=== PATIENT | female | born 1930 | race Caucasian/White ===

== ENCOUNTER 2016-11-13 15:44 | Inpatient (IN) | payer MEDICARE, MEDICAID ==
[~2016-11-13] VITALS: Ht 152.4 cm; Wt 85.3 kg
[~2016-11-13 15:44] MED LIST: AMLO5TAB2 PO; ASPI81TA2 PO; ATOR10TA PO; CALC500T51 PO; CARV6.252 PO; CLOP75TA2 PO; CYAN500T4 PO; ENOX80DI9 SQ; ERGO50003 PO; ESOM40CA PO; FERR-58 PO; FLUT1DIS3 IH; FOLI1TAB16 PO; FURO40TA5 PO; INSU100V27 SQ; INSULIN ASPART NOVOLOG 100 UNIT/ML CARTRIDGE SQ SCH; LINA5TAB PO; MECL-102 PO; MELO-264 PO; POTA8TAB3 PO; REPA2TAB9 PO; RIVA10TA PO; TIOT4MIS5 IH; TRAV5DRO EACHEYE
--- NOTE | 2016-11-13 16:00 | NUR ---
PT TO ED ROOM 07. SOB; FAMILY CALLED 911; INITIAL SATS 88% ON RA; ASCITIS. A/A/O. SIDE RAISL UP. HOB ELEVATED. CONNECTED TO MONITOR. SEEN AND EVALUATED BY ED OJ. O2 VIA NR MASK.
--- NOTE | 2016-11-13 16:12 | NUR ---
BLOOD TESTS COLELCTED AND SEND TO LAB.
[2016-11-13 16:15] LABS: BASOPHILS # (AUTO) 0.1 /CMM (0.0-0.2); EOSINOPHILS # (AUTO) 0.2 /CMM (0.0-0.7); EOSINOPHILS % (AUTO) 3.7 % (0.0-6.0); HEMATOCRIT 26 % (33-45); HEMOGLOBIN 8.2 g/dL (11.5-14.8); LYMPHOCYTES # (AUTO) 0.8 /CMM (0.8-4.8); MEAN CORPUSCULAR HEMOGLOBIN 26 PG (26.0-33.0); MEAN CORPUSCULAR HGB CONC 32 g/dl (31.0-36.0); MEAN CORPUSCULAR VOLUME 83 fL (82-100); MONOCYTES # (AUTO) 0.3 /CMM (0.1-1.30); MONOCYTES % (AUTO) 6.1 % (2.0-12.0); NEUTROPHILS # (AUTO) 4.2 /CMM (1.8-8.9); NEUTROPHILS % (AUTO) 73.2 % (43.0-81.0); PLATELET COUNT (AUTO) 150 /CMM (150-450); RDW COEFFICIENT OF VARIATION 17.9 (11.5-15.0); RED BLOOD CELL COUNT(AUTO) 3.09 MIL/uL (4.0-5.2); WHITE BLOOD COUNT (AUTO) 5.6 K/uL (4.3-11.0)
[2016-11-13 16:26] LABS: CALCIUM, SERUM 7.8 mg/dL (8.5-10.1); CARBON DIOXIDE 26 mmol/L (21-32); CHLORIDE 109 mmol/L (98-107); CREATININE 1.6 mg/dL (0.6-1.3); GLUCOSE 196 mg/dL (74-106); POTASSIUM 4.2 mmol/L (3.5-5.1); SODIUM SERUM 139 mmol/L (136-145); UREA NITROGEN, BLOOD 32 mg/dL (7-18)
[2016-11-13 16:27] LABS: INR 1.16 (0.87-1.13); PROTHROMBIN TIME 12.2 SECS (9.5-12.7)
[2016-11-13 16:40] LABS: TROPONIN I < 0.017 ng/mL (0.00-0.056)
[2016-11-13 16:42] LABS: ALANINE AMINOTRANSFERASE 7 U/L (12-78); ALBUMIN 2.4 g/dL (3.4-5.0); ALKALINE PHOSPHATASE 94 U/L (46-116); ASPARTATE AMINOTRANSFERASE 12 U/L (15-37); B-TYPE NATRIURETIC PEPTIDE 10027 PG/ML (0-125); BILIRUBIN,DIRECT 0.2 mg/dL (0.0-0.2); BILIRUBIN,TOTAL 0.5 mg/dL (0.2-1.0); TOTAL PROTEIN, SERUM 7.2 g/dL (6.4-8.2)
--- NOTE | 2016-11-13 16:47 | NUR ---
Patient is resting comfortably in bed with eyes closed. Easily aroused. VSS
[2016-11-13] MEDS ORDERED: LUBI24CA7 PO (16:49)
[2016-11-13] MEDS ORDERED: VORT10TA PO (16:49)
[2016-11-13] MEDS ORDERED: LEVO100T9 PO (16:49)
[2016-11-13] MEDS ORDERED: DEXL60CA3 PO (16:49)
--- NOTE | 2016-11-13 17:00 | NUR ---
CALLED NURSING SUP. FOR TELE BED
--- NOTE | 2016-11-13 17:05 | NUR ---
denny granddaughter [phone] fish grandson [phone]
--- NOTE | 2016-11-13 17:14 | NUR ---
CALLED , LEFT MESSAGE ON VOICEMAIL
--- NOTE | 2016-11-13 17:28 | NUR ---
REPAGED SHARON COBB
--- NOTE | 2016-11-13 17:40 | NUR ---
Patient is resting comfortably in bed with eyes closed. Easily aroused. VSS
--- NOTE | 2016-11-13 17:42 | NUR ---
CALLED AGAIN, LEFT MESSAGE ON VOICEMAIL
--- NOTE | 2016-11-13 18:06 | NUR ---
REPORT GIVEN TO 311-2 NURSE ELVIRA. PT ADMITETD BY SHARON ELLIOTT
--- NOTE | 2016-11-13 18:35 | NUR ---
SECONDARY SET UP MAN NOTES RECEIVED PATIENT FROM ER VIA GURNEY; ALERT & ORIENTED X4, YI SPEAKING; DENIES PAIN; RAC IV HL 20G, FLUSHES WELL, SITE CLEAR; ABD DISTENDED, NONTENDER; NO NAUSEA/VOMITING; VITAL SIGNS FOLLOWS, BP 132/67, HR 65, RR 18, TEMP 97.6 F, O2 SAT 100% 2L NASAL CANNULA; ALL NEEDS ANTICIPATED; PATIENT COMFORTABLE; PLACED ON OFFICE SERVICES REPRESENTATIVE, V-PACING; CALL LIGHT WITHIN REACH; SAFETY PRECAUTIONS IN PLACE; BED LOW & LOCKED; WILL ENDORSE TO NEXT SHIFT FOR HOMER.
--- NOTE | 2016-11-13 19:34 | NUR ---
RAG SORTER AND CUTTER INITIAL NOTES: RECEIVED REPORT FROM LOIS WISE RN. PT ON BED, AWAKE, A/O X3 URDU SPEAKING ONLY ON 2L VIA NC, RESPIRATION EVEN AND UNLABORED. NO SOB NOTED. CALM AND COMFORTABLE AT THIS TIME. PT HAS RIGHT AC G 20 PATENT AND FLUSHING WELL, ON HL. NOTED PT TO HAVE ABDOMINAL DISTENTION, SOFT NON TENDER, HYPOACTIVE BOWEL SOUND HEARD UPON AUSCULTATION. PT HAS RIGHT CW PACEMAKER, CURRENTLY ON V PACING HR 65. BLE OFFLOADED. ORIENTED PT TO UNIT POLICY AND HOURLY ROUNDING. SAFETY PRECAUTIONS FOR FALL INITIATED CALL LIGHT IN REACH. WILL CONTINUE TO MONITOR
--- NOTE | 2016-11-13 19:35 | NUR ---
GUN FERTILIZER NOTES: CONTACTED DR HERRERA'S EXCHANGE, , FOR ADMITTING ORDERS, DIDNT POTATO PEELER THE CALL, PER EXCHANGE TO CALL DR HERRERA ON HIS OWN CELLPHONE [phone]
--- NOTE | 2016-11-13 19:37 | NUR ---
AUDIT CLERKS SUPERVISOR NOTES: TALKED TO DR BARNARD REGARDING HIS ADMITTING ORDERS: PER MD TO CONTINUE HOME MEDICATION BUT HOLD THE FOLLOWING: HOLD: LUBIPROSTONE/AMITIZA 24MCG PO BID HOLD: CALCIUM CARBONATE 500MG PO BID HOLD: ASPIRIN 81MG PO, HOLD FOR 2DAYS STARTING TONIGHT(11/13/16) AND START ON THE 3RD DAY WHICH IS 11/15/16 PER FERROUS SULFATE, PER DR HERRERA, GET THE IRON PANEL LEVEL FIRST, IF LEVEL IS BELOW 40 THEN START FERRLICIT 125MG IV DAILY FOR 3DAYS PER LEVOTHYROXINE, GET TSH LEVEL FIRST, THEN CONTINUE THE MEDICATION OTHER MEDICATIONS INCLUDING BP MEDS AND LASIXMD GAVE PARAMETERS ALL ORDERS/HOME MEDS REPORT WITH ORDERS FROM DR HERRERA WAS SENT TO PHARMACY, ZAY RECEIVED THE FAXED ORDER
--- NOTE | 2016-11-13 19:55 | NUR ---
PROPERTY MAN INITIAL NOTES: RECEIVED REPORT FROM LOIS WISE RN. PT ON BED, AWAKE, A/O X3 THAI SPEAKING ONLY ON 2L VIA NC, RESPIRATION EVEN AND UNLABORED. NO SOB NOTED. CALM AND COMFORTABLE AT THIS TIME. PT HAS RIGHT AC G 20 PATENT AND FLUSHING WELL, ON HL. NOTED PT TO HAVE ABDOMINAL DISTENTION, SOFT NON TENDER, HYPOACTIVE BOWEL SOUND HEARD UPON AUSCULTATION. PT HAS RIGHT CW PACEMAKER, CURRENTLY ON V PACING HR 65. BLE OFFLOADED. ORIENTED PT TO UNIT POLICY AND HOURLY ROUNDING. SAFETY PRECAUTIONS FOR FALL INITIATED CALL LIGHT IN REACH. WILL CONTINUE TO MONITOR Addendum: 11/14/16 at 0231 by YOSEPH JIMENEZ RN DISREGARD ABOVE DOCUMENTATION WRONG TIME DOCUMENTED
[2016-11-13 20:00] VITALS: BP 137/65
--- NOTE | 2016-11-13 20:14 | NUR ---
ENT NURSE NOTES: CONTACTED DR HERRERA, PER EXCHANGE DR MARTÍNEZ COMMISSION SALES ASSOCIATE THE CALL AND EXCHANGED STATED TO CALL ON HIS PERSONAL NUMBER, HOWEVER PRIOR TO CALLING DR ALREADY CONTACTED THE UNIT. TALKED TO DR BARNARD, INFORMED ABOUT MEDICATION CLARIFICATION, PER PHARMACY REGARDING INSULIN LISPRO/HUMALOG, PER MD TO GIVE 5UNITS OF HUMALOG BEFORE MEALS SQ TID,
--- NOTE | 2016-11-13 20:20 | NUR ---
INSIDE BARREL POLISHER NOTES: PER ZAY BETTENCOURT, PT'S HOME MEDS BRENTILLEX IS NON FORMULARY AND ASK IF PT CAN PROVIDE THE MEDICATION
[2016-11-13 20:39] LABS: IRON, SERUM 20 ug/dl (50-175); TOTAL IRON BINDING CAPACITY 187 ug/dl (250-450)
--- NOTE | 2016-11-13 21:00 | NUR ---
CLEANING TECHNICIAN NOTES: TALKED TO [facility], REGARDING MEDICATION HUMALOG 5UNITS SCHEDULED FOR 1700 WHICH IS ALREADY NOT MY SHIFT, SHE STATED SHE WILL SCHEDULE IT FOR TOMORROW AND MAKE SURE TO CHECK BLOOD SUGAR BEFORE GIVING IT,
--- NOTE | 2016-11-13 22:00 | NUR ---
CONE TRUCKER NOTES: INVENTORY OF BELONGING COMPLETED B JADE JAMES, ALSO SKIN ASSESSMENT PERFORMED AND PLEASE SEE SKIN ASSESSMENT PAGE/TAB FOR SKIN ISSUES NOTED, ALL PICTURES PRINTED AND ATTACHED TO CHART. PT HAS NO SKIN ISSUES ON THE SACRAL BUTTOCKS AREA.
[2016-11-13] MEDS: BLOOD SUGAR DIAGNOSTIC 1 EACH STRIP IN SCH (22:21)
[2016-11-13 22:22] VITALS: BP 125/63
[2016-11-13] MEDS: CARVEDILOL 6.25 MG TABLET PO SCH (22:22)
[2016-11-13] MEDS: INSULIN ASPART NOVOLOG 100 UNIT/ML CARTRIDGE SQ PRN (22:24)
--- NOTE | 2016-11-13 22:24 | NUR ---
DIRECTOR TRANSITION NOTES: CHECKED BLOOD SUGAR AND REVEAL 153, 2UNITS OF INSULIN HUMALOG GIVEN PER SLIDING SCALE, WILL MONITOR PT FOR ANY S/S OF HYPO OR HYPERGLYCEMIA
--- NOTE | 2016-11-13 22:30 | NUR ---
EXTENSION EDGER NOTES: RECEIVED CALL FROM DR HERRERA, HE STATED TO PUT A CONSULT ORDER FOR THE FF MD: DR PINEDA--CARDIO CONSULT DR ARAGON --- PULMO CONSULT DR VALENTIN--- GI CONSULT SANJAY ABREU---NEPHRO CONSULT ALSO HE ADDED TO PUT PT ON NPO P MN FOR US GUIDED PARACENTESIS IN AM.
--- NOTE | 2016-11-13 23:05 | NUR ---
HOUSEKEEPING DEPARTMENT WORKER NOTES: MEASURE PT'S ABDOMINAL GIRTH REVEAL 144.5 CM
--- NOTE | 2016-11-13 23:26 | NUR ---
HANDLE SEWER NOTES: INTERVIEW PT'S SON FOR THE ADMISSION SINCE PT CAN ONLY SPEAK GUAMANIAN, WHEN ASKED ABOUT VACCINATION STATUS PT STATED SHE CANNOT RECALL, SO THE SON SAID TO ASK DR HERRERA INSTEAD SINCE THE SAID MD WAS THE PT'S PRIMARY CARE PHYSICIAN
--- NOTE | 2016-11-13 23:27 | NUR ---
AUTOMATION QA LEAD NOTES: INFORMED TREV, PT'S SON IF POSSIBLE TO BRING HOME MEDICATION BRENTILEX AND DEXILLANT [facility]NT CARRY THE SAID MEDICATION, PT'S SON STATED OKAY AND WILL BRING TOMORROW
--- NOTE | 2016-11-13 23:29 | NUR ---
NON FERROUS MATERIAL HANDLER NOTES: PT'S SON CAME TODAY, ALSO GIVE FULL CONSENT REGARDING US GUIDED PARACENTESIS, TREV BRUCE [phone], HE ALSO STATED TO CALL HIM ANYTIME IF NEEDED
[2016-11-14] VITALS (20 sets, daily range): BP systolic 84–148; BP diastolic 14–83
[2016-11-14] MEDS: IPRATROPIUM NEB FS 0.5 MG/2.5 ML AMPUL.NEB NEB SCH ×5 (01:50→19:39)
[2016-11-14 01:54] LABS: APPEARANCE,URINE CLEAR (CLEAR); BILIRUBIN,URINE NEGATIVE (NEGATIVE); BLOOD, URINE NEGATIVE Ery/uL (NEGATIVE); COLOR,URINE YELLOW (YELLOW); KETONES,URINE NEGATIVE (NEGATIVE); LEUKOCYTE ESTERASE ,URINE TRACE (NEGATIVE); NITRITE, URINE NEGATIVE (NEGATIVE); PROTEIN,URINE 1+ mg/dl (NEGATIVE); UGLUCOSE NEGATIVE (NEGATIVE); UROBILINOGEN,URINE 0.2 EU/dL (0.2)
[2016-11-14 02:01] LABS: ADD URINE CULTURE NO; RBC,URINE 0-2 /HPF (0-2); WBC,URINE 0-2 /HPF (0-3)
[2016-11-14 02:02] LABS: BACTERIA,URINE None seen /HPF (None Seen); SQUAMOUS EPITHELIAL CELL,UR Moderate /HPF (None Seen)
--- NOTE | 2016-11-14 03:10 | NUR ---
LEAD SPRINKLER NOTES: PT'S FAMILY MEMBER PASHA BRUCE CAME TO SEE THE PT, AND ASKING TO DO THE PARACENTESIS NOW, EXPLAINED TO THE FAMILY THAT PARACENTESIS WILL BE DONE IN AM PER DR HERRERA VITAL SIGNS AND LABORATORY NEEDS TO BE CHECK TO MAKE SURE PT IS STABLE TO DO THE PROCEDURE, EMERITA NURSING SUP AND INSOLE REINFORCER LIA PRESENT AT THE STATION,
--- NOTE | 2016-11-14 03:28 | NUR ---
COATING LINE WORKER NOTES: CHECKED BLOOD SUGAR AND REVEAL 145, NO INSULIN COVERAGE GIVEN BLOOD SUGAR ONLY CHECK PER PROTOCOL, HUMALOG GIVEN AT 2222
[2016-11-14] MEDS: BLOOD SUGAR DIAGNOSTIC 1 EACH STRIP IN SCH ×4 (06:24→22:26)
[2016-11-14] MEDS: INSULIN ASPART NOVOLOG 100 UNIT/ML CARTRIDGE SQ PRN (06:24)
--- NOTE | 2016-11-14 06:24 | NUR ---
BUSINESS DATA ANALYST NOTES: CHECKED BLOOD SUGAR AND REVEAL 147, NO INSULIN COVERAGE GIVEN PT ON NPO FOR PARACENTESIS IN AM
--- NOTE | 2016-11-14 06:45 | NUR ---
telephone services sales representative closing notes: pt on bed, awake, a/o x3, on 2l via nc, spo2 95-98%. pt on npo for paracentesis today, consent secured. ble offloaded. right ac iv access remains patent and flushing well, on hl. pt remains v pacing hr 65. vs remains stable, needs attended. safety precautions for fall remains engaged, call light in reach, will endorse to day rn for ciera.
[2016-11-14] MEDS ORDERED: LEVOTHYROXINE SODIUM 100 MCG TABLET PO SCH (07:30)
[2016-11-14] MEDS: LEVOTHYROXINE SODIUM 100 MCG TABLET PO SCH ×2 (07:30→11:08)
--- NOTE | 2016-11-14 07:30 | NUR ---
CMV DRIVER OPENING RECEIVED PATIENT A/OX4 BRITISH SPEAKING ONLY. PATIENT HAS VISUAL DIFFICULTY BREATHING WITH ACCESSORY MUSCLE USAGE. PATIENT ON ROOM AIR 87% ON 1 LM 98%. PATIENT PULLED UP AND REPOSITIONED SITTING UPRIGHT TO HELP WITH BREATHING. PATIENT STATES NO NEEDS AT THIS TIME. PATIENT NPO FOR PARACENTESIS..WILL CONFIRM WITH MD. PATIENT WITH CALL LIGHT IN REACH, BED LOWERED AND LOCKED, RAILS UPX3 FOR SAFETY AND WILL ROUND Q2H OR LESS PER NEEDS
[2016-11-14 07:45] LABS: INR 1.06 (0.87-1.13); PROTHROMBIN TIME 11.4 SECS (9.5-12.7)
[2016-11-14 07:53] LABS: BASOPHILS % (AUTO) 0.4 % (0.0-2.0); EOSINOPHILS # (AUTO) 0.1 /CMM (0.0-0.7); EOSINOPHILS % (AUTO) 2.8 % (0.0-6.0); HEMATOCRIT 27 % (33-45); HEMOGLOBIN 8.5 g/dL (11.5-14.8); LYMPHOCYTES # (AUTO) 0.5 /CMM (0.8-4.8); LYMPHOCYTES % (AUTO) 11.3 % (20.0-44.0); MEAN CORPUSCULAR HEMOGLOBIN 26 PG (26.0-33.0); MEAN CORPUSCULAR HGB CONC 31 g/dl (31.0-36.0); MEAN CORPUSCULAR VOLUME 84 fL (82-100); MONOCYTES # (AUTO) 0.3 /CMM (0.1-1.30); MONOCYTES % (AUTO) 5.2 % (2.0-12.0); NEUTROPHILS # (AUTO) 3.9 /CMM (1.8-8.9); NEUTROPHILS % (AUTO) 80.3 % (43.0-81.0); PLATELET COUNT (AUTO) 146 /CMM (150-450); RDW COEFFICIENT OF VARIATION 19.2 (11.5-15.0); RED BLOOD CELL COUNT(AUTO) 3.24 MIL/uL (4.0-5.2); WHITE BLOOD COUNT (AUTO) 4.9 K/uL (4.3-11.0)
[2016-11-14 08:11] LABS: CALCIUM, SERUM 8.5 mg/dL (8.5-10.1); CREATININE 1.6 mg/dL (0.6-1.3); MAGNESIUM 1.8 mg/dL (1.8-2.4); POTASSIUM 4.6 mmol/L (3.5-5.1)
--- NOTE | 2016-11-14 08:15 | NUR ---
MS RN NOTES NOTIFIED DR JUAREZ OF CARDIO CONSULT FOR PATIENT
[2016-11-14] MEDS ORDERED: MECLIZINE HCL 25 MG TABLET PO PRN (09:00)
[2016-11-14] MEDS: LINAGLIPTIN 5 MG TABLET PO SCH (09:00)
[2016-11-14] MEDS ORDERED: FUROSEMIDE 40 MG TABLET PO SCH (09:00)
[2016-11-14] MEDS: INSULIN ASPART NOVOLOG 100 UNIT/ML CARTRIDGE SQ SCH ×3 (09:00→17:26)
[2016-11-14] MEDS ORDERED: ATORVASTATIN 10 MG TABLET PO SCH (09:00)
[2016-11-14] MEDS ORDERED: Medication Not On Formulary EA (Tiotropium Bromide (Spiriva Respimat) 2 PUFF) IH SCH (09:00)
--- NOTE | 2016-11-14 09:00 | NUR ---
MS RN NOTES PARACENTESIS CHANGED TO STAT PER MD ORDER. AND PER MD KEEP PATIENT NPO.
--- NOTE | 2016-11-14 09:23 | NUR ---
MS RN NOTES PER DR HERRERA TRANSFER PATIENT TO ICU ON BIPAP. CALLED MEG MATUTE FOR BED
[2016-11-14] MEDS: ENOXAPARIN SODIUM 30 MG/0.3 ML DISP.SYRIN SQ SCH (09:30)
--- NOTE | 2016-11-14 09:31 | NUR ---
MS RN NOTES MESSAGE TO DR ARAGON AND DR VALENTIN TO NOTIFY OF CONSULTS
[2016-11-14] MEDS ORDERED: SECONDARY IV SET 1 EA INFUS.SET MC ONE ×2 (09:36→14:10)
[2016-11-14 09:41] LABS: ABG BASE EXCESS -2.3 mmol/L; ABG OXYGEN SATURATION 96.4 % (92.0-98.5); ABG PCO2 48.1 mmHg (35.0-45.0); ABG PH 7.314 (7.350-7.450); ABG TOTAL HEMOGLOBIN 8.7 G/dL (12.0-16.0); AaDO2 18.9 mmHg; COHb 1.5 % (0.5-1.5); MetHb 1.1 % (0.0-1.5); O2Hb 93.9 % (94.0-97.0); SITE, ABG Right Radial; VENT MODE, BG Nasal Cannula
[2016-11-14] MEDS ORDERED: IV NS 0.9% 250 ML IV ONE (09:46)
[2016-11-14] MEDS ORDERED: IV SET PRIMARY PUMP SET 1 EA INFUS.SET MC ONE ×2 (09:46→10:54)
[2016-11-14] MEDS: Magnesium 1GM/D5W 100ML PREMIX 100 ML IV SCH ×2 (09:46→11:08)
[2016-11-14] MEDS: FUROSEMIDE 40 MG/4 ML VIAL IV SCH ×3 (09:47→17:10)
[2016-11-14 09:50] LABS: TROPONIN I < 0.017 ng/mL (0.00-0.056)
--- NOTE | 2016-11-14 10:13 | NUR ---
MS RN NOTES REPORT CALLED TO RN
--- NOTE | 2016-11-14 10:30 | NUR ---
MS NITROGLYCERIN NEUTRALIZER PATIENT TRANSFERED TO ICU SHELLEY RN GIVEN CARE OF PATIENT.
[2016-11-14] MEDS: REPAGLINIDE 2 MG TABLET PO SCH ×3 (10:59→17:10)
--- NOTE | 2016-11-14 11:00 | NUR ---
IMCU SPECIALIST NOTES RECEIVED PATIENT FROM 3 WEST TRANSFER DUE TO SOB , AOX4 TELUGU SPEAKING ONLY , NOTED WITH SOB , ON 2LPM NC SPO2 OF 97% , HOB @ HIGH FOWLERS DUE TO LARGE ABDOMINAL ASCITES , WITH LEFT CHEST WALL PACEMAKER , V PACING 65 ON BEDSIDE MONITOR , IV OF R AC # 20 PATENT AND INTACT , NS @ TKO , ALL NEEDS ATTENDED , BED ON LOW AND LOCKED POSITION , SIDE RAILS X2 ,HOB AT HIGH FOWLERS , CALL LIGHT WITHIN REACH , WILL CONTINUE TO MONITOR .
--- NOTE | 2016-11-14 11:05 | NUR ---
MARBLE HELPER NOTES CALLED ANI LONG RN HELD AM MEDS PT IS NPO FOR PARACENTESIS , DISCUSSED AND VERIFIED IF I CAN ADMINISTER P.O MEDS , PER OK TO GIVE PO MEDS .
--- NOTE | 2016-11-14 11:06 | NUR ---
WOUND CARE CONSULT: PT NOT SEEN YET FOR SKIN ASSESSMENT DUE TO PT HAVING LABORED BREATHING AND IN ICU AT THIS TIME. RECOMMENDATIONS MADE FOR SKIN PROTECTION. DISCUSSED WITH NURSING STAFF. MD IN AGREEMENT WITH PLAN OF CARE. WILL SEE PRN.
[2016-11-14] MEDS: CYANOCOBALAMIN 500 MCG TABLET PO SCH (11:08)
[2016-11-14] MEDS: FLUTICASONE/SALMETEROL DISKUS IH SCH ×2 (11:08→17:11)
[2016-11-14] MEDS: AMLODIPINE BESYLATE 5 MG TABLET PO SCH (11:09)
[2016-11-14] MEDS: CARVEDILOL 6.25 MG TABLET PO SCH ×2 (11:09→20:19)
[2016-11-14] MEDS: FOLIC ACID 1 MG TABLET PO SCH (11:09)
[2016-11-14] MEDS ORDERED: Z GUARD REMEDY 2 OZ OINT TP PRN (11:30)
[2016-11-14] MEDS: ALBUMIN 25% 25 GM in PREMIX 1 EA IV SCH ×3 (12:21→22:33)
--- NOTE | 2016-11-14 12:43 | NUR ---
LOGISTICS OPERATIONS DIRECTOR NOTES CALLED DR BARNARD , DISCUSSED LABS , CHEST XRAY AND ABG RESULT , SP2 OF 100% VIA 2LPM NC , NO BIPAP PLACED PT IS TOLERATING 2LPM NC , V/S STABLE , AFEBRILE ,DISCUSSED ALL P.O MEDS OK TO GIVE PER MD , OK TO INSERT MEJIA CATHETER PT IS GETTING LASIX 40MG . WILL CONTINUE TO MONITOR
--- NOTE | 2016-11-14 13:12 | NUR ---
BLENDER NOTES DR CARBAJAL AT BEDSIDE FOR PARACENTESIS, CONSENT VERIFIED , PT STABLE AT THIS TIME , SON DENIES THAT PT IS TAKING ANY ANTICOAGULANTS AT HOME , WILL CONTINUE TO MONITOR
--- NOTE | 2016-11-14 13:30 | NUR ---
BESSEMER BOTTOM MAKER NOTES DR ARAGON AT BEDSIDE , DISCUSSED PT LABS , CHEST XRAY AND ABG RESULT , TRASNFFERED TO ICU DUE TO SHORTNESS OF BREATH AND BIPAP , CURRENTLY TOLERATING 2LPM WITH SPO2 OF 100% , NO SOB NOTED , WITH ONGOING PARACENTESIS , 12 000 L OUT , PER MD NO BIPAP , CONTINUE 2LPM NC . WILL CONTINUE TO MONITOR
--- NOTE | 2016-11-14 14:10 | NUR ---
INSIDE PARTS SALES NOTES PT STABLE POST PARACENTESIS , REMOVED 12,000 DARK BROWN LIQUID OUTPUT , AFEBRILE , SPO2 OF 100% VIA 2LPM PT DENIES DISCOMFORT AND SOB , LUQ PARACENTESIS SITE INTACT NO ACTIVE BLEEDING NOTED , BP OF 124/44 , HR OF V PACING 68 ON BEDSIDE MONITOR , WILL CONTINUE TO MONITOR
[2016-11-14] MEDS: SOD FERRIC GLUC 125 MG in IV NS 0.9% 100 ML IV SCH (14:15)
[2016-11-14 15:19] LABS: AMYLASE 33 U/L (25-115); LIPASE 161 U/L (73-393)
[2016-11-14 15:23] LABS: CHOLESTEROL 82 mg/dL (<200); HDL CHOLESTEROL 29 mg/dL (40-60); LDL 40 mg/dL (0-99); TRIGLYCERIDES 77 mg/dL (30-150)
--- NOTE | 2016-11-14 15:33 | NUR ---
LACTATION CONSULTANT NOTES RECEIVED A CALL FROM DR BARNARD , PER MD ORDER C/S WITH CYTOLOGY FOR THE ASCITES FLUIDS , LIPID PANEL , AMYLASE , LIPASE URINE SPECIFIC GRAVITY AND ALBUMIN LEVEL , PARACENTESIS DONE , REMOVED 12,000 OF CLEAR BROWN OUTPUT , PT STABLE POST PARACENTESES, , MD JANAK SOLORZANO AT BEDSIDE FOR PACEMAKER INTERROGATION , PACEMAKER WITHIN NORMAL LIMITS , REPORT PLACED IN THE CHART .
--- NOTE | 2016-11-14 15:58 | NUR ---
GEAR GENERATOR SET UP OPERATOR NOTES ASCITES FLUID SPECIMEN TOTAL OF 12 BOTTLES / 12,000L LABELED AND SENT TO LAB , WILL CONTINUE TO MONITOR
--- NOTE | 2016-11-14 17:20 | NUR ---
INDUSTRIAL ROOF PLUMBER NOTES DR VALENTIN AT BEDSIDE , DISCUSSED PT HISTORY , AND LABORATORY RESULTS , S/P PARACENTESIS WITH 12, 000 LITERS OF CLEAR YELLOW ASCITES FLUIDS OUT SEND FOR CULTURE AND SENSITIVITY , CURRENTLY NPO , PER MD START PT ON 2GM SODIUM DIET , AND START PROTONIX IVP , .
--- NOTE | 2016-11-14 19:34 | NUR ---
HEART NURSE: Received pt guyanese speaking, pt is aaao x3, no distress, s/p Paracentesis due to acute large ascites, huge 34106 ml out. Patient on 2l nasal cannula saturating 98%. denied pain. Patient had big bm, assisted with bedpan. All needs attended. Keep monitoring.....
--- NOTE | 2016-11-14 19:43 | NUR ---
HOT IRON WORKER: RN RECEIVED CALL FROM DR ORTIZ, NEW ORDERS: ALBUMIN 25% X4 DOSES WILL BE START TOMORROW AT 0900 AM., CBC AND BMP IN AM.
[2016-11-14] MEDS: PANTOPRAZOLE 40 MG VIAL IV SCH (20:18)
[2016-11-15] VITALS (26 sets, daily range): BP systolic 73–138; BP diastolic 37–90
[2016-11-15] MEDS: IPRATROPIUM NEB FS 0.5 MG/2.5 ML AMPUL.NEB NEB SCH ×4 (00:43→19:40)
[2016-11-15] MEDS: ALBUMIN 25% 25 GM in PREMIX 1 EA IV SCH ×4 (03:41→20:16)
[2016-11-15 05:28] LABS: BASOPHILS % (AUTO) 0.1 % (0.0-2.0); EOSINOPHILS # (AUTO) 0.1 /CMM (0.0-0.7); HEMATOCRIT 23 % (33-45); HEMOGLOBIN 7.4 g/dL (11.5-14.8); LYMPHOCYTES # (AUTO) 0.5 /CMM (0.8-4.8); LYMPHOCYTES % (AUTO) 15.3 % (20.0-44.0); MEAN CORPUSCULAR HEMOGLOBIN 26 PG (26.0-33.0); MEAN CORPUSCULAR HGB CONC 32 g/dl (31.0-36.0); MEAN CORPUSCULAR VOLUME 83 fL (82-100); MONOCYTES # (AUTO) 0.2 /CMM (0.1-1.30); MONOCYTES % (AUTO) 6.7 % (2.0-12.0); NEUTROPHILS # (AUTO) 2.2 /CMM (1.8-8.9); NEUTROPHILS % (AUTO) 73.9 % (43.0-81.0); PLATELET COUNT (AUTO) 104 /CMM (150-450); RDW COEFFICIENT OF VARIATION 18.3 (11.5-15.0)
[2016-11-15 05:37] LABS: ALBUMIN 2.9 g/dL (3.4-5.0); BILIRUBIN,TOTAL 0.6 mg/dL (0.2-1.0); CREATININE 1.4 mg/dL (0.6-1.3); MAGNESIUM 1.9 mg/dL (1.8-2.4); PHOSPHORUS 4.3 mg/dL (2.5-4.9); POTASSIUM 4.3 mmol/L (3.5-5.1); TOTAL PROTEIN, SERUM 6.1 g/dL (6.4-8.2)
[2016-11-15 05:38] LABS: TROPONIN I 0.023 ng/mL (0.00-0.056)
--- NOTE | 2016-11-15 07:15 | NUR ---
GERIATRIC PSYCHIATRIST NOTES RECEIVED PATIENT AOX4 MARTINIQUAIS SPEAKING ONLY , NOT IN ACUTE DISTRESS , DENIES SOB AND DISCOMFORT AT THIS TIME , ON 2LPM NC SPO2 OF 100% , HOB @ HIGH FOWLERS DUE TO LARGE ABDOMINAL ASCITES , WITH LEFT CHEST WALL PACEMAKER , V PACING 67 ON BEDSIDE MONITOR , IV OF R AC # 20 PATENT AND INTACT , NS @ TKO ,R FA # 20 AND L FFA # 20 PATENT AND INTACT SL , BSC PROVIDED , ALL NEEDS ATTENDED , BED ON LOW AND LOCKED POSITION , SIDE RAILS X2 ,HOB AT HIGH FOWLERS , CALL LIGHT WITHIN REACH , WILL CONTINUE TO MONITOR .
[2016-11-15] MEDS: BLOOD SUGAR DIAGNOSTIC 1 EACH STRIP IN SCH ×4 (07:44→22:00)
[2016-11-15] MEDS: REPAGLINIDE 2 MG TABLET PO SCH ×3 (07:53→17:00)
[2016-11-15] MEDS: INSULIN ASPART NOVOLOG 100 UNIT/ML CARTRIDGE SQ SCH ×3 (07:54→17:00)
[2016-11-15] MEDS: ENOXAPARIN SODIUM 30 MG/0.3 ML DISP.SYRIN SQ SCH (07:54)
[2016-11-15] MEDS: LINAGLIPTIN 5 MG TABLET PO SCH (07:54)
[2016-11-15] MEDS: CYANOCOBALAMIN 500 MCG TABLET PO SCH (08:00)
[2016-11-15] MEDS: LEVOTHYROXINE SODIUM 100 MCG TABLET PO SCH (08:00)
[2016-11-15] MEDS: FOLIC ACID 1 MG TABLET PO SCH (08:00)
[2016-11-15] MEDS: FLUTICASONE/SALMETEROL DISKUS IH SCH ×2 (08:00→17:12)
[2016-11-15] MEDS: CARVEDILOL 6.25 MG TABLET PO SCH ×2 (08:04→20:13)
[2016-11-15] MEDS: AMLODIPINE BESYLATE 5 MG TABLET PO SCH (08:04)
[2016-11-15] MEDS: FUROSEMIDE 40 MG/4 ML VIAL IV SCH ×3 (08:51→17:12)
--- NOTE | 2016-11-15 09:00 | NUR ---
PHYSICAL METEOROLOGIST NOTES PRANDIN 2MG . TRADJENTA 5MG , INSULIN NOVOLOG 5U HELD DUE TO BS OF 60MGDL , LOVENOX 320MG HELD DUE TO H/H 7.11/02 , NO ACTIVE BLEEDING NOTED AT THIS TIME ,WILL CONTINUE TO MONITOR
--- NOTE | 2016-11-15 09:32 | NUR ---
EDUCATIONAL RESOURCE COORDINATOR NOTES PT TRANSFERRED TO ROOM 310-1 , STABLE AT THIS TIME , AFEBRILE , NO HOMER NOTED , SPO2 OF 100% VIA 2LPM NC , BP OF 95/35 , REPORT GIVEN TO SUSSY FOR CONTINUITY OF CARE
--- NOTE | 2016-11-15 09:37 | NUR ---
LITIGATOR NOTES CALLED JANNA ANDRES @ [phone] LEFT A MESSAGE , NOTIFIED PT WAS TRANSFERRED TO ROOM 310-1
--- NOTE | 2016-11-15 09:50 | NUR ---
INNERSOLE FITTERMECHANICAL EXPERT NOTE PATIENT IS ALERT AND ORIENTED x4. FIJIAN SPEAKING. NO PAIN AT THIS TIME. NO SOB OR DISTRESS NOTED. CALL LIGHT WITHIN REACH. SAFETY MEASURES IMPLEMENTED. RECEIVED REPORT FROM SUPERVISOR REMELT CM. FAMILY INFORMED ABOUT TRANSFER. IV INTACT AND PATENT NO REDNESS OR SWELLING NOTED. ALL BELONGINGS ACCOUNTED FOR. WILL MONITOR PATIENT
[2016-11-15] MEDS ORDERED: IV NS 0.9% 1,000 ML ONE (11:25)
[2016-11-15] MEDS ORDERED: BLOOD IV SET 1 EA INFUS.SET MC ONE ×2 (11:25→17:48)
[2016-11-15] MEDS ORDERED: IV SET PRIMARY PUMP SET 1 EA INFUS.SET MC ONE ×2 (12:27→20:48)
[2016-11-15] MEDS: SOD FERRIC GLUC 125 MG in IV NS 0.9% 100 ML IV SCH (14:00)
--- NOTE | 2016-11-15 14:00 | NUR ---
MS RN NOTE UNABLE TO GIVE FERLECIT DUE TO BLOOD TRANSFUSION RUNNING
[2016-11-15] MEDS: DEXTROSE 50%-WATER 50 ML DISP.SYRIN IV PRN (17:22)
[2016-11-15] MEDS ORDERED: IV NS 0.9% 250 ML IV ONE ×2 (17:48→20:48)
--- NOTE | 2016-11-15 18:14 | NUR ---
OIL WELL DRILLING MANAGER CLOSING NOTE PATIENT IS ALERT AND ORIENTED x4. NO PAIN AT THIS TIME. NO SOB OR DISTRESS NOTED. ALL DUE MEDICATION GIVEN ORDERED. SAFETY MEASURES IMPLEMENTED. BLOOD SUAGR THIS AFTERNOON AT 1700 44. IV DEXTROSE WAS GIVEN, BLOOD SUGAR AT 77 NOW. PATIENT IS HAVING SECOND UNIT OF BLOOD TRANSFUSING. WILL ENDORSE TO SEXUAL ABUSE COUNSELLOR NURSE.
[2016-11-15] MEDS: PANTOPRAZOLE 40 MG VIAL IV SCH (20:09)
--- NOTE | 2016-11-15 20:21 | NUR ---
TELE/RN OPENING NOTES PATIENT IN BED, AWAKE, ORIENTED X3. ABLE TO COOPERTATE AND CAN FOLLOW SIMPLE COMMANDS. PATIENT SON WAS CONTACTED FOR VERBAL CONSENT PER MD ORDER PROCEDURE FOR ADALID AM PARACENTESIS, ON NPO AT LA. BLOOD TRANSFUSION ON GOING FOR SECOND BAG DUE TO LOW HGH LEVEL OF 7.4. BLOOD PRESSURE AT 1930 CHECK 109/47., PULSE 66 ON OXYGEN VIA NC AT 3 L OF 99%. R-19, TEMP 97.9. NO P[AIN VERBALIZE ATTEND TO NEEDS WILL CONTINUE CARE AND CALL LAB AFTER BLOOD TRANSFUSION DONE.
[2016-11-15] MEDS ORDERED: SECONDARY IV SET 1 EA INFUS.SET MC ONE (20:48)
[2016-11-16] VITALS (8 sets, daily range): BP systolic 110–136; BP diastolic 50–62
[2016-11-16 01:50] LABS: BASOPHILS % (AUTO) 0.1 % (0.0-2.0); EOSINOPHILS # (AUTO) 0.2 /CMM (0.0-0.7); HEMATOCRIT 31 % (33-45); HEMOGLOBIN 9.8 g/dL (11.5-14.8); LYMPHOCYTES # (AUTO) 0.5 /CMM (0.8-4.8); LYMPHOCYTES % (AUTO) 8.8 % (20.0-44.0); MEAN CORPUSCULAR HEMOGLOBIN 26 PG (26.0-33.0); MEAN CORPUSCULAR HGB CONC 31 g/dl (31.0-36.0); MEAN CORPUSCULAR VOLUME 83 fL (82-100); MONOCYTES # (AUTO) 0.3 /CMM (0.1-1.30); MONOCYTES % (AUTO) 6.4 % (2.0-12.0); NEUTROPHILS # (AUTO) 4.4 /CMM (1.8-8.9); NEUTROPHILS % (AUTO) 80.7 % (43.0-81.0); PLATELET COUNT (AUTO) 122 /CMM (150-450); RDW COEFFICIENT OF VARIATION 19.1 (11.5-15.0); RED BLOOD CELL COUNT(AUTO) 3.77 MIL/uL (4.0-5.2); WHITE BLOOD COUNT (AUTO) 5.4 K/uL (4.3-11.0)
[2016-11-16] MEDS: IPRATROPIUM NEB FS 0.5 MG/2.5 ML AMPUL.NEB NEB SCH ×4 (01:54→19:38)
[2016-11-16] MEDS: ALBUMIN 25% 25 GM in PREMIX 1 EA IV SCH (02:29)
[2016-11-16] MEDS: DEXTROSE 50%-WATER 50 ML DISP.SYRIN IV PRN (06:49)
[2016-11-16 06:58] LABS: BASOPHILS % (AUTO) 0.1 % (0.0-2.0); EOSINOPHILS # (AUTO) 0.2 /CMM (0.0-0.7); EOSINOPHILS % (AUTO) 2.9 % (0.0-6.0); HEMATOCRIT 33 % (33-45); HEMOGLOBIN 10.2 g/dL (11.5-14.8); LYMPHOCYTES # (AUTO) 0.6 /CMM (0.8-4.8); MEAN CORPUSCULAR HEMOGLOBIN 27 PG (26.0-33.0); MEAN CORPUSCULAR HGB CONC 32 g/dl (31.0-36.0); MEAN CORPUSCULAR VOLUME 85 fL (82-100); MONOCYTES # (AUTO) 0.3 /CMM (0.1-1.30); MONOCYTES % (AUTO) 6.2 % (2.0-12.0); NEUTROPHILS # (AUTO) 4.3 /CMM (1.8-8.9); NEUTROPHILS % (AUTO) 79.8 % (43.0-81.0); PLATELET COUNT (AUTO) 114 /CMM (150-450); RDW COEFFICIENT OF VARIATION 18.7 (11.5-15.0); RED BLOOD CELL COUNT(AUTO) 3.84 MIL/uL (4.0-5.2); WHITE BLOOD COUNT (AUTO) 5.4 K/uL (4.3-11.0)
--- NOTE | 2016-11-16 07:00 | NUR ---
TELE/RN NOTES PATIENT IN BED ASLWWP BUT AROUSABLE. BS CHECK AT 45, GAVE OROTOCOL OF IV DEXTROSE, RE CHECK AND BS NORMAL . ENDORSE TO AM RN RE PROCEDURE THIS AM AND ALBUMIN REPLACED LAST NIGHTS. HGB LEVEL AT 9.8 L.WILL ENDORSE TO AM RN FOR HOMER.
[2016-11-16 07:22] LABS: ALBUMIN 3.3 g/dL (3.4-5.0); BILIRUBIN,TOTAL 1.3 mg/dL (0.2-1.0); CALCIUM, SERUM 8.2 mg/dL (8.5-10.1); CREATININE 1.4 mg/dL (0.6-1.3); PHOSPHORUS 4.5 mg/dL (2.5-4.9); POTASSIUM 4.5 mmol/L (3.5-5.1); TOTAL PROTEIN, SERUM 6.2 g/dL (6.4-8.2)
[2016-11-16] MEDS: BLOOD SUGAR DIAGNOSTIC 1 EACH STRIP IN SCH ×4 (07:30→22:32)
--- NOTE | 2016-11-16 08:06 | NUR ---
RN OPEN NOTES RECEIVED REPORT FROM SENIOR CATERING SALES MANAGER NURSE. PATIENT IS IN BED, ALERT AND ORIENTED TO NAME, TIME AND PLACE. BED IS IN LOW POSITION, LOCKED AND 2 SIDE RAILS ARE UP. WILL CONTINUE TO ASSESS AND MONITOR PATIENT.
[2016-11-16] MEDS: LINAGLIPTIN 5 MG TABLET PO SCH (09:00)
[2016-11-16] MEDS: AMLODIPINE BESYLATE 5 MG TABLET PO SCH (09:00)
[2016-11-16] MEDS: REPAGLINIDE 2 MG TABLET PO SCH ×3 (09:00→16:58)
[2016-11-16] MEDS: CARVEDILOL 6.25 MG TABLET PO SCH ×2 (09:00→21:20)
[2016-11-16] MEDS: INSULIN ASPART NOVOLOG 100 UNIT/ML CARTRIDGE SQ SCH ×3 (09:00→16:57)
[2016-11-16] MEDS: ASPIRIN 81 MG TAB.CHEW PO SCH (09:00)
[2016-11-16] MEDS: FOLIC ACID 1 MG TABLET PO SCH (09:00)
[2016-11-16] MEDS: CYANOCOBALAMIN 500 MCG TABLET PO SCH (09:00)
--- NOTE | 2016-11-16 09:01 | NUR ---
INSULIN AND ORAL MEDS HELD DUE TO PATIENT NPO STATUS.
[2016-11-16] MEDS: FLUTICASONE/SALMETEROL DISKUS IH SCH ×2 (09:07→17:05)
[2016-11-16] MEDS: ENOXAPARIN SODIUM 30 MG/0.3 ML DISP.SYRIN SQ SCH (09:08)
--- NOTE | 2016-11-16 09:31 | NUR ---
RN NOTES SPOKE WITH DR HERRERA REGARDING PARACENTESIS. FOLLOWED UP WITH RADIOLOGY (LARA) WHO SAID THAT IT WILL NOT HAPPEN TODAY. CHARGE NURSE MADE AWARE AND CHANGED THE ORDER TO STAT. RADIOLOGY WILL ASSESS THE PATIENT AND LET US KNOW.
--- NOTE | 2016-11-16 11:30 | NUR ---
RN NOTES DR HERRERA INITIAL ORDER WAS TO D/C PATIENT DUE TO THE UN-ABILITY TO PERFORM PARACENTESIS TODAY. DR JUAREZ DIDN'T CLEAR THE PATIENT. DR HERRERA MADE AWARE AND ASKED TO CANCEL THE DISCHARGE ORDER. ABDOMINAL ULTRASOUND COMPLETED AND ESTIMATED OF 5L OF FLUID ARE AT THE ABDOMEN. PARACENTESIS WILL BE DONE TOMORROW 11/17/2016. HOLD LOVENOX TILL AFTER THE PROCEDURE.
--- NOTE | 2016-11-16 11:35 | NUR ---
DIET CHANGED FROM NPO TO 2 GRAM SODIUM
[2016-11-16] MEDS: FUROSEMIDE 40 MG/4 ML VIAL IV SCH ×3 (11:45→18:35)
--- NOTE | 2016-11-16 12:52 | NUR ---
RN NOTES BLOOD SUGAR BLOOD SUGAR TESTED AT 1215 WITH A LOW VALUE OF 46 AND 51, ASYMPTOMATIC. PATIENT AND FAMILY REFUSED D50 AND WANTED ORANGE JUICE INSTEAD. RECHECKED BLOOD SUGAR AFTER ORANGE JUICE AND FOOD AND IT IS 84. PATIENT IS ASYMPTOMATIC. WILL CONTINUE TO ASSESS AND MONITOR PATIENT SYMPTOMS THROUGH OUT MY SHIFT.
--- NOTE | 2016-11-16 12:56 | NUR ---
RN NOTES INSULIN AND REPAGLINIDE. HELD INSULIN AND REPAGLINIDE MILAGROS TO LOW BLOOD SUGAR OVER THE LAST TWO DAYS. PATIENT IS REFUSING D50.
[2016-11-16] MEDS ORDERED: SET RED CAP 1 EA INFUS.SET MC ONE (14:11)
[2016-11-16] MEDS ORDERED: IV NS 0.9% 250 ML IV ONE (14:11)
[2016-11-16] MEDS ORDERED: SECONDARY IV SET 1 EA INFUS.SET MC ONE (14:11)
[2016-11-16] MEDS: SOD FERRIC GLUC 125 MG in IV NS 0.9% 100 ML IV SCH (14:40)
--- NOTE | 2016-11-16 18:45 | NUR ---
RIGHT AV IV INFILTRATE. IV SITE DISCONTINUED. ARM ELEVATED AND ICE APPLIED. Addendum: 11/16/16 at 1901 by COLEMAN HAWLEY RN SPELLING CORRECTION: RIGHT AC IV
--- NOTE | 2016-11-16 18:59 | NUR ---
RN CLOSING NOTES PATIENT IS IN BED, ALERT AND ORIENTED TO NAME, TIME AND PLACE. BED IS IN LOW POSITION, LOCKED AND 2 SIDE RAILS ARE UP. NO SIGNS AND SYMPTOMS OF DISTRESS. DENIED PAIN. WILL ENDORSE TO CONSTRUCTION SUPERVISOR/CARPENTER NURSE.
--- NOTE | 2016-11-16 19:25 | NUR ---
TELE/RN OPENING NOTES PATIENT IS IN BED, ASLEEP BUT AWAKEN EASILY. NO S/S OF SOB OR DISTRESS. CALL LIGHTS WITHIN REACH. BED LOCKED POSITION. OFFERED/PROVIDE FLUIDS. WILL CONTINUE TO MONITOR AND CONTINUE TO CARE. WITH ORDER FOR DC BY MD AND PARACENTESIS ADALID GONZALEZ .
[2016-11-16] MEDS: PANTOPRAZOLE 40 MG VIAL IV SCH (19:58)
[2016-11-16] MEDS: INSULIN ASPART NOVOLOG 100 UNIT/ML CARTRIDGE SQ PRN (22:38)
[2016-11-17] VITALS: BP 133/66
[2016-11-17] MEDS: IPRATROPIUM NEB FS 0.5 MG/2.5 ML AMPUL.NEB NEB SCH ×3 (01:30→13:24)
[2016-11-17] MEDS: BLOOD SUGAR DIAGNOSTIC 1 EACH STRIP IN SCH ×2 (06:28→14:18)
[2016-11-17 06:46] LABS: BASOPHILS % (AUTO) 0.3 % (0.0-2.0); EOSINOPHILS # (AUTO) 0.2 /CMM (0.0-0.7); HEMATOCRIT 34 % (33-45); HEMOGLOBIN 10.6 g/dL (11.5-14.8); LYMPHOCYTES # (AUTO) 0.7 /CMM (0.8-4.8); LYMPHOCYTES % (AUTO) 11.6 % (20.0-44.0); MEAN CORPUSCULAR HEMOGLOBIN 27 PG (26.0-33.0); MEAN CORPUSCULAR HGB CONC 31 g/dl (31.0-36.0); MEAN CORPUSCULAR VOLUME 85 fL (82-100); MONOCYTES # (AUTO) 0.4 /CMM (0.1-1.30); MONOCYTES % (AUTO) 6.2 % (2.0-12.0); NEUTROPHILS # (AUTO) 4.6 /CMM (1.8-8.9); NEUTROPHILS % (AUTO) 78.9 % (43.0-81.0); PLATELET COUNT (AUTO) 124 /CMM (150-450); RDW COEFFICIENT OF VARIATION 18.9 (11.5-15.0); RED BLOOD CELL COUNT(AUTO) 3.98 MIL/uL (4.0-5.2); WHITE BLOOD COUNT (AUTO) 5.9 K/uL (4.3-11.0)
--- NOTE | 2016-11-17 06:49 | NUR ---
TELE/RN CLOSING NOTES PATIENT AWAKE, ALERT X2. ASSISTED TO BATHROOM W/ WALKER. KEPT SKIN INTACT AND DRY. NO S/S OF SOB OR DISTRESS. OFFERED/PROVIDED FLUIDS. BLOOD SUGAR CHECK W/ NO COVERAGE. CALL LIGHTS WITHIN REACH. WILL ENDORSE TO AM RN FOR CONTINUITY OF CARE.
[2016-11-17 06:59] LABS: ALBUMIN 3.3 g/dL (3.4-5.0); CALCIUM, SERUM 8.5 mg/dL (8.5-10.1); CREATININE 1.5 mg/dL (0.6-1.3); MAGNESIUM 1.8 mg/dL (1.8-2.4); POTASSIUM 4.5 mmol/L (3.5-5.1); TOTAL PROTEIN, SERUM 6.8 g/dL (6.4-8.2)
[2016-11-17 08:00] VITALS: BP 117/53
--- NOTE | 2016-11-17 08:00 | NUR ---
MS RN RECEIVED ON BED, AWAKE,ALERT,ORIENTED X3,NOT IN ANY FORM OF DISTRESS, RESPIRATIONS EVEN AND UNLABORED,NO SOB NOTED, LUNGS ARE CLEAR,ABDOMEN SOFT,POSITIVE BOWEL SOUNDS, DENIES PAIN AT THIS TIME.
--- NOTE | 2016-11-17 08:56 | NUR ---
MS RN WAS SEEN BY DR. LARRY Fields/ ORDERS MADE AND CARRIED OUT.
[2016-11-17 09:00] VITALS: BP 110/59
[2016-11-17] MEDS: ENOXAPARIN SODIUM 30 MG/0.3 ML DISP.SYRIN SQ SCH (09:00)
[2016-11-17] MEDS: INSULIN ASPART NOVOLOG 100 UNIT/ML CARTRIDGE SQ SCH ×2 (09:00→12:22)
[2016-11-17] MEDS: REPAGLINIDE 2 MG TABLET PO SCH ×3 (09:00→14:24)
[2016-11-17] MEDS ORDERED: BUMETANIDE INJ 8 MG in IV NS 0.9% 48 ML IV ONE (09:00)
[2016-11-17] MEDS: ASPIRIN 81 MG TAB.CHEW PO SCH (09:00)
[2016-11-17] MEDS: CARVEDILOL 6.25 MG TABLET PO SCH (09:00)
[2016-11-17] MEDS: AMLODIPINE BESYLATE 5 MG TABLET PO SCH (09:00)
--- NOTE | 2016-11-17 09:05 | NUR ---
MS RN HELD MEDS,PATIENT IS HAVING PARACENTHESIS TODAY.
[2016-11-17 10:16] LABS: *SPE A/G RATIO 0.7 (0.7-1.7); *SPE ALBUMIN 2.8 g/dL (2.9-4.4); *SPE ALPHA-1-GLOBULIN 0.3 g/dL (0.0-0.4); *SPE ALPHA-2-GLOBULIN 0.7 g/dL (0.4-1.0); *SPE BETA GLOBULIN 0.8 g/dL (0.7-1.3); *SPE M-SPIKE Not Observed g/dL (Not Observed); *SPE PROTEIN TOTAL 6.8 g/dL (6.0-8.5); *SPEGAMMA GLOBULIN 2.2 g/dL (0.4-1.8)
--- NOTE | 2016-11-17 11:00 | NUR ---
MS RN PARACENTHESIS DONE W/ 6100ML OUTPUT,TOLERATED WELL.
--- NOTE | 2016-11-17 14:00 | NUR ---
MS RN PATIENT WILL BE SCIENTIFIC GLASS BLOWER BY SON THIS AFTERNOON.
[2016-11-17] MEDS: LEVOTHYROXINE SODIUM 100 MCG TABLET PO SCH (14:17)
[2016-11-17] MEDS: FOLIC ACID 1 MG TABLET PO SCH (14:17)
[2016-11-17] MEDS: LINAGLIPTIN 5 MG TABLET PO SCH (14:17)
[2016-11-17] MEDS: FLUTICASONE/SALMETEROL DISKUS IH SCH (14:17)
[2016-11-17] MEDS: CYANOCOBALAMIN 500 MCG TABLET PO SCH (14:18)
--- NOTE | 2016-11-17 14:30 | NUR ---
MS RN WAS CARBIDE TOOL MAKER BY SON ALL NEEDS ATTENDED.
[2016-11-17] MEDS ORDERED: SECONDARY IV SET 1 EA INFUS.SET MC ONE (15:38)
== END 2016-11-17 16:02 | disposition home or self-care (01) | DRG 432 ==
LOC: ER 15:47 → TELE 18:00 → MED 11-14 08:57 → ICU 11-14 10:35 → TELE 11-15 09:11
PROVIDERS: ADMIT Family Medicine; ATTEND Family Medicine
PROC: 0W9G3ZZ Drainage of Peritoneal Cavity, Percutaneous Approach (ICD-10-PCS; principal; 2016-11-14)
PROC: 30233N1 Transfusion of Nonautologous Red Blood Cells into Peripheral Vein, Percutaneous Approach (ICD-10-PCS; 2016-11-15)
DX: K74.69 Other cirrhosis of liver (principal); J96.20 Acute and chronic respiratory failure, unspecified whether with hypoxia or hypercapnia; R18.8 Other ascites; D61.818 Other pancytopenia; I13.0 Hypertensive heart and chronic kidney disease with heart failure and stage 1 through stage 4 chronic kidney disease, or unspecified chronic kidney disease; J90 Pleural effusion, not elsewhere classified; I50.9 Heart failure, unspecified; I48.91 Unspecified atrial fibrillation; I10 Essential (primary) hypertension; E11.22 Type 2 diabetes mellitus with diabetic chronic kidney disease; E11.21 Type 2 diabetes mellitus with diabetic nephropathy; E66.01 Morbid (severe) obesity due to excess calories; I25.119 Atherosclerotic heart disease of native coronary artery with unspecified angina pectoris; G47.33 Obstructive sleep apnea (adult) (pediatric); F43.10 Post-traumatic stress disorder, unspecified; N18.9 Chronic kidney disease, unspecified; K57.30 Diverticulosis of large intestine without perforation or abscess without bleeding; Z90.49 Acquired absence of other specified parts of digestive tract; E11.319 Type 2 diabetes mellitus with unspecified diabetic retinopathy without macular edema; E78.5 Hyperlipidemia, unspecified; I27.2 Other secondary pulmonary hypertension; M81.0 Age-related osteoporosis without current pathological fracture; K21.9 Gastro-esophageal reflux disease without esophagitis; B35.1 Tinea unguium; E11.51 Type 2 diabetes mellitus with diabetic peripheral angiopathy without gangrene; Z87.440 Personal history of urinary (tract) infections; D63.8 Anemia in other chronic diseases classified elsewhere; I25.2 Old myocardial infarction; I48.0 Paroxysmal atrial fibrillation; Z95.1 Presence of aortocoronary bypass graft
CPT/HCPCS: 36415; 36600; 71010-TC; 76942-TC; 80048-TC; 80053-TC; 80061-TC; 80076-TC; 81000-TC; 82150-TC; 82962-TC; 83540-TC; 83690-TC; 83735-TC; 83880; 84100-TC; 84155; 84165; 84439-TC; 84443-TC; 84484-TC; 85025-TC; 85610-TC; 85730-TC; 86850-TC; 86921-TC; 87070-TC; 87081-TC; 88305-TC; 88312-TC; 93307-TC; 94799-TC; A4216; A4606; C9113; J1650; J1815; J1940; J2916; J3475; J3490; J7030; J7050; J8597; P9016-BL; P9047; Z7610

== ENCOUNTER 2017-11-16 13:52 | Inpatient (IN) | payer MEDICARE, MEDICAID ==
[~2017-11-16] VITALS: Ht 154.9 cm; Wt 76.9 kg
[~2017-11-16 13:52] MED LIST changes: -AMLO5TAB2 PO; +AMLO5TAB7 PO; +ASPI-1169 PO; -ASPI81TA2 PO; -CALC500T51 PO; -CLOP75TA2 PO; +DEXL60CA3 PO; -ENOX80DI9 SQ; -ERGO50003 PO; -ESOM40CA PO; -FERR-58 PO; -INSULIN ASPART NOVOLOG 100 UNIT/ML CARTRIDGE SQ SCH; +LEVO100T9 PO; -MELO-264 PO; -POTA8TAB3 PO; -RIVA10TA PO; -TRAV5DRO EACHEYE; +VORT10TA PO
--- NOTE | 2017-11-16 14:37 | NUR ---
PT SENT TO ER BY PMD C/O ABDOMINAL DISTENSION WORSE TODAY WHICH IS CAUSING VERY SLIGHT PAIN AND SOB. NAD NOTED. RESP EVEN UNLABORED. SKIN WARM DRY. IN ER BED 08.
[2017-11-16 14:38] LABS: BASOPHILS % (AUTO) 0.1 % (0.0-2.0); EOSINOPHILS % (AUTO) 3.1 % (0.0-6.0); HEMATOCRIT 28 % (33-45); HEMOGLOBIN 8.9 g/dL (11.5-14.8); LYMPHOCYTES # (AUTO) 0.6 /CMM (0.8-4.8); LYMPHOCYTES % (AUTO) 15.8 % (20.0-44.0); MEAN CORPUSCULAR HGB CONC 32 g/dl (31.0-36.0); MEAN CORPUSCULAR VOLUME 91 fL (82-100); MONOCYTES # (AUTO) 0.2 /CMM (0.1-1.30); MONOCYTES % (AUTO) 6.1 % (2.0-12.0); NEUTROPHILS # (AUTO) 3.1 /CMM (1.8-8.9); NEUTROPHILS % (AUTO) 74.9 % (43.0-81.0); PLATELET COUNT (AUTO) 118 /CMM (150-450); RDW COEFFICIENT OF VARIATION 17.6 (11.5-15.0); RED BLOOD CELL COUNT(AUTO) 3.01 MIL/uL (4.0-5.2)
[2017-11-16 14:48] LABS: CALCIUM, SERUM 8.3 mg/dL (8.5-10.1); CARBON DIOXIDE 27 mmol/L (21-32); CHLORIDE 108 mmol/L (98-107); CREATININE 1.5 mg/dL (0.6-1.3); GLUCOSE 142 mg/dL (74-106); POTASSIUM 4.6 mmol/L (3.5-5.1); SODIUM SERUM 137 mmol/L (136-145); UREA NITROGEN, BLOOD 29 mg/dL (7-18)
[2017-11-16 14:52] LABS: INR 1.03 (0.85-1.15)
[2017-11-16 14:53] LABS: ALANINE AMINOTRANSFERASE 14 U/L (12-78); ALBUMIN 2.4 g/dL (3.4-5.0); ALKALINE PHOSPHATASE 158 U/L (46-116); ASPARTATE AMINOTRANSFERASE 15 U/L (15-37); BILIRUBIN,DIRECT 0.3 mg/dL (0.0-0.2); BILIRUBIN,TOTAL 0.7 mg/dL (0.2-1.0); LIPASE 131 U/L (73-393); TOTAL PROTEIN, SERUM 7.4 g/dL (6.4-8.2)
--- NOTE | 2017-11-16 15:16 | NUR ---
PLEASE CALL FAMILY WITH ANY QUESTION DEBBI (GRANDSON) [phone] TREV (SON) [phone] *JANNA (SON) [phone]
--- NOTE | 2017-11-16 15:51 | NUR ---
PT IS ASSIGNED TO [facility]#: [id number], PT IS DIAGNOSED WITH LIVER FAILURE, AND DR HERRERA IS THE ACCEPTING MD.
--- NOTE | 2017-11-16 16:09 | NUR ---
REPORT GIVEN TO PUSHPA BURK FOR ADMISSION. RESP EVEN UNLABORED. NAD NOTED.
--- NOTE | 2017-11-16 16:10 | NUR ---
received telephone report on the patient. awaiting for patient's arrival to the unit. room 328-1 ready.
--- NOTE | 2017-11-16 16:16 | NUR ---
PT TRANSPORTED TO TELE IN STABLE CONDITION VIA ACLS PROTOCOL
--- NOTE | 2017-11-16 16:25 | NUR ---
PATIENT ARRIVED TO THE UNIT AND SAFELY TRANSFERRED TO THE BED.
--- NOTE | 2017-11-16 17:15 | NUR ---
GREENS KEEPER ADMITTING NOTE DR VARGHESE INFORMED OF PATIENT'S ARRIVAL. PATIENT IS A/O [id number] SPEAKING. AWAKE AND RESPONSIVE IN BED. BED IS LOCKED IN LOWEST POSITION, SIDE RAILS UP X2, BED ALARM IS ON. DENIES PAIN/DISCOMFORT AT THIS TIME. CHEST RISING EQUALLY BILATERALLY. SPO2 96% ON ROOM AIR. EXTERNAL MOLDER VACUUM READING VENTRICULAR PACING HR 65. CALL LIGHT WITHIN REACH. EDUCATED TO CALL FOR ASSISTANCE USING THE CALL LIGHT AND VERBALIZED UNDERSTANDING. ALL NEEDS ARE MET. WILL CONTINUE TO ASSESS/MONITOR THROUGHOUT THE SHIFT.
[2017-11-16] MEDS ORDERED: FERR325T24 PO (17:17)
[2017-11-16] MEDS ORDERED: ENAL2.5T PO (17:17)
[2017-11-16] MEDS ORDERED: SPIR25TA6 PO (17:17)
[2017-11-16] MEDS ORDERED: BUDE10.2 INH (17:17)
[2017-11-16] MEDS ORDERED: PROP20TA19 PO (17:17)
[2017-11-16] MEDS ORDERED: FOLI1TAB16 PO (17:17)
[2017-11-16] MEDS ORDERED: LINA145C PO (17:17)
[2017-11-16] MEDS ORDERED: HYDR-4076 PO (17:17)
[2017-11-16] MEDS ORDERED: FURO40TA5 PO (17:17)
[2017-11-16] MEDS ORDERED: PANT40TA2 PO (17:17)
[2017-11-16] MEDS ORDERED: ISOS20TA8 PO (17:17)
[2017-11-16] MEDS ORDERED: LEVO125T8 PO (17:17)
[2017-11-16] MEDS ORDERED: MECL-102 PO (17:17)
[2017-11-16] MEDS ORDERED: AMLO2.5T3 PO (17:17)
[2017-11-16] MEDS ORDERED: TIOT4MIS2 IH (17:20)
--- NOTE | 2017-11-16 17:30 | NUR ---
SKIN ASSESSMENT COMPLETED. PRESENTS WITH ABDOMINAL DISTENTION S/T ASCITES, RIGHT BIG TOE BRUISE, AND RIGHT BREAST FOLD RASH. DR VASQUEZ. PICTURES TAKEN AND PLACED IN THE CHART.
[2017-11-16 18:00] VITALS: BP 141/64
--- NOTE | 2017-11-16 18:00 | NUR ---
TELEPHONE ORDERS RECEIVED FROM DR VARGHESE. READ BACK AND VERIFIED.
[2017-11-16 18:02] VITALS: BP 147/64
[2017-11-16] MEDS ORDERED: MECLIZINE HCL 25 MG TABLET PO PRN (18:30)
[2017-11-16] MEDS ORDERED: ACETAMINOPHEN 325 MG TABLET PO PRN (19:00)
--- NOTE | 2017-11-16 19:30 | NUR ---
RN OPENING NOTES PT AWAKE AND ALERT RESTING IN BED. NO COMPLAINTS OF PAIN, DISTRESS OR SOB AT THIS TIME. PT HAS LEFT AC #20 INTACT AND PATENT. PT IS TELE MONITORED V PACING HR 65. SAFETY PRECAUTIONS IN PLACE. BED IN LOWEST LOCKED POSITION, X2 SIDERAILS UP, CALL LIGHT WITHIN REACH. WILL CONTINUE TO MONITOR.
--- NOTE | 2017-11-16 20:00 | NUR ---
WASHERY BOSS CLOSING NOTE DR VARGHESE AT THE BEDSIDE. PATIENT IS A/O X4 MALTESE SPEAKING. AWAKE AND RESPONSIVE IN BED. BED IS LOCKED IN LOWEST POSITION, SIDE RAILS UP X2, BED ALARM IS ON. DENIES PAIN/DISCOMFORT AT THIS TIME. CHEST RISING EQUALLY BILATERALLY. SPO2 96% ON ROOM AIR. EXTERNAL ALL AROUND GEAR MACHINE OPERATOR READING VENTRICULAR PACING HR 65. CALL LIGHT WITHIN REACH. EDUCATED TO CALL FOR ASSISTANCE USING THE CALL LIGHT AND VERBALIZED UNDERSTANDING. ALL NEEDS ARE MET. GAVE BEDSIDE SBAR REPORT TO KOBI BURK FOR HOMER.
[2017-11-16 20:03] VITALS: BP 139/49
[2017-11-16] MEDS: HYDROCORTISONE 0.5% CREAM 28.35 GM TUBE TP SCH (20:17)
[2017-11-16] MEDS: ALBUMIN 25% 25 GM in PREMIX 1 EA IV SCH (20:17)
[2017-11-16] MEDS: NYSTATIN TOP POWDER 15 GM BOTTLE TP SCH (20:17)
[2017-11-16] MEDS ORDERED: diphenhydrAMINE HCL ELIX 25 MG/10 ML UDC PO PRN (21:00)
--- NOTE | 2017-11-16 21:00 | NUR ---
RN NOTES PER DR HERRERA PT COMPLAINED OF ITCHINESS. WILL ADMINISTER BENADRYL PER DR QUINONES.
[2017-11-16] MEDS: BLOOD SUGAR DIAGNOSTIC 1 EACH STRIP IN SCH (21:11)
[2017-11-16] MEDS: CARVEDILOL 3.125 MG TABLET PO SCH (21:12)
--- NOTE | 2017-11-16 21:39 | NUR ---
RN NOTES PT REFUSED PRN BENADRYL .
[2017-11-17] VITALS: BP 133/57
[2017-11-17 04:00] VITALS: BP 129/53
[2017-11-17] MEDS: BLOOD SUGAR DIAGNOSTIC 1 EACH STRIP IN SCH ×4 (07:23→21:05)
[2017-11-17] MEDS: LEVOTHYROXINE SODIUM 125 MCG TABLET PO SCH (07:30)
[2017-11-17] MEDS: PANTOPRAZOLE 40 MG TABLET.DR PO SCH (07:30)
--- NOTE | 2017-11-17 07:42 | NUR ---
RN CLOSING NOTES PT RESTING IN BED. NO COMPLAINTS OF PAIN, DISTRESS OR SOB OVERNIGHT. PT HAS LEFT AC #20 INTACT AND PATENT. PT IS TELE MONITORED V PACING HR 65. PT AMBULATES WITH MAX ASSIST. SAFETY PRECAUTIONS IN PLACE. BED IN LOWEST LOCKED POSITION, X2 SIDERAILS UP, CALL LIGHT WITHIN REACH. WILL CONTINUE TO MONITOR.
--- NOTE | 2017-11-17 07:45 | NUR ---
RN OPENING NOTE RECEIVED PT. PT IS STABLE AND RESTING IN BED. NO S/S OF RESPIRATORY DISTRESS OR SOB. PT HAS NO C/O PAIN. PT IS SCHEDULED FOR PARACENTESIS IN AM, CONSENT SIGNED AND PLACED IN CHART. PT PLACED NPO PER MD HERRERA ORDER. IV ACCESS LOCATED ON RIGHT AC 20G, SL. SAFETY MEASURES IN PLACE, CALL LIGHT WITHIN REACH. WILL CONTINUE TO MONITOR.
[2017-11-17 08:00] VITALS: BP 135/62
[2017-11-17] MEDS: ALBUMIN 25% 25 GM in PREMIX 1 EA IV SCH (08:28)
[2017-11-17] MEDS: NYSTATIN TOP POWDER 15 GM BOTTLE TP SCH ×2 (08:43→17:32)
[2017-11-17] MEDS: HYDROCORTISONE 0.5% CREAM 28.35 GM TUBE TP SCH (08:43)
[2017-11-17] MEDS: ISOSORBIDE DINITRATE (20MG) 20 MG TABLET PO SCH ×3 (09:00→17:00)
[2017-11-17] MEDS: hydrALAZINE HCL 25 MG TABLET PO SCH ×3 (09:00→17:00)
[2017-11-17] MEDS: FUROSEMIDE 40 MG TABLET PO SCH (09:00)
[2017-11-17] MEDS: FERROUS SULFATE (325 MG) 325 MG/TAB TABLET PO SCH (09:00)
[2017-11-17] MEDS: CARVEDILOL 3.125 MG TABLET PO SCH ×2 (09:00→21:06)
[2017-11-17] MEDS: SPIRONOLACTONE 25 MG TABLET PO SCH (09:00)
[2017-11-17] MEDS: FOLIC ACID 1 MG TABLET PO SCH (09:00)
[2017-11-17] MEDS: AMLODIPINE BESYLATE 2.5 MG TABLET PO SCH ×2 (09:00→17:00)
[2017-11-17 10:22] LABS: BASOPHILS % (AUTO) 0.3 % (0.0-2.0); EOSINOPHILS % (AUTO) 3.3 % (0.0-6.0); HEMATOCRIT 26 % (33-45); HEMOGLOBIN 8.4 g/dL (11.5-14.8); LYMPHOCYTES # (AUTO) 0.5 /CMM (0.8-4.8); LYMPHOCYTES % (AUTO) 14.7 % (20.0-44.0); MEAN CORPUSCULAR HGB CONC 33 g/dl (31.0-36.0); MEAN CORPUSCULAR VOLUME 91 fL (82-100); MONOCYTES # (AUTO) 0.2 /CMM (0.1-1.30); MONOCYTES % (AUTO) 7.3 % (2.0-12.0); NEUTROPHILS # (AUTO) 2.5 /CMM (1.8-8.9); NEUTROPHILS % (AUTO) 74.4 % (43.0-81.0); PLATELET COUNT (AUTO) 100 /CMM (150-450); RDW COEFFICIENT OF VARIATION 17.7 (11.5-15.0); RED BLOOD CELL COUNT(AUTO) 2.81 MIL/uL (4.0-5.2); WHITE BLOOD COUNT (AUTO) 3.4 K/uL (4.3-11.0)
[2017-11-17 10:48] LABS: INR 1.05 (0.87-1.13)
--- NOTE | 2017-11-17 12:15 | NUR ---
DISCHARGE NOTE PT DISCHARGED FROM HOSPITAL AMA. WAS WARNED ABOUT POTENTIAL RISKS AND BENEFITS OF STAYING FOR ADMISSION, HOWEVER PT INSISTS ON D/C. D/C AND AMA PAPERWORK SIGNED, COPIED AND PLACED IN CHART. IV ACCESS AND ID BAND REMOVED. PT REFUSED ALL PHOTOS. PT LEFT HOSPITAL IN PRIVATE VEHICLE WITH FAMILY. Addendum: 11/17/17 at 1635 by FANTA JOEL EDIT: WRONG NOTE FOR WRONG PT.
--- NOTE | 2017-11-17 15:00 | NUR ---
RN NOTES PARACENTESIS PERFORMED. 10L OF OUTPUT RECOVERED. OUTPUT SENT TO LAB FOR BODY FLUID ANALYSIS.
[2017-11-17 16:00] VITALS: BP 141/53
--- NOTE | 2017-11-17 18:41 | NUR ---
RN CLOSING NOTES PT IS IN BED AWAKE. NO S/S OF RESPIRATORY DISTRESS OR SOB. NO C/O PAIN AT THIS TIME. PARACENTESIS PERFORMED TODAY 11/17/17 WITH 10L OUTPUT, FLUID SPECIMEN COLLECTED AND SET TO LAB FOR BODY FLUID ANALYSIS. ALL PT NEEDS ANTICIPATED AND MET, SAFETY MEASURES IN PLACE, CALL LIGHT IN REACH. WILL ENDORSE TO REFUSE LABORER FOR HOMER.
--- NOTE | 2017-11-17 19:25 | NUR ---
RN OPENING NOTES PT IS AWAKE AND RESTING IN BED. NO COMPLAINTS OF SOB, PAIN OR DISTRESS AT THIS TIME. PT HAS LEFT CHEST WALL PACEMAKER, TELE MONITORED V PACING AT A RATE OF 65. PT HAD A PARACENTESIS PERFORMED TODAY WITH 10L OUTPUT. PT HAS A LEFT AC #20, INTACT AND PATENT. SAFETY PRECAUTIONS IN PLACE, BED IN LOWEST LOCKED POSITION, X2 SIDE RAILS UP, CALL LIGHT WITHIN REACH. WILL CONTINUE TO MONITOR.
[2017-11-17 20:52] VITALS: BP 123/59
[2017-11-18 00:01] VITALS: BP 125/61
[2017-11-18 04:00] VITALS: BP 102/52
[2017-11-18 06:44] LABS: BASOPHILS % (AUTO) 0.2 % (0.0-2.0); EOSINOPHILS % (AUTO) 2.4 % (0.0-6.0); HEMATOCRIT 26 % (33-45); HEMOGLOBIN 8.6 g/dL (11.5-14.8); LYMPHOCYTES # (AUTO) 0.5 /CMM (0.8-4.8); MEAN CORPUSCULAR HGB CONC 33 g/dl (31.0-36.0); MEAN CORPUSCULAR VOLUME 90 fL (82-100); MONOCYTES # (AUTO) 0.2 /CMM (0.1-1.30); MONOCYTES % (AUTO) 7.1 % (2.0-12.0); NEUTROPHILS # (AUTO) 2.3 /CMM (1.8-8.9); NEUTROPHILS % (AUTO) 73.3 % (43.0-81.0); PLATELET COUNT (AUTO) 103 /CMM (150-450); RDW COEFFICIENT OF VARIATION 18.6 (11.5-15.0); WHITE BLOOD COUNT (AUTO) 3.1 K/uL (4.3-11.0)
--- NOTE | 2017-11-18 06:54 | NUR ---
RN CLOSING NOTES PT IS AWAKE AND RESTING IN BED. PT CHANGED ROOMS OVERNIGHT. NO COMPLAINTS OF SOB, PAIN OR DISTRESS OVERNIGHT. PT HAS LEFT CHEST WALL PACEMAKER, TELE MONITORED V PACING AT A RATE OF 65. PT HAD A PARACENTESIS PERFORMED YESTERDAY WITH 10L OUTPUT. VITAL SIGNS STABLE. PT HAS A LEFT AC #20, INTACT AND PATENT. SAFETY PRECAUTIONS IN PLACE, BED IN LOWEST LOCKED POSITION, X2 SIDE RAILS UP, CALL LIGHT WITHIN REACH. WILL ENDORSE TO DAY SHIFT FOR CONTINUITY OF CARE.
[2017-11-18] MEDS: BLOOD SUGAR DIAGNOSTIC 1 EACH STRIP IN SCH (07:02)
[2017-11-18 07:09] LABS: ALANINE AMINOTRANSFERASE 13 U/L (12-78); ALBUMIN 2.3 g/dL (3.4-5.0); ALKALINE PHOSPHATASE 135 U/L (46-116); ASPARTATE AMINOTRANSFERASE 13 U/L (15-37); BILIRUBIN,TOTAL 0.8 mg/dL (0.2-1.0); CALCIUM, SERUM 8.7 mg/dL (8.5-10.1); CARBON DIOXIDE 23 mmol/L (21-32); CHLORIDE 111 mmol/L (98-107); CREATININE 1.1 mg/dL (0.6-1.3); GLUCOSE 131 mg/dL (74-106); MAGNESIUM 2.6 mg/dL (1.8-2.4); POTASSIUM 4.8 mmol/L (3.5-5.1); SODIUM SERUM 141 mmol/L (136-145); TOTAL PROTEIN, SERUM 6.3 g/dL (6.4-8.2); UREA NITROGEN, BLOOD 26 mg/dL (7-18)
--- NOTE | 2017-11-18 07:10 | NUR ---
REPORT RECEIVED AT THE BEDSIDE. PATIENT IS SLEEPING, NO SOB OR DISTRESS NOTED AT THIS TIME. PATIENT DOES NOT APPEAR TO BE IN PAIN, NO FACIAL GRIMACE NOTED. HEART RATE VPACING AT 65. BED IN A LOW POSITION, CALL LIGHT WITHIN PATIENT REACH. WILL MONITOR.
[2017-11-18 07:13] LABS: THYROID STIMULATING HORMONE 3.443 uIU/mL (0.358-3.74)
[2017-11-18] MEDS: PANTOPRAZOLE 40 MG TABLET.DR PO SCH (07:30)
[2017-11-18] MEDS: LEVOTHYROXINE SODIUM 125 MCG TABLET PO SCH (07:30)
[2017-11-18 07:33] LABS: IRON, SERUM 35 ug/dl (50-175); TOTAL IRON BINDING CAPACITY 106 ug/dl (250-450)
[2017-11-18] MEDS ORDERED: NYST15PO4 TP (08:40)
[2017-11-18] MEDS ORDERED: PANT40TA2 PO (08:40)
[2017-11-18] MEDS ORDERED: SPIR25TA PO (08:40)
[2017-11-18] MEDS ORDERED: FERR325T28 PO (08:40)
[2017-11-18] MEDS ORDERED: FURO40TA5 PO (08:40)
[2017-11-18] MEDS ORDERED: HYDR28.3 TP (08:40)
[2017-11-18] MEDS ORDERED: HYDR-4076 PO (08:40)
[2017-11-18] MEDS ORDERED: Blood Sugar Diagnostic IN (08:40)
[2017-11-18] MEDS ORDERED: ISOS20TA8 PO (08:40)
[2017-11-18] MEDS ORDERED: FOLI1TAB16 PO (08:40)
[2017-11-18] MEDS ORDERED: LEVO125T PO (08:40)
[2017-11-18] MEDS ORDERED: MECL-102 PO (08:40)
[2017-11-18] MEDS ORDERED: CARV3.122 PO (08:40)
[2017-11-18] MEDS: hydrALAZINE HCL 25 MG TABLET PO SCH (08:45)
[2017-11-18] MEDS: SPIRONOLACTONE 25 MG TABLET PO SCH (08:45)
[2017-11-18 08:46] VITALS: BP 112/65
[2017-11-18] MEDS: FUROSEMIDE 40 MG TABLET PO SCH (08:46)
[2017-11-18] MEDS: AMLODIPINE BESYLATE 2.5 MG TABLET PO SCH (08:46)
[2017-11-18] MEDS: CARVEDILOL 3.125 MG TABLET PO SCH (08:46)
[2017-11-18] MEDS: ISOSORBIDE DINITRATE (20MG) 20 MG TABLET PO SCH (08:46)
[2017-11-18] MEDS: FERROUS SULFATE (325 MG) 325 MG/TAB TABLET PO SCH (08:46)
[2017-11-18] MEDS: FOLIC ACID 1 MG TABLET PO SCH (08:46)
[2017-11-18] MEDS: HYDROCORTISONE 0.5% CREAM 28.35 GM TUBE TP SCH (08:46)
[2017-11-18] MEDS: NYSTATIN TOP POWDER 15 GM BOTTLE TP SCH (08:46)
--- NOTE | 2017-11-18 08:47 | NUR ---
PT REFUSING ALL MEDS. WITH HELP OF BHARGAVI ALEX, TRANSLATING IN [place], PT STATES THE DOCTOR TOLD HER SHE IS GOING HOME AND WILL TAKE THEM AT HOME. INFORMED THE PT THAT SHE MAY NOT BE ABLE TO LEAVE RIGHT AWAY ORDERS NEED TO BE PLACED AND PAPERWORK ASSEMBLED. PT STATES UNDERSTANDING AND STILL REFUSING.
--- NOTE | 2017-11-18 11:25 | NUR ---
DISCHARGE INSTRUCTIONS GIVEN TO PATIENT AND GRANDSON AND ABLE TO UNDERSTAND. NO SOB OR DISTRESS NOTED AT THIS TIME. PATIENT DENIES PAIN. PATIENT REFUSED DISCHARGE PHOTOS OF SKIN. STATES IT IS TOO EMBARRASSING. PATIENT DISCHARGED TO HOME WITH GRANDSON. HOME HEALTH IS SET UP TO FOLLOW. CALLED IN MEDICATIONS TO HOME PHARMACY.
== END 2017-11-18 11:25 | disposition home health service (06) | DRG 432 ==
LOC: ER 13:53 → TELE 16:12 → MERGE 16:12 → TELE 11-18 01:28
PROVIDERS: ADMIT Family Medicine; ATTEND Family Medicine
PROC: 0W9G3ZX Drainage of Peritoneal Cavity, Percutaneous Approach, Diagnostic (ICD-10-PCS; principal; 2017-11-17)
DX: K74.60 Unspecified cirrhosis of liver (principal); K65.2 Spontaneous bacterial peritonitis; I50.43 Acute on chronic combined systolic (congestive) and diastolic (congestive) heart failure; E11.22 Type 2 diabetes mellitus with diabetic chronic kidney disease; I11.0 Hypertensive heart disease with heart failure; E11.40 Type 2 diabetes mellitus with diabetic neuropathy, unspecified; I27.20 Pulmonary hypertension, unspecified; E11.319 Type 2 diabetes mellitus with unspecified diabetic retinopathy without macular edema; E83.51 Hypocalcemia; E11.649 Type 2 diabetes mellitus with hypoglycemia without coma; R18.8 Other ascites; I50.40 Unspecified combined systolic (congestive) and diastolic (congestive) heart failure; I13.0 Hypertensive heart and chronic kidney disease with heart failure and stage 1 through stage 4 chronic kidney disease, or unspecified chronic kidney disease; K72.90 Hepatic failure, unspecified without coma; N18.9 Chronic kidney disease, unspecified; K27.9 Peptic ulcer, site unspecified, unspecified as acute or chronic, without hemorrhage or perforation; Z95.1 Presence of aortocoronary bypass graft; Z95.0 Presence of cardiac pacemaker; Z90.49 Acquired absence of other specified parts of digestive tract; Z87.11 Personal history of peptic ulcer disease; Z86.73 Personal history of transient ischemic attack (TIA), and cerebral infarction without residual deficits; Z83.3 Family history of diabetes mellitus; Z82.49 Family history of ischemic heart disease and other diseases of the circulatory system; Z79.51 Long term (current) use of inhaled steroids; I25.119 Atherosclerotic heart disease of native coronary artery with unspecified angina pectoris; H40.9 Unspecified glaucoma; I25.2 Old myocardial infarction; M81.0 Age-related osteoporosis without current pathological fracture; D63.8 Anemia in other chronic diseases classified elsewhere; R21 Rash and other nonspecific skin eruption; E78.5 Hyperlipidemia, unspecified; E66.9 Obesity, unspecified; E03.9 Hypothyroidism, unspecified; M62.50 Muscle wasting and atrophy, not elsewhere classified, unspecified site; R41.3 Other amnesia
CPT/HCPCS: 36415; 71045-TC; 76942-TC; 80048-TC; 80053-TC; 80076-TC; 82040-TC; 82105; 82962-TC; 83540-TC; 83690-TC; 83735-TC; 84443-TC; 85025-TC; 85610-TC; 85730-TC; 87070-TC; 87081-TC; 88305-TC; 88312-TC; 89051-TC; A4216; A4606; P9047; Q0163; Z7610

== ENCOUNTER 2017-12-19 13:26 | Inpatient (IN) | payer MEDICARE, MEDICAID ==
[~2017-12-19] VITALS: Ht 152.4 cm; Wt 84.4 kg
[~2017-12-19 13:26] MED LIST changes: +AMLO2.5T3 PO; +BUDE10.2 INH; +Blood Sugar Diagnostic IN; +CARV3.122 PO; +ENAL2.5T PO; +FERR325T24 PO; +FERR325T28 PO; +HYDR-4076 PO; +HYDR28.3 TP; +ISOS20TA8 PO; +LEVO125T PO; +LEVO125T8 PO; +LINA145C PO; +NYST15PO4 TP; +PANT40TA2 PO; +PROP20TA19 PO; +SPIR25TA PO; +SPIR25TA6 PO; +TIOT4MIS2 IH
[2017-12-19 14:43] LABS: BASOPHILS % (AUTO) 0.3 % (0.0-2.0); EOSINOPHILS % (AUTO) 3.1 % (0.0-6.0); HEMATOCRIT 25 % (33-45); HEMOGLOBIN 8.6 g/dL (11.5-14.8); LYMPHOCYTES # (AUTO) 0.5 /CMM (0.8-4.8); LYMPHOCYTES % (AUTO) 14.6 % (20.0-44.0); MEAN CORPUSCULAR HGB CONC 35 g/dl (31.0-36.0); MEAN CORPUSCULAR VOLUME 91 fL (82-100); MONOCYTES # (AUTO) 0.2 /CMM (0.1-1.30); MONOCYTES % (AUTO) 6.4 % (2.0-12.0); NEUTROPHILS # (AUTO) 2.9 /CMM (1.8-8.9); NEUTROPHILS % (AUTO) 75.6 % (43.0-81.0); PLATELET COUNT (AUTO) 123 /CMM (150-450); RDW COEFFICIENT OF VARIATION 15.8 (11.5-15.0); RED BLOOD CELL COUNT(AUTO) 2.72 MIL/uL (4.0-5.2); WHITE BLOOD COUNT (AUTO) 3.7 K/uL (4.3-11.0)
[2017-12-19 14:48] LABS: CALCIUM, SERUM 8.7 mg/dL (8.5-10.1); CARBON DIOXIDE 20 mmol/L (21-32); CHLORIDE 110 mmol/L (98-107); CREATININE 1.3 mg/dL (0.6-1.3); GLUCOSE 114 mg/dL (74-106); POTASSIUM 5.6 mmol/L (3.5-5.1); SODIUM SERUM 136 mmol/L (136-145); UREA NITROGEN, BLOOD 32 mg/dL (7-18)
[2017-12-19 14:49] LABS: INR 1.02 (0.85-1.15)
[2017-12-19 14:54] LABS: ALANINE AMINOTRANSFERASE 11 U/L (12-78); ALBUMIN 2.5 g/dL (3.4-5.0); ALKALINE PHOSPHATASE 178 U/L (46-116); ASPARTATE AMINOTRANSFERASE 13 U/L (15-37); BILIRUBIN,DIRECT 0.3 mg/dL (0.0-0.2); BILIRUBIN,TOTAL 0.6 mg/dL (0.2-1.0); LIPASE 199 U/L (73-393); TOTAL PROTEIN, SERUM 7.3 g/dL (6.4-8.2)
[2017-12-19 15:08] LABS: APPEARANCE,URINE Clear (CLEAR); BILIRUBIN,URINE Negative (NEGATIVE); BLOOD, URINE Trace-lysed Ery/uL (NEGATIVE); COLOR,URINE Yellow (YELLOW); KETONES,URINE Negative (NEGATIVE); LEUKOCYTE ESTERASE ,URINE Small (NEGATIVE); NITRITE, URINE Negative (NEGATIVE); PH,URINE 5.5 (5.0-8.0); PROTEIN,URINE 100 mg/dl (NEGATIVE); UGLUCOSE Negative (NEGATIVE); UROBILINOGEN,URINE 0.2 EU/dL (0.2)
[2017-12-19 15:11] LABS: BACTERIA,URINE 1+ /HPF (None Seen); SQUAMOUS EPITHELIAL CELL,UR Few /HPF (None Seen)
[2017-12-19] MEDS ORDERED: ALBUMIN 25% 12.5 GM/50 ML BOTTLE IV ONE ×2 (15:30)
[2017-12-19] MEDS ORDERED: ALBUMIN 25% 25 GM in PREMIX 1 EA IV ONE (16:00)
[2017-12-19 16:05] LABS: BAND % (MANUAL) 2 % (0.0-5.0); EOSINOPHILS % (MANUAL) 1 % (0-4); LYMPHOCYTES % (MANUAL) 16 % (16-48); MONOCYTES % (MANUAL) 1 % (0-11.0); NEUTROPHILS % (MANUAL) 80 (42-76)
[2017-12-19 19:30] VITALS: BP 140/62
[2017-12-19 20:00] VITALS: BP 140/62
[2017-12-19] MEDS ORDERED: DEXTROSE 50%-WATER 50 ML DISP.SYRIN IV PRN (20:30)
[2017-12-19] MEDS ORDERED: ALBUMIN 25% 100 ML IV ONE (21:27)
[2017-12-19] MEDS ORDERED: SOD FERRIC GLUC 62.5 MG/5 ML AMPUL IV ONE (21:28)
[2017-12-19] MEDS: PROPRANOLOL HCL 10 MG TABLET PO SCH (21:44)
[2017-12-19] MEDS: hydrALAZINE HCL 25 MG TABLET PO SCH (21:44)
[2017-12-19] MEDS: ISOSORBIDE DINITRATE (20MG) 20 MG TABLET PO SCH (21:45)
[2017-12-19] MEDS ORDERED: BLOOD SUGAR DIAGNOSTIC 1 EACH STRIP VI SCH (22:00)
[2017-12-19] MEDS: ALBUMIN 25% 25 GM in PREMIX 1 EA IV SCH (22:14)
[2017-12-19] MEDS: BLOOD SUGAR DIAGNOSTIC 1 EACH STRIP IN SCH (22:51)
[2017-12-19] MEDS ORDERED: SOD FERRIC GLUC 125 MG in IV NS 0.9% 100 ML IV SCH (23:00)
[2017-12-20] VITALS: BP 122/52
[2017-12-20 04:00] VITALS: BP 120/61
[2017-12-20] MEDS ORDERED: ALBUMIN 25% 100 ML IV ONE (04:44)
[2017-12-20] MEDS: ALBUMIN 25% 25 GM in PREMIX 1 EA IV SCH ×3 (04:52→21:01)
[2017-12-20] MEDS: hydrALAZINE HCL 25 MG TABLET PO SCH ×2 (05:40→11:55)
[2017-12-20] MEDS: PROPRANOLOL HCL 10 MG TABLET PO SCH ×3 (05:40→20:23)
[2017-12-20] MEDS: ISOSORBIDE DINITRATE (20MG) 20 MG TABLET PO SCH ×3 (05:41→21:05)
[2017-12-20] MEDS: BLOOD SUGAR DIAGNOSTIC 1 EACH STRIP IN SCH ×4 (07:32→21:25)
[2017-12-20 08:00] VITALS: BP 93/43
[2017-12-20] MEDS ORDERED: MISCELLANEOUS MED 1 EA EA XX ONE (09:00)
[2017-12-20] MEDS ORDERED: NYSTATIN TOP POWDER 15 GM BOTTLE TP SCH (09:00)
[2017-12-20] MEDS ORDERED: CARVEDILOL 3.125 MG TABLET PO SCH (09:00)
[2017-12-20] MEDS ORDERED: PROPRANOLOL HCL 10 MG TABLET PO SCH (09:00)
[2017-12-20] MEDS ORDERED: hydrALAZINE HCL 25 MG TABLET PO SCH (09:00)
[2017-12-20] MEDS: ENALAPRIL MALEATE (5 MG) 5 MG TABLET PO SCH ×2 (09:00→17:15)
[2017-12-20] MEDS ORDERED: ISOSORBIDE DINITRATE (20MG) 20 MG TABLET PO SCH (09:00)
[2017-12-20] MEDS ORDERED: HYDROCORTISONE 0.5% CREAM 28.35 GM TUBE TP SCH (09:00)
[2017-12-20] MEDS ORDERED: FERROUS SULFATE (325 MG) 325 MG/TAB TABLET PO SCH (09:00)
[2017-12-20] MEDS ORDERED: FUROSEMIDE 40 MG TABLET PO SCH (09:00)
[2017-12-20] MEDS ORDERED: MECLIZINE HCL 25 MG TABLET PO PRN (09:00)
[2017-12-20] MEDS ORDERED: BLOOD SUGAR DIAGNOSTIC 1 EACH STRIP IN ONE (09:00)
[2017-12-20] MEDS: FOLIC ACID 1 MG TABLET PO SCH (09:41)
[2017-12-20] MEDS: SPIRONOLACTONE 25 MG TABLET PO SCH (09:41)
[2017-12-20] MEDS: FUROSEMIDE 20 MG TABLET PO SCH (09:41)
[2017-12-20] MEDS: LEVOTHYROXINE SODIUM 125 MCG TABLET PO SCH (09:41)
[2017-12-20] MEDS: AMLODIPINE BESYLATE 2.5 MG TABLET PO SCH ×2 (09:49→17:15)
[2017-12-20] MEDS: INSULIN REGULAR, HUMAN 100 UNIT/ML 3 ML VIAL SQ PRN ×2 (11:41→17:29)
[2017-12-20 12:00] VITALS: BP 112/54
[2017-12-20] MEDS: SOD FERRIC GLUC 125 MG in IV NS 0.9% 100 ML IV SCH (13:49)
[2017-12-20] MEDS: IPRATROPIUM NEB FS 0.5 MG/2.5 ML AMPUL.NEB NEB SCH ×2 (14:04→19:30)
[2017-12-20 16:00] VITALS: BP 117/58
[2017-12-20] MEDS ORDERED: SYMBICORT 160/4.5 INH SCH (17:00)
[2017-12-20] MEDS ORDERED: SODIUM POLYSTYRENE SULFONATE 15 G/60 ML BOTTLE PO ONE (18:00)
[2017-12-20 20:01] VITALS: BP 120/55
[2017-12-20] MEDS: *INSULIN REGULAR(HUMULIN R)HUM 100 UNIT/ML VIAL SQ PRN (21:39)
[2017-12-21] MEDS: IPRATROPIUM NEB FS 0.5 MG/2.5 ML AMPUL.NEB NEB SCH ×4 (01:30→19:15)
[2017-12-21 05:00] VITALS: BP 108/41
[2017-12-21] MEDS: PROPRANOLOL HCL 10 MG TABLET PO SCH ×3 (05:00→23:12)
[2017-12-21] MEDS: ISOSORBIDE DINITRATE (20MG) 20 MG TABLET PO SCH ×3 (05:00→23:12)
[2017-12-21] MEDS: ALBUMIN 25% 25 GM in PREMIX 1 EA IV SCH ×3 (05:12→21:05)
[2017-12-21] MEDS: BLOOD SUGAR DIAGNOSTIC 1 EACH STRIP IN SCH ×4 (06:07→21:05)
[2017-12-21 06:45] LABS: BASOPHILS % (AUTO) 0.2 % (0.0-2.0); EOSINOPHILS % (AUTO) 3.2 % (0.0-6.0); HEMATOCRIT 27 % (33-45); HEMOGLOBIN 8.5 g/dL (11.5-14.8); LYMPHOCYTES # (AUTO) 0.5 /CMM (0.8-4.8); LYMPHOCYTES % (AUTO) 12.5 % (20.0-44.0); MEAN CORPUSCULAR HGB CONC 32 g/dl (31.0-36.0); MEAN CORPUSCULAR VOLUME 96 fL (82-100); MONOCYTES # (AUTO) 0.3 /CMM (0.1-1.30); MONOCYTES % (AUTO) 7.3 % (2.0-12.0); NEUTROPHILS # (AUTO) 3.1 /CMM (1.8-8.9); NEUTROPHILS % (AUTO) 76.8 % (43.0-81.0); PLATELET COUNT (AUTO) 118 /CMM (150-450); RDW COEFFICIENT OF VARIATION 16.9 (11.5-15.0); RED BLOOD CELL COUNT(AUTO) 2.76 MIL/uL (4.0-5.2)
[2017-12-21 06:48] LABS: ALANINE AMINOTRANSFERASE 13 U/L (12-78); ALBUMIN 3.3 g/dL (3.4-5.0); ALKALINE PHOSPHATASE 126 U/L (46-116); ASPARTATE AMINOTRANSFERASE 10 U/L (15-37); BILIRUBIN,TOTAL 0.6 mg/dL (0.2-1.0); CALCIUM, SERUM 8.1 mg/dL (8.5-10.1); CARBON DIOXIDE 21 mmol/L (21-32); CHLORIDE 112 mmol/L (98-107); CREATININE 1.4 mg/dL (0.6-1.3); GLUCOSE 101 mg/dL (74-106); POTASSIUM 6.1 mmol/L (3.5-5.1); SODIUM SERUM 140 mmol/L (136-145); TOTAL PROTEIN, SERUM 6.7 g/dL (6.4-8.2); UREA NITROGEN, BLOOD 29 mg/dL (7-18)
[2017-12-21 08:00] VITALS: BP 114/71
[2017-12-21] MEDS ORDERED: SODIUM POLYSTYRENE SULFONATE 15 G/60 ML BOTTLE PO ONE ×3 (08:00→20:00)
[2017-12-21] MEDS: PANTOPRAZOLE 40 MG TABLET.DR PO SCH (08:18)
[2017-12-21] MEDS: LEVOTHYROXINE SODIUM 125 MCG TABLET PO SCH (08:18)
[2017-12-21] MEDS ORDERED: LIDOCAINE HCL/PF 1% 30 ML SDV ONE (08:36)
[2017-12-21] MEDS: AMLODIPINE BESYLATE 2.5 MG TABLET PO SCH ×2 (09:00→17:00)
[2017-12-21] MEDS: ENALAPRIL MALEATE (5 MG) 5 MG TABLET PO SCH (09:00)
[2017-12-21] MEDS ORDERED: LINZESS 145MG PO SCH (09:00)
[2017-12-21] MEDS: FUROSEMIDE 20 MG TABLET PO SCH (10:20)
[2017-12-21] MEDS: FOLIC ACID 1 MG TABLET PO SCH (10:20)
[2017-12-21] MEDS: SPIRONOLACTONE 25 MG TABLET PO SCH (10:20)
[2017-12-21 12:00] VITALS: BP 98/50
[2017-12-21] MEDS ORDERED: FUROSEMIDE 20 MG/2 ML VIAL IV ONE (12:00)
[2017-12-21] MEDS ORDERED: FUROSEMIDE 40 MG/4 ML VIAL IV ONE (14:30)
[2017-12-21 14:40] VITALS: BP 142/66
[2017-12-21 16:00] VITALS: BP 130/63
[2017-12-21] MEDS: SOD FERRIC GLUC 125 MG in IV NS 0.9% 100 ML IV SCH (16:35)
[2017-12-21 17:27] LABS: APPEARANCE,URINE CLEAR (CLEAR); BILIRUBIN,URINE NEGATIVE (NEGATIVE); BLOOD, URINE TRACE-INTA Ery/uL (NEGATIVE); COLOR,URINE YELLOW (YELLOW); KETONES,URINE NEGATIVE (NEGATIVE); LEUKOCYTE ESTERASE ,URINE NEGATIVE (NEGATIVE); NITRITE, URINE NEGATIVE (NEGATIVE); PH,URINE 5.5 (5.0-8.0); PROTEIN,URINE 1+ mg/dl (NEGATIVE); UGLUCOSE NEGATIVE (NEGATIVE); UROBILINOGEN,URINE 0.2 EU/dL (0.2)
[2017-12-21 17:32] LABS: ALANINE AMINOTRANSFERASE 13 U/L (12-78); ALBUMIN 3.5 g/dL (3.4-5.0); ALKALINE PHOSPHATASE 127 U/L (46-116); ASPARTATE AMINOTRANSFERASE 8 U/L (15-37); BILIRUBIN,TOTAL 0.8 mg/dL (0.2-1.0); CALCIUM, SERUM 8.5 mg/dL (8.5-10.1); CARBON DIOXIDE 21 mmol/L (21-32); CHLORIDE 111 mmol/L (98-107); CREATININE 1.4 mg/dL (0.6-1.3); GLUCOSE 122 mg/dL (74-106); POTASSIUM 5.8 mmol/L (3.5-5.1); SODIUM SERUM 140 mmol/L (136-145); TOTAL PROTEIN, SERUM 6.8 g/dL (6.4-8.2); UREA NITROGEN, BLOOD 28 mg/dL (7-18)
[2017-12-21 17:42] LABS: CREATININE, URINE 56.4 MG/DL (30.0-125.0); URINE TOTAL PROTEIN 77.4 mg/dL (0-11.9)
[2017-12-21 17:49] LABS: BACTERIA,URINE FEW /HPF (None Seen); SQUAMOUS EPITHELIAL CELL,UR Few /HPF (None Seen); WBC,URINE 0-2 /HPF (0-3)
[2017-12-21 18:02] LABS: EOSINOPHIL,URINE None Seen
[2017-12-21] MEDS: *INSULIN REGULAR(HUMULIN R)HUM 100 UNIT/ML VIAL SQ PRN (22:05)
[2017-12-22] MEDS: IPRATROPIUM NEB FS 0.5 MG/2.5 ML AMPUL.NEB NEB SCH ×2 (01:30→06:57)
[2017-12-22] MEDS: ALBUMIN 25% 25 GM in PREMIX 1 EA IV SCH (05:21)
[2017-12-22] MEDS: PROPRANOLOL HCL 10 MG TABLET PO SCH (05:30)
[2017-12-22] MEDS: ISOSORBIDE DINITRATE (20MG) 20 MG TABLET PO SCH (05:30)
[2017-12-22] MEDS: INSULIN REGULAR, HUMAN 100 UNIT/ML 3 ML VIAL SQ PRN (06:20)
[2017-12-22] MEDS: BLOOD SUGAR DIAGNOSTIC 1 EACH STRIP IN SCH ×2 (06:21→12:03)
[2017-12-22 07:24] LABS: BASOPHILS % (AUTO) 0.3 % (0.0-2.0); EOSINOPHILS % (AUTO) 3.9 % (0.0-6.0); HEMATOCRIT 26 % (33-45); HEMOGLOBIN 8.3 g/dL (11.5-14.8); LYMPHOCYTES # (AUTO) 0.5 /CMM (0.8-4.8); LYMPHOCYTES % (AUTO) 14.2 % (20.0-44.0); MEAN CORPUSCULAR HGB CONC 33 g/dl (31.0-36.0); MEAN CORPUSCULAR VOLUME 96 fL (82-100); MONOCYTES # (AUTO) 0.3 /CMM (0.1-1.30); MONOCYTES % (AUTO) 7.9 % (2.0-12.0); NEUTROPHILS # (AUTO) 2.4 /CMM (1.8-8.9); NEUTROPHILS % (AUTO) 73.7 % (43.0-81.0); PLATELET COUNT (AUTO) 106 /CMM (150-450); RDW COEFFICIENT OF VARIATION 16.5 (11.5-15.0); RED BLOOD CELL COUNT(AUTO) 2.66 MIL/uL (4.0-5.2); WHITE BLOOD COUNT (AUTO) 3.2 K/uL (4.3-11.0)
[2017-12-22 07:36] LABS: ALANINE AMINOTRANSFERASE 11 U/L (12-78); ALBUMIN 3.2 g/dL (3.4-5.0); ALKALINE PHOSPHATASE 104 U/L (46-116); ASPARTATE AMINOTRANSFERASE 8 U/L (15-37); BILIRUBIN,TOTAL 0.7 mg/dL (0.2-1.0); CALCIUM, SERUM 8.3 mg/dL (8.5-10.1); CARBON DIOXIDE 20 mmol/L (21-32); CHLORIDE 112 mmol/L (98-107); CREATININE 1.4 mg/dL (0.6-1.3); GLUCOSE 89 mg/dL (74-106); MAGNESIUM 1.6 mg/dL (1.8-2.4); POTASSIUM 5.5 mmol/L (3.5-5.1); SODIUM SERUM 140 mmol/L (136-145); TOTAL PROTEIN, SERUM 6.2 g/dL (6.4-8.2); UREA NITROGEN, BLOOD 29 mg/dL (7-18)
[2017-12-22 07:53] LABS: CREATINE KINASE, TOTAL 21 U/L (26-192)
[2017-12-22 08:00] VITALS: BP 100/47
[2017-12-22] MEDS: LEVOTHYROXINE SODIUM 125 MCG TABLET PO SCH (08:16)
[2017-12-22] MEDS: PANTOPRAZOLE 40 MG TABLET.DR PO SCH (08:16)
[2017-12-22] MEDS ORDERED: FOLI1TAB16 PO (08:52)
[2017-12-22] MEDS ORDERED: LEVO125T PO (08:52)
[2017-12-22] MEDS ORDERED: FURO20TA4 PO (08:52)
[2017-12-22] MEDS ORDERED: AMLO2.5T3 PO (08:52)
[2017-12-22] MEDS ORDERED: CARV3.122 PO (08:52)
[2017-12-22] MEDS ORDERED: PANT40TA2 PO (08:52)
[2017-12-22] MEDS ORDERED: ISOS20TA8 PO (08:52)
[2017-12-22] MEDS ORDERED: PROP10TA68 PO (08:52)
[2017-12-22] MEDS: AMLODIPINE BESYLATE 2.5 MG TABLET PO SCH (09:00)
[2017-12-22] MEDS: FOLIC ACID 1 MG TABLET PO SCH (09:02)
[2017-12-22] MEDS ORDERED: MAGNESIUM OXIDE 400 MG TABLET PO ONE (11:30)
[2017-12-22] MEDS: FUROSEMIDE 20 MG TABLET PO SCH (11:39)
[2017-12-22 11:40] VITALS: BP 132/66
[2017-12-22 12:30] VITALS: BP 137/62
== END 2017-12-22 12:52 | disposition home health service (06) | DRG 432 ==
LOC: ER 13:28 → MERGE 16:21 → TELE 16:21 → MED 12-20 09:42
PROVIDERS: ADMIT Family Medicine; ATTEND Family Medicine
PROC: 0W9G3ZZ Drainage of Peritoneal Cavity, Percutaneous Approach (ICD-10-PCS; principal; 2017-12-21)
DX: K74.60 Unspecified cirrhosis of liver (principal); N17.0 Acute kidney failure with tubular necrosis; I50.43 Acute on chronic combined systolic (congestive) and diastolic (congestive) heart failure; R18.8 Other ascites; I13.0 Hypertensive heart and chronic kidney disease with heart failure and stage 1 through stage 4 chronic kidney disease, or unspecified chronic kidney disease; D61.818 Other pancytopenia; E11.319 Type 2 diabetes mellitus with unspecified diabetic retinopathy without macular edema; Z68.36 Body mass index [BMI] 36.0-36.9, adult; N18.9 Chronic kidney disease, unspecified; I11.0 Hypertensive heart disease with heart failure; E11.22 Type 2 diabetes mellitus with diabetic chronic kidney disease; D63.8 Anemia in other chronic diseases classified elsewhere; E03.9 Hypothyroidism, unspecified; E11.42 Type 2 diabetes mellitus with diabetic polyneuropathy; E11.51 Type 2 diabetes mellitus with diabetic peripheral angiopathy without gangrene; E11.649 Type 2 diabetes mellitus with hypoglycemia without coma; Z95.1 Presence of aortocoronary bypass graft; Z87.11 Personal history of peptic ulcer disease; Z86.73 Personal history of transient ischemic attack (TIA), and cerebral infarction without residual deficits; Z95.0 Presence of cardiac pacemaker; Z83.3 Family history of diabetes mellitus; Z82.49 Family history of ischemic heart disease and other diseases of the circulatory system; K72.90 Hepatic failure, unspecified without coma; Z79.899 Other long term (current) drug therapy; E11.65 Type 2 diabetes mellitus with hyperglycemia; E66.9 Obesity, unspecified; E78.5 Hyperlipidemia, unspecified; E83.51 Hypocalcemia; E87.5 Hyperkalemia; F03.90 Unspecified dementia, unspecified severity, without behavioral disturbance, psychotic disturbance, mood disturbance, and anxiety; F09 Unspecified mental disorder due to known physiological condition; I27.20 Pulmonary hypertension, unspecified; K21.9 Gastro-esophageal reflux disease without esophagitis; R21 Rash and other nonspecific skin eruption; N64.59 Other signs and symptoms in breast; H40.9 Unspecified glaucoma; F43.10 Post-traumatic stress disorder, unspecified; K27.9 Peptic ulcer, site unspecified, unspecified as acute or chronic, without hemorrhage or perforation; K58.9 Irritable bowel syndrome, unspecified; M81.0 Age-related osteoporosis without current pathological fracture; R32 Unspecified urinary incontinence; Z79.51 Long term (current) use of inhaled steroids; S99.922A Unspecified injury of left foot, initial encounter; X58.XXXA Exposure to other specified factors, initial encounter; Y92.9 Unspecified place or not applicable; I25.119 Atherosclerotic heart disease of native coronary artery with unspecified angina pectoris; I25.2 Old myocardial infarction; Z96.659 Presence of unspecified artificial knee joint
CPT/HCPCS: 36415; 49083; 71045-TC; 76942-TC; 80048-TC; 80053-TC; 80076-TC; 81000-TC; 82040-TC; 82436-TC; 82550-TC; 82570-TC; 82962-TC; 83690-TC; 83735-TC; 83935-TC; 83970; 84100-TC; 84133-TC; 84155-TC; 84300-TC; 84484-TC; 85025-TC; 85730-TC; 87070-TC; 87075-TC; 87081-TC; 87086-TC; 89051-TC; A4216; A4606; J1815; J1940; J2916; J3490; J7030; J7050; P9047; Z7610

== ENCOUNTER 2018-03-11 12:25 | Emergency (ER) | payer MEDICARE, MEDICAID ==
[~2018-03-11] VITALS: Ht 165.1 cm; Wt 113.4 kg
[~2018-03-11 12:25] MED LIST changes: +AMLO2.5T PO; -AMLO2.5T3 PO; +AMLO5TAB2 PO; -AMLO5TAB7 PO; -FERR325T28 PO; +FURO20TA4 PO; +PROP10TA68 PO; -SPIR25TA PO
[2018-03-11 12:56] LABS: BASOPHILS # (AUTO) 0.1 /CMM (0.0-0.2); BASOPHILS % (AUTO) 2.5 % (0.0-2.0); EOSINOPHILS % (AUTO) 2.5 % (0.0-6.0); HEMATOCRIT 22 % (33-45); LYMPHOCYTES # (AUTO) 0.5 /CMM (0.8-4.8); LYMPHOCYTES % (AUTO) 15.5 % (20.0-44.0); MEAN CORPUSCULAR HEMOGLOBIN 30 PG (26.0-33.0); MEAN CORPUSCULAR HGB CONC 32 g/dl (31.0-36.0); MEAN CORPUSCULAR VOLUME 93 fL (82-100); MONOCYTES # (AUTO) 0.2 /CMM (0.1-1.30); MONOCYTES % (AUTO) 5.2 % (2.0-12.0); NEUTROPHILS # (AUTO) 2.1 /CMM (1.8-8.9); NEUTROPHILS % (AUTO) 74.3 % (43.0-81.0); PLATELET COUNT (AUTO) 114 /CMM (150-450); RDW COEFFICIENT OF VARIATION 15.9 (11.5-15.0); RED BLOOD CELL COUNT(AUTO) 2.36 MIL/uL (4.0-5.2)
[2018-03-11 13:08] LABS: CALCIUM, SERUM 8.5 mg/dL (8.5-10.1); CARBON DIOXIDE 23 mmol/L (21-32); CHLORIDE 114 mmol/L (98-107); CREATININE 1.3 mg/dL (0.6-1.3); GLUCOSE 194 mg/dL (74-106); POTASSIUM 5.3 mmol/L (3.5-5.1); SODIUM SERUM 142 mmol/L (136-145); UREA NITROGEN, BLOOD 23 mg/dL (7-18)
[2018-03-11 13:13] LABS: ALANINE AMINOTRANSFERASE 12 U/L (12-78); ALBUMIN 2.6 g/dL (3.4-5.0); ALKALINE PHOSPHATASE 162 U/L (46-116); ASPARTATE AMINOTRANSFERASE 14 U/L (15-37); BILIRUBIN,DIRECT 0.2 mg/dL (0.0-0.2); BILIRUBIN,TOTAL 0.5 mg/dL (0.2-1.0); INR 1.05 (0.85-1.15); TOTAL PROTEIN, SERUM 7.3 g/dL (6.4-8.2)
[2018-03-11] MEDS ORDERED: LIDOCAINE HCL/PF 1% 30 ML SDV ONE (13:32)
[2018-03-11] MEDS ORDERED: ALBUMIN 25% 12.5 GM/50 ML BOTTLE IV ONE (14:30)
[2018-03-11] MEDS ORDERED: ALBUMIN 25% 50 ML IV ONE ×2 (14:31→14:32)
[2018-03-11] MEDS: ALBUMIN 25% 25 GM in PREMIX 1 EA IV SCH ×3 (15:11→18:00)
[2018-03-11 19:55] VITALS: BP 127/75
== END 2018-03-11 19:55 | disposition home or self-care (01) ==
LOC: ER 12:28
DX: R18.8 Other ascites (principal); I10 Essential (primary) hypertension; E11.9 Type 2 diabetes mellitus without complications; Z79.82 Long term (current) use of aspirin; Z79.4 Long term (current) use of insulin
CPT/HCPCS: 36415; 49083; 76942-TC; 80048-TC; 80076-TC; 85025-TC; 85730-TC; A4216; A4606; J3490; P9047; Z7610

== ENCOUNTER 2018-04-19 21:26 | Inpatient (IN) | payer MEDICARE, MEDICAID ==
[~2018-04-19] VITALS: Ht 152.4 cm; Wt 86.2 kg
[~2018-04-19 21:26] MED LIST changes: -AMLO2.5T PO; +AMLO2.5T3 PO; -AMLO5TAB2 PO; +AMLO5TAB7 PO
--- NOTE | 2018-04-19 21:39 | NUR ---
BBRA 102 FROM HOME C/C SOB W/ NON PRODUCTIVE COUGH D/T DISTENDED ABD.+N,-V HX OF ASCITES. SPO2 98% ANODE WORKER. -DYSURIA, -HEMATURIA. PT AO RR EVEN AND UNLABORED. NO SOB NOTED. NAD NOTED. NO NVD AT THIS TIME. PT GOWNED AND PLACED ON MONTIOR WAITING FOR MD SMITH.
--- NOTE | 2018-04-19 21:50 | NUR ---
MD AT BEDSIDE FOR EVALUATION
--- NOTE | 2018-04-19 21:57 | NUR ---
RAYNA - GRANDDAUGHTER [phone]
--- NOTE | 2018-04-19 22:00 | NUR ---
BBRA 102 FROM HOME C/C SOB W/ NON PRODUCTIVE COUGH D/T DISTENDED ABD.+N,-V,-D. HX OF ASCITES. SPO2 98% MATHEMATICIAN. -DYSURIA, -HEMATURIA. PT IS AAOX4. SKIN NOTED TO BE MILDLY JAUNDICE. NO S/S OF ACUTE DISTRESS NOTED. RR EVEN AND UNLABORED. PT PLACED ON RECEIVABLE CLERK AND POX. PT SAFEY AND COMFORT MEASURES IN PLACE.
[2018-04-19 22:55] LABS: EOSINOPHILS % (AUTO) 3.1 % (0.0-6.0); HEMATOCRIT 23 % (33-45); HEMOGLOBIN 7.3 g/dL (11.5-14.8); LYMPHOCYTES # (AUTO) 0.3 /CMM (0.8-4.8); LYMPHOCYTES % (AUTO) 9.4 % (20.0-44.0); MEAN CORPUSCULAR HGB CONC 31 g/dl (31.0-36.0); MEAN CORPUSCULAR VOLUME 89 fL (82-100); MONOCYTES # (AUTO) 0.2 /CMM (0.1-1.30); MONOCYTES % (AUTO) 7.2 % (2.0-12.0); NEUTROPHILS # (AUTO) 2.7 /CMM (1.8-8.9); NEUTROPHILS % (AUTO) 80.3 % (43.0-81.0); PLATELET COUNT (AUTO) 140 /CMM (150-450); RDW COEFFICIENT OF VARIATION 16.9 (11.5-15.0); RED BLOOD CELL COUNT(AUTO) 2.62 MIL/uL (4.0-5.2); WHITE BLOOD COUNT (AUTO) 3.4 K/uL (4.3-11.0)
--- NOTE | 2018-04-19 23:07 | NUR ---
CALLED NURSE GIOVANI FOR MED.SURG BED
[2018-04-19 23:08] LABS: SERUM AMMONIA 16 umol/L (11-32)
[2018-04-19 23:09] LABS: CALCIUM, SERUM 8.5 mg/dL (8.5-10.1); CARBON DIOXIDE 22 mmol/L (21-32); CHLORIDE 108 mmol/L (98-107); CREATININE 1.4 mg/dL (0.6-1.3); GLUCOSE 187 mg/dL (74-106); POTASSIUM 4.9 mmol/L (3.5-5.1); SODIUM SERUM 140 mmol/L (136-145); UREA NITROGEN, BLOOD 30 mg/dL (7-18)
[2018-04-19 23:11] LABS: INR 1.01 (0.87-1.13)
[2018-04-19 23:16] LABS: TROPONIN I < 0.017 ng/mL (0.00-0.056)
[2018-04-19 23:24] LABS: ALANINE AMINOTRANSFERASE 11 U/L (12-78); ALBUMIN 2.8 g/dL (3.4-5.0); ALKALINE PHOSPHATASE 129 U/L (46-116); ASPARTATE AMINOTRANSFERASE 12 U/L (15-37); BILIRUBIN,DIRECT 0.2 mg/dL (0.0-0.2); BILIRUBIN,TOTAL 0.4 mg/dL (0.2-1.0); LIPASE 239 U/L (73-393); TOTAL PROTEIN, SERUM 7.6 g/dL (6.4-8.2)
[2018-04-19] MEDS ORDERED: MAG HYDROX/AL HYDROX/SIMETH 30 ML UDC PO PRN (23:30)
[2018-04-19] MEDS ORDERED: MAGNESIUM HYDROXIDE 30 ML UDC PO PRN (23:30)
[2018-04-19] MEDS ORDERED: ONDANSETRON HCL/PF 4 MG/2 ML VIAL IVP PRN (23:30)
[2018-04-19] MEDS ORDERED: HYDROCODONE/APAP 5/325MG 1 EACH TABLET PO PRN (23:30)
[2018-04-19] MEDS ORDERED: MORPHINE SULFATE INJ 2 MG/ML DISP.SYRIN IV PRN (23:30)
[2018-04-19] MEDS ORDERED: Z GUARD REMEDY 2 OZ OINT TP PRN (23:30)
[2018-04-19] MEDS ORDERED: hydrALAZINE HCL 25 MG TABLET PO PRN (23:30)
[2018-04-19] MEDS ORDERED: ACETAMINOPHEN 325 MG TABLET PO PRN (23:30)
[2018-04-19] MEDS ORDERED: ZOLPIDEM TARTRATE 5 MG TABLET PO PRN (23:30)
[2018-04-19] MEDS ORDERED: DEXTROSE 50%-WATER 50 ML DISP.SYRIN IV PRN (23:30)
--- NOTE | 2018-04-19 23:37 | NUR ---
PT IS ASSIGNED TO MED SURG RM#: [id number], DX: ASCITES/TAP , AND ACCEPTING MD: DR DE LA TORRE
--- NOTE | 2018-04-19 23:38 | NUR ---
UPDATE PT IS GOING TO TELE RM#: [id number]
--- NOTE | 2018-04-19 23:38 | NUR ---
PT ASSIGNED MS [id number]
--- NOTE | 2018-04-19 23:42 | NUR ---
REPORT GIVEN TO BHARGAVI CORONEL.
--- NOTE | 2018-04-19 23:59 | NUR ---
PT TRANSFERRED TO MS [id number] [facility]IA [facility]
[2018-04-20] VITALS: BP 158/64
--- NOTE | 2018-04-20 00:30 | NUR ---
RECEIVED PT FROM ER IN STABLE CONDITION. ALERT, OX2-3. KENYAN SPEAKING ONLY. UNABLE TO PROVIDE MEDICAL HX EVEN BY STEAM PRESS OPERATOR. BREATHING EVENLY. NO SOB NOTED AT THIS TIME. HOLDING O2 SAT OF 97% ON RA AND REFUSED SUPPLEMENTAL O2 AT THIS TIME. NO C/O PAIN OR DISCOMFORT. NEEDS ASSISTANCE WITH BED MOBILITY DUE TO ABDOMINAL DISTENTION. VSS. SKIN CHECK DONE. NEEDS ATTENDED . BED LOW LOCKED. HOB ELEVATED. CALL LIGHT WITHIN REACH. WILL CONT TO MONITOR AND WILL F/U WITH MD'S ORDERS.
--- NOTE | 2018-04-20 00:51 | NUR ---
RECEIVED A CALL FROM ER, DR. AYALA. WAS CONCERNED ABOUT THE CXR RESULT AND STATED THAT HE HAS TEXT DR. DE LA TORRE ABOUT THAT. CALLED DR DE LA TORRE AND VERIFIES THE ADMITTING ORDER. WITH A NEW ORDER TO CHANGE THE PT'S STATUS FROM MS TO TELE. PT WAS PLACED ON THE TELE MONITOR , WILL CONT TO MONITOR ,
[2018-04-20 04:00] VITALS: BP 142/56
--- NOTE | 2018-04-20 06:16 | NUR ---
RN NOTE; PT IN BED DOZING INTERMITTENTLY. BREATHING EVENLY. NO SOB. NO C/O PAIN. NO ACUTE EVENT DURING THE NIGHT. NEEDS ATTENDED . ASSISTED W/ ADLS. CLEANED AND DRIED. BED LOW LOCKED. CALL LIGHT WITHIN REACH. WILL CONT TO MONITOR AND WILL ENDORSE TO AM SHIFT FOR HOMER.
[2018-04-20] MEDS: BLOOD SUGAR DIAGNOSTIC 1 EACH STRIP IN SCH ×4 (06:43→21:51)
[2018-04-20 06:56] LABS: INR 1.03 (0.87-1.13)
[2018-04-20 07:07] LABS: ALANINE AMINOTRANSFERASE 10 U/L (12-78); ALBUMIN 2.6 g/dL (3.4-5.0); ALKALINE PHOSPHATASE 109 U/L (46-116); ASPARTATE AMINOTRANSFERASE 14 U/L (15-37); BASOPHILS % (AUTO) 0.1 % (0.0-2.0); BILIRUBIN,DIRECT 0.1 mg/dL (0.0-0.2); BILIRUBIN,TOTAL 0.4 mg/dL (0.2-1.0); CALCIUM, SERUM 8.3 mg/dL (8.5-10.1); CARBON DIOXIDE 20 mmol/L (21-32); CHLORIDE 110 mmol/L (98-107); CREATININE 1.3 mg/dL (0.6-1.3); EOSINOPHILS % (AUTO) 1.8 % (0.0-6.0); GLUCOSE 127 mg/dL (74-106); HEMATOCRIT 21 % (33-45); LYMPHOCYTES # (AUTO) 0.6 /CMM (0.8-4.8); LYMPHOCYTES % (AUTO) 19.3 % (20.0-44.0); MAGNESIUM 1.8 mg/dL (1.8-2.4); MEAN CORPUSCULAR HGB CONC 32 g/dl (31.0-36.0); MEAN CORPUSCULAR VOLUME 88 fL (82-100); MONOCYTES # (AUTO) 0.2 /CMM (0.1-1.30); MONOCYTES % (AUTO) 7.8 % (2.0-12.0); NEUTROPHILS # (AUTO) 2.2 /CMM (1.8-8.9); PHOSPHORUS 3.9 mg/dL (2.5-4.9); PLATELET COUNT (AUTO) 119 /CMM (150-450); POTASSIUM 4.6 mmol/L (3.5-5.1); RED BLOOD CELL COUNT(AUTO) 2.38 MIL/uL (4.0-5.2); SODIUM SERUM 139 mmol/L (136-145); UREA NITROGEN, BLOOD 30 mg/dL (7-18); WHITE BLOOD COUNT (AUTO) 3.2 K/uL (4.3-11.0)
[2018-04-20 07:13] LABS: THYROID STIMULATING HORMONE 3.213 uIU/mL (0.358-3.74)
[2018-04-20 07:19] LABS: IRON, SERUM 21 ug/dl (50-175); TOTAL IRON BINDING CAPACITY 220 ug/dl (250-450)
--- NOTE | 2018-04-20 07:37 | NUR ---
ASSOCIATE PROFESSOR OF BIOSTATISTICS OPENING NOTES RECEIVED PATIENT IN STABLE CONDITION. IN NO APPARENT DISTRESS. BEDSIDE RAILS ARE UPX2. BED IS LOCKED AND LOWERED. CALL LIGHT IS WITHIN REACH. IV LINE IS INTACT AND PATENT. WILL CONTINUE TO MONITOR PATIENT.
[2018-04-20 08:00] VITALS: BP 117/53
[2018-04-20] MEDS: CARVEDILOL 3.125 MG TABLET PO SCH ×2 (08:00→17:02)
[2018-04-20 08:02] LABS: HEMOGLOBIN 6.6 g/dL (11.5-14.8)
[2018-04-20] MEDS: ALBUTEROL FS 2.5 MG/3 ML VIAL.NEB NEB SCH ×4 (08:07→19:30)
[2018-04-20] MEDS: AMLODIPINE BESYLATE 5 MG TABLET PO SCH (09:00)
[2018-04-20] MEDS: FOLIC ACID 1 MG TABLET PO SCH (09:00)
[2018-04-20] MEDS: ASPIRIN 81 MG TAB.CHEW PO SCH (09:00)
[2018-04-20] MEDS: SPIRONOLACTONE 25 MG TABLET PO SCH (09:00)
[2018-04-20] MEDS: ATORVASTATIN 10 MG TABLET PO SCH (09:00)
[2018-04-20 09:02] LABS: EOSINOPHILS % (MANUAL) 2 % (0-4); LYMPHOCYTES % (MANUAL) 22 % (16-48); MONOCYTES % (MANUAL) 11 % (0-11.0); NEUTROPHILS % (MANUAL) 65 (42-76)
[2018-04-20] MEDS: LEVOTHYROXINE SODIUM 100 MCG TABLET PO SCH (09:17)
[2018-04-20] MEDS: FUROSEMIDE 40 MG TABLET PO SCH ×2 (09:17→16:58)
--- NOTE | 2018-04-20 10:54 | NUR ---
WOUND CARE CONSULT: PT PRESENTS WITH VERY LARGE ABDOMEN AND ABRASION/WOUND TO ABD HERNIA SITE, SCARRING TO SACRUM AND BUTTOCKS, RASH TO RT ABDOMINAL/GROIN FOLD, PRESENT ON ADMISSION. ALL SKIN PROTECTION AND WOUND CARE RECOMMENDATIONS DISCUSSED WITH NURSING STAFF. WILL SEE PRN. ELLIOTT IN AGREEMENT WITH PLAN OF CARE. Addendum: 04/20/18 at 1056 by GALEN CABEZAS WNDNU Amended: Links added.
[2018-04-20] MEDS: ALBUMIN 25% 25 GM in PREMIX 1 EA IV SCH ×2 (13:39→21:40)
--- NOTE | 2018-04-20 15:53 | NUR ---
PT IS REFUSING TO PROVIDE URINE SAMPLE FOR SODIUM, CREATININE, TOTAL PROTEIN, EOSINOPHIL, AND URINE ANALYSIS. EXPLAINED RISKS AND BENEFITS OF COLLECTING URINE SAMPLE. PATIENT CONTINUES TO REFUSE. SHE STATES "MY URINE IS FINE" Addendum: 04/20/18 at 1556 by TERENCE FARRIS RN DANIEL BURK TRANSLATED PATIENT ONLY SPEAKS TAJIK.
[2018-04-20 16:00] VITALS: BP 127/62
[2018-04-20] MEDS: CLOTRIMAZOLE 1% 15 GM TUBE TP SCH (16:59)
--- NOTE | 2018-04-20 18:13 | NUR ---
WATER FABRICATOR OPERATOR CLOSING NOTES PATIENT IS IN STABLE CONDITION. IN NO APPARENT DISTRESS. BEDSIDE RAILS ARE UPX2. BED IS LOCKED AND LOWERED. CALL LIGHT IS WITHIN REACH. IV LINE IS INTACT AND PATENT. ALL NEEDS WERE MET. WILL ENDORSE CARE TO COMPRESSION MOLDING MACHINE SETTER NURSE FOR HOMER.
--- NOTE | 2018-04-20 19:30 | NUR ---
RN NOTE; RECEIVED SITTING ON THE CHAIR. ALERT AND RESPONSIVE. BREATHING EVENLY. NO SOB, NAD . SKIN WARM AND DRY, REPORTED FEELING BETTER AFTER THE THORACENTESIS. THE SITE ON THE R ABDOMEN WITH BANDAGE IN PLACE AND INTACT. REFUSED BREATHING TX AND DENIED SOB OR PAIN AT THIS TIME. NEEDS ATTENDED. BED LOW LOCKED. CALL LIGHT WITHIN REACH. WILL CONT TO MONITOR Addendum: 04/21/18 at 0340 by VENITA RAGLAND RN S/P PARACENTESIS.. PT DID NOT HAVE THORACENTESIS.
[2018-04-20 20:00] VITALS: BP 100/52
[2018-04-20 20:42] VITALS: BP 100/52
[2018-04-20] MEDS: INSULIN REGULAR, HUMAN 100 UNIT/ML 3 ML VIAL SQ PRN (21:52)
--- NOTE | 2018-04-20 23:05 | NUR ---
PT HAD PARACENTESIS . NOT THORACENTESIS.
[2018-04-21] VITALS (8 sets, daily range): BP systolic 118–139; BP diastolic 55–75
--- NOTE | 2018-04-21 01:00 | NUR ---
PT WAS STARTED ON TRANSFUSION OF PRBC. VSS . IV SITE INTACT AND PATENT W/ NO S/S OF INFECTION OR INFILTRATION. WILL REMAIN WITH THE PT AND WILL MONITOR PT CLOSELY.
--- NOTE | 2018-04-21 01:20 | NUR ---
CONTINUE ON BLOOD TRANSFUSION WITH NO COMPLICATIONS NOTED AT THIS TIME. VSS. AFEBRILE, NO SOB. DENIED ANY PAIN OR DISCOMFORT, WILL CONT TO MONITOR,
--- NOTE | 2018-04-21 03:44 | NUR ---
ON ONGOING BLOOD TRANSFUSION WITH NO COMPLICATIONS OR A/R AT THIS TIME. NO SOB. NO FEVER. VSS. NO S/S OR C/O PAIN OR DISCOMFORT, WILL CONT TO MONITOR,
[2018-04-21] MEDS: ALBUMIN 25% 25 GM in PREMIX 1 EA IV SCH ×2 (05:06→21:26)
--- NOTE | 2018-04-21 06:30 | NUR ---
RN NOTE; PT IN BED DOZING INTERMITTENTLY. BREATHING EVENLY. STILL WITH C/O DISCOMFORT DUE TO ASCITES ALTHOUGH HOLDING O2 SAT OF 97% ON RA. S/P 1 UNIT PRBC W/ NO A/R AND ALBUMIN INFUSION. NEEDS ATTENDED. ASSISTED W/ ADLS. CLEANED AND DRIED, CALL LIGHT WITHIN REACH, WILL CONT TO MONITOR AND WILL ENDORSE TO AM SHIFT FOR HOMER.
[2018-04-21] MEDS: BLOOD SUGAR DIAGNOSTIC 1 EACH STRIP IN SCH ×4 (06:47→21:35)
[2018-04-21 06:50] LABS: BASOPHILS % (AUTO) 0.2 % (0.0-2.0); EOSINOPHILS % (AUTO) 3.5 % (0.0-6.0); HEMATOCRIT 25 % (33-45); HEMOGLOBIN 7.7 g/dL (11.5-14.8); LYMPHOCYTES # (AUTO) 0.7 /CMM (0.8-4.8); LYMPHOCYTES % (AUTO) 21.1 % (20.0-44.0); MEAN CORPUSCULAR HGB CONC 31 g/dl (31.0-36.0); MEAN CORPUSCULAR VOLUME 89 fL (82-100); MONOCYTES # (AUTO) 0.2 /CMM (0.1-1.30); MONOCYTES % (AUTO) 6.8 % (2.0-12.0); NEUTROPHILS # (AUTO) 2.2 /CMM (1.8-8.9); NEUTROPHILS % (AUTO) 68.4 % (43.0-81.0); PLATELET COUNT (AUTO) 126 /CMM (150-450); RED BLOOD CELL COUNT(AUTO) 2.75 MIL/uL (4.0-5.2); WHITE BLOOD COUNT (AUTO) 3.3 K/uL (4.3-11.0)
[2018-04-21 07:06] LABS: CALCIUM, SERUM 8.7 mg/dL (8.5-10.1); CARBON DIOXIDE 22 mmol/L (21-32); CHLORIDE 112 mmol/L (98-107); CREATININE 1.4 mg/dL (0.6-1.3); GLUCOSE 106 mg/dL (74-106); SODIUM SERUM 143 mmol/L (136-145); UREA NITROGEN, BLOOD 30 mg/dL (7-18)
[2018-04-21] MEDS: ALBUTEROL FS 2.5 MG/3 ML VIAL.NEB NEB SCH ×4 (07:35→19:30)
--- NOTE | 2018-04-21 07:56 | NUR ---
RN OPENING MS NOTES RECEIVED PATIENT IN BED, AWAKE A/O X2-3, BREATHING EVEN AND UNLABORED ON RA AND TOLERATING. NO COMPLAINT OF PAIN OR DISCOMFORT AT THE TIME, HAS LEFT WRIST IV ACCESS G#20, PATENT AND FLUSHING. BED IN LOWEST LOCKED POSITION, CALL LIGHT WITHIN REACH, WILL CONTINUE TO MONITOR.
[2018-04-21] MEDS: SPIRONOLACTONE 25 MG TABLET PO SCH (08:18)
[2018-04-21] MEDS: LEVOTHYROXINE SODIUM 100 MCG TABLET PO SCH (08:18)
[2018-04-21] MEDS: ATORVASTATIN 10 MG TABLET PO SCH (08:18)
[2018-04-21] MEDS: FOLIC ACID 1 MG TABLET PO SCH (08:18)
[2018-04-21] MEDS: AMLODIPINE BESYLATE 5 MG TABLET PO SCH (08:19)
[2018-04-21] MEDS: CARVEDILOL 3.125 MG TABLET PO SCH ×2 (08:19→17:07)
[2018-04-21] MEDS: FUROSEMIDE 40 MG TABLET PO SCH ×2 (08:19→16:43)
[2018-04-21] MEDS: ASPIRIN 81 MG TAB.CHEW PO SCH (08:19)
[2018-04-21] MEDS: CLOTRIMAZOLE 1% 15 GM TUBE TP SCH ×2 (08:26→17:18)
[2018-04-21] MEDS: INSULIN REGULAR, HUMAN 100 UNIT/ML 3 ML VIAL SQ PRN ×2 (16:51→21:39)
--- NOTE | 2018-04-21 17:50 | NUR ---
BHARGAVI MS NOTES RECEIVED ORDER FROM CHATNE LINDSEY TO DO ABDOMINAL ULTRASOND FOR PT.
--- NOTE | 2018-04-21 18:21 | NUR ---
RN CLOSING NOTES PT IN BED, AWAKE A/OX2-3, BREATHING EVEN AND UNLABORED ON RA AND TOLERATING. ABDOMEN DISTENDED, AWAITING ABDOMINAL US. LINEN CHANGE PROVIDED, ASSISTED TO BR. NO COMPLAINT OF PAIN OR DISCOMFORT. BED IN LOWEST LOCKED POSITION, CALL LIGHT WITHIN REACH, NO SIGNIFICANT CHANGE DURING SHIFT, VITALS STABLE, WILL ENDORSE TO NIGHT NURSE FOR HOMER
--- NOTE | 2018-04-21 19:05 | NUR ---
MS RN OPENING NOTES RECEIVED PT IN BED, AWAKE, A/O X 2-3 , VERBALLY RESPONSIVE, BAHAMIAN SPEAKING WITH LITTLE BENGALI. NO DISTRESS. NO SOB NOTED. RESPIRATION IS EVEN AND UNLABORED. IV SITE ON LEFT WRIST INTACT AND PATENT, NO S/S OF INFILTRATION NOTED. NO S/S OF HYPO/ HYPERGLYCEMIA NOTED. DENIES ANY PAIN OR DISCOMFORT AT THIS TIME. ALL NEEDS ATTENDED AND MET. KEPT COMFORTABLE. CALL LIGHT WITHIN REACH.SAFETY PRECAUTION OBSERVED. WILL CONT TO MONITOR.
--- NOTE | 2018-04-21 19:55 | NUR ---
PT'S GRAND DAUGHTER DARRON AT BEDSIDE, PER DARRON , DR. HERRERA IS THE PT'S PRIMARY DR. CHARGE NURSE INFORMED.
[2018-04-21 20:12] LABS: APPEARANCE,URINE SL CLOUDY (CLEAR); BILIRUBIN,URINE NEGATIVE (NEGATIVE); BLOOD, URINE NEGATIVE Ery/uL (NEGATIVE); COLOR,URINE YELLOW (YELLOW); KETONES,URINE NEGATIVE (NEGATIVE); LEUKOCYTE ESTERASE ,URINE TRACE (NEGATIVE); NITRITE, URINE NEGATIVE (NEGATIVE); PH,URINE 5.5 (5.0-8.0); PROTEIN,URINE NEGATIVE (NEGATIVE); UGLUCOSE NEGATIVE (NEGATIVE); UROBILINOGEN,URINE 0.2 EU/dL (0.2)
[2018-04-21 20:17] LABS: BACTERIA,URINE Rare /HPF (None Seen); RBC,URINE 0-2 /HPF (0-2); SQUAMOUS EPITHELIAL CELL,UR Few /HPF (None Seen)
--- NOTE | 2018-04-21 20:30 | NUR ---
RECEIVED A CALL FROM DR. HERRERA, PER MD FAMILY AND PT IS REQUESTING TO CHANGE THE MD IN CHARGE AND HAVE DR. VARGHESE IN CHARGE OF THE PT STARTING NOW, CHARGE NURSE LIA AND JENNY NURSING RADIOLOGY NURSE INFORMED. RECEIVED ORDERS FROM DR. VARGHESE, ALBUMIN 25 % (100 ML ) Q 8 HOURS X 3 DOSES TO START NOW, AND PARACENTESIS TOMORROW IF THE ABD ALEXANDRA RESULT IS MODERATE ASCITES, NOTED AND CARRIED OUT. PLACED A CALL TO ADMITTING AND SPOKE WITH THAO REGARDING CHANGE OF PHYSICIAN.
--- NOTE | 2018-04-21 20:38 | NUR ---
PER DR. VARGHESE HE'LL BE HERE TOMORROW.
[2018-04-21 20:41] LABS: EOSINOPHIL,URINE None Seen
--- NOTE | 2018-04-21 22:00 | NUR ---
PLACED A CALL TO DR. YAÑEZ AND INFORMED REGARDING CHANGE OF PHYSICIAN PER DR. YAÑEZ TO ENDORSE TO NEXT SHIFT NURSE TO INFORM EPIC MD TOMORROW.
[2018-04-22] MEDS: ALBUMIN 25% 25 GM in PREMIX 1 EA IV SCH ×3 (04:50→20:27)
[2018-04-22] MEDS: BLOOD SUGAR DIAGNOSTIC 1 EACH STRIP IN SCH ×4 (06:01→21:52)
[2018-04-22 06:34] LABS: BASOPHILS % (AUTO) 0.3 % (0.0-2.0); EOSINOPHILS % (AUTO) 3.3 % (0.0-6.0); HEMATOCRIT 24 % (33-45); HEMOGLOBIN 7.5 g/dL (11.5-14.8); LYMPHOCYTES # (AUTO) 0.6 /CMM (0.8-4.8); LYMPHOCYTES % (AUTO) 17.6 % (20.0-44.0); MEAN CORPUSCULAR HGB CONC 31 g/dl (31.0-36.0); MEAN CORPUSCULAR VOLUME 89 fL (82-100); MONOCYTES # (AUTO) 0.2 /CMM (0.1-1.30); MONOCYTES % (AUTO) 7.3 % (2.0-12.0); NEUTROPHILS # (AUTO) 2.3 /CMM (1.8-8.9); NEUTROPHILS % (AUTO) 71.5 % (43.0-81.0); PLATELET COUNT (AUTO) 116 /CMM (150-450); RDW COEFFICIENT OF VARIATION 17.3 (11.5-15.0); RED BLOOD CELL COUNT(AUTO) 2.67 MIL/uL (4.0-5.2); WHITE BLOOD COUNT (AUTO) 3.2 K/uL (4.3-11.0)
[2018-04-22 06:46] LABS: CALCIUM, SERUM 8.5 mg/dL (8.5-10.1); CARBON DIOXIDE 24 mmol/L (21-32); CHLORIDE 111 mmol/L (98-107); CREATININE 1.4 mg/dL (0.6-1.3); GLUCOSE 119 mg/dL (74-106); MAGNESIUM 1.6 mg/dL (1.8-2.4); PHOSPHORUS 3.9 mg/dL (2.5-4.9); POTASSIUM 4.9 mmol/L (3.5-5.1); SODIUM SERUM 144 mmol/L (136-145); UREA NITROGEN, BLOOD 32 mg/dL (7-18)
[2018-04-22 06:50] LABS: SERUM AMMONIA 15 umol/L (11-32)
--- NOTE | 2018-04-22 06:50 | NUR ---
MS RN CLOSING NOTES PT IN BED, ASLEEP AT THIS TIME, APPEARS COMFORTABLE. A/O X 2-3 , VERBALLY RESPONSIVE, [place]ONG KONGER SPEAKING WITH LITTLE CANADIAN. NO DISTRESS. NO SOB NOTED. RESPIRATION IS EVEN AND UNLABORED. IV SITE ON LEFT WRIST INTACT AND PATENT, NO S/S OF INFILTRATION NOTED. NO S/S OF HYPO/ HYPERGLYCEMIA NOTED. DENIES ANY PAIN OR DISCOMFORT AT THIS TIME. ALL NEEDS ATTENDED AND MET. KEPT COMFORTABLE. GOO DKSIN CARE AND AM CARE RENDERED. CALL LIGHT WITHIN REACH.SAFETY PRECAUTION OBSERVED. WILL ENDORSE TO NEXT SHIFT ACCORDINGLY FOR HOMER.
[2018-04-22] MEDS: ALBUTEROL FS 2.5 MG/3 ML VIAL.NEB NEB SCH ×4 (07:35→19:30)
[2018-04-22 08:00] VITALS: BP 131/46
--- NOTE | 2018-04-22 08:00 | NUR ---
RN NOTES RECEIVED PATIENT IN THE ROOM A/O X3 ISRAELI SPEAKER. PATIENT HAS NO ACUTE RESPIRATORY DISTRESS, REFUSED PAIN. PATIENT HAS DISTENDED ABDOMEN GOING TO HAVE A PARACENTESIS TODAY PER DR QUINTANA ORDER. PATIENT STABLE TURN AND REPOSTION SELF IN THE BED. SCHEDULED MEDICATION ADMINISTERED, V/S STABLE. ENCOURAGED TO EXPRESS FEELINGS AND CONCERNS. CALL LIGHT WITHIN TO REACH. IV ACCESS ON LEFT FA INTACT. CONTINUED MONITORING.
--- NOTE | 2018-04-22 08:08 | NUR ---
PT REFUSED RESP TX AT THIS TIME, NURSE AT BEDSIDE. NO S/S OF SOB NOTED. WILL CONT TO MONITOR Addendum: 04/22/18 at 0809 by REBEKAH WOODARD RT Amended: Links added.
[2018-04-22] MEDS: LEVOTHYROXINE SODIUM 100 MCG TABLET PO SCH (08:43)
[2018-04-22] MEDS: ATORVASTATIN 10 MG TABLET PO SCH (08:43)
[2018-04-22] MEDS: FUROSEMIDE 40 MG TABLET PO SCH ×2 (08:44→16:42)
[2018-04-22] MEDS: ASPIRIN 81 MG TAB.CHEW PO SCH (08:44)
[2018-04-22] MEDS: FOLIC ACID 1 MG TABLET PO SCH (08:44)
[2018-04-22] MEDS: CARVEDILOL 3.125 MG TABLET PO SCH ×2 (08:44→18:43)
[2018-04-22] MEDS: SPIRONOLACTONE 25 MG TABLET PO SCH (08:44)
[2018-04-22] MEDS: AMLODIPINE BESYLATE 5 MG TABLET PO SCH (08:44)
[2018-04-22] MEDS: CLOTRIMAZOLE 1% 15 GM TUBE TP SCH (08:46)
[2018-04-22] MEDS: Magnesium 1GM/D5W 100ML PREMIX 100 ML IV SCH ×2 (09:47→10:57)
--- NOTE | 2018-04-22 12:00 | NUR ---
rn notes bs-199 mg/dl coverage given, scheduled medication administered, also patient with RT ambulated in the hallway. patient refused dizziness at this time. patient a/o x3, sign consent form have paracentesis procedure today.
--- NOTE | 2018-04-22 14:20 | NUR ---
rn notes PATIENT ON PROCEDURE FOR PARACENTESIS AT THIS TIME WITH US GUIDED. CALLED DR HERRERA GETTING ORDER REMOVE MORE PARACENTESES FLUIDS 10 LITTERS AN AMOUNT, PATIENT TOLERATED PROCEDURE WELL, V/S TAKEN STABLE. CONTINUED MONITORING.
--- NOTE | 2018-04-22 14:44 | NUR ---
RN NOTES END PARACENTESIS PROCEDURE AT THIS TIME TOTAL AMOUNT WAS REMOVED 9120 L. V/S TAKEN BP 135/58, P-65, T-97.3, R-18, PATIENT STABLE, NO ACUTE RESPIRATORY DISTRESS. CALL LIGHT WITHIN TO REACH,. CONTINUED MONITORING.
[2018-04-22] MEDS ORDERED: NYSTATIN TOP POWDER 15 GM BOTTLE TP SCH ×2 (15:30→21:00)
[2018-04-22 16:00] VITALS: BP 135/58
[2018-04-22] MEDS ORDERED: Magnesium 1GM/D5W 100ML PREMIX PIGGYBACK IV ONE (16:30)
[2018-04-22] MEDS: INSULIN REGULAR, HUMAN 100 UNIT/ML 3 ML VIAL SQ PRN ×2 (16:43→21:57)
[2018-04-22] MEDS ORDERED: Magnesium 1GM/D5W 100ML PREMIX 100 ML IV SCH (17:00)
--- NOTE | 2018-04-22 17:45 | NUR ---
RN NOTES TAKE SPECIMEN ABDOMINAL PARACENTESIS TO THE LABORATORY FOR BODY FLUID, AND WBC BODY FLUID.
[2018-04-22] MEDS: SOD FERRIC GLUC 125 MG in IV NS 0.9% 100 ML IV SCH (18:44)
[2018-04-22] MEDS: PANTOPRAZOLE 40 MG VIAL IV SCH (18:45)
--- NOTE | 2018-04-22 18:57 | NUR ---
RN NOTES PATIENT REFUSED CT ABDOMEN/PELVIC WO CONTRAST. KARTHIK LINDSEY AWARE OF.
--- NOTE | 2018-04-22 19:00 | NUR ---
RN NOTES PATIENT IN THE BED STABLE AFTER ABDOMINAL PARACENTESIS, NO ACUTE RESPIRATORY DISTRESS, BS-196 MG/DL COVERAGE GIVEN, V/S STABLE, SCHEDULED MEDICATION ADMINISTERED, PATIENT TURN AND REPOSTION SELF IN THE BED, NEEDS ATTENDED AND ANTICIPATED, CALL LIGHT WITHIN TO REACH, SAFETY PRECAUTION MAINTAINED ALL THE TIME. ENDORSED ONCOMING NURSE FOR PLAN OF CARE.
--- NOTE | 2018-04-22 19:15 | NUR ---
MS RN OPENING NOTES RECEIVED PT IN BED, AWAKE, A/O X 2-3 , VERBALLY RESPONSIVE, TURKISH SPEAKING WITH LITTLE ROMANIAN. NO DISTRESS, NOR SOB NOTED. RESPIRATION IS EVEN AND UNLABORED. IV SITE ON LEFT WRIST INTACT AND PATENT, NO S/S OF INFILTRATION NOTED. NO S/S OF HYPO/ HYPERGLYCEMIA NOTED. DENIES ANY PAIN OR DISCOMFORT AT THIS TIME. SITTER AT BED SIDE. ALL NEEDS ATTENDED AND MET. KEPT COMFORTABLE. CALL LIGHT WITHIN REACH.SAFETY PRECAUTION OBSERVED. WILL CONT TO MONITOR.
[2018-04-22 20:00] VITALS: BP 117/56
--- NOTE | 2018-04-22 20:04 | NUR ---
PLACED A CALL TO PHARMACY AND SPOKE WITH BRAYAN, TO FF UP REGARDING NYSTATIN POWDER AND ALBUMIN , THEY'LL SEND IT RIGHT NOW.
--- NOTE | 2018-04-22 20:08 | NUR ---
RECEIVED A CALL FROM ARNALDO, PHARMACY, ACCDG TO HER THEY RUN OUT OF THE NYSTATIN POWDER, THEY WILL JUST SEND IT TOMORROW.
--- NOTE | 2018-04-22 21:45 | NUR ---
PT REFUSED TO BE CHANGED , RISK AND BENEFITS EXPLAINED, ABLE TO CONVINCED PT, GOOD SKIN CARE RENDERED Z GUARD AND MEPILEX APPLIED TO SACRAL AND BUTTOCKS. PT REFUSED TO OFF LOAD HEELS, RISK AND BENEFITS EXPLAINED PT STILL REFUSED.
[2018-04-23] MEDS: ALBUMIN 25% 25 GM in PREMIX 1 EA IV SCH ×2 (03:26→11:36)
--- NOTE | 2018-04-23 04:12 | NUR ---
pt refused to be turned repositioned at this time, risk and benefits explained , pt still refused. amy hdz at bedside.
[2018-04-23] MEDS: BLOOD SUGAR DIAGNOSTIC 1 EACH STRIP IN SCH ×3 (06:13→17:13)
[2018-04-23] MEDS: INSULIN REGULAR, HUMAN 100 UNIT/ML 3 ML VIAL SQ PRN ×3 (06:16→17:14)
[2018-04-23 06:17] LABS: BASOPHILS % (AUTO) 0.1 % (0.0-2.0); EOSINOPHILS % (AUTO) 2.8 % (0.0-6.0); HEMATOCRIT 23 % (33-45); HEMOGLOBIN 7.4 g/dL (11.5-14.8); LYMPHOCYTES # (AUTO) 0.4 /CMM (0.8-4.8); LYMPHOCYTES % (AUTO) 13.2 % (20.0-44.0); MEAN CORPUSCULAR HGB CONC 32 g/dl (31.0-36.0); MEAN CORPUSCULAR VOLUME 89 fL (82-100); MONOCYTES # (AUTO) 0.2 /CMM (0.1-1.30); MONOCYTES % (AUTO) 6.7 % (2.0-12.0); NEUTROPHILS # (AUTO) 2.4 /CMM (1.8-8.9); NEUTROPHILS % (AUTO) 77.2 % (43.0-81.0); PLATELET COUNT (AUTO) 112 /CMM (150-450); RDW COEFFICIENT OF VARIATION 16.7 (11.5-15.0); RED BLOOD CELL COUNT(AUTO) 2.62 MIL/uL (4.0-5.2); WHITE BLOOD COUNT (AUTO) 3.1 K/uL (4.3-11.0)
[2018-04-23 06:48] LABS: ALANINE AMINOTRANSFERASE 7 U/L (12-78); ALBUMIN 3.4 g/dL (3.4-5.0); ALKALINE PHOSPHATASE 95 U/L (46-116); ASPARTATE AMINOTRANSFERASE 6 U/L (15-37); BILIRUBIN,TOTAL 0.6 mg/dL (0.2-1.0); CALCIUM, SERUM 8.5 mg/dL (8.5-10.1); CARBON DIOXIDE 23 mmol/L (21-32); CHLORIDE 108 mmol/L (98-107); CREATININE 1.6 mg/dL (0.6-1.3); GLUCOSE 139 mg/dL (74-106); POTASSIUM 4.9 mmol/L (3.5-5.1); SODIUM SERUM 140 mmol/L (136-145); TOTAL PROTEIN, SERUM 6.6 g/dL (6.4-8.2); UREA NITROGEN, BLOOD 33 mg/dL (7-18)
--- NOTE | 2018-04-23 07:20 | NUR ---
MS RN CLOSING NOTES PT IN BED, RSETING COMFORTABLY AT THIS TIME, AROUSES EASILY, A/O X 2-3 , VERBALLY RESPONSIVE, TAMAZIGHT SPEAKING WITH LITTLE SRI LANKAN. NO DISTRESS, NOR SOB NOTED. RESPIRATION IS EVEN AND UNLABORED. IV SITE ON LEFT WRIST INTACT AND PATENT, NO S/S OF INFILTRATION NOTED. NO S/S OF HYPO/ HYPERGLYCEMIA NOTED. DENIES ANY PAIN OR DISCOMFORT AT THIS TIME. SITTER AT BED SIDE. ALL NEEDS ATTENDED AND MET. KEPT COMFORTABLE. CALL LIGHT WITHIN REACH.SAFETY PRECAUTION OBSERVED. ENDORSED TO NEXT SHIFT ACCORDINGLY FOR HOMER.
[2018-04-23 07:23] VITALS: BP 117/56
--- NOTE | 2018-04-23 07:26 | NUR ---
MS RN OPENING NOTES PATIENT RECEIVED AWAKE IN BED IN NO ACUTE SIGNS OF DISTRESS. SITTER AT BEDSIDE. A/O X 2-3. ABLE TO COMMUNICATE VERBALLY IN [place]URKMEN WITH LITTLE BAHAMIAN, DENIES PAIN OR ANY DISCOMFORTS AT THIS TIME. ABDOMEN NOTED DISTENDED. ON ROOM AIR, RESPIRATION EVEN AND UNLABORED. IV ACCESS ON LEFT WRIST INTACT AND PATENT, NO S/S OF INFILTRATIONS NOTED. SAFETY MEASURES IN PLACE. BED IN LOW LOCKED POSITION WITH SR UP X2. CALL LIGHT WITHIN REACH. WILL CONTINUE TO MONITOR.
[2018-04-23] MEDS: ALBUTEROL FS 2.5 MG/3 ML VIAL.NEB NEB SCH ×3 (07:35→15:29)
[2018-04-23] MEDS: LEVOTHYROXINE SODIUM 100 MCG TABLET PO SCH (07:52)
[2018-04-23 08:00] VITALS: BP 113/50
[2018-04-23] MEDS: CARVEDILOL 3.125 MG TABLET PO SCH ×2 (08:00→17:18)
[2018-04-23] MEDS: ASPIRIN 81 MG TAB.CHEW PO SCH (08:15)
[2018-04-23] MEDS: ATORVASTATIN 10 MG TABLET PO SCH (08:15)
[2018-04-23] MEDS: FOLIC ACID 1 MG TABLET PO SCH (08:15)
[2018-04-23] MEDS: FUROSEMIDE 40 MG TABLET PO SCH ×2 (08:15→16:33)
[2018-04-23] MEDS: AMLODIPINE BESYLATE 5 MG TABLET PO SCH (08:18)
[2018-04-23] MEDS: SPIRONOLACTONE 25 MG TABLET PO SCH (08:18)
[2018-04-23] MEDS ORDERED: NYSTATIN TOP POWDER 15 GM BOTTLE TP SCH (09:00)
[2018-04-23] MEDS ORDERED: CLOTRIMAZOLE 1% 15 GM TUBE TP SCH (09:00)
[2018-04-23] MEDS ORDERED: SPIR25TA PO (09:36)
[2018-04-23] MEDS ORDERED: ZOLP5TAB2 PO (09:36)
[2018-04-23] MEDS ORDERED: CARV3.122 PO (09:36)
[2018-04-23] MEDS ORDERED: ACET325T53 PO (09:36)
[2018-04-23] MEDS ORDERED: ASPI-1169 PO (09:36)
[2018-04-23] MEDS ORDERED: FURO40TA5 PO (09:36)
[2018-04-23] MEDS ORDERED: ATOR10TA PO (09:36)
[2018-04-23] MEDS ORDERED: HYDR-4076 PO (09:36)
[2018-04-23] MEDS ORDERED: AMLO5TAB7 PO (09:36)
[2018-04-23 16:00] VITALS: BP 117/62
[2018-04-23] MEDS: PANTOPRAZOLE 40 MG VIAL IV SCH (16:34)
[2018-04-23] MEDS: SOD FERRIC GLUC 125 MG in IV NS 0.9% 100 ML IV SCH (16:41)
--- NOTE | 2018-04-23 16:59 | NUR ---
RN NOTES PATIENT IS VERY IMPATIENT AND WANTS TO GO HOME. CALLED DAUGHTER DARRON AT [facility][phone] TO CONFIRM WHAT TIME THEY WILL COME AND SAID THAT SHE WILL COME IN ONE HOUR WITH HER BROTHER TO TAKE PT'S HOME.
[2018-04-23 17:18] VITALS: BP 117/62
--- NOTE | 2018-04-23 18:41 | NUR ---
RN NOTES CALLED PT'S DAUGHTER FABI AND ASKED WHEN IS HER BROTHER COMING TO TAKE PT'S HOME AND SHE THOUGHT THAT HER BROTHER IS HERE ALREADY. SHE SAID THAT SHE WILL CALL HER BROTHER NOW TO COME TO THE HOSPITAL. WILL F/U.
--- NOTE | 2018-04-23 18:55 | NUR ---
RN DISCHARGED NOTES PATIENT DISCHARGED HOME IN STABLE CONDITION. A/O X3, SAME ABLE TO VERBALIZED NEEDS IN MAORI. ALL NEEDS AND CARE ATTENDED WELL. V/S TAKEN AND RECORDED. PHOTO OF SKIN TAKEN AND FILED ON CHART. IV ACCESS ON LEFT WRIST REMOVED WITH NO BLEEDING NOTED, PRESSURE GAUZED APPLIED. ARM BAND REMOVED. BELONGINGS CHECKED, COUNTED AND SIGNED FORM. PT REFUSED FLU AND PNA VACCINES DESPITE EXPLAINING RISKS AND BENEFITS. HEALTH TEACHINGS GIVEN TO PT'S GRANDSON PASHA AND TRANSLATED TO PT WITH VERBALIZATION OF UNDERSTANDING. PT LEFT UNIT VIA WHEELCHAIR AT 1850 ACCOMPANIED BY X RAY CONSULTANT AND PT'S GRANDSON PASHA. CHARGE NURSE AWARE OF DISCHARGE.
== END 2018-04-23 18:51 | disposition home health service (06) | DRG 432 ==
LOC: ER 21:29 → MED 23:41 → TELE 04-20 00:53 → MED 04-20 08:51
PROVIDERS: ADMIT Family Medicine; ATTEND Family Medicine
PROC: 0W9G3ZZ Drainage of Peritoneal Cavity, Percutaneous Approach (ICD-10-PCS; principal; 2018-04-20)
PROC: 30233N1 Transfusion of Nonautologous Red Blood Cells into Peripheral Vein, Percutaneous Approach (ICD-10-PCS; 2018-04-21)
PROC: 0W9G3ZZ Drainage of Peritoneal Cavity, Percutaneous Approach (ICD-10-PCS; 2018-04-22)
DX: K74.60 Unspecified cirrhosis of liver (principal); N17.0 Acute kidney failure with tubular necrosis; I13.0 Hypertensive heart and chronic kidney disease with heart failure and stage 1 through stage 4 chronic kidney disease, or unspecified chronic kidney disease; R18.8 Other ascites; I50.40 Unspecified combined systolic (congestive) and diastolic (congestive) heart failure; N18.9 Chronic kidney disease, unspecified; I48.91 Unspecified atrial fibrillation; E11.22 Type 2 diabetes mellitus with diabetic chronic kidney disease; D63.8 Anemia in other chronic diseases classified elsewhere; E03.9 Hypothyroidism, unspecified; E66.9 Obesity, unspecified; E78.5 Hyperlipidemia, unspecified; E83.51 Hypocalcemia; E88.09 Other disorders of plasma-protein metabolism, not elsewhere classified; F03.90 Unspecified dementia, unspecified severity, without behavioral disturbance, psychotic disturbance, mood disturbance, and anxiety; M79.7 Fibromyalgia; M81.0 Age-related osteoporosis without current pathological fracture; L30.4 Erythema intertrigo; E11.319 Type 2 diabetes mellitus with unspecified diabetic retinopathy without macular edema; E11.42 Type 2 diabetes mellitus with diabetic polyneuropathy; I25.2 Old myocardial infarction; I25.10 Atherosclerotic heart disease of native coronary artery without angina pectoris; Z90.49 Acquired absence of other specified parts of digestive tract; I27.20 Pulmonary hypertension, unspecified; Z68.37 Body mass index [BMI] 37.0-37.9, adult; M62.50 Muscle wasting and atrophy, not elsewhere classified, unspecified site; R32 Unspecified urinary incontinence; L98.8 Other specified disorders of the skin and subcutaneous tissue; K21.9 Gastro-esophageal reflux disease without esophagitis; K27.9 Peptic ulcer, site unspecified, unspecified as acute or chronic, without hemorrhage or perforation; K42.9 Umbilical hernia without obstruction or gangrene; I25.119 Atherosclerotic heart disease of native coronary artery with unspecified angina pectoris; H40.9 Unspecified glaucoma; Z91.81 History of falling; Z86.73 Personal history of transient ischemic attack (TIA), and cerebral infarction without residual deficits; Z95.0 Presence of cardiac pacemaker; Z95.1 Presence of aortocoronary bypass graft; D69.59 Other secondary thrombocytopenia; E11.9 Type 2 diabetes mellitus without complications; Z79.4 Long term (current) use of insulin
CPT/HCPCS: 36415; 71045-TC; 76942-TC; 80048-TC; 80053-TC; 80076-TC; 81000-TC; 82140-TC; 82728-TC; 82962-TC; 83540-TC; 83690-TC; 83735-TC; 84100-TC; 84443-TC; 84484-TC; 85025-TC; 85610-TC; 85730-TC; 86850-TC; 86880-TC; 86921-TC; 87070-TC; 87081-TC; 89051-TC; 94799-TC; A4216; A4606; C9113; G0378; J1815; J2916; J3475; J7030; J7050; P9016-BL; P9047; Z7610

== ENCOUNTER 2018-07-19 16:52 | Inpatient (IN) | payer MEDICARE, MEDICAID ==
[~2018-07-19] VITALS: Ht 152.4 cm; Wt 73.9 kg
[~2018-07-19 16:52] MED LIST changes: +ACET650S26 NG; +ALLA266C2 TP; -AMLO2.5T3 PO; -AMLO5TAB7 PO; -ATOR10TA PO; -BUDE10.2 INH; +BUME1TAB4 PO; -Blood Sugar Diagnostic IN; -CARV6.252 PO; -CYAN500T4 PO; -DEXL60CA3 PO; -ENAL2.5T PO; -FERR325T24 PO; -FLUT1DIS3 IH; -FOLI1TAB16 PO; -FURO20TA4 PO; -FURO40TA5 PO; -HYDR-4076 PO; -HYDR28.3 TP; -INSU100V27 SQ; -ISOS20TA8 PO; +Isosorbide Mononitrate (30MG) PO; +LACT10SO6 PO; -LEVO100T9 PO; -LEVO125T PO; -LEVO125T8 PO; +LEVO50TA PO; -LINA145C PO; -LINA5TAB PO; -MECL-102 PO; +Nitroglycerin SL; +ONDA4VIA23 PO; -PANT40TA2 PO; +PANT40VI PO; -PROP10TA68 PO; -PROP20TA19 PO; -REPA2TAB9 PO; -SPIR25TA6 PO; -TIOT4MIS2 IH; -TIOT4MIS5 IH; -VORT10TA PO; +ZOLP5TAB2 PO
--- NOTE | 2018-07-19 17:00 | NUR ---
PT BIBRA C/O SOB WITH SIGNIFICANT ABD DISTENSION, GETS PARACENTESIS APPROX 1X/MO, PT IS AAOX4 YI SPEAKING, NOT IN RESPIRATORY DISTRESS, V/S STABLE, KEPT RESTED AND COMFORTABLE.
--- NOTE | 2018-07-19 17:15 | NUR ---
LABS DRAWNED AND SENT TO LAB, AWAITING RESULTS.
[2018-07-19 17:22] LABS: BASOPHILS % (AUTO) 0.3 % (0.0-2.0); EOSINOPHILS % (AUTO) 2.4 % (0.0-6.0); HEMATOCRIT 26 % (33-45); HEMOGLOBIN 8.1 g/dL (11.5-14.8); LYMPHOCYTES # (AUTO) 0.5 /CMM (0.8-4.8); LYMPHOCYTES % (AUTO) 12.3 % (20.0-44.0); MEAN CORPUSCULAR HGB CONC 31 g/dl (31.0-36.0); MEAN CORPUSCULAR VOLUME 93 fL (82-100); MONOCYTES # (AUTO) 0.3 /CMM (0.1-1.30); MONOCYTES % (AUTO) 5.7 % (2.0-12.0); NEUTROPHILS # (AUTO) 3.5 /CMM (1.8-8.9); NEUTROPHILS % (AUTO) 79.3 % (43.0-81.0); PLATELET COUNT (AUTO) 130 /CMM (150-450); RED BLOOD CELL COUNT(AUTO) 2.82 MIL/uL (4.0-5.2); WHITE BLOOD COUNT (AUTO) 4.4 K/uL (4.3-11.0)
--- NOTE | 2018-07-19 17:23 | NUR ---
RADIOLOGY AT BEDSIDE FOR XRAY.
[2018-07-19 17:32] LABS: CALCIUM, SERUM 8.5 mg/dL (8.5-10.1); CARBON DIOXIDE 23 mmol/L (21-32); CHLORIDE 109 mmol/L (98-107); CREATININE 1.5 mg/dL (0.6-1.3); GLUCOSE 106 mg/dL (74-106); SODIUM SERUM 140 mmol/L (136-145); UREA NITROGEN, BLOOD 42 mg/dL (7-18)
--- NOTE | 2018-07-19 17:52 | NUR ---
DR YANEZ SPOKE WITH DR HERRERA ON PHONE
--- NOTE | 2018-07-19 18:42 | NUR ---
REPORT GIVEN TO BHARGAVI HERNANDEZ FOR HOMER.
--- NOTE | 2018-07-19 18:55 | NUR ---
MS RN NOTES RECEIVED PATIENT FROM ER WITH STABLE VITAL SIGNS. NO ACUTE DISTRESS NOTED BREATHING UNLABORED. NO SOB NOTED. DENIED ANY PAIN. NEEDS ATTENDED. CALL LIGHT WITHIN REACH. SAFETY MEASURE IN PLACE. WILL ENDORSE TO NIGHT NURSE FOR ADMISSION.
--- NOTE | 2018-07-19 19:40 | NUR ---
SKATES OPERATOR NOTES, RECEIVED PATIENT IN BED, AWAKE A/O X3 ABLE TO VERBALIZE NEEDS IN EGYPTIAN ONLY, BREATHING EVEN AND UNLABORED, NO S/S OF ANY DISTRESS, SOB/ OR C/O PAIN AT THIS TIME, SR IN THE INSIDE SALES SPECIALIST, IV SITE IN RFA #18G S/L, UNDER THE MEDICAL SERVICES OF DR SHARON V, WILL CONTACT MD FOR ORDERS, KEPT DRY AND CLEAN, AFEBRILE AT THIS TIME, CALL LIGHT W/I REACH, VS 98.1, 65, 30, 98% RA, 142/56, WILL CONTINUE TO MONITOR CLOSELY.
[2018-07-19 20:00] VITALS: BP 148/56
[2018-07-19] MEDS ORDERED: PANT40TA4 PO (20:48)
[2018-07-19] MEDS ORDERED: ZOLP5TAB8 PO (20:48)
[2018-07-19] MEDS ORDERED: ISOS30TA6 PO ×2 (20:48→20:53)
--- NOTE | 2018-07-19 21:00 | NUR ---
NURSE SEXUAL ASSAULT NOTES, PAGED MD TO INFORM ABOUT PATIENT ADMITTED TO TELE AND GET ORDERS FOR MEDICATIONS, AWAITING FOR CALL BACK.
--- NOTE | 2018-07-19 21:00 | NUR ---
RN NOTES, INFORMED PATIENT ABOUT HOSPITAL PROTOCOL ABOUT SKIN ISSUES AND THE NECESSITY FOR PICTURES, PATIENT REFUSED PICTURES, EXPLAINED RISKS AND BENEFITS 3X, STILL REFUSED, WILL ASK LATER AGAIN.
--- NOTE | 2018-07-19 21:10 | NUR ---
CREDIT ADMINISTRATION OFFICER NOTES, RECEIVED CALL BACK FROM DR SHARON V AND RECEIVED A NEW ORDER TO CONTINUE SAME MEDICATIONS FROM HOME AND HOLD ASPIRIN FOR NOW, ALSO US GUIDED PARACENTESIS IN AM, NPO AFTER MIDNIGHT, MAGNESIUM, IRON, TSH LEVEL IN THE MORNING, AND REGULAR 2G SODIUM DIET, ORDERS NOTED AND CARRIED OUT.
[2018-07-19] MEDS ORDERED: LEVO50TA8 PO (21:35)
[2018-07-19] MEDS ORDERED: LACT10SO PO (21:35)
[2018-07-19] MEDS ORDERED: CARV3.12 PO (21:35)
[2018-07-19] MEDS ORDERED: BUME1TAB4 PO (21:35)
[2018-07-19] MEDS ORDERED: ALLA266C2 TP (21:35)
[2018-07-19] MEDS ORDERED: NITR0.4T48 SL (22:00)
[2018-07-19] MEDS ORDERED: ZOLP5TAB2 PO (22:00)
[2018-07-19] MEDS ORDERED: ASPI-605 PO (22:02)
[2018-07-20] VITALS: BP 132/67
[2018-07-20 04:00] VITALS: BP 132/59
--- NOTE | 2018-07-20 06:45 | NUR ---
LEASE OPERATOR NOTES, PATIENT IN BED SLEEPING AT THIS TIME, BUT EASILY AROUSABLE TO VERBAL STIMULI, BREATHING EVEN AND UNLABORED, NO S/S OF ANY DISTRESS, SOB/ OR C/O PAIN AT THIS TIME, SR IN THE HEALTH PLAN SPECIALIST, IV SITE IN RFA #18G S/L, NPO SINCE MIDNIGHT, FOR US GUIDED PARACENTESIS TODAY, AGAIN ASKED TO TAKE PICTURES OF FOR SKIN ASSESSMENT AND SHE REFUSED PICTURES, CALL LIGHT W/I REACH, WILL ENDORSE CONTINUITY OF CARE TO ONCOMING NURSE.
--- NOTE | 2018-07-20 07:20 | NUR ---
MASTER PRINTER OPENING NOTES RECEIVED PT LYING ON BED.KISWAHILI SPEAKING PT.ALERT/ORIENTED X3.ON TELE HR IS 70'S WITH V PACING.ON ROOM AIR.NO SOB AND ACUTE DISTRESS NOTED.ON NPO.IV LINE IS RIGHT FA G18,SITE IS CLEAN AND DRY.NO INFILTRATION NOTED.PLANNING TO DO US GUIDED PARACENTESIS TODAY. SAFETY IS MAINTAINED AT ALL TIMES.BED IS IN LOW POSITION AND LOCKED.CALL LIGHT IS WITHIN REACH.WILL CONTINUE TO MONITOR THE PT CLOSELY.
[2018-07-20 07:48] LABS: THYROID STIMULATING HORMONE 2.049 uIU/mL (0.358-3.74)
[2018-07-20 08:00] VITALS: BP 140/41
[2018-07-20] MEDS ORDERED: NITROGLYCERIN 0.4 MG/TAB BOTTLE SL PRN (11:30)
[2018-07-20] MEDS ORDERED: ONDANSETRON HCL/PF 4 MG/2 ML VIAL IV PRN (11:30)
[2018-07-20] MEDS ORDERED: LACTULOSE 10 G/15 ML UDC (PYXIS) PO PRN (11:30)
[2018-07-20] MEDS ORDERED: NYSTATIN TOP POWDER 15 GM BOTTLE TP SCH (11:30)
--- NOTE | 2018-07-20 11:56 | NUR ---
MANAGER OF CREATIVE SERVICES NOTES PT IS LYING ON BED.STILL ON NPO.TOLERATING WELL.VITAL SIGNS ARE WNL.WAITING FOR THE PROCEDURE TO DO.NO COMPLICATIONS ARE NOTED.
[2018-07-20 12:00] VITALS: BP 96/45
[2018-07-20] MEDS ORDERED: LIDOCAINE 1% INJ 50 ML MDV IJ ONE (12:02)
[2018-07-20] MEDS ORDERED: ALBUMIN 25% 12.5 GM/50 ML BOTTLE IV ONE (12:30)
--- NOTE | 2018-07-20 15:00 | NUR ---
BULLET LUBRICATING MACHINE OPERATOR NOTES DONE WITH PARACENTESIS AND DRAINED 8.5L BODY FLUIDS FROM RIGHT SIDE.PT TOLERATED WELL.VITAL SIGNS CHECKED AND IT IS WNL.NO COMPLICATIONS NOTED. ORDERED BODY FLUID WBC,ALBUMIN AND C&S.NEW ORDERS NOTED AND CARRIED OUT.SEND SPECIMEN TO LAB.
[2018-07-20 16:00] VITALS: BP 153/82
[2018-07-20] MEDS: CARVEDILOL 3.125 MG TABLET PO SCH (16:44)
--- NOTE | 2018-07-20 19:02 | NUR ---
CORNICE MAKER CLOSING NOTES PT IS LYING ON BED.S/P PARACENTESIS DONE.VITAL SIGNS ARE WNL.ENDORSED TO COMPENSATION MANAGER RN FOR HOMER.
[2018-07-20 20:00] VITALS: BP_SYST 158; BP_SYST 161; BP_DIAS 76; BP_DIAS 77
[2018-07-21] VITALS (7 sets, daily range): BP systolic 110–130; BP diastolic 51–80
--- NOTE | 2018-07-21 06:47 | NUR ---
SOLUTION DESIGN ENGINEER NOTES, PATIENT IN BED AWAKE , ABLE TO VERBALIZED NEEDS, BREATHING EVEN AND UNLABORED, NO S/S OF ANY DISTRESS, SOB/ OR C/O PAIN AT THIS TIME, SR IN THE DICE TABLE PERSON, IV SITE IN RFA #18G S/L, S/P PARACENTESIS, WITH BP WNL, AND REST OF VS, CALL LIGHT W/I REACH, WILL ENDORSE CONTINUITY OF CARE TO ONCOMING NURSE.
--- NOTE | 2018-07-21 07:10 | NUR ---
ASSOCIATE PROFESSOR OF MEDIA ARTS OPENING NOTES RECEIVED PT LYING ON BED.DIVEHI SPEAKING PT.ALERT/ORIENTED X3.ON TELE HR IS 67 WITH V PACING.ON ROOM AIR.NO SOB AND ACUTE DISTRESS NOTED.IV LINE IS RIGHT FA G18,SITE IS CLEAN AND DRY.NO INFILTRATION NOTED. SAFETY IS MAINTAINED AT ALL TIMES.BED IS IN LOW POSITION AND LOCKED.CALL LIGHT IS WITHIN REACH.WILL CONTINUE TO MONITOR THE PT CLOSELY.
[2018-07-21] MEDS: PANTOPRAZOLE 40 MG TABLET.DR PO SCH (08:28)
[2018-07-21] MEDS: LEVOTHYROXINE SODIUM 50 MCG TABLET PO SCH (08:28)
[2018-07-21] MEDS: BUMETANIDE (1 MG) 1 MG TABLET PO SCH (08:28)
[2018-07-21] MEDS: CARVEDILOL 3.125 MG TABLET PO SCH ×2 (08:28→16:52)
[2018-07-21] MEDS: Z GUARD REMEDY 2 OZ OINT TP SCH (08:29)
--- NOTE | 2018-07-21 10:00 | NUR ---
GATE SERVICES SUPERVISOR NOTES OT/PT HAS DONE.TOLERATED WELL AND THEY ASSESSED THE PT CAN ABLE TO AMBULATE WITH MINIMAL ASSISTANCE.NO COMPLICATIONS NOTED.
--- NOTE | 2018-07-21 11:17 | NUR ---
WATER FILTER CLEANER NOTES IV ALBUMIN IS NOT YET DELIVERED,CALLED [facility] DANIEL OLIVO.SAID WILL DELIVER SOON
[2018-07-21] MEDS: ALBUMIN 25% 25 GM in PREMIX 1 EA IV SCH ×2 (12:03→17:37)
[2018-07-21] MEDS ORDERED: SOD FERRIC GLUC 125 MG in IV NS 0.9% 100 ML IV SCH (14:00)
--- NOTE | 2018-07-21 19:00 | NUR ---
RAWHIDE BONE ROLLER CLOSING NOTES PT IS ON BED.IV ALBUMIN IS COMPLETED.RESPIRATION IS EVEN AND NONLABORED.ENDORSED TO NETWORK CABLE INSTALLER RN FOR HOMER.
--- NOTE | 2018-07-21 19:15 | NUR ---
TELE/RN INITIAL NOTES RECEIVED PT IN BED, A/OX3, MALTESE SPEAKING. NO C/O PAIN AT THIS TIME. VPACING 100%, HR 60S ON TELEMONITOR. ON ROOM AIR, TOLERATING WELL, NO SOB NOTED. RFA G18 HEPLOCK INTACT AND PATENT. HOB ELEVATED. SAFETY MEASURES IN PLACED. CALL LIGHT WITHIN EASY REACH. WILL CONT TO MONITOR
[2018-07-22] VITALS (11 sets, daily range): BP systolic 107–126; BP diastolic 31–66
[2018-07-22] MEDS: ALBUMIN 25% 25 GM in PREMIX 1 EA IV SCH (02:21)
--- NOTE | 2018-07-22 07:00 | NUR ---
RN NOTES PT IN STABLE CONDITION. NO ACUTE CHANGES THROUGHOUT SHIFT. ALL NEEDS ATTENDED. SAFETY MEASURES OBSERVED AT ALL TIMES. ENDORSED TO AM SHIFT RN FOR HOMER
[2018-07-22 07:19] LABS: BASOPHILS % (AUTO) 0.2 % (0.0-2.0); EOSINOPHILS % (AUTO) 2.8 % (0.0-6.0); HEMATOCRIT 21 % (33-45); LYMPHOCYTES # (AUTO) 0.4 /CMM (0.8-4.8); LYMPHOCYTES % (AUTO) 16.3 % (20.0-44.0); MEAN CORPUSCULAR HGB CONC 32 g/dl (31.0-36.0); MEAN CORPUSCULAR VOLUME 91 fL (82-100); MONOCYTES # (AUTO) 0.2 /CMM (0.1-1.30); MONOCYTES % (AUTO) 7.3 % (2.0-12.0); NEUTROPHILS # (AUTO) 1.9 /CMM (1.8-8.9); NEUTROPHILS % (AUTO) 73.4 % (43.0-81.0); PLATELET COUNT (AUTO) 104 /CMM (150-450); RED BLOOD CELL COUNT(AUTO) 2.29 MIL/uL (4.0-5.2); WHITE BLOOD COUNT (AUTO) 2.6 K/uL (4.3-11.0)
[2018-07-22 07:36] LABS: ALANINE AMINOTRANSFERASE 10 U/L (12-78); ALKALINE PHOSPHATASE 89 U/L (46-116); ASPARTATE AMINOTRANSFERASE 8 U/L (15-37); BILIRUBIN,TOTAL 0.4 mg/dL (0.2-1.0); CALCIUM, SERUM 8.3 mg/dL (8.5-10.1); CARBON DIOXIDE 20 mmol/L (21-32); CHLORIDE 111 mmol/L (98-107); CREATININE 1.4 mg/dL (0.6-1.3); GLUCOSE 132 mg/dL (74-106); POTASSIUM 5.1 mmol/L (3.5-5.1); SODIUM SERUM 141 mmol/L (136-145); TOTAL PROTEIN, SERUM 6.2 g/dL (6.4-8.2); UREA NITROGEN, BLOOD 39 mg/dL (7-18)
[2018-07-22 08:00] LABS: HEMOGLOBIN 6.6 g/dL (11.5-14.8)
--- NOTE | 2018-07-22 08:05 | NUR ---
CONTROL SYSTEMS ENG NOTE PATIENT'S HGB 6.6. PAGED ROUNDING DOCTOR AND AWAITING FOR RESPONSE. IF NO RESPONSE, WILL PAGE AGAIN.
[2018-07-22 08:38] LABS: BAND % (MANUAL) 2 % (0.0-5.0); EOSINOPHILS % (MANUAL) 1 % (0-4); LYMPHOCYTES % (MANUAL) 16 % (16-48); MONOCYTES % (MANUAL) 3 % (0-11.0); NEUTROPHILS % (MANUAL) 78 (42-76)
[2018-07-22] MEDS: CARVEDILOL 3.125 MG TABLET PO SCH ×2 (10:02→19:01)
[2018-07-22] MEDS: PANTOPRAZOLE 40 MG TABLET.DR PO SCH (10:03)
[2018-07-22] MEDS: BUMETANIDE (1 MG) 1 MG TABLET PO SCH (10:03)
[2018-07-22] MEDS: LEVOTHYROXINE SODIUM 50 MCG TABLET PO SCH (10:03)
--- NOTE | 2018-07-22 10:16 | NUR ---
EXCEPTIONAL CHILDREN'S TEACHER NOTE RECEIVED AN ORDER TO TRANSFUSE PATIENT WITH [facility] THIS MORNING AND HOLD FERRLICET TODAY. PER PHARMACIST, WE CANNOT HOLD PRESCRIPTION DRUGS, THAT CURRENT ORDER WILL NEED TO BE DISCONTINUED AND A NEW ORDER NEEDS TO BE PLACED FOR TOMORROW. PUT A NEW ORDER FOR FERRLICET 125MG IV Q24HR STARTING 07/23 UNTIL 07/26 SINCE ORIGINAL ORDER WAS FOR 5 DAYS AND PATIENT ALREADY RECEIVED ONE DOSE.
[2018-07-22] MEDS: Z GUARD REMEDY 2 OZ OINT TP SCH (13:14)
[2018-07-22 16:33] LABS: BASOPHILS % (AUTO) 0.3 % (0.0-2.0); EOSINOPHILS % (AUTO) 2.8 % (0.0-6.0); HEMATOCRIT 25 % (33-45); LYMPHOCYTES # (AUTO) 0.4 /CMM (0.8-4.8); LYMPHOCYTES % (AUTO) 13.1 % (20.0-44.0); MEAN CORPUSCULAR HGB CONC 32 g/dl (31.0-36.0); MEAN CORPUSCULAR VOLUME 91 fL (82-100); MONOCYTES # (AUTO) 0.2 /CMM (0.1-1.30); MONOCYTES % (AUTO) 5.8 % (2.0-12.0); NEUTROPHILS # (AUTO) 2.5 /CMM (1.8-8.9); PLATELET COUNT (AUTO) 99 /CMM (150-450); RED BLOOD CELL COUNT(AUTO) 2.77 MIL/uL (4.0-5.2); WHITE BLOOD COUNT (AUTO) 3.3 K/uL (4.3-11.0)
--- NOTE | 2018-07-22 17:50 | NUR ---
SHOE PARTS CASER NOTE SPOKE WITH DR. HERRERA, NOTIFIED HIM OF PATIENT'S CURRENT HEMOGLOBIN OF 8.0 POST TRANSFUSION. PER MD, NO MORE [facility]S NEEDED, BUT INFUSE FERRLICET 125MG IV NOW AND AGAIN IN THE MORNING AT 9AM.
[2018-07-22] MEDS ORDERED: SOD FERRIC GLUC 125 MG in IV NS 0.9% 100 ML IV ONE (18:00)
[2018-07-22] MEDS: BLOOD SUGAR DIAGNOSTIC 1 EACH STRIP IN SCH ×2 (18:26→22:03)
--- NOTE | 2018-07-22 19:15 | NUR ---
MATCH UP PERSON NOTE PATIENT RESTING IN BED IN STABLE CONDITION, NO RESPIRATORY DISTRESS OR COMPLAINT OF PAIN. ABLE TO MAKE NEEDS KNOWN. FAMILY AT BEDSIDE. IV SITE ON RIGHT FOREARM INTACT SALINE LOCK. BED IN LOW LOCKED POSITION, CALL LIGHT WITHIN REACH, ENDORSED TO COAL PULVERIZER OPERATOR NURSE FOR CONTINUITY OF CARE.
--- NOTE | 2018-07-22 21:30 | NUR ---
rn notes gave patient and report to sofia melgar
--- NOTE | 2018-07-22 21:40 | NUR ---
RN NOTES PT AWAKE AND RESTING IN BED. PT CAPE VERDEAN SPEAKER. NO APPARENT S/S OF PAIN, SOB OR DISTRESS AT THIS TIME. SAFETY PRECAUTIONS IN PLACE, BED IN LOWEST LOCKED POSITION, X2 SIDE RAILS UP AND CALL LIGHT WITHIN REACH. WILL CONTINUE TO MONITOR.
[2018-07-23] VITALS: BP 120/51
[2018-07-23 04:00] VITALS: BP 118/48
--- NOTE | 2018-07-23 06:07 | NUR ---
RN NOTES PT AWAKE AND RESTING IN BED. PT CAYMAN ISLANDER SPEAKER. NO APPARENT S/S OF PAIN, SOB OR DISTRESS OVERNIGHT. PT WILL HAVE US GUIDED PARACENTESIS TODAY CONSENT SIGNED AND IN CHART. ALL PATIENT NEEDS MET OVERNIGHT. SAFETY PRECAUTIONS IN PLACE, BED IN LOWEST LOCKED POSITION, X2 SIDE RAILS UP AND CALL LIGHT WITHIN REACH. WILL ENDORSE TO DAY SHIFT NURSE FOR CONTINUITY OF CARE.
[2018-07-23 06:27] LABS: BASOPHILS % (AUTO) 0.2 % (0.0-2.0); EOSINOPHILS % (AUTO) 3.2 % (0.0-6.0); HEMATOCRIT 25 % (33-45); HEMOGLOBIN 7.8 g/dL (11.5-14.8); LYMPHOCYTES # (AUTO) 0.5 /CMM (0.8-4.8); LYMPHOCYTES % (AUTO) 14.5 % (20.0-44.0); MEAN CORPUSCULAR HGB CONC 32 g/dl (31.0-36.0); MEAN CORPUSCULAR VOLUME 90 fL (82-100); MONOCYTES # (AUTO) 0.2 /CMM (0.1-1.30); MONOCYTES % (AUTO) 6.4 % (2.0-12.0); NEUTROPHILS # (AUTO) 2.6 /CMM (1.8-8.9); NEUTROPHILS % (AUTO) 75.7 % (43.0-81.0); PLATELET COUNT (AUTO) 104 /CMM (150-450); RED BLOOD CELL COUNT(AUTO) 2.74 MIL/uL (4.0-5.2); WHITE BLOOD COUNT (AUTO) 3.4 K/uL (4.3-11.0)
[2018-07-23 06:33] LABS: ALANINE AMINOTRANSFERASE 9 U/L (12-78); ALBUMIN 2.8 g/dL (3.4-5.0); ALKALINE PHOSPHATASE 96 U/L (46-116); ASPARTATE AMINOTRANSFERASE 8 U/L (15-37); BILIRUBIN,TOTAL 0.7 mg/dL (0.2-1.0); CALCIUM, SERUM 8.4 mg/dL (8.5-10.1); CARBON DIOXIDE 21 mmol/L (21-32); CHLORIDE 111 mmol/L (98-107); CREATININE 1.5 mg/dL (0.6-1.3); GLUCOSE 127 mg/dL (74-106); POTASSIUM 4.7 mmol/L (3.5-5.1); SODIUM SERUM 141 mmol/L (136-145); TOTAL PROTEIN, SERUM 6.3 g/dL (6.4-8.2); UREA NITROGEN, BLOOD 37 mg/dL (7-18)
[2018-07-23] MEDS: BLOOD SUGAR DIAGNOSTIC 1 EACH STRIP IN SCH ×2 (06:42→12:50)
[2018-07-23] MEDS ORDERED: LEVOTHYROXINE SODIUM 50 MCG TABLET PO SCH (07:30)
[2018-07-23 08:00] VITALS: BP 114/40
[2018-07-23] MEDS: PANTOPRAZOLE 40 MG TABLET.DR PO SCH (08:20)
[2018-07-23] MEDS: Z GUARD REMEDY 2 OZ OINT TP SCH (08:21)
--- NOTE | 2018-07-23 08:41 | NUR ---
EXHIBITS CURATOR NOTE NOTIFIED DOCTOR SHARON OF PATIENT'S LOW DIASTOLIC BLOOD PRESSURE, 40. PER MD, OK TO HOLD COREG AND BUMEX FOR NOW AND ADMINISTER AFTER PARACENTESIS.
[2018-07-23] MEDS ORDERED: CARV3.122 PO (08:49)
[2018-07-23] MEDS ORDERED: ONDA4VIA23 PO (08:49)
[2018-07-23] MEDS ORDERED: LACT10SO6 PO (08:49)
[2018-07-23] MEDS ORDERED: ALLA266C2 TP (08:49)
[2018-07-23] MEDS ORDERED: PANT40TA2 PO (08:49)
[2018-07-23] MEDS ORDERED: BUME1TAB4 PO (08:49)
[2018-07-23] MEDS ORDERED: LEVO50TA PO (08:49)
[2018-07-23 12:00] VITALS: BP 119/38
[2018-07-23] MEDS ORDERED: SOD FERRIC GLUC 125 MG in IV NS 0.9% 100 ML IV SCH (14:00)
--- NOTE | 2018-07-23 14:00 | NUR ---
TASIA RN NOTE PATIENT NOTIFIED THE [facility] MACHINE STEMMER THIS MORNING AROUND 10AM THAT SHE IS MISSING HER LOWER DENTURES. SHE REMEMBERS REMOVING THEM FROM HER MOUTH LAST NIGHT 07/22/18 AND PLACING THEM IN THE BLUE DENTURE CUP ON BEDSIDE TABLE, BUT DOES NOT REMEMBER SEEING THE DENTURES OR THE DENTURE CUP IN THE MORNING. SEARCHED FOR DENTURES THOROUGHLY WITH HELP OF 2 OTHER STAFF MEMBERS IN PATIENT'S OLD ROOM 115-2, PATIENT'S CURRENT ROOM 108, CHECKED LINEN AND TRASH BINS, BED AND BEDSHEETS, DRAWERS AND PATIENT'S BELONGINGS BAGS. DENTURES WERE NOWHERE TO BE SEEN. CONTACTED [facility] WHO SEARCHED FOR DENTURES IN THEIR WORK AREA. EVS ALSO CONTACTED OUTSIDE [employer] IN CASE DENTURES WERE FOUND IN THEIR WORK PLACE. ALSO CHECKED KITCHEN IN CASE DENTURE CUP WAS PLACED ON BREAKFAST TRAY AND TAKEN TO KITCHEN WITH THE TRAY BY ACCIDENT. DENTURES COULD NOT BE FOUND IN KITCHEN EITHER. CALLED EXTRACTION SUPERVISOR NURSE WHO DOES NOT KNOW WHAT COULD HAVE HAPPENED TO THEM. LEFT VOICEMAILS TO OTHER EXTRACTION SUPERVISOR NURSE AND MED ASST WHO ALSO TOOK CARE OF THE PATIENT. NO CALL BACK YET. CALLED FAMILY OF PATIENT ([id number] AND SHE SAID SHE DOES NOT KNOW WHERE THE DENTURES ARE. SHE SAID THAT SHE DID NOT TAKE THE DENTURES HOME WITH HER FROM THE HOSPITAL. NOTIFIED NURSING TUNNEL HEADING SUPERVISOR AND GARMENT MENDER ALSO. BOTH ARE AWARE OF THE INCIDENT AND WILL CONTINUE WITH THE INVESTIGATION.
[2018-07-23] MEDS: BUMETANIDE (1 MG) 1 MG TABLET PO SCH (14:46)
[2018-07-23] MEDS: CARVEDILOL 3.125 MG TABLET PO SCH (14:47)
[2018-07-23] MEDS ORDERED: ALBUMIN 25% 12.5 GM in PREMIX 1 EA IV ONE (15:00)
--- NOTE | 2018-07-23 15:15 | NUR ---
TASIA RN NOTE PATIENT GETTING DISCHARGED TODAY, VITAL SIGNS STABLE AFTER PARACENTESIS, 5 LITERS OF FLUID REMOVED. REFUSING TO HAVE ANY PICTURES TAKEN. ALSO PATIENT STATES WITH TRANSLATION OF THAI SPEAKING FIELD PARTY MANAGER THAT SHE HAS ALREADY RECEIVED FLU AND PNEUMONIA VACCINES IN MAY.
[2018-07-23 16:00] VITALS: BP 102/63
--- NOTE | 2018-07-23 17:30 | NUR ---
TASIA RN NOTE PATIENT PREPARED FOR DISCHARGE. DISCHARGE PAPERWORK AND EXITCARE COMPLETE, PRINTED AND GIVEN TO PATIENT'S SON JANNA. EXPLAINED TO SON, STATES UNDERSTANDING. BELONGINGS LIST COMPLETED AND SIGNED. STILL REFUSING TO HAVE PICTURES TAKEN, ALSO SAYING DOES NOT NEED VACCINES. PATIENT'S VITAL SIGNS STABLE, NO RESPIRATORY DISTRESS OR COMPLAINT OF PAIN. PATIENT EAGER TO GO GO HOME. IV SITE ON RIGHT FOREARM REMOVED, NO BLEEDING OR SIGNS OF INFECTION. PATIENT LEFT THE FACILITY WITH PAPERWORK AND BELONGINGS IN STABLE CONDITION IN A WHEELCHAIR ESCORTED TO MAIN ENTRANCE BY JADE AND ACCOMPANIED BY SON JANNA AT 17:20.
== END 2018-07-23 17:20 | disposition home health service (06) | DRG 433 ==
LOC: ER 16:54 → MEDSG1 18:36 → TELE1 21:00 → MEDSG1 07-23 10:33
PROVIDERS: ADMIT Family Medicine; ATTEND Family Medicine
PROC: 0W9G3ZZ Drainage of Peritoneal Cavity, Percutaneous Approach (ICD-10-PCS; principal; 2018-07-20)
PROC: 30233N1 Transfusion of Nonautologous Red Blood Cells into Peripheral Vein, Percutaneous Approach (ICD-10-PCS; 2018-07-22)
PROC: 0W9G3ZZ Drainage of Peritoneal Cavity, Percutaneous Approach (ICD-10-PCS; 2018-07-23)
DX: K74.60 Unspecified cirrhosis of liver (principal); R18.8 Other ascites; K92.2 Gastrointestinal hemorrhage, unspecified; L03.311 Cellulitis of abdominal wall; I13.0 Hypertensive heart and chronic kidney disease with heart failure and stage 1 through stage 4 chronic kidney disease, or unspecified chronic kidney disease; I48.92 Unspecified atrial flutter; I50.22 Chronic systolic (congestive) heart failure; D63.8 Anemia in other chronic diseases classified elsewhere; E03.9 Hypothyroidism, unspecified; E11.22 Type 2 diabetes mellitus with diabetic chronic kidney disease; E11.319 Type 2 diabetes mellitus with unspecified diabetic retinopathy without macular edema; E11.42 Type 2 diabetes mellitus with diabetic polyneuropathy; E66.9 Obesity, unspecified; Z68.31 Body mass index [BMI] 31.0-31.9, adult; E83.51 Hypocalcemia; E87.5 Hyperkalemia; E88.09 Other disorders of plasma-protein metabolism, not elsewhere classified; F03.90 Unspecified dementia, unspecified severity, without behavioral disturbance, psychotic disturbance, mood disturbance, and anxiety; H35.30 Unspecified macular degeneration; H40.9 Unspecified glaucoma; K42.9 Umbilical hernia without obstruction or gangrene; I25.119 Atherosclerotic heart disease of native coronary artery with unspecified angina pectoris; I25.2 Old myocardial infarction; I27.29 Other secondary pulmonary hypertension; I48.2 Chronic atrial fibrillation; K21.9 Gastro-esophageal reflux disease without esophagitis; M79.7 Fibromyalgia; M81.0 Age-related osteoporosis without current pathological fracture; R32 Unspecified urinary incontinence; Z79.82 Long term (current) use of aspirin; Z86.73 Personal history of transient ischemic attack (TIA), and cerebral infarction without residual deficits; Z87.11 Personal history of peptic ulcer disease; Z90.49 Acquired absence of other specified parts of digestive tract; Z95.0 Presence of cardiac pacemaker; Z95.1 Presence of aortocoronary bypass graft; Z96.659 Presence of unspecified artificial knee joint; Z98.61 Coronary angioplasty status; N18.3 Chronic kidney disease, stage 3 (moderate)
CPT/HCPCS: 36415; 71045-TC; 76942-TC; 80048-TC; 80053-TC; 82040-TC; 82962-TC; 83540-TC; 83735-TC; 84443-TC; 85025-TC; 85730-TC; 86850-TC; 86921-TC; 87070-TC; 87081-TC; 88305-TC; 88312-TC; 88342; 89051-TC; A4216; G0378; J2916; J3490; J7030; J7050; P9016-BL; P9047

== ENCOUNTER 2018-08-30 21:49 | Inpatient (IN) | payer MEDICARE, MEDICAID ==
[~2018-08-30] VITALS: Ht 152.4 cm; Wt 75.4 kg
[~2018-08-30 21:49] MED LIST changes: -ASPI-1169 PO; +CARV3.12 PO; -Isosorbide Mononitrate (30MG) PO; +LACT10SO PO; +LEVO50TA8 PO; +NITR0.4T48 SL; -Nitroglycerin SL; +PANT40TA2 PO; +PANT40TA4 PO; -PANT40VI PO; -ZOLP5TAB2 PO
--- NOTE | 2018-08-30 22:00 | NUR ---
PT BIBRA FOR PARACENTESIS, ABD DISTENSION AND SOB. PT AOX3. LITHUANIAN SPEAKING. PT ON MONITOR IN BED 3. WILL CONTINUE TO MONITOR.
--- NOTE | 2018-08-30 22:26 | NUR ---
PHLEB AT BEDSIDE FOR BLOOD DRAW
[2018-08-30 22:37] LABS: BASOPHILS % (AUTO) 0.5 % (0.0-2.0); EOSINOPHILS % (AUTO) 2.1 % (0.0-6.0); HEMATOCRIT 25 % (33-45); HEMOGLOBIN 7.8 g/dL (11.5-14.8); LYMPHOCYTES # (AUTO) 0.4 /CMM (0.8-4.8); LYMPHOCYTES % (AUTO) 9.5 % (20.0-44.0); MEAN CORPUSCULAR HGB CONC 31 g/dl (31.0-36.0); MEAN CORPUSCULAR VOLUME 92 fL (82-100); MONOCYTES # (AUTO) 0.3 /CMM (0.1-1.30); NEUTROPHILS # (AUTO) 3.8 /CMM (1.8-8.9); NEUTROPHILS % (AUTO) 81.9 % (43.0-81.0); PLATELET COUNT (AUTO) 167 /CMM (150-450); RED BLOOD CELL COUNT(AUTO) 2.78 MIL/uL (4.0-5.2); WHITE BLOOD COUNT (AUTO) 4.6 K/uL (4.3-11.0)
[2018-08-30 22:50] LABS: ALANINE AMINOTRANSFERASE 10 U/L (12-78); ALBUMIN 2.9 g/dL (3.4-5.0); ALKALINE PHOSPHATASE 135 U/L (46-116); ASPARTATE AMINOTRANSFERASE 10 U/L (15-37); BILIRUBIN,DIRECT 0.2 mg/dL (0.0-0.2); BILIRUBIN,TOTAL 0.4 mg/dL (0.2-1.0); CARBON DIOXIDE 24 mmol/L (21-32); CHLORIDE 106 mmol/L (98-107); CREATININE 1.4 mg/dL (0.6-1.3); GLUCOSE 229 mg/dL (74-106); LIPASE 270 U/L (73-393); POTASSIUM 4.2 mmol/L (3.5-5.1); SODIUM SERUM 138 mmol/L (136-145); TOTAL PROTEIN, SERUM 8.2 g/dL (6.4-8.2); UREA NITROGEN, BLOOD 33 mg/dL (7-18)
[2018-08-31] VITALS (8 sets, daily range): BP systolic 120–136; BP diastolic 47–66
[2018-08-31] MEDS ORDERED: ONDANSETRON HCL/PF - ER 4 MG/2 ML VIAL IV ONE
[2018-08-31] MEDS ORDERED: ONDANSETRON HCL/PF 4 MG/2 ML VIAL ONE (00:22)
--- NOTE | 2018-08-31 00:46 | NUR ---
REPORT GIVEN TO BHARGAVI AGOSTO FOR HOMER
--- NOTE | 2018-08-31 01:10 | NUR ---
MS RN OPENING NOTES: RECEIVED PT ON ROOM AIR AND IS TOLERATING WELL. NO SOB NOTED. NO S/S OF DISTRESS. PT HAS IV ON R HAND #20G AND IS PATENT AND INTACT. CURRENTLY H/L. PT TURKISH SPEAKING ONLY AND IS A/OX4. BED KEPT IN LOW, LOCKED POSITION, AND SIDE RAILS X 2UP. BED ALARM ACTIVATED. WILL CONTINUE TO MONITOR PT.
[2018-08-31 02:31] LABS: MAGNESIUM 1.7 mg/dL (1.8-2.4)
--- NOTE | 2018-08-31 02:49 | NUR ---
MS RN NOTES: CALLED LAB TO F/U ON TYPE AND SCREEN. PER IMELDA, MOST LIKELY WILL HAVE TO ORDER BLOOD. SHE WILL CALL BACK FOR CONFIRMATION.
[2018-08-31] MEDS ORDERED: NITROGLYCERIN 0.4 MG/TAB BOTTLE SL PRN (03:00)
--- NOTE | 2018-08-31 05:30 | NUR ---
MS RN NOTES: SPOKE WITH DR. HERRERA. INFORMED HIM OF ALBUMIN, IRON, MAGNESIUM LEVELS. GOT ORDER FOR MAGNESIUM 2GM IV TODAY AND TOMORROW. ALSO GOT ORDER FOR FERRLECIT 125MG 3 BAGS, ACCUCHEKS ACHS MODERATE SLIDING SCALE, TYLENOL 500MG PO Q8HR PRN, PT/OT EVAL, ALBMIN 25% IV Q6HR TOTAL OF 5 BAGS, AND PARACENTESIS OF 10 LITERS. ALSO CONFIRMED WITH HGB 7.8L, MD STILL WANTS TO TRANSFUSE 2 UNITS ONCE BLOOD IS READY.
[2018-08-31] MEDS: Magnesium 1GM/D5W 100ML PREMIX PIGGYBACK IV SCH (05:59)
[2018-08-31] MEDS ORDERED: *INSULIN REGULAR(HUMULIN R)HUM 100 UNIT/ML VIAL SQ PRN (06:00)
[2018-08-31] MEDS ORDERED: DEXTROSE 50%-WATER 50 ML DISP.SYRIN IV PRN (06:00)
[2018-08-31] MEDS ORDERED: ACETAMINOPHEN 325 MG TABLET PO PRN (06:00)
[2018-08-31] MEDS: BLOOD SUGAR DIAGNOSTIC 1 EACH STRIP VI SCH ×4 (06:53→21:15)
[2018-08-31] MEDS: INSULIN REGULAR, HUMAN 100 UNIT/ML 3 ML VIAL SQ PRN ×3 (06:53→17:46)
--- NOTE | 2018-08-31 07:30 | NUR ---
RN MS NOTES PT IN BED, AWAKE, ALERT AND ORIENTED, ABLE TO MAKE NEEDS KNOWN, NO COMPLAINT OF PAIN OR ANY DISCOMFORT, RESPIRATIONS NORMAL, KEPT HEAD OF BED ELEVATED, PLAN OF CARE DISCUSSED WITH PT.
--- NOTE | 2018-08-31 07:47 | NUR ---
MS RN CLOSING NOTES: ALL NEEDS WERE ATTENDED AND ANTICIPATED FOR. PT KEPT CLEAN, DRY, AND COMFORTABLE. PT RESTING IN BED COMFORTABLY. PT HAS IV AND IS BEING INFUSED WITH MAG SULFATE 100ML/HR. 2ND BAG ENDORSED TO AM NURSE. PT STATELESS SPEAKING ONLY. BED ALARM ACTIVATED. CONSENTS SIGNED BY PATIENT AND PLACED IN CHART. BED KEPT IN LOW, LOCKED POSITION, AND SIDE RAILS X 2UP. ENDORSED TO AM NURSE FOR HOMER.
[2018-08-31] MEDS ORDERED: LACTULOSE 10 G/15 ML UDC (PYXIS) PO PRN ×2 (08:30)
[2018-08-31] MEDS ORDERED: ACETAMINOPHEN 650 MG/20.3 ML UDC NG PRN (08:30)
[2018-08-31] MEDS ORDERED: ONDANSETRON HCL/PF 4 MG/2 ML VIAL IJ PRN (08:30)
[2018-08-31] MEDS ORDERED: ONDANSETRON HCL/PF 4 MG/2 ML VIAL IV PRN (08:30)
[2018-08-31] MEDS ORDERED: NITROGLYCERIN 0.4 MG/TAB BOTTLE SL SCH (08:30)
[2018-08-31] MEDS ORDERED: Z GUARD REMEDY 2 OZ OINT TP SCH (09:00)
[2018-08-31] MEDS ORDERED: BUMETANIDE (1 MG) 1 MG TABLET PO SCH ×2 (09:00)
[2018-08-31] MEDS ORDERED: CARVEDILOL 3.125 MG TABLET PO SCH (09:00)
[2018-08-31] MEDS ORDERED: PANTOPRAZOLE 40 MG TABLET.DR PO SCH (09:00)
--- NOTE | 2018-08-31 10:50 | NUR ---
WOUND CARE CONSULT: PT SEEN AFTER PARACENTESIS. PT NOTED TO HAVE SKIN STAINING WITH RESOLVING REDNESS TO SKIN FOLDS, RT HIP SCAR, VERY BONY SACRAL AREA, PRESENT ON ADMISSION. RECOMMENDATIONS MADE FOR SKIN PROTECTION AND SKIN CARE. DISCUSSED WITH NURSING STAFF. PT ON KALLIE ISOFLEX LOW AIRLOSS BED. WILL SEE PRMary Kate ELLIOTT IN AGREEMENT WITH PLAN OF CARE.
[2018-08-31] MEDS: LEVOTHYROXINE SODIUM 50 MCG TABLET PO SCH (10:51)
[2018-08-31] MEDS: PANTOPRAZOLE 40 MG TABLET.DR PO SCH (10:51)
[2018-08-31] MEDS: CARVEDILOL 3.125 MG TABLET PO SCH ×2 (10:51→17:54)
[2018-08-31] MEDS: ALBUMIN 25% 25 GM in PREMIX 1 EA IV SCH ×3 (10:51→20:09)
[2018-08-31 10:54] LABS: ABG BASE EXCESS -3.5 mmol/L; ABG PCO2 34.9 mmHg (35.0-45.0); ABG PH 7.396 (7.350-7.450); ABG PO2 75.8 mmHg (75.0-100.0); AaDO2 32.1 mmHg; COHb 0.6 % (0.5-1.5); MetHb 1.8 % (0.0-1.5); O2Hb 91.7 % (94.0-97.0); SITE, ABG Left Radial; VENT MODE, BG ROOM AIR
[2018-08-31] MEDS: NYSTATIN TOP POWDER 15 GM BOTTLE TP SCH ×2 (10:54→20:00)
[2018-08-31] MEDS: Z GUARD REMEDY 2 OZ OINT TP SCH (10:54)
--- NOTE | 2018-08-31 12:00 | NUR ---
RN MS NOTES PT IN BED, AWAKE, ALERT AND ORIENTED, NO COMPLAINT AT THIS TIME, BREATHING PATTERN NORMAL, S/P US GUIDED PARACENTESIS, OBTAINED 8.3L, TOLERATED PROCEDURE WELL, NO BLEEDING NOTED TO ASPIRATION SITE AT LEFT ABDOMEN, SEEN BY DR. HERRERA TODAY, PLAN OF CARE DISCUSSED WITH PT, VERBALIZED UNDERSTANDING, SPECIMEN SENT TO LAB.
[2018-08-31 12:09] LABS: IRON, SERUM 23 ug/dl (50-175); TOTAL IRON BINDING CAPACITY 184 ug/dl (250-450)
[2018-08-31 12:24] LABS: FERRITIN 140 ng/mL (8-388)
[2018-08-31] MEDS: SOD FERRIC GLUC 125 MG in IV NS 0.9% 100 ML IV SCH (16:08)
--- NOTE | 2018-08-31 18:52 | NUR ---
RN MS NOTES Patient received blood transfusion around 182, vitals were stable before beginning transfusion. Vital signs remain stable after 15 minutes of transfusion.
--- NOTE | 2018-08-31 19:33 | NUR ---
MS RN OPENING NOTES: RECEIVED PT ON ROOM AIR AND IS TOLERATING WELL. PT ASLEEP AT THIS TIME AND IS BEING INFUSED WITH BLOOD AT THIS TIME AT 100ML/HR ON L AC. BED ALARM ACTIVATED. NO SOB NOTED. NO S/S OF DISTRESS. BED KEPT IN LOW, LOCKED POSITION, AND SIDE RAILS X 2UP. WILL CONTINUE TO MONITOR PT.
--- NOTE | 2018-08-31 21:35 | NUR ---
MS RN NOTES: BLOOD TRANSFUSION ENDED. PT TOLERATED WELL. NO REACTIONS NOTED.
--- NOTE | 2018-08-31 21:40 | NUR ---
MS RN NOTES: BLOOD SUGAR WAS 240. 4 UNITS OF INSULIN WAS ADMINISTERED. SNACK WAS PROVIDED.
--- NOTE | 2018-08-31 21:50 | NUR ---
MS RN NOTES: CALLED LAB. INFORMED THEM ABOUT 1 MORE UNIT PLACED FOR BLOOD TRANSFUSION. THEY WILL CALL WHEN BLOOD IS READY.
[2018-09-01] VITALS (7 sets, daily range): BP systolic 114–145; BP diastolic 43–75
[2018-09-01] MEDS: ALBUMIN 25% 25 GM in PREMIX 1 EA IV SCH ×2 (02:03→08:34)
--- NOTE | 2018-09-01 05:13 | NUR ---
MS RN NOTES: BLOOD TRANSFUSION ENDED. PT TOLERATED WELL. NO REACTIONS NOTED.
[2018-09-01] MEDS: Magnesium 1GM/D5W 100ML PREMIX PIGGYBACK IV SCH (05:16)
--- NOTE | 2018-09-01 06:31 | NUR ---
MS RN CLOSING NOTES: ALL NEEDS WERE ATTENDED AND ANTICIPATED FOR. PT KEPT CLEAN, DRY, AND COMFORTABLE. PT IS TAJIK SPEAKING ONLY. PT HAS IV AND IS BEING INFUSED WITH MAGNESIUM AT 100ML/HR. BED ALARM ACTIVATED. BED KEPT IN LOW, LOCKED POSITION, AND SIDE RAILS X 2UP. WILL ENDORSE TO AM NURSE FOR HOMER.
[2018-09-01] MEDS: BLOOD SUGAR DIAGNOSTIC 1 EACH STRIP VI SCH ×2 (06:41→12:08)
[2018-09-01] MEDS: INSULIN REGULAR, HUMAN 100 UNIT/ML 3 ML VIAL SQ PRN ×2 (06:42→12:08)
[2018-09-01] MEDS ORDERED: LEVOTHYROXINE SODIUM 50 MCG TABLET PO SCH (07:30)
--- NOTE | 2018-09-01 08:03 | NUR ---
MS RN OPENING NOTE RECEIVED PATIENT IN BED. SLEEPING, EASILY AROUSED WITH VERBAL STIMULI. ORIENTED X4. ON ROOM AIR, TOLERATING WELL, IN NO APPARENT DISTRESS OR DISCOMFORT AT THIS TIME. RESPIRATIONS EVEN AND UNLABORED. DENIES PAIN AND SOB AT THIS TIME. PATIENT IS ABLE TO COMMUNICATE NEEDS IN KOREAN. RIGHT HAND 20G IVC DL, LEFT AC 22G IVC, SL, PATENT AND INTACT. PATIENT KE[PT CLEAN AND COMFORTABLE. ALL NEEDS ATTENDED, SAFETY MEASURES IN PLACE, BED IN LOW LOCKED POSITION, SIDE RAILS UP X2, CALL LIGHT WITHIN EASY REACH. WILL CONTINUE TO MONITOR.
[2018-09-01 08:05] LABS: BASOPHILS % (AUTO) 0.3 % (0.0-2.0); HEMATOCRIT 26 % (33-45); HEMOGLOBIN 8.5 g/dL (11.5-14.8); LYMPHOCYTES # (AUTO) 0.5 /CMM (0.8-4.8); LYMPHOCYTES % (AUTO) 11.5 % (20.0-44.0); MEAN CORPUSCULAR HGB CONC 32 g/dl (31.0-36.0); MEAN CORPUSCULAR VOLUME 88 fL (82-100); MONOCYTES # (AUTO) 0.3 /CMM (0.1-1.30); MONOCYTES % (AUTO) 6.9 % (2.0-12.0); NEUTROPHILS # (AUTO) 3.2 /CMM (1.8-8.9); NEUTROPHILS % (AUTO) 78.3 % (43.0-81.0); PLATELET COUNT (AUTO) 115 /CMM (150-450); WHITE BLOOD COUNT (AUTO) 4.1 K/uL (4.3-11.0)
[2018-09-01 08:19] LABS: SERUM AMMONIA 48 umol/L (11-32)
[2018-09-01 08:23] LABS: ALANINE AMINOTRANSFERASE 8 U/L (12-78); ALKALINE PHOSPHATASE 83 U/L (46-116); ASPARTATE AMINOTRANSFERASE 10 U/L (15-37); BILIRUBIN,TOTAL 2.3 mg/dL (0.2-1.0); CALCIUM, SERUM 8.2 mg/dL (8.5-10.1); CARBON DIOXIDE 24 mmol/L (21-32); CHLORIDE 111 mmol/L (98-107); CREATININE 1.3 mg/dL (0.6-1.3); GLUCOSE 126 mg/dL (74-106); POTASSIUM 4.6 mmol/L (3.5-5.1); SODIUM SERUM 144 mmol/L (136-145); TOTAL PROTEIN, SERUM 6.3 g/dL (6.4-8.2); UREA NITROGEN, BLOOD 26 mg/dL (7-18)
[2018-09-01] MEDS: CARVEDILOL 3.125 MG TABLET PO SCH (08:33)
[2018-09-01] MEDS: LEVOTHYROXINE SODIUM 50 MCG TABLET PO SCH (08:33)
[2018-09-01] MEDS: PANTOPRAZOLE 40 MG TABLET.DR PO SCH (08:33)
[2018-09-01] MEDS: NYSTATIN TOP POWDER 15 GM BOTTLE TP SCH (08:37)
[2018-09-01] MEDS: Z GUARD REMEDY 2 OZ OINT TP SCH (08:37)
[2018-09-01] MEDS: SOD FERRIC GLUC 125 MG in IV NS 0.9% 100 ML IV SCH (12:00)
[2018-09-01] MEDS ORDERED: SILDENAFIL CITRATE 25 MG TABLET PO SCH (13:00)
[2018-09-01] MEDS ORDERED: SILDENAFIL CITRATE 20 MG TABLET PO SCH (13:30)
--- NOTE | 2018-09-01 15:30 | NUR ---
MS MIXER DIAMOND POWDER NOTE RECEIVED ORDER FOR DISCHARGE FROM DR. ORTIZ. PATIENT IS BEING DISCHARGED HOME. STABLE, VITAL SIGNS STABLE, ALERT ORIENTED X4. IN NO APPARENT DISTRESS OR DISCOMFORT, RESPIRATIONS EVEN AND UNLABORED. DISCHARGE PAPERWORK PREPARED VIA EXITCARE. REVIEWED AND DISCUSSED WITH PATIENT AND HER SON. INSTRUCTIONS GIVEN REGARDING DISCHARGE AND FOLLOW UP CARE, PATIENT VERBALIZED UNDERSTANDING OF ALL THE INSTRUCTIONS. VALUABLES FORM REVIEWED AND ACCOUNTED FOR. ALL FORMED SIGNED COPIED MADE PLACED IN CHART. PATIENT'S SKIN ASSESSED TODAY IN AM BUT PRIOR TO DC REFUSED PICTURES, STATING SHE DOES NOT HAVE ANYTHING ON HER BODY. PATIENT REFUSED FLU VACCINE OFFERED PRIOR TO DISCHARGE STATING SHE DOES NOT BELIEVE IN VACCINES, RISKS AND BENEFITS EXPLAINED. IV SITES DISCONTINUED FROM LEFT AC AND RIGHT HAND, TIPS INTACT. ID BAND REMOVED. PATIENT LEFT THE UNIT ON A WHEELCHAIR, ACCOMPANIED BY JADE SEXTON, AND PATIENT'S SON JANNA AT 1530
== END 2018-09-01 15:45 | disposition home or self-care (01) | DRG 433 ==
LOC: ER 21:50 → MED 08-31 00:19
PROVIDERS: ADMIT Family Medicine; ATTEND Family Medicine
PROC: 0W9G3ZZ Drainage of Peritoneal Cavity, Percutaneous Approach (ICD-10-PCS; principal; 2018-08-31)
PROC: 30233N1 Transfusion of Nonautologous Red Blood Cells into Peripheral Vein, Percutaneous Approach (ICD-10-PCS; 2018-08-31)
DX: K74.60 Unspecified cirrhosis of liver (principal); R18.8 Other ascites; I50.42 Chronic combined systolic (congestive) and diastolic (congestive) heart failure; N17.9 Acute kidney failure, unspecified; I48.92 Unspecified atrial flutter; I13.0 Hypertensive heart and chronic kidney disease with heart failure and stage 1 through stage 4 chronic kidney disease, or unspecified chronic kidney disease; K92.2 Gastrointestinal hemorrhage, unspecified; K72.90 Hepatic failure, unspecified without coma; Z86.73 Personal history of transient ischemic attack (TIA), and cerebral infarction without residual deficits; F43.10 Post-traumatic stress disorder, unspecified; F09 Unspecified mental disorder due to known physiological condition; N18.9 Chronic kidney disease, unspecified; D63.8 Anemia in other chronic diseases classified elsewhere; E65 Localized adiposity; E11.65 Type 2 diabetes mellitus with hyperglycemia; E66.9 Obesity, unspecified; Z68.32 Body mass index [BMI] 32.0-32.9, adult; R32 Unspecified urinary incontinence; E03.9 Hypothyroidism, unspecified; E83.51 Hypocalcemia; E11.319 Type 2 diabetes mellitus with unspecified diabetic retinopathy without macular edema; E11.40 Type 2 diabetes mellitus with diabetic neuropathy, unspecified; R63.0 Anorexia; E11.51 Type 2 diabetes mellitus with diabetic peripheral angiopathy without gangrene; Z95.0 Presence of cardiac pacemaker; K42.9 Umbilical hernia without obstruction or gangrene; Z95.1 Presence of aortocoronary bypass graft; E78.5 Hyperlipidemia, unspecified; H35.30 Unspecified macular degeneration; I25.119 Atherosclerotic heart disease of native coronary artery with unspecified angina pectoris; I25.2 Old myocardial infarction; I48.2 Chronic atrial fibrillation; E11.22 Type 2 diabetes mellitus with diabetic chronic kidney disease; M79.7 Fibromyalgia; M81.0 Age-related osteoporosis without current pathological fracture; Z82.49 Family history of ischemic heart disease and other diseases of the circulatory system; Z83.3 Family history of diabetes mellitus; Z87.11 Personal history of peptic ulcer disease; Z90.49 Acquired absence of other specified parts of digestive tract; Z98.61 Coronary angioplasty status
CPT/HCPCS: 36415; 36600; 71045-TC; 71250-TC; 76942-TC; 78582; 80048-TC; 80053-TC; 80076-TC; 82040-TC; 82140-TC; 82728-TC; 82962-TC; 83540-TC; 83690-TC; 83735-TC; 84443-TC; 85025-TC; 85730-TC; 86850-TC; 86921-TC; 87070-TC; 87081-TC; 88305-TC; 88312-TC; 89051-TC; 93970-TC; A4216; A9540; A9567; G0378; J1815; J2405; J2916; J3475; J7030; J7050; J7060; P9016-BL; P9047

== ENCOUNTER 2018-10-13 21:17 | Inpatient (IN) | payer MEDICARE, MEDICAID ==
[~2018-10-13] VITALS: Ht 152.4 cm; Wt 80.7 kg
--- NOTE | 2018-10-13 21:28 | NUR ---
[id number] FROM HOME C/C ABD DISTENSION REQUIRING DRAINAGE. DENIES PAIN. -SOB. -N/V/D. -CP. AFEBRILE. PT IS WOLOF-SPEAKING ONLY. IV ACCESS VOCATIONAL SERVICES SPECIALIST LAC 20G. NO ACUTE DISTRESS NOTED. READY FOR EVAL.
[2018-10-13 22:06] LABS: BASOPHILS % (AUTO) 0.8 % (0.0-2.0); EOSINOPHILS % (AUTO) 3.6 % (0.0-6.0); HEMATOCRIT 25 % (33-45); HEMOGLOBIN 7.6 g/dL (11.5-14.8); LYMPHOCYTES # (AUTO) 0.4 /CMM (0.8-4.8); LYMPHOCYTES % (AUTO) 10.2 % (20.0-44.0); MEAN CORPUSCULAR HGB CONC 31 g/dl (31.0-36.0); MEAN CORPUSCULAR VOLUME 92 fL (82-100); MONOCYTES # (AUTO) 0.2 /CMM (0.1-1.30); MONOCYTES % (AUTO) 6.4 % (2.0-12.0); PLATELET COUNT (AUTO) 131 /CMM (150-450); RED BLOOD CELL COUNT(AUTO) 2.67 MIL/uL (4.0-5.2); WHITE BLOOD COUNT (AUTO) 3.8 K/uL (4.3-11.0)
[2018-10-13 22:17] LABS: CALCIUM, SERUM 8.4 mg/dL (8.5-10.1); CARBON DIOXIDE 20 mmol/L (21-32); CHLORIDE 111 mmol/L (98-107); CREATININE 1.3 mg/dL (0.6-1.3); GLUCOSE 227 mg/dL (74-106); SODIUM SERUM 141 mmol/L (136-145); UREA NITROGEN, BLOOD 37 mg/dL (7-18)
--- NOTE | 2018-10-13 23:40 | NUR ---
Patient is resting comfortably in bed with eyes closed. Easily aroused. VSS
[2018-10-14] VITALS (7 sets, daily range): BP systolic 113–132; BP diastolic 45–60
--- NOTE | 2018-10-14 00:14 | NUR ---
REPORT GIVEN TO BHARGAVI MOREL FOR HOMER.
--- NOTE | 2018-10-14 00:20 | NUR ---
pt transfered to via [facility] with emt.
--- NOTE | 2018-10-14 01:20 | NUR ---
CONCRETE BLOCK MASONDATA GOVERNANCE CONSULTANT NOTES RECEIVED PT FROM ER VIA LINDA. PT A/O X3, KYRGYZ SPEAKING, AND ABLE TO MAKE NEEDS KNOWN. RESPIRATION EVEN AND NON LABORED WITH NO ACUTE RESPIRATORY DISTRESS, NO SHORTNESS OF BREATH PRESENT. HEAD OF BED ELEVATED. PT ON TELE MONITOR WITH V-PACING @65. SKIN WARM AND DRY TO TOUCH. IV SITE #20G LEFT FOREARM, PATENT AND INTACT, SL. ORIENTED PATIENT TO UNIT AND STAFF. CALL LIGHT WITHIN REACH. WILL CONTINUE TO MONITOR.
--- NOTE | 2018-10-14 01:30 | NUR ---
GALLERY DIRECTOR NOTES PT REFUSED PICTURES TO BE TAKEN OF PROBLEM AREAS.
[2018-10-14] MEDS ORDERED: ONDANSETRON HCL/PF 4 MG/2 ML VIAL IVP PRN (02:30)
[2018-10-14] MEDS ORDERED: ACETAMINOPHEN 650 MG/20.3 ML UDC NG PRN (02:30)
[2018-10-14] MEDS ORDERED: NITROGLYCERIN 0.4 MG/TAB BOTTLE SL PRN (02:30)
[2018-10-14] MEDS ORDERED: ALBUMIN 25% 25 GM in PREMIX 1 EA IV SCH (04:00)
[2018-10-14] MEDS: NYSTATIN TOP POWDER 15 GM BOTTLE TP SCH ×2 (06:00→17:18)
[2018-10-14 06:29] LABS: BASOPHILS % (AUTO) 0.2 % (0.0-2.0); EOSINOPHILS % (AUTO) 2.7 % (0.0-6.0); HEMATOCRIT 23 % (33-45); HEMOGLOBIN 7.3 g/dL (11.5-14.8); LYMPHOCYTES # (AUTO) 0.5 /CMM (0.8-4.8); LYMPHOCYTES % (AUTO) 13.5 % (20.0-44.0); MEAN CORPUSCULAR HGB CONC 31 g/dl (31.0-36.0); MEAN CORPUSCULAR VOLUME 92 fL (82-100); MONOCYTES # (AUTO) 0.3 /CMM (0.1-1.30); MONOCYTES % (AUTO) 7.3 % (2.0-12.0); NEUTROPHILS # (AUTO) 2.8 /CMM (1.8-8.9); NEUTROPHILS % (AUTO) 76.3 % (43.0-81.0); PLATELET COUNT (AUTO) 113 /CMM (150-450); RED BLOOD CELL COUNT(AUTO) 2.54 MIL/uL (4.0-5.2); WHITE BLOOD COUNT (AUTO) 3.7 K/uL (4.3-11.0)
--- NOTE | 2018-10-14 06:41 | NUR ---
ENGLISH AND READING INSTRUCTOR NOTES ALBUMIN AND NYSTATIN WERE NOT GIVEN, MEDICATION NOT AVAILABLE. NURSE CIRCULAR SAW OPERATOR INFORMED THAT MEDICATION IS UNAVAILABLE.
[2018-10-14 06:57] LABS: THYROID STIMULATING HORMONE 4.451 uIU/mL (0.358-3.74)
[2018-10-14 07:03] LABS: CALCIUM, SERUM 8.3 mg/dL (8.5-10.1); CARBON DIOXIDE 19 mmol/L (21-32); CHLORIDE 110 mmol/L (98-107); CREATININE 1.3 mg/dL (0.6-1.3); GLUCOSE 134 mg/dL (74-106); MAGNESIUM 1.9 mg/dL (1.8-2.4); POTASSIUM 4.9 mmol/L (3.5-5.1); SODIUM SERUM 139 mmol/L (136-145); UREA NITROGEN, BLOOD 35 mg/dL (7-18)
[2018-10-14 07:08] LABS: IRON, SERUM 25 ug/dl (50-175); TOTAL IRON BINDING CAPACITY 183 ug/dl (250-450)
--- NOTE | 2018-10-14 07:08 | NUR ---
SR. MANAGER MARKETINGJANITOR HELPER NOTES PT IN BED SLEEPING BUT EASILY AWOKEN VERBALLY OR BY TOUCH. PT A/O X3, BELGIAN SPEAKING, AND ABLE TO MAKE NEEDS KNOWN. RESPIRATION EVEN AND NON LABORED WITH NO ACUTE RESPIRATORY DISTRESS OR SOB NOTED THROUGHOUT SHIFT. HEAD OF BED ELEVATED. PT ON TELE MONITOR WITH V-PACING @68. SKIN WARM AND DRY TO TOUCH. IV SITE #20G LEFT FOREARM, PATENT AND INTACT, SL. NO COMPLAINTS OF PAIN AT THIS TIME. CALL LIGHT WITHIN REACH. WILL ENDORSE TO ONCOMING NURSE FOR HOMER. Addendum: 10/14/18 at 0710 by ADRIEL VELEZ RN CLOSING NOTES
--- NOTE | 2018-10-14 07:30 | NUR ---
TELE/RN NOTE THE PATIENT ALERT AND ORIENTED X3. IN ROOM AIR AND SATURATION IS AT 96%. DENIES SOB. RESPIRATION REGULAR AND UNLABORED. DENIES PAIN. PATIENT V PACING AT 98. LFA G 20 PATENT AND SALINE LOCKED. BED LOW AND LOCKED. SIDE RAILS UP X3. CALL LIGHT WITHIN REACH. WILL CONTINUE TO MONITOR.
[2018-10-14] MEDS: LEVOTHYROXINE SODIUM 50 MCG TABLET PO SCH (08:58)
[2018-10-14] MEDS: PANTOPRAZOLE 40 MG TABLET.DR PO SCH (08:58)
[2018-10-14] MEDS: BUMETANIDE (1 MG) 1 MG TABLET PO SCH (08:59)
[2018-10-14] MEDS: Z GUARD REMEDY 2 OZ OINT TP SCH (09:00)
[2018-10-14] MEDS: CARVEDILOL 3.125 MG TABLET PO SCH ×2 (09:00→17:17)
[2018-10-14] MEDS: ALBUMIN 25% 25 GM in PREMIX 1 EA IV SCH ×2 (10:10→17:40)
[2018-10-14] MEDS: SOD FERRIC GLUC 125 MG in IV NS 0.9% 100 ML IV SCH (16:31)
--- NOTE | 2018-10-14 17:57 | NUR ---
TELE/RN NOTE THE PATIENT ALERT AND ORIENTED X3. IN ROOM AIR AND SATURATION IS AT 97%. DENIES SOB. RESPIRATION REGULAR AND UNLABORED. DENIES PAIN. THE PATIENT IN NO APPARENT DISTRESS. V-PACING SR 65. ABDOMEN SOFT AND NON-DISTENDED. LAC G 20 PATENT AND ALBUMIN IS INFUSING WITH NO S/S INFILTRATION. BED LOW AND LOCKED. SIDE RAILS UP X3. CALL LIGHT WITHIN REACH. WILL ENDORSE TO STAY CUTTER.
[2018-10-15] VITALS (8 sets, daily range): BP systolic 112–129; BP diastolic 50–59
--- NOTE | 2018-10-15 | NUR ---
EXPORT FREIGHT SPECIALIST NOTES AWAKE & RESPONSIVE. NOT IN ANY DISTRESS. NO SOB NOTED. DENIES ANY PAIN OR DISCOMFORT AT THIS TIME. ON TELE V-PACING @ 65 WITH IVF INFUSING WELL. MONITORED ACCORDINGLY. CALL LIGHT WITHIN REACH. BED IN LOWEST POSITION. SR UP X 3 WITH BED ALARM ON FOR SAFETY. REPORT GIVEN TO CINDY BURK FOR CONTINUITY OF CARE.
--- NOTE | 2018-10-15 00:15 | NUR ---
FACER OPERATOR NOTES Received report from BHARGAVI Erickson. Patient sleeping in bed, easily arousable. Breathing even and unlabored. Not in any distress. Tele monitor in place, V-pacing 65. Call murdock within reach. Bed in low, locked position. Will continue to monitor accordingly
[2018-10-15] MEDS: ALBUMIN 25% 25 GM in PREMIX 1 EA IV SCH ×3 (00:54→17:31)
[2018-10-15] MEDS: NYSTATIN TOP POWDER 15 GM BOTTLE TP SCH ×2 (05:57→17:58)
--- NOTE | 2018-10-15 06:57 | NUR ---
TELE/RN CLOSING NOTE Patient resting bed. Breathing even and unlabored. Not in any distress. No complaints of pain or discomfort as of this time. Tele monitor in place- V-Pacing 65. IV access in LAC g#20 intact and patent. All needs attended to. All due meds given as ordered. Call light within reach. Bed in low, locked position. Will endorse HOMER to oncoming RN
[2018-10-15 07:14] LABS: BASOPHILS % (AUTO) 0.4 % (0.0-2.0); EOSINOPHILS % (AUTO) 3.2 % (0.0-6.0); HEMATOCRIT 23 % (33-45); HEMOGLOBIN 7.2 g/dL (11.5-14.8); LYMPHOCYTES # (AUTO) 0.4 /CMM (0.8-4.8); LYMPHOCYTES % (AUTO) 16.4 % (20.0-44.0); MEAN CORPUSCULAR HGB CONC 31 g/dl (31.0-36.0); MEAN CORPUSCULAR VOLUME 92 fL (82-100); MONOCYTES # (AUTO) 0.2 /CMM (0.1-1.30); NEUTROPHILS # (AUTO) 1.6 /CMM (1.8-8.9); PLATELET COUNT (AUTO) 96 /CMM (150-450); RED BLOOD CELL COUNT(AUTO) 2.48 MIL/uL (4.0-5.2); WHITE BLOOD COUNT (AUTO) 2.2 K/uL (4.3-11.0)
[2018-10-15 07:20] LABS: CREATINE KINASE, TOTAL 19 U/L (26-192)
--- NOTE | 2018-10-15 07:25 | NUR ---
TELE/RN NOTE THE PATIENT ALERT AND ORIENTED X3. IN ROOM AIR AND DENIES SOB. RESPIRATION REGULAR AND UNLABORED. DENIES PAIN. THE PATIENT IN NO APPARENT DISTRESS. PATIENT V-PACING AT 65. LAC G 20 PATENT AND SALINE LOCKED. BED LOW AND LOCKED. SIDE RAILS UP X3. CALL LIGHT WITHIN REACH. WILL CONTINUE TO MONITOR.
[2018-10-15 07:34] LABS: ALANINE AMINOTRANSFERASE 7 U/L (12-78); ALBUMIN 2.8 g/dL (3.4-5.0); ALKALINE PHOSPHATASE 92 U/L (46-116); ASPARTATE AMINOTRANSFERASE 8 U/L (15-37); BILIRUBIN,TOTAL 0.6 mg/dL (0.2-1.0); CALCIUM, SERUM 8.4 mg/dL (8.5-10.1); CARBON DIOXIDE 21 mmol/L (21-32); CHLORIDE 112 mmol/L (98-107); CREATININE 1.2 mg/dL (0.6-1.3); GLUCOSE 103 mg/dL (74-106); MAGNESIUM 1.8 mg/dL (1.8-2.4); PHOSPHORUS 3.6 mg/dL (2.5-4.9); POTASSIUM 4.7 mmol/L (3.5-5.1); SODIUM SERUM 143 mmol/L (136-145); TOTAL PROTEIN, SERUM 6.4 g/dL (6.4-8.2); UREA NITROGEN, BLOOD 33 mg/dL (7-18)
[2018-10-15 08:34] LABS: LYMPHOCYTES % (MANUAL) 20 % (16-48); MONOCYTES % (MANUAL) 3 % (0-11.0); NEUTROPHILS % (MANUAL) 77 (42-76)
[2018-10-15] MEDS: PANTOPRAZOLE 40 MG TABLET.DR PO SCH (08:38)
[2018-10-15] MEDS: LEVOTHYROXINE SODIUM 50 MCG TABLET PO SCH (08:38)
[2018-10-15] MEDS: CARVEDILOL 3.125 MG TABLET PO SCH ×2 (08:38→16:25)
[2018-10-15] MEDS: BUMETANIDE (1 MG) 1 MG TABLET PO SCH (08:38)
--- NOTE | 2018-10-15 09:00 | NUR ---
RN NOTE MRI BRAIN WO CONTRAST WAS CANCELED DUE TO PATIENT HAS A PACEMAKER. DR HERRERA IS MADE AWARE.
[2018-10-15] MEDS: Z GUARD REMEDY 2 OZ OINT TP SCH (09:16)
[2018-10-15] MEDS ORDERED: Magnesium 1GM/D5W 100ML PREMIX PIGGYBACK IV ONE (09:30)
[2018-10-15] MEDS: Magnesium 1GM/D5W 100ML PREMIX 100 ML IV SCH ×2 (10:01→11:03)
--- NOTE | 2018-10-15 10:51 | NUR ---
TELE/RN NOTE RECEIVED ORDERS FROM DR HERRERA: PT AND OT EVALUATIONS, MAGNESIUM 2 GM IVPB, 1 UNIT PRBC. ALL THE ORDERS ARE READ BACK, VERIFIED. NOTED AND CARRIED OUT.
--- NOTE | 2018-10-15 15:00 | NUR ---
MS/RN NOTE THE PATIENT HAS BEEN SEE BY DR ESTRADA.
[2018-10-15] MEDS: SOD FERRIC GLUC 125 MG in IV NS 0.9% 100 ML IV SCH (15:57)
--- NOTE | 2018-10-15 16:25 | NUR ---
RN NOTE FERRLECIT DUE AT 1400 IS STARTED LATE DUE PHARMACY LATE DELIVERY.
--- NOTE | 2018-10-15 17:02 | NUR ---
RN NOTE THE PATIENT REFUSED EED DESPITE EXPLAINING RISKS AND BENEFITS MULTIPLE TIMES.
--- NOTE | 2018-10-15 18:06 | NUR ---
RN CLOSING NOTE THE PATIENT ALERT AND ORIENTED X3. IN ROOM AIR AND DENIES SOB. OXYGEN SATURATION IN ROOM AIR AT 96%. DENIES PAIN. IN NO APPARENT DISTRESS. LAC G 20 PATENT AND ALBUMIN INFUSING PER ORDER. NO S/S INFILTRATION NOTED. BEEF BREAKER WILL BE ENDORSED TO TRANSFUSE BLOOD PER ORDER. GOOD AND GENTLE SKIN CARE RENDERED. KEPT CLEAN, DRY AND COMFORTABLE. ALL NEEDS ATTENDED AND ANTICIPATED. BED LOW AND LOCKED. SIDE RAILS UP X3. CALL LIGHT WITHIN REACH. WILL ENDORSE TO BEEF BREAKER.
[2018-10-15 18:58] LABS: APPEARANCE,URINE SL CLOUDY (CLEAR); BILIRUBIN,URINE NEGATIVE (NEGATIVE); BLOOD, URINE TRACE Ery/uL (NEGATIVE); COLOR,URINE YELLOW (YELLOW); KETONES,URINE NEGATIVE (NEGATIVE); LEUKOCYTE ESTERASE ,URINE 1+ (NEGATIVE); NITRITE, URINE NEGATIVE (NEGATIVE); PH,URINE 5.5 (5.0-8.0); PROTEIN,URINE NEGATIVE (NEGATIVE); UGLUCOSE NEGATIVE (NEGATIVE); UROBILINOGEN,URINE 0.2 EU/dL (0.2)
[2018-10-15 19:04] LABS: BACTERIA,URINE 1+ /HPF (None Seen); RBC,URINE 0-2 /HPF (0-2); SQUAMOUS EPITHELIAL CELL,UR Few /HPF (None Seen)
[2018-10-15 19:16] LABS: CREATININE, URINE 14.2 MG/DL (30.0-125.0); URINE TOTAL PROTEIN 25.7 mg/dL (0-11.9)
--- NOTE | 2018-10-15 19:20 | NUR ---
MS/RN OPENING NOTES PT RECEIVED AWAKE, RESTING COMFORTABLY IN BED. CYPRIOT SPEAKING. ON ROOM AIR, BREATHING EVEN AND UNLABORED. DENIES SOB AND PAIN AT THIS TIME. DAY SHIFT RN REMINDED PT OF BLOOD TRANSFUSION TONIGHT. VERBALIZED UNDERSTANDING. IV TO LAC PATENT AND INTACT. BED IN LOW/LOCKED POSITION WITH CALL LIGHT IN REACH. BILATERAL UPPER SIDE RAILS IN PLACE. WILL CONTINUE TO MONITOR
[2018-10-15 19:35] LABS: EOSINOPHIL,URINE Few
--- NOTE | 2018-10-15 21:10 | NUR ---
MS/RN NOTES 1 UNIT PRBC INITIATED. VITALS SIGNS STABLE PRIOR TO ADMINISTRATION. WILL REMAIN WITH PT FOR THE FIRST 15MINS AND MONITOR FOR ADVERSE REACTIONS.
--- NOTE | 2018-10-15 21:30 | NUR ---
MS/RN NOTES PRBC TRANSFUSION ONGOING. NO ADVERSE REACTIONS NOTED. PT TOLERATING WELL. VITAL SIGNS STABLE
[2018-10-16 01:00] VITALS: BP 141/66
--- NOTE | 2018-10-16 01:00 | NUR ---
MS/RN NOTES 1 UNIT OF PRBC'S COMPLETED. VITAL SIGNS STABLE. NO C/O OF PAIN, NO S/S OF ACUTE DISTRESS NOTED. NO ADVERSE REACTIONS NOTED.
[2018-10-16] MEDS: ALBUMIN 25% 25 GM in PREMIX 1 EA IV SCH (01:25)
--- NOTE | 2018-10-16 02:00 | NUR ---
MS/RN NOTES ASSISTED PT TO RESTROOM. ESCORTED BACK TO BED. NO FURTHER NEEDS EXPRESSED AT THIS TIME.
[2018-10-16] MEDS: NYSTATIN TOP POWDER 15 GM BOTTLE TP SCH (06:03)
--- NOTE | 2018-10-16 07:30 | NUR ---
MS/RN CLOSING NOTES PT AWAKE, RESTING COMFORTABLY IN BED. HOB ELEVATED. BREATHING EVEN AND UNLABORED. DENIES SOB AND PAIN AT THIS TIME. 1 UNIT PRBC ADMINISTERED ORDERED, PT TOLERATED WELL. IV TO RAC PATENT AND INTACT. ASSISTED TO RESTROOM PRN. ALL NEEDS MET. NO SIGNIFICANT CHANGES OVERNIGHT. ANTICIPATING CT GUIDED PARACENTESIS. NEW CONSENT NEEDS TO BE SIGNED. DAY SHIFT RN AWARE. BED REMAINS IN LOW/LOCKED POSITION WITH CALL LIGHT IN REACH, BILATERAL UPPER SIDE RAILS IN PLACE. ENDORSED TO DAY SHIFT RN HOMER
--- NOTE | 2018-10-16 07:52 | NUR ---
MS RN OPENING NOTES RECEIVED PATIENT IN STABLE CONDITION. IN NO APPARENT DISTRESS. BEDSIDE RAILS ARE UPX2. BED IS LOCKED AND LOWERED. CALL LIGHT IS WITHIN REACH. IV LINE IS INTACT AND PATENT. WILL CONTINUE TO MONITOR PATIENT.
[2018-10-16 08:00] VITALS: BP 117/63
[2018-10-16] MEDS: BUMETANIDE (1 MG) 1 MG TABLET PO SCH (09:00)
[2018-10-16] MEDS: CARVEDILOL 3.125 MG TABLET PO SCH ×2 (09:00→16:56)
[2018-10-16] MEDS: PANTOPRAZOLE 40 MG TABLET.DR PO SCH (09:00)
[2018-10-16] MEDS: LEVOTHYROXINE SODIUM 50 MCG TABLET PO SCH (09:00)
[2018-10-16] MEDS: Z GUARD REMEDY 2 OZ OINT TP SCH (09:46)
[2018-10-16 13:11] LABS: PTH, INTACT 97 pg/mL (15-65)
[2018-10-16 16:56] VITALS: BP 131/50
--- NOTE | 2018-10-16 17:03 | NUR ---
MS RN CLOSING NOTES PATIENT DISCHARGED IN STABLE CONDITION. IN NO APPARENT DISTRESS. ALL NEEDS WERE MET. EXITCARE WAS SIGNED AND PROVIDED TO THE PATIENT. DR. HERRERA'S OFFICE PHONE NUMBER PROVIDED TO THE PATIENT. IV LINE AND ID BAND WERE REMOVED. BELONGINGS WERE CHECKED AND PROVIDED TO THE PATIENT. PATIENT WAS ESCORTED OUT OF THE FACILITY VIA WHEELCHAIR BY SON AND JADE OLIVAS.
[2018-10-18 11:09] LABS: *SPE ALPHA-1-GLOBULIN 0.2 g/dL (0.0-0.4); *SPE ALPHA-2-GLOBULIN 0.6 g/dL (0.4-1.0); *SPE BETA GLOBULIN 0.7 g/dL (0.7-1.3); *SPE GLOBULIN, TOTAL 3.1 g/dL (2.2-3.9); *SPE M-SPIKE Not Observed g/dL (Not Observed); *SPEGAMMA GLOBULIN 1.5 g/dL (0.4-1.8)
== END 2018-10-16 17:00 | disposition home or self-care (01) | DRG 432 ==
LOC: ER 21:19 → TELE 10-14 00:59 → MED 10-15 10:22
PROVIDERS: ADMIT Family Medicine; ATTEND Family Medicine
PROC: 0W9G3ZZ Drainage of Peritoneal Cavity, Percutaneous Approach (ICD-10-PCS; 2018-10-14)
PROC: 30233N1 Transfusion of Nonautologous Red Blood Cells into Peripheral Vein, Percutaneous Approach (ICD-10-PCS; principal; 2018-10-15)
PROC: 0W9G3ZZ Drainage of Peritoneal Cavity, Percutaneous Approach (ICD-10-PCS; 2018-10-16)
DX: K74.60 Unspecified cirrhosis of liver (principal); G92 Toxic encephalopathy; R18.8 Other ascites; I50.42 Chronic combined systolic (congestive) and diastolic (congestive) heart failure; I48.92 Unspecified atrial flutter; I13.0 Hypertensive heart and chronic kidney disease with heart failure and stage 1 through stage 4 chronic kidney disease, or unspecified chronic kidney disease; N17.9 Acute kidney failure, unspecified; D61.818 Other pancytopenia; K72.90 Hepatic failure, unspecified without coma; D63.8 Anemia in other chronic diseases classified elsewhere; E11.319 Type 2 diabetes mellitus with unspecified diabetic retinopathy without macular edema; E11.65 Type 2 diabetes mellitus with hyperglycemia; I27.29 Other secondary pulmonary hypertension; I36.1 Nonrheumatic tricuspid (valve) insufficiency; I25.119 Atherosclerotic heart disease of native coronary artery with unspecified angina pectoris; I48.2 Chronic atrial fibrillation; N18.9 Chronic kidney disease, unspecified; E66.9 Obesity, unspecified; Z68.34 Body mass index [BMI] 34.0-34.9, adult; R55 Syncope and collapse; W19.XXXA Unspecified fall, initial encounter; Y92.89 Other specified places as the place of occurrence of the external cause; E11.22 Type 2 diabetes mellitus with diabetic chronic kidney disease; E11.42 Type 2 diabetes mellitus with diabetic polyneuropathy; F03.90 Unspecified dementia, unspecified severity, without behavioral disturbance, psychotic disturbance, mood disturbance, and anxiety; F32.9 Major depressive disorder, single episode, unspecified; E03.9 Hypothyroidism, unspecified; E78.5 Hyperlipidemia, unspecified; E83.51 Hypocalcemia; F43.10 Post-traumatic stress disorder, unspecified; G89.29 Other chronic pain; H35.30 Unspecified macular degeneration; H40.9 Unspecified glaucoma; I25.2 Old myocardial infarction; Z95.0 Presence of cardiac pacemaker; Z95.1 Presence of aortocoronary bypass graft; Z96.659 Presence of unspecified artificial knee joint; Z98.61 Coronary angioplasty status; Z90.49 Acquired absence of other specified parts of digestive tract; Z87.11 Personal history of peptic ulcer disease; Z86.73 Personal history of transient ischemic attack (TIA), and cerebral infarction without residual deficits; Z82.49 Family history of ischemic heart disease and other diseases of the circulatory system; Z83.3 Family history of diabetes mellitus; M81.0 Age-related osteoporosis without current pathological fracture; M19.90 Unspecified osteoarthritis, unspecified site; M10.9 Gout, unspecified; M79.7 Fibromyalgia; K42.9 Umbilical hernia without obstruction or gangrene; K21.9 Gastro-esophageal reflux disease without esophagitis; K57.90 Diverticulosis of intestine, part unspecified, without perforation or abscess without bleeding; R32 Unspecified urinary incontinence; R41.2 Retrograde amnesia; Z79.890 Hormone replacement therapy; K58.9 Irritable bowel syndrome, unspecified; R26.81 Unsteadiness on feet
CPT/HCPCS: 36415; 70450-TC; 71045-TC; 73100-TC; 76942-TC; 80048-TC; 80053-TC; 81000-TC; 82040-TC; 82550-TC; 82570-TC; 83540-TC; 83605-TC; 83735-TC; 83970; 84100-TC; 84155; 84155-TC; 84165; 84300-TC; 84443-TC; 85025-TC; 85730-TC; 86850-TC; 86880-TC; 86921-TC; 87081-TC; 87086-TC; 87186-TC; 88305-TC; 88312-TC; 89051-TC; A4216; G0378; J2916; J3475; J7030; J7050; P9016-BL; P9047

== ENCOUNTER 2018-11-29 20:41 | Emergency (ER) | payer MEDICARE, MEDICAID ==
[~2018-11-29] VITALS: Ht 162.6 cm; Wt 54.4 kg
--- NOTE | 2018-11-29 20:55 | NUR ---
PT BIBRA FROM HOME. PT HAS HISTORY OF ASCITES AND STATES THE PRESSURE FROM STOMACH CAUSES SOB. BILATERAL BREATH SOUNDS NOTED, RESPIRATIONS EVEN AND UNLABORED. NO ACUTE DISTRESS NOTED AT THIS TIME. WILL CONTINUE TO MONITOR
--- NOTE | 2018-11-29 20:55 | NUR ---
MD AT BEDSIDE FOR EVALUATION
--- NOTE | 2018-11-29 21:04 | NUR ---
FAMILY AT BEDSIDE TO DISCUSS CARE
--- NOTE | 2018-11-29 21:20 | NUR ---
INFORMED FAMILY PT UNABLE TO HAVE DRAIN UNTIL MORNING. DR WU OFFERED FOR PT TO BE DISCHARGED AND RETURN IN MORNING. PT CLEARED FOR DISCHARGE. Patient discharged to home in stable condition. Written and verbal after care instructions given. Patient verbalizes understanding of instruction.
[2018-11-29] MEDS ORDERED: ONDANSETRON 4 MG TAB.RAPDIS ONE (21:30)
[2018-11-29] MEDS ORDERED: ONDANSETRON 4 MG TAB.RAPDIS SL ONE (21:30)
[2018-11-29 21:47] VITALS: BP 141/44
[2018-11-30] MEDS ORDERED: BUME1TAB4 PO (13:14)
[2018-11-30] MEDS ORDERED: PANT40TA4 PO (13:14)
[2018-11-30] MEDS ORDERED: LEVO50TA8 PO (13:14)
[2018-11-30] MEDS ORDERED: CARV3.12 PO (13:14)
[2018-11-30] MEDS ORDERED: ACET650T10 PO (13:14)
[2018-12-02] MEDS ORDERED: BUME1TAB4 PO (09:38)
[2018-12-02] MEDS ORDERED: ACET325T53 PO (09:38)
[2018-12-02] MEDS ORDERED: CARV3.122 PO (09:38)
[2018-12-02] MEDS ORDERED: ALLA266C2 TP (09:38)
[2018-12-02] MEDS ORDERED: PANT40TA2 PO (09:38)
[2018-12-02] MEDS ORDERED: CLOT15CR35 TP (09:38)
[2018-12-02] MEDS ORDERED: LEVO50TA PO (09:38)
== END 2018-11-29 21:47 | disposition home or self-care (01) ==
LOC: ER 20:42
DX: R18.8 Other ascites (principal); E11.22 Type 2 diabetes mellitus with diabetic chronic kidney disease; I12.0 Hypertensive chronic kidney disease with stage 5 chronic kidney disease or end stage renal disease; N18.6 End stage renal disease; G62.9 Polyneuropathy, unspecified; G89.29 Other chronic pain; M54.5 Low back pain; F43.10 Post-traumatic stress disorder, unspecified; Z86.73 Personal history of transient ischemic attack (TIA), and cerebral infarction without residual deficits; Z95.1 Presence of aortocoronary bypass graft; Z90.49 Acquired absence of other specified parts of digestive tract; Z96.651 Presence of right artificial knee joint
CPT/HCPCS: 99283; Q0162

== ENCOUNTER 2018-11-30 12:23 | Inpatient (IN) | payer MEDICARE, MEDICAID ==
[~2018-11-30] VITALS: Ht 170.2 cm; Wt 72.1 kg
--- NOTE | 2018-11-30 12:45 | NUR ---
patient sent by PMD Dr. Rose due to ascites. On room air, breathing evenly and unlabored. Connected to the monitor and pulse ox. Kept comfortable, will continue to monitor accordingly.
[2018-11-30 12:52] LABS: BASOPHILS % (AUTO) 0.5 % (0.0-2.0); EOSINOPHILS % (AUTO) 2.5 % (0.0-6.0); HEMATOCRIT 27 % (33-45); HEMOGLOBIN 8.4 g/dL (11.5-14.8); LYMPHOCYTES # (AUTO) 0.4 /CMM (0.8-4.8); LYMPHOCYTES % (AUTO) 10.4 % (20.0-44.0); MEAN CORPUSCULAR HGB CONC 31 g/dl (31.0-36.0); MEAN CORPUSCULAR VOLUME 95 fL (82-100); MONOCYTES # (AUTO) 0.2 /CMM (0.1-1.30); MONOCYTES % (AUTO) 5.4 % (2.0-12.0); NEUTROPHILS # (AUTO) 3.3 /CMM (1.8-8.9); NEUTROPHILS % (AUTO) 81.2 % (43.0-81.0); PLATELET COUNT (AUTO) 134 /CMM (150-450); RED BLOOD CELL COUNT(AUTO) 2.82 MIL/uL (4.0-5.2); WHITE BLOOD COUNT (AUTO) 4.1 K/uL (4.3-11.0)
[2018-11-30 13:06] LABS: CALCIUM, SERUM 8.8 mg/dL (8.5-10.1); CARBON DIOXIDE 26 mmol/L (21-32); CHLORIDE 106 mmol/L (98-107); CREATININE 1.4 mg/dL (0.6-1.3); GLUCOSE 159 mg/dL (74-106); POTASSIUM 5.1 mmol/L (3.5-5.1); SODIUM SERUM 141 mmol/L (136-145); UREA NITROGEN, BLOOD 44 mg/dL (7-18)
[2018-11-30 13:13] LABS: ALBUMIN 3.1 g/dL (3.4-5.0); BILIRUBIN,DIRECT 0.2 mg/dL (0.0-0.2); BILIRUBIN,TOTAL 0.6 mg/dL (0.2-1.0); TOTAL PROTEIN, SERUM 8.1 g/dL (6.4-8.2)
[2018-11-30] MEDS ORDERED: BUME1TAB4 PO (13:14)
[2018-11-30] MEDS ORDERED: ACET650T10 PO (13:14)
[2018-11-30] MEDS ORDERED: PANT40TA4 PO (13:14)
[2018-11-30] MEDS ORDERED: LEVO50TA8 PO (13:14)
[2018-11-30] MEDS ORDERED: CARV3.12 PO (13:14)
--- NOTE | 2018-11-30 13:14 | NUR ---
PAGED SHARON FOR ADMISSION
--- NOTE | 2018-11-30 13:19 | NUR ---
ASKED NURSING SUP FOR BED
--- NOTE | 2018-11-30 13:34 | NUR ---
GOT BED 119-1 NURSE IS TALON
--- NOTE | 2018-11-30 13:45 | NUR ---
radiologist at bedside for ultraosound guided paracentesis.
--- NOTE | 2018-11-30 14:08 | NUR ---
called [facility] and spoke to Bertha RN for ciera.
--- NOTE | 2018-11-30 15:55 | NUR ---
patient wheeled via gurney accompanied by EMT in no apparent distress noted.
[2018-11-30 16:00] VITALS: BP 131/60
--- NOTE | 2018-11-30 16:02 | NUR ---
MS RN NOTES RECEIVED REPORT FROM RNHAYDEN. PT ARRIVED ON UNIT ROOM 119-1. WILL CONT ADMITTING PATIENT.
--- NOTE | 2018-11-30 16:30 | NUR ---
MS RN NOTES PAGED DR HERRERA FOR ORDERS. GAVE ORDERS FOR LABS. AWARE HE NEEDS TO PROVIDE ADMITTING ORDERS.
[2018-11-30] MEDS ORDERED: ACETAMINOPHEN 325 MG TABLET PO PRN (18:00)
[2018-11-30 18:11] LABS: FREE PSA < 0.06 ng/mL; IRON, SERUM 32 ug/dl (50-175)
[2018-11-30 18:13] LABS: PROSTATE SPECIFIC ANTIGEN SCR < 0.13 ng/mL
[2018-11-30 18:26] LABS: MAGNESIUM 1.9 mg/dL (1.8-2.4)
--- NOTE | 2018-11-30 19:07 | NUR ---
MS RN NOTES PT RESTING IN BED, NOT IN DISTRESS AT THIS TIME. DR VARGHESE AWARE OF ADMITTING ORDERS. WILL ENDORSE TO PM NURSE FOR HOMER. PHARMACY TO BRING ALBUMIN
[2018-11-30] MEDS: ALBUMIN 25% 25 GM in PREMIX 1 EA IV SCH (19:46)
[2018-11-30 20:00] VITALS: BP 132/56
--- NOTE | 2018-11-30 20:45 | NUR ---
RN OPENING NOTES RECEIVED REPORT FROM STEVE BURK. PATIENT A/A/O X3, MOSTLY GREENLANDIC-SPEAKING BUT ABLE TO STATE PAIN & MAKE SOME NEEDS KNOWN. BREATHING EVEN & UNLABORED, TOLERATING ROOM AIR. DENIES ANY SOB OR DIFFICULTY BREATHING. BILATERAL RADIAL PULSES PRESENT. RIGHT HAND IV #22 INTACT & PATENT W/ DRESSING CDI, SALINE LOCKED. NO SIGNS OF INFILTRATION NOTED. SAFETY MEASURES IN PLACE W/ SIDE RAILS UP & BED ALARM ON. INSTRUCTED TO USE CALL LIGHT FOR ASSISTANCE. TURNED & REPOSITIONED FOR COMFORT. WILL CONTINUE TO MONITOR.
[2018-11-30 21:05] VITALS: BP 174/89
[2018-12-01] VITALS (9 sets, daily range): BP systolic 114–136; BP diastolic 50–86
[2018-12-01] MEDS: ALBUMIN 25% 25 GM in PREMIX 1 EA IV SCH ×3 (01:54→18:12)
--- NOTE | 2018-12-01 07:00 | NUR ---
RN AM SHIFT NOTE PATIENT AWAKE AND ALERT. LITHUANIAN SPEAKING, LAB CALLED W CRITICAL VALUE RN NOTIFED MD AND NEW ORDERS CARRIED OUT. MD INFORMED RN HE WILL BE ARRIVING AT THE UNIT TODAY WITHIN 30 MIN. MD ORDERED REPEAT PARACENTESIS SCHEDULED FOR 12/02. CONTINUE ALBUMIN TODAY AND ALSO CONTINUE AFTER PARACENTEIS ON 12/02. CONTINUE TO RESEARCH [facility], SAFETY MEASUES IN PLACE, CALL LGIHT WITHIN REACH, SIDE RAILS UP
[2018-12-01 07:12] LABS: BASOPHILS % (AUTO) 0.4 % (0.0-2.0); EOSINOPHILS % (AUTO) 3.3 % (0.0-6.0); HEMATOCRIT 22 % (33-45); LYMPHOCYTES # (AUTO) 0.4 /CMM (0.8-4.8); LYMPHOCYTES % (AUTO) 18.8 % (20.0-44.0); MEAN CORPUSCULAR HGB CONC 31 g/dl (31.0-36.0); MEAN CORPUSCULAR VOLUME 94 fL (82-100); MONOCYTES # (AUTO) 0.2 /CMM (0.1-1.30); MONOCYTES % (AUTO) 8.3 % (2.0-12.0); NEUTROPHILS # (AUTO) 1.4 /CMM (1.8-8.9); NEUTROPHILS % (AUTO) 69.2 % (43.0-81.0); PLATELET COUNT (AUTO) 89 /CMM (150-450); RED BLOOD CELL COUNT(AUTO) 2.35 MIL/uL (4.0-5.2)
[2018-12-01 07:27] LABS: HEMOGLOBIN 6.9 g/dL (11.5-14.8)
[2018-12-01 07:35] LABS: CALCIUM, SERUM 8.6 mg/dL (8.5-10.1); CARBON DIOXIDE 25 mmol/L (21-32); CHLORIDE 110 mmol/L (98-107); CREATININE 1.7 mg/dL (0.6-1.3); GLUCOSE 137 mg/dL (74-106); POTASSIUM 5.1 mmol/L (3.5-5.1); SODIUM SERUM 142 mmol/L (136-145); UREA NITROGEN, BLOOD 44 mg/dL (7-18)
[2018-12-01] MEDS ORDERED: diphenhydrAMINE HCL 50 MG/ML VIAL IV ONE (08:30)
[2018-12-01] MEDS ORDERED: ACETAMINOPHEN 325 MG TABLET PO ONE (08:30)
[2018-12-01] MEDS ORDERED: diphenhydrAMINE HCL 25 MG CAPSULE PO ONE (08:30)
[2018-12-01] MEDS: CARVEDILOL 3.125 MG TABLET PO SCH ×2 (09:03→17:00)
[2018-12-01] MEDS: BUMETANIDE (1 MG) 1 MG TABLET PO SCH (09:03)
[2018-12-01] MEDS: LEVOTHYROXINE SODIUM 50 MCG TABLET PO SCH (09:04)
[2018-12-01] MEDS: Z GUARD REMEDY 2 OZ OINT TP SCH (09:04)
[2018-12-01] MEDS: PANTOPRAZOLE 40 MG TABLET.DR PO SCH (09:04)
[2018-12-01] MEDS: CLOTRIMAZOLE 1% 15 GM TUBE TP SCH ×2 (09:04→17:56)
[2018-12-01 09:16] LABS: EOSINOPHILS % (MANUAL) 4 % (0-4); LYMPHOCYTES % (MANUAL) 14 % (16-48); MONOCYTES % (MANUAL) 6 % (0-11.0); NEUTROPHILS % (MANUAL) 76 (42-76)
[2018-12-01] MEDS ORDERED: ALBUMIN 25% 25 GM in PREMIX 1 EA IV SCH (09:30)
--- NOTE | 2018-12-01 10:26 | NUR ---
WOUND CARE CONSULT WOUND CARE RECEIVED CONSULT FOR ADMISSION. WOUND CARE WILL DEFER CONSULT AND TREATMENT PLANS TO PLASTIC SURGICAL TEAM WHO ARE CURRENTLY FOLLOWING THIS PATIENT. PATIENT WITH PAMELA AT 13, ALL PRESSURE ULCER PREVENTION MEASURES ARE NOTED TO BE IN PLACE. WILL SEE PRN.
--- NOTE | 2018-12-01 11:35 | NUR ---
RN NOTE PHARMACY CALLED TO INFORM RN THEY ARE STILL WORKING ON THE BLOOD TRANSFUSION ORDER. PATIENTS VITALS STABLE, CONTINUE TO MONITOR.
--- NOTE | 2018-12-01 19:00 | NUR ---
RN CLOSING NOTE PATIENT ALERT X4 MAURITIAN SPEAKING , IN GOOD SPIRITS AND PARTICIPATING IN CARE. MD BARNARD TRANSLATED WITH RN AT BEDSIDE TODAY. IV PATENT AND NO INFILTRATION. SAFETY MEASURES IN PLACE, CALL LIGHT WITHIN REACH. ALL MEDICATION TOLERATED WELL. MD AWARE OF LOW H/H AND GAVE NEW ORDERS. TRANSFUSED 1 UNIT OF BLOOD NO INTERACTIONS NOTED. MD ORDER TO CONTINUE ALBUMIN TODAY AND CONTINUE AFTER PARACENTESIS SCHEDULED TOMORROW FOR 929. PTT, CBC AND BMB TO BE DRAWN FOR TOMORROW. MD IMMANUEL PHONE [phone]
--- NOTE | 2018-12-01 19:30 | NUR ---
MS1 RN NOTES RECEIVED ON BED SLEEPING,AROUSABLE TO VERBAL STIMULI.BREATHING NORMAL.SALINE LOCK RIGHT HAND INTACT AND PATENT.CYPRIOT SPEAKING WITH LITTLE LAO.ABDOMEN DISTENDED BUT SOFT.FALL PRECAUTION OBSERVED DUE WEAKNESS,CALL LIGHT IN REACH,NEEDS ANTICIPATED.
[2018-12-02] MEDS: ALBUMIN 25% 25 GM in PREMIX 1 EA IV SCH ×2 (01:53→09:39)
[2018-12-02 04:00] VITALS: BP 109/57
--- NOTE | 2018-12-02 06:51 | NUR ---
MS1 RN NOTES SLEPT WELL AT NIGHT,SALINE LOCK LEFT HAND INTACT AND PATENT.ABDOMEN REMAINS DISTENDED BUT SOFT.FOR REPEAT ULTRASOUND GUIDED PARACENTESIS TODAY.ABLE TO WALK TO THE BATHROOM WITH ASSIST.IN NO ACUTE DISTRESS.WILL ENDORSE TO DAY NURSE FOR HOMER.
[2018-12-02 07:00] LABS: BASOPHILS % (AUTO) 0.3 % (0.0-2.0); EOSINOPHILS % (AUTO) 2.7 % (0.0-6.0); HEMATOCRIT 26 % (33-45); HEMOGLOBIN 8.3 g/dL (11.5-14.8); LYMPHOCYTES # (AUTO) 0.5 /CMM (0.8-4.8); LYMPHOCYTES % (AUTO) 15.1 % (20.0-44.0); MEAN CORPUSCULAR HGB CONC 32 g/dl (31.0-36.0); MEAN CORPUSCULAR VOLUME 93 fL (82-100); MONOCYTES # (AUTO) 0.2 /CMM (0.1-1.30); MONOCYTES % (AUTO) 7.5 % (2.0-12.0); NEUTROPHILS # (AUTO) 2.2 /CMM (1.8-8.9); NEUTROPHILS % (AUTO) 74.4 % (43.0-81.0); PLATELET COUNT (AUTO) 103 /CMM (150-450); RED BLOOD CELL COUNT(AUTO) 2.77 MIL/uL (4.0-5.2)
--- NOTE | 2018-12-02 07:15 | NUR ---
RN OPENING NOTES RECEIVED PATIENT ON BED SLEEPING, AROUSABLE TO VERBAL STIMULI. BARBADIAN SPEAKING WITH LITTLE SYRIAC. NOT IN ANY FORM OF DISTRESS, NO SOB. DENIED ANY PAIN OR DISCOMFROT AT THIS TIME. IV ACCESS INTACT AND PATENT. ABDOMEN DISTENDED BUT SOFT. KEPT PATIENT SAFE AND COMFORTABLE. FALL PRECAUTION OBSERVED DUE WEAKNESS. BED IN LOW/LOCKED POSITION, SIDERAILS UPX2, CALL LIGHT IN REACH. WILL CONTINUE TO MONIOTR ACCORDINGLY.
[2018-12-02 07:34] LABS: CALCIUM, SERUM 8.3 mg/dL (8.5-10.1); CARBON DIOXIDE 23 mmol/L (21-32); CHLORIDE 110 mmol/L (98-107); CREATININE 1.5 mg/dL (0.6-1.3); GLUCOSE 138 mg/dL (74-106); SODIUM SERUM 143 mmol/L (136-145); UREA NITROGEN, BLOOD 50 mg/dL (7-18)
[2018-12-02 08:00] VITALS: BP 133/82
[2018-12-02] MEDS: PANTOPRAZOLE 40 MG TABLET.DR PO SCH (09:33)
[2018-12-02] MEDS: LEVOTHYROXINE SODIUM 50 MCG TABLET PO SCH (09:33)
[2018-12-02] MEDS: BUMETANIDE (1 MG) 1 MG TABLET PO SCH (09:33)
[2018-12-02 09:34] VITALS: BP 144/67
[2018-12-02] MEDS: CARVEDILOL 3.125 MG TABLET PO SCH (09:34)
[2018-12-02] MEDS ORDERED: BUME1TAB4 PO (09:38)
[2018-12-02] MEDS ORDERED: CARV3.122 PO (09:38)
[2018-12-02] MEDS ORDERED: LEVO50TA PO (09:38)
[2018-12-02] MEDS ORDERED: PANT40TA2 PO (09:38)
[2018-12-02] MEDS ORDERED: ACET325T53 PO (09:38)
[2018-12-02] MEDS ORDERED: CLOT15CR35 TP (09:38)
[2018-12-02] MEDS ORDERED: ALLA266C2 TP (09:38)
[2018-12-02] MEDS: Z GUARD REMEDY 2 OZ OINT TP SCH (09:39)
[2018-12-02] MEDS: CLOTRIMAZOLE 1% 15 GM TUBE TP SCH (09:40)
--- NOTE | 2018-12-02 10:00 | NUR ---
PARACENTESIS DONE, 4375ML OUTPUT. STABLE CONDITION. WILL SUZANNE TAPIA
--- NOTE | 2018-12-02 10:15 | NUR ---
SEEN BY DR HERRERA. CLEAR FOR DISCHARGE PER MD
[2018-12-02] MEDS ORDERED: ALBUMIN 25% 25 GM in PREMIX 1 EA IV SCH (10:30)
--- NOTE | 2018-12-02 10:30 | NUR ---
SEEN BY PHYSICAL THERAPY. WALKED WITH WALKER AND ASSISTANCE. TOLERATED WELL.
--- NOTE | 2018-12-02 14:56 | NUR ---
DISCHARGED PATIENT IN STABLE CONDITION PICKED UP BY SON. DISCHARGED INSTRUCTIONS GIVEN ORDERED, VERBALIZED UNDERSTANDING. PAPERWORK GIVEN. ALL BELONGINGS RETURNED, FORM SIGNED. IV ACCESS REMOVED. NO COMPLICATIONS. NAME BAND REMOVE. REFUSED SKIN PICTURES.
[2018-12-03] MEDS ORDERED: ALBUMIN 25% 25 GM in PREMIX 1 EA IV SCH ×2
== END 2018-12-02 14:44 | disposition home health service (06) | DRG 432 ==
LOC: ER 12:23 → MEDSG1 14:11
PROVIDERS: ADMIT Family Medicine; ATTEND Family Medicine
PROC: 0W9G3ZZ Drainage of Peritoneal Cavity, Percutaneous Approach (ICD-10-PCS; principal; 2018-11-30)
PROC: 30233N1 Transfusion of Nonautologous Red Blood Cells into Peripheral Vein, Percutaneous Approach (ICD-10-PCS; 2018-12-01)
PROC: 0W9G3ZZ Drainage of Peritoneal Cavity, Percutaneous Approach (ICD-10-PCS; 2018-12-02)
DX: K74.60 Unspecified cirrhosis of liver (principal); N17.0 Acute kidney failure with tubular necrosis; R18.8 Other ascites; I13.0 Hypertensive heart and chronic kidney disease with heart failure and stage 1 through stage 4 chronic kidney disease, or unspecified chronic kidney disease; I48.92 Unspecified atrial flutter; I50.22 Chronic systolic (congestive) heart failure; N25.81 Secondary hyperparathyroidism of renal origin; Z95.1 Presence of aortocoronary bypass graft; E11.22 Type 2 diabetes mellitus with diabetic chronic kidney disease; Z86.73 Personal history of transient ischemic attack (TIA), and cerebral infarction without residual deficits; L30.4 Erythema intertrigo; I25.119 Atherosclerotic heart disease of native coronary artery with unspecified angina pectoris; M79.7 Fibromyalgia; E78.5 Hyperlipidemia, unspecified; E66.9 Obesity, unspecified; E83.51 Hypocalcemia; D63.8 Anemia in other chronic diseases classified elsewhere; E03.9 Hypothyroidism, unspecified; L89.890 Pressure ulcer of other site, unstageable; L98.8 Other specified disorders of the skin and subcutaneous tissue; L90.5 Scar conditions and fibrosis of skin; M62.50 Muscle wasting and atrophy, not elsewhere classified, unspecified site; K42.9 Umbilical hernia without obstruction or gangrene; Z95.0 Presence of cardiac pacemaker; E88.09 Other disorders of plasma-protein metabolism, not elsewhere classified; R32 Unspecified urinary incontinence; E11.42 Type 2 diabetes mellitus with diabetic polyneuropathy; I25.2 Old myocardial infarction; I48.2 Chronic atrial fibrillation; Z87.11 Personal history of peptic ulcer disease; Z98.61 Coronary angioplasty status; R41.2 Retrograde amnesia; K21.9 Gastro-esophageal reflux disease without esophagitis; I07.1 Rheumatic tricuspid insufficiency; Z68.24 Body mass index [BMI] 24.0-24.9, adult
CPT/HCPCS: 36415; 76942-TC; 80048-TC; 80076-TC; 82040-TC; 82140-TC; 83540-TC; 83735-TC; 83970; 84153-TC; 84154-TC; 85025-TC; 85730-TC; 86850-TC; 86880-TC; 86921-TC; 87070-TC; 87081-TC; 87086-TC; 87186-TC; 88112-TC; 88305-TC; 88312-TC; 89051-TC; 97116-TC; 97530-TC; A4216; G0378; J7040; J7050; P9016-BL; P9047; Q0163

== ENCOUNTER 2019-01-10 12:50 | Inpatient (IN) | payer MEDICARE, MEDICAID ==
[2019-01-10] VITALS (7 sets, daily range): BP systolic 123–154; BP diastolic 56–63
[~2019-01-10] VITALS: Ht 165.1 cm; Wt 71.7 kg
[~2019-01-10 12:50] MED LIST changes: +ACET325T53 PO; -ACET650S26 NG; -BUME1TAB4 PO; +BUME1TAB8 PO; -CARV3.12 PO; +CLOT15CR35 TP; -LACT10SO PO; -LACT10SO6 PO; -LEVO50TA8 PO; -NITR0.4T48 SL; -NYST15PO4 TP; -ONDA4VIA23 PO; -PANT40TA4 PO
--- NOTE | 2019-01-10 12:50 | NUR ---
DAVY Fields C/O INCREASING SOB FROM HOME. TO ER BED 10, AOx3, NOT IN DISTRESS, HOOKED TO MONITOR, CHANGED TO GOWN, PROVIDED W WARM BLANKET, AWAITING MD SMITH
--- NOTE | 2019-01-10 12:53 | NUR ---
DR LOOMIS AT BEDSIDE
--- NOTE | 2019-01-10 13:12 | NUR ---
STEAMFITTER APPRENTICE AT BEDSIDE
[2019-01-10 13:20] LABS: BASOPHILS % (AUTO) 0.2 % (0.0-2.0); EOSINOPHILS % (AUTO) 2.1 % (0.0-6.0); HEMATOCRIT 21 % (33-45); LYMPHOCYTES # (AUTO) 0.4 /CMM (0.8-4.8); LYMPHOCYTES % (AUTO) 14.6 % (20.0-44.0); MEAN CORPUSCULAR HGB CONC 31 g/dl (31.0-36.0); MEAN CORPUSCULAR VOLUME 93 fL (82-100); MONOCYTES # (AUTO) 0.2 /CMM (0.1-1.30); MONOCYTES % (AUTO) 5.9 % (2.0-12.0); NEUTROPHILS # (AUTO) 2.1 /CMM (1.8-8.9); NEUTROPHILS % (AUTO) 77.2 % (43.0-81.0); PLATELET COUNT (AUTO) 113 /CMM (150-450); RED BLOOD CELL COUNT(AUTO) 2.23 MIL/uL (4.0-5.2); WHITE BLOOD COUNT (AUTO) 2.7 K/uL (4.3-11.0)
[2019-01-10 13:22] LABS: HEMOGLOBIN 6.5 g/dL (11.5-14.8)
[2019-01-10 13:23] LABS: CALCIUM, SERUM 8.6 mg/dL (8.5-10.1); CARBON DIOXIDE 21 mmol/L (21-32); CHLORIDE 107 mmol/L (98-107); CREATININE 1.4 mg/dL (0.6-1.3); GLUCOSE 222 mg/dL (74-106); POTASSIUM 5.4 mmol/L (3.5-5.1); SODIUM SERUM 138 mmol/L (136-145); UREA NITROGEN, BLOOD 51 mg/dL (7-18)
[2019-01-10 13:36] LABS: ALANINE AMINOTRANSFERASE 13 U/L (12-78); ALBUMIN 2.9 g/dL (3.4-5.0); ALKALINE PHOSPHATASE 141 U/L (46-116); ASPARTATE AMINOTRANSFERASE 10 U/L (15-37); B-TYPE NATRIURETIC PEPTIDE 8148 PG/ML (0-125); BILIRUBIN,DIRECT 0.2 mg/dL (0.0-0.2); BILIRUBIN,TOTAL 0.4 mg/dL (0.2-1.0); TOTAL PROTEIN, SERUM 7.6 g/dL (6.4-8.2)
--- NOTE | 2019-01-10 13:37 | NUR ---
AUTOMATIC MACHINES SUPERVISOR: JANNA ADANBRIJESH (SON) [phone]
--- NOTE | 2019-01-10 13:47 | NUR ---
CALLED NURSING SUP. FOR MS BED
[2019-01-10] MEDS ORDERED: HYDR-4076 PO (13:56)
[2019-01-10] MEDS ORDERED: FUROSEMIDE 40 MG/4 ML VIAL IV ONE (14:00)
--- NOTE | 2019-01-10 14:00 | NUR ---
CALLED DR. HERRERA'S OFFICE, ACCORDING TO STAFF IS ON VACATION SO HIS PT'S WILL GO TO [facility].
[2019-01-10 14:02] LABS: EOSINOPHILS % (MANUAL) 2 % (0-4); LYMPHOCYTES % (MANUAL) 15 % (16-48); MONOCYTES % (MANUAL) 4 % (0-11.0); NEUTROPHILS % (MANUAL) 79 (42-76)
[2019-01-10] MEDS ORDERED: FUROSEMIDE 40 MG/4 ML VIAL ONE (14:05)
--- NOTE | 2019-01-10 14:19 | NUR ---
MS 320-1, HORACIO.
--- NOTE | 2019-01-10 14:40 | NUR ---
REPORT GIVEN TO FRITZ BURK OF [facility]
[2019-01-10] MEDS ORDERED: FUROSEMIDE 20 MG/2 ML VIAL IV PRN (15:00)
[2019-01-10] MEDS ORDERED: ACETAMINOPHEN 325 MG TABLET PO PRN ×2 (15:00)
[2019-01-10] MEDS ORDERED: DEXTROSE 50%-WATER 50 ML DISP.SYRIN IV PRN (15:00)
[2019-01-10] MEDS ORDERED: Z GUARD REMEDY 2 OZ OINT TP PRN (15:00)
[2019-01-10] MEDS ORDERED: ONDANSETRON HCL/PF 4 MG/2 ML VIAL IVP PRN (15:00)
--- NOTE | 2019-01-10 15:00 | NUR ---
MS RN OPENING NOTES Received Patient comfortable and resting in bed. A/O x 3, [place] Speaking. VS stable with no acute distress. Breathing even and unlabored with SPO2 100% on room air. Denies pain. 20g PIV on LFA clean, dry, intact and flushing well. Safety precautions in place. Bed locked and set to lowest position with side rails x 2 up. All needs rendered at this time. Will continue to monitor.
--- NOTE | 2019-01-10 15:50 | NUR ---
MS RN NOTES Paracentesis performed at bedside. Noted 1575ml of fluid removed. Will continue to monitor.
--- NOTE | 2019-01-10 16:44 | NUR ---
MS RN NOTES Started blood transfusion at this time. VS stable. No signs and symptoms of adverse reactions noted. Will continue to monitor.
--- NOTE | 2019-01-10 16:59 | NUR ---
MS RN NOTES Blood transfusion still ongoing at this time. VS stable. No signs and symptoms of adverse reactions noted. Patient asleep. Will continue to monitor.
[2019-01-10] MEDS: CLOTRIMAZOLE 1% 15 GM TUBE TP SCH (17:00)
--- NOTE | 2019-01-10 17:29 | NUR ---
MS RN NOTES Blood transfusion still ongoing at this time. VS stable. No signs and symptoms of adverse reactions noted. Patient watching TV. Will continue to monitor.
[2019-01-10] MEDS: BLOOD SUGAR DIAGNOSTIC 1 EACH STRIP IN SCH ×2 (17:30→22:19)
[2019-01-10] MEDS: CARVEDILOL 3.125 MG TABLET PO SCH (19:24)
[2019-01-10] MEDS: hydrALAZINE HCL 25 MG TABLET PO SCH (19:24)
[2019-01-10] MEDS: INSULIN REGULAR, HUMAN 100 UNIT/ML 3 ML VIAL SQ PRN ×2 (19:26→22:25)
--- NOTE | 2019-01-10 19:33 | NUR ---
MS RN CLOSING NOTES Patient comfortable and resting in bed. A/O x 3, Vietnamese Speaking. VS stable with no acute distress. Breathing even and unlabored with SPO2 100% on room air. Denies pain. 20g PIV on LFA clean, dry, intact and flushing well. Blood transfusion running. Patient in stable condition. Will endorse to oncoming shift. Safety precautions in place. Bed locked and set to lowest position with side rails x 2 up. All needs rendered at this time. Will endorse plan of care to oncoming shift.
--- NOTE | 2019-01-10 19:34 | NUR ---
BHARGAVI FULLY AWAKE, VINCENTIAN SPEAKING ONLY, BLOOD TRANSFUSION DONE. VITAL SIGNS STABLE, REMAINS AFEBRILE. NO UNTOWARD REACTION FROM BLOOD TRANSFUSION. Addendum: 01/10/19 at 1937 by ALESHIA ROMO RN PATIENT IS SINHALA SPEAKING NOT VINCENTIAN.
--- NOTE | 2019-01-10 20:16 | NUR ---
MS RN OPENING NOTES Received Patient comfortable and resting in bed. A/O x 3, Lithuanian Speaking. VS stable with no acute distress. Breathing even and unlabored with SPO2 100% on room air. Denies pain. 20g PIV on LFA clean, dry, intact and flushing well. Safety precautions in place. Bed locked and set to lowest position with side rails x 2 up. All needs rendered at this time. Will continue to monitor. Addendum: 01/10/19 at 2021 by HORACIO MALIK RN ERROR DUPLICATE ENTRY
--- NOTE | 2019-01-10 22:00 | NUR ---
MSRN BS WAS 144, COVERED WITH 2 UNITS OF REGULAR INSULIN SQ. HAS OWN FOOD FROM HOME. OFFERED BSC, ASSISTED. DIAPER WITH LARGE OUTPUT. VOIDED FREELY ON BSC. CLOSELY WATCHED.
--- NOTE | 2019-01-11 06:45 | NUR ---
MSRN BS 127, NO COVERAGE. STABLE. EAGER TO GO HOME
[2019-01-11 06:57] LABS: BASOPHILS % (AUTO) 0.3 % (0.0-2.0); EOSINOPHILS % (AUTO) 3.3 % (0.0-6.0); HEMATOCRIT 22 % (33-45); HEMOGLOBIN 7.2 g/dL (11.5-14.8); LYMPHOCYTES # (AUTO) 0.5 /CMM (0.8-4.8); LYMPHOCYTES % (AUTO) 19.7 % (20.0-44.0); MEAN CORPUSCULAR HGB CONC 33 g/dl (31.0-36.0); MEAN CORPUSCULAR VOLUME 90 fL (82-100); MONOCYTES # (AUTO) 0.2 /CMM (0.1-1.30); MONOCYTES % (AUTO) 7.7 % (2.0-12.0); NEUTROPHILS # (AUTO) 1.7 /CMM (1.8-8.9); PLATELET COUNT (AUTO) 111 /CMM (150-450); RED BLOOD CELL COUNT(AUTO) 2.43 MIL/uL (4.0-5.2); WHITE BLOOD COUNT (AUTO) 2.4 K/uL (4.3-11.0)
[2019-01-11 07:08] LABS: ALANINE AMINOTRANSFERASE 11 U/L (12-78); ALBUMIN 2.6 g/dL (3.4-5.0); ALKALINE PHOSPHATASE 121 U/L (46-116); ASPARTATE AMINOTRANSFERASE 14 U/L (15-37); BILIRUBIN,TOTAL 0.6 mg/dL (0.2-1.0); CALCIUM, SERUM 8.3 mg/dL (8.5-10.1); CARBON DIOXIDE 20 mmol/L (21-32); CHLORIDE 110 mmol/L (98-107); CREATININE 1.4 mg/dL (0.6-1.3); GLUCOSE 122 mg/dL (74-106); MAGNESIUM 1.9 mg/dL (1.8-2.4); POTASSIUM 5.6 mmol/L (3.5-5.1); SODIUM SERUM 141 mmol/L (136-145); TOTAL PROTEIN, SERUM 6.9 g/dL (6.4-8.2); UREA NITROGEN, BLOOD 54 mg/dL (7-18)
[2019-01-11 07:15] LABS: CHOLESTEROL 102 mg/dL (<200); HDL CHOLESTEROL 33 mg/dL (40-60); LDL 59 mg/dL (0-99); THYROID STIMULATING HORMONE 3.233 uIU/mL (0.358-3.74); TRIGLYCERIDES 60 mg/dL (30-150)
[2019-01-11] MEDS ORDERED: PANTOPRAZOLE 40 MG TABLET.DR PO SCH (07:30)
[2019-01-11] MEDS ORDERED: LEVOTHYROXINE SODIUM 50 MCG TABLET PO SCH (07:30)
[2019-01-11] MEDS: BLOOD SUGAR DIAGNOSTIC 1 EACH STRIP IN SCH ×2 (07:53→12:04)
[2019-01-11 08:00] VITALS: BP 114/57
--- NOTE | 2019-01-11 08:00 | NUR ---
MS RN OPENING NOTES Received Patient resting and asleep in bed. A/O x 3, Persian Speaking. VS stable with no acute distress. Breathing even and unlabored with SPO2 96% on room air. No signs and symptoms of pain. 20g PIV on LFA clean, dry, intact and flushing well. Safety precautions in place. Bed locked and set to lowest position with side rails x 2 up. Will continue to monitor.
[2019-01-11 08:07] LABS: IRON, SERUM 55 ug/dl (50-175); TOTAL IRON BINDING CAPACITY 222 ug/dl (250-450)
[2019-01-11] MEDS: CARVEDILOL 3.125 MG TABLET PO SCH (08:38)
[2019-01-11] MEDS: hydrALAZINE HCL 25 MG TABLET PO SCH ×2 (08:38→12:18)
[2019-01-11] MEDS: CLOTRIMAZOLE 1% 15 GM TUBE TP SCH (08:39)
[2019-01-11] MEDS ORDERED: Z GUARD REMEDY 2 OZ OINT TP SCH (09:00)
[2019-01-11] MEDS ORDERED: BUMETANIDE (1 MG) 1 MG TABLET PO SCH (09:00)
[2019-01-11] MEDS: SODIUM POLYSTYRENE SULFONATE 15 G/60 ML BOTTLE PO ONE ×2 (11:00→12:04)
[2019-01-11 12:18] VITALS: BP 126/60
[2019-01-11] MEDS: INSULIN REGULAR, HUMAN 100 UNIT/ML 3 ML VIAL SQ PRN (12:40)
--- NOTE | 2019-01-11 15:10 | NUR ---
MS OUTPATIENT COORDINATOR NOTES Patient discharged for home at this time in stable condition. Denies pain. Skin assessment done per protocol. Medication reconciliation and discharge orders reviewed and explained to Patient and family. Patient and family verbalized understanding. All belongings with Patient. Patient will follow up with Primary MD. Escorted Patient to the Lobby via wheelchair for safety. Patient picked up by .
== END 2019-01-11 15:05 | disposition home or self-care (01) | DRG 812 ==
LOC: ER 12:52 → MED 14:28
PROVIDERS: ADMIT Nurse Practitioner Acute Care; ATTEND Nurse Practitioner Acute Care
PROC: 30233N1 Transfusion of Nonautologous Red Blood Cells into Peripheral Vein, Percutaneous Approach (ICD-10-PCS; principal; 2019-01-10)
PROC: 0W9G3ZZ Drainage of Peritoneal Cavity, Percutaneous Approach (ICD-10-PCS; 2019-01-10)
DX: D50.9 Iron deficiency anemia, unspecified (principal); I13.0 Hypertensive heart and chronic kidney disease with heart failure and stage 1 through stage 4 chronic kidney disease, or unspecified chronic kidney disease; I50.42 Chronic combined systolic (congestive) and diastolic (congestive) heart failure; R18.8 Other ascites; K72.90 Hepatic failure, unspecified without coma; E11.22 Type 2 diabetes mellitus with diabetic chronic kidney disease; F09 Unspecified mental disorder due to known physiological condition; I27.20 Pulmonary hypertension, unspecified; I48.91 Unspecified atrial fibrillation; I25.10 Atherosclerotic heart disease of native coronary artery without angina pectoris; E03.9 Hypothyroidism, unspecified; E78.5 Hyperlipidemia, unspecified; E87.5 Hyperkalemia; Z86.73 Personal history of transient ischemic attack (TIA), and cerebral infarction without residual deficits; Z95.0 Presence of cardiac pacemaker; Z87.11 Personal history of peptic ulcer disease; Z95.1 Presence of aortocoronary bypass graft; F03.90 Unspecified dementia, unspecified severity, without behavioral disturbance, psychotic disturbance, mood disturbance, and anxiety; E11.42 Type 2 diabetes mellitus with diabetic polyneuropathy; G89.29 Other chronic pain; M19.90 Unspecified osteoarthritis, unspecified site; M81.0 Age-related osteoporosis without current pathological fracture; M10.9 Gout, unspecified; Z96.659 Presence of unspecified artificial knee joint; N18.3 Chronic kidney disease, stage 3 (moderate)
CPT/HCPCS: 36415; 71045-TC; 76942-TC; 80048-TC; 80053-TC; 80061-TC; 80076-TC; 82962-TC; 83540-TC; 83605-TC; 83735-TC; 83880; 84100-TC; 84443-TC; 84484-TC; 85025-TC; 85045-TC; 85730-TC; 86850-TC; 86921-TC; 87040-TC; 87081-TC; G0378; J1815; J1940; J7050; P9016-BL

== ENCOUNTER 2019-02-21 04:07 | Inpatient (IN) | payer MEDICARE, MEDICAID ==
[2019-02-21] VITALS (12 sets, daily range): BP systolic 108–127; BP diastolic 42–56
[~2019-02-21] VITALS: Ht 152.4 cm; Wt 74.9 kg
[~2019-02-21 04:07] MED LIST changes: +HYDR-4076 PO
--- NOTE | 2019-02-21 04:17 | NUR ---
BIBA FOR C/O ABD PAIN/ DISTENTION. PMH OF ASCITIS W/ PARACENTHESIS. PLACED ON A MONITOR, VSS
[2019-02-21] MEDS ORDERED: MORPHINE SULFATE INJ 2 MG/ML DISP.SYRIN ONE (04:23)
[2019-02-21] MEDS ORDERED: MORPHINE SULFATE INJ 2 MG/ML DISP.SYRIN IV ONE (04:30)
[2019-02-21 04:39] LABS: LYMPHOCYTES # (AUTO) 0.6 /CMM (0.8-4.8); LYMPHOCYTES % (AUTO) 15.7 % (20.0-44.0); MONOCYTES # (AUTO) 0.3 /CMM (0.1-1.30); NEUTROPHILS # (AUTO) 2.8 /CMM (1.8-8.9); WHITE BLOOD COUNT (AUTO) 3.7 K/uL (4.3-11.0)
[2019-02-21 04:42] LABS: BASOPHILS % (AUTO) 0.2 % (0.0-2.0); EOSINOPHILS % (AUTO) 2.8 % (0.0-6.0); MEAN CORPUSCULAR HGB CONC 32 g/dl (31.0-36.0); MEAN CORPUSCULAR VOLUME 87 fL (82-100); MONOCYTES % (AUTO) 6.9 % (2.0-12.0); NEUTROPHILS % (AUTO) 74.4 % (43.0-81.0); PLATELET COUNT (AUTO) 113 /CMM (150-450)
[2019-02-21 04:51] LABS: RED BLOOD CELL COUNT(AUTO) 1.98 MIL/uL (4.0-5.2)
[2019-02-21 04:52] LABS: HEMATOCRIT 17 % (33-45); HEMOGLOBIN 5.6 g/dL (11.5-14.8)
[2019-02-21 04:55] LABS: ALANINE AMINOTRANSFERASE 14 U/L (12-78); ALBUMIN 2.9 g/dL (3.4-5.0); ALKALINE PHOSPHATASE 119 U/L (46-116); ASPARTATE AMINOTRANSFERASE 11 U/L (15-37); BILIRUBIN,DIRECT 0.1 mg/dL (0.0-0.2); BILIRUBIN,TOTAL 0.4 mg/dL (0.2-1.0); CALCIUM, SERUM 8.5 mg/dL (8.5-10.1); CARBON DIOXIDE 24 mmol/L (21-32); CHLORIDE 105 mmol/L (98-107); CREATININE 1.8 mg/dL (0.6-1.3); GLUCOSE 109 mg/dL (74-106); LIPASE 305 U/L (73-393); POTASSIUM 4.8 mmol/L (3.5-5.1); SODIUM SERUM 138 mmol/L (136-145); TOTAL PROTEIN, SERUM 7.8 g/dL (6.4-8.2)
[2019-02-21 04:58] LABS: UREA NITROGEN, BLOOD 94 mg/dL (7-18)
[2019-02-21 05:23] LABS: EOSINOPHILS % (MANUAL) 4 % (0-4); LYMPHOCYTES % (MANUAL) 14 % (16-48); MONOCYTES % (MANUAL) 6 % (0-11.0); NEUTROPHILS % (MANUAL) 76 (42-76)
[2019-02-21] MEDS ORDERED: Z GUARD REMEDY 2 OZ OINT TP PRN (06:00)
[2019-02-21] MEDS ORDERED: ZOLPIDEM TARTRATE 5 MG TABLET PO PRN (06:00)
[2019-02-21] MEDS ORDERED: MAG HYDROX/AL HYDROX/SIMETH 30 ML UDC PO PRN (06:00)
[2019-02-21] MEDS ORDERED: ONDANSETRON HCL/PF 4 MG/2 ML VIAL IVP PRN (06:00)
[2019-02-21] MEDS ORDERED: MAGNESIUM HYDROXIDE 30 ML UDC PO PRN (06:00)
[2019-02-21] MEDS ORDERED: MORPHINE SULFATE INJ 2 MG/ML DISP.SYRIN IV PRN (06:00)
--- NOTE | 2019-02-21 06:20 | NUR ---
RN medsurg notes Received information regarding Pt from BHARGAVI Perry.
--- NOTE | 2019-02-21 06:52 | NUR ---
PT WAS TRANSFERRED TO THIRD FLOOR UNDER ACLS IN STABLE CONDITION,
--- NOTE | 2019-02-21 07:00 | NUR ---
RN cira admission notes New admitted Pt is 88 Y F who was brought from ER. Pt arrived at the unit at 0650 with a gurney under ACLS protocol. Pt was diagnosed with severe anemia, ascites. Pt Pt is alert and oriented X4. Pt speaks Romanian and able to make needs known. IV sites at L hand # 20 is clean, intact and patent. VS is stable. Respiration is normal. No SOB. No nausea or vomiting. Pt denies any pain or discomfort. 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 Skin assessment done. Pt refused to have pictures taken. Gave a warm blanket for comfort. Pt status is NPO. Blood consent is signed by Pt. All belongings was checked by Er nurse and placed in Pt's chart. Safety Precautions is maintained. Bed at low position, brakes locked, side rails upX3 and call light is within reach. Will endorse to morning nurse for HOMER.
[2019-02-21] MEDS ORDERED: PANTOPRAZOLE 40 MG TABLET.DR PO SCH (07:30)
[2019-02-21] MEDS ORDERED: PANTOPRAZOLE 40 MG VIAL IV SCH ×2 (07:30→22:00)
--- NOTE | 2019-02-21 08:14 | NUR ---
MS RN OPENING NOTES Received Patient resting and asleep in bed. A/O x 4, Slovenian speaking. VS stable with no acute distress. Breathing even and unlabored on room air with no respiratory distress. No signs and symptoms of pain at this time. 20g PIV on LEFT HAND clean, dry, intact and flushing well. Telemonitor in place and operational reading SR HR-61. Noted LCW Pacemaker in place and operational. Safety precautions in place. Bed locked and set to lowest position with side rails x 2 up. Call light within reach. Will continue to monitor.
--- NOTE | 2019-02-21 08:51 | NUR ---
MS RN NOTES Notified Papi ELLIOTT that PRBC x 1 dose would not be available in the AM. New orders noted and carried out. Patient resting in bed and in stable condition. Will continue to monitor.
[2019-02-21] MEDS ORDERED: FAMOTIDINE/PF INJ 20 MG/2 ML VIAL IV SCH (09:44)
[2019-02-21 09:48] LABS: HEMOGLOBIN 5.1 g/dL (11.5-14.8)
--- NOTE | 2019-02-21 09:50 | NUR ---
MS RN NOTES Urine Clean Catch specimen obtained and placed in fridge. Will continue to monitor.
--- NOTE | 2019-02-21 09:56 | NUR ---
MS RN NOTES Papi ELLIOTT at bedside. Notified MD of new critical H/H levels. New orders noted and carried out. Patient in stable condition. Will continue to monitor.
[2019-02-21] MEDS: ALBUMIN 25% 25 GM in PREMIX 1 EA IV SCH ×2 (10:19→17:19)
[2019-02-21 10:20] LABS: APPEARANCE,URINE SL CLOUDY (CLEAR); BILIRUBIN,URINE NEGATIVE (NEGATIVE); BLOOD, URINE NEGATIVE Ery/uL (NEGATIVE); COLOR,URINE YELLOW (YELLOW); KETONES,URINE NEGATIVE (NEGATIVE); LEUKOCYTE ESTERASE ,URINE 2+ (NEGATIVE); NITRITE, URINE NEGATIVE (NEGATIVE); PH,URINE 5.5 (5.0-8.0); PROTEIN,URINE NEGATIVE (NEGATIVE); UGLUCOSE NEGATIVE (NEGATIVE); UROBILINOGEN,URINE 0.2 EU/dL (0.2)
[2019-02-21 10:29] LABS: RBC,URINE 0-2 /HPF (0-2)
[2019-02-21 10:30] LABS: BACTERIA,URINE Few /HPF (None Seen)
[2019-02-21 10:31] LABS: SQUAMOUS EPITHELIAL CELL,UR Few /HPF (None Seen)
--- NOTE | 2019-02-21 11:30 | NUR ---
MS RN NOTES Ultrasound guided Paracentesis consent signed. Paracentesis done at bedside. 2050ml clear heidy coloured output removed. Patient tolerated well. Patient in stable condition. Will continue to monitor.
--- NOTE | 2019-02-21 11:55 | NUR ---
MS RN NOTES Blood transfusion administered at this time. VS stable with no acute distress. Breathing even and unlabored on room air with no respiratory distress. No signs and symptoms of allergic reaction. 20g PIV on RIGHT FOREARM clean, dry and intact. Will continue to monitor.
[2019-02-21] MEDS ORDERED: RANI150T8 PO (12:01)
[2019-02-21] MEDS ORDERED: ENAL5TAB77 PO (12:01)
[2019-02-21] MEDS ORDERED: TIOT18CA3 IH (12:01)
[2019-02-21] MEDS ORDERED: ISOS20TA8 PO (12:01)
[2019-02-21] MEDS ORDERED: SPIR25TA6 PO (12:01)
[2019-02-21] MEDS ORDERED: MECL-102 PO (12:01)
[2019-02-21] MEDS ORDERED: LEVO125T8 PO (12:01)
[2019-02-21] MEDS ORDERED: REPA2TAB PO (12:01)
[2019-02-21] MEDS ORDERED: LINA72CA PO (12:01)
[2019-02-21] MEDS ORDERED: AMLO5TAB4 PO (12:01)
[2019-02-21] MEDS ORDERED: LINA5TAB PO (12:01)
[2019-02-21] MEDS ORDERED: PROP10TA10 PO (12:01)
[2019-02-21] MEDS ORDERED: BUDE10.2 IH (12:01)
[2019-02-21] MEDS ORDERED: ATOR20TA PO (12:01)
[2019-02-21] MEDS ORDERED: BUME2TAB7 PO (12:01)
[2019-02-21] MEDS ORDERED: ZOLP5TAB8 PO (12:01)
[2019-02-21] MEDS ORDERED: FOLI1TAB16 PO (12:01)
[2019-02-21] MEDS ORDERED: ASPI-605 PO (12:01)
--- NOTE | 2019-02-21 12:15 | NUR ---
MS RN NOTES Blood transfusion running at this time. VS stable with no acute distress. Breathing even and unlabored on room air with no respiratory distress. No signs and symptoms of allergic reaction. Patient tolerating well and asleep and resting. 20g PIV on RIGHT FOREARM clean, dry and intact. Will continue to monitor.
--- NOTE | 2019-02-21 15:50 | NUR ---
MS RN NOTES Blood transfusion completed at this time. VS stable with no acute distress. Breathing even and unlabored on room air with no respiratory distress. No signs and symptoms of allergic reaction. 20g PIV on RIGHT FOREARM clean, dry and intact. Patient tolerated well. Will continue to monitor.
--- NOTE | 2019-02-21 18:46 | NUR ---
MS RN CLOSING NOTES Patient resting and asleep in bed. A/O x 4, Samoan speaking. VS stable with no acute distress. Breathing even and unlabored on room air with no respiratory distress. No signs and symptoms of pain at this time. 20g PIV on LEFT HAND clean, dry, intact and flushing well. 20G PIV on RIGHT FOREARM clean, dry, intact and flushing well. Safety precautions in place. Bed locked and set to lowest position with side rails x 2 up. Call light within reach. Will endorse plan of care to oncoming shift.
--- NOTE | 2019-02-21 19:30 | NUR ---
RN MS OPENING NOTES RECEIVED PATIENT IN BED AWAKE, ALERT AND ORIENTED X3, VERBALLY RESPONSIVE, ABLE TO MAKE NEEDS KNOWN. NIGERIEN SPEAKER. BREATHING EVEN AND UNLABORED. NO SOB NOTED. TOLERATING ROOM AIR. NO COMPLAINTS OF PAIN OR DISCOMFORT. NO FACIAL GRIMACING. IV ON LEFT HAND AND RIGHT AC INTACT AND PATENT. SKIN DRY AND WARM TO TOUCH. AFEBRILE. PATIENT IS S/P BLOOD TRANSFUSION DURING DAY SHIFT. NO ADVERSE EFFECTS NOTED. NO BLEEDING NOTED. ALL OTHER NEEDS ATTENDED TO. SAFETY MEASURES IN PLACE. CALL LIGHT WITHIN REACH. WILL CONTINUE TO MONITOR.
[2019-02-21 20:25] LABS: HEMOGLOBIN 6.2 g/dL (11.5-14.8)
--- NOTE | 2019-02-21 20:32 | NUR ---
RN MS NOTES PATIENTS H/H IS 6.2 AND 19 AFTER 1 UNIT OF BLOOD TRANSFUSION FROM DAY SHIFT. DR. HERRERA WAS PAGED. AWAITING CALL BACK. PATIENT IN STABLE CONDITION. CURRENTLY WITH NO ACTIVE BLEEDING. VSS. WILL CONTINUE TO MONITOR.
--- NOTE | 2019-02-21 20:46 | NUR ---
RN MS NOTES RECEIVED A CALL BACK FROM DR. HERRERA REGARDING CRITICAL LOW H/H OF 6.2/19 WITH ORDERS TO TRANSFUSE TO MORE 2 MORE UNITS OF BLOOD. ORDER NOTED AND CARRIED OUT. WILL CONTINUE TO MONITOR.
--- NOTE | 2019-02-21 20:53 | NUR ---
RN MS NOTES CALLED LAB AND SPOKE WITH FAYE AND INFORMED OF NEW ORDER TO TRANSFUSE 2 MORE UNITS OF PRBC. PER FAYE, HE WILL CALL WHEN BLOOD IS READY. WILL CONTINUE TO MONITOR,
[2019-02-21] MEDS ORDERED: PANTOPRAZOLE 80 MG in IV NS 0.9% 500 ML IV PRN (21:00)
[2019-02-21] MEDS ORDERED: OCTREOTIDE 1,250 MCG in IV NS 0.9% 247.5 ML IV PRN (21:00)
[2019-02-21] MEDS ORDERED: PANTOPRAZOLE 80 MG in IV NS 0.9% 100 ML IV ONE (21:00)
[2019-02-21 21:48] LABS: FERRITIN 40 ng/mL (8-388)
--- NOTE | 2019-02-21 21:56 | NUR ---
BHARGAVI SHARIF HERE IN UNIT. SEEN AND EVALUATED PATIENT WITH NEW ORDERS. WILL CONTINUE TO MONITOR. Addendum: 02/22/19 at 0350 by LE PEREZ RN ALSO RECEIVED VERBAL ORDER FOR D5 1/2NS AT 75ML/HR. VERIFIED ORDER. ORDER NOTED AND CARRIED OUT.
[2019-02-21] MEDS ORDERED: OCTREOTIDE 50 MCG in IV NS 0.9% 50 ML IV ONE (22:00)
[2019-02-21 22:01] LABS: IRON, SERUM 32 ug/dl (50-175); TOTAL IRON BINDING CAPACITY 263 ug/dl (250-450)
[2019-02-21] MEDS ORDERED: PANTOPRAZOLE 40 MG VIAL ONE (22:08)
--- NOTE | 2019-02-21 23:08 | NUR ---
RN MS NOTES PATIENT STARTED ON FIRST UNIT OF BLOOD TRANSFUSION. VSS. NOT IN ANY DISTRESS. WILL CONTINUE TO MONITOR.
--- NOTE | 2019-02-21 23:23 | NUR ---
RN MS NOTES PATIENT WITHIN 15 MINUTES OF BLOOD TRANSFUSION. VSS. NOT IN ANY DISTRESS. WILL CONTINUE TO MONITOR.
[2019-02-22] VITALS (11 sets, daily range): BP systolic 113–142; BP diastolic 50–89
--- NOTE | 2019-02-22 00:08 | NUR ---
RN MS NOTES AN HOUR INTO BLOOD TRANSFUSION. PATIENT TOLERATING WELL. NO ADVERSE EFFECTS NOTED. VSS. WILL CONTINUE TO MONITOR.
--- NOTE | 2019-02-22 02:25 | NUR ---
RN MS NOTES PATIENT IS S/P 1 UNIT PRBC TRANSFUSION. IN NO DISTRESS. NO ADVERSE EFFECTS NOTED. VSS. WILL CONTINUE TO MONITOR.
[2019-02-22] MEDS: ALBUMIN 25% 25 GM in PREMIX 1 EA IV SCH (02:28)
--- NOTE | 2019-02-22 02:45 | NUR ---
RN MS NOTES CALLED IMELDA FROM LAB FOR UPDATE REGARDING SECOND BAG OF PRBC. PER IMELDA, SHE IS HAVING A HARD TIME ENTERING IT ON [employer], BUT WILL CALL SOON IT IS READY FOR A PUBLIC INFORMATION OFFICER.
[2019-02-22] MEDS ORDERED: IV D5/0.45 NACL 1,000 ML IV PRN (03:52)
--- NOTE | 2019-02-22 04:21 | NUR ---
RN MARYCRUZ HOFFMAN, CALLED IMELDA FROM LAB AGAIN REGARDING SECOND UNIT OF PRBC. PER IMELDA, BLOOD IS HERE BUT UNABLE TO RELEASE BLOOD AT THIS TIME DUE TO PROBLEMS WITH ENTERING ON COMPUTER. PER IMELDA, SHE WILL CALL WHEN IT IS AVAILABLE, AND TO JUST JUST DO SCHEDULED BLOOD WORKS.
[2019-02-22 06:32] LABS: BASOPHILS % (AUTO) 0.4 % (0.0-2.0); EOSINOPHILS % (AUTO) 2.9 % (0.0-6.0); HEMATOCRIT 23 % (33-45); HEMOGLOBIN 7.7 g/dL (11.5-14.8); LYMPHOCYTES # (AUTO) 0.6 /CMM (0.8-4.8); LYMPHOCYTES % (AUTO) 17.3 % (20.0-44.0); MEAN CORPUSCULAR HGB CONC 33 g/dl (31.0-36.0); MEAN CORPUSCULAR VOLUME 86 fL (82-100); MONOCYTES # (AUTO) 0.3 /CMM (0.1-1.30); MONOCYTES % (AUTO) 7.9 % (2.0-12.0); NEUTROPHILS # (AUTO) 2.3 /CMM (1.8-8.9); NEUTROPHILS % (AUTO) 71.5 % (43.0-81.0); PLATELET COUNT (AUTO) 94 /CMM (150-450); RED BLOOD CELL COUNT(AUTO) 2.71 MIL/uL (4.0-5.2); WHITE BLOOD COUNT (AUTO) 3.2 K/uL (4.3-11.0)
--- NOTE | 2019-02-22 06:43 | NUR ---
RN MS NOTES PAGED DR. HERRERA REGARDING NOT BEING ABLE TO ADMINISTER SECOND UNIT OF OF PRBC DUE TO LAB/BLOOD BANK NOT BEING TO RELEASE IT DUE TO COMPUTER ISSUES. INFORMED DR. HERRERA THAT NEW H/H IS .02/01. REQUESTED FOR APPROVAL TO ENDORSE TO DAY NURSE TO ADMINISTER 1 MORE UNIT OF PRBC WHEN BLOOD IS AVAILABLE. PER DR. HERRERA, "THAT'S OK." WILL ENDORSE TO ONCOMING NURSE.
--- NOTE | 2019-02-22 06:47 | NUR ---
RN MS CLOSING NOTES PATIENT RESTING IN BED. NO ACUTE CHANGES THROUGHOUT SHIFT. BREATHING EVEN AND UNLABORED. NO SOB NOTED. TOLERATING ROOM AIR. NO COMPLAINTS OF PAIN OR DISCOMFORT. NO FACIAL GRIMACING. IV ON LEFT HAND AND RIGHT AC INTACT AND PATENT WITH IVF INFUSING. PATIENT IS S/P 1 UNIT PRBC TRANSFUSION. NO ADVERSE EFFECTS NOTED. NO BLEEDING NOTED. ALL OTHER NEEDS ATTENDED TO. KEPT CLEAN DRY AND COMFORTABLE. SAFETY MEASURES IN PLACE. CALL LIGHT WITHIN REACH. WILL ENDORSE TO ONCOMING NURSE FOR HOMER. WILL ENDORSE SECOND UNIT OF PRBC.
--- NOTE | 2019-02-22 07:00 | NUR ---
RN MS NOTES RECEIVED CALL FROM LAB THAT BLOOD IS READY. ENDORSED TO BHARGAVI OWENS.
[2019-02-22 07:06] LABS: CHOLESTEROL 83 mg/dL (<200); HDL CHOLESTEROL 27 mg/dL (40-60); LDL 56 mg/dL (0-99); THYROID STIMULATING HORMONE 4.408 uIU/mL (0.358-3.74); TRIGLYCERIDES 63 mg/dL (30-150)
--- NOTE | 2019-02-22 07:40 | NUR ---
MS RN OPENING NOTES RECEIVED PATIENT IN BED AWAKE, ALERT AND ORIENTED X3, ABLE TO MAKE NEEDS KNOWN. SERBIAN SPEAKER. BREATHING EVEN AND UNLABORED. NO SOB NOTED. TOLERATING ROOM AIR. NO COMPLAINTS OF PAIN OR DISCOMFORT. IV ON LEFT HAND AND RIGHT AC. INTACT AND PATENT. AFEBRILE. SAFETY MEASURES IN PLACE. CALL LIGHT WITHIN REACH. WILL CONTINUE TO MONITOR.
[2019-02-22 07:41] LABS: CALCIUM, SERUM 8.8 mg/dL (8.5-10.1); CARBON DIOXIDE 21 mmol/L (21-32); CHLORIDE 110 mmol/L (98-107); CREATININE 1.7 mg/dL (0.6-1.3); GLUCOSE 119 mg/dL (74-106); MAGNESIUM 2.1 mg/dL (1.8-2.4); PHOSPHORUS 4.6 mg/dL (2.5-4.9); POTASSIUM 4.7 mmol/L (3.5-5.1); SODIUM SERUM 142 mmol/L (136-145)
[2019-02-22 07:52] LABS: UREA NITROGEN, BLOOD 82 mg/dL (7-18)
--- NOTE | 2019-02-22 08:15 | NUR ---
RN MS NOTES PATIENT STARTED ON 1 UNIT OF BLOOD TRANSFUSION. VSS. NOT IN ANY DISTRESS. WILL CONTINUE TO MONITOR.
[2019-02-22] MEDS ORDERED: NEXIUM 40 MG VIAL IV SCH (09:00)
[2019-02-22 09:09] LABS: EOSINOPHILS % (MANUAL) 2 % (0-4); LYMPHOCYTES % (MANUAL) 16 % (16-48); MONOCYTES % (MANUAL) 7 % (0-11.0); NEUTROPHILS % (MANUAL) 75 (42-76)
--- NOTE | 2019-02-22 10:48 | NUR ---
RN MS NOTES PATIENT S/P 1 UNIT PRBC TRANSFUSION. IN NO DISTRESS. NO ADVERSE EFFECTS NOTED. VSS. WILL CONTINUE TO MONITOR.
[2019-02-22] MEDS ORDERED: FOLIC ACID 1 MG TABLET PO SCH (11:00)
[2019-02-22] MEDS ORDERED: LEVOTHYROXINE SODIUM 125 MCG TABLET PO SCH (11:00)
[2019-02-22] MEDS ORDERED: MECLIZINE HCL 25 MG TABLET PO SCH (11:00)
[2019-02-22] MEDS ORDERED: FAMOTIDINE (20 MG) 20 MG TABLET PO PRN (11:30)
[2019-02-22] MEDS: REPAGLINIDE 2 MG TABLET PO SCH ×2 (12:31→17:04)
[2019-02-22] MEDS: ISOSORBIDE DINITRATE (20MG) 20 MG TABLET PO SCH ×2 (12:31→16:29)
--- NOTE | 2019-02-22 16:45 | NUR ---
MS RN NOTES PATIENT REFUSED TO SIGNED THE EGD CONSENT AND STATES THAT SHE DOESN'T WANT TO DO THE PROCEDURE. CHANTE ANGELES MADE AWARE.
[2019-02-22] MEDS ORDERED: Budesonide/Formoterol Fumarate (Symbicort 160-4.5 Mcg In INH SCH (17:00)
[2019-02-22 17:30] LABS: BASOPHILS % (AUTO) 0.1 % (0.0-2.0); EOSINOPHILS % (AUTO) 2.7 % (0.0-6.0); HEMATOCRIT 29 % (33-45); HEMOGLOBIN 9.4 g/dL (11.5-14.8); LYMPHOCYTES # (AUTO) 0.5 /CMM (0.8-4.8); LYMPHOCYTES % (AUTO) 12.5 % (20.0-44.0); MEAN CORPUSCULAR HGB CONC 33 g/dl (31.0-36.0); MEAN CORPUSCULAR VOLUME 87 fL (82-100); MONOCYTES # (AUTO) 0.3 /CMM (0.1-1.30); MONOCYTES % (AUTO) 7.5 % (2.0-12.0); NEUTROPHILS # (AUTO) 3.2 /CMM (1.8-8.9); NEUTROPHILS % (AUTO) 77.2 % (43.0-81.0); WHITE BLOOD COUNT (AUTO) 4.2 K/uL (4.3-11.0)
[2019-02-22 17:36] LABS: PLATELET COUNT (AUTO) 96 /CMM (150-450)
[2019-02-22 17:42] LABS: CALCIUM, SERUM 8.2 mg/dL (8.5-10.1); CARBON DIOXIDE 21 mmol/L (21-32); CHLORIDE 108 mmol/L (98-107); CREATININE 1.6 mg/dL (0.6-1.3); GLUCOSE 183 mg/dL (74-106); POTASSIUM 4.6 mmol/L (3.5-5.1); SODIUM SERUM 140 mmol/L (136-145); UREA NITROGEN, BLOOD 72 mg/dL (7-18)
--- NOTE | 2019-02-22 19:30 | NUR ---
MS RN CLOSING NOTES PATIENT IN BED RESTING COMFORTABLY IN MODERATE HIGH BACK REST. A/O X4. ON RA, NO SOB NOTED. IV FLUIDS ON LEFT HAND #20 WITH D5 1/2 NS @75ML/HR AND IV ACCESS ON RIGHT FA#20, SL. INTACT AND PATENT. SON IS ON BEDSIDE. PATIENT V/S WITHIN NORMAL LIMITS, IN STABLE CONDITION, PATIENT TO BE DISCHARGE. ENDORSED TO HAND CLOTH FOLDER NURSE.
--- NOTE | 2019-02-22 19:45 | NUR ---
Patient in RA, no SOB/respiratory distress noted. Afebrile, with not complaints made. Discharge instructions given to patient and the son. Belongings all accounted for, home medications given back to patient. IV line discontinued, noted intact, instructed patient to apply pressure to stop bleeding. ID band removed. Accompanied by GRANITE WORKER downstairs by wheelchair. Patient leaved the unit at this time, accompanied by the son.
[2019-02-23] MEDS ORDERED: PANT40VI (08:05)
[2019-02-23] MEDS ORDERED: RANITIDINE HCL PO (08:05)
[2019-02-23] MEDS ORDERED: FOLI1TAB16 PO (08:05)
[2019-02-23] MEDS ORDERED: SPIR25TA6 PO (08:05)
[2019-02-23] MEDS ORDERED: AMLO5TAB9 PO (08:05)
[2019-02-23] MEDS ORDERED: LEVO125T PO (08:05)
[2019-02-23] MEDS ORDERED: SPIRONOLACTONE 25 MG TABLET PO SCH (09:00)
[2019-02-23] MEDS ORDERED: AMLODIPINE BESYLATE 5 MG TABLET PO SCH (09:00)
[2019-02-23] MEDS ORDERED: LINAGLIPTIN 5 MG TABLET PO SCH (09:00)
[2019-02-23] MEDS ORDERED: ATORVASTATIN 10 MG TABLET PO SCH (22:00)
== END 2019-02-22 19:45 | disposition home health service (06) | DRG 433 ==
LOC: ER 04:07 → MED 05:59
PROVIDERS: ADMIT Family Medicine; ATTEND Family Medicine
PROC: 30233N1 Transfusion of Nonautologous Red Blood Cells into Peripheral Vein, Percutaneous Approach (ICD-10-PCS; principal; 2019-02-21)
PROC: 0W9G3ZZ Drainage of Peritoneal Cavity, Percutaneous Approach (ICD-10-PCS; 2019-02-21)
DX: K74.60 Unspecified cirrhosis of liver (principal); I13.0 Hypertensive heart and chronic kidney disease with heart failure and stage 1 through stage 4 chronic kidney disease, or unspecified chronic kidney disease; R18.8 Other ascites; I50.42 Chronic combined systolic (congestive) and diastolic (congestive) heart failure; N17.9 Acute kidney failure, unspecified; N25.81 Secondary hyperparathyroidism of renal origin; D63.8 Anemia in other chronic diseases classified elsewhere; E66.9 Obesity, unspecified; E11.319 Type 2 diabetes mellitus with unspecified diabetic retinopathy without macular edema; E11.22 Type 2 diabetes mellitus with diabetic chronic kidney disease; E11.42 Type 2 diabetes mellitus with diabetic polyneuropathy; E11.649 Type 2 diabetes mellitus with hypoglycemia without coma; N18.2 Chronic kidney disease, stage 2 (mild); D50.9 Iron deficiency anemia, unspecified; I27.20 Pulmonary hypertension, unspecified; E03.9 Hypothyroidism, unspecified; E78.5 Hyperlipidemia, unspecified; F09 Unspecified mental disorder due to known physiological condition; K21.9 Gastro-esophageal reflux disease without esophagitis; M19.90 Unspecified osteoarthritis, unspecified site; M81.0 Age-related osteoporosis without current pathological fracture; Z79.899 Other long term (current) drug therapy; Z98.61 Coronary angioplasty status; Z96.659 Presence of unspecified artificial knee joint; Z95.1 Presence of aortocoronary bypass graft; Z95.0 Presence of cardiac pacemaker; Z87.11 Personal history of peptic ulcer disease; Z86.73 Personal history of transient ischemic attack (TIA), and cerebral infarction without residual deficits; Z83.3 Family history of diabetes mellitus; Z82.49 Family history of ischemic heart disease and other diseases of the circulatory system; Z79.890 Hormone replacement therapy; Z68.32 Body mass index [BMI] 32.0-32.9, adult; I25.119 Atherosclerotic heart disease of native coronary artery with unspecified angina pectoris; I25.2 Old myocardial infarction; I07.1 Rheumatic tricuspid insufficiency; H40.9 Unspecified glaucoma; F43.10 Post-traumatic stress disorder, unspecified; M79.7 Fibromyalgia; R32 Unspecified urinary incontinence; E83.51 Hypocalcemia; F03.90 Unspecified dementia, unspecified severity, without behavioral disturbance, psychotic disturbance, mood disturbance, and anxiety; K42.9 Umbilical hernia without obstruction or gangrene; H35.30 Unspecified macular degeneration; K57.30 Diverticulosis of large intestine without perforation or abscess without bleeding; K58.9 Irritable bowel syndrome, unspecified
CPT/HCPCS: 36415; 71045-TC; 73140-TC; 76942-TC; 80048-TC; 80061-TC; 80076-TC; 81000-TC; 82040-TC; 82140-TC; 82728-TC; 83540-TC; 83605-TC; 83690-TC; 83735-TC; 84100-TC; 84443-TC; 84484-TC; 85025-TC; 85027-TC; 85610-TC; 86850-TC; 86921-TC; 87070-TC; 87081-TC; 87086-TC; 87186-TC; 88112-TC; 88305-TC; 88312-TC; 89051-TC; 93307-TC; 93970-TC; 97116-TC; 97530-TC; A4216; C9113; G0378; J2270; J2354; J3490; J7030; J7050; J8597; P9016-BL; P9047

== ENCOUNTER 2019-03-25 17:47 | Inpatient (IN) | payer MEDICARE, MEDICAID ==
[~2019-03-25] VITALS: Ht 152.4 cm; Wt 69.4 kg
[~2019-03-25 17:47] MED LIST changes: -ACET325T53 PO; -ALLA266C2 TP; +AMLO5TAB4 PO; +AMLO5TAB9 PO; +ASPI-605 PO; +ATOR20TA PO; +BUDE10.2 IH; -BUME1TAB8 PO; +BUME2TAB7 PO; -CARV3.122 PO; -CLOT15CR35 TP; +ENAL5TAB77 PO; +FOLI1TAB16 PO; +ISOS20TA8 PO; +LEVO125T PO; +LEVO125T8 PO; -LEVO50TA PO; +LINA5TAB PO; +LINA72CA PO; +MECL-102 PO; -PANT40TA2 PO; +PANT40VI; +PROP10TA10 PO; +RANI150T8 PO; +RANITIDINE HCL PO; +REPA2TAB PO; +SPIR25TA6 PO; +TIOT18CA3 IH; +ZOLP5TAB8 PO
--- NOTE | 2019-03-25 18:00 | NUR ---
[id number] FOR ABD PAIN HX OF ASCITES. PATIENT A/OX4, BREATHING EVEN AND UNLABORED, NO SOB NOTED. ATTACHED TO THE MONITOR, NO DISTRESS NOTED.
--- NOTE | 2019-03-25 18:40 | NUR ---
US TECH AT BEDSIDE. LABS DRAWN AND SENT TO LAB.
[2019-03-25 18:50] LABS: BASOPHILS % (AUTO) 0.8 % (0.0-2.0); EOSINOPHILS % (AUTO) 1.8 % (0.0-6.0); LYMPHOCYTES # (AUTO) 0.7 /CMM (0.8-4.8); MEAN CORPUSCULAR HGB CONC 33 g/dl (31.0-36.0); MEAN CORPUSCULAR VOLUME 86 fL (82-100); MONOCYTES # (AUTO) 0.3 /CMM (0.1-1.30); MONOCYTES % (AUTO) 7.1 % (2.0-12.0); NEUTROPHILS # (AUTO) 3.4 /CMM (1.8-8.9); NEUTROPHILS % (AUTO) 75.3 % (43.0-81.0); PLATELET COUNT (AUTO) 123 /CMM (150-450); RED BLOOD CELL COUNT(AUTO) 2.07 MIL/uL (4.0-5.2); WHITE BLOOD COUNT (AUTO) 4.5 K/uL (4.3-11.0)
--- NOTE | 2019-03-25 18:52 | NUR ---
PATIENT UNABLE TO GIVE URINE AT THIS TIME.
[2019-03-25 18:59] LABS: HEMATOCRIT 18 % (33-45); HEMOGLOBIN 5.8 g/dL (11.5-14.8)
[2019-03-25] MEDS ORDERED: PANTOPRAZOLE 40 MG VIAL IV ONE (19:30)
[2019-03-25 19:38] LABS: CALCIUM, SERUM 9.2 mg/dL (8.5-10.1); CARBON DIOXIDE 22 mmol/L (21-32); CHLORIDE 104 mmol/L (98-107); CREATININE 1.9 mg/dL (0.6-1.3); GLUCOSE 193 mg/dL (74-106); POTASSIUM 5.6 mmol/L (3.5-5.1); SODIUM SERUM 138 mmol/L (136-145)
--- NOTE | 2019-03-25 19:43 | NUR ---
BUN 85. AWARE
[2019-03-25 19:44] LABS: UREA NITROGEN, BLOOD 85 mg/dL (7-18)
[2019-03-25 19:46] LABS: ALANINE AMINOTRANSFERASE 12 U/L (12-78); ALBUMIN 3.3 g/dL (3.4-5.0); ALKALINE PHOSPHATASE 117 U/L (46-116); ASPARTATE AMINOTRANSFERASE 19 U/L (15-37); BAND % (MANUAL) 1 % (0.0-5.0); BILIRUBIN,DIRECT 0.2 mg/dL (0.0-0.2); BILIRUBIN,TOTAL 0.5 mg/dL (0.2-1.0); EOSINOPHILS % (MANUAL) 1 % (0-4); LYMPHOCYTES % (MANUAL) 12 % (16-48); MONOCYTES % (MANUAL) 7 % (0-11.0); NEUTROPHILS % (MANUAL) 79 (42-76); TOTAL PROTEIN, SERUM 8.1 g/dL (6.4-8.2)
[2019-03-25] MEDS ORDERED: PANTOPRAZOLE 40 MG VIAL ONE (19:46)
--- NOTE | 2019-03-25 19:49 | NUR ---
REPORT GIVEN TO ADRIEL BURK FOR HOMER.
[2019-03-25 20:00] VITALS: BP 112/50
--- NOTE | 2019-03-25 20:06 | NUR ---
CALLED DR VARGHESE'S OFFICE. DR BAEZA OFFICE CLINICIAN. AWAITING OFFICE CLINICIAN 'S CALL BACK
--- NOTE | 2019-03-25 20:21 | NUR ---
CALLED DR HERRERA'S OFFICE. ANSWERING SERVICE INFORMED ME THAT DR BAEZA WAS PRIZER HAND, THEN WAS TOLD THAT DR MARQUEZ WAS PRIZER HAND. ANSWERING SERVICE TRANSFERRED ME TO [facility]. [facility] PAGED DR MARQUEZ. AWAITING HIS CALL BACK
--- NOTE | 2019-03-25 20:37 | NUR ---
CALLED HOUSE SU[facility] FOR TELE BED
--- NOTE | 2019-03-25 20:57 | NUR ---
PT ASSIGNED TO 324-2
[2019-03-25] MEDS ORDERED: HYDROCODONE/APAP 5/325MG 1 EACH TABLET PO PRN (21:00)
[2019-03-25] MEDS ORDERED: MAG HYDROX/AL HYDROX/SIMETH 30 ML UDC PO PRN (21:00)
[2019-03-25] MEDS ORDERED: ZOLPIDEM TARTRATE 5 MG TABLET PO PRN (21:00)
[2019-03-25] MEDS ORDERED: Z GUARD REMEDY 2 OZ OINT TP PRN (21:00)
[2019-03-25] MEDS ORDERED: DEXTROSE 50%-WATER 50 ML DISP.SYRIN IV PRN (21:00)
[2019-03-25] MEDS ORDERED: ACETAMINOPHEN 325 MG TABLET PO PRN (21:00)
[2019-03-25] MEDS ORDERED: ONDANSETRON HCL/PF 4 MG/2 ML VIAL IVP PRN (21:00)
[2019-03-25] MEDS ORDERED: MAGNESIUM HYDROXIDE 30 ML UDC PO PRN (21:00)
--- NOTE | 2019-03-25 21:14 | NUR ---
117-1 PENELOPE BED GIVEN
[2019-03-25] MEDS ORDERED: Medication Not On Formulary EA (Atorvastatin Calcium (Lipitor) 20 MG) PO SCH (22:00)
--- NOTE | 2019-03-25 22:23 | NUR ---
RN NOTES SPOKE TO BLOOD BANK RE:PRBC ORDERED. WAS ORDERED IN [facility] DUE TO ANTIBODIES; WILL TAKE 2-3 HRS. PRIMARY RN AWARE; DMITRY KARIMI AWARE Addendum: 03/25/19 at 2311 by RAMSES JARAMILLO RN 2310 DR. MARQUEZ AT BEDSIDE; MADE AWARE THAT BLOOD WAS ORDERED FROM BLOOD BANK AND WILL BE IN LATER BEC IT WAS ORDERED FROM [facility]. PATIENT NO BLEEDING AT THIS TIME
[2019-03-25] MEDS ORDERED: ATORVASTATIN 10 MG TABLET PO ONE (22:30)
[2019-03-25] MEDS: BLOOD SUGAR DIAGNOSTIC 1 EACH STRIP VI SCH (22:33)
[2019-03-25] MEDS: *INSULIN REGULAR(HUMULIN R)HUM 100 UNIT/ML VIAL SQ PRN (22:39)
[2019-03-25] MEDS: ATORVASTATIN 10 MG TABLET PO SCH (22:43)
[2019-03-26] VITALS (10 sets, daily range): BP systolic 96–128; BP diastolic 30–54
[2019-03-26] MEDS: SODIUM POLYSTYRENE SULFONATE 15 G/60 ML BOTTLE PO ONE (00:30)
[2019-03-26] MEDS ORDERED: SODIUM POLYSTYRENE SULFONATE 15 G/60 ML BOTTLE ONE (02:09)
--- NOTE | 2019-03-26 07:10 | NUR ---
PENELOPE RN INITIAL NOTES: Rec'd pt on bed, not in any distress, A/O x 2-3 (Mohawk speaking). No SOB while on R/A. Apacing/SR on telemonitor. LFA G20, SL, flushing well w/ no s/sx of infection/infiltration noted. Safety precaution in place w/ bed in lowest & locked pos. Call light placed w/in reach. Will cont to monitor & attend pt needs. K 5.6 - per previous RN, pt refused taking Kayexalate. Tried giving her the med but pt still refused. Repeat CBC at [facility] this AM. Will follow up for results. 0800 Straight cath done to collect urine for UA/cx. Sent to lab.
--- NOTE | 2019-03-26 07:11 | NUR ---
RN NOTES ADMITTED A 73 YEAR OLD FEMALE FROM ER ACCOMPANIED BY SONS AND STAFF VIA STRETCHER IN STABLE CONDITION. IN NO APPARENT DISTRESS BREATHING EVEN AND UNLABORED. ON ROOM AIR, TOLERATING WELL. VITAL SIGNS WITHIN NORMAL LEVEL. ALERT AND ORIENTED, VERBALLY ABLE TO COMMUNICATE NEEDS. CYMRAES SPEAKING. PATIENT WAS COMPLAINING OF ABDOMINAL PAIN AND SHORTNESS OF BREATH, ADMITTED FOR ANEMIA. HEMOGLOBIN 5.8, TRANSFUSE 1 PACK PRB, NO ADVERSE EFFECT NOTED. WAITING FOR RESULT OF ANOTHER CBC. PATIENT POTASSIUM LEVEL WAS HIGH 5.6, WITH ORDERS FOR KAYEXALATE 30 G/ 120ML. PATIENT REFUSED TO TAKE THE MEDICATION. CALLED FAMILY, SPOKE TO SON JANNA AND RELAYED PATIENT'S REFUSAL TO TAKE THE MEDICATION, SON SAID IF PATIENT DOES NOT LIKE TO TAKE IT, DO NOT GIVE IT TO HER. HE SAID "WE WILL COME IN AM, AND WE WILL TAKE CARE OF IT." CALLED MD, SPOKE WITH DR MARQUEZ AND MADE AWARE OF PATIENT'S REFUSAL TO TAKE THE MEDICATION AND THE FAMILY'S RESPONSE. ENDORSED TO AM SHIFT FOR CONTINUITY OF CARE.
[2019-03-26] MEDS ORDERED: LEVOTHYROXINE SODIUM 125 MCG TABLET PO SCH (07:30)
[2019-03-26] MEDS: LEVOTHYROXINE SODIUM 125 MCG TABLET PO SCH (07:53)
[2019-03-26] MEDS: BLOOD SUGAR DIAGNOSTIC 1 EACH STRIP VI SCH ×4 (07:55→22:04)
[2019-03-26] MEDS: INSULIN REGULAR, HUMAN 100 UNIT/ML 3 ML VIAL SQ PRN ×3 (07:57→17:35)
[2019-03-26] MEDS: FOLIC ACID 1 MG TABLET PO SCH (08:00)
[2019-03-26] MEDS: PANTOPRAZOLE 40 MG VIAL IV SCH (08:00)
[2019-03-26 08:15] LABS: BASOPHILS % (AUTO) 0.5 % (0.0-2.0); EOSINOPHILS % (AUTO) 3.3 % (0.0-6.0); HEMATOCRIT 21 % (33-45); LYMPHOCYTES # (AUTO) 0.6 /CMM (0.8-4.8); LYMPHOCYTES % (AUTO) 14.3 % (20.0-44.0); MEAN CORPUSCULAR HGB CONC 33 g/dl (31.0-36.0); MEAN CORPUSCULAR VOLUME 86 fL (82-100); MONOCYTES # (AUTO) 0.3 /CMM (0.1-1.30); MONOCYTES % (AUTO) 6.9 % (2.0-12.0); NEUTROPHILS # (AUTO) 3.1 /CMM (1.8-8.9); PLATELET COUNT (AUTO) 103 /CMM (150-450); RED BLOOD CELL COUNT(AUTO) 2.49 MIL/uL (4.0-5.2); WHITE BLOOD COUNT (AUTO) 4.2 K/uL (4.3-11.0)
[2019-03-26 08:44] LABS: CALCIUM, SERUM 8.7 mg/dL (8.5-10.1); CARBON DIOXIDE 22 mmol/L (21-32); CHLORIDE 107 mmol/L (98-107); CREATININE 1.8 mg/dL (0.6-1.3); GLUCOSE 147 mg/dL (74-106); MAGNESIUM 2.2 mg/dL (1.8-2.4); PHOSPHORUS 4.3 mg/dL (2.5-4.9); POTASSIUM 5.1 mmol/L (3.5-5.1); SODIUM SERUM 140 mmol/L (136-145); UREA NITROGEN, BLOOD 79 mg/dL (7-18)
[2019-03-26 09:45] LABS: APPEARANCE,URINE SL CLOUDY (CLEAR); BILIRUBIN,URINE NEGATIVE (NEGATIVE); BLOOD, URINE TRACE-INTA Ery/uL (NEGATIVE); COLOR,URINE YELLOW (YELLOW); KETONES,URINE NEGATIVE (NEGATIVE); LEUKOCYTE ESTERASE ,URINE 1+ (NEGATIVE); NITRITE, URINE NEGATIVE (NEGATIVE); PH,URINE 5.5 (5.0-8.0); PROTEIN,URINE TRACE mg/dl (NEGATIVE); UGLUCOSE NEGATIVE (NEGATIVE); UROBILINOGEN,URINE 0.2 EU/dL (0.2)
[2019-03-26 09:45] LABS: EOSINOPHILS % (MANUAL) 5 % (0-4); LYMPHOCYTES % (MANUAL) 19 % (16-48); MONOCYTES % (MANUAL) 5 % (0-11.0); NEUTROPHILS % (MANUAL) 72 (42-76)
[2019-03-26 10:06] LABS: BACTERIA,URINE Many /HPF (None Seen)
[2019-03-26 10:07] LABS: RBC,URINE 0-2 /HPF (0-2)
[2019-03-26 10:09] LABS: SQUAMOUS EPITHELIAL CELL,UR Few /HPF (None Seen); WBC,URINE 20-40 /HPF (0-3)
--- NOTE | 2019-03-26 13:22 | NUR ---
Pt seen & examined by Dr. Street, updated about pt condition & status. MD is ok w/ Hgb 7, no need for BT for now. informed that pt refused kayexalate this AM for K 5.6, rpt K is 5.1.
[2019-03-26] MEDS ORDERED: CEFTRIAXONE 1 G in IV D5W 50 ML IV SCH (14:00)
--- NOTE | 2019-03-26 15:16 | NUR ---
While infusing the IV Abx Rocephin, pt noted scratching & expressing she is feeling hot. Called pt's son [place] to help translate. Confirmed w/ him that per pt she is having allergic rxn. IV med stopped immediately. Dr. Street made aware w/ orders to stop IV Abx & give Benadryl 25mg IVP x 1. Spoke w/ pharmacist
[2019-03-26] MEDS ORDERED: diphenhydrAMINE HCL 50 MG/ML VIAL IV ONE (15:30)
[2019-03-26 17:43] LABS: CREATININE, URINE 59.2 MG/DL (30.0-125.0)
--- NOTE | 2019-03-26 17:48 | NUR ---
Called Dr. Turpin office#, answering service said that MD is not in the office today & the covering MD is Dr. Joel. Gave [facility] contact infos, awaiting for CB. Rec'd callback from Dr. Perez Joel stated that he is not covering for Dr. Turpin today. Per MD, to inform admitting MD from [facility] to have see pt today.
--- NOTE | 2019-03-26 17:55 | NUR ---
Rec'd call back from Dr. Ellis, made him aware about pt status. Per , CBC & BMP mariusz GONZALEZ.
--- NOTE | 2019-03-26 18:32 | NUR ---
PENELOPE RN CLOSING NOTES Pt resting comfortably on her bed, not in any distress, denies any pain/discomfort, remains A/O x2-3. No SOB while on R/A. Apacing/SR on the monitor. IV line access on LFA G20 SL kept patent & intact w/ no s/sx of infection/infiltration noted. No active bleeding noted. Safety precaution kept in place at all times w/ bed in lowest & locked pos. Call light placed w/in reach. Will endorse to PM RN for HOMER.
[2019-03-26] MEDS: ATORVASTATIN 10 MG TABLET PO SCH (21:13)
[2019-03-26] MEDS ORDERED: ATORVASTATIN 10 MG TABLET PO SCH (22:00)
[2019-03-26] MEDS: *INSULIN REGULAR(HUMULIN R)HUM 100 UNIT/ML VIAL SQ PRN (22:03)
[2019-03-27] VITALS (16 sets, daily range): BP systolic 115–156; BP diastolic 32–93
[2019-03-27 06:49] LABS: BASOPHILS % (AUTO) 0.2 % (0.0-2.0); HEMATOCRIT 21 % (33-45); LYMPHOCYTES # (AUTO) 0.4 /CMM (0.8-4.8); LYMPHOCYTES % (AUTO) 9.2 % (20.0-44.0); MEAN CORPUSCULAR HGB CONC 32 g/dl (31.0-36.0); MEAN CORPUSCULAR VOLUME 87 fL (82-100); MONOCYTES # (AUTO) 0.3 /CMM (0.1-1.30); MONOCYTES % (AUTO) 7.4 % (2.0-12.0); NEUTROPHILS # (AUTO) 3.3 /CMM (1.8-8.9); NEUTROPHILS % (AUTO) 80.2 % (43.0-81.0); PLATELET COUNT (AUTO) 100 /CMM (150-450); RED BLOOD CELL COUNT(AUTO) 2.41 MIL/uL (4.0-5.2); WHITE BLOOD COUNT (AUTO) 4.1 K/uL (4.3-11.0)
[2019-03-27 07:01] LABS: HEMOGLOBIN 6.6 g/dL (11.5-14.8)
[2019-03-27 07:07] LABS: CALCIUM, SERUM 8.8 mg/dL (8.5-10.1); CARBON DIOXIDE 23 mmol/L (21-32); CHLORIDE 107 mmol/L (98-107); CREATININE 1.7 mg/dL (0.6-1.3); GLUCOSE 166 mg/dL (74-106); POTASSIUM 4.9 mmol/L (3.5-5.1); SODIUM SERUM 140 mmol/L (136-145); UREA NITROGEN, BLOOD 72 mg/dL (7-18)
--- NOTE | 2019-03-27 07:15 | NUR ---
PENELOPE RN INITIAL NOTES PT RECEIVED A/O X2. NO SOB OR ACUTE SIGNS OF DISTRESS NOTED. BREATHING IS EVEN AND UNLABORED. SHE DENIES ANY PAIN AT THIS TIME. PERIPHERAL IV NOTED TO BE C/D/I. NO REDNESS OR SIGNS OF INFILTRATION NOTED. LOW H/H REPORTED BY NIGHTSHIFT RN TO FINANCIAL AGENT MD. WILL F/U WITH PRIMARY. VSS. BED IN LOW LOCKED POSITION, SIDE RAILS UP X2, CALL LIGHT WITHIN REACH. WILL CONTINUE TO MONITOR
[2019-03-27 08:52] LABS: EOSINOPHILS % (MANUAL) 1 % (0-4); LYMPHOCYTES % (MANUAL) 11 % (16-48); MONOCYTES % (MANUAL) 7 % (0-11.0); NEUTROPHILS % (MANUAL) 81 (42-76)
[2019-03-27] MEDS: BLOOD SUGAR DIAGNOSTIC 1 EACH STRIP VI SCH ×4 (08:56→22:36)
[2019-03-27] MEDS: LEVOTHYROXINE SODIUM 125 MCG TABLET PO SCH (08:57)
[2019-03-27] MEDS: FOLIC ACID 1 MG TABLET PO SCH (08:57)
[2019-03-27] MEDS: PANTOPRAZOLE 40 MG VIAL IV SCH (08:57)
[2019-03-27] MEDS: FLUTICASONE/VILANTEROL 1 EACH BLST.W.DEV IH SCH (09:00)
--- NOTE | 2019-03-27 10:23 | NUR ---
PENELOPE RN NOTES: BLOOD TRANSFUSION ORDER ORDER RECEIVED FROM DR REYNA TO TRANSFUSE 2UNITS OF PRBC
[2019-03-27] MEDS: CEPHALEXIN MONOHYDRATE 250 MG CAPSULE PO SCH ×2 (11:54→21:40)
[2019-03-27] MEDS: INSULIN REGULAR, HUMAN 100 UNIT/ML 3 ML VIAL SQ PRN ×3 (11:54→22:41)
--- NOTE | 2019-03-27 18:51 | NUR ---
AUTOMATION ENGINEERING TECHNICIAN CLOSING NOTES PT REMAINS STABLE. ALL DUE MEDS GIVEN. NEEDS ANTICIPATED FOR AND MET. VSS REMAINED STABLE THROUGHOUT SHIFT. ONE UNIT OF PRBC ADMINISTERED. NO TRANSFUSION REACTIONS WITNESSED OR REPORTED BY PT. SECOND INFUSION ONGOING. SAFETY MEASURES REMAIN IN PLACE. WILL ENCORE TO NIGHTSHIFT RN FOR HOMER AND FINISH SECOND PRBC INFUSION
--- NOTE | 2019-03-27 19:45 | NUR ---
SECONDARY SCHOOL TEACHER LIBRARIAN OPENING NOTES RESERVED PATIENT IN BED RESTING COMFORTABLY, PATIENT STABLE. A/O X3. TELE MONITOR IS SR AT THIS TIME, NO ACUTE DISTRESS NOTED. ONE UNIT OF PRBC ADMINISTERED DURING DAY SHIFT. NO TRANSFUSION REACTIONS WITNESSED OR REPORTED BY PT. SECOND INFUSION IS ONGOING 125 ML/HR. SAFETY MEASURES REMAIN IN PLACE. WILL CONTINUE TO MONITOR.
[2019-03-27] MEDS: ATORVASTATIN 10 MG TABLET PO SCH (21:40)
[2019-03-28] VITALS: BP 141/54
[2019-03-28 00:19] VITALS: BP 141/54
[2019-03-28 04:00] VITALS: BP 141/61
[2019-03-28 04:11] VITALS: BP 141/61
[2019-03-28] MEDS: CEPHALEXIN MONOHYDRATE 250 MG CAPSULE PO SCH ×2 (04:43→12:18)
[2019-03-28 06:48] LABS: BASOPHILS % (AUTO) 0.3 % (0.0-2.0); EOSINOPHILS % (AUTO) 3.7 % (0.0-6.0); HEMATOCRIT 27 % (33-45); HEMOGLOBIN 8.8 g/dL (11.5-14.8); LYMPHOCYTES # (AUTO) 0.5 /CMM (0.8-4.8); LYMPHOCYTES % (AUTO) 10.7 % (20.0-44.0); MEAN CORPUSCULAR HGB CONC 33 g/dl (31.0-36.0); MEAN CORPUSCULAR VOLUME 88 fL (82-100); MONOCYTES # (AUTO) 0.4 /CMM (0.1-1.30); MONOCYTES % (AUTO) 9.7 % (2.0-12.0); NEUTROPHILS # (AUTO) 3.5 /CMM (1.8-8.9); NEUTROPHILS % (AUTO) 75.6 % (43.0-81.0); PLATELET COUNT (AUTO) 88 /CMM (150-450); RED BLOOD CELL COUNT(AUTO) 3.05 MIL/uL (4.0-5.2); WHITE BLOOD COUNT (AUTO) 4.6 K/uL (4.3-11.0)
--- NOTE | 2019-03-28 07:09 | NUR ---
ASSEMBLING FABRICATOR CLOSING NOTES PATIENT IN BED RESTING COMFORTABLY, PATIENT STABLE. A/O X3-4. TELE MONITOR IS SR AT THIS TIME, NO ACUTE DISTRESS NOTED. TWO UNITS OF BLOOD WAS TRANSFUSED AND Hgb IS 8.8 THIS MORNING. SAFETY MEASURES REMAIN IN PLACE. WILL ENDORSE THE PATIENT TO AM RN FOR HOMER.
[2019-03-28] MEDS: LEVOTHYROXINE SODIUM 125 MCG TABLET PO SCH (07:40)
[2019-03-28] MEDS: BLOOD SUGAR DIAGNOSTIC 1 EACH STRIP VI SCH ×2 (07:40→12:18)
[2019-03-28 08:00] VITALS: BP 144/61
--- NOTE | 2019-03-28 08:02 | NUR ---
ICU/RN INITIAL NOTES, AM RESERVED BEDSIDE REPORT, PATIENT IN BED RESTING COMFORTABLY, PATIENT A/O X4, CUBAN SPEAKING ONLY. ON TELE, SINUS. NO ACUTE DISTRESS NOTED. PT ON ROOM AIR NO RESPIRATORY DISTRESS NOTED. PIV PATENT AND INTACT, NO S/S OF INFECTION OR INFILTRATION NOTED. SAFETY MEASURES TAKEN, BED IN LOW POSITION, SIDE RAILS UP, CALL LIGHT WITHIN REACH. WILL CONTINUE TO MONITOR.
[2019-03-28] MEDS: FOLIC ACID 1 MG TABLET PO SCH (08:08)
[2019-03-28] MEDS: FLUTICASONE/VILANTEROL 1 EACH BLST.W.DEV IH SCH (08:09)
[2019-03-28] MEDS: PANTOPRAZOLE 40 MG VIAL IV SCH (08:09)
[2019-03-28 12:00] VITALS: BP 142/64
[2019-03-28] MEDS ORDERED: PANT40TA2 PO (13:17)
--- NOTE | 2019-03-28 15:00 | NUR ---
ICU/RN: PT ASSESSED BY DR.TIM REYNA. RECEIVED ORDERS TO DISCHARGE PT AND INSTRUCT TO FOLLOW UP PRIMARY MD. CALLED SON AND INFORMED OF MD ORDER. WILL BE HERE TO PICK MOM UP.
--- NOTE | 2019-03-28 15:55 | NUR ---
ICU/RN: DISCHARGE NOTE SON ARTEMIO AT BEDSIDE TO TAKE MOM HOME. ALL EXIT CARE DONE. DISCHARGE EDUCATION GIVEN. MEDICATION PRESCRIPTION GIVEN TO PT AND SON INFORMED. ALL BELONGINGS REVIEWED WITH PT AND SON, FORM SIGNED. WOUND PHOTOS TAKEN AND PLACED IN CHART IN THE AM. ALL NEEDS ATTENDED TO. PT ESCORTED OUT VIA WHEELCHAIR. PIV REMOVED, NO S/S OF BLEEDING NOTED.
== END 2019-03-28 15:38 | disposition home or self-care (01) | DRG 377 ==
LOC: ER 17:49 → TELE-TD 21:31 → TELE1 03-27 17:30 → MEDSG1 03-28 12:00
PROVIDERS: ADMIT Internal Medicine; ATTEND Nurse Practitioner Acute Care
PROC: 30233N1 Transfusion of Nonautologous Red Blood Cells into Peripheral Vein, Percutaneous Approach (ICD-10-PCS; principal; 2019-03-26)
DX: K27.4 Chronic or unspecified peptic ulcer, site unspecified, with hemorrhage (principal); G93.41 Metabolic encephalopathy; N17.0 Acute kidney failure with tubular necrosis; E43 Unspecified severe protein-calorie malnutrition; D62 Acute posthemorrhagic anemia; N39.0 Urinary tract infection, site not specified; I13.0 Hypertensive heart and chronic kidney disease with heart failure and stage 1 through stage 4 chronic kidney disease, or unspecified chronic kidney disease; R18.8 Other ascites; I48.91 Unspecified atrial fibrillation; K72.90 Hepatic failure, unspecified without coma; E03.9 Hypothyroidism, unspecified; Z86.73 Personal history of transient ischemic attack (TIA), and cerebral infarction without residual deficits; Z95.1 Presence of aortocoronary bypass graft; F09 Unspecified mental disorder due to known physiological condition; E87.5 Hyperkalemia; E88.09 Other disorders of plasma-protein metabolism, not elsewhere classified; N18.9 Chronic kidney disease, unspecified; E11.22 Type 2 diabetes mellitus with diabetic chronic kidney disease; I27.20 Pulmonary hypertension, unspecified; Z79.84 Long term (current) use of oral hypoglycemic drugs; L30.4 Erythema intertrigo; I86.4 Gastric varices; Z79.82 Long term (current) use of aspirin; M81.0 Age-related osteoporosis without current pathological fracture; M79.7 Fibromyalgia; M19.90 Unspecified osteoarthritis, unspecified site; I50.9 Heart failure, unspecified; I25.10 Atherosclerotic heart disease of native coronary artery without angina pectoris; B96.20 Unspecified Escherichia coli [E. coli] as the cause of diseases classified elsewhere
CPT/HCPCS: 36415; 71045-TC; 76700-TC; 80048-TC; 80076-TC; 81000-TC; 82570-TC; 82962-TC; 83735-TC; 84100-TC; 84300-TC; 85025-TC; 85730-TC; 86850-TC; 86880-TC; 86921-TC; 87081-TC; 87086-TC; 87186-TC; C9113; G0378; J0696; J1200; J1815; J7050; J7060; P9016-BL

== ENCOUNTER 2019-05-11 13:35 | Inpatient (IN) | payer MEDICARE, MEDICAID ==
[~2019-05-11] VITALS: Ht 195.6 cm; Wt 75.3 kg
[~2019-05-11 13:35] MED LIST changes: -AMLO5TAB4 PO; -ASPI-605 PO; +PANT40TA2 PO; -PANT40VI; -RANI150T8 PO; -RANITIDINE HCL PO
--- NOTE | 2019-05-11 13:44 | NUR ---
BIB FAMILY, C/O ABDOMINAL DISTENSION, SOB X 2 DAYS, TO ER BED 11, HOOKED TO MONITOR, CHANGED TO HOSPITAL GOWN, AWAITING MD SMITH.
--- NOTE | 2019-05-11 14:25 | NUR ---
DR VERAS AT BEDSIDE
--- NOTE | 2019-05-11 14:43 | NUR ---
JANNA BRUCE (SON) [phone]
[2019-05-11 14:48] LABS: BASOPHILS % (AUTO) 0.4 % (0.0-2.0); EOSINOPHILS % (AUTO) 2.9 % (0.0-6.0); HEMATOCRIT 23 % (33-45); HEMOGLOBIN 7.1 g/dL (11.5-14.8); LYMPHOCYTES # (AUTO) 0.5 /CMM (0.8-4.8); MEAN CORPUSCULAR HGB CONC 30 g/dl (31.0-36.0); MEAN CORPUSCULAR VOLUME 85 fL (82-100); MONOCYTES # (AUTO) 0.3 /CMM (0.1-1.30); NEUTROPHILS % (AUTO) 77.7 % (43.0-81.0); PLATELET COUNT (AUTO) 138 /CMM (150-450); RED BLOOD CELL COUNT(AUTO) 2.75 MIL/uL (4.0-5.2); WHITE BLOOD COUNT (AUTO) 3.9 K/uL (4.3-11.0)
[2019-05-11] MEDS ORDERED: IBUP-1955 PO (14:51)
[2019-05-11] MEDS ORDERED: RANI150T8 PO (14:51)
[2019-05-11 15:05] LABS: CALCIUM, SERUM 8.8 mg/dL (8.5-10.1); CARBON DIOXIDE 28 mmol/L (21-32); CHLORIDE 105 mmol/L (98-107); CREATININE 1.6 mg/dL (0.6-1.3); GLUCOSE 187 mg/dL (74-106); POTASSIUM 4.3 mmol/L (3.5-5.1); SODIUM SERUM 139 mmol/L (136-145); UREA NITROGEN, BLOOD 65 mg/dL (7-18)
[2019-05-11] MEDS ORDERED: FERR325T23 PO (15:05)
[2019-05-11] MEDS ORDERED: PANT40TA2 PO (15:05)
[2019-05-11] MEDS ORDERED: ASPI81TA44 PO (15:05)
[2019-05-11] MEDS ORDERED: TYL2T PO (15:05)
[2019-05-11 15:09] LABS: ALANINE AMINOTRANSFERASE 11 U/L (12-78); ALBUMIN 3.2 g/dL (3.4-5.0); ALKALINE PHOSPHATASE 136 U/L (46-116); ASPARTATE AMINOTRANSFERASE 13 U/L (15-37); BILIRUBIN,DIRECT 0.2 mg/dL (0.0-0.2); BILIRUBIN,TOTAL 0.5 mg/dL (0.2-1.0); LIPASE 273 U/L (73-393); TOTAL PROTEIN, SERUM 8.4 g/dL (6.4-8.2)
--- NOTE | 2019-05-11 15:28 | NUR ---
NURSING SUP GAVE BED 328-1.
[2019-05-11] MEDS ORDERED: PANTOPRAZOLE 40 MG VIAL IV ONE (15:30)
[2019-05-11] MEDS ORDERED: FUROSEMIDE 20 MG/2 ML VIAL IV ONE (15:30)
[2019-05-11] MEDS ORDERED: FUROSEMIDE 40 MG/4 ML VIAL IV ONE (15:30)
[2019-05-11] MEDS ORDERED: FUROSEMIDE 20 MG/2 ML VIAL ONE (15:40)
[2019-05-11] MEDS ORDERED: PANTOPRAZOLE 40 MG VIAL ONE (15:41)
--- NOTE | 2019-05-11 16:00 | NUR ---
REPORT GIVEN TO WERNER OF MS UNIT
--- NOTE | 2019-05-11 16:50 | NUR ---
MS RN OPENING NOTES PATIENT ADMITTED TO UNIT DUE TO C/O ABD DISTENTION AND SOB. PER PATIENT SHE STATED SHE WAS LAST HERE 2 MONTHS AGO FOR PARACENTESIS. ABD SOF AND DISTENDED. PATIENT ABLE TO MANJIT PAIN AT THIS TIME. DENIES ANY C/O SOB DURING ADMISSION TO UNIT. RIGHT AC SL # 20 INTACT AND PATENT. ORIENTED PATIENT TO ROOM, CALL LIGHT AND UNIT. PATIENT VERBALIZES UNDERSTANDING AND FAMILIAR WITH HOSPITAL BECAUSE SHE HAS BEEN HERE BEFORE. ALL BELONGINGS ACCOUNTED FOR. BED IN LOWEST POSITION, LOCKED. BED ALARM ON. CALL LIGHT WITHIN EACH.
--- NOTE | 2019-05-11 16:52 | NUR ---
Spoke to BHARGAVI Sidhu regarding u/s guided paracentesis and told her it will be done tomorrow morning. No radiologist onsite at this time.
[2019-05-11 17:00] VITALS: BP 133/59
[2019-05-11] MEDS ORDERED: HYDROCODONE/APAP 5/325MG 1 EACH TABLET PO PRN (17:00)
[2019-05-11] MEDS ORDERED: ISOSORBIDE DINITRATE (20MG) 20 MG TABLET PO SCH (17:00)
[2019-05-11] MEDS ORDERED: ONDANSETRON HCL/PF 4 MG/2 ML VIAL IVP PRN (17:00)
[2019-05-11] MEDS ORDERED: ZOLPIDEM TARTRATE 5 MG TABLET PO PRN ×2 (17:00→21:00)
[2019-05-11] MEDS ORDERED: MAG HYDROX/AL HYDROX/SIMETH 30 ML UDC PO PRN (17:00)
[2019-05-11] MEDS ORDERED: MAGNESIUM HYDROXIDE 30 ML UDC PO PRN (17:00)
[2019-05-11] MEDS ORDERED: Z GUARD REMEDY 2 OZ OINT TP PRN (17:00)
[2019-05-11] MEDS ORDERED: ACETAMINOPHEN 325 MG TABLET PO PRN ×2 (17:00→21:00)
[2019-05-11] MEDS ORDERED: FERROUS SULFATE (325 MG) 325 MG/TAB TABLET PO SCH (17:00)
[2019-05-11] MEDS ORDERED: REPAGLINIDE 2 MG TABLET PO SCH (17:00)
--- NOTE | 2019-05-11 18:57 | NUR ---
MS RN CLOSING NOTES PATIENT SEEN BY DR. YAÑEZ. PER PATIENT, PATIENT IS UNDER DR. HERRERA AND TO INFORM MD OF PATIENT'S ADMIT TO UNIT. CALLED DR. VARGHESE, Jan OFFICE PER CHILD SUPPORT OFFICER MD DID NOT RESPOND AND TO CALL BACK AGAIN. ENDORSED TO ONCOMING SHIFT. PATIENT RESTING COMFORTABLY IN BED. PAIN TOLERABLE AT THIS TIME AND DECLINED PAIN MED WHEN OFFERED. BED IN LOWEST POSITION, LOCKED. BED ALARM ON. CALL LIGHT WITHIN REACH. IN NO APPARENT DISTRESS. ENDORSED TO ONCOMING SHIFT FOR CONTINUATION OF CARE.
--- NOTE | 2019-05-11 19:15 | NUR ---
CHANGE OF SHIFT REPORT Patient in bed, awake, Turkish speaking, understand and speak some Welsh. On Room air, denies shortness of breath. Per report, home medication to be reviewed with Dr. Turpin, will follow up. Instructed patient to use call light for assistance, verbalized understanding.
[2019-05-11] MEDS ORDERED: IPRATROPIUM NEB FS 0.5 MG/2.5 ML AMPUL.NEB NEB SCH ×2 (19:30→21:00)
[2019-05-11 20:09] VITALS: BP 103/45
--- NOTE | 2019-05-11 20:20 | NUR ---
NEW ORDERS Called Dr. Turpin, home medications reviewed with , new orders noted and faxed to Pharmacy. Laboratory test in AM.
[2019-05-11] MEDS ORDERED: ALBUTEROL FS 2.5 MG/0.5 ML VIAL.NEB NEB PRN (21:00)
[2019-05-11] MEDS ORDERED: IPRATROPIUM NEB FS 0.5 MG/2.5 ML AMPUL.NEB NEB PRN (21:00)
[2019-05-11] MEDS ORDERED: hydrALAZINE HCL 25 MG TABLET PO PRN (21:00)
[2019-05-11] MEDS ORDERED: IPRATROPIUM/ALBUTEROL INHALER IH PRN (21:00)
[2019-05-11] MEDS: FERRLICET 125MG in 100 ML NS IVPB IV SCH (21:26)
[2019-05-11] MEDS: PROPRANOLOL HCL 10 MG TABLET PO SCH (21:31)
[2019-05-11] MEDS ORDERED: ATORVASTATIN 10 MG TABLET PO SCH (22:00)
[2019-05-11] MEDS ORDERED: ALBUMIN 25% 50 ML IV ONE ×2 (22:38→22:39)
[2019-05-11] MEDS: ALBUMIN 25% 25 GM in PREMIX 1 EA IV SCH (22:44)
[2019-05-11] MEDS: ALBUTEROL FS 2.5 MG/0.5 ML VIAL.NEB NEB SCH ×2 (23:30→23:55)
[2019-05-11] MEDS: IPRATROPIUM NEB FS 0.5 MG/2.5 ML AMPUL.NEB NEB SCH ×2 (23:30→23:55)
[2019-05-12] VITALS (14 sets, daily range): BP systolic 102–140; BP diastolic 39–64
[2019-05-12] MEDS ORDERED: ALBUMIN 25% 50 ML IV ONE ×2 (04:37→04:38)
[2019-05-12] MEDS: PROPRANOLOL HCL 10 MG TABLET PO SCH ×3 (05:23→21:00)
[2019-05-12] MEDS: ALBUMIN 25% 25 GM in PREMIX 1 EA IV SCH ×3 (05:48→20:44)
--- NOTE | 2019-05-12 06:28 | NUR ---
END OF SHIFT REPORT Patient in bed, stable oxygen saturation on RA. Refused Neb. education provided. Low Hemoglobin 7.1 Dr. Turpin aware. Started on IV Ferrlecit. Abdomen soft and distended, denies pain. Plan US Guided Paracentesis today. Consent in the chart. PT, wound consult to follow.
[2019-05-12 07:10] LABS: ALANINE AMINOTRANSFERASE 8 U/L (12-78); ALBUMIN 3.4 g/dL (3.4-5.0); ALKALINE PHOSPHATASE 104 U/L (46-116); ASPARTATE AMINOTRANSFERASE 9 U/L (15-37); BILIRUBIN,TOTAL 0.5 mg/dL (0.2-1.0); CALCIUM, SERUM 8.9 mg/dL (8.5-10.1); CARBON DIOXIDE 25 mmol/L (21-32); CHLORIDE 108 mmol/L (98-107); CREATININE 1.7 mg/dL (0.6-1.3); GLUCOSE 64 mg/dL (74-106); MAGNESIUM 2.1 mg/dL (1.8-2.4); PHOSPHORUS 4.4 mg/dL (2.5-4.9); POTASSIUM 4.2 mmol/L (3.5-5.1); SODIUM SERUM 141 mmol/L (136-145); TOTAL PROTEIN, SERUM 7.9 g/dL (6.4-8.2); UREA NITROGEN, BLOOD 68 mg/dL (7-18)
[2019-05-12 07:12] LABS: BASOPHILS % (AUTO) 0.4 % (0.0-2.0); EOSINOPHILS % (AUTO) 2.7 % (0.0-6.0); LYMPHOCYTES # (AUTO) 0.4 /CMM (0.8-4.8); LYMPHOCYTES % (AUTO) 11.6 % (20.0-44.0); MEAN CORPUSCULAR HGB CONC 31 g/dl (31.0-36.0); MEAN CORPUSCULAR VOLUME 83 fL (82-100); MONOCYTES # (AUTO) 0.3 /CMM (0.1-1.30); MONOCYTES % (AUTO) 8.2 % (2.0-12.0); NEUTROPHILS # (AUTO) 2.7 /CMM (1.8-8.9); NEUTROPHILS % (AUTO) 77.1 % (43.0-81.0); PLATELET COUNT (AUTO) 121 /CMM (150-450); RED BLOOD CELL COUNT(AUTO) 2.37 MIL/uL (4.0-5.2); WHITE BLOOD COUNT (AUTO) 3.5 K/uL (4.3-11.0)
[2019-05-12 07:23] LABS: CHOLESTEROL 96 mg/dL (<200); HDL CHOLESTEROL 34 mg/dL (40-60); LDL 53 mg/dL (0-99); THYROID STIMULATING HORMONE 1.922 uIU/mL (0.358-3.74); TRIGLYCERIDES 69 mg/dL (30-150)
[2019-05-12] MEDS: ALBUTEROL FS 2.5 MG/0.5 ML VIAL.NEB NEB SCH ×3 (07:35→23:30)
[2019-05-12] MEDS: IPRATROPIUM NEB FS 0.5 MG/2.5 ML AMPUL.NEB NEB SCH ×3 (07:35→23:30)
[2019-05-12 07:37] LABS: HEMATOCRIT 20 % (33-45); HEMOGLOBIN 6.1 g/dL (11.5-14.8)
--- NOTE | 2019-05-12 08:00 | NUR ---
MS RN OPENING NOTES Received Patient resting in bed. A/O x 3. VS stable with no acute distress. Breathing even and unlabored on room air with no respiratory distress. Denies pain. No signs and symptoms of pain. 20g PIV on RAC clean, dry, intact and flushing well. Safety precautions in place. Bed locked and set to lowest position with side rails x 2 up. All needs rendered at this time. Call light within reach. Will continue to monitor.
[2019-05-12] MEDS ORDERED: LINAGLIPTIN 5 MG TABLET PO SCH (09:00)
[2019-05-12] MEDS ORDERED: MECLIZINE HCL 25 MG TABLET PO PRN (09:00)
[2019-05-12] MEDS ORDERED: FLUTICASONE/VILANTEROL 1 EACH BLST.W.DEV IH SCH (09:00)
[2019-05-12 09:05] LABS: EOSINOPHILS % (MANUAL) 6 % (0-4); LYMPHOCYTES % (MANUAL) 11 % (16-48); MONOCYTES % (MANUAL) 10 % (0-11.0); NEUTROPHILS % (MANUAL) 73 (42-76)
[2019-05-12] MEDS: SPIRONOLACTONE 25 MG TABLET PO SCH ×2 (09:10→09:30)
[2019-05-12] MEDS: BUMETANIDE (1 MG) 1 MG TABLET PO SCH (09:10)
[2019-05-12] MEDS: FOLIC ACID 1 MG TABLET PO SCH (09:10)
[2019-05-12] MEDS: LEVOTHYROXINE SODIUM 125 MCG TABLET PO SCH (09:10)
[2019-05-12] MEDS: PANTOPRAZOLE 40 MG TABLET.DR PO SCH (09:10)
[2019-05-12] MEDS: ENALAPRIL MALEATE (5 MG) 5 MG TABLET PO SCH (09:11)
--- NOTE | 2019-05-12 09:40 | NUR ---
SOFTWARE ENGINEERING SPECIALIST NOTES Notified Papi ELLIOTT of critical labs, Hgb 6.1/Hct 20. Per MD, 2unit PRBC. Other orders include, Albumin, WBC and C&S of ascitic fluid. Placed Patient on Telemonitor, reading SR with HR-65. Consults ordered. OT ordered. All orders read back to MD, orders noted and carried out. Will continue to monitor.
[2019-05-12 09:41] LABS: IRON, SERUM 292 ug/dl (50-175); TOTAL IRON BINDING CAPACITY 320 ug/dl (250-450)
--- NOTE | 2019-05-12 11:00 | NUR ---
MS RN NOTES S/P Paracentesis, 1.8L removed. Patient tolerated well. Patient in stable condition. Will continue to monitor.
--- NOTE | 2019-05-12 12:18 | NUR ---
MS RN NOTES 1.8L ascitic fluid taken to lab at this time
[2019-05-12] MEDS: CLOTRIMAZOLE 1% 15 GM TUBE TP SCH ×2 (12:57→16:40)
--- NOTE | 2019-05-12 13:10 | NUR ---
DISASTER DIRECTOR NOTES Began transfusion of 1 unit PRBC. No signs and symptoms of allergic reaction. VS stable with no acute distress. Breathing even and unlabored on room air with no respiratory distress. PIV clean, dry, intact and flushing well. Patient in stable condition. Will continue to monitor.
--- NOTE | 2019-05-12 16:50 | NUR ---
JEWELER APPRENTICE NOTES 1unit PRBC transfused. No signs and symptoms of allergic reaction. VS stable with no acute distress. Breathing even and unlabored on room air with no respiratory distress. Patient in stable condition. Will continue to monitor.
[2019-05-12] MEDS: FERRLICET 125MG in 100 ML NS IVPB IV SCH (18:24)
[2019-05-12 19:09] LABS: HEMOGLOBIN 7.3 g/dL (11.5-14.8)
--- NOTE | 2019-05-12 19:26 | NUR ---
CNC MILLING MACHINIST CLOSING NOTES Patient asleep and resting in bed. A/O x 3. VS stable with no acute distress. Breathing even and unlabored on room air with no respiratory distress. Denies pain. No signs and symptoms of pain. 20g PIV on RAC clean, dry, intact and flushing well. Safety precautions in place. Bed locked and set to lowest position with side rails x 2 up. All needs rendered at this time. Call light within reach. Will endorse plan of care to oncoming shift.
--- NOTE | 2019-05-12 19:27 | NUR ---
MS RN PATIENT IN BED AWAKE X 3 NO S/S OF DISTRESS, STABLE, CALL LIGHT WITHIN REACH. WILL CONTINUE TO MONITOR ACCORDINGLY.
--- NOTE | 2019-05-12 19:27 | NUR ---
FLAVORING MACHINE OPERATOR PAGED AND SPOKE TO DR. HERRERA CLARIFIED ORDERS IF HE WANTS TO TRANSFUSE 1 PRBC RELAYED NEW HGB 7.[address] PEDROZA TRANSFUSED 1 PRBC.READ BACK AND VERIFIED ORDERS NOTED AND CARRIED OUT
[2019-05-13] VITALS (8 sets, daily range): BP systolic 119–149; BP diastolic 56–64
--- NOTE | 2019-05-13 01:00 | NUR ---
OVERHAULER BUS TRUCK S/P BLOOD TRANSFUSION NO A/R NOTED
[2019-05-13] MEDS: ALBUMIN 25% 25 GM in PREMIX 1 EA IV SCH ×2 (04:06→12:55)
[2019-05-13] MEDS: PROPRANOLOL HCL 10 MG TABLET PO SCH ×2 (04:06→13:00)
--- NOTE | 2019-05-13 06:39 | NUR ---
BMX RIDER ASLEEP AND EASILY AWAKEN, SLEPT WELL, NO S/S OF DISTRESS, NURSING CARE RENDERED, KEPT CLEAN AND DRY AND COMFORTABLE. NEEDS ATTENDED AND ANTICIPATED. ON CARDIAC MONITORING SR 68 IN TELE MONITOR WITH V-PACING. M.D AWARE. SAFETY MEASURES AT ALL TIMES. ENDORSE TO THE NEXT SHIFT.
--- NOTE | 2019-05-13 07:10 | NUR ---
UNCLAIMED PROPERTY OFFICER NOTES PATIENT IN BED ALERT ORIENTED X 3. NO ACUTE DISTRESS NOTED. BREATHING UNLABORED. NO SOB NOTED. IV ACCESS PATENT AND INTACTNO REDNESS, NO SWELLING NOTED. SAFETY MEASURES IN PLACE. CALL LIGHT WITHIN REACH. WILL CONTINUE TO MONITOR ACCORDINGLY
[2019-05-13 07:28] LABS: ALANINE AMINOTRANSFERASE 7 U/L (12-78); ALBUMIN 4.1 g/dL (3.4-5.0); ALKALINE PHOSPHATASE 90 U/L (46-116); ASPARTATE AMINOTRANSFERASE 7 U/L (15-37); BASOPHILS % (AUTO) 0.3 % (0.0-2.0); BILIRUBIN,TOTAL 1.3 mg/dL (0.2-1.0); CALCIUM, SERUM 8.9 mg/dL (8.5-10.1); CARBON DIOXIDE 22 mmol/L (21-32); CHLORIDE 107 mmol/L (98-107); CREATININE 1.9 mg/dL (0.6-1.3); EOSINOPHILS % (AUTO) 3.8 % (0.0-6.0); GLUCOSE 149 mg/dL (74-106); HEMATOCRIT 27 % (33-45); HEMOGLOBIN 8.8 g/dL (11.5-14.8); LYMPHOCYTES # (AUTO) 0.5 /CMM (0.8-4.8); LYMPHOCYTES % (AUTO) 11.7 % (20.0-44.0); MEAN CORPUSCULAR HGB CONC 32 g/dl (31.0-36.0); MEAN CORPUSCULAR VOLUME 81 fL (82-100); MONOCYTES # (AUTO) 0.4 /CMM (0.1-1.30); MONOCYTES % (AUTO) 8.7 % (2.0-12.0); NEUTROPHILS # (AUTO) 3.1 /CMM (1.8-8.9); NEUTROPHILS % (AUTO) 75.5 % (43.0-81.0); PLATELET COUNT (AUTO) 108 /CMM (150-450); POTASSIUM 4.2 mmol/L (3.5-5.1); RED BLOOD CELL COUNT(AUTO) 3.38 MIL/uL (4.0-5.2); SODIUM SERUM 140 mmol/L (136-145); TOTAL PROTEIN, SERUM 7.9 g/dL (6.4-8.2); UREA NITROGEN, BLOOD 67 mg/dL (7-18); WHITE BLOOD COUNT (AUTO) 4.1 K/uL (4.3-11.0)
[2019-05-13] MEDS: ALBUTEROL FS 2.5 MG/0.5 ML VIAL.NEB NEB SCH ×2 (07:35→15:30)
[2019-05-13] MEDS: IPRATROPIUM NEB FS 0.5 MG/2.5 ML AMPUL.NEB NEB SCH ×2 (07:35→15:30)
[2019-05-13] MEDS: LEVOTHYROXINE SODIUM 125 MCG TABLET PO SCH (08:14)
[2019-05-13] MEDS: PANTOPRAZOLE 40 MG TABLET.DR PO SCH (08:14)
[2019-05-13] MEDS: SPIRONOLACTONE 25 MG TABLET PO SCH ×2 (09:00→09:08)
--- NOTE | 2019-05-13 09:00 | NUR ---
MS RN NOTES PATIENT SEEN AND EVALUATED BY DR HERRERA, CLARIFIED ORDERS REGARDING ALDACTONE SAID TO ONLY GIVE ALDACTONE 25MG TOTAL.
[2019-05-13] MEDS: BUMETANIDE (1 MG) 1 MG TABLET PO SCH (09:06)
[2019-05-13] MEDS: FOLIC ACID 1 MG TABLET PO SCH (09:07)
[2019-05-13] MEDS: ENALAPRIL MALEATE (5 MG) 5 MG TABLET PO SCH (09:07)
[2019-05-13] MEDS: CLOTRIMAZOLE 1% 15 GM TUBE TP SCH (09:11)
--- NOTE | 2019-05-13 11:05 | NUR ---
WOUND CARE CONSULT: PT FOLLOWED BY SURGICAL TEAM. DEFER TO SURGICAL TEAM FOR WOUND/SKIN TREATMENT PLAN. WILL SEE PRN. DISCUSSED SKIN PROTECTION WITH NURSING STAFF.
[2019-05-13] MEDS: FERRLICET 125MG in 100 ML NS IVPB IV SCH (14:26)
--- NOTE | 2019-05-13 15:45 | NUR ---
TALKING BOOKS LIBRARY CLERK NOTES PATIENT DISCHARGE HOME WITH STABLE VITAL SIGNS. ALERT ORIENTED X 3. NO ACUTE DISTRESS NOTED. BREATHING UNLABORED. NO SOB NOTED. DISCHARGE INSTRUCTIONS GIVEN TO THE PATIENT AND SON AT BEDSIDE, VERBALIZED UNDERSTANDING. PATIENT REFUSED PHOTO TAKEN, RISKS AND BENEFITS EXPLAINED. ALL BELONGINGS ACCOUNTED FOR. IV ACCESS REMOVED, NO BLEEDING, NO REDNESS, NO SWELLING NOTED. ASSISTED TO THE LOBBY, PICKED UP VIA PRIVATE CAR WITH SON IN STABLE CONDITION.
== END 2019-05-13 15:45 | disposition home health service (06) | DRG 432 ==
LOC: ER 13:35 → MED 15:29 → TELE 05-12 21:33
PROVIDERS: ADMIT Family Medicine; ATTEND Family Medicine
PROC: 30233P1 Transfusion of Nonautologous Frozen Red Cells into Peripheral Vein, Percutaneous Approach (ICD-10-PCS; principal; 2019-05-12)
PROC: 0W9G3ZZ Drainage of Peritoneal Cavity, Percutaneous Approach (ICD-10-PCS; 2019-05-12)
DX: K74.60 Unspecified cirrhosis of liver (principal); I50.43 Acute on chronic combined systolic (congestive) and diastolic (congestive) heart failure; R18.8 Other ascites; Z68.1 Body mass index [BMI] 19.9 or less, adult; I48.92 Unspecified atrial flutter; I13.0 Hypertensive heart and chronic kidney disease with heart failure and stage 1 through stage 4 chronic kidney disease, or unspecified chronic kidney disease; N17.9 Acute kidney failure, unspecified; Z86.73 Personal history of transient ischemic attack (TIA), and cerebral infarction without residual deficits; F03.90 Unspecified dementia, unspecified severity, without behavioral disturbance, psychotic disturbance, mood disturbance, and anxiety; H35.30 Unspecified macular degeneration; E11.42 Type 2 diabetes mellitus with diabetic polyneuropathy; I48.91 Unspecified atrial fibrillation; I25.10 Atherosclerotic heart disease of native coronary artery without angina pectoris; I25.2 Old myocardial infarction; E78.5 Hyperlipidemia, unspecified; I27.20 Pulmonary hypertension, unspecified; K21.9 Gastro-esophageal reflux disease without esophagitis; K59.00 Constipation, unspecified; M19.90 Unspecified osteoarthritis, unspecified site; G89.29 Other chronic pain; M54.5 Low back pain; M79.7 Fibromyalgia; M81.0 Age-related osteoporosis without current pathological fracture; E11.22 Type 2 diabetes mellitus with diabetic chronic kidney disease; E03.9 Hypothyroidism, unspecified; D63.8 Anemia in other chronic diseases classified elsewhere; F43.10 Post-traumatic stress disorder, unspecified; F41.9 Anxiety disorder, unspecified; F32.9 Major depressive disorder, single episode, unspecified; G47.9 Sleep disorder, unspecified; Z95.1 Presence of aortocoronary bypass graft; H16.429 Pannus (corneal), unspecified eye; E66.9 Obesity, unspecified; Z91.81 History of falling; Z87.11 Personal history of peptic ulcer disease; R42 Dizziness and giddiness; R32 Unspecified urinary incontinence; E83.51 Hypocalcemia; L30.4 Erythema intertrigo; E88.09 Other disorders of plasma-protein metabolism, not elsewhere classified; M62.50 Muscle wasting and atrophy, not elsewhere classified, unspecified site; R63.0 Anorexia; E11.51 Type 2 diabetes mellitus with diabetic peripheral angiopathy without gangrene; Z95.0 Presence of cardiac pacemaker; K42.9 Umbilical hernia without obstruction or gangrene; E11.319 Type 2 diabetes mellitus with unspecified diabetic retinopathy without macular edema; I44.0 Atrioventricular block, first degree; I44.7 Left bundle-branch block, unspecified; N18.9 Chronic kidney disease, unspecified
CPT/HCPCS: 36415; 71045-TC; 73600-TC; 74018; 76942-TC; 80048-TC; 80053-TC; 80061-TC; 80076-TC; 82040-TC; 82140-TC; 83540-TC; 83690-TC; 83735-TC; 83880; 84100-TC; 84443-TC; 84484-TC; 85025-TC; 85027-TC; 85730-TC; 86850-TC; 86921-TC; 87070-TC; 87081-TC; 88112-TC; 88305-TC; 88312-TC; 97110-TC; 97116-TC; 97530-TC; 97535-TC; A4216; C9113; G0378; J1940; J2916; J7030; J7050; P9016-BL; P9047

== ENCOUNTER 2019-06-13 13:20 | Inpatient (IN) | payer MEDICARE, MEDICAID ==
[~2019-06-13] VITALS: Ht 154.9 cm; Wt 70.8 kg
[~2019-06-13 13:20] MED LIST changes: +ASPI81TA44 PO; +FERR325T23 PO; +IBUP-1955 PO; -LEVO125T8 PO; +RANI150T8 PO; +TYL2T PO
[2019-06-13 14:04] LABS: BASOPHILS % (AUTO) 0.3 % (0.0-2.0); EOSINOPHILS % (AUTO) 2.2 % (0.0-6.0); HEMATOCRIT 21 % (33-45); LYMPHOCYTES # (AUTO) 0.4 /CMM (0.8-4.8); LYMPHOCYTES % (AUTO) 10.8 % (20.0-44.0); MEAN CORPUSCULAR HGB CONC 31 g/dl (31.0-36.0); MEAN CORPUSCULAR VOLUME 89 fL (82-100); MONOCYTES # (AUTO) 0.2 /CMM (0.1-1.30); MONOCYTES % (AUTO) 4.9 % (2.0-12.0); NEUTROPHILS # (AUTO) 2.8 /CMM (1.8-8.9); NEUTROPHILS % (AUTO) 81.8 % (43.0-81.0); PLATELET COUNT (AUTO) 102 /CMM (150-450); RED BLOOD CELL COUNT(AUTO) 2.38 MIL/uL (4.0-5.2); WHITE BLOOD COUNT (AUTO) 3.5 K/uL (4.3-11.0)
[2019-06-13 14:09] LABS: HEMOGLOBIN 6.6 g/dL (11.5-14.8)
--- NOTE | 2019-06-13 14:14 | NUR ---
bib ra from home, cough with congestion x 3 days. On room air, breathing evenly and unlabored. connected to the monitor and pulse ox. kept comfortable, will continue to monitor accordingly.
[2019-06-13 14:26] LABS: ALANINE AMINOTRANSFERASE 15 U/L (12-78); ALBUMIN 3.4 g/dL (3.4-5.0); ALKALINE PHOSPHATASE 117 U/L (46-116); ASPARTATE AMINOTRANSFERASE 15 U/L (15-37); BILIRUBIN,DIRECT 0.2 mg/dL (0.0-0.2); BILIRUBIN,TOTAL 0.4 mg/dL (0.2-1.0); CALCIUM, SERUM 9.5 mg/dL (8.5-10.1); CARBON DIOXIDE 21 mmol/L (21-32); CHLORIDE 107 mmol/L (98-107); CREATININE 2.1 mg/dL (0.6-1.3); GLUCOSE 222 mg/dL (74-106); POTASSIUM 5.1 mmol/L (3.5-5.1); SODIUM SERUM 140 mmol/L (136-145); TOTAL PROTEIN, SERUM 8.2 g/dL (6.4-8.2)
[2019-06-13 14:29] LABS: UREA NITROGEN, BLOOD 115 mg/dL (7-18)
[2019-06-13 14:33] LABS: EOSINOPHILS % (MANUAL) 4 % (0-4); LYMPHOCYTES % (MANUAL) 10 % (16-48); MONOCYTES % (MANUAL) 6 % (0-11.0); NEUTROPHILS % (MANUAL) 80 (42-76)
--- NOTE | 2019-06-13 14:54 | NUR ---
GLENDA HERRERA [phone]
--- NOTE | 2019-06-13 15:00 | NUR ---
CALLED FOR TELE BED.
--- NOTE | 2019-06-13 15:08 | NUR ---
[facility] BED 115-1
--- NOTE | 2019-06-13 16:49 | NUR ---
report given to Placido BURK for ciera.
[2019-06-13 17:00] VITALS: BP 120/58
--- NOTE | 2019-06-13 17:00 | NUR ---
RN NOTES RECEIVED PT FROM ER IN ROOM 115-2, PT IS ALERT , MACEDONIAN SPEAKING , ON RA, NO SOB NOTED RESPIRATION EVEN AND UNLABORED , ON TELE SR HR IN 70'S, R AC IV SITE G 18 CLEAN ,DRY AND INTACT, SACRAL REDNESS NOTED ,PICTURE TAKEN AND PLACED IN THE CHART, SR UP x3, CALL LIGHT WITHIN EASY REACH, CONTINUE TO MONITOR .
--- NOTE | 2019-06-13 17:05 | NUR ---
wheeled patient via gurney accompanied by RN and emt in no distress, lilli RN at bedside to assume care.
[2019-06-13 17:30] VITALS: BP 120/58
[2019-06-13] MEDS ORDERED: HYDROCODONE/APAP 5/325MG 1 EACH TABLET PO PRN (18:00)
[2019-06-13] MEDS ORDERED: ACETAMINOPHEN 325 MG TABLET PO PRN (18:00)
[2019-06-13] MEDS ORDERED: MAGNESIUM HYDROXIDE 30 ML UDC PO PRN (18:00)
[2019-06-13] MEDS ORDERED: Z GUARD REMEDY 2 OZ OINT TP PRN (18:00)
[2019-06-13] MEDS ORDERED: MAG HYDROX/AL HYDROX/SIMETH 30 ML UDC PO PRN (18:00)
[2019-06-13] MEDS ORDERED: ZOLPIDEM TARTRATE 5 MG TABLET PO PRN (18:00)
[2019-06-13] MEDS ORDERED: ONDANSETRON HCL/PF 4 MG/2 ML VIAL IVP PRN (18:00)
--- NOTE | 2019-06-13 18:35 | NUR ---
RN NOTES PT STABLE, WILL ENDOSE TO COMPLEX MANAGER NURSE FOR CONTINUITY OF CARE .
[2019-06-13 19:00] VITALS: BP 120/51
[2019-06-13 20:00] VITALS: BP 120/51
[2019-06-13] MEDS ORDERED: PANT40TA4 PO (20:46)
[2019-06-13] MEDS ORDERED: SPIR25TA6 PO (20:46)
[2019-06-13] MEDS ORDERED: PROP10TA10 PO (20:46)
[2019-06-13] MEDS ORDERED: FOLI1CAP7 PO (20:46)
[2019-06-13] MEDS ORDERED: FERR325T6 PO (20:46)
[2019-06-13] MEDS ORDERED: AMLO5TAB9 PO (20:46)
[2019-06-13] MEDS ORDERED: HYDR-4076 PO (20:46)
[2019-06-13 20:48] LABS: BASOPHILS % (AUTO) 0.3 % (0.0-2.0); EOSINOPHILS % (AUTO) 2.3 % (0.0-6.0); LYMPHOCYTES # (AUTO) 0.5 /CMM (0.8-4.8); LYMPHOCYTES % (AUTO) 15.4 % (20.0-44.0); MEAN CORPUSCULAR HGB CONC 31 g/dl (31.0-36.0); MEAN CORPUSCULAR VOLUME 89 fL (82-100); MONOCYTES # (AUTO) 0.2 /CMM (0.1-1.30); MONOCYTES % (AUTO) 7.1 % (2.0-12.0); NEUTROPHILS # (AUTO) 2.6 /CMM (1.8-8.9); NEUTROPHILS % (AUTO) 74.9 % (43.0-81.0); PLATELET COUNT (AUTO) 93 /CMM (150-450); RED BLOOD CELL COUNT(AUTO) 2.11 MIL/uL (4.0-5.2); WHITE BLOOD COUNT (AUTO) 3.4 K/uL (4.3-11.0)
[2019-06-13 20:51] LABS: IRON, SERUM 22 ug/dl (50-175); TOTAL IRON BINDING CAPACITY 268 ug/dl (250-450)
[2019-06-13 20:52] LABS: CALCIUM, SERUM 8.7 mg/dL (8.5-10.1); CARBON DIOXIDE 25 mmol/L (21-32); CHLORIDE 109 mmol/L (98-107); CREATININE 2.1 mg/dL (0.6-1.3); GLUCOSE 200 mg/dL (74-106); MAGNESIUM 2.2 mg/dL (1.8-2.4); PHOSPHORUS 4.4 mg/dL (2.5-4.9); POTASSIUM 4.9 mmol/L (3.5-5.1); SODIUM SERUM 143 mmol/L (136-145)
[2019-06-13 20:58] LABS: UREA NITROGEN, BLOOD 114 mg/dL (7-18)
[2019-06-13 21:02] LABS: HEMOGLOBIN 5.8 g/dL (11.5-14.8)
[2019-06-13 21:03] LABS: HEMATOCRIT 19 % (33-45)
[2019-06-13 21:10] LABS: EOSINOPHILS % (MANUAL) 2 % (0-4); LYMPHOCYTES % (MANUAL) 15 % (16-48); MONOCYTES % (MANUAL) 8 % (0-11.0); NEUTROPHILS % (MANUAL) 75 (42-76)
[2019-06-13 21:42] LABS: THYROID STIMULATING HORMONE 0.614 uIU/mL (0.358-3.74)
--- NOTE | 2019-06-13 22:00 | NUR ---
REAL ESTATE ECONOMIST NOTE NURSE AVELINO TRIED TO SCAN THE I UNIT OF PRBC BAG BUT UNABLE, RETURNED BACK TO BLOOD BANK. PER CLARE KHAN OF BLOOD BANK, SHE WILL FIX THE ISSUE AND CALL US BACK.
[2019-06-13] MEDS: LEVOTHYROXINE SODIUM 100 MCG TABLET PO SCH (23:00)
[2019-06-13] MEDS: CARVEDILOL 3.125 MG TABLET PO SCH (23:00)
--- NOTE | 2019-06-13 23:00 | NUR ---
SUPERVISOR MACHINE WORKERS NOTE AVELINO WENT TO BLOOD BANK FOR THE 1 UNIT OF PRBC BUT SAME PROBLEM. UNABLE TO SCAN BLOOD PRODUCT. SO SHE WENT BACK TO RETURN IT. BLOOD BANK CLARE KHAN TOLD US SHE WILL AGAIN FIX THE PROBLEM AND CALL US.
[2019-06-13] MEDS: ALBUMIN 25% 25 GM in PREMIX 1 EA IV SCH (23:06)
[2019-06-14] VITALS (16 sets, daily range): BP systolic 101–147; BP diastolic 30–97
--- NOTE | 2019-06-14 00:50 | NUR ---
RIVETING MACHINE OPERATOR TAPE CONTROL NOTE CLARE OF BLOOD BANK CALLED US THAT SHE WAS UNABLE TO FIX THE PROBLEM. SO JUST OVERRIDE THE BLOOD PRODUCT AND PUT HER NAME CLARE KHAN OK'D IT. NURSING COMMUNITY RELATIONS OFFICER ALSO INFUSED. AVELINO STARTED TO INFUSE THE 1 UNIT OF PRBC WITHOUT ANY A/R, VSS. CONTINUE TO MONITOR HER.
[2019-06-14] MEDS ORDERED: ALBUMIN 25% 50 ML IV ONE ×2 (06:02→06:06)
[2019-06-14] MEDS: ALBUMIN 25% 25 GM in PREMIX 1 EA IV SCH ×2 (06:12→15:09)
[2019-06-14 06:17] LABS: BASOPHILS % (AUTO) 0.3 % (0.0-2.0); EOSINOPHILS % (AUTO) 2.6 % (0.0-6.0); LYMPHOCYTES # (AUTO) 0.6 /CMM (0.8-4.8); LYMPHOCYTES % (AUTO) 15.6 % (20.0-44.0); MEAN CORPUSCULAR HGB CONC 32 g/dl (31.0-36.0); MEAN CORPUSCULAR VOLUME 88 fL (82-100); MONOCYTES # (AUTO) 0.2 /CMM (0.1-1.30); MONOCYTES % (AUTO) 6.2 % (2.0-12.0); NEUTROPHILS # (AUTO) 2.9 /CMM (1.8-8.9); NEUTROPHILS % (AUTO) 75.3 % (43.0-81.0); PLATELET COUNT (AUTO) 92 /CMM (150-450); WHITE BLOOD COUNT (AUTO) 3.8 K/uL (4.3-11.0)
[2019-06-14 06:43] LABS: CHOLESTEROL 92 mg/dL (<200); HDL CHOLESTEROL 28 mg/dL (40-60); LDL 55 mg/dL (0-99); THYROID STIMULATING HORMONE 0.681 uIU/mL (0.358-3.74); TRIGLYCERIDES 94 mg/dL (30-150)
[2019-06-14 07:28] LABS: HEMATOCRIT 21 % (33-45); HEMOGLOBIN 6.8 g/dL (11.5-14.8)
[2019-06-14 07:49] LABS: CARBON DIOXIDE 20 mmol/L (21-32); CHLORIDE 110 mmol/L (98-107); CREATININE 1.8 mg/dL (0.6-1.3); GLUCOSE 152 mg/dL (74-106); PHOSPHORUS 4.1 mg/dL (2.5-4.9); POTASSIUM 5.1 mmol/L (3.5-5.1); SODIUM SERUM 143 mmol/L (136-145)
[2019-06-14 07:52] LABS: EOSINOPHILS % (MANUAL) 5 % (0-4); LYMPHOCYTES % (MANUAL) 15 % (16-48); MONOCYTES % (MANUAL) 10 % (0-11.0); NEUTROPHILS % (MANUAL) 70 (42-76)
--- NOTE | 2019-06-14 07:56 | NUR ---
PACKAGE HANDLER CLOSING NOTE PATIENT IN BED ASLEEP WITH NO SIGN OF ANY DISTRESS OR DISCOMFORT. PATIENT TOLERATED BLOOD TRANSFUSION WELL WITH NO SYMPTOMS OF COMPLICATIONS. PATIENT IN BED ON ROOM AIR WITH NO SIGN OF SOB. IV ACCESS #18G S/L. ALL SAFETY PRECAUTIONS APPLIED, BED LOCKED IN LOW POSITION, CALL LIGHT WITHIN REACH, AND BED ALARM ON. ENDORSED TO MORNING SHIFT NURSE FOR HOMER.
[2019-06-14 08:00] LABS: UREA NITROGEN, BLOOD 110 mg/dL (7-18)
--- NOTE | 2019-06-14 08:00 | NUR ---
MS RN NOTE PATIENT IN BED , ALL NEEDS ATTENDED ALERT ORIENTED SPEAKS ARABIC, NO SOB NOTED AT THIS TIME BED IN LOWEST AND LOCKED POSITION , , RT AC HL INTACT FLUSHED WELL NOT IN DISTRESS, WILL MONITOR
[2019-06-14 08:01] LABS: MAGNESIUM 2.3 mg/dL (1.8-2.4)
[2019-06-14] MEDS: PANTOPRAZOLE 40 MG VIAL IV SCH (09:03)
[2019-06-14] MEDS: LEVOTHYROXINE SODIUM 100 MCG TABLET PO SCH (09:03)
[2019-06-14] MEDS: CARVEDILOL 3.125 MG TABLET PO SCH ×2 (09:03→21:29)
[2019-06-14] MEDS: MISOPROSTOL 100 MCG TABLET PO SCH ×4 (09:07→21:29)
--- NOTE | 2019-06-14 09:30 | NUR ---
MS RN NOTE PER DR GAMBINO OK TO TRANSFUSE I UNIT PRBC PER DR BARNARD ORDER US PARACENTESIS, CONSENT SIGNED
--- NOTE | 2019-06-14 11:30 | NUR ---
MS RN NOTE I UNIT PRBC START TO TRANSFUSE ORDERED, NO ADVERSE REACTION NOTED
--- NOTE | 2019-06-14 12:42 | NUR ---
MS RN NOTE NO PARACENTESES AT THIS TIME, RADIOLOGIST SPOKE WITH DR BARNARD
--- NOTE | 2019-06-14 13:58 | NUR ---
ms rn note called to dr christina banegas left a message for gi consult
--- NOTE | 2019-06-14 15:06 | NUR ---
telephone installer note blood transfusion completed no adverse reaction noted
[2019-06-14] MEDS: SOD FERRIC GLUC 125 MG in IV NS 0.9% 100 ML IV SCH (15:54)
[2019-06-14] MEDS ORDERED: ACETAMINOPHEN 325 MG TABLET PO PRN (16:00)
[2019-06-14] MEDS ORDERED: ZOLPIDEM TARTRATE 5 MG TABLET PO PRN (16:00)
--- NOTE | 2019-06-14 17:29 | NUR ---
SEED CONE PICKER NOTE CALLED TO DR GONZALEZGI LEFT A KAILEE ABOUT GI CONSULT ,SPOKE WITH BAYLEE
--- NOTE | 2019-06-14 18:38 | NUR ---
SUPERVISOR BILLPOSTING NOTES STOOL FOR OB COLLECTED ORDERED, ABLE TO MAKE TARRY BLOODY STOOL , KEEP CLEAN DRY, TURN REPOSITION
[2019-06-14] MEDS: IPRATROPIUM NEB FS 0.5 MG/2.5 ML AMPUL.NEB NEB SCH ×2 (19:30→20:11)
--- NOTE | 2019-06-14 20:00 | NUR ---
MS RN NOTE PT IN BED AWAKE. A/O X 4, NO SOB, NO DISTRESS OR DISCOMFORT NOTED, DENIES PAIN. SL INACT AND PATENT. NO INFILTRATION NOTED. KEPT HER DRY AND CLEAN. ALL NEEDS ATTENDED. SIDE RIALS UP X 2 AND CALL LIGHT WITHIN REACH. VSS. CONTINUE TO MONITOR HER.
[2019-06-14] MEDS: PROPRANOLOL HCL 10 MG TABLET PO SCH (21:31)
[2019-06-14 21:38] LABS: OCCULT BLOOD STOOL POSITIVE (NEGATIVE)
[2019-06-15] VITALS (13 sets, daily range): BP systolic 98–135; BP diastolic 45–62
--- NOTE | 2019-06-15 | NUR ---
MS RN NOTE PT IN BED ASLEEP, AROUSABLE. NO DISTRESS OR DISCOMFORT NOTED. REPOSITION HER Q2H, KEPT HER DRY AND CLEAN.
[2019-06-15] MEDS: IPRATROPIUM NEB FS 0.5 MG/2.5 ML AMPUL.NEB NEB SCH ×4 (01:30→19:30)
--- NOTE | 2019-06-15 02:34 | NUR ---
RT PT REFUSED HHN, SHE WANTS TO SLEEP. NO SOB OR RESP DISTRESS NOTED.
[2019-06-15] MEDS: PROPRANOLOL HCL 10 MG TABLET PO SCH ×3 (05:13→21:00)
--- NOTE | 2019-06-15 07:01 | NUR ---
POST TRONIC MACHINE OPERATOR NOTE PT IN BED ASLEEP, NO DISTRESS NOTED OR DISCOMFORT NOTED. NO CHANGE IN CONDITION. ALL NEEDS ATTENDED. SIDE RAILS UP X 2 AND CALL LIGHT WITHIN REACH. ENDORSE TO DAY SHIFT NURSE FOR CONTINUE TO CARE.
[2019-06-15 07:10] LABS: BASOPHILS % (AUTO) 0.2 % (0.0-2.0); EOSINOPHILS % (AUTO) 3.7 % (0.0-6.0); HEMATOCRIT 22 % (33-45); HEMOGLOBIN 7.1 g/dL (11.5-14.8); LYMPHOCYTES # (AUTO) 0.6 /CMM (0.8-4.8); LYMPHOCYTES % (AUTO) 14.1 % (20.0-44.0); MEAN CORPUSCULAR HGB CONC 33 g/dl (31.0-36.0); MEAN CORPUSCULAR VOLUME 88 fL (82-100); MONOCYTES # (AUTO) 0.3 /CMM (0.1-1.30); NEUTROPHILS # (AUTO) 3.1 /CMM (1.8-8.9); PLATELET COUNT (AUTO) 85 /CMM (150-450); RED BLOOD CELL COUNT(AUTO) 2.48 MIL/uL (4.0-5.2); WHITE BLOOD COUNT (AUTO) 4.1 K/uL (4.3-11.0)
--- NOTE | 2019-06-15 07:10 | NUR ---
SUPERVISOR ORDNANCE TRUCK INSTALLATION OPENING NOTE: RECEIVED PATIENT IN BED. AWAKE, ALERT AND RESPONSIVE. NEURO STAT: RESPI: ROOM AIR / CONT O2 VIA NC , TOLERATING WELL. NO SOB NOTED AND NOT IN DISTRESS //MECHANICAL VENTILATION AND TOLERATING SETTINGS WELL. /GI: MEIJA / GT? DIALYSIS: ? WITH IV SITE AT , SITE CLEAN DRY AND PATENT WITH INFUSION OF , INFUSING WELL NO PAIN REPORTED AT THIS TIME, ON CARDIAC MONITORING WITH ____ NOTED AT ____ BPM CALL LIGHT IN REACH, SIDE RAILS UP, BED LOCKED, LOW AND AT SEMI-HUNTER'S POSITION. WILL CONTINUE TO MONITOR. Addendum: 06/15/19 at 1532 by BRYANNA HUYNH RN INCOMPLETE CHARTING
--- NOTE | 2019-06-15 07:10 | NUR ---
DISTRICT CLAIMS MANAGER OPENING NOTE: RECEIVED PATIENT IN BED. AWAKE, ALERT AND RESPONSIVE. ON ROOM AIR AND TOLERATING WELL. NO SOB NOTED AND NOT IN DISTRESS. WITH IV SITE AT RIGHT AC G20 SALINE LOCK, SITE CLEAN DRY AND PATENT. NO PAIN REPORTED AT THIS TIME. ON CARDIAC MONITORING WITH A. PACING NOTED AT 60 BPM. CALL LIGHT IN REACH, SIDE RAILS UP, BED LOCKED, LOW AND AT SEMI-HUNTER'S POSITION. WILL CONTINUE TO MONITOR.
[2019-06-15 07:25] LABS: ALANINE AMINOTRANSFERASE 13 U/L (12-78); ALBUMIN 3.5 g/dL (3.4-5.0); ALKALINE PHOSPHATASE 87 U/L (46-116); ASPARTATE AMINOTRANSFERASE 10 U/L (15-37); CARBON DIOXIDE 21 mmol/L (21-32); CHLORIDE 111 mmol/L (98-107); CREATININE 1.6 mg/dL (0.6-1.3); GLUCOSE 161 mg/dL (74-106); POTASSIUM 4.6 mmol/L (3.5-5.1); SODIUM SERUM 143 mmol/L (136-145); TOTAL PROTEIN, SERUM 7.1 g/dL (6.4-8.2)
[2019-06-15 07:26] LABS: UREA NITROGEN, BLOOD 95 mg/dL (7-18)
[2019-06-15] MEDS: MISOPROSTOL 100 MCG TABLET PO SCH ×4 (07:30→21:40)
[2019-06-15] MEDS: LEVOTHYROXINE SODIUM 100 MCG TABLET PO SCH (07:30)
[2019-06-15 08:53] LABS: EOSINOPHILS % (MANUAL) 5 % (0-4); LYMPHOCYTES % (MANUAL) 19 % (16-48); MONOCYTES % (MANUAL) 1 % (0-11.0); NEUTROPHILS % (MANUAL) 75 (42-76)
[2019-06-15] MEDS ORDERED: PANTOPRAZOLE 40 MG TABLET.DR PO SCH (09:00)
[2019-06-15] MEDS: CARVEDILOL 3.125 MG TABLET PO SCH ×2 (09:00→22:05)
[2019-06-15] MEDS ORDERED: TIOTROPIUM BROMIDE 6 CAP/BOX CAP.W.DEV IH SCH (09:00)
--- NOTE | 2019-06-15 09:28 | NUR ---
RN NOTE: PATIENT WITH ORDER FOR [address] HERRERA. NOTED AND CARRIED OUT.
[2019-06-15] MEDS: SPIRONOLACTONE 25 MG TABLET PO SCH (09:31)
[2019-06-15] MEDS: PANTOPRAZOLE 40 MG VIAL IV SCH (09:31)
[2019-06-15] MEDS: ALBUMIN 25% 25 GM in PREMIX 1 EA IV SCH ×2 (10:32→19:59)
[2019-06-15] MEDS: SOD FERRIC GLUC 125 MG in IV NS 0.9% 100 ML IV SCH (14:00)
--- NOTE | 2019-06-15 14:00 | NUR ---
MS RN NOTE: MISOPROSTOL 100MCG NOT ADMINISTERED DUE TO DOSE NOT AVAILABLE FROM PHARMACY.
--- NOTE | 2019-06-15 15:06 | NUR ---
MS BURK NOTE: STARTED TRANSFUSION OF PRBC TO PATIENT. Addendum: 06/15/19 at 1506 by BRYANNA HUYNH RN @1501
--- NOTE | 2019-06-15 15:16 | NUR ---
MS RN NOTE: PATIENT TOLERATED TRANSFUSION WITHOUT ANY ADVERSE REACTIONS FOR THE FIRST 15 MINUTES. WILL CONTINUE TO MONITOR.
--- NOTE | 2019-06-15 17:43 | NUR ---
MS RN NOTE: TRANSFUSION COMPLETED. PATIENT IN STABLE CONDITION AND SHOWED NO S/SX OF ADVERSE REACTIONS THROUGHOUT INFUSION.
--- NOTE | 2019-06-15 19:05 | NUR ---
RN OPENING NOTES: RECEIVED BEDSIDE REPORT FROM AM SHIFT NURSE. PATIENT IN BED, ASLEEP, BUT EASILY AWAKENED. NO RESPIRATORY DISTRESS. NO PAIN. (R) AC #18 INTACT, PATENT, AND FLUSHING WELL. SAFETY PRECAUTIONS IMPLEMENTED. BED LOCKED AND IN LOWEST POSITION. PER ENDORSEMENT, ALBUMIN DUE AT 1730 TO BE ADMINISTERED. AM SHIFT NURSE SPOKE WITH PHARMACY. PER PHARMACY, OK TO ADMINISTER LATE DUE TO FERRITIN STILL RUNNING. WILL ADMINISTER WHEN DONE. ALL NEEDS ATTENDED. S/P BLOOD TRANSFUSION. NO ACTIVE BLEEDING NOTED. CALL LIGHT WITHIN REACH. WILL CONT. TO MONITOR.
--- NOTE | 2019-06-15 19:15 | NUR ---
E LEARNING COORDINATOR CLOSING NOTE: PATIENT IN BED. AWAKE, ALERT AND RESPONSIVE. ON ROOM AIR AND TOLERATING WELL. NO SOB NOTED AND NOT IN DISTRESS. WITH IV SITE AT RIGHT AC G20. SITE CLEAN DRY AND PATENT. NO PAIN REPORTED AT THIS TIME. ON CARDIAC MONITORING WITH A. PACING NOTED AT 60 BPM. CALL LIGHT IN REACH, SIDE RAILS UP, BED LOCKED, LOW AND AT SEMI-HUNTER'S POSITION. ENDORSED TO ONCOMING ABOUT TRANSFUSION OF 1 UNIT OF PRBC, NO ADVERSE REACTIONS NOTED DURING PROCEDURE. CALLED PHARMACY TO INFORM OF LATE ADMINISTRATION OF 2 BAG OF ALBUMIN ORDERED DUE TO ONGOING TRANSFUSION DURING TIME ORDERED. OK TO GIVE LATE AND CONTINUE WITH PREVIOUSLY SCHEDULED TIME OF ADMINISTRATION. ENDORSED TO ONCOMING SHIFT FOR HOMER.
--- NOTE | 2019-06-15 19:45 | NUR ---
RN NOTE: PER RT, PATIENT REFUSED BREATHING TX. SPOKE WITH PATIENT, RISKS AND BENEFITS EXPLAINED, STILL REFUSED. NO RESPIRATORY DISTRESS NOTED. WILL CONT. TO MONITOR.
--- NOTE | 2019-06-15 22:03 | NUR ---
RN NOTE: NAIMA GALAN ACROBATIC RIGGER MADE AWARE OF BP 131/45, HR 59. NO PARAMETERS FOR COREG. PER ACROBATIC RIGGER, OK TO GIVE COREG DOSE TONIGHT.
[2019-06-16] MEDS: ALBUMIN 25% 25 GM in PREMIX 1 EA IV SCH (00:30)
[2019-06-16] MEDS: IPRATROPIUM NEB FS 0.5 MG/2.5 ML AMPUL.NEB NEB SCH ×3 (00:31→13:30)
[2019-06-16 05:00] VITALS: BP 141/57
[2019-06-16] MEDS: PROPRANOLOL HCL 10 MG TABLET PO SCH ×2 (05:24→13:05)
[2019-06-16 07:11] LABS: BASOPHILS % (AUTO) 0.4 % (0.0-2.0); EOSINOPHILS % (AUTO) 2.8 % (0.0-6.0); HEMATOCRIT 24 % (33-45); HEMOGLOBIN 7.8 g/dL (11.5-14.8); LYMPHOCYTES # (AUTO) 0.6 /CMM (0.8-4.8); LYMPHOCYTES % (AUTO) 14.4 % (20.0-44.0); MEAN CORPUSCULAR HGB CONC 32 g/dl (31.0-36.0); MEAN CORPUSCULAR VOLUME 87 fL (82-100); MONOCYTES # (AUTO) 0.3 /CMM (0.1-1.30); MONOCYTES % (AUTO) 7.2 % (2.0-12.0); NEUTROPHILS # (AUTO) 3.3 /CMM (1.8-8.9); NEUTROPHILS % (AUTO) 75.2 % (43.0-81.0); PLATELET COUNT (AUTO) 76 /CMM (150-450); RED BLOOD CELL COUNT(AUTO) 2.79 MIL/uL (4.0-5.2); WHITE BLOOD COUNT (AUTO) 4.4 K/uL (4.3-11.0)
--- NOTE | 2019-06-16 07:15 | NUR ---
MS RN NOTES PATIENT IN BED ALERT ORIENTED X 3. NO ACUTE DISTRESS NOTED. BREATHING UNLABORED. NO SOB NOTED. SAFETY MEASURES IN PLACE. CALL LIGHT WITHIN REACH . WILL CONTINUE TO MONITOR ACCORDINGLY.
--- NOTE | 2019-06-16 07:25 | NUR ---
RN CLOSING NOTES: PATIENT IN BED, ASLEEP, BUT EASILY AROUSABLE. NO SOB. NO PAIN. SAFETY PRECAUTIONS IMPLEMENTED. BED LOCKED AND IN LOWEST POSITION. NO ACTIVE BLEEDING NOTED. CALL LIGHT PLACED WITHIN REACH. ENDORSED TO AM SHIFT NURSE FOR CONTINUITY OF CARE.
[2019-06-16 07:29] LABS: ALANINE AMINOTRANSFERASE 12 U/L (12-78); ALBUMIN 3.9 g/dL (3.4-5.0); ALKALINE PHOSPHATASE 88 U/L (46-116); ASPARTATE AMINOTRANSFERASE 8 U/L (15-37); BILIRUBIN,TOTAL 1.2 mg/dL (0.2-1.0); CALCIUM, SERUM 9.1 mg/dL (8.5-10.1); CARBON DIOXIDE 21 mmol/L (21-32); CHLORIDE 109 mmol/L (98-107); CREATININE 1.7 mg/dL (0.6-1.3); GLUCOSE 163 mg/dL (74-106); POTASSIUM 4.7 mmol/L (3.5-5.1); SODIUM SERUM 143 mmol/L (136-145); TOTAL PROTEIN, SERUM 7.1 g/dL (6.4-8.2)
[2019-06-16 07:30] LABS: UREA NITROGEN, BLOOD 93 mg/dL (7-18)
[2019-06-16] MEDS: MISOPROSTOL 100 MCG TABLET PO SCH ×2 (07:51→12:49)
[2019-06-16] MEDS: LEVOTHYROXINE SODIUM 100 MCG TABLET PO SCH (07:52)
[2019-06-16 08:00] VITALS: BP 130/51
[2019-06-16] MEDS: SPIRONOLACTONE 25 MG TABLET PO SCH (08:37)
[2019-06-16] MEDS: PANTOPRAZOLE 40 MG VIAL IV SCH (08:37)
[2019-06-16] MEDS: CARVEDILOL 3.125 MG TABLET PO SCH (08:38)
[2019-06-16 08:40] LABS: EOSINOPHILS % (MANUAL) 1 % (0-4); LYMPHOCYTES % (MANUAL) 12 % (16-48); MONOCYTES % (MANUAL) 7 % (0-11.0); NEUTROPHILS % (MANUAL) 80 (42-76)
--- NOTE | 2019-06-16 09:46 | NUR ---
MS RN NOTES PATIENT SEEN AND EVALUATED BY DR GAMBINO WITH NEW ORDERS MADE, NOTED AND CARRIED OUT.
[2019-06-16] MEDS ORDERED: IPRA0.2S9 NEB (09:48)
[2019-06-16] MEDS ORDERED: LEVO100T PO (09:48)
[2019-06-16] MEDS ORDERED: MISO100T PO (09:48)
[2019-06-16] MEDS ORDERED: ACET325T53 PO (09:48)
[2019-06-16] MEDS ORDERED: CARV3.122 PO (09:48)
[2019-06-16] MEDS ORDERED: ALLA266C2 TP (09:48)
[2019-06-16] MEDS ORDERED: PANT40VI IV (09:48)
[2019-06-16] MEDS ORDERED: PROP10TA68 PO (09:48)
[2019-06-16] MEDS ORDERED: MAG30ORA PO (09:48)
[2019-06-16 13:00] VITALS: BP 118/50
[2019-06-16 13:05] VITALS: BP 119/47
--- NOTE | 2019-06-16 14:40 | NUR ---
MS RN NOTES PATIENT DISCHARGE HOME WITH SON JANNA WITH FAMILY PREFERRED [facility] WITH STABLE VITAL SIGNS, SON TO CONTACT HOME HEALTH. DISCHARGE INSTRUCTIONS GIVEN TO THE PATIENT AND SON JANNA INCLUDING LABORATORY TEST AND PRIMARY DOCTOR FOLLOW UP, VERBALIZED UNDERSTANDING. ALL BELONGINGS ACCOUNTED FOR. PATIENT ALERT ORIENTED X 3. NO ACUTE DISTRESS NOTED. NO SOB NOTED. NO BLEEDING NOTED. IV ACCESS REMOVED, NO REDNESS, NO SWELLING NOTED. ASSISTED TO THE LOBBY. PICKED UP VIA PRIVATE CAR WITH SON JANNA IN STABLE CONDITION.
== END 2019-06-16 14:40 | disposition home health service (06) | DRG 377 ==
LOC: ER 13:23 → TELE1 16:47 → MEDSG1 06-15 13:06
PROVIDERS: ADMIT Family Medicine; ATTEND Family Medicine
PROC: 30233N1 Transfusion of Nonautologous Red Blood Cells into Peripheral Vein, Percutaneous Approach (ICD-10-PCS; principal; 2019-06-14)
DX: K92.2 Gastrointestinal hemorrhage, unspecified (principal); N17.0 Acute kidney failure with tubular necrosis; D62 Acute posthemorrhagic anemia; I48.92 Unspecified atrial flutter; D61.818 Other pancytopenia; I13.0 Hypertensive heart and chronic kidney disease with heart failure and stage 1 through stage 4 chronic kidney disease, or unspecified chronic kidney disease; R18.8 Other ascites; Z95.1 Presence of aortocoronary bypass graft; Z95.0 Presence of cardiac pacemaker; Z86.73 Personal history of transient ischemic attack (TIA), and cerebral infarction without residual deficits; I25.10 Atherosclerotic heart disease of native coronary artery without angina pectoris; I25.2 Old myocardial infarction; E11.22 Type 2 diabetes mellitus with diabetic chronic kidney disease; I07.1 Rheumatic tricuspid insufficiency; I27.20 Pulmonary hypertension, unspecified; E11.42 Type 2 diabetes mellitus with diabetic polyneuropathy; I48.91 Unspecified atrial fibrillation; K21.9 Gastro-esophageal reflux disease without esophagitis; F03.90 Unspecified dementia, unspecified severity, without behavioral disturbance, psychotic disturbance, mood disturbance, and anxiety; E03.9 Hypothyroidism, unspecified; N18.9 Chronic kidney disease, unspecified; I50.9 Heart failure, unspecified; E78.5 Hyperlipidemia, unspecified; K59.00 Constipation, unspecified; M19.90 Unspecified osteoarthritis, unspecified site; G89.29 Other chronic pain; M54.5 Low back pain; M79.7 Fibromyalgia; M81.0 Age-related osteoporosis without current pathological fracture; F43.10 Post-traumatic stress disorder, unspecified; F41.9 Anxiety disorder, unspecified; F32.9 Major depressive disorder, single episode, unspecified; G47.9 Sleep disorder, unspecified; K74.60 Unspecified cirrhosis of liver; E11.319 Type 2 diabetes mellitus with unspecified diabetic retinopathy without macular edema; D50.0 Iron deficiency anemia secondary to blood loss (chronic); I44.0 Atrioventricular block, first degree; Z87.11 Personal history of peptic ulcer disease; K42.9 Umbilical hernia without obstruction or gangrene; L98.8 Other specified disorders of the skin and subcutaneous tissue; H91.90 Unspecified hearing loss, unspecified ear; L89.159 Pressure ulcer of sacral region, unspecified stage
CPT/HCPCS: 36415; 71045-TC; 76942-TC; 80048-TC; 80053-TC; 80061-TC; 80076-TC; 82272-TC; 83540-TC; 83605-TC; 83735-TC; 83880; 84100-TC; 84443-TC; 84484-TC; 85025-TC; 85730-TC; 86850-TC; 86921-TC; 87040-TC; 87081-TC; 97116-TC; 97530-TC; A4216; C9113; G0378; J2916; J7030; J7050; P9016-BL; P9047

== ENCOUNTER 2019-08-10 00:41 | Inpatient (IN) | payer MEDICARE, MEDICAID ==
[~2019-08-10] VITALS: Ht 154.9 cm; Wt 82.6 kg
[~2019-08-10 00:41] MED LIST changes: +ACET325T53 PO; +ALLA266C2 TP; -ASPI81TA44 PO; -ATOR20TA PO; -BUDE10.2 IH; -BUME2TAB7 PO; +CARV3.122 PO; -ENAL5TAB77 PO; -IBUP-1955 PO; +IPRA0.2S9 NEB; -ISOS20TA8 PO; +LEVO100T PO; -LINA5TAB PO; -LINA72CA PO; +MAG30ORA PO; -MECL-102 PO; +MISO100T PO; +PANT40VI IV; +PROP10TA68 PO; -RANI150T8 PO; -REPA2TAB PO
--- NOTE | 2019-08-10 00:50 | NUR ---
PT BIBRA, AAOX4. CHINESE SPEAKING ONLY. C/O WILLAM AND VOMITING X 3-4 HRS LAMP DEVELOPER. PT C/O SOB AND ABD PAIN . SAT 98% ON ROOM PAIN. VSS. NO ACUTE DISTRESS NOTED. UPON ASSESSMENT ABD SWOLLEN, PER RA "SHE GETS IT DRAINED X3 MONTHS." WILL CONTINUE TO MONITOR. MD AT BEDSIDE.
[2019-08-10 01:08] LABS: BASOPHILS # (AUTO) 0.1 /CMM (0.0-0.2); BASOPHILS % (AUTO) 0.9 % (0.0-2.0); HEMATOCRIT 32 % (33-45); HEMOGLOBIN 9.9 g/dL (11.5-14.8); LYMPHOCYTES # (AUTO) 0.5 /CMM (0.8-4.8); LYMPHOCYTES % (AUTO) 9.8 % (20.0-44.0); MEAN CORPUSCULAR HGB CONC 31 g/dl (31.0-36.0); MEAN CORPUSCULAR VOLUME 94 fL (82-100); MONOCYTES # (AUTO) 0.4 /CMM (0.1-1.30); NEUTROPHILS # (AUTO) 4.5 /CMM (1.8-8.9); NEUTROPHILS % (AUTO) 80.3 % (43.0-81.0); PLATELET COUNT (AUTO) 128 /CMM (150-450); RED BLOOD CELL COUNT(AUTO) 3.43 MIL/uL (4.0-5.2); WHITE BLOOD COUNT (AUTO) 5.6 K/uL (4.3-11.0)
[2019-08-10 01:24] LABS: ALANINE AMINOTRANSFERASE 12 U/L (12-78); ALBUMIN 3.4 g/dL (3.4-5.0); ALKALINE PHOSPHATASE 141 U/L (46-116); ASPARTATE AMINOTRANSFERASE 15 U/L (15-37); BILIRUBIN,DIRECT 0.2 mg/dL (0.0-0.2); BILIRUBIN,TOTAL 0.5 mg/dL (0.2-1.0); CALCIUM, SERUM 9.1 mg/dL (8.5-10.1); CARBON DIOXIDE 20 mmol/L (21-32); CHLORIDE 110 mmol/L (98-107); CREATININE 1.7 mg/dL (0.6-1.3); GLUCOSE 186 mg/dL (74-106); LIPASE 234 U/L (73-393); SODIUM SERUM 137 mmol/L (136-145); TOTAL PROTEIN, SERUM 7.7 g/dL (6.4-8.2); UREA NITROGEN, BLOOD 41 mg/dL (7-18)
[2019-08-10 01:27] LABS: POTASSIUM 6.2 mmol/L (3.5-5.1)
[2019-08-10] MEDS ORDERED: CALCIUM CHLORIDE 1,000 MG/10 ML DISP.SYRIN IV ONE (01:30)
[2019-08-10] MEDS: ALBUTEROL FS 2.5 MG/0.5 ML VIAL.NEB NEB ONE ×3 (01:30→02:02)
[2019-08-10] MEDS ORDERED: SODIUM POLYSTYRENE SULFONATE 15 G/60 ML BOTTLE PO ONE (01:30)
[2019-08-10] MEDS ORDERED: CALCIUM CHLORIDE 1,000 MG/10 ML DISP.SYRIN ONE (01:46)
[2019-08-10] MEDS ORDERED: SODIUM POLYSTYRENE SULFONATE 15 G/60 ML BOTTLE ONE (01:46)
--- NOTE | 2019-08-10 01:47 | NUR ---
BED 316-1
[2019-08-10 01:50] LABS: APPEARANCE,URINE Clear (CLEAR); BILIRUBIN,URINE Negative (NEGATIVE); BLOOD, URINE Small Ery/uL (NEGATIVE); COLOR,URINE Yellow (YELLOW); KETONES,URINE Negative (NEGATIVE); LEUKOCYTE ESTERASE ,URINE Trace (NEGATIVE); NITRITE, URINE Negative (NEGATIVE); PROTEIN,URINE >=300 mg/dl (NEGATIVE); UGLUCOSE Negative (NEGATIVE); UROBILINOGEN,URINE 0.2 EU/dL (0.2)
[2019-08-10] MEDS ORDERED: ALBUTEROL FS 2.5 MG/3 ML VIAL.NEB ONE ×2 (01:59→02:22)
[2019-08-10 02:00] LABS: SERUM AMMONIA 36 umol/L (11-32)
--- NOTE | 2019-08-10 02:00 | NUR ---
BACK FROM CT
[2019-08-10 02:02] LABS: BACTERIA,URINE Few /HPF (None Seen); SQUAMOUS EPITHELIAL CELL,UR Few /HPF (None Seen); WBC,URINE 51-80 /HPF (0-3)
--- NOTE | 2019-08-10 02:03 | NUR ---
pt refusing albuterol at this time. medication wasted.
--- NOTE | 2019-08-10 02:15 | NUR ---
PT REFUSED MEDS. EXPLAINED TO PT AND FAMILY RISKS AND PT DECIDED TO REFUSE. AWARE.
--- NOTE | 2019-08-10 02:22 | NUR ---
Martin [phone] Rogelio
--- NOTE | 2019-08-10 02:27 | NUR ---
recieving breathing treatment.
--- NOTE | 2019-08-10 03:05 | NUR ---
Patient is resting comfortably in bed. Easily aroused. VSS.
[2019-08-10] MEDS ORDERED: LEVOFLOXACIN 500 MG /D5W 100ML 100 ML IV ONE (03:09)
[2019-08-10] MEDS: LEVOFLOXACIN 500 MG /D5W 100ML 500 MG in PREMIX 1 EA IV SCH (03:15)
--- NOTE | 2019-08-10 03:41 | NUR ---
REPORT GIVEN TO MYA BURK FOR HOMER
--- NOTE | 2019-08-10 04:18 | NUR ---
PT TRASNFERED PER ACLS PROTOCL
[2019-08-10 05:00] VITALS: BP 151/52
--- NOTE | 2019-08-10 05:05 | NUR ---
TROUBLE SHOOTER NOTES PATIENT IN BED, AWAKE, ALERT AND ORIENTED X 4. BREATHING EVEN AND UNLABORED ON ROOM AIR. SHOWS NO SIGNS OF ACUTE RESPIRATORY DISTRESS. IV ON LAC 20G, SHOWS NO SIGNS OF INFILTRATION, NO REDNESS. IV IS CLEAN DRY AND INTACT. TELE ON A FIB APACING 60's. ORIENTED TO STAFF, AND UNIT. BELONGING CHECKLIST COMPLETE AND SKIN ASSESSMENT COMPLETED. SAFETY PRECAUTIONS IN PLACE. BED IN LOWEST POSITION, LOCKED, AND CALL LIGHT KEPT WITHIN REACH. WILL CONTINUE TO MONITOR.
[2019-08-10] MEDS ORDERED: ONDANSETRON HCL/PF 4 MG/2 ML VIAL IV PRN (05:30)
[2019-08-10] MEDS ORDERED: ACETAMINOPHEN 325 MG TABLET PO PRN (05:30)
[2019-08-10 05:58] LABS: MAGNESIUM 2.1 mg/dL (1.8-2.4)
[2019-08-10 06:10] VITALS: BP 151/52
[2019-08-10] MEDS ORDERED: ALBUMIN 25% 100 ML IV ONE (06:20)
--- NOTE | 2019-08-10 06:24 | NUR ---
RT CALLED BACK TO PT BEDSIDE TO ADMINISTER BREATHING TX Addendum: 08/10/19 at 0643 by ZAY SANTIAGO RT AT [id number]
[2019-08-10] MEDS: ALBUMIN 25% 25 GM in PREMIX 1 EA IV SCH ×3 (06:29→21:21)
--- NOTE | 2019-08-10 07:02 | NUR ---
MACHINE CASTINGS PLASTERER NOTES PATIENT IN BED, ASLEEP, ALERT AND ORIENTED X 4. BREATHING EVEN AND UNLABORED ON ROOM AIR. SHOWS NO SIGNS OF ACUTE RESPIRATORY DISTRESS. IV ON LAC 20G, SHOWS NO SIGNS OF INFILTRATION, NO REDNESS. IV IS CLEAN DRY AND INTACT. RUNNING ALBUMIN 100ML/HR. TELE ON A FIB APACING 60's. ALL DUE MEDICATIONS GIVEN. SAFETY PRECAUTIONS IN PLACE. BED IN LOWEST POSITION, LOCKED, AND CALL LIGHT KEPT WITHIN REACH. WILL ENDORSE TO ONCOMING NURSE.
[2019-08-10 08:00] VITALS: BP 149/57
[2019-08-10] MEDS ORDERED: ACETAMINOPHEN ES 500 MG TABLET PO PRN (08:15)
--- NOTE | 2019-08-10 08:20 | NUR ---
ms rn received on bed, awake,alert,oriented x4,not in any form of distress, respirations even and unlabored.
[2019-08-10] MEDS: AMLODIPINE BESYLATE 2.5 MG TABLET PO SCH ×2 (09:00→20:52)
[2019-08-10] MEDS ORDERED: PANTOPRAZOLE 40 MG TABLET.DR PO SCH (09:30)
[2019-08-10] MEDS ORDERED: MAG HYDROX/AL HYDROX/SIMETH 30 ML UDC PO PRN (09:30)
[2019-08-10] MEDS ORDERED: Z GUARD REMEDY 2 OZ OINT TP PRN (09:30)
[2019-08-10] MEDS ORDERED: SPIRONOLACTONE 25 MG TABLET PO SCH (09:30)
[2019-08-10] MEDS ORDERED: LEVOTHYROXINE SODIUM 100 MCG TABLET PO SCH (09:30)
[2019-08-10] MEDS ORDERED: PANTOPRAZOLE 40 MG VIAL IV SCH (09:30)
[2019-08-10] MEDS: CARVEDILOL 3.125 MG TABLET PO SCH ×2 (09:30→20:52)
[2019-08-10] MEDS: PANTOPRAZOLE 40 MG VIAL IV SCH (10:10)
[2019-08-10] MEDS: FERROUS SULFATE (325 MG) 325 MG/TAB TABLET PO SCH ×2 (10:10→17:56)
[2019-08-10] MEDS: FOLIC ACID 1 MG TABLET PO SCH (10:10)
[2019-08-10] MEDS ORDERED: LEVO125T8 PO (10:25)
[2019-08-10] MEDS ORDERED: SPIR25TA6 PO (10:25)
[2019-08-10] MEDS ORDERED: ATOR10TA PO (10:25)
[2019-08-10] MEDS ORDERED: MECL-159 PO (10:25)
[2019-08-10] MEDS ORDERED: BUME2TAB7 PO (10:25)
[2019-08-10] MEDS ORDERED: FOLI0.4T2 PO (10:25)
[2019-08-10] MEDS ORDERED: LINA5TAB PO (10:25)
[2019-08-10] MEDS ORDERED: ENAL2.5T PO (10:25)
[2019-08-10] MEDS ORDERED: RANI150T8 PO (10:25)
[2019-08-10] MEDS ORDERED: AMLO5TAB9 PO (10:25)
[2019-08-10] MEDS ORDERED: ISOS20TA8 PO (10:25)
[2019-08-10] MEDS ORDERED: REPA2TAB10 PO (10:25)
[2019-08-10] MEDS ORDERED: BUDE10.2 IH (10:25)
[2019-08-10] MEDS ORDERED: IBUP-1955 PO (10:25)
[2019-08-10] MEDS ORDERED: ASPI-1169 PO (10:25)
[2019-08-10] MEDS ORDERED: MISOPROSTOL 100 MCG TABLET PO SCH (12:00)
[2019-08-10] MEDS ORDERED: PROPRANOLOL HCL 10 MG TABLET PO SCH (13:00)
[2019-08-10 16:00] VITALS: BP 133/60
[2019-08-10] MEDS: ACETAMINOPHEN 325 MG TABLET PO SCH ×2 (17:56→21:00)
--- NOTE | 2019-08-10 19:32 | NUR ---
MS RN NOTES PATIENT IN BED, ASLEEP, ALERT AND ORIENTED X 4. BREATHING EVEN AND UNLABORED ON ROOM AIR. SHOWS NO SIGNS OF ACUTE RESPIRATORY DISTRESS. IV ON LAC 20G, SHOWS NO SIGNS OF INFILTRATION, NO REDNESS. IV IS CLEAN DRY AND INTACT. SAFETY PRECAUTIONS IN PLACE. BED IN LOWEST POSITION, LOCKED, AND CALL LIGHT KEPT WITHIN REACH. WILL CONTINUE TO MONITOR.
[2019-08-10 20:00] VITALS: BP 138/56
--- NOTE | 2019-08-10 21:00 | NUR ---
MS RN NOTES PATIENT NOT GIVEN 2100 DOSE OF TYLENOL. LAST DOSE OF TYLENOL GIVEN AT 1756. WILL CONTINUE TO MONITOR.
[2019-08-11] MEDS: LEVOFLOXACIN 500 MG /D5W 100ML 500 MG in PREMIX 1 EA IV SCH (03:44)
[2019-08-11] MEDS: ACETAMINOPHEN 325 MG TABLET PO SCH ×3 (05:00→22:20)
[2019-08-11] MEDS: ALBUMIN 25% 25 GM in PREMIX 1 EA IV SCH ×3 (05:40→22:26)
--- NOTE | 2019-08-11 06:44 | NUR ---
MS RN NOTES PATIENT IN BED, ASLEEP, ALERT AND ORIENTED X 4. BREATHING EVEN AND UNLABORED ON ROOM AIR. SHOWS NO SIGNS OF ACUTE RESPIRATORY DISTRESS. IV ON LAC 20G, SHOWS NO SIGNS OF INFILTRATION, NO REDNESS. IV IS CLEAN DRY AND INTACT. ALL DUE MEDICATIONS GIVEN. SAFETY PRECAUTIONS IN PLACE. BED IN LOWEST POSITION, LOCKED, AND CALL LIGHT KEPT WITHIN REACH. WILL ENDORSE TO ONCOMING NURSE.
[2019-08-11 07:14] LABS: BASOPHILS % (AUTO) 0.3 % (0.0-2.0); EOSINOPHILS % (AUTO) 2.7 % (0.0-6.0); HEMATOCRIT 28 % (33-45); HEMOGLOBIN 8.7 g/dL (11.5-14.8); LYMPHOCYTES # (AUTO) 0.4 /CMM (0.8-4.8); MEAN CORPUSCULAR HGB CONC 31 g/dl (31.0-36.0); MEAN CORPUSCULAR VOLUME 93 fL (82-100); MONOCYTES # (AUTO) 0.2 /CMM (0.1-1.30); MONOCYTES % (AUTO) 8.8 % (2.0-12.0); NEUTROPHILS # (AUTO) 1.7 /CMM (1.8-8.9); NEUTROPHILS % (AUTO) 73.2 % (43.0-81.0); PLATELET COUNT (AUTO) 94 /CMM (150-450); RED BLOOD CELL COUNT(AUTO) 3.02 MIL/uL (4.0-5.2); WHITE BLOOD COUNT (AUTO) 2.3 K/uL (4.3-11.0)
[2019-08-11 07:46] LABS: ALANINE AMINOTRANSFERASE 9 U/L (12-78); ALBUMIN 3.4 g/dL (3.4-5.0); ALKALINE PHOSPHATASE 90 U/L (46-116); ASPARTATE AMINOTRANSFERASE 8 U/L (15-37); BILIRUBIN,TOTAL 0.6 mg/dL (0.2-1.0); CALCIUM, SERUM 9.3 mg/dL (8.5-10.1); CARBON DIOXIDE 21 mmol/L (21-32); CHLORIDE 112 mmol/L (98-107); CREATININE 1.9 mg/dL (0.6-1.3); GLUCOSE 114 mg/dL (74-106); LIPASE 178 U/L (73-393); SODIUM SERUM 140 mmol/L (136-145); TOTAL PROTEIN, SERUM 6.8 g/dL (6.4-8.2); UREA NITROGEN, BLOOD 42 mg/dL (7-18)
[2019-08-11 07:50] LABS: POTASSIUM 6.2 mmol/L (3.5-5.1)
[2019-08-11 07:55] VITALS: BP 139/53
--- NOTE | 2019-08-11 08:00 | NUR ---
ms rn received on bed, awake,alert,oriented x4,not in any form of distress, respirations even and unlabored,no sob noted, will monitor patient.
--- NOTE | 2019-08-11 08:05 | NUR ---
ms melgar received a critical value for k - 6.2, called dr. monson w/ orders made and carried out.
[2019-08-11 08:10] LABS: EOSINOPHILS % (MANUAL) 3 % (0-4); LYMPHOCYTES % (MANUAL) 15 % (16-48); MONOCYTES % (MANUAL) 4 % (0-11.0); NEUTROPHILS % (MANUAL) 78 (42-76)
--- NOTE | 2019-08-11 09:20 | NUR ---
ms rn was seen by dr. ermias maher/ orders made and carried out, will monitor patient.
[2019-08-11] MEDS ORDERED: SODIUM POLYSTYRENE SULFONATE 15 G/60 ML BOTTLE RC ONE ×2 (09:30→13:30)
--- NOTE | 2019-08-11 09:30 | NUR ---
ms talia breakfast served,no appetite, requested to take meds later.
--- NOTE | 2019-08-11 10:30 | NUR ---
ms rn due meds given.tolerated well.
--- NOTE | 2019-08-11 11:00 | NUR ---
ms rn first dose of kayexalate given via enema, w/ one output.
[2019-08-11] MEDS: PANTOPRAZOLE 40 MG VIAL IV SCH (11:31)
[2019-08-11] MEDS: LEVOTHYROXINE SODIUM 125 MCG TABLET PO SCH (11:31)
[2019-08-11] MEDS: FERROUS SULFATE (325 MG) 325 MG/TAB TABLET PO SCH ×2 (11:31→17:07)
[2019-08-11] MEDS: FOLIC ACID 1 MG TABLET PO SCH (11:32)
[2019-08-11] MEDS: CARVEDILOL 3.125 MG TABLET PO SCH ×2 (11:33→22:23)
[2019-08-11] MEDS: AMLODIPINE BESYLATE 2.5 MG TABLET PO SCH ×2 (11:33→22:23)
[2019-08-11] MEDS ORDERED: SODIUM POLYSTYRENE SULFONATE 15 G/60 ML BOTTLE PO ONE (12:00)
--- NOTE | 2019-08-11 13:00 | NUR ---
ms melgar third dose of kayexalate done, will rechecked k after 3-4 hours..
[2019-08-11 16:00] VITALS: BP 137/57
[2019-08-11] MEDS: CLOTRIMAZOLE/BETAMETASONE DIPROPIONATE 15 GM TUBE TP SCH (17:00)
--- NOTE | 2019-08-11 18:00 | NUR ---
ms rn k level - 5.9 - will call dr. monson later, patient will not going home tonight.
[2019-08-11 20:00] VITALS: BP 132/50
[2019-08-11] MEDS: ZOLPIDEM TARTRATE 5 MG TABLET PO PRN ×2 (22:34→22:40)
[2019-08-12] MEDS: LEVOFLOXACIN 500 MG /D5W 100ML 500 MG in PREMIX 1 EA IV SCH (03:25)
[2019-08-12] MEDS: ACETAMINOPHEN 325 MG TABLET PO SCH ×3 (05:19→21:46)
[2019-08-12 07:11] LABS: BASOPHILS % (AUTO) 0.4 % (0.0-2.0); EOSINOPHILS % (AUTO) 2.9 % (0.0-6.0); HEMATOCRIT 26 % (33-45); LYMPHOCYTES # (AUTO) 0.3 /CMM (0.8-4.8); LYMPHOCYTES % (AUTO) 14.3 % (20.0-44.0); MEAN CORPUSCULAR HGB CONC 31 g/dl (31.0-36.0); MEAN CORPUSCULAR VOLUME 93 fL (82-100); MONOCYTES # (AUTO) 0.2 /CMM (0.1-1.30); MONOCYTES % (AUTO) 7.7 % (2.0-12.0); NEUTROPHILS # (AUTO) 1.8 /CMM (1.8-8.9); NEUTROPHILS % (AUTO) 74.7 % (43.0-81.0); PLATELET COUNT (AUTO) 90 /CMM (150-450); RED BLOOD CELL COUNT(AUTO) 2.81 MIL/uL (4.0-5.2); WHITE BLOOD COUNT (AUTO) 2.4 K/uL (4.3-11.0)
--- NOTE | 2019-08-12 07:14 | NUR ---
Patient on NAD last night. Alert and able to make needs known. Tolerated Albumin and antibiotics IVPB. Slept soundly last night, with no complaints of pain.
[2019-08-12] MEDS: PANTOPRAZOLE 40 MG VIAL IV SCH (07:30)
--- NOTE | 2019-08-12 07:30 | NUR ---
WOUND CARE CONSULT WOUND CARE RECEIVED CONSULT FOR SKIN TEARS. WOUND CARE WILL DEFER CONSULT AND ALL TREATMENT PLANS TO PLASTIC SURGICAL TEAM WHO ARE CURRENTLY FOLLOWING THIS PATIENT. PATIENT WITH PAMELA AT 16, ALL PRESSURE ULCER PREVENTION MEASURES ARE NOTED TO BE IN PLACE. WILL SEE PRN.
[2019-08-12 07:45] LABS: ALANINE AMINOTRANSFERASE 9 U/L (12-78); ALBUMIN 3.6 g/dL (3.4-5.0); ALKALINE PHOSPHATASE 83 U/L (46-116); ASPARTATE AMINOTRANSFERASE 5 U/L (15-37); BILIRUBIN,TOTAL 0.5 mg/dL (0.2-1.0); CALCIUM, SERUM 8.9 mg/dL (8.5-10.1); CARBON DIOXIDE 19 mmol/L (21-32); CHLORIDE 113 mmol/L (98-107); CREATININE 1.8 mg/dL (0.6-1.3); GLUCOSE 125 mg/dL (74-106); POTASSIUM 5.9 mmol/L (3.5-5.1); SODIUM SERUM 142 mmol/L (136-145); TOTAL PROTEIN, SERUM 6.6 g/dL (6.4-8.2); UREA NITROGEN, BLOOD 42 mg/dL (7-18)
[2019-08-12 08:00] VITALS: BP 130/51
--- NOTE | 2019-08-12 08:05 | NUR ---
RN NOTES Patient received on room air, no sob noted, patient denies pain at this time. Patient on L ac 20 gauge. Bed at the lowest setting, call light within reach, side rails up x2.
[2019-08-12] MEDS: AMLODIPINE BESYLATE 2.5 MG TABLET PO SCH ×2 (08:46→21:46)
[2019-08-12] MEDS: LEVOTHYROXINE SODIUM 125 MCG TABLET PO SCH (08:46)
[2019-08-12] MEDS: CARVEDILOL 3.125 MG TABLET PO SCH ×2 (08:47→21:46)
[2019-08-12] MEDS: CLOTRIMAZOLE/BETAMETASONE DIPROPIONATE 15 GM TUBE TP SCH ×2 (08:47→18:06)
[2019-08-12] MEDS: FOLIC ACID 1 MG TABLET PO SCH (08:47)
[2019-08-12] MEDS: FERROUS SULFATE (325 MG) 325 MG/TAB TABLET PO SCH ×2 (08:47→18:05)
[2019-08-12] MEDS ORDERED: SODIUM POLYSTYRENE SULF. PWD 15 GM UDC PO ONE (09:00)
[2019-08-12] MEDS ORDERED: SODIUM POLYSTYRENE SULFONATE 15 G/60 ML BOTTLE PO ONE ×2 (10:00→19:00)
[2019-08-12] MEDS: FUROSEMIDE 40 MG TABLET PO SCH (11:55)
[2019-08-12 12:45] LABS: BAND % (MANUAL) 2 % (0.0-5.0); EOSINOPHILS % (MANUAL) 3 % (0-4); LYMPHOCYTES % (MANUAL) 15 % (16-48); MONOCYTES % (MANUAL) 6 % (0-11.0); NEUTROPHILS % (MANUAL) 74 (42-76)
[2019-08-12 16:00] VITALS: BP 122/58
[2019-08-12 16:57] LABS: CALCIUM, SERUM 8.8 mg/dL (8.5-10.1); CARBON DIOXIDE 21 mmol/L (21-32); CHLORIDE 113 mmol/L (98-107); CREATININE 1.9 mg/dL (0.6-1.3); GLUCOSE 148 mg/dL (74-106); POTASSIUM 6.2 mmol/L (3.5-5.1); SODIUM SERUM 141 mmol/L (136-145); UREA NITROGEN, BLOOD 42 mg/dL (7-18)
[2019-08-12 17:13] LABS: BASOPHILS % (AUTO) 0.3 % (0.0-2.0); EOSINOPHILS % (AUTO) 2.4 % (0.0-6.0); HEMATOCRIT 28 % (33-45); HEMOGLOBIN 8.5 g/dL (11.5-14.8); LYMPHOCYTES # (AUTO) 0.3 /CMM (0.8-4.8); LYMPHOCYTES % (AUTO) 11.4 % (20.0-44.0); MEAN CORPUSCULAR HGB CONC 30 g/dl (31.0-36.0); MEAN CORPUSCULAR VOLUME 94 fL (82-100); MONOCYTES # (AUTO) 0.2 /CMM (0.1-1.30); MONOCYTES % (AUTO) 6.3 % (2.0-12.0); NEUTROPHILS # (AUTO) 2.3 /CMM (1.8-8.9); NEUTROPHILS % (AUTO) 79.6 % (43.0-81.0); PLATELET COUNT (AUTO) 90 /CMM (150-450); RED BLOOD CELL COUNT(AUTO) 2.97 MIL/uL (4.0-5.2); WHITE BLOOD COUNT (AUTO) 2.8 K/uL (4.3-11.0)
[2019-08-12 18:26] LABS: EOSINOPHILS % (MANUAL) 2 % (0-4); LYMPHOCYTES % (MANUAL) 5 % (16-48); MONOCYTES % (MANUAL) 1 % (0-11.0); NEUTROPHILS % (MANUAL) 92 (42-76)
--- NOTE | 2019-08-12 18:29 | NUR ---
RN CLOSING NOTES Patient remains on room air, no sob noted, patient remains a/o x4 and remains to speak slovak only. Remains with L AC 20 gauge. Kayexalate at 6.2, aware and wants another enema of kayexalate. Bed at the lowest setting, call light within reach, side rails up x2. Will give report to NOC RN for HOMER bedside.
--- NOTE | 2019-08-12 19:45 | NUR ---
MS RN OPENING NOTES PATIENT AWAKE IN BED. A/OX4. MAORI SPEAKING ONLY. ON ROOM AIR. NO S/S OF SOB OR PAIN AT THIS TIME. IV PRESENT ON LEFT AC, SIZE 20, INTACT & PATENT. BED LOCKED, ALARM ON, SIDE RAILS X2, CALL LIGHT WITHIN REACH. WILL CONTINUE TO MONITOR.
[2019-08-12 20:00] VITALS: BP 137/56
[2019-08-12] MEDS: ONDANSETRON HCL/PF 4 MG/2 ML VIAL IV PRN (21:58)
--- NOTE | 2019-08-13 04:20 | NUR ---
MS RN NOTES FAXED MED ORDER FOR KAYEXELATE 30G TO NURSE TRADE MARK EXAMINER IN ORDER TO RETRIEVE MEDICATION FROM NIGHT LOCKER. AWAITING MEDICATION.
[2019-08-13] MEDS: ACETAMINOPHEN 325 MG TABLET PO SCH ×2 (05:00→12:49)
[2019-08-13] MEDS ORDERED: SODIUM POLYSTYRENE SULFONATE 15 G/60 ML BOTTLE PO ONE (05:00)
[2019-08-13] MEDS ORDERED: SODIUM POLYSTYRENE SULFONATE 15 G/60 ML BOTTLE ONE ×2 (06:13→06:14)
[2019-08-13] MEDS: ONDANSETRON HCL/PF 4 MG/2 ML VIAL IV PRN (06:37)
--- NOTE | 2019-08-13 07:30 | NUR ---
MS RN CLOSING NOTES PATIENT AWAKE IN BED. A/OX4. ON ROOM AIR. NO S/S OF SOB OR PAIN AT THIS TIME. IV PRESENT ON LEFT AC, SIZE 20, INTACT & PATENT, HEP LOCKED. BED LOCKED, ALARM ON, SIDE RAILS X2, CALL LIGHT WITHIN REACH. WILL ENDORSE TO DAY SHIFT NURSE TO FOLLOW PLAN OF CARE.
[2019-08-13 08:00] VITALS: BP 125/53
--- NOTE | 2019-08-13 08:00 | NUR ---
MS RN OPENING NOTES Received Patient asleep and resting in bed. A/O x 4, Portuguese speaking. Patient in stable condition. Breathing even and unlabored on room air with no respiratory distress. No signs and symptoms of pain at this time. 20g PIV on LAC clean, intact, patent and flushing well. Safety precautions in place. Bed locked and set to lowest position with side rails x 2 up. All needs rendered at this time. Call light within reach. Will continue to monitor.
[2019-08-13] MEDS ORDERED: CARV3.122 PO (08:20)
[2019-08-13] MEDS ORDERED: MAG30ORA PO (08:20)
[2019-08-13] MEDS ORDERED: ACET325T53 PO (08:20)
[2019-08-13] MEDS ORDERED: AMLO2.5T4 PO (08:20)
[2019-08-13] MEDS ORDERED: FURO40TA5 PO (08:20)
[2019-08-13] MEDS ORDERED: ZOLP5TAB2 PO (08:20)
[2019-08-13] MEDS ORDERED: CLOT15CR5 TP (08:20)
[2019-08-13] MEDS ORDERED: FERR325T28 PO (08:20)
[2019-08-13] MEDS ORDERED: LEVO125T PO (08:20)
[2019-08-13] MEDS: LEVOTHYROXINE SODIUM 125 MCG TABLET PO SCH (08:43)
[2019-08-13 08:44] VITALS: BP 125/53
[2019-08-13 08:44] LABS: BASOPHILS % (AUTO) 0.4 % (0.0-2.0); EOSINOPHILS % (AUTO) 3.3 % (0.0-6.0); HEMATOCRIT 28 % (33-45); HEMOGLOBIN 8.7 g/dL (11.5-14.8); LYMPHOCYTES # (AUTO) 0.3 /CMM (0.8-4.8); LYMPHOCYTES % (AUTO) 11.9 % (20.0-44.0); MEAN CORPUSCULAR HGB CONC 31 g/dl (31.0-36.0); MEAN CORPUSCULAR VOLUME 93 fL (82-100); MONOCYTES # (AUTO) 0.2 /CMM (0.1-1.30); MONOCYTES % (AUTO) 6.7 % (2.0-12.0); NEUTROPHILS # (AUTO) 2.3 /CMM (1.8-8.9); NEUTROPHILS % (AUTO) 77.7 % (43.0-81.0); PLATELET COUNT (AUTO) 97 /CMM (150-450); RED BLOOD CELL COUNT(AUTO) 3.05 MIL/uL (4.0-5.2); WHITE BLOOD COUNT (AUTO) 2.9 K/uL (4.3-11.0)
[2019-08-13] MEDS: FUROSEMIDE 40 MG TABLET PO SCH (08:44)
[2019-08-13] MEDS: FOLIC ACID 1 MG TABLET PO SCH (08:44)
[2019-08-13] MEDS: FERROUS SULFATE (325 MG) 325 MG/TAB TABLET PO SCH ×2 (08:44→16:21)
[2019-08-13] MEDS: CARVEDILOL 3.125 MG TABLET PO SCH (08:44)
[2019-08-13] MEDS: AMLODIPINE BESYLATE 2.5 MG TABLET PO SCH (08:44)
[2019-08-13] MEDS: CLOTRIMAZOLE/BETAMETASONE DIPROPIONATE 15 GM TUBE TP SCH ×2 (08:52→16:41)
[2019-08-13 09:22] LABS: ALANINE AMINOTRANSFERASE 16 U/L (12-78); ALBUMIN 3.5 g/dL (3.4-5.0); ALKALINE PHOSPHATASE 107 U/L (46-116); ASPARTATE AMINOTRANSFERASE 19 U/L (15-37); BILIRUBIN,TOTAL 0.6 mg/dL (0.2-1.0); CALCIUM, SERUM 8.5 mg/dL (8.5-10.1); CARBON DIOXIDE 19 mmol/L (21-32); CHLORIDE 112 mmol/L (98-107); CREATININE 1.8 mg/dL (0.6-1.3); GLUCOSE 113 mg/dL (74-106); POTASSIUM 5.5 mmol/L (3.5-5.1); SODIUM SERUM 140 mmol/L (136-145); TOTAL PROTEIN, SERUM 6.7 g/dL (6.4-8.2); UREA NITROGEN, BLOOD 39 mg/dL (7-18)
--- NOTE | 2019-08-13 10:03 | NUR ---
MS RN NOTES Per Papi ELLIOTT, if K+ level is <5.5 may discharge Patient to home.
--- NOTE | 2019-08-13 11:28 | NUR ---
MS RN NOTES Per Nancy ELLIOTT, may discharge Patient to home.
[2019-08-13 11:31] LABS: BAND % (MANUAL) 1 % (0.0-5.0); EOSINOPHILS % (MANUAL) 2 % (0-4); LYMPHOCYTES % (MANUAL) 15 % (16-48); MONOCYTES % (MANUAL) 8 % (0-11.0); NEUTROPHILS % (MANUAL) 74 (42-76)
--- NOTE | 2019-08-13 16:41 | NUR ---
MS METAL BONDING WORKER NOTES Patient discharged for home at this time. Patient in stable condition. VS stable with no acute distress. Breathing even and unlabored on room air with no respiratory distress. Denies pain. Skin intact. Patient refused skin assessment photos. Medication reconciliation and discharge orders reviewed and explained to Patient and Grandson. Patient and Grandson verbalized understanding. All belongings with Patient. Patient will follow up with PCP in 1 week. Escorted Patient to the Lobby for safety. Patient picked up by Martin Clarke.
== END 2019-08-13 16:43 | disposition home or self-care (01) | DRG 432 ==
LOC: ER 00:42 → TELE 01:49 → MED 09:27
PROVIDERS: ADMIT Family Medicine; ATTEND Family Medicine
PROC: 02HV33Z Insertion of Infusion Device into Superior Vena Cava, Percutaneous Approach (ICD-10-PCS; principal; 2019-08-10)
PROC: B548ZZA Ultrasonography of Superior Vena Cava, Guidance (ICD-10-PCS; 2019-08-10)
PROC: 0W9G3ZZ Drainage of Peritoneal Cavity, Percutaneous Approach (ICD-10-PCS; 2019-08-10)
DX: K74.60 Unspecified cirrhosis of liver (principal); N18.6 End stage renal disease; I21.4 Non-ST elevation (NSTEMI) myocardial infarction; I13.2 Hypertensive heart and chronic kidney disease with heart failure and with stage 5 chronic kidney disease, or end stage renal disease; N39.0 Urinary tract infection, site not specified; R18.8 Other ascites; I50.22 Chronic systolic (congestive) heart failure; D61.818 Other pancytopenia; I48.20 Chronic atrial fibrillation, unspecified; I48.92 Unspecified atrial flutter; N25.81 Secondary hyperparathyroidism of renal origin; E87.5 Hyperkalemia; E11.22 Type 2 diabetes mellitus with diabetic chronic kidney disease; E03.9 Hypothyroidism, unspecified; F32.9 Major depressive disorder, single episode, unspecified; F09 Unspecified mental disorder due to known physiological condition; M19.90 Unspecified osteoarthritis, unspecified site; Z96.659 Presence of unspecified artificial knee joint; Z95.1 Presence of aortocoronary bypass graft; Z91.81 History of falling; Z87.11 Personal history of peptic ulcer disease; Z86.74 Personal history of sudden cardiac arrest; Z86.73 Personal history of transient ischemic attack (TIA), and cerebral infarction without residual deficits; Z83.3 Family history of diabetes mellitus; Z82.49 Family history of ischemic heart disease and other diseases of the circulatory system; L30.4 Erythema intertrigo; K42.9 Umbilical hernia without obstruction or gangrene; M79.7 Fibromyalgia; M81.0 Age-related osteoporosis without current pathological fracture; I25.2 Old myocardial infarction; I25.10 Atherosclerotic heart disease of native coronary artery without angina pectoris; E78.5 Hyperlipidemia, unspecified; F03.90 Unspecified dementia, unspecified severity, without behavioral disturbance, psychotic disturbance, mood disturbance, and anxiety; E11.319 Type 2 diabetes mellitus with unspecified diabetic retinopathy without macular edema; E11.42 Type 2 diabetes mellitus with diabetic polyneuropathy; Z79.890 Hormone replacement therapy; M10.9 Gout, unspecified; Z90.49 Acquired absence of other specified parts of digestive tract; Z88.1 Allergy status to other antibiotic agents; Z95.0 Presence of cardiac pacemaker; Z79.899 Other long term (current) drug therapy; D64.9 Anemia, unspecified; I07.1 Rheumatic tricuspid insufficiency; G47.00 Insomnia, unspecified; F43.10 Post-traumatic stress disorder, unspecified; I44.0 Atrioventricular block, first degree; I27.20 Pulmonary hypertension, unspecified; I44.7 Left bundle-branch block, unspecified; R41.3 Other amnesia; H16.429 Pannus (corneal), unspecified eye; M62.50 Muscle wasting and atrophy, not elsewhere classified, unspecified site
CPT/HCPCS: 36415; 71045-TC; 76942-TC; 80048-TC; 80053-TC; 80076-TC; 81000-TC; 82140-TC; 83540-TC; 83605-TC; 83690-TC; 83735-TC; 84132-TC; 84484-TC; 85025-TC; 85730-TC; 87040-TC; 87081-TC; 87086-TC; 87186-TC; A4216; C9113; G0378; J1956; J2405; J3490; J7040; P9047

== ENCOUNTER 2019-10-25 12:33 | Emergency (ER) | payer MEDICARE, OTHER ==
[~2019-10-25] VITALS: Ht 154.9 cm; Wt 79.8 kg
[~2019-10-25 12:33] MED LIST changes: +AMLO2.5T4 PO; +ASPI-1169 PO; +ATOR10TA PO; +BUDE10.2 IH; +BUME2TAB7 PO; +CLOT15CR5 TP; +ENAL2.5T PO; +FERR325T28 PO; +FOLI0.4T2 PO; -FOLI1TAB16 PO; +FURO40TA5 PO; +IBUP-1955 PO; -IPRA0.2S9 NEB; +ISOS20TA8 PO; -LEVO100T PO; +LEVO125T8 PO; +LINA5TAB PO; +MECL-159 PO; -PROP10TA68 PO; +RANI150T8 PO; +REPA2TAB10 PO; +ZOLP5TAB2 PO
--- NOTE | 2019-10-25 12:45 | NUR ---
patient bib ra from home, c/o abd distension due to ascitis. On room air, breathing evenly and unlabored. connected to the monitor and pulse ox. kept comfortable, will continue to monitor accordingly.
[2019-10-25 12:59] LABS: BASOPHILS % (AUTO) 0.2 % (0.0-2.0); EOSINOPHILS % (AUTO) 1.9 % (0.0-6.0); HEMATOCRIT 30 % (33-45); LYMPHOCYTES # (AUTO) 0.5 /CMM (0.8-4.8); LYMPHOCYTES % (AUTO) 9.3 % (20.0-44.0); MEAN CORPUSCULAR HGB CONC 30 g/dl (31.0-36.0); MEAN CORPUSCULAR VOLUME 97 fL (82-100); MONOCYTES # (AUTO) 0.3 /CMM (0.1-1.30); MONOCYTES % (AUTO) 5.1 % (2.0-12.0); NEUTROPHILS # (AUTO) 4.4 /CMM (1.8-8.9); NEUTROPHILS % (AUTO) 83.5 % (43.0-81.0); PLATELET COUNT (AUTO) 137 /CMM (150-450); RED BLOOD CELL COUNT(AUTO) 3.12 MIL/uL (4.0-5.2); WHITE BLOOD COUNT (AUTO) 5.2 K/uL (4.3-11.0)
[2019-10-25 13:08] LABS: CALCIUM, SERUM 8.9 mg/dL (8.5-10.1); CARBON DIOXIDE 25 mmol/L (21-32); CHLORIDE 104 mmol/L (98-107); CREATININE 1.9 mg/dL (0.6-1.3); GLUCOSE 243 mg/dL (74-106); POTASSIUM 4.9 mmol/L (3.5-5.1); SODIUM SERUM 138 mmol/L (136-145); UREA NITROGEN, BLOOD 50 mg/dL (7-18)
[2019-10-25] MEDS ORDERED: ALBUMIN 25% 100 ML IV ONE (13:56)
[2019-10-25] MEDS ORDERED: IV NS 0.9% 1,000 ML BAG IV ONE (14:00)
[2019-10-25] MEDS ORDERED: ALBUMIN 25% 12.5 GM/50 ML BOTTLE IV ONE (14:00)
--- NOTE | 2019-10-25 14:31 | NUR ---
Radiologist at bedside for US guided paracenthesis.
--- NOTE | 2019-10-25 15:25 | NUR ---
US guided paracenthesis done, took 5200 ml. in no distress, patient resting, connected to the monitor and pulse ox. will continue to monitor accordingly.
--- NOTE | 2019-10-25 17:03 | NUR ---
SON COMING TO LAY BROTHER PT IN 3O MIN
[2019-10-25 17:53] VITALS: BP 139/59
--- NOTE | 2019-10-25 17:53 | NUR ---
Patient discharged to home in stable condition. Written and verbal after care instructions given. Patient verbalizes understanding of instruction.IV removed. Catheter intact and site benign. Pressure and 4x4 applied to site. No bleeding noted.
== END 2019-10-25 17:53 | disposition home or self-care (01) ==
LOC: ER 12:39
DX: R18.8 Other ascites (principal); E86.0 Dehydration; R73.9 Hyperglycemia, unspecified; I10 Essential (primary) hypertension; G89.29 Other chronic pain; M10.9 Gout, unspecified; M19.90 Unspecified osteoarthritis, unspecified site; G62.9 Polyneuropathy, unspecified; Z86.73 Personal history of transient ischemic attack (TIA), and cerebral infarction without residual deficits; Z95.818 Presence of other cardiac implants and grafts; Z90.49 Acquired absence of other specified parts of digestive tract; Z98.890 Other specified postprocedural states; Z88.1 Allergy status to other antibiotic agents; Z79.899 Other long term (current) drug therapy; Z79.82 Long term (current) use of aspirin
CPT/HCPCS: 36415; 49083; 80048; 85025; 85730; 96361; 96365; 99285; J7030; P9047; 76942-TC

== ENCOUNTER 2019-12-18 20:36 | Inpatient (IN) | payer MEDICARE, OTHER ==
[~2019-12-18] VITALS: Ht 157.5 cm; Wt 84.1 kg
--- NOTE | 2019-12-18 20:50 | NUR ---
DR. LOCKWOOD SPEAKING WITH DR. HERRERA
--- NOTE | 2019-12-18 20:55 | NUR ---
BIBRA FROM HOME TO ER BED 6. AAOX3. NOT IN RESP DISTRESS, BREATHING EVEN ADN UNLABORED. BROUGHT IN FOR ABDOMINAL DISTENSION. NOTED PT'S ABDOMEN DISTENTED WITH GLOBULAR SHAPE. DENIES PAIN. DENIES NAUSEA AND VOMMTING. MD WAS AT BEDSIDE FOR EVAL.
--- NOTE | 2019-12-18 21:11 | NUR ---
[facility]
[2019-12-18 21:12] LABS: BASOPHILS % (AUTO) 0.4 % (0.0-2.0); EOSINOPHILS % (AUTO) 2.6 % (0.0-6.0); HEMATOCRIT 30 % (33-45); HEMOGLOBIN 9.1 g/dL (11.5-14.8); LYMPHOCYTES # (AUTO) 0.6 /CMM (0.8-4.8); LYMPHOCYTES % (AUTO) 9.6 % (20.0-44.0); MEAN CORPUSCULAR HGB CONC 30 g/dl (31.0-36.0); MEAN CORPUSCULAR VOLUME 91 fL (82-100); MONOCYTES # (AUTO) 0.3 /CMM (0.1-1.30); MONOCYTES % (AUTO) 5.5 % (2.0-12.0); NEUTROPHILS # (AUTO) 5.1 /CMM (1.8-8.9); NEUTROPHILS % (AUTO) 81.9 % (43.0-81.0); PLATELET COUNT (AUTO) 148 /CMM (150-450); WHITE BLOOD COUNT (AUTO) 6.3 K/uL (4.3-11.0)
[2019-12-18 21:32] LABS: ALANINE AMINOTRANSFERASE 11 U/L (12-78); ALBUMIN 3.2 g/dL (3.4-5.0); ALKALINE PHOSPHATASE 98 U/L (46-116); ASPARTATE AMINOTRANSFERASE 13 U/L (15-37); BILIRUBIN,DIRECT 0.2 mg/dL (0.0-0.2); BILIRUBIN,TOTAL 0.6 mg/dL (0.2-1.0); CALCIUM, SERUM 8.6 mg/dL (8.5-10.1); CARBON DIOXIDE 21 mmol/L (21-32); CHLORIDE 109 mmol/L (98-107); CREATININE 1.5 mg/dL (0.6-1.3); GLUCOSE 211 mg/dL (74-106); LIPASE 209 U/L (73-393); SODIUM SERUM 136 mmol/L (136-145); TOTAL PROTEIN, SERUM 7.8 g/dL (6.4-8.2); UREA NITROGEN, BLOOD 33 mg/dL (7-18)
[2019-12-18 21:36] LABS: POTASSIUM 6.5 mmol/L (3.5-5.1)
[2019-12-18] MEDS ORDERED: DEXTROSE 50%-WATER 50 ML DISP.SYRIN IVP ONE (22:00)
[2019-12-18] MEDS ORDERED: INSULIN REGULAR, HUMAN 100 UNIT/ML 3 ML VIAL IV ONE (22:00)
[2019-12-18] MEDS ORDERED: INSULIN REGULAR, HUMAN 100 UNIT/ML 10 ML VIAL ONE (22:03)
[2019-12-18] MEDS ORDERED: DEXTROSE 50%-WATER 50 ML DISP.SYRIN ONE (22:03)
--- NOTE | 2019-12-18 22:24 | NUR ---
iv line restarted on rfa 22g. iv l l hand 22g not working.
--- NOTE | 2019-12-18 22:30 | NUR ---
report given to talia stevens for ciera.
--- NOTE | 2019-12-18 22:55 | NUR ---
PT WAS TRANSFERRED TO THE THIRD FLOOR UNDER ACLS
[2019-12-18 23:00] VITALS: BP 156/76
[2019-12-18] MEDS ORDERED: DEXTROSE 50%-WATER 50 ML DISP.SYRIN IV PRN (23:00)
[2019-12-18] MEDS ORDERED: SODIUM POLYSTYRENE SULFONATE 15 G/60 ML BOTTLE PO ONE (23:00)
--- NOTE | 2019-12-18 23:05 | NUR ---
ASSISTANT PROFESSOR NURSE EDUCATION ADMISSION NOTES, RECEIVED 88 YO FEMALE FROM ER DEPARTMENT, VIA STRETCHER ACCOMPANIED BY 2 NURSES, UNDER MEDICAL SERVICES OF [facility], WITH MEDICAL DX, ASCITES, PATIENT A/O TO SELF, CITIZEN OF [place] SPEAKING, DENIES PAIN OR DISCOMFORT, BREATHING EVEN AND UNLABORED, NO S/S OF ANY SOB/ACUTE DISTRESS NOTED AT THIS TIME, VS UPON ADMISSION 156/76, 60, 99% O2, 20, 97.6, PACEMAKER IN PLACED, A PACING ON TELE MONITOR, AFEBRILE, SKIN DRY WARM AND INTACT, CALL LIGHT W/I REACH, WILL BE NPO FOR US PARACENTESIS TOMORROW, EXPLAINED TO PATIENT AND VERBALIZED UNDERSTANDING, BED LOCKED AND LOW POSITION, ALARM ON, WILL CONTINUE TO MONITOR CLOSELY.
[2019-12-18] MEDS ORDERED: ALBUMIN 25% 50 ML IV ONE (23:40)
[2019-12-18] MEDS ORDERED: SODIUM POLYSTYRENE SULFONATE 15 G/60 ML BOTTLE ONE ×2 (23:41→23:45)
[2019-12-19] VITALS: BP 156/76
[2019-12-19] MEDS: ALBUMIN 25% 12.5 GM in PREMIX 1 EA IV SCH ×4 (00:14→20:46)
[2019-12-19] MEDS: BLOOD SUGAR DIAGNOSTIC 1 EACH STRIP IN SCH ×4 (00:36→17:46)
[2019-12-19] MEDS: INSULIN REGULAR, HUMAN 100 UNIT/ML 3 ML VIAL SQ PRN ×3 (00:40→17:46)
[2019-12-19 04:00] VITALS: BP 146/79
--- NOTE | 2019-12-19 06:00 | NUR ---
RN NOTES, INSULIN PER SINDING SCALE NOT ADMINISTERED AT 0000 AND 0600 DUE TO PATIENT NPO AND BLOOD SUGAR 132 AT MIDNIGHT AND 143 AT 0600.
--- NOTE | 2019-12-19 06:45 | NUR ---
RN CLOSING NOTES, AWAKE, A/O TO SELF NO SOB/ACUTE DISTRESS NOTED, AT R2LPM VIA NC TOLERATED WELL, NO SIGNIFICANT CHANGE IN CONDITION, WILL HAVE CT GUIDED PARACENTESIS THIS MORNING, NPO SINCE MIDNIGHT, WILL ENDORSE CONTINUITY OF CARE TO ONCOMING NURSE.
--- NOTE | 2019-12-19 07:18 | NUR ---
RN NOTES, PER PHARMACY TO CLARIFY THE ORDER FOR ALBUMIN SINCE DR HERRERA ORDERED Q8H, AND PER PHARMACY NOT SUPPOSE TO BE LIKE THAT, TRIED TO CALL MD, UNABLE TO REACH, WILL ENDORSE TO ONCOMING NURSE.
--- NOTE | 2019-12-19 07:30 | NUR ---
BEE TENDER/ OPENING NOTES RECEIVED PATIENT RESTING IN BED, A/O TO SELF. NO SIGNS OF SOB OR ACUTE DISTRESS NOTED. PATIENT 2LPM OXYGEN VIA N/C TOLERATING WELL, TELE READING 88 SINUS R. PATIENT HAS RIGHT FOREARM IV #22G PATENT AND INTACT. WILL HAVE CT GUIDED PARACENTESIS THIS MORNING, NPO SINCE MIDNIGHT. SAFETY MEASURES IN PLACE, BED LOCKED AND IN LOW POSITION, CALL LIGHT IS WITHIN REACH. WILL CONTINUE TO MONITOR PATIENT THROUGH OUT SHIFT.
[2019-12-19 08:00] VITALS: BP 130/62
--- NOTE | 2019-12-19 08:11 | NUR ---
TELE/RN NOTE RECEIVED CALL FROM ZAY (PHARMACY) INFORMING THAT ALBUMIN DUE AT 0500 WAS NOT ADMINISTERED AND I WAS ASKED TO ADMINISTER THE MEDICATION AT THIS TIME. THE MEDICATION IS ADMINISTERED.
[2019-12-19 08:24] LABS: CALCIUM, SERUM 8.6 mg/dL (8.5-10.1); CARBON DIOXIDE 19 mmol/L (21-32); CHLORIDE 107 mmol/L (98-107); CREATININE 1.6 mg/dL (0.6-1.3); GLUCOSE 152 mg/dL (74-106); SODIUM SERUM 136 mmol/L (136-145); UREA NITROGEN, BLOOD 33 mg/dL (7-18)
[2019-12-19 08:34] LABS: POTASSIUM 6.3 mmol/L (3.5-5.1)
--- NOTE | 2019-12-19 09:12 | NUR ---
TELE/RN NOTE DR HERRERA IS PAGED TO REPORT POTASSIUM LEVEL OF 6.3. WAITING FOR CALL BACK. THE PATIENT IN NO APPARENT DISTRESS AT THIS TIME.
[2019-12-19] MEDS ORDERED: SODIUM POLYSTYRENE SULFONATE 15 G/60 ML BOTTLE RC ONE (10:00)
--- NOTE | 2019-12-19 10:01 | NUR ---
TELE/RN NOTE THE PATIENT SEEN BY DR HERRERA AND NEW ORDER OF KAYEXELATE 60 G RC X1 RECEIVED. THE ORDER IS READ BACK, VERIFIED. NOTED AND CARRIED OUT.
--- NOTE | 2019-12-19 10:46 | NUR ---
TELE/RN NOTE THE PATIENT`S KAYEXELATE IS DELIVERED NOW BUT WAITING FOR ENEMA TUBING TO BE DELIVERED BT CENTRAL SUPPLY. CENTRAL SUPPLY FOLLOW UP IS DONE.
[2019-12-19] MEDS ORDERED: BUMETANIDE INJ 0.25 MG/ML VIAL IV ONE (11:30)
[2019-12-19 12:00] VITALS: BP 141/68
--- NOTE | 2019-12-19 14:01 | NUR ---
TELE/RN NOTE BMP DUE AT 1300 IS NOT CHECKED SCHEDULED DUE TO PATIENT WAS GIVEN ORDERED KAYEXELATE BUT SHE HAS NOT HAVE BM YET. WILL CHECK BMP LATER AFTER PATIENT HAS BM PER DR HERRERA.
[2019-12-19 16:00] VITALS: BP 142/55
--- NOTE | 2019-12-19 18:00 | NUR ---
TELE/RN NOTE SEVERAL CALLS WERE MADE DR HERRERA`S OFFICE TO FOLLOW UP FOR MED RECON, HOWEVER, UNABLE TO REACH MD. WILL ENDORSE TO UPCOMING SHIFTS TO CONTINUE FOLLOW UP WITH MD.
--- NOTE | 2019-12-19 18:22 | NUR ---
CIGARETTE PAPER TESTER/ CLOSING NOTES PATIENT AWAKE AND RESTING IN BED ALERT AND ORIENTED X 3. PATIENT IS O2 AT 2LPM VIA N/C AND STATING WELL. TELE READING AT 60 SINUS RHYTHM. NO S/S OF SOB OR DISTRESS AT THIS TIME NOTED. IV ON RIGHT FOREARM #22G SALINE LOCK. PARACENTESIS DONE DURING SHIFT 6410 ML OF FLUID REMOVED. PATIENT SHOWS NO SIGNS OF PAIN. SAFETY MEASURES IN PLACE, BED IN LOW POSITION AND LOCKED, SIDE RAILS UP X 2, CALL LIGHT WITHIN REACH. WILL ENDORSE PATIENT CARE TO INDUSTRIAL GAS SERVICER SUPERVISOR.
--- NOTE | 2019-12-19 18:51 | NUR ---
TELE/RN NOTE BMP RESULTS PENDING AT THIS TIME. WILL ENDORSE TO PAPER SORTER TO CONTINUE TO FOLLOW UP FOR THE RESULTS.
[2019-12-19 18:59] LABS: CALCIUM, SERUM 8.2 mg/dL (8.5-10.1); CARBON DIOXIDE 21 mmol/L (21-32); CHLORIDE 108 mmol/L (98-107); CREATININE 1.5 mg/dL (0.6-1.3); GLUCOSE 187 mg/dL (74-106); POTASSIUM 5.9 mmol/L (3.5-5.1); SODIUM SERUM 138 mmol/L (136-145); UREA NITROGEN, BLOOD 32 mg/dL (7-18)
[2019-12-19 20:00] VITALS: BP 115/53
[2019-12-20] VITALS: BP 137/50
[2019-12-20] MEDS: BLOOD SUGAR DIAGNOSTIC 1 EACH STRIP IN SCH ×3 (00:08→11:40)
[2019-12-20] MEDS: INSULIN REGULAR, HUMAN 100 UNIT/ML 3 ML VIAL SQ PRN ×2 (00:16→11:40)
[2019-12-20 04:00] VITALS: BP_SYST 133; BP_SYST 137; BP_DIAS 66; BP_DIAS 90
[2019-12-20] MEDS: ALBUMIN 25% 12.5 GM in PREMIX 1 EA IV SCH ×2 (05:07→12:41)
[2019-12-20 06:29] LABS: BASOPHILS % (AUTO) 0.4 % (0.0-2.0); EOSINOPHILS % (AUTO) 2.7 % (0.0-6.0); HEMATOCRIT 25 % (33-45); HEMOGLOBIN 7.6 g/dL (11.5-14.8); LYMPHOCYTES # (AUTO) 0.4 /CMM (0.8-4.8); LYMPHOCYTES % (AUTO) 15.6 % (20.0-44.0); MEAN CORPUSCULAR HGB CONC 30 g/dl (31.0-36.0); MEAN CORPUSCULAR VOLUME 91 fL (82-100); MONOCYTES # (AUTO) 0.2 /CMM (0.1-1.30); MONOCYTES % (AUTO) 7.2 % (2.0-12.0); NEUTROPHILS # (AUTO) 2.1 /CMM (1.8-8.9); NEUTROPHILS % (AUTO) 74.1 % (43.0-81.0); PLATELET COUNT (AUTO) 97 /CMM (150-450); RED BLOOD CELL COUNT(AUTO) 2.77 MIL/uL (4.0-5.2); WHITE BLOOD COUNT (AUTO) 2.8 K/uL (4.3-11.0)
[2019-12-20 06:55] LABS: CALCIUM, SERUM 8.4 mg/dL (8.5-10.1); CARBON DIOXIDE 21 mmol/L (21-32); CHLORIDE 109 mmol/L (98-107); CREATININE 1.6 mg/dL (0.6-1.3); GLUCOSE 105 mg/dL (74-106); MAGNESIUM 2.1 mg/dL (1.8-2.4); PHOSPHORUS 3.5 mg/dL (2.5-4.9); SODIUM SERUM 140 mmol/L (136-145); UREA NITROGEN, BLOOD 32 mg/dL (7-18)
--- NOTE | 2019-12-20 07:30 | NUR ---
QUAIL FARMER/ OPENING NOTES RECEIVED PATIENT RESTING IN BED, ALERT AND ORIENTED X 1. NO SIGNS OF SOB OR ACUTE DISTRESS NOTED. PATIENT 2LPM OXYGEN VIA N/C TOLERATING WELL, TELE READING 60-61 HR SINUS R. PATIENT HAS RIGHT FOREARM IV #22G PATENT AND INTACT. PATIENT DOSE NOT LOOK TO BE IN PAIN AT THE MOMENT. SAFETY MEASURES IN PLACE, BED LOCKED AND IN LOW POSITION, CALL LIGHT IS WITHIN REACH. WILL CONTINUE TO MONITOR PATIENT THROUGH OUT SHIFT.
[2019-12-20 08:00] VITALS: BP 144/64
[2019-12-20 10:34] LABS: BAND % (MANUAL) 2 % (0.0-5.0); EOSINOPHILS % (MANUAL) 3 % (0-4); LYMPHOCYTES % (MANUAL) 12 % (16-48); MONOCYTES % (MANUAL) 9 % (0-11.0); NEUTROPHILS % (MANUAL) 74 (42-76)
--- NOTE | 2019-12-20 10:36 | NUR ---
TELE/RN NOTE DR HERRERA IS MADE AWARE OF PATIENT`S POTASSIUM LEVEL OF 6.0, HGB OF 7.6. PER MADE HE ALREADY LOOKED AT ALL THE LABS. RECEIVED NEW ORDERS OF KAYEXELATE 60 G RECTALLY X1 AND FERRLICET 125 MG IV X1. THE ORDERS AREA READ BACK, VERIFIED. NOTED AND CARRIED OUT. Addendum: 12/20/19 at 1039 by PORTIA CRAIN RN TELE/RN NOTE ALSO, STATED THAT THE PATIENT WILL GET DISCHARGED TODAY. ASKED AN ORDER TO RECHECK THE PATIENT`S POTASSIUM LEVEL BEFORE THE PATIENT GETS DISCHARGE, HOWEVER, PER NO NEED TO RECHECK THE POTASSIUM LEVEL AFTER KAYEXELATE AND BEFORE DISCHARGE.
[2019-12-20] MEDS ORDERED: SOD FERRIC GLUC 125 MG in IV NS 0.9% 100 ML IV ONE (11:00)
[2019-12-20] MEDS ORDERED: SODIUM POLYSTYRENE SULFONATE 15 G/60 ML BOTTLE RC ONE (11:00)
[2019-12-20] MEDS ORDERED: BUMETANIDE INJ 0.25 MG/ML VIAL IV ONE (12:00)
[2019-12-20 15:36] LABS: CALCIUM, SERUM 8.8 mg/dL (8.5-10.1); CARBON DIOXIDE 21 mmol/L (21-32); CHLORIDE 110 mmol/L (98-107); CREATININE 1.6 mg/dL (0.6-1.3); GLUCOSE 144 mg/dL (74-106); POTASSIUM 5.7 mmol/L (3.5-5.1); SODIUM SERUM 139 mmol/L (136-145); UREA NITROGEN, BLOOD 33 mg/dL (7-18)
--- NOTE | 2019-12-20 15:59 | NUR ---
MS/RN NOTE DR HONG IS MADE AWARE OF POTASSIUM LEVEL OF 5.7. MD CLEARED THE PATIENT FOR DISCHARGE.
[2019-12-20 16:00] VITALS: BP 162/61
--- NOTE | 2019-12-20 18:10 | NUR ---
MS/RN NOTE THE PATIENT ALERT AND ORIENTED X4. DENIES PAIN. RESPIRATION REGULAR AND UNLABORED. IN ROOM AIR AND DENIES SOB. OXYGEN SATURATION IN ROOM AIR IS AT 97%. PATIENT IN NO APPARENT DISTRESS. DISCHARGE EDUCATION PROVIDED AND THE PATIENT VERBALIZED UNDERSTANDING. THE PATIENT GOT PICKED UP BY HIS SON. LEFT THE HOSPITAL IN STABLE CONDITION.
== END 2019-12-20 18:00 | disposition home health service (06) | DRG 433 ==
LOC: ER 20:38 → MED 21:20 → TELE 22:35 → MED 12-20 07:59
PROVIDERS: ADMIT Family Medicine; ATTEND Family Medicine
PROC: 0W9G3ZZ Drainage of Peritoneal Cavity, Percutaneous Approach (ICD-10-PCS; principal; 2019-12-19)
DX: K74.60 Unspecified cirrhosis of liver (principal); R18.8 Other ascites; I13.0 Hypertensive heart and chronic kidney disease with heart failure and stage 1 through stage 4 chronic kidney disease, or unspecified chronic kidney disease; N17.9 Acute kidney failure, unspecified; D61.818 Other pancytopenia; I50.22 Chronic systolic (congestive) heart failure; N25.81 Secondary hyperparathyroidism of renal origin; I48.92 Unspecified atrial flutter; I48.20 Chronic atrial fibrillation, unspecified; I11.0 Hypertensive heart disease with heart failure; I50.9 Heart failure, unspecified; N18.9 Chronic kidney disease, unspecified; E11.22 Type 2 diabetes mellitus with diabetic chronic kidney disease; E87.5 Hyperkalemia; E11.42 Type 2 diabetes mellitus with diabetic polyneuropathy; E11.319 Type 2 diabetes mellitus with unspecified diabetic retinopathy without macular edema; K42.9 Umbilical hernia without obstruction or gangrene; F09 Unspecified mental disorder due to known physiological condition; G89.29 Other chronic pain; M19.90 Unspecified osteoarthritis, unspecified site; M10.9 Gout, unspecified; Z87.11 Personal history of peptic ulcer disease; Z95.1 Presence of aortocoronary bypass graft; Z90.49 Acquired absence of other specified parts of digestive tract; Z96.659 Presence of unspecified artificial knee joint; Z95.0 Presence of cardiac pacemaker; Z79.899 Other long term (current) drug therapy; F03.90 Unspecified dementia, unspecified severity, without behavioral disturbance, psychotic disturbance, mood disturbance, and anxiety; E78.5 Hyperlipidemia, unspecified; I25.10 Atherosclerotic heart disease of native coronary artery without angina pectoris; I25.2 Old myocardial infarction; F32.9 Major depressive disorder, single episode, unspecified; Z86.73 Personal history of transient ischemic attack (TIA), and cerebral infarction without residual deficits; Z91.81 History of falling; Z83.3 Family history of diabetes mellitus; Z82.49 Family history of ischemic heart disease and other diseases of the circulatory system; E03.9 Hypothyroidism, unspecified; Z79.890 Hormone replacement therapy; F43.10 Post-traumatic stress disorder, unspecified; M81.0 Age-related osteoporosis without current pathological fracture; I07.1 Rheumatic tricuspid insufficiency; I27.20 Pulmonary hypertension, unspecified; I44.0 Atrioventricular block, first degree; M79.7 Fibromyalgia; R41.3 Other amnesia; I44.7 Left bundle-branch block, unspecified; H91.93 Unspecified hearing loss, bilateral; L53.9 Erythematous condition, unspecified; R23.9 Unspecified skin changes
CPT/HCPCS: 36415; 71045-TC; 76942-TC; 80048-TC; 80076-TC; 82040-TC; 82962-TC; 83690-TC; 83735-TC; 83880; 84100-TC; 85025-TC; 85730-TC; 87081-TC; A4216; G0378; J1815; J2916; J3490; J7030; J7050; P9047

== ENCOUNTER 2020-01-02 18:23 | Inpatient (IN) | payer MEDICARE, OTHER ==
[~2020-01-02] VITALS: Ht 162.6 cm; Wt 73.5 kg
[~2020-01-02 18:23] MED LIST changes: -ACET325T53 PO; -ALLA266C2 TP; -AMLO2.5T4 PO; -ASPI-1169 PO; -ATOR10TA PO; -CARV3.122 PO; -CLOT15CR5 TP; -FERR325T28 PO; -FURO40TA5 PO; -IBUP-1955 PO; -LEVO125T PO; -LINA5TAB PO; -MAG30ORA PO; -MISO100T PO; -PANT40VI IV; -SPIR25TA6 PO; -ZOLP5TAB2 PO
--- NOTE | 2020-01-02 19:05 | NUR ---
IV initiated and blood drawned and sent to lab.
--- NOTE | 2020-01-02 19:05 | NUR ---
patient bibra c/o abd pain and sob. on room air, breathing evenly andunlabored. connected to the monitor and pulse ox. kept comfortable, will continue to monitor accordingly.
--- NOTE | 2020-01-02 19:08 | NUR ---
report given to Yusra BURK for ciera
[2020-01-02 19:16] LABS: BASOPHILS % (AUTO) 0.5 % (0.0-2.0); EOSINOPHILS % (AUTO) 2.9 % (0.0-6.0); HEMATOCRIT 28 % (33-45); HEMOGLOBIN 8.2 g/dL (11.5-14.8); LYMPHOCYTES # (AUTO) 0.5 /CMM (0.8-4.8); LYMPHOCYTES % (AUTO) 12.6 % (20.0-44.0); MEAN CORPUSCULAR HGB CONC 30 g/dl (31.0-36.0); MEAN CORPUSCULAR VOLUME 93 fL (82-100); MONOCYTES # (AUTO) 0.3 /CMM (0.1-1.30); MONOCYTES % (AUTO) 7.1 % (2.0-12.0); NEUTROPHILS # (AUTO) 3.2 /CMM (1.8-8.9); NEUTROPHILS % (AUTO) 76.9 % (43.0-81.0); PLATELET COUNT (AUTO) 131 /CMM (150-450); RED BLOOD CELL COUNT(AUTO) 2.97 MIL/uL (4.0-5.2); WHITE BLOOD COUNT (AUTO) 4.2 K/uL (4.3-11.0)
[2020-01-02 19:27] LABS: ABG BASE EXCESS -8.5 mmol/L; ABG OXYGEN SATURATION 96.5 % (92.0-98.5); ABG PCO2 32.2 mmHg (35.0-45.0); ABG PH 7.328 (7.350-7.450); ABG PO2 95.5 mmHg (75.0-100.0); AaDO2 15.7 mmHg; COHb 0.5 % (0.5-1.5); MetHb 0.3 % (0.0-1.5); O2Hb 95.7 % (94.0-97.0); SITE, ABG Left Radial; VENT MODE, BG ROOM AIR
--- NOTE | 2020-01-02 19:35 | NUR ---
unrine collected/ covid swab done and sent to lab
[2020-01-02 19:38] LABS: ALANINE AMINOTRANSFERASE 11 U/L (12-78); ALBUMIN 3.1 g/dL (3.4-5.0); ALKALINE PHOSPHATASE 100 U/L (46-116); ASPARTATE AMINOTRANSFERASE 13 U/L (15-37); B-TYPE NATRIURETIC PEPTIDE 14222 PG/ML (0-125); BILIRUBIN,TOTAL 0.5 mg/dL (0.2-1.0); CALCIUM, SERUM 8.5 mg/dL (8.5-10.1); CARBON DIOXIDE 20 mmol/L (21-32); CHLORIDE 108 mmol/L (98-107); CREATININE 1.6 mg/dL (0.6-1.3); GLUCOSE 188 mg/dL (74-106); SODIUM SERUM 135 mmol/L (136-145); TOTAL PROTEIN, SERUM 7.5 g/dL (6.4-8.2); UREA NITROGEN, BLOOD 33 mg/dL (7-18)
[2020-01-02 19:45] LABS: POTASSIUM 7.7 mmol/L (3.5-5.1)
[2020-01-02 19:49] LABS: APPEARANCE,URINE Clear (CLEAR); BACTERIA,URINE None seen /HPF (None Seen); BILIRUBIN,URINE Negative (NEGATIVE); BLOOD, URINE Trace-lysed Ery/uL (NEGATIVE); COLOR,URINE Yellow (YELLOW); KETONES,URINE Negative (NEGATIVE); LEUKOCYTE ESTERASE ,URINE Negative (NEGATIVE); NITRITE, URINE Negative (NEGATIVE); PROTEIN,URINE 100 mg/dl (NEGATIVE); RBC,URINE 0-2 /HPF (0-2); SQUAMOUS EPITHELIAL CELL,UR Few /HPF (None Seen); UGLUCOSE Negative (NEGATIVE); UROBILINOGEN,URINE 0.2 EU/dL (0.2); WBC,URINE 0-2 /HPF (0-3)
[2020-01-02] MEDS ORDERED: CALCIUM CHLORIDE 1,000 MG/10 ML DISP.SYRIN IV ONE (20:00)
[2020-01-02] MEDS ORDERED: SODIUM BICARBONATE SYR 50 MEQ/50 ML DISP.SYRIN IV ONE ×2 (20:00→20:30)
[2020-01-02] MEDS ORDERED: INSULIN REGULAR, HUMAN 100 UNIT/ML 10 ML VIAL IV ONE (20:00)
[2020-01-02] MEDS ORDERED: FUROSEMIDE 40 MG/4 ML VIAL IV ONE (20:00)
[2020-01-02] MEDS ORDERED: INSULIN REGULAR, HUMAN 100 UNIT/ML 10 ML VIAL ONE (20:01)
[2020-01-02] MEDS ORDERED: FUROSEMIDE 40 MG/4 ML VIAL ONE (20:01)
[2020-01-02] MEDS ORDERED: SODIUM BICARBONATE SYR 50 MEQ/50 ML DISP.SYRIN ONE ×2 (20:01→20:50)
[2020-01-02] MEDS ORDERED: CALCIUM CHLORIDE 1,000 MG/10 ML DISP.SYRIN ONE (20:01)
--- NOTE | 2020-01-02 20:02 | NUR ---
LEFT FOR CT
--- NOTE | 2020-01-02 20:17 | NUR ---
PT BACK FROM CT
[2020-01-02] MEDS ORDERED: ALBUMIN 25% 0 ML IV ONE (20:22)
[2020-01-02 20:25] LABS: D-DIMER 3.89 mg/L(FEU (0.17-0.50)
[2020-01-02 20:29] LABS: CREATINE KINASE, TOTAL 45 U/L (26-192); FERRITIN 67 ng/mL (8-388)
[2020-01-02] MEDS ORDERED: BUMETANIDE INJ 2 MG in IV NS 0.9% 32 ML IV ONE (20:30)
[2020-01-02] MEDS ORDERED: SODIUM POLYSTYRENE SULF. PWD 15 GM UDC RC ONE (20:30)
[2020-01-02] MEDS ORDERED: DEXTROSE 50%-WATER 50 ML DISP.SYRIN IVP PRN (20:30)
[2020-01-02 20:31] LABS: C-REACTIVE PROTEIN 2.2 mg/dL (0.0-0.9)
[2020-01-02] MEDS ORDERED: DEXTROSE 50%-WATER 50 ML DISP.SYRIN ONE (20:32)
[2020-01-02] MEDS ORDERED: BUMETANIDE INJ 0.25 MG/ML VIAL ONE (20:50)
[2020-01-02] MEDS ORDERED: SODIUM POLYSTYRENE SULFONATE 15 G/60 ML BOTTLE ONE (20:50)
[2020-01-02] MEDS ORDERED: ALBUMIN 25% 50 ML IV ONE (20:50)
[2020-01-02] MEDS: Sodium Bicarbonate 100 MEQ in IV 1/2NS 1000 ML 1,000 ML IV PRN (21:07)
[2020-01-02] MEDS: ALBUMIN 25% 25 GM in PREMIX 1 EA IV SCH (21:13)
--- NOTE | 2020-01-02 21:18 | NUR ---
REPORT GIVEN TO RN ON FLOOR
[2020-01-03] VITALS: BP 164/72
[2020-01-03] MEDS ORDERED: ONDANSETRON HCL/PF 4 MG/2 ML VIAL IV PRN
[2020-01-03] MEDS ORDERED: SODIUM BICARBONATE SYR 50 MEQ/50 ML DISP.SYRIN ONE (00:12)
[2020-01-03 04:00] VITALS: BP 137/51
[2020-01-03] MEDS: ALBUMIN 25% 25 GM in PREMIX 1 EA IV SCH ×2 (05:20→12:58)
[2020-01-03] MEDS ORDERED: SODIUM POLYSTYRENE SULFONATE 15 G/60 ML BOTTLE RC ONE (06:00)
[2020-01-03 07:09] LABS: BASOPHILS % (AUTO) 0.5 % (0.0-2.0); EOSINOPHILS % (AUTO) 3.4 % (0.0-6.0); HEMATOCRIT 29 % (33-45); HEMOGLOBIN 8.8 g/dL (11.5-14.8); LYMPHOCYTES # (AUTO) 0.7 /CMM (0.8-4.8); LYMPHOCYTES % (AUTO) 16.4 % (20.0-44.0); MEAN CORPUSCULAR HGB CONC 31 g/dl (31.0-36.0); MEAN CORPUSCULAR VOLUME 90 fL (82-100); MONOCYTES # (AUTO) 0.4 /CMM (0.1-1.30); MONOCYTES % (AUTO) 9.2 % (2.0-12.0); NEUTROPHILS # (AUTO) 3.1 /CMM (1.8-8.9); NEUTROPHILS % (AUTO) 70.5 % (43.0-81.0); PLATELET COUNT (AUTO) 140 /CMM (150-450); RED BLOOD CELL COUNT(AUTO) 3.18 MIL/uL (4.0-5.2); WHITE BLOOD COUNT (AUTO) 4.4 K/uL (4.3-11.0)
--- NOTE | 2020-01-03 07:48 | NUR ---
RN OPENING NOTES RECEIVED PATIENT RESTING IN BED, A/O X4, ENGLISH SPEAKING ONLY. PATIENT IS ON ROOM AIR, SATURATING WELL, NO SIGNS AND SYMPTOMS OF RESPIRATORY DISTRESS NOTED. O2 SATURATION IS 98% ON RA. BREATHING IS EVEN AND UNLABORED. ON TELE MONITOR WITH SR NOTED. IV ON RIGHT HAND, INTACT, PATENT, AND FLUSHED WELL. ALBUMIN IS RUNNING ORDERED. PATIENT SAFETY MAINTAINED, CALL LIGHT WITHIN REACH, WILL CONTINUE TO MONITOR CLOSELY.
[2020-01-03 08:00] VITALS: BP 156/68
[2020-01-03 08:08] LABS: ALANINE AMINOTRANSFERASE 13 U/L (12-78); ALBUMIN 3.5 g/dL (3.4-5.0); ALKALINE PHOSPHATASE 91 U/L (46-116); ASPARTATE AMINOTRANSFERASE 12 U/L (15-37); BILIRUBIN,TOTAL 0.9 mg/dL (0.2-1.0); CALCIUM, SERUM 9.1 mg/dL (8.5-10.1); CARBON DIOXIDE 22 mmol/L (21-32); CREATININE 1.6 mg/dL (0.6-1.3); GLUCOSE 81 mg/dL (74-106); TOTAL PROTEIN, SERUM 8.1 g/dL (6.4-8.2); UREA NITROGEN, BLOOD 32 mg/dL (7-18)
[2020-01-03 08:14] LABS: CHLORIDE 106 mmol/L (98-107); SODIUM SERUM 137 mmol/L (136-145)
[2020-01-03 08:18] LABS: POTASSIUM 6.8 mmol/L (3.5-5.1)
[2020-01-03] MEDS ORDERED: BUMETANIDE INJ 0.25 MG/ML VIAL IV ONE (08:30)
[2020-01-03] MEDS ORDERED: SODIUM POLYSTYRENE SULF. PWD 15 GM UDC RC ONE (08:30)
[2020-01-03] MEDS ORDERED: hydrALAZINE HCL 25 MG TABLET PO PRN (08:30)
[2020-01-03 09:00] LABS: IRON, SERUM 47 ug/dl (50-175); TOTAL IRON BINDING CAPACITY 251 ug/dl (250-450)
[2020-01-03] MEDS ORDERED: BUMETANIDE (1 MG) 1 MG TABLET PO SCH (09:00)
[2020-01-03] MEDS: FLUTICASONE/VILANTEROL 1 EACH BLST.W.DEV IH SCH (09:05)
[2020-01-03] MEDS: FOLIC ACID 1 MG TABLET PO SCH (09:06)
[2020-01-03] MEDS: MECLIZINE HCL 25 MG TABLET PO SCH (09:06)
[2020-01-03] MEDS: FAMOTIDINE (20 MG) 20 MG TABLET PO SCH ×2 (09:06→20:23)
[2020-01-03] MEDS: AMLODIPINE BESYLATE 5 MG TABLET PO SCH (09:08)
[2020-01-03] MEDS: ISOSORBIDE DINITRATE (20MG) 20 MG TABLET PO SCH ×3 (09:17→17:22)
[2020-01-03] MEDS: FERROUS SULFATE (325 MG) 325 MG/TAB TABLET PO SCH ×2 (09:17→17:23)
[2020-01-03] MEDS: PANTOPRAZOLE 40 MG TABLET.DR PO SCH (09:19)
[2020-01-03] MEDS: LEVOTHYROXINE SODIUM 125 MCG TABLET PO SCH (09:19)
[2020-01-03] MEDS: REPAGLINIDE 0.5 MG TABLET PO SCH ×2 (11:48→17:22)
--- NOTE | 2020-01-03 11:48 | NUR ---
RN NOTE HOLDING PRANDIN BECAUSE PATIENT IS NOT EATING
[2020-01-03 12:00] VITALS: BP 122/50
[2020-01-03] MEDS ORDERED: REPAGLINIDE 2 MG TABLET PO SCH (12:00)
[2020-01-03 12:48] LABS: CALCIUM, SERUM 8.6 mg/dL (8.5-10.1); CARBON DIOXIDE 26 mmol/L (21-32); CHLORIDE 107 mmol/L (98-107); CREATININE 1.6 mg/dL (0.6-1.3); GLUCOSE 120 mg/dL (74-106); SODIUM SERUM 139 mmol/L (136-145); UREA NITROGEN, BLOOD 32 mg/dL (7-18)
[2020-01-03 12:51] LABS: POTASSIUM 6.5 mmol/L (3.5-5.1)
[2020-01-03] MEDS: PROPRANOLOL HCL 10 MG TABLET PO SCH ×2 (12:58→20:24)
[2020-01-03] MEDS: Sodium Bicarbonate 100 MEQ in IV 1/2NS 1000 ML 1,000 ML IV PRN (13:11)
[2020-01-03] MEDS: IPRATROPIUM BROMIDE 14 GM INHALER (or 12.9 GM) IH SCH ×2 (13:30→20:29)
[2020-01-03] MEDS: SOD FERRIC GLUC 125 MG in IV NS 0.9% 100 ML IV SCH (14:18)
[2020-01-03 16:00] VITALS: BP 115/51
[2020-01-03] MEDS ORDERED: SODIUM POLYSTYRENE SULF. PWD 15 GM UDC PO ONE (18:00)
[2020-01-03] MEDS: METOLAZONE 2.5 MG TABLET PO SCH (18:43)
--- NOTE | 2020-01-03 19:30 | NUR ---
PATIENT ASSESSMENT COORDINATOR NOTES RECEIVED PATIENT IN BED AOX4 IN STABLE CONDITION. PATIENT IS PORTUGUESE SPEAKING. BREATHING NORMAL NO SOB NOTED RESPIRATION EVEN NON LABORED. ON RA SATURATING WELL 98-99%. TELE MONITOR READING SR. RT HAND IV SITE PATENT INTACT FLUSHING WELL. FLUID RUNNING WELL. PATIENT DENIES ANY PAIN OR DISCOMFORT. ALL SAFETY MEASURES IN PLACE. BED IN LOW AND LOCKED POSITION, SIDE RAILS UP X2. CALL LIGHT WITHIN REACH. WILL CONT TO MONITOR FOR HOMER.
[2020-01-03 20:00] VITALS: BP 144/63
[2020-01-04] VITALS (7 sets, daily range): BP systolic 95–129; BP diastolic 39–73
[2020-01-04] MEDS: IPRATROPIUM BROMIDE 14 GM INHALER (or 12.9 GM) IH SCH ×2 (01:33→19:55)
[2020-01-04] MEDS: PROPRANOLOL HCL 10 MG TABLET PO SCH ×3 (05:58→20:20)
[2020-01-04 06:29] LABS: BASOPHILS % (AUTO) 0.5 % (0.0-2.0); EOSINOPHILS % (AUTO) 2.9 % (0.0-6.0); HEMATOCRIT 24 % (33-45); HEMOGLOBIN 7.3 g/dL (11.5-14.8); LYMPHOCYTES # (AUTO) 0.5 /CMM (0.8-4.8); LYMPHOCYTES % (AUTO) 13.2 % (20.0-44.0); MEAN CORPUSCULAR HGB CONC 31 g/dl (31.0-36.0); MEAN CORPUSCULAR VOLUME 91 fL (82-100); MONOCYTES # (AUTO) 0.3 /CMM (0.1-1.30); MONOCYTES % (AUTO) 8.2 % (2.0-12.0); NEUTROPHILS # (AUTO) 2.7 /CMM (1.8-8.9); NEUTROPHILS % (AUTO) 75.2 % (43.0-81.0); PLATELET COUNT (AUTO) 117 /CMM (150-450); RED BLOOD CELL COUNT(AUTO) 2.64 MIL/uL (4.0-5.2); WHITE BLOOD COUNT (AUTO) 3.5 K/uL (4.3-11.0)
--- NOTE | 2020-01-04 06:45 | NUR ---
RN NOTES NO S/S OF DISTRESS NOTED PATIENT RESTED WELL. BREATHING NORMAL NO SOB NOTED. RESPIRATION EVEN NON LABORED. ALL DUE MEDICATIONS WERE GIVEN PATIENT TOLERATED WELL. IV'S INTACT FLUSHING WELL. KEPT CLEAN AND COMFORTABLE. ALL SAFETY MEASURES IN PLACE,BED IN LOW AND LOCKED POSITION. CALL LIGHT WITHIN REACH. WILL ENDORSE TO AM NURSE FOR HOMER.
[2020-01-04 07:02] LABS: ALANINE AMINOTRANSFERASE 10 U/L (12-78); ALBUMIN 3.3 g/dL (3.4-5.0); ALKALINE PHOSPHATASE 64 U/L (46-116); ASPARTATE AMINOTRANSFERASE 10 U/L (15-37); BILIRUBIN,TOTAL 0.7 mg/dL (0.2-1.0); CALCIUM, SERUM 8.4 mg/dL (8.5-10.1); CARBON DIOXIDE 25 mmol/L (21-32); CHLORIDE 106 mmol/L (98-107); CREATININE 1.7 mg/dL (0.6-1.3); POTASSIUM 5.7 mmol/L (3.5-5.1); SODIUM SERUM 139 mmol/L (136-145); TOTAL PROTEIN, SERUM 6.8 g/dL (6.4-8.2); UREA NITROGEN, BLOOD 31 mg/dL (7-18)
[2020-01-04 07:10] LABS: GLUCOSE 46 mg/dL (74-106)
--- NOTE | 2020-01-04 07:15 | NUR ---
RN OPENING NOTES PATIENT IN BED RESTING. A/OX3, ABLE TO MAKE NEEDS KNOWN, BURUN[place]AN SPEAKING. NOT IN ANY FORM OF DISTRESS. NO SOB. DENIED PAIN OR DISCOMFORT AT THIS TIME. IV ACCESS INTACT AND PATENT. KEPT PATIENT SAFE AND COMFORTABLE. BED IN LOW/LOCKED POSTIION. SIDERAILS UPX2, CALL LIGHT IN REACH. WILL CONTINUE TO MONITOR ACCORDNGLY.
[2020-01-04] MEDS: REPAGLINIDE 0.5 MG TABLET PO SCH ×4 (07:30→17:41)
[2020-01-04] MEDS: FLUTICASONE/VILANTEROL 1 EACH BLST.W.DEV IH SCH (08:33)
[2020-01-04] MEDS: AMLODIPINE BESYLATE 5 MG TABLET PO SCH (08:33)
[2020-01-04] MEDS: METOLAZONE 2.5 MG TABLET PO SCH (08:34)
[2020-01-04] MEDS: FERROUS SULFATE (325 MG) 325 MG/TAB TABLET PO SCH ×2 (08:34→17:37)
[2020-01-04] MEDS: ISOSORBIDE DINITRATE (20MG) 20 MG TABLET PO SCH ×3 (08:35→17:37)
[2020-01-04] MEDS: PANTOPRAZOLE 40 MG TABLET.DR PO SCH (08:36)
[2020-01-04] MEDS: FAMOTIDINE (20 MG) 20 MG TABLET PO SCH ×2 (08:36→20:25)
[2020-01-04] MEDS: BUMETANIDE (1 MG) 1 MG TABLET PO SCH (08:36)
[2020-01-04] MEDS: FOLIC ACID 1 MG TABLET PO SCH (08:36)
[2020-01-04] MEDS: MECLIZINE HCL 25 MG TABLET PO SCH (08:36)
[2020-01-04] MEDS: LEVOTHYROXINE SODIUM 125 MCG TABLET PO SCH (08:37)
[2020-01-04] MEDS ORDERED: SODIUM POLYSTYRENE SULFONATE 15 G/60 ML BOTTLE RC ONE ×2 (09:00→20:00)
--- NOTE | 2020-01-04 12:51 | NUR ---
RN NOTES REPAGLINIDE DOSE HELD DUE TO POOR APPETITE AND LOW BLOOD SUGAR.
[2020-01-04] MEDS ORDERED: SOD FERRIC GLUC 125 MG in IV NS 0.9% 100 ML IV SCH (14:00)
[2020-01-04] MEDS: SOD FERRIC GLUC 125 MG in IV NS 0.9% 100 ML IV SCH (15:07)
[2020-01-04 17:24] LABS: CALCIUM, SERUM 8.2 mg/dL (8.5-10.1); CARBON DIOXIDE 27 mmol/L (21-32); CHLORIDE 105 mmol/L (98-107); CREATININE 1.9 mg/dL (0.6-1.3); GLUCOSE 106 mg/dL (74-106); POTASSIUM 5.5 mmol/L (3.5-5.1); SODIUM SERUM 139 mmol/L (136-145); UREA NITROGEN, BLOOD 32 mg/dL (7-18)
--- NOTE | 2020-01-04 17:44 | NUR ---
RN NOTES REPAGLINIDE DOSE HELD DUE TO POOR APPETITE.
--- NOTE | 2020-01-04 18:53 | NUR ---
RN CLOSING NOTES PATIENT IN STABLE CONDITION. ALL NEEDS ATTENDED AN PROVIDED. ALL DUE MEDS GIVEN ORDERED. DISCHARGE TODAY WAS HELD DUE TO HIGH POTASSIUM LEVELS, DR HERRERA AWARE AND GAVE VERBAL ORDER TO GIVE KAYEXALATE 60G RC ONE TIME TONIGHT AND ANOTHER FOR TOMORROW, READ BACK ORDER VERIFIED. KEPT PATIENT SAFE AND COMFORTABLE. BED IN LOW/LOCKED POSITION, SIDERAILS UPX2, CALL LIGHT IN REACH. WILL ENDORSE ACCORDINGLY.
--- NOTE | 2020-01-04 20:21 | NUR ---
RN NOTE INDERAL NOT ADMINISTERED. BLOOD PRESSURE RECHECKED, 88/40 HR 71. PT DENIES DISCOMFORT, WEAKNESS OR DIZZINESS. WILL MONITOR.
[2020-01-05] VITALS: BP 117/48
[2020-01-05 00:17] VITALS: BP 117/48
[2020-01-05] MEDS: IPRATROPIUM BROMIDE 14 GM INHALER (or 12.9 GM) IH SCH ×3 (01:24→14:15)
[2020-01-05 06:29] LABS: BASOPHILS % (AUTO) 0.5 % (0.0-2.0); EOSINOPHILS % (AUTO) 3.5 % (0.0-6.0); HEMATOCRIT 24 % (33-45); HEMOGLOBIN 7.2 g/dL (11.5-14.8); LYMPHOCYTES # (AUTO) 0.6 /CMM (0.8-4.8); LYMPHOCYTES % (AUTO) 19.6 % (20.0-44.0); MEAN CORPUSCULAR HGB CONC 31 g/dl (31.0-36.0); MEAN CORPUSCULAR VOLUME 91 fL (82-100); MONOCYTES # (AUTO) 0.2 /CMM (0.1-1.30); MONOCYTES % (AUTO) 7.8 % (2.0-12.0); NEUTROPHILS # (AUTO) 2.1 /CMM (1.8-8.9); NEUTROPHILS % (AUTO) 68.6 % (43.0-81.0); PLATELET COUNT (AUTO) 107 /CMM (150-450); RED BLOOD CELL COUNT(AUTO) 2.59 MIL/uL (4.0-5.2); WHITE BLOOD COUNT (AUTO) 3.1 K/uL (4.3-11.0)
[2020-01-05 07:10] LABS: CALCIUM, SERUM 8.3 mg/dL (8.5-10.1); CARBON DIOXIDE 28 mmol/L (21-32); CHLORIDE 105 mmol/L (98-107); CREATININE 2.1 mg/dL (0.6-1.3); GLUCOSE 77 mg/dL (74-106); MAGNESIUM 1.7 mg/dL (1.8-2.4); POTASSIUM 4.9 mmol/L (3.5-5.1); SODIUM SERUM 139 mmol/L (136-145); UREA NITROGEN, BLOOD 33 mg/dL (7-18)
--- NOTE | 2020-01-05 07:36 | NUR ---
FORGING PRESS SETTER UP OPENING NOTE PATIENT IN BED RESTING COMFORTABLY. PATIENT IN NO ACUTE DISTRESS. NO SOB NOTED. PATIENT BREATHING IS EVEN AND UNLABORED. PATIENT ON CARDIAC MONITORING READING SINUS RHYTHM HR 64. PATIENT BED ALARM IS ON. PATIENT SAFETY PRECAUTIONS IN PLACE. PATIENT BED IS LOCKED AND IN LOWEST POSITION. CALL LIGHT WITHIN REACH. WILL CONTINUE TO MONITOR.
[2020-01-05 08:00] VITALS: BP 110/43
[2020-01-05] MEDS ORDERED: SODIUM POLYSTYRENE SULFONATE 15 G/60 ML BOTTLE RC ONE (08:00)
[2020-01-05] MEDS: ISOSORBIDE DINITRATE (20MG) 20 MG TABLET PO SCH ×2 (08:30→12:17)
[2020-01-05] MEDS: AMLODIPINE BESYLATE 5 MG TABLET PO SCH (08:31)
[2020-01-05] MEDS: LEVOTHYROXINE SODIUM 125 MCG TABLET PO SCH (08:38)
[2020-01-05] MEDS: FAMOTIDINE (20 MG) 20 MG TABLET PO SCH (08:38)
[2020-01-05] MEDS: BUMETANIDE (1 MG) 1 MG TABLET PO SCH (08:38)
[2020-01-05] MEDS: FERROUS SULFATE (325 MG) 325 MG/TAB TABLET PO SCH (08:38)
[2020-01-05] MEDS: PANTOPRAZOLE 40 MG TABLET.DR PO SCH (08:38)
[2020-01-05] MEDS: FOLIC ACID 1 MG TABLET PO SCH (08:38)
[2020-01-05] MEDS: METOLAZONE 2.5 MG TABLET PO SCH (08:38)
[2020-01-05] MEDS: MECLIZINE HCL 25 MG TABLET PO SCH (08:38)
[2020-01-05] MEDS: REPAGLINIDE 0.5 MG TABLET PO SCH ×2 (08:42→11:09)
[2020-01-05] MEDS: FLUTICASONE/VILANTEROL 1 EACH BLST.W.DEV IH SCH (08:44)
[2020-01-05] MEDS ORDERED: Magnesium 1GM/D5W 100ML PREMIX PIGGYBACK IV ONE (10:30)
[2020-01-05] MEDS: Magnesium 1GM/D5W 100ML PREMIX 100 ML IV SCH ×3 (11:09→14:00)
[2020-01-05 12:00] VITALS: BP 128/56
[2020-01-05 12:17] VITALS: BP 128/56
[2020-01-05] MEDS: PROPRANOLOL HCL 10 MG TABLET PO SCH (12:17)
--- NOTE | 2020-01-05 15:57 | NUR ---
ROBOT OPERATOR NOTE PATIENT MEDICALLY CLEARED FOR DISCHARGE. PATIENT IN NO ACUTE DISTRESS. NO SOB NOTED. PATIENT BREATHING IS EVEN AND UNLABORED. DC INSTRUCTIONS PROVIDED TO PATIENT AND PATIENTS SON AND GRANDSON. PATIENT AND FAMILY VERBALIZED UNDERSTANDING. PATIENT ID BAND REMOVED. IV REMOVED. PATIENT HAS BELONGINGS WITH HER AND SIGNED BELONGINGS LIST. PATIENT SKIN ASSESSED, NO NEW SKIN BREAKDOWN NOTED. PATIENT KEPT CLEAN, DRY AND COMFORTABLE THROUGHOUT SHIFT. NEEDS AND CONCERNS ADDRESSED. PATIENT WENT BY WHEELCHAIR TO [employer]IENT [employer] CAR TO GO HOME. MD AWARE OF DISCHARGE. Addendum: 01/05/20 at 1610 by DONALD SOLIS RN ROBOT OPERATOR NOTE PATIENT MEDICALLY CLEARED FOR DISCHARGE. PATIENT IN NO ACUTE DISTRESS. NO SOB NOTED. PATIENT BREATHING IS EVEN AND UNLABORED. DC INSTRUCTIONS PROVIDED TO PATIENT AND PATIENTS SON AND GRANDSON. PATIENT AND FAMILY VERBALIZED UNDERSTANDING. PATIENT ID BAND REMOVED. IV REMOVED. PATIENT HAS BELONGINGS WITH HER AND SIGNED BELONGINGS LIST. PATIENT SKIN ASSESSED, NO NEW SKIN BREAKDOWN NOTED. PATIENT KEPT CLEAN, DRY AND COMFORTABLE THROUGHOUT SHIFT. NEEDS AND CONCERNS ADDRESSED. PATIENT WENT BY WHEELCHAIR TO [employer]IENT [employer] TO GO HOME AT 1520. AWARE OF DISCHARGE.
== END 2020-01-05 15:52 | disposition home health service (06) | DRG 432 ==
LOC: ER 18:27 → TELE1 20:54
PROVIDERS: ADMIT Family Medicine; ATTEND Family Medicine
PROC: 0W9G3ZZ Drainage of Peritoneal Cavity, Percutaneous Approach (ICD-10-PCS; principal; 2020-01-03)
DX: K74.60 Unspecified cirrhosis of liver (principal); N17.0 Acute kidney failure with tubular necrosis; I50.22 Chronic systolic (congestive) heart failure; D61.818 Other pancytopenia; I48.20 Chronic atrial fibrillation, unspecified; R18.8 Other ascites; N17.9 Acute kidney failure, unspecified; N25.81 Secondary hyperparathyroidism of renal origin; I13.0 Hypertensive heart and chronic kidney disease with heart failure and stage 1 through stage 4 chronic kidney disease, or unspecified chronic kidney disease; I48.92 Unspecified atrial flutter; E87.5 Hyperkalemia; N18.9 Chronic kidney disease, unspecified; E11.22 Type 2 diabetes mellitus with diabetic chronic kidney disease; E11.42 Type 2 diabetes mellitus with diabetic polyneuropathy; E11.319 Type 2 diabetes mellitus with unspecified diabetic retinopathy without macular edema; E78.5 Hyperlipidemia, unspecified; F09 Unspecified mental disorder due to known physiological condition; G89.29 Other chronic pain; M19.90 Unspecified osteoarthritis, unspecified site; I25.2 Old myocardial infarction; I27.20 Pulmonary hypertension, unspecified; M10.9 Gout, unspecified; Z96.651 Presence of right artificial knee joint; Z98.890 Other specified postprocedural states; Z90.49 Acquired absence of other specified parts of digestive tract; Z88.1 Allergy status to other antibiotic agents; Z79.51 Long term (current) use of inhaled steroids; Z79.899 Other long term (current) drug therapy; F03.90 Unspecified dementia, unspecified severity, without behavioral disturbance, psychotic disturbance, mood disturbance, and anxiety; E03.9 Hypothyroidism, unspecified; F32.9 Major depressive disorder, single episode, unspecified; M81.0 Age-related osteoporosis without current pathological fracture; Z95.1 Presence of aortocoronary bypass graft; Z95.0 Presence of cardiac pacemaker; Z91.81 History of falling; Z87.11 Personal history of peptic ulcer disease; Z86.73 Personal history of transient ischemic attack (TIA), and cerebral infarction without residual deficits; Z83.3 Family history of diabetes mellitus; Z82.49 Family history of ischemic heart disease and other diseases of the circulatory system; I07.1 Rheumatic tricuspid insufficiency; M79.2 Neuralgia and neuritis, unspecified; M26.609 Unspecified temporomandibular joint disorder, unspecified side; K21.9 Gastro-esophageal reflux disease without esophagitis; K59.00 Constipation, unspecified; N97.9 Female infertility, unspecified; D50.9 Iron deficiency anemia, unspecified; D51.9 Vitamin B12 deficiency anemia, unspecified; F43.10 Post-traumatic stress disorder, unspecified; F41.9 Anxiety disorder, unspecified; G47.9 Sleep disorder, unspecified; R41.3 Other amnesia; I44.0 Atrioventricular block, first degree; K42.9 Umbilical hernia without obstruction or gangrene; L89.159 Pressure ulcer of sacral region, unspecified stage; H16.429 Pannus (corneal), unspecified eye; I70.0 Atherosclerosis of aorta; N28.1 Cyst of kidney, acquired; K57.30 Diverticulosis of large intestine without perforation or abscess without bleeding; M79.7 Fibromyalgia
CPT/HCPCS: 36415; 36600; 71045-TC; 76942-TC; 80048-TC; 80053-TC; 81000-TC; 82550-TC; 82728-TC; 82962-TC; 83540-TC; 83605-TC; 83615-TC; 83735-TC; 83880; 84100-TC; 84484-TC; 85025-TC; 85378-TC; 85385-TC; 85730-TC; 86140-TC; 87040-TC; 87081-TC; 87086-TC; 97116-TC; 97530-TC; A4216; G0378; J1815; J1940; J2916; J3475; J3490; J7030; J8597; P9047; U0003-CS

== ENCOUNTER 2020-02-09 17:58 | Inpatient (IN) | payer MEDICARE, OTHER ==
[~2020-02-09] VITALS: Ht 152.4 cm; Wt 80.3 kg
--- NOTE | 2020-02-09 18:00 | NUR ---
PT BIBA RA 102 From Home Abdominal distention/swelling hard to breathe" PT IS AAOX3 MEXICAN SPEAKING ONLY, NOTED DIFFICULTY BREATHING, HOOKED TO DIRECTOR OF CLAIMS, KEPT RESTED AND COMFORTABLE. WILL CONTINUE TO MONITOR.
--- NOTE | 2020-02-09 18:20 | NUR ---
IV LINE ESTABLISHED BLOOD DRAWN AND SENT TO LAB.
--- NOTE | 2020-02-09 18:25 | NUR ---
AT BEDSIDE FOR EVAL.
[2020-02-09 18:41] LABS: BASOPHILS % (AUTO) 0.4 % (0.0-2.0); EOSINOPHILS % (AUTO) 3.3 % (0.0-6.0); LYMPHOCYTES # (AUTO) 0.7 /CMM (0.8-4.8); LYMPHOCYTES % (AUTO) 14.8 % (20.0-44.0); MEAN CORPUSCULAR HGB CONC 30 g/dl (31.0-36.0); MONOCYTES # (AUTO) 0.3 /CMM (0.1-1.30); MONOCYTES % (AUTO) 7.8 % (2.0-12.0); NEUTROPHILS # (AUTO) 3.3 /CMM (1.8-8.9); NEUTROPHILS % (AUTO) 73.7 % (43.0-81.0); PLATELET COUNT (AUTO) 119 /CMM (150-450); WHITE BLOOD COUNT (AUTO) 4.4 K/uL (4.3-11.0)
[2020-02-09] MEDS ORDERED: PANTOPRAZOLE 40 MG VIAL ONE (18:42)
[2020-02-09] MEDS ORDERED: ALBUMIN 25% 50 ML IV ONE ×2 (18:47→18:55)
[2020-02-09 18:54] LABS: HEMATOCRIT 28 % (33-45); HEMOGLOBIN 8.2 g/dL (11.5-14.8); MEAN CORPUSCULAR VOLUME 97 fL (82-100); RED BLOOD CELL COUNT(AUTO) 2.88 MIL/uL (4.0-5.2)
--- NOTE | 2020-02-09 18:56 | NUR ---
URINAL GIVEN UNABLE TO PROVIDE URINE SPECIMEN THIS TIME. AWARE.
[2020-02-09] MEDS ORDERED: ALBUMIN 25% 25 GM in PREMIX 1 EA IV SCH (19:00)
[2020-02-09] MEDS ORDERED: PANTOPRAZOLE 40 MG VIAL IV ONE (19:00)
[2020-02-09 19:12] LABS: ALANINE AMINOTRANSFERASE 9 U/L (12-78); ALBUMIN 2.9 g/dL (3.4-5.0); ALKALINE PHOSPHATASE 128 U/L (46-116); ASPARTATE AMINOTRANSFERASE 14 U/L (15-37); BILIRUBIN,DIRECT 0.3 mg/dL (0.0-0.2); BILIRUBIN,TOTAL 0.5 mg/dL (0.2-1.0); CALCIUM, SERUM 8.8 mg/dL (8.5-10.1); CARBON DIOXIDE 20 mmol/L (21-32); CHLORIDE 110 mmol/L (98-107); CREATININE 1.5 mg/dL (0.6-1.3); GLUCOSE 193 mg/dL (74-106); LIPASE 246 U/L (73-393); SODIUM SERUM 136 mmol/L (136-145); TOTAL PROTEIN, SERUM 7.7 g/dL (6.4-8.2); UREA NITROGEN, BLOOD 36 mg/dL (7-18)
--- NOTE | 2020-02-09 19:17 | NUR ---
PT SWABBED FOR COVID. SENT TO LAB .
--- NOTE | 2020-02-09 19:17 | NUR ---
EMT AT BEDSIDE FOR EKG
--- NOTE | 2020-02-09 19:19 | NUR ---
CALLED RT FOR BREATHING TREATMENT
[2020-02-09] MEDS ORDERED: CALCIUM CHLORIDE 1,000 MG/10 ML DISP.SYRIN IV ONE (19:30)
[2020-02-09] MEDS ORDERED: DEXTROSE 50%-WATER 50 ML DISP.SYRIN IVP ONE (19:30)
[2020-02-09] MEDS ORDERED: ALBUTEROL FS 2.5 MG/3 ML VIAL.NEB CONTNEB ONE (19:30)
[2020-02-09] MEDS ORDERED: INSULIN REGULAR, HUMAN 100 UNIT/ML 10 ML VIAL IV ONE (19:30)
[2020-02-09 19:32] LABS: B-TYPE NATRIURETIC PEPTIDE 16847 PG/ML (0-125)
[2020-02-09] MEDS ORDERED: CALCIUM CHLORIDE 1,000 MG/10 ML DISP.SYRIN ONE (19:32)
[2020-02-09] MEDS ORDERED: INSULIN REGULAR, HUMAN 100 UNIT/ML 10 ML VIAL ONE (19:32)
[2020-02-09] MEDS ORDERED: ALBUTEROL FS 2.5 MG/3 ML VIAL.NEB ONE (19:41)
[2020-02-09 19:47] LABS: SERUM AMMONIA 44 umol/L (11-32)
--- NOTE | 2020-02-09 19:55 | NUR ---
PT GIVEN DEXTROSE, INSULIN, AND CALCIUM CHLORIDE. RT AT BEDSIDE FOR BREATHING TREATMENT.
[2020-02-09] MEDS ORDERED: KETOROLAC TROMETHAMINE 15 MG/ML VIAL ONE (20:07)
--- NOTE | 2020-02-09 20:18 | NUR ---
PT C/O PAIN, MD AWARE. TORADOL 15 IVP GIVEN.
[2020-02-09] MEDS ORDERED: KETOROLAC TROMETHAMINE INJ 30 MG/ML VIAL IV ONE (20:30)
--- NOTE | 2020-02-09 20:30 | NUR ---
LAB CALLED REGARDING COVID NEGATIVE RESULT.
[2020-02-09] MEDS ORDERED: SODIUM POLYSTYRENE SULFONATE 15 G/60 ML BOTTLE ONE (20:31)
[2020-02-09] MEDS: SODIUM POLYSTYRENE SULFONATE 15 G/60 ML BOTTLE PO ONE ×2 (20:32→20:54)
--- NOTE | 2020-02-09 20:33 | NUR ---
DR. HERRERA PAGED PER ER ORDER.
--- NOTE | 2020-02-09 20:43 | NUR ---
OFFICIAL COURT INTERPRETER AT BEDSIDE FOR REPEAT POTASSIUM
[2020-02-09 20:52] LABS: CALCIUM, SERUM 9.8 mg/dL (8.5-10.1); CARBON DIOXIDE 16 mmol/L (21-32); CHLORIDE 111 mmol/L (98-107); CREATININE 1.5 mg/dL (0.6-1.3); GLUCOSE 150 mg/dL (74-106); SODIUM SERUM 138 mmol/L (136-145); UREA NITROGEN, BLOOD 35 mg/dL (7-18)
[2020-02-09 20:55] LABS: POTASSIUM 6.2 mmol/L (3.5-5.1)
--- NOTE | 2020-02-09 20:55 | NUR ---
POTASSIUM 6.2 MD AWARE.
--- NOTE | 2020-02-09 21:18 | NUR ---
REPORT GIVEN TO WOODROW BURK FOR HOMER
--- NOTE | 2020-02-09 21:36 | NUR ---
PT TRANSFERED PER ACLS PROTOCOL
[2020-02-09 22:00] VITALS: BP 131/65
--- NOTE | 2020-02-09 22:10 | NUR ---
ACQUISITION ADVISOR NOTES MD PAGE,LEAVE MESSAGE ON ANSWERING MACHINE,AWAITING TO CALL BACK.
--- NOTE | 2020-02-09 22:30 | NUR ---
GROUT MACHINE OPERATORDIRECTOR OF IT OPERATIONS NOTES RECEIVED FROM ER PER LINDA THIS 89 YO FEMALE,ALERT,ORIENTED X3,BREATHING REGULAR,NOT IN ANY FORM OF DISTRESS,CHIEF COMPLAINTS OF SLIGHT SOB DUE TO ABDOMINAL DISTENTION,PREVIOUSLY ADMITTED FOR ASCITES.WITH PACEMAKER LEFT UPPER CHEST,V-PACING 95 ON TELE MONITOR.ABDOMEN DISTENDED BUT SOFT,DENIES PAIN.WITH POTASSIUM LEVEL OF 6.2,REFUSED KAYEXALATE IN ER BUT GIVEN INSULIN.VITAL SIGNS WITH IN NORMAL LIMITS.SALINE LOCK RIGHT AC INTACT AND PATENT.CALL LIGHT IN REACH,NEEDS ANTICIPATED.
--- NOTE | 2020-02-09 23:15 | NUR ---
DIE STAMPER NOTES DR HERRERA CALLED WITH NEW ORDERS NOTED AND CARRIED OUT.
[2020-02-09] MEDS ORDERED: SODIUM POLYSTYRENE SULFONATE 15 G/60 ML BOTTLE RC ONE (23:30)
[2020-02-10] VITALS: BP 118/52
--- NOTE | 2020-02-10 01:00 | NUR ---
RADIATOR TESTER NOTES DVT SCORE OF 3,SCD PUMPS APPLIED TO BOTH LOWER LEGS. NO ORDER FOR DVT PROPHYLAXIS BUT WILL FOLLOW UP WITH DR HERRERA THIS MORNING
[2020-02-10] MEDS ORDERED: SODIUM POLYSTYRENE SULFONATE 15 G/60 ML BOTTLE ONE ×3 (01:44→01:46)
[2020-02-10] MEDS ORDERED: MISOPROSTOL 100 MCG TABLET ONE (01:50)
[2020-02-10] MEDS: MISOPROSTOL 100 MCG TABLET PO SCH ×3 (01:53→18:05)
--- NOTE | 2020-02-10 01:53 | NUR ---
CHARGING CRANE OPERATOR NOTES STARTED ON CYTOTEC 100MG PO ORDERED.
--- NOTE | 2020-02-10 02:07 | NUR ---
GM/SVP GLOBAL PUBLISHER BUSINESS NOTES KAYEXALATE ENEMA 60GM ADMINISTERED ORDERED FOR POTASSIUM LEVEL OF 6.2,WILL MONITOR FOR BOWEL MOVEMENT.
[2020-02-10 04:00] VITALS: BP 119/80
--- NOTE | 2020-02-10 06:27 | NUR ---
INTEGRATION DEVELOPER NOTES ON BED A/O X3,HAD X1 BM POST KAYEXALATE WAS GIVEN,MODERATE IN AMOUNT.SALINE LOCK REMAINS PATENT.FOR ULTRASOUND GUIDED PARACENTESIS TODAY.DR HERRERA TO SEE PATIENT TODAY.ABDOMEN REMAINS DISTENDED BUT SOFT.NO EPISODE OF SOB,HOB ELEVATED.WILL ENDORSE TO DAY NURSE FOR HOMER.
[2020-02-10 06:56] LABS: BASOPHILS % (AUTO) 0.5 % (0.0-2.0); EOSINOPHILS % (AUTO) 2.8 % (0.0-6.0); HEMATOCRIT 31 % (33-45); HEMOGLOBIN 9.1 g/dL (11.5-14.8); LYMPHOCYTES # (AUTO) 0.6 /CMM (0.8-4.8); LYMPHOCYTES % (AUTO) 13.6 % (20.0-44.0); MEAN CORPUSCULAR HGB CONC 29 g/dl (31.0-36.0); MEAN CORPUSCULAR VOLUME 99 fL (82-100); MONOCYTES # (AUTO) 0.4 /CMM (0.1-1.30); MONOCYTES % (AUTO) 7.9 % (2.0-12.0); NEUTROPHILS # (AUTO) 3.4 /CMM (1.8-8.9); NEUTROPHILS % (AUTO) 75.2 % (43.0-81.0); PLATELET COUNT (AUTO) 124 /CMM (150-450); RED BLOOD CELL COUNT(AUTO) 3.13 MIL/uL (4.0-5.2); WHITE BLOOD COUNT (AUTO) 4.5 K/uL (4.3-11.0)
[2020-02-10 07:10] LABS: IRON, SERUM 35 ug/dl (50-175); TOTAL IRON BINDING CAPACITY 229 ug/dl (250-450)
[2020-02-10 07:20] LABS: THYROID STIMULATING HORMONE 0.885 uIU/mL (0.358-3.74)
--- NOTE | 2020-02-10 07:32 | NUR ---
RN NOTE THE PATIENT IS RECEIVED IN BED. THE PATIENT IS ALERT AND ORIENTED X4. DENIES CLAROS. IN ROOM AIR AND DENIES SOB. RESPIRATION REGULAR AND UNLABORED. PATIENT IN NO APPARENT DISTRESS. RAC G 20 PATENT AND SALINE LOCKED. EXTERNAL TELE BOX READING IS V-PACING 96. BED LOW AND MITZI.D SIDE RAILS UP X3. CALL LIGHT WITHIN REACH. WILL CONTINUE TO MONITOR.
[2020-02-10 08:00] VITALS: BP 141/66
[2020-02-10] MEDS: PANTOPRAZOLE 40 MG TABLET.DR PO SCH (09:01)
--- NOTE | 2020-02-10 09:12 | NUR ---
WOUND CARE CONSULT: PT PRESENTS WITH RASHES TO ABDOMINAL/GROIN FOLDS, PRESENT ON ADMISSION. PT IS INCONITNENT. ABDOMEN IS VERY LARGE. RECOMMENDATIONS MADE FOR SKIN CARE AND PROTECTION. DISCUSSED WITH NURSING STAFF. PT IS ON KALLIE ISOFLEX LOW AIRLOSS BED. WILL SEE PRN. IN AGREEMENT WITH PLAN OF CARE.
[2020-02-10 09:24] LABS: ALANINE AMINOTRANSFERASE 10 U/L (12-78); ALBUMIN 2.8 g/dL (3.4-5.0); ALKALINE PHOSPHATASE 94 U/L (46-116); ASPARTATE AMINOTRANSFERASE 11 U/L (15-37); BILIRUBIN,TOTAL 0.7 mg/dL (0.2-1.0); CARBON DIOXIDE 16 mmol/L (21-32); CHLORIDE 109 mmol/L (98-107); CREATININE 1.6 mg/dL (0.6-1.3); GLUCOSE 191 mg/dL (74-106); SODIUM SERUM 135 mmol/L (136-145); UREA NITROGEN, BLOOD 34 mg/dL (7-18)
[2020-02-10] MEDS ORDERED: Z GUARD REMEDY 2 OZ OINT TP PRN (09:30)
[2020-02-10] MEDS: IV NS 0.9% 1,000 ML IV PRN ×2 (09:38→23:03)
[2020-02-10 09:52] LABS: POTASSIUM 6.9 mmol/L (3.5-5.1)
--- NOTE | 2020-02-10 09:58 | NUR ---
MS/RN NOTE DR HERRERA IS MADE AWARE OF POTASSIUM LEVEL OF 6.9. RECEIVED AN ORDER FOR KAYEXELATE 60 G RECTALLY SCHEDULED AT 1100 DUE TO PATIENT IS HAVING PARACENTESIS AT THIS TIME. ALSO, RECEIVED ORDERS OF BODY FLUID ANALYSIS AND BODY FLUID WITH GRAM STAIN FOR PARACENTHESIS FLUID. THE ORDERS ARE READ BACK, VERIFIED. NOTED AND CARRIED OUT.
--- NOTE | 2020-02-10 10:03 | NUR ---
MS/RN NOTE RECEIVED ORDER FROM DR HERRERA FOR NEPHRO CONSULT WITH DR CORREA. THE ORDER NOTED AND CARRIED OUT.
[2020-02-10] MEDS: ALBUMIN 25% 25 GM in PREMIX 1 EA IV SCH ×2 (10:06→18:04)
--- NOTE | 2020-02-10 10:19 | NUR ---
MS/RN NOTE PER DR HERRERA ALBUMIN 25% 25GM TO BE GIVEN Q8HR X3 DAYS. NOTED AND CARRIED OUT.
[2020-02-10] MEDS ORDERED: SODIUM POLYSTYRENE SULFONATE 15 G/60 ML BOTTLE RC ONE ×2 (11:00→20:00)
--- NOTE | 2020-02-10 11:59 | NUR ---
MS/RN NOTE THE PATIENT HAD PARACENTESIS TODAY WITH 5350 ML OUTPUT.
[2020-02-10] MEDS: Z GUARD REMEDY 2 OZ OINT TP SCH (12:02)
--- NOTE | 2020-02-10 12:57 | NUR ---
MS/RN NOTE KAYEXELATE GIVEN. PER DR HERRERA NO NEED TO CHECK THE POTASSIUM LEVEL AGAIN TODAY. PER MD TO CHECK BMP TOMORROW AM. NOTED AND CARRIED OUT.
[2020-02-10] MEDS: FERRLICET 125MG in 100 ML NS IVPB IV SCH (13:57)
[2020-02-10 16:01] VITALS: BP 110/51
[2020-02-10] MEDS ORDERED: FUROSEMIDE 20 MG/2 ML VIAL IV ONE (18:00)
[2020-02-10 18:02] LABS: CALCIUM, SERUM 8.8 mg/dL (8.5-10.1); CARBON DIOXIDE 14 mmol/L (21-32); CHLORIDE 110 mmol/L (98-107); CREATININE 1.7 mg/dL (0.6-1.3); GLUCOSE 187 mg/dL (74-106); SODIUM SERUM 136 mmol/L (136-145); UREA NITROGEN, BLOOD 35 mg/dL (7-18)
[2020-02-10] MEDS: CLOTRIMAZOLE 1% 15 GM TUBE TP SCH (18:04)
[2020-02-10] MEDS: CLOTRIMAZOLE/BETAMETASONE DIPROPIONATE 15 GM TUBE TP SCH (18:04)
--- NOTE | 2020-02-10 18:27 | NUR ---
MS/RN NOTE RECEIVED CALL FROM LAB REPORTING POTASSIUM LEVEL OF 7.0. DR CORREA IS MADE AWARE OF POTASSIUM LEVEL AND RECENT EKG RESULT. WAITING FOR ORDERS. Addendum: 02/10/20 at 1916 by PORTIA CRAIN RN /RN NOTE RECEIVED AN ORDER OF POTASSIUM LEVEL CHECK AT 2130 AND KAYEXALATE 60 G RECTALY X1. NOTED AND CARRIED OUT. PREVENTIVE MEDICINE PHYSICIAN WILL BE ENDORSED.
--- NOTE | 2020-02-10 19:05 | NUR ---
MS RN NOTES RECEIVED PT IN BED AWAKE AND ABLE TO MAKE NEEDS KNOWN. PT A/O X3 GUAMANIAN SPEAKING. RESPIRATIONS EVEN AND UNLABORED WITH NO S/S OF ACUTE DISTRESS OR SOB NOTED. NO COMPLAINTS OF PAIN AT THIS TIME. PT NOTED WITH RAC #20G PATENT AND INTACT INFUSING NS @100CC/HR. SAFETY MEASURES IN PLACE WITH BED IN LOWEST LOCKED POSITION WITH SIDE RAILS UP X2. CALL LIGHT WITHIN REACH. WILL CONTINUE TO MONITOR.
--- NOTE | 2020-02-10 19:11 | NUR ---
MS/RN NOTE PER DR HERRERA NEW ORDER OF LEVOTHYROXINE SODIUM 125 MCG PO QD. NOTED AND CARRIED OUT.
[2020-02-10 20:00] VITALS: BP 159/61
[2020-02-10] MEDS ORDERED: SODIUM POLYSTYRENE SULFONATE 15 G/60 ML BOTTLE PO ONE (20:00)
--- NOTE | 2020-02-10 22:00 | NUR ---
FUR GRADER NOTES PT TRANSFERRED TO TELE. TELE MONITOR ATTACHED TO PT. WILL CONTINUE TO MONITOR.
[2020-02-11] VITALS: BP 109/52
[2020-02-11] MEDS: ALBUMIN 25% 25 GM in PREMIX 1 EA IV SCH ×3 (01:24→16:23)
[2020-02-11 04:08] VITALS: BP 129/64
--- NOTE | 2020-02-11 07:36 | NUR ---
TELE/RN OPENING NOTES RECEIVED PATIENT SLEEPING ON BED, EASILY AROUSABLE WITH NAME AND LIGHT TOUCH, ALERT AND ORIENTED X 2-3 BULGARIAN SPEAKING. DENIES PAIN AT THIS TIME. PATIENT IN NO APPARENT RESPIRATORY DISTRESS NOTED. PATIENT ON TELE MONITOR A PACING 61 BPM. WILL CONTINUE TO MONITOR.
--- NOTE | 2020-02-11 07:42 | NUR ---
MS RN NOTES PT IN BED AWAKE AND ABLE TO MAKE NEEDS KNOWN. PT A/O X3 GREEK SPEAKING. RESPIRATIONS EVEN AND UNLABORED WITH NO S/S OF ACUTE DISTRESS OR SOB NOTED THROUGHOUT SHIFT. NO COMPLAINTS OF PAIN AT THIS TIME. PT NOTED WITH RAC #20G PATENT AND INTACT INFUSING NS @100CC/HR. PT KEPT CLEAN, DRY, AND COMFORTABLE. SAFETY MEASURES IN PLACE WITH BED IN LOWEST LOCKED POSITION WITH SIDE RAILS UP X2. CALL LIGHT WITHIN REACH. WILL ENDORSE TO ONCOMING NURSE FOR HOMER.
[2020-02-11 08:00] VITALS: BP 138/55
[2020-02-11] MEDS: LEVOTHYROXINE SODIUM 125 MCG TABLET PO SCH (08:00)
[2020-02-11 08:23] LABS: BASOPHILS % (AUTO) 0.3 % (0.0-2.0); EOSINOPHILS % (AUTO) 2.4 % (0.0-6.0); HEMATOCRIT 26 % (33-45); HEMOGLOBIN 7.3 g/dL (11.5-14.8); LYMPHOCYTES # (AUTO) 0.4 /CMM (0.8-4.8); LYMPHOCYTES % (AUTO) 13.5 % (20.0-44.0); MEAN CORPUSCULAR HGB CONC 28 g/dl (31.0-36.0); MEAN CORPUSCULAR VOLUME 100 fL (82-100); MONOCYTES # (AUTO) 0.2 /CMM (0.1-1.30); MONOCYTES % (AUTO) 7.3 % (2.0-12.0); NEUTROPHILS % (AUTO) 76.5 % (43.0-81.0); PLATELET COUNT (AUTO) 88 /CMM (150-450); RED BLOOD CELL COUNT(AUTO) 2.57 MIL/uL (4.0-5.2); WHITE BLOOD COUNT (AUTO) 2.6 K/uL (4.3-11.0)
[2020-02-11 08:39] LABS: CREATINE KINASE, TOTAL 17 U/L (26-192)
[2020-02-11 08:40] LABS: ALANINE AMINOTRANSFERASE 8 U/L (12-78); ALBUMIN 3.4 g/dL (3.4-5.0); ALKALINE PHOSPHATASE 81 U/L (46-116); ASPARTATE AMINOTRANSFERASE 10 U/L (15-37); BILIRUBIN,TOTAL 0.6 mg/dL (0.2-1.0); CALCIUM, SERUM 8.4 mg/dL (8.5-10.1); CARBON DIOXIDE 19 mmol/L (21-32); CHLORIDE 111 mmol/L (98-107); CREATININE 1.5 mg/dL (0.6-1.3); GLUCOSE 130 mg/dL (74-106); MAGNESIUM 1.8 mg/dL (1.8-2.4); PHOSPHORUS 3.9 mg/dL (2.5-4.9); POTASSIUM 5.6 mmol/L (3.5-5.1); SODIUM SERUM 139 mmol/L (136-145); TOTAL PROTEIN, SERUM 6.7 g/dL (6.4-8.2); UREA NITROGEN, BLOOD 33 mg/dL (7-18)
[2020-02-11] MEDS: MISOPROSTOL 100 MCG TABLET PO SCH ×2 (08:54→16:23)
[2020-02-11] MEDS: CLOTRIMAZOLE 1% 15 GM TUBE TP SCH ×2 (08:55→16:23)
[2020-02-11] MEDS: CLOTRIMAZOLE/BETAMETASONE DIPROPIONATE 15 GM TUBE TP SCH ×2 (08:55→16:23)
[2020-02-11] MEDS: Z GUARD REMEDY 2 OZ OINT TP SCH (08:55)
[2020-02-11] MEDS: PANTOPRAZOLE 40 MG TABLET.DR PO SCH (08:55)
[2020-02-11] MEDS ORDERED: LACTULOSE 10 G/15 ML UDC (PYXIS) PO SCH (09:53)
[2020-02-11] MEDS: IV NS 0.9% 1,000 ML IV PRN ×2 (09:57→22:30)
[2020-02-11] MEDS ORDERED: LACTULOSE 10 G/15 ML UDC (PYXIS) PO PRN (10:00)
--- NOTE | 2020-02-11 12:13 | NUR ---
MS/RN NOTES PATIENT REFUSED LACTULOSE 20G/15ML P.O. EXPLAINED THE RISK AND BENEFITS PATIENT STILL REFUSING MD IS AWARE. WILL CONTINUE TO MONITOR.
--- NOTE | 2020-02-11 12:19 | NUR ---
MS/RN NOTES DR. HERRERA ORDER TO DISCONTINUE LACTULOSE 20 MG/30ML ORAL, NOTED AND CARRIED OUT.
[2020-02-11 14:10] LABS: BAND % (MANUAL) 1 % (0.0-5.0); EOSINOPHILS % (MANUAL) 3 % (0-4); LYMPHOCYTES % (MANUAL) 17 % (16-48); MONOCYTES % (MANUAL) 10 % (0-11.0); NEUTROPHILS % (MANUAL) 69 (42-76)
[2020-02-11] MEDS: FERRLICET 125MG in 100 ML NS IVPB IV SCH (14:33)
[2020-02-11 16:00] VITALS: BP 127/56
--- NOTE | 2020-02-11 18:54 | NUR ---
MS/RN CLOSING NOTES PATIENT IS ON BED, ALERT AND ORIENTED X 2-3. PATIENT IN NO APPARENT RESPIRATORY DISTRESS NOTED. DENIES PAIN AT THIS TIME. IV ACCESS AT RIGHT WRIST # 24 G WITH IV FLUID OF NS 1L AT 100 ML/HR ON AND INFUSING WELL. SEEN AND EXAMINED BY MD WITH ORDERS MADE AND CARRIED OUT. ALL DUE MEDICATION WAS GIVEN. CHECKED AND TURNED PATIENT EVERY 2 HOURS. SAFETY PRECAUTION IN PLACED. BED IN LOWEST POSITION, SIDE RAILS UP X2 AND LOCKED. CALL LIGHT WITHIN REACH. WILL ENDORSED TO CABLE MAINTAINER FOR HOMER.
[2020-02-11 20:00] VITALS: BP 168/67
[2020-02-11 20:58] LABS: APPEARANCE,URINE SL CLOUDY (CLEAR); BILIRUBIN,URINE NEGATIVE (NEGATIVE); BLOOD, URINE SMALL Ery/uL (NEGATIVE); COLOR,URINE YELLOW (YELLOW); KETONES,URINE NEGATIVE (NEGATIVE); LEUKOCYTE ESTERASE ,URINE MODERATE (NEGATIVE); NITRITE, URINE NEGATIVE (NEGATIVE); PH,URINE 5.5 (5.0-8.0); PROTEIN,URINE 100 mg/dl (NEGATIVE); UGLUCOSE NEGATIVE (NEGATIVE); UROBILINOGEN,URINE 0.2 EU/dL (0.2)
[2020-02-11 21:00] LABS: CREATININE, URINE 61.3 MG/DL (30.0-125.0); URINE TOTAL PROTEIN 93.4 mg/dL (0-11.9)
[2020-02-11 21:07] LABS: BACTERIA,URINE 2+ /HPF (None Seen); WBC,URINE TOO NUMEROUS TO COUN /HPF (0-3)
[2020-02-11 21:08] LABS: SQUAMOUS EPITHELIAL CELL,UR Moderate /HPF (None Seen)
[2020-02-11 21:18] LABS: EOSINOPHIL,URINE None Seen
--- NOTE | 2020-02-11 22:00 | NUR ---
MS RN OPENING NOTES RECEIVED PATIENT IN BED, AWAKE, A/0 X2-3, MONEGASQUE SPEAKING, BREATHING AT ROOM AIR, UNLABORED BREATHING, NO SIGNS OF RESPIRATORY DISTRESS, RIGHT WRIST #24G NS @ 100ML/HR, SIDE RAILS UP.
--- NOTE | 2020-02-11 22:15 | NUR ---
MS TELE NOTES PATIENT'S BP- 138/58, HR- 73.
[2020-02-12] MEDS: ALBUMIN 25% 25 GM in PREMIX 1 EA IV SCH ×2 (01:06→23:28)
--- NOTE | 2020-02-12 06:34 | NUR ---
MS RN CLOSING NOTES ENDORSED PATIENT IN BED, AWAKE, A/0 X2-3, MICRONESIAN SPEAKING, BREATHING AT ROOM AIR, UNLABORED BREATHING, NO SIGNS OF RESPIRATORY DISTRESS, RIGHT WRIST #24G NS @ 100ML/HR INFUSING WELL, NO REDNESS OR INFILTRATION NOTED, DUE MEDS GIVEN, NO COMPLAINTS OF PAIN, SIDE RAILS UP FOR SAFETY.
[2020-02-12 06:36] LABS: BASOPHILS % (AUTO) 0.3 % (0.0-2.0); EOSINOPHILS % (AUTO) 2.2 % (0.0-6.0); HEMATOCRIT 24 % (33-45); HEMOGLOBIN 7.1 g/dL (11.5-14.8); LYMPHOCYTES # (AUTO) 0.4 /CMM (0.8-4.8); LYMPHOCYTES % (AUTO) 13.8 % (20.0-44.0); MEAN CORPUSCULAR HGB CONC 29 g/dl (31.0-36.0); MEAN CORPUSCULAR VOLUME 98 fL (82-100); MONOCYTES # (AUTO) 0.2 /CMM (0.1-1.30); MONOCYTES % (AUTO) 7.4 % (2.0-12.0); NEUTROPHILS # (AUTO) 2.2 /CMM (1.8-8.9); NEUTROPHILS % (AUTO) 76.3 % (43.0-81.0); PLATELET COUNT (AUTO) 83 /CMM (150-450); WHITE BLOOD COUNT (AUTO) 2.8 K/uL (4.3-11.0)
[2020-02-12 06:51] LABS: ALANINE AMINOTRANSFERASE 6 U/L (12-78); ALBUMIN 3.6 g/dL (3.4-5.0); ALKALINE PHOSPHATASE 68 U/L (46-116); ASPARTATE AMINOTRANSFERASE 6 U/L (15-37); BILIRUBIN,TOTAL 0.5 mg/dL (0.2-1.0); CALCIUM, SERUM 8.4 mg/dL (8.5-10.1); CARBON DIOXIDE 18 mmol/L (21-32); CHLORIDE 114 mmol/L (98-107); CREATININE 1.5 mg/dL (0.6-1.3); GLUCOSE 161 mg/dL (74-106); POTASSIUM 5.4 mmol/L (3.5-5.1); SODIUM SERUM 143 mmol/L (136-145); TOTAL PROTEIN, SERUM 6.4 g/dL (6.4-8.2); UREA NITROGEN, BLOOD 32 mg/dL (7-18)
--- NOTE | 2020-02-12 07:39 | NUR ---
MS/RN OPENING NOTES RECEIVED PATIENT SLEEPING BUT EASILY AROUSABLE BY NAME AND LIGHT TOUCH. PATIENT DENIES PAIN AT THIS TIME. PATIENT IN NO APPARENT RESPIRATORY DISTRESS NOTED. WILL CONTINUE TO MONITOR.
[2020-02-12] MEDS: LEVOTHYROXINE SODIUM 125 MCG TABLET PO SCH (07:41)
[2020-02-12 08:00] VITALS: BP 141/57
[2020-02-12] MEDS: PANTOPRAZOLE 40 MG TABLET.DR PO SCH (08:56)
[2020-02-12] MEDS: CLOTRIMAZOLE 1% 15 GM TUBE TP SCH ×2 (08:56→16:23)
[2020-02-12] MEDS: MISOPROSTOL 100 MCG TABLET PO SCH ×2 (08:56→16:23)
[2020-02-12 08:57] LABS: PTH, INTACT 62 pg/mL (15-65)
[2020-02-12] MEDS: CLOTRIMAZOLE/BETAMETASONE DIPROPIONATE 15 GM TUBE TP SCH ×2 (08:57→16:23)
[2020-02-12] MEDS: Z GUARD REMEDY 2 OZ OINT TP SCH (08:57)
[2020-02-12] MEDS ORDERED: FUROSEMIDE 20 MG/2 ML VIAL IV ONE (08:58)
[2020-02-12] MEDS: IV NS 0.9% 1,000 ML IV PRN ×2 (09:01→21:20)
[2020-02-12 09:31] LABS: BAND % (MANUAL) 1 % (0.0-5.0); EOSINOPHILS % (MANUAL) 3 % (0-4); LYMPHOCYTES % (MANUAL) 13 % (16-48); MONOCYTES % (MANUAL) 7 % (0-11.0); NEUTROPHILS % (MANUAL) 76 (42-76)
[2020-02-12 12:26] LABS: ABG OXYGEN SATURATION 95.1 % (92.0-98.5); ABG PCO2 33.8 mmHg (35.0-45.0); ABG PH 7.265 (7.350-7.450); ABG PO2 81.5 mmHg (75.0-100.0); AaDO2 27.8 mmHg; MetHb 0.1 % (0.0-1.5); O2Hb 94.1 % (94.0-97.0); SITE, ABG Right Brachial; VENT MODE, BG room air
--- NOTE | 2020-02-12 12:26 | NUR ---
MS/RN NOTES ABG RESULT DR. ARAGON IS AWARE NO NEW ORDER AT THIS TIME.
[2020-02-12] MEDS: FERRLICET 125MG in 100 ML NS IVPB IV SCH (14:19)
[2020-02-12 16:00] VITALS: BP 152/72
--- NOTE | 2020-02-12 19:21 | NUR ---
MS/RN CLOSING NOTES PATIENT IS ON BED, ALERT AND ORIENTED X 2-3. PATIENT IN NO APPARENT RESPIRATORY DISTRESS NOTED. DENIES PAIN AT THIS TIME. IV ACCESS AT LEFT FOREARM # 22 G WITH IV FLUID OF NS 1L AT 100 ML/HR ON AND INFUSING WELL. SEEN AND EXAMINED BY MD WITH ORDERS MADE AND CARRIED OUT. ALL DUE MEDICATION WAS GIVEN. CHECKED AND TURNED PATIENT EVERY 2 HOURS. SAFETY PRECAUTION IN PLACED. BED IN LOWEST POSITION, SIDE RAILS UP X2 AND LOCKED. CALL LIGHT WITHIN REACH. WILL ENDORSED TO AEROSPACE STRESS ENGINEER FOR HOMER.
--- NOTE | 2020-02-12 19:22 | NUR ---
MS RN OPENING NOTES PATIENT AWAKE IN BED. A/OX3. UKRAINIAN SPEAKING. NO S/S OF ACUTE RESPIRATORY DISTRESS NOTED; BREATHING IS EVEN AND UNLABORED. NO C/O PAIN. IV PRESENT ON LEFT FA, SIZE 22, INTACT & PATENT WITH NS RUNNING AT 100 ML/HR. SAFETY MEASURES IN PLACE AND PATIENT' S NEEDS MET. BED LOCKED, ALARM ON, SIDE RAILS X2, CALL LIGHT WITHIN REACH. WILL CONTINUE TO MONITOR.
[2020-02-12 20:00] VITALS: BP 147/71
[2020-02-12] MEDS ORDERED: MISO100T PO (22:24)
[2020-02-12] MEDS ORDERED: PANT40TA2 PO (22:24)
[2020-02-12] MEDS ORDERED: LEVO125T PO (22:24)
[2020-02-12] MEDS ORDERED: ALBUMIN 25% 100 ML IV ONE (22:57)
[2020-02-13] MEDS: ALBUMIN 25% 25 GM in PREMIX 1 EA IV SCH (00:48)
[2020-02-13 06:40] LABS: ALBUMIN 3.3 g/dL (3.4-5.0); BILIRUBIN,TOTAL 0.7 mg/dL (0.2-1.0); CALCIUM, SERUM 8.5 mg/dL (8.5-10.1); CREATININE 1.3 mg/dL (0.6-1.3); POTASSIUM 5.3 mmol/L (3.5-5.1); TOTAL PROTEIN, SERUM 6.3 g/dL (6.4-8.2)
--- NOTE | 2020-02-13 07:42 | NUR ---
MS RN CLOSING NOTES PATIENT SLEEPING IN BED, EASY TO AWAKEN. A/OX3. NO ACUTE CHANGE DURING SHIFT. NO S/S OF ACUTE RESPIRATORY DISTRESS OR PAIN NOTED. SAFETY MEASURES IN PLACE AND PATIENT'S NEEDS MET. BED LOCKED, ALARM ON, SIDE RAILS X2, CALL LIGHT WITHIN REACH. ENDORSED TO DAY SHIFT RN PLAN OF CARE.
[2020-02-13 07:50] LABS: BASOPHILS % (AUTO) 0.4 % (0.0-2.0); EOSINOPHILS % (AUTO) 2.6 % (0.0-6.0); HEMATOCRIT 24 % (33-45); HEMOGLOBIN 7.1 g/dL (11.5-14.8); LYMPHOCYTES # (AUTO) 0.5 /CMM (0.8-4.8); LYMPHOCYTES % (AUTO) 15.7 % (20.0-44.0); MEAN CORPUSCULAR HGB CONC 29 g/dl (31.0-36.0); MEAN CORPUSCULAR VOLUME 99 fL (82-100); MONOCYTES # (AUTO) 0.2 /CMM (0.1-1.30); MONOCYTES % (AUTO) 6.4 % (2.0-12.0); NEUTROPHILS # (AUTO) 2.3 /CMM (1.8-8.9); NEUTROPHILS % (AUTO) 74.9 % (43.0-81.0); PLATELET COUNT (AUTO) 92 /CMM (150-450); RED BLOOD CELL COUNT(AUTO) 2.45 MIL/uL (4.0-5.2)
[2020-02-13 08:00] VITALS: BP 141/60
[2020-02-13] MEDS: LEVOTHYROXINE SODIUM 125 MCG TABLET PO SCH (08:32)
[2020-02-13] MEDS: MISOPROSTOL 100 MCG TABLET PO SCH (08:32)
[2020-02-13] MEDS: PANTOPRAZOLE 40 MG TABLET.DR PO SCH (08:32)
[2020-02-13] MEDS: Z GUARD REMEDY 2 OZ OINT TP SCH (08:33)
[2020-02-13] MEDS: CLOTRIMAZOLE 1% 15 GM TUBE TP SCH (08:36)
[2020-02-13] MEDS: CLOTRIMAZOLE/BETAMETASONE DIPROPIONATE 15 GM TUBE TP SCH (08:36)
--- NOTE | 2020-02-13 11:52 | NUR ---
MS RN NOTES S/P PARACENTESIS 4600ML OUT. CALL RECEIVED FROM DR. QUINTANA REPORTED PATIENTS STATUS ORDERS TO MONITOR PATIENT. OBTAIN ORTHOSTATIC BP IF STABLE DC HOME AFTER 1300.
[2020-02-13 16:00] VITALS: BP_SYST 136; BP_SYST 138; BP_SYST 140; BP_DIAS 56; BP_DIAS 57; BP_DIAS 59
--- NOTE | 2020-02-13 16:08 | NUR ---
MS RN NOTES INFORMED DR. SHABAZZ OF PATIENTS ORTHOSTATIC BP RESULTS. SPOKE TO PATIENTS SON PROVIDED DISCHARGE INSTRUCTIONS. PATIENT WILL BE PICKED UP AT 5 PM. BY SON.
--- NOTE | 2020-02-13 17:00 | NUR ---
MS RN NOTES PATIENT DISCHARGED HOME WITH SON. DISCHARGE TEACHING PROVIDED TO PATIENT AND PATIENTS SON. BOTH VERBALIZED UNDERSTANDING. DISCHARGE PROTOCOL FOLLOWED. MD AWARE OF ALL ABNORMAL LABS AND TESTS. PATIENT IN STABLE CONDITION. PERINEPHRIAL IV REMOVED. ID BAND REMOVED. PATIENT ESCORTED TO CAR.
[2020-02-14 12:21] LABS: *SPE A/G RATIO 1.1 (0.7-1.7); *SPE ALBUMIN 3.3 g/dL (2.9-4.4); *SPE ALPHA-1-GLOBULIN 0.2 g/dL (0.0-0.4); *SPE ALPHA-2-GLOBULIN 0.7 g/dL (0.4-1.0); *SPE BETA GLOBULIN 0.8 g/dL (0.7-1.3); *SPE GLOBULIN, TOTAL 3.1 g/dL (2.2-3.9); *SPE M-SPIKE Not Observed g/dL (Not Observed); *SPEGAMMA GLOBULIN 1.5 g/dL (0.4-1.8)
== END 2020-02-13 17:00 | disposition home or self-care (01) | DRG 640 ==
LOC: EDBD 17:59 → EDSEX 17:59 → ER 17:59 → EDUNIT# 21:14 → TELE 21:14 → MED 02-10 07:49 → TELE 02-11 02:55 → MED 02-11 08:41
PROVIDERS: ADMIT Family Medicine; ATTEND Family Medicine
PROC: 0W9G3ZZ Drainage of Peritoneal Cavity, Percutaneous Approach (ICD-10-PCS; principal; 2020-02-10)
DX: E86.0 Dehydration (principal); N17.0 Acute kidney failure with tubular necrosis; I13.2 Hypertensive heart and chronic kidney disease with heart failure and with stage 5 chronic kidney disease, or end stage renal disease; R18.8 Other ascites; G93.1 Anoxic brain damage, not elsewhere classified; R64 Cachexia; K76.6 Portal hypertension; D61.818 Other pancytopenia; I48.92 Unspecified atrial flutter; I13.0 Hypertensive heart and chronic kidney disease with heart failure and stage 1 through stage 4 chronic kidney disease, or unspecified chronic kidney disease; E87.2 Acidosis; F09 Unspecified mental disorder due to known physiological condition; E78.5 Hyperlipidemia, unspecified; K21.9 Gastro-esophageal reflux disease without esophagitis; K29.70 Gastritis, unspecified, without bleeding; I25.10 Atherosclerotic heart disease of native coronary artery without angina pectoris; Z95.1 Presence of aortocoronary bypass graft; Z95.0 Presence of cardiac pacemaker; R26.9 Unspecified abnormalities of gait and mobility; Z90.49 Acquired absence of other specified parts of digestive tract; Z87.440 Personal history of urinary (tract) infections; Z87.11 Personal history of peptic ulcer disease; Z86.73 Personal history of transient ischemic attack (TIA), and cerebral infarction without residual deficits; Z83.3 Family history of diabetes mellitus; Z82.49 Family history of ischemic heart disease and other diseases of the circulatory system; M81.0 Age-related osteoporosis without current pathological fracture; E11.65 Type 2 diabetes mellitus with hyperglycemia; Z86.19 Personal history of other infectious and parasitic diseases; E66.9 Obesity, unspecified; Z79.51 Long term (current) use of inhaled steroids; E87.5 Hyperkalemia; D63.1 Anemia in chronic kidney disease; I48.91 Unspecified atrial fibrillation; I70.0 Atherosclerosis of aorta; K42.9 Umbilical hernia without obstruction or gangrene; K40.20 Bilateral inguinal hernia, without obstruction or gangrene, not specified as recurrent; M19.90 Unspecified osteoarthritis, unspecified site; F03.90 Unspecified dementia, unspecified severity, without behavioral disturbance, psychotic disturbance, mood disturbance, and anxiety; L30.4 Erythema intertrigo; M79.7 Fibromyalgia; R32 Unspecified urinary incontinence; K74.60 Unspecified cirrhosis of liver; K31.89 Other diseases of stomach and duodenum; I08.2 Rheumatic disorders of both aortic and tricuspid valves; I25.2 Old myocardial infarction; F43.20 Adjustment disorder, unspecified; F43.10 Post-traumatic stress disorder, unspecified; E20.8 Other hypoparathyroidism; E11.22 Type 2 diabetes mellitus with diabetic chronic kidney disease; E11.51 Type 2 diabetes mellitus with diabetic peripheral angiopathy without gangrene; I27.20 Pulmonary hypertension, unspecified; B35.1 Tinea unguium; E03.9 Hypothyroidism, unspecified; K57.90 Diverticulosis of intestine, part unspecified, without perforation or abscess without bleeding; N18.9 Chronic kidney disease, unspecified; I50.9 Heart failure, unspecified; I95.9 Hypotension, unspecified
CPT/HCPCS: 36415; 36600; 71045-TC; 76942-TC; 80048-TC; 80053-TC; 80076-TC; 81000-TC; 82140-TC; 82550-TC; 82570-TC; 82803-TC; 82962-TC; 83540-TC; 83690-TC; 83735-TC; 83880; 83970; 84100-TC; 84132-TC; 84155; 84155-TC; 84165; 84300-TC; 84443-TC; 84484-TC; 85025-TC; 85730-TC; 87070-TC; 87081-TC; 87086-TC; 87186-TC; 88112-TC; 88305-TC; 88312-TC; 89051-TC; 93307-TC; A4216; C9113; G0378; J1815; J1885; J1940; J2916; J3490; J7030; P9047

== ENCOUNTER 2020-03-16 14:15 | Inpatient (IN) | payer MEDICARE, OTHER ==
[~2020-03-16] VITALS: Ht 152.4 cm; Wt 76.2 kg
[~2020-03-16 14:15] MED LIST changes: +LEVO125T PO; +MISO100T PO
--- NOTE | 2020-03-16 14:25 | NUR ---
[id number] FRM HOME C/O ABDOMINAL DISTENSION, NAUSEA AND VOMITING. PATIENT A/OX4, BREATHING EVEN AND UNLABORED, NO SOB NOTED, NEEDS ATTENDED.
[2020-03-16] MEDS ORDERED: ALBUMIN 25% 100 ML IV ONE (14:29)
[2020-03-16] MEDS ORDERED: ONDANSETRON HCL/PF 4 MG/2 ML VIAL ONE (14:29)
[2020-03-16] MEDS ORDERED: ONDANSETRON HCL/PF 4 MG/2 ML VIAL IVP ONE (14:30)
[2020-03-16] MEDS ORDERED: ALBUMIN 25% 12.5 GM/50 ML BOTTLE IV ONE (14:30)
--- NOTE | 2020-03-16 14:45 | NUR ---
IV ACCESS/ALBUMIN/ZOFRAN IV ACCESS STARTED ON R AC G20. INTACT AND PATENT AND FLUSHING WELL. BLOOD COLLECTED FOR LAB WORK. ZOGRAN ADMINISTERED FOR N/V. ALBUMIN INFUSION STARTED.
[2020-03-16 14:50] LABS: BASOPHILS % (AUTO) 0.7 % (0.0-2.0); EOSINOPHILS % (AUTO) 3.5 % (0.0-6.0); HEMATOCRIT 28 % (33-45); HEMOGLOBIN 8.5 g/dL (11.5-14.8); LYMPHOCYTES # (AUTO) 0.5 /CMM (0.8-4.8); LYMPHOCYTES % (AUTO) 13.5 % (20.0-44.0); MEAN CORPUSCULAR HGB CONC 30 g/dl (31.0-36.0); MEAN CORPUSCULAR VOLUME 97 fL (82-100); MONOCYTES # (AUTO) 0.2 /CMM (0.1-1.30); MONOCYTES % (AUTO) 5.9 % (2.0-12.0); NEUTROPHILS % (AUTO) 76.4 % (43.0-81.0); PLATELET COUNT (AUTO) 146 /CMM (150-450); RED BLOOD CELL COUNT(AUTO) 2.92 MIL/uL (4.0-5.2); WHITE BLOOD COUNT (AUTO) 3.9 K/uL (4.3-11.0)
[2020-03-16 15:03] LABS: ALANINE AMINOTRANSFERASE 13 U/L (12-78); ALBUMIN 3.4 g/dL (3.4-5.0); ALKALINE PHOSPHATASE 128 U/L (46-116); ASPARTATE AMINOTRANSFERASE 19 U/L (15-37); BILIRUBIN,DIRECT 0.3 mg/dL (0.0-0.2); BILIRUBIN,TOTAL 0.7 mg/dL (0.2-1.0); CALCIUM, SERUM 8.9 mg/dL (8.5-10.1); CARBON DIOXIDE 22 mmol/L (21-32); CHLORIDE 109 mmol/L (98-107); CREATININE 1.7 mg/dL (0.6-1.3); GLUCOSE 138 mg/dL (74-106); LIPASE 213 U/L (73-393); SODIUM SERUM 139 mmol/L (136-145); TOTAL PROTEIN, SERUM 8.6 g/dL (6.4-8.2); UREA NITROGEN, BLOOD 33 mg/dL (7-18)
[2020-03-16 15:05] LABS: POTASSIUM 6.6 mmol/L (3.5-5.1)
[2020-03-16] MEDS ORDERED: FUROSEMIDE 20 MG/2 ML VIAL ONE (15:15)
[2020-03-16] MEDS ORDERED: SODIUM POLYSTYRENE SULFONATE 15 G/60 ML BOTTLE ONE (15:15)
[2020-03-16] MEDS ORDERED: SODIUM BICARBONATE SYR 50 MEQ/50 ML DISP.SYRIN ONE (15:15)
[2020-03-16] MEDS ORDERED: DEXTROSE 50%-WATER 50 ML DISP.SYRIN ONE (15:16)
[2020-03-16] MEDS ORDERED: INSULIN REGULAR, HUMAN 100 UNIT/ML 10 ML VIAL ONE (15:16)
[2020-03-16] MEDS: SODIUM POLYSTYRENE SULFONATE 15 G/60 ML BOTTLE PO ONE ×2 (15:27→16:12)
[2020-03-16] MEDS ORDERED: SODIUM BICARBONATE SYR 50 MEQ/50 ML DISP.SYRIN IV ONE (15:30)
[2020-03-16] MEDS ORDERED: FUROSEMIDE 40 MG/4 ML VIAL IV ONE (15:30)
[2020-03-16] MEDS ORDERED: INSULIN REGULAR, HUMAN 100 UNIT/ML 10 ML VIAL IV ONE (15:30)
[2020-03-16] MEDS ORDERED: DEXTROSE 50%-WATER 50 ML DISP.SYRIN IV ONE (15:30)
--- NOTE | 2020-03-16 15:42 | NUR ---
RADIOLOGIST AT BEDSIDE FOR ULTRASOUND GUIDED PARACENTESIS
--- NOTE | 2020-03-16 15:51 | NUR ---
CALLED SHARON [phone] [facility]
--- NOTE | 2020-03-16 15:52 | NUR ---
GLENDA HERRERA CELL [phone] [facility].
--- NOTE | 2020-03-16 16:07 | NUR ---
6.2 LITERS OUTPUT FROM PARACENTESIS PER FEED BLENDER.
--- NOTE | 2020-03-16 16:14 | NUR ---
PATIENT REFUSED KAYEXALATE, EXPLAINED RISKS AND BENEFITS, STILL REFUSED. DR. YANEZ MADE AWARE.
--- NOTE | 2020-03-16 17:09 | NUR ---
COVID SWAB SENT
--- NOTE | 2020-03-16 18:20 | NUR ---
REPORT GIVEN TO NERIS BURK FOR HOMER.
[2020-03-16 19:05] VITALS: BP 153/60
--- NOTE | 2020-03-16 19:05 | NUR ---
INSPECTOR RUBBER STAMP DIEHERBICIDE SPRAYER NOTE RECEIVED PATIENT VIA GURNEY. TRANSFER TO BED. A/OX4. SWEDISH SPEAKING ABLE TO MAKE BASIC NEEDS KNOWN. TOLERATING ROOM AIR. RESPIRATIONS ARE EVEN AND UNLABORED NO S/S SOB NOTED. NO S/S PAIN AT THIS TIME. EXTERNAL TEL MONITOR READ A PACING. IN NO APPARENT DISTRESS. IV ACCESS IN RAC#20 PATENT AND SALINE LOCKED. REHAB OFFICE COORDINATOR OBTAINED VITAL SIGNS AND COMPLETED BELONGINGS LIST. INATAL PHYSICAL ASSESSMENT COMPLETED AT THIS TIME. SKIN ASSESSMENT COMPLETED, PHOTOS TAKEN AND PLACED IN CHART. BED IS LOW AND LOCKED, HOB ELEVATED IN SEMI FOWLERS, SIDE RIAL SUP X2. CALL LIGHT WITHIN REACH.W ILL CONTINUE TO MONITOR.
--- NOTE | 2020-03-16 19:26 | NUR ---
patient transferred to room 312-1 via acls protocol. No distress noted. Endorsed to Niki BURK.
--- NOTE | 2020-03-16 19:43 | NUR ---
telephone exchange operator note Dr. Turpin called to give orders for patient. MD telephone order albumin 25% @100ml/hr Q8hr, Protonix 40mg PO daily, Ferrlecit 125mg iv daily x3, Kayexalate 60mg enema, regular diet, o2 nasal cannula, am labs: CBC, BMP, Zofran 4mg Q6hr PRN, Tylenol 500mg Q6hr PRN. orders read back noted and carried out.
[2020-03-16 20:00] VITALS: BP 153/60
[2020-03-16] MEDS ORDERED: ONDANSETRON HCL/PF 4 MG/2 ML VIAL IV PRN (20:00)
[2020-03-16] MEDS ORDERED: SODIUM POLYSTYRENE SULFONATE 15 G/60 ML BOTTLE PO ONE (20:00)
--- NOTE | 2020-03-16 20:20 | NUR ---
SSIS ETL DEVELOPER NOTE CALLED DR. REED OFFICE/ ANSWERING SERVICE. GAVE CELL PHONE NUMBER, LEFT A MESSAGE TO CALL BACK FOR CLARIFICATION ON ORDERS.
--- NOTE | 2020-03-16 22:00 | NUR ---
SOUND EFFECTS SUPERVISOR NOTE CALLED DR. HERRERA AND CLARIFIED ORDERS. INFORMED MD THAT WE DO NOT CARRY TYLENOL ON 500MG WE HAVE A 650MG OR 325MG, TELEPHONE ORDER TYLENOL 325MG PO Q6HR PRN. ORDER READ BACK, NOTED AND CARRIED OUT. ALSO ASKED MD ABOUT ALBUMIN 25%ORDER HOW MANY BAGS HE WOULD LIKE, TELEPHONE ORDER Q8HR OVER 48HR. ORDER READ BACK AND NOTED, AND CARRIED OUT. ASKED MD FOR AND ADMIT TO ORDER. TELEPHONE ORDER ADMIT TO TELEMETRY, DX ASCITES, HYPERKALEMIA. ORDER READ BACK NOTED AND CARRIED OUT. ASKED MD IF HE WOULD LIKE PATIENT ON FLUIDS. TELEPHONE ORDER NO FLUIDS AT THIS TIME. PO FLUIDS OK. ORDER READ BACK NOTED AND CARRIED OUT. ASKED MD IF HE WOULD LIKE ANY DVT PUMPS OR CHEMICAL PROPHYLAXIS, TELEPHONE ORDER NO FOR BOTH. ORDER READ BACK NOTED AND CARRIED OUT.
[2020-03-16] MEDS ORDERED: ACETAMINOPHEN 325 MG TABLET PO PRN (22:30)
[2020-03-16] MEDS ORDERED: ALBUMIN 25% 200 ML IV ONE (22:41)
[2020-03-16] MEDS: ALBUMIN 25% 25 GM in PREMIX 1 EA IV SCH (23:07)
[2020-03-17] VITALS: BP 134/57
--- NOTE | 2020-03-17 00:50 | NUR ---
supervisor lending activities opening notes Received Pt from BHARGAVI Lehman. Pt is resting in bed comfortably. Pt is alert and orientedX3. Pt speaks Bermudian and able to make needs known. Respiration is normal in room air. No SOB. No S/S of distress noted. Tele monitor showed A-pacing Hr at 63bpm. IV sites at RAC# 20 is clean, intact and flush without resistance. Safety precautions is maintained. Bed at low position, brakes locked, HOB elevated, side railsupX3 and call light is within reach. Will continue to monitor.
[2020-03-17 04:00] VITALS: BP 116/49
[2020-03-17] MEDS: ALBUMIN 25% 25 GM in PREMIX 1 EA IV SCH ×3 (05:34→22:17)
--- NOTE | 2020-03-17 06:40 | NUR ---
human machine interface engineer closing notes Pt is resting in bed comfortably. Pt is alert and orientedX3. Respiration is normal in room air. No SOB. No S/S of distress noted. VS is stable. Afebrile. Tele monitor showed A-pacing Hr at 61bpm. Routine meds were given as ordered. IV sites at RAC# 20 is clean, intact, flush without resistance and SL. Kept Pt clean, dry and comfortable. All needs met and attended. Safety precautions is maintained. Bed at low position, brakes locked, HOB elevated, side rails upX3 and call light is within reach. Will endorse to morning nurse for HOMER.
[2020-03-17 06:53] LABS: BASOPHILS % (AUTO) 0.4 % (0.0-2.0); EOSINOPHILS % (AUTO) 3.8 % (0.0-6.0); HEMATOCRIT 26 % (33-45); HEMOGLOBIN 7.4 g/dL (11.5-14.8); LYMPHOCYTES # (AUTO) 0.4 /CMM (0.8-4.8); LYMPHOCYTES % (AUTO) 14.7 % (20.0-44.0); MEAN CORPUSCULAR HGB CONC 28 g/dl (31.0-36.0); MEAN CORPUSCULAR VOLUME 103 fL (82-100); MONOCYTES # (AUTO) 0.3 /CMM (0.1-1.30); MONOCYTES % (AUTO) 8.5 % (2.0-12.0); NEUTROPHILS # (AUTO) 2.2 /CMM (1.8-8.9); NEUTROPHILS % (AUTO) 72.6 % (43.0-81.0); PLATELET COUNT (AUTO) 108 /CMM (150-450); RED BLOOD CELL COUNT(AUTO) 2.53 MIL/uL (4.0-5.2)
[2020-03-17 07:13] LABS: CALCIUM, SERUM 8.6 mg/dL (8.5-10.1); CARBON DIOXIDE 20 mmol/L (21-32); CHLORIDE 111 mmol/L (98-107); CREATININE 1.6 mg/dL (0.6-1.3); GLUCOSE 88 mg/dL (74-106); SODIUM SERUM 141 mmol/L (136-145); UREA NITROGEN, BLOOD 32 mg/dL (7-18)
--- NOTE | 2020-03-17 07:30 | NUR ---
HOME CARE MANAGER RN NOTES PATIENT RECEIVED IN BED, ALERT AND ORIENTED X 3, MARSHALLESE SPEAKING. PATIENT ON ROOM AIR WITH NO SIGNS OF RESPIRATORY DISTRESS PRESENT AT THIS TIME, WITH EVEN NON-LABORED BREATHING, AND NO SOB NOTED. ON CVICU RN, WITH A PACING 60. PATIENT IV ACCESS INTACT AND PATENT. SKIN WARM AND DRY TO TOUCH. PATIENT PRESENTS WITH NO SIGNS OF PAIN OR DISCOMFORT AT THIS TIME. SAFETY PRECAUTIONS IMPLEMENTED WITH BED LOCKED, BED IN THE LOWEST POSITION, BILATERAL SIDE RAILS UP, BED ALARM ON, AND CALL LIGHT WITHIN EASY REACH OF THE PATIENT. WILL CONTINUE TO MONITOR PATIENT.
[2020-03-17 07:40] LABS: POTASSIUM 6.6 mmol/L (3.5-5.1)
[2020-03-17 08:00] VITALS: BP 129/51
[2020-03-17] MEDS ORDERED: SODIUM POLYSTYRENE SULFONATE 15 G/60 ML BOTTLE PO ONE (09:30)
[2020-03-17] MEDS: PANTOPRAZOLE 40 MG TABLET.DR PO SCH (09:51)
[2020-03-17] MEDS: LEVOTHYROXINE SODIUM 125 MCG TABLET PO SCH (09:51)
[2020-03-17] MEDS: PROPRANOLOL HCL 10 MG TABLET PO SCH ×2 (09:57→20:31)
[2020-03-17] MEDS: MISOPROSTOL 100 MCG TABLET PO SCH ×4 (10:21→20:31)
[2020-03-17] MEDS ORDERED: FUROSEMIDE 40 MG/4 ML VIAL IV ONE (10:30)
[2020-03-17 12:31] LABS: APPEARANCE,URINE SL CLOUDY (CLEAR); BILIRUBIN,URINE NEGATIVE (NEGATIVE); BLOOD, URINE TRACE-INTA Ery/uL (NEGATIVE); COLOR,URINE YELLOW (YELLOW); KETONES,URINE NEGATIVE (NEGATIVE); LEUKOCYTE ESTERASE ,URINE MODERATE (NEGATIVE); NITRITE, URINE NEGATIVE (NEGATIVE); PH,URINE 5.5 (5.0-8.0); PROTEIN,URINE NEGATIVE (NEGATIVE); UGLUCOSE NEGATIVE (NEGATIVE); UROBILINOGEN,URINE 0.2 EU/dL (0.2)
[2020-03-17 12:34] LABS: CALCIUM, SERUM 8.6 mg/dL (8.5-10.1); CARBON DIOXIDE 21 mmol/L (21-32); CHLORIDE 111 mmol/L (98-107); CREATININE 1.6 mg/dL (0.6-1.3); GLUCOSE 141 mg/dL (74-106); SODIUM SERUM 141 mmol/L (136-145)
[2020-03-17 12:39] LABS: BACTERIA,URINE 1+ /HPF (None Seen); MUCUS,URINE Many /LPF (None Seen); SQUAMOUS EPITHELIAL CELL,UR Moderate /HPF (None Seen); WBC,URINE 81-100 /HPF (0-3)
[2020-03-17 12:40] LABS: UREA NITROGEN, BLOOD 31 mg/dL (7-18)
[2020-03-17 13:00] LABS: CHLORIDE,URINE RANDOM 134 mmol/L (55-125); POTASSIUM RNDM,URINE 17 mmol/L (25-125); URINE SODIUM, RANDOM 121 mmol/l (40-220)
[2020-03-17] MEDS ORDERED: PROPRANOLOL HCL 10 MG TABLET PO SCH (13:00)
[2020-03-17] MEDS ORDERED: ZOLPIDEM TARTRATE 5 MG TABLET PO PRN (13:00)
[2020-03-17] MEDS ORDERED: hydrALAZINE HCL 25 MG TABLET PO PRN (13:00)
--- NOTE | 2020-03-17 13:00 | NUR ---
ASSISTANT CROSS COUNTRY COACH NOTES PATIENT SEEN AND EXAMINED BY DR HERRERA, INFORMED ABOUT POTASSIUM LEVELS, ORDERED PO KAYEXALATE, AND ALBUMIN 25GM X 3. PATIENT REFUSED PO KAYEXALATE SCHEDULE AT 0930. INFORMED DR HERRERA AND ORDERED RECTAL KAYEXALATE. WILL CARRY OUT ORDERS AND CONTINUE TO MONITOR PATIENT.
[2020-03-17 13:07] LABS: POTASSIUM 6.7 mmol/L (3.5-5.1)
[2020-03-17 13:11] LABS: OSMOLALITY,URINE 326 mOS/kg (340-1090)
[2020-03-17] MEDS: SOD FERRIC GLUC 125 MG in IV NS 0.9% 100 ML IV SCH (13:20)
[2020-03-17] MEDS: IPRATROPIUM NEB FS 0.5 MG/2.5 ML AMPUL.NEB NEB SCH ×3 (13:30→19:20)
[2020-03-17] MEDS: ISOSORBIDE DINITRATE (20MG) 20 MG TABLET PO SCH ×2 (13:48→17:57)
[2020-03-17] MEDS ORDERED: SODIUM POLYSTYRENE SULFONATE 15 G/60 ML BOTTLE RC ONE (14:00)
[2020-03-17] MEDS ORDERED: MISOPROSTOL 100 MCG TABLET PO SCH (17:00)
[2020-03-17] MEDS: REPAGLINIDE 2 MG TABLET PO SCH (17:57)
--- NOTE | 2020-03-17 18:50 | NUR ---
UI DEVELOPER WITH ANGULAR JS NOTES PATIENT IN BED RESTING COMFORTABLY. ALERT AND ORIENTED X 3. ON ROOM AIR WITH NO SIGNS OF RESPIRATORY DISTRESS PRESENT AT THIS TIME, WITH EVEN NON-LABORED BREATHING, AND NO SOB NOTED. PATIENT ON GRAIN DRIER OPERATOR A-PACING 60'S. PATIENT SKIN WARM AND DRY TO TOUCH. MET ALL OF PATIENT'S NEEDS. PATIENT PRESENTS WITH NO SIGNS OF PAIN OR DISCOMFORT. SAFETY PRECAUTIONS IMPLEMENTED WITH BED LOCKED, BED IN THE LOWEST POSITION, BILATERAL SIDE RAILS UP, BED ALARM ON AND CALL LIGHT WITHIN EASY REACH OF THE PATIENT. WILL ENDORSE PLAN OF CARE TO UPCOMING NURSE.
--- NOTE | 2020-03-17 19:58 | NUR ---
TELE/RN NOTE Patient refused RT treatment, per respiratory therapist. Patient satting 94% on room air.
[2020-03-17 20:00] VITALS: BP 129/60
--- NOTE | 2020-03-17 20:10 | NUR ---
TELE/RN OPENING NOTE Patient awake in bed, a/o x3, bedbound. Face is symmetrical, tongue midline. No tracheal deviation. No JVD. Patient on room air, breath sounds even, clear, unlabored. No respiratory distress or SOB noted. Tele monitor A-pacing in the 60s. Skin is warm, pink, dry appropriate for ethnicity. Redness noted in breastfold and heels. Bowel sounds hypoactive in all quadrants. Abdomen round, soft, non-tender. Patient is incontinent. Bed in low position, wheels locked, side rails up x2, call light within reach.
[2020-03-17 21:37] VITALS: BP 129/60
[2020-03-18] VITALS (7 sets, daily range): BP systolic 104–150; BP diastolic 43–65
[2020-03-18] MEDS: IPRATROPIUM NEB FS 0.5 MG/2.5 ML AMPUL.NEB NEB SCH ×4 (01:30→19:29)
[2020-03-18] MEDS: ALBUMIN 25% 25 GM in PREMIX 1 EA IV SCH ×2 (05:24→13:14)
--- NOTE | 2020-03-18 06:50 | NUR ---
TELE/RN CLOSING NOTE Patient asleep in bed, a/o x3, bedbound. Patient on room air, breath sounds even, clear, unlabored. No respiratory distress or SOB noted. Tele monitor A-pacing in the 60s. Skin is warm, pink, dry appropriate for ethnicity. Redness noted in breastfold and heels. Patient is incontinent, void 3x. No bowel movement this shift. Bed in low position, wheels locked, side rails up x2, call light within reach.
[2020-03-18 06:57] LABS: BASOPHILS % (AUTO) 0.2 % (0.0-2.0); EOSINOPHILS % (AUTO) 3.1 % (0.0-6.0); HEMATOCRIT 24 % (33-45); HEMOGLOBIN 7.3 g/dL (11.5-14.8); LYMPHOCYTES # (AUTO) 0.4 /CMM (0.8-4.8); LYMPHOCYTES % (AUTO) 11.6 % (20.0-44.0); MEAN CORPUSCULAR HGB CONC 30 g/dl (31.0-36.0); MEAN CORPUSCULAR VOLUME 96 fL (82-100); MONOCYTES # (AUTO) 0.3 /CMM (0.1-1.30); MONOCYTES % (AUTO) 8.7 % (2.0-12.0); NEUTROPHILS # (AUTO) 2.8 /CMM (1.8-8.9); NEUTROPHILS % (AUTO) 76.4 % (43.0-81.0); PLATELET COUNT (AUTO) 110 /CMM (150-450); RED BLOOD CELL COUNT(AUTO) 2.52 MIL/uL (4.0-5.2); WHITE BLOOD COUNT (AUTO) 3.6 K/uL (4.3-11.0)
[2020-03-18] MEDS: LEVOTHYROXINE SODIUM 125 MCG TABLET PO SCH (06:57)
[2020-03-18 07:16] LABS: ALANINE AMINOTRANSFERASE 6 U/L (12-78); ALBUMIN 3.5 g/dL (3.4-5.0); ALKALINE PHOSPHATASE 76 U/L (46-116); ASPARTATE AMINOTRANSFERASE 9 U/L (15-37); BILIRUBIN,TOTAL 0.4 mg/dL (0.2-1.0); CALCIUM, SERUM 8.3 mg/dL (8.5-10.1); CARBON DIOXIDE 22 mmol/L (21-32); CHLORIDE 110 mmol/L (98-107); CREATININE 1.7 mg/dL (0.6-1.3); SODIUM SERUM 141 mmol/L (136-145); TOTAL PROTEIN, SERUM 6.8 g/dL (6.4-8.2); UREA NITROGEN, BLOOD 32 mg/dL (7-18)
[2020-03-18] MEDS ORDERED: LEVOTHYROXINE SODIUM 125 MCG TABLET PO SCH (07:30)
[2020-03-18] MEDS ORDERED: PANTOPRAZOLE 40 MG TABLET.DR PO SCH (07:30)
[2020-03-18 07:43] LABS: GLUCOSE 40 mg/dL (74-106); POTASSIUM 6.2 mmol/L (3.5-5.1)
--- NOTE | 2020-03-18 08:00 | NUR ---
RN NOTES RECEIVED PATIENT IN THE BED ROOM AIR ON TELE SR-63, PATIENT REFUSED PAIN, MALDIVIAN SPEAKER. PATIENT HAS DISTENDED ABDOMEN, ADMINISTERED SCHEDULED MEDICATION, V/S WNL, ABLE TO TURN AND REPOSTION SELF IN THE BED. IV ACCESS ON RIGHT HAND INTACT. TOLERTED BREAKFAST PHYLLIS 35%. CALL LIGHT WITHIN TO REACH. CONTINUED MONITORING.
[2020-03-18] MEDS ORDERED: TIOTROPIUM BROMIDE 6 CAP/BOX CAP.W.DEV IH SCH (09:00)
[2020-03-18] MEDS: PROPRANOLOL HCL 10 MG TABLET PO SCH ×2 (09:00→20:19)
[2020-03-18] MEDS: FOLIC ACID 1 MG TABLET PO SCH (09:56)
[2020-03-18] MEDS: ISOSORBIDE DINITRATE (20MG) 20 MG TABLET PO SCH ×3 (09:57→16:41)
[2020-03-18] MEDS: MISOPROSTOL 100 MCG TABLET PO SCH ×4 (09:57→20:18)
[2020-03-18] MEDS: REPAGLINIDE 2 MG TABLET PO SCH ×3 (09:57→16:41)
[2020-03-18] MEDS: PANTOPRAZOLE 40 MG TABLET.DR PO SCH (09:59)
--- NOTE | 2020-03-18 12:00 | NUR ---
RN NOTES SEEN PATIENT BY HOSPITALIST, AND REPAIR COIL WINDER, , PER MD'S WILL MONITOR FOR KOTASIUM, AND NO CHANGE FOR CARDIAC STRIPS. MD'S WILL FOLLOW UP.
[2020-03-18] MEDS: SOD FERRIC GLUC 125 MG in IV NS 0.9% 100 ML IV SCH (14:06)
[2020-03-18] MEDS: BUMETANIDE (1 MG) 1 MG TABLET PO SCH (16:40)
--- NOTE | 2020-03-18 18:00 | NUR ---
RN NOTES PATIENT STABLE, V/S WNL. ADMINISTERED SCHEDULED MEDICATION DVT PUMP ON. ENDORSED ONCOMING NURSE FOLLOW PLAN OF CARE.
--- NOTE | 2020-03-18 19:32 | NUR ---
TELE/RN OPENING NOTE Patient awake in bed, a/o x3, bedbound. Face is symmetrical. No JVD. Patient on room air, breath sounds even, clear, unlabored. No respiratory distress or SOB noted. Tele monitor A-pacing in the 70s. Skin is warm, pink, dry appropriate for ethnicity. IV site right hand 20g saline locked. Redness noted in breastfold and heels. Bowel sounds hypoactive in all quadrants. Abdomen round, soft, non-tender. Patient is incontinent. Bed in low position, wheels locked, side rails up x2, call light within reach.
[2020-03-19] VITALS: BP 123/60
[2020-03-19] MEDS: IPRATROPIUM NEB FS 0.5 MG/2.5 ML AMPUL.NEB NEB SCH ×4 (01:30→19:30)
[2020-03-19 04:00] VITALS: BP 134/52
--- NOTE | 2020-03-19 05:36 | NUR ---
TELE/RN CLOSING NOTE Patient asleep in bed, a/o x3, bedbound. Patient on room air, breath sounds even, clear, unlabored. No respiratory distress or SOB noted. Tele monitor A-pacing in the 60s. Skin is warm, pink, dry appropriate for ethnicity. IV site right hand 20g saline locked, patent and intact. No signs of infiltration. Redness noted in breastfold, heels, and groin. Patient is incontinent, void 2x. No bowel movement this shift. Bed in low position, wheels locked, side rails up x2, call light within reach.
[2020-03-19 07:04] LABS: BASOPHILS % (AUTO) 0.2 % (0.0-2.0); HEMATOCRIT 28 % (33-45); HEMOGLOBIN 8.1 g/dL (11.5-14.8); LYMPHOCYTES # (AUTO) 0.4 /CMM (0.8-4.8); LYMPHOCYTES % (AUTO) 10.8 % (20.0-44.0); MEAN CORPUSCULAR HGB CONC 29 g/dl (31.0-36.0); MEAN CORPUSCULAR VOLUME 100 fL (82-100); MONOCYTES # (AUTO) 0.3 /CMM (0.1-1.30); MONOCYTES % (AUTO) 7.1 % (2.0-12.0); NEUTROPHILS # (AUTO) 3.1 /CMM (1.8-8.9); NEUTROPHILS % (AUTO) 79.9 % (43.0-81.0); PLATELET COUNT (AUTO) 116 /CMM (150-450); RED BLOOD CELL COUNT(AUTO) 2.77 MIL/uL (4.0-5.2); WHITE BLOOD COUNT (AUTO) 3.8 K/uL (4.3-11.0)
[2020-03-19 07:23] LABS: IRON, SERUM 56 ug/dl (50-175); TOTAL IRON BINDING CAPACITY 134 ug/dl (250-450)
[2020-03-19 07:25] LABS: FERRITIN 226 ng/mL (8-388)
[2020-03-19 07:56] LABS: ALANINE AMINOTRANSFERASE < 6 U/L (12-78); ALBUMIN 3.5 g/dL (3.4-5.0); ALKALINE PHOSPHATASE 74 U/L (46-116); ASPARTATE AMINOTRANSFERASE 8 U/L (15-37); BILIRUBIN,TOTAL 0.5 mg/dL (0.2-1.0); CARBON DIOXIDE 23 mmol/L (21-32); CHLORIDE 110 mmol/L (98-107); CREATININE 1.7 mg/dL (0.6-1.3); GLUCOSE 56 mg/dL (74-106); PHOSPHORUS 4.4 mg/dL (2.5-4.9); SODIUM SERUM 142 mmol/L (136-145); TOTAL PROTEIN, SERUM 6.9 g/dL (6.4-8.2); UREA NITROGEN, BLOOD 30 mg/dL (7-18)
[2020-03-19 08:00] VITALS: BP 145/71
--- NOTE | 2020-03-19 08:00 | NUR ---
RN NOTES RECEIVED PATIENT IN THE BED A/O X3/4, REFUSED PAIN ON ROOM AIR, NO ACUTE RESPIRATORY DISTRESS, V/S WNL SCHEDULED US GUIDED PARACENTESIS TODAY. US TEACH WITH THE PATIENT AT THIS TIME,. ABDOMEN DISTENDED, DVT PUMP ON, PATIENT ABLE TO TURN AND REPOSTION SELF IN THE BED. PATIENT STATE "I FEEL VERY WEAK TODAY". ADMINISTERED SCHEDULED MEDICATION, CALL LIGHT WITHIN TO REACH. WILL CONTINUE MONITORING.
[2020-03-19 08:07] LABS: POTASSIUM 6.2 mmol/L (3.5-5.1)
--- NOTE | 2020-03-19 08:27 | NUR ---
INFORMED BHARGAVI QUINTANILLA AT EXT. [id number] THAT US GUIDED PARACENTESIS WILL BE DONE TOMORROW 03/20/[address] LAMA SINCE PREVIOUS THERAPEUTIC PARACENTESIS WAS DONE 03/16/20
[2020-03-19] MEDS: PANTOPRAZOLE 40 MG TABLET.DR PO SCH (08:36)
[2020-03-19] MEDS: BUMETANIDE (1 MG) 1 MG TABLET PO SCH (08:36)
[2020-03-19] MEDS: LEVOTHYROXINE SODIUM 125 MCG TABLET PO SCH (08:36)
[2020-03-19] MEDS: PROPRANOLOL HCL 10 MG TABLET PO SCH ×2 (08:36→20:20)
[2020-03-19] MEDS: FOLIC ACID 1 MG TABLET PO SCH (08:36)
[2020-03-19] MEDS: MISOPROSTOL 100 MCG TABLET PO SCH ×4 (08:37→20:19)
[2020-03-19] MEDS: REPAGLINIDE 2 MG TABLET PO SCH ×3 (08:37→16:58)
[2020-03-19] MEDS: ISOSORBIDE DINITRATE (20MG) 20 MG TABLET PO SCH ×3 (08:37→17:01)
[2020-03-19 12:00] VITALS: BP_SYST 115; BP_SYST 136; BP_DIAS 49; BP_DIAS 57
--- NOTE | 2020-03-19 14:27 | NUR ---
rn notes patient stable seen by PT, ambulate in the room,us guided paracentesis krishna rescheduled tomorrow.
[2020-03-19] MEDS: SOD FERRIC GLUC 125 MG in IV NS 0.9% 100 ML IV SCH (14:41)
[2020-03-19 16:00] VITALS: BP_SYST 128; BP_DIAS 52; BP_DIAS 53
[2020-03-19] MEDS ORDERED: MISO100T PO (17:53)
[2020-03-19] MEDS ORDERED: BUME1TAB8 PO (17:53)
[2020-03-19] MEDS ORDERED: ACET325T53 PO (17:53)
[2020-03-19] MEDS ORDERED: LEVO125T PO (17:53)
[2020-03-19] MEDS ORDERED: PROP10TA68 PO (17:53)
[2020-03-19] MEDS ORDERED: ZOLP5TAB2 PO (17:53)
[2020-03-19] MEDS ORDERED: PANT40TA2 PO (17:53)
--- NOTE | 2020-03-19 18:00 | NUR ---
RN NOTES PATIENT STABLE, SEEN HOSPITALIST PLAN IS DISCHARGE TOMORROW AFTER US GUIDED PARACENTESIS. PATIENT STABLE, ADMINISTERED SCHEDULED MEDICATION. CALL LIGHT WITHIN TO REACH. REFUSED PAIN, ENDORSED ONCOMING NURSE FOLLOW PLAN OF CARE.
--- NOTE | 2020-03-19 19:29 | NUR ---
TELE/RN OPENING NOTE Patient awake in bed, a/o x3, bedbound. No JVD. Patient on room air, breath sounds even, clear, unlabored. No respiratory distress or SOB noted. Tele monitor A-pacing in the 70s. Skin is warm, pink, dry appropriate for ethnicity. Redness noted in breastfold, groin, and heels. Bowel sounds hypoactive in all quadrants. Abdomen round, soft, non-tender ascites present. Patient is incontinent. Bed in low position, wheels locked, side rails up x2, call light within reach.
[2020-03-19 20:00] VITALS: BP 119/64
[2020-03-20] VITALS: BP 107/41
[2020-03-20] MEDS: IPRATROPIUM NEB FS 0.5 MG/2.5 ML AMPUL.NEB NEB SCH ×3 (01:30→13:30)
[2020-03-20 02:13] VITALS: BP 119/64
--- NOTE | 2020-03-20 03:27 | NUR ---
TELE/RN NOTE Patient blood sugar dropped to 31. Patient visibly weak. Gave juice 3x. Blood sugar raised to 51. Notified MD. New med order for mild sliding scale. Will continue to monitor.
[2020-03-20 04:00] VITALS: BP 131/46
[2020-03-20] MEDS ORDERED: INSULIN REGULAR, HUMAN 100 UNIT/ML 3 ML VIAL SQ PRN (04:00)
[2020-03-20] MEDS: BLOOD SUGAR DIAGNOSTIC 1 EACH STRIP IN SCH ×3 (06:37→17:45)
[2020-03-20] MEDS: LEVOTHYROXINE SODIUM 125 MCG TABLET PO SCH (06:38)
--- NOTE | 2020-03-20 06:42 | NUR ---
TELE/RN NOTE Patient blood sugar 32. Administered PRN dextrose as ordered. Will continue to monitor. Will recheck blood sugar in 15 minutes.
--- NOTE | 2020-03-20 07:38 | NUR ---
TELE/RN CLOSING NOTE Patient asleep in bed. A/O x3. Breath sounds even, clear, unlabored. No respiratory distress or SOB. Afebrile. Patient denies pain. Blood sugar 99 after 1 dose of dextrose. Tele monitor A-pace in the 80s. Patient void 3x in diaper. No bowel movement this shift. Bed in low position, wheels locked, side rails up x2, call light within reach.
--- NOTE | 2020-03-20 07:55 | NUR ---
MS RN OPENING NOTES PATIENT IS ASLEEP IN BED WITH NO SIGNS OF DISTRESS AND NO SOB IN ROOM AIR. IV L HAND #24G INTACT R HAND IV #20G. NO COMPLAIN OF PAIN AT THIS MOMENT. SAFETY MEASURES ARE APPLIED BED IS IN LOW AND LOCKED POSITION SIDE RAILS UP X 2 FOR SAFETY. CALL LIGHT WITHIN REACH WILL CONTINUE TO MONITOR.
--- NOTE | 2020-03-20 07:59 | NUR ---
REFUSED BLOOD DRAW AND RT TREATMENT TODAY. WILL FOLLOW UP.
[2020-03-20 08:00] VITALS: BP 148/56
[2020-03-20] MEDS: PANTOPRAZOLE 40 MG TABLET.DR PO SCH (08:22)
[2020-03-20] MEDS: FOLIC ACID 1 MG TABLET PO SCH (08:23)
[2020-03-20] MEDS: MISOPROSTOL 100 MCG TABLET PO SCH ×3 (08:25→16:58)
[2020-03-20] MEDS: REPAGLINIDE 2 MG TABLET PO SCH ×2 (08:25→13:00)
[2020-03-20] MEDS: PROPRANOLOL HCL 10 MG TABLET PO SCH (08:33)
[2020-03-20] MEDS: ISOSORBIDE DINITRATE (20MG) 20 MG TABLET PO SCH ×3 (08:34→17:04)
[2020-03-20] MEDS: BUMETANIDE (1 MG) 1 MG TABLET PO SCH (08:34)
--- NOTE | 2020-03-20 10:47 | NUR ---
WOUND CARE CONSULT: PT PRESENTS WITH REDNESS AND RASH TO BREASTFOLDS, GROIN FOLDS AND PERINEUM, PRESENT ON ADMISSION. RECOMMENDATIONS MADE FOR SKIN PROTECTION. DISCUSSED WITH NURSING STAFF. ABDOMEN IS VERY LARGE. WILL SEE PRN. IN AGREEMENT WITH PLAN OF CARE.
--- NOTE | 2020-03-20 12:00 | NUR ---
BLOOD SUGAR IS [address] VELAZQUEZ KNOW HE SAID TO FEED HER. NO NEW IV FLUID ORDERS FOR HER. WILL CONTINUE TO MONITOR.
[2020-03-20 12:39] LABS: BASOPHILS % (AUTO) 0.4 % (0.0-2.0); EOSINOPHILS % (AUTO) 2.4 % (0.0-6.0); HEMATOCRIT 27 % (33-45); HEMOGLOBIN 8.2 g/dL (11.5-14.8); LYMPHOCYTES # (AUTO) 0.4 /CMM (0.8-4.8); LYMPHOCYTES % (AUTO) 9.2 % (20.0-44.0); MEAN CORPUSCULAR HGB CONC 31 g/dl (31.0-36.0); MEAN CORPUSCULAR VOLUME 96 fL (82-100); MONOCYTES # (AUTO) 0.3 /CMM (0.1-1.30); MONOCYTES % (AUTO) 7.4 % (2.0-12.0); NEUTROPHILS # (AUTO) 3.6 /CMM (1.8-8.9); NEUTROPHILS % (AUTO) 80.6 % (43.0-81.0); PLATELET COUNT (AUTO) 111 /CMM (150-450); RED BLOOD CELL COUNT(AUTO) 2.79 MIL/uL (4.0-5.2); WHITE BLOOD COUNT (AUTO) 4.5 K/uL (4.3-11.0)
--- NOTE | 2020-03-20 13:04 | NUR ---
HELD REPAGLINIDE D/T LOW BLOOD SUGAR . WILL CONTINUE TO MONITOR.
--- NOTE | 2020-03-20 13:28 | NUR ---
BLOOD SUGAR RECHECKED IS NOW 67 WILL CONTINUE TO MONITOR BLOOD SUGAR.
[2020-03-20 14:58] LABS: ALANINE AMINOTRANSFERASE 10 U/L (12-78); ALBUMIN 3.4 g/dL (3.4-5.0); ALKALINE PHOSPHATASE 84 U/L (46-116); ASPARTATE AMINOTRANSFERASE 13 U/L (15-37); BILIRUBIN,TOTAL 0.6 mg/dL (0.2-1.0); CALCIUM, SERUM 8.5 mg/dL (8.5-10.1); CARBON DIOXIDE 26 mmol/L (21-32); CHLORIDE 106 mmol/L (98-107); CREATININE 1.6 mg/dL (0.6-1.3); MAGNESIUM 1.5 mg/dL (1.8-2.4); PHOSPHORUS 3.8 mg/dL (2.5-4.9); SODIUM SERUM 140 mmol/L (136-145); TOTAL PROTEIN, SERUM 7.2 g/dL (6.4-8.2); UREA NITROGEN, BLOOD 33 mg/dL (7-18)
[2020-03-20 15:11] LABS: GLUCOSE 45 mg/dL (74-106)
--- NOTE | 2020-03-20 15:18 | NUR ---
BLOOD SUGAR CHECKED WAS 41. GAVE ORANGE JUICE AND D5 IV PRN SCHEDULED. WILL CONTINUE TO MONITOR.
[2020-03-20] MEDS: DEXTROSE 50%-WATER 50 ML DISP.SYRIN IV PRN ×3 (15:26→19:14)
--- NOTE | 2020-03-20 16:18 | NUR ---
BLOOD SUGAR WENT UP TO 102. WILL CONTINUE TO MONITOR.
--- NOTE | 2020-03-20 16:30 | NUR ---
PATIENT BLOOD SUGAR WENT DOWN TO 45. GAVE ORANGE JUICE AND D5 IV WILL CONTINUE TO MONITOR.
[2020-03-20] MEDS ORDERED: REPAGLINIDE 2 MG TABLET PO SCH (17:00)
[2020-03-20] MEDS ORDERED: CLOTRIMAZOLE 1% 15 GM TUBE TP SCH (17:00)
--- NOTE | 2020-03-20 19:15 | NUR ---
BLOOD SUGAR CHECKED 112.
--- NOTE | 2020-03-20 19:16 | NUR ---
DOCTOR SHARON IS AWARE OF PATIENT DROP OF BLOOD SUGAR. HE SAID TO ONLY CONTINUE FEEDING AND ORANGE JUICE AND OK TO DISCHARGE TONIGHT.
--- NOTE | 2020-03-20 20:05 | NUR ---
MS RN CLOSING NOTES PATIENT IS A/O X 3 IN BED WITH NO SIGNS OF DISTRESS AND NO SOB IN ROOM AIR. IV L HAND #24G. NO COMPLAIN OF PAIN AT THIS MOMENT. PATIENT KEPT CLEAN AND DRY ALL NEEDS, CARE, TREATMENT AND MEDICATIONS ADMINISTERED ANTICIPATED PER ORDER. SAFETY MEASURES ARE APPLIED BED IS IN LOW AND LOCKED POSITION SIDE RAILS UP X 2 FOR SAFETY. CALL LIGHT WITHIN REACH. DISCHARGE PAPERWORK PRINTED DISCHARGE PICTURES WERE ENDORSED TO THE CURRICULUM AND INSTRUCTION DIRECTOR NURSE FIELD SERVICE ANALYST FROM FAMILY MEMBER AT 2044. WILL ENDORSE TO THE NEXT CURRICULUM AND INSTRUCTION DIRECTOR.
[2020-03-20 21:11] VITALS: BP 99/47
--- NOTE | 2020-03-20 21:30 | NUR ---
SOCK BOARDER NOTES PATIENT LEFT BY PRIVATE VEHICLE. PATIENT IS ALERT AND ORIENTED X 3. BREATHING EVEN AND UNLABORED ON ROOM AIR. SHOWS NO SIGNS OF ACUTE RESPIRATORY DISTRESS, NO ACUTE PAIN. TELE MONITOR A PACING 60'S. IV ON L HAND 24G ITS CLEAN DRY AND SHOWS NO REDNESS, NO INFILTRATION. TAKEN OUT WITH CATHETER INTACT AND ID BAND REMOVED. BELONGINGS CHECKLIST COMPLETED AND DISCHARGE PAPER WORK COMPLETED. NO BELONGINGS MISSING. DISCHARGE TEACHING COMPLETED. SAFETY PRECAUTIONS IN PLACE. WHEELCHAIR DOWNSTAIRS WITH COMMUNITY LIVING INSTRUCTOR.
--- NOTE | 2020-03-20 21:40 | NUR ---
DIRECTOR UNIVERSITY NOTES PATIENT BG WAS 93. WNL BEFORE DISCHARGE
[2020-03-21 15:07] LABS: *SPE ALBUMIN 2.9 g/dL (2.9-4.4); *SPE ALPHA-1-GLOBULIN 0.2 g/dL (0.0-0.4); *SPE ALPHA-2-GLOBULIN 0.6 g/dL (0.4-1.0); *SPE BETA GLOBULIN 0.7 g/dL (0.7-1.3); *SPE GLOBULIN, TOTAL 2.9 g/dL (2.2-3.9); *SPE M-SPIKE Not Observed g/dL (Not Observed); *SPEGAMMA GLOBULIN 1.4 g/dL (0.4-1.8)
== END 2020-03-20 21:25 | disposition home health service (06) | DRG 432 ==
LOC: ER 14:16 → TELE 18:29
PROVIDERS: ADMIT Family Medicine; ATTEND Family Medicine
PROC: 0W9G3ZZ Drainage of Peritoneal Cavity, Percutaneous Approach (ICD-10-PCS; principal; 2020-03-20)
DX: K74.60 Unspecified cirrhosis of liver (principal); N17.0 Acute kidney failure with tubular necrosis; K92.1 Melena; I13.0 Hypertensive heart and chronic kidney disease with heart failure and stage 1 through stage 4 chronic kidney disease, or unspecified chronic kidney disease; D62 Acute posthemorrhagic anemia; G93.1 Anoxic brain damage, not elsewhere classified; R18.8 Other ascites; D61.818 Other pancytopenia; R64 Cachexia; N18.9 Chronic kidney disease, unspecified; E86.0 Dehydration; I95.9 Hypotension, unspecified; M81.0 Age-related osteoporosis without current pathological fracture; I25.10 Atherosclerotic heart disease of native coronary artery without angina pectoris; I25.2 Old myocardial infarction; K21.9 Gastro-esophageal reflux disease without esophagitis; F09 Unspecified mental disorder due to known physiological condition; I48.91 Unspecified atrial fibrillation; E78.5 Hyperlipidemia, unspecified; K29.70 Gastritis, unspecified, without bleeding; D63.8 Anemia in other chronic diseases classified elsewhere; E11.22 Type 2 diabetes mellitus with diabetic chronic kidney disease; E03.9 Hypothyroidism, unspecified; E11.42 Type 2 diabetes mellitus with diabetic polyneuropathy; F03.90 Unspecified dementia, unspecified severity, without behavioral disturbance, psychotic disturbance, mood disturbance, and anxiety; Z95.1 Presence of aortocoronary bypass graft; Z95.0 Presence of cardiac pacemaker; Z91.81 History of falling; Z87.440 Personal history of urinary (tract) infections; Z86.73 Personal history of transient ischemic attack (TIA), and cerebral infarction without residual deficits; Z83.3 Family history of diabetes mellitus; Z82.49 Family history of ischemic heart disease and other diseases of the circulatory system; Z79.51 Long term (current) use of inhaled steroids; Z88.1 Allergy status to other antibiotic agents; Z79.899 Other long term (current) drug therapy; I70.0 Atherosclerosis of aorta; I27.20 Pulmonary hypertension, unspecified; G47.33 Obstructive sleep apnea (adult) (pediatric); E87.5 Hyperkalemia; B35.1 Tinea unguium; R32 Unspecified urinary incontinence; K40.20 Bilateral inguinal hernia, without obstruction or gangrene, not specified as recurrent; K42.9 Umbilical hernia without obstruction or gangrene; R26.9 Unspecified abnormalities of gait and mobility; M19.90 Unspecified osteoarthritis, unspecified site; I08.2 Rheumatic disorders of both aortic and tricuspid valves; M79.7 Fibromyalgia
CPT/HCPCS: 36415; 71045-TC; 76705-TC; 76942-TC; 80048-TC; 80053-TC; 80076-TC; 81000-TC; 82436-TC; 82728-TC; 82962-TC; 83540-TC; 83690-TC; 83735-TC; 83935-TC; 84100-TC; 84133-TC; 84155; 84165; 84300-TC; 84443-TC; 85025-TC; 85730-TC; 87081-TC; 94799-TC; 97116-TC; 97530-TC; A4216; A6253; C9803-CS; G0378; J1815; J1940; J2405; J2916; J3490; J7030; J7050; P9047

== ENCOUNTER 2020-04-13 15:03 | Inpatient (IN) | payer MEDICARE, OTHER ==
[~2020-04-13] VITALS: Ht 152.4 cm; Wt 77.6 kg
[~2020-04-13 15:03] MED LIST changes: +ACET325T53 PO; +BUME1TAB8 PO; -ENAL2.5T PO; +ENAL2.5T17 PO; +PROP10TA68 PO; +ZOLP5TAB2 PO
--- NOTE | 2020-04-13 15:23 | NUR ---
DAVY FROM HOME TO ER BED 7. AAOX4. NOT IN RESP DISTRESS. AMBULATORY BROUGHT IN FOPR ABDOMINAL DISTENTION AND PAIN. PT HAS BEEN HERE FOR THE SAME REASON. NOTED GLOBULAR SHAPED DISTENTED ABDOMEN. SHE REPORT DIFFICULT TO BREATH D/T THE DISTENSION. AWAITING MD FOR EVAL.
--- NOTE | 2020-04-13 16:10 | NUR ---
iv line established. blood drawn and sent to lab
--- NOTE | 2020-04-13 16:32 | NUR ---
PT IN BED ASLEEP. EASILY AROUSABLE AND VERBALLY RESPONSIVE. ABLE TO FOLLOW COMMANDS
[2020-04-13 16:34] LABS: BASOPHILS # (AUTO) 0.1 /CMM (0.0-0.2); BASOPHILS % (AUTO) 1.5 % (0.0-2.0); EOSINOPHILS % (AUTO) 2.8 % (0.0-6.0); HEMATOCRIT 24 % (33-45); HEMOGLOBIN 7.6 g/dL (11.5-14.8); LYMPHOCYTES # (AUTO) 0.4 /CMM (0.8-4.8); LYMPHOCYTES % (AUTO) 11.6 % (20.0-44.0); MEAN CORPUSCULAR HGB CONC 31 g/dl (31.0-36.0); MEAN CORPUSCULAR VOLUME 97 fL (82-100); MONOCYTES # (AUTO) 0.2 /CMM (0.1-1.30); MONOCYTES % (AUTO) 6.1 % (2.0-12.0); NEUTROPHILS # (AUTO) 2.7 /CMM (1.8-8.9); PLATELET COUNT (AUTO) 101 /CMM (150-450); RED BLOOD CELL COUNT(AUTO) 2.51 MIL/uL (4.0-5.2); WHITE BLOOD COUNT (AUTO) 3.5 K/uL (4.3-11.0)
--- NOTE | 2020-04-13 16:51 | NUR ---
offered to collect a urine. pt unable to give at this time
[2020-04-13 16:54] LABS: SERUM AMMONIA 51 umol/L (11-32)
[2020-04-13 17:01] LABS: ALANINE AMINOTRANSFERASE 9 U/L (12-78); ALBUMIN 2.8 g/dL (3.4-5.0); ALKALINE PHOSPHATASE 126 U/L (46-116); ASPARTATE AMINOTRANSFERASE 11 U/L (15-37); BILIRUBIN,DIRECT 0.2 mg/dL (0.0-0.2); BILIRUBIN,TOTAL 0.4 mg/dL (0.2-1.0); CALCIUM, SERUM 8.3 mg/dL (8.5-10.1); CARBON DIOXIDE 19 mmol/L (21-32); CHLORIDE 108 mmol/L (98-107); CREATININE 1.6 mg/dL (0.6-1.3); GLUCOSE 164 mg/dL (74-106); LIPASE 145 U/L (73-393); SODIUM SERUM 136 mmol/L (136-145); TOTAL PROTEIN, SERUM 7.1 g/dL (6.4-8.2); UREA NITROGEN, BLOOD 37 mg/dL (7-18)
[2020-04-13 17:05] LABS: POTASSIUM 6.7 mmol/L (3.5-5.1)
[2020-04-13] MEDS ORDERED: SODIUM BICARBONATE SYR 50 MEQ/50 ML DISP.SYRIN ONE (17:11)
[2020-04-13] MEDS ORDERED: INSULIN REGULAR, HUMAN 100 UNIT/ML 10 ML VIAL ONE (17:11)
[2020-04-13] MEDS ORDERED: CALCIUM CHLORIDE 1,000 MG/10 ML DISP.SYRIN ONE (17:11)
[2020-04-13] MEDS ORDERED: FUROSEMIDE 40 MG/4 ML VIAL ONE (17:11)
[2020-04-13] MEDS ORDERED: SODIUM POLYSTYRENE SULFONATE 15 G/60 ML BOTTLE ONE ×3 (17:12→23:42)
[2020-04-13] MEDS ORDERED: DEXTROSE 50%-WATER 50 ML DISP.SYRIN ONE (17:19)
[2020-04-13] MEDS ORDERED: FUROSEMIDE 40 MG/4 ML VIAL IV ONE (17:30)
[2020-04-13] MEDS ORDERED: SODIUM BICARBONATE SYR 50 MEQ/50 ML DISP.SYRIN IV ONE (17:30)
[2020-04-13] MEDS: SODIUM POLYSTYRENE SULFONATE 15 G/60 ML BOTTLE PO ONE (17:30)
[2020-04-13] MEDS ORDERED: CALCIUM CHLORIDE 1,000 MG/10 ML DISP.SYRIN IV ONE (17:30)
[2020-04-13] MEDS ORDERED: INSULIN REGULAR, HUMAN 100 UNIT/ML 10 ML VIAL IV ONE (17:30)
[2020-04-13] MEDS ORDERED: ONDANSETRON HCL/PF 4 MG/2 ML VIAL ONE (17:32)
--- NOTE | 2020-04-13 17:38 | NUR ---
DR HERRERA PAGED THRU HIS CELL
--- NOTE | 2020-04-13 17:48 | NUR ---
PT ALERT AND ABLE TO FOLLOW COMMANDS. NO ACUTE DISTRESS. -NAUSEA, -VOMIT AT THIS TIME.
--- NOTE | 2020-04-13 17:50 | NUR ---
OFFERED TO COLLECT URINE. PT UNABLE TO GIVE AT THIS TIME
[2020-04-13] MEDS ORDERED: DEXTROSE 50%-WATER 50 ML DISP.SYRIN IV ONE (18:00)
[2020-04-13] MEDS ORDERED: ONDANSETRON HCL/PF 4 MG/2 ML VIAL IVP ONE (18:00)
--- NOTE | 2020-04-13 18:05 | NUR ---
offered keyaxelate medication as ordered. explained the medication for. resident still refused
--- NOTE | 2020-04-13 18:25 | NUR ---
CALLED DR HERRERA. TO SPEAKING NOW
--- NOTE | 2020-04-13 18:36 | NUR ---
offered kayexelate. resident still refused
--- NOTE | 2020-04-13 19:11 | NUR ---
pt refused kayexelate medication. MD wells
--- NOTE | 2020-04-13 19:19 | NUR ---
[place] interpreter came to translate. resident states she wants to take medication MN. aware. awaiting for new order
--- NOTE | 2020-04-13 19:41 | NUR ---
COVID SWAB COLLECTED AND SENT TO THE LAB.
--- NOTE | 2020-04-13 20:16 | NUR ---
ICU 253
--- NOTE | 2020-04-13 20:30 | NUR ---
COVID SWAB COLLECTED AND SENT TO THE LAB.
--- NOTE | 2020-04-13 20:31 | NUR ---
TRIED CALLING FOR REPORT, STAFF STATES THAT THE NURSE WILL CALL ME IN 10 MINUTES.
--- NOTE | 2020-04-13 20:40 | NUR ---
REPORT GIVEN TO MICHEL BURK FOR HOMER.
--- NOTE | 2020-04-13 21:21 | NUR ---
PATIENT TAKEN UP TO ICU ASSIGNED ROOM FOR HOMER.
--- NOTE | 2020-04-13 22:00 | NUR ---
agricultural education instructor. initial assessment. pt being admitted in the icu chf. hyperkalemia. pt awake, alert, follow commands. room air sat 99%. no acute distress noted. cardiac cath technologist showing a pacing. iv rt and lt hand 20g. saline lock. will continue to monitor vitals.
[2020-04-13] MEDS ORDERED: SODIUM POLYSTYRENE SULFONATE 15 G/60 ML BOTTLE PO ONE (22:30)
[2020-04-13] MEDS ORDERED: ACETAMINOPHEN 325 MG TABLET PO PRN (22:30)
[2020-04-13 23:00] VITALS: BP 155/58
[2020-04-13] MEDS ORDERED: ALBUMIN 25% 100 ML IV ONE (23:05)
[2020-04-13] MEDS: PANTOPRAZOLE 40 MG VIAL IV SCH (23:06)
[2020-04-13] MEDS: ALBUMIN 25% 25 GM in PREMIX 1 EA IV SCH (23:06)
[2020-04-13 23:15] VITALS: BP 125/62
[2020-04-13 23:30] VITALS: BP 158/62
[2020-04-14] VITALS (33 sets, daily range): BP systolic 113–166; BP diastolic 46–101
--- NOTE | 2020-04-14 | NUR ---
icu staff nurse. incontinent, f/c placed 16 fr with out complication . clear urine draining.
--- NOTE | 2020-04-14 00:22 | NUR ---
rn icu. kayexelate pt refused. explain needs and side effect, pt still refused.
[2020-04-14] MEDS: BLOOD SUGAR DIAGNOSTIC 1 EACH STRIP IN SCH ×5 (00:37→21:48)
--- NOTE | 2020-04-14 01:48 | NUR ---
agricultural equipment mechanic. no changed.,will continue to monitor vitals
--- NOTE | 2020-04-14 01:52 | NUR ---
travel registered nurse nicu. afebrile. will continue to monitor
--- NOTE | 2020-04-14 02:00 | NUR ---
agricultural adviser. blood is not ready.
--- NOTE | 2020-04-14 04:00 | NUR ---
travel registered nurse nicu. am care, ora;l care, bed bath given. linen changed,room air sat 98%. cardiac technologist showing a pacing. afebrile. fc patent. urine draining, hob elevated, npo. for paracentesis am. turn and reposition q2h. will ontinue to monitor vitals
[2020-04-14 05:20] LABS: CALCIUM, SERUM 8.9 mg/dL (8.5-10.1); CARBON DIOXIDE 21 mmol/L (21-32); CHLORIDE 109 mmol/L (98-107); CREATININE 1.6 mg/dL (0.6-1.3); GLUCOSE 116 mg/dL (74-106); SODIUM SERUM 137 mmol/L (136-145); UREA NITROGEN, BLOOD 37 mg/dL (7-18)
[2020-04-14 05:24] LABS: BASOPHILS % (AUTO) 0.3 % (0.0-2.0); EOSINOPHILS % (AUTO) 3.5 % (0.0-6.0); HEMATOCRIT 24 % (33-45); HEMOGLOBIN 7.4 g/dL (11.5-14.8); IRON, SERUM 31 ug/dl (50-175); LYMPHOCYTES # (AUTO) 0.5 /CMM (0.8-4.8); LYMPHOCYTES % (AUTO) 13.7 % (20.0-44.0); MEAN CORPUSCULAR HGB CONC 30 g/dl (31.0-36.0); MEAN CORPUSCULAR VOLUME 98 fL (82-100); MONOCYTES # (AUTO) 0.2 /CMM (0.1-1.30); MONOCYTES % (AUTO) 6.6 % (2.0-12.0); NEUTROPHILS # (AUTO) 2.7 /CMM (1.8-8.9); NEUTROPHILS % (AUTO) 75.9 % (43.0-81.0); PLATELET COUNT (AUTO) 107 /CMM (150-450); RED BLOOD CELL COUNT(AUTO) 2.48 MIL/uL (4.0-5.2); WHITE BLOOD COUNT (AUTO) 3.5 K/uL (4.3-11.0)
[2020-04-14] MEDS ORDERED: ALBUMIN 25% 100 ML IV ONE (05:37)
[2020-04-14] MEDS: ALBUMIN 25% 25 GM in PREMIX 1 EA IV SCH ×3 (05:38→17:34)
--- NOTE | 2020-04-14 06:26 | NUR ---
agricultural equipment mechanic. critical lab called for potassium #7. notified, order received
--- NOTE | 2020-04-14 07:27 | NUR ---
horticultural farm manager. blood transfusion started. during transfusion no complication noted. endorse to day shift RN
[2020-04-14] MEDS ORDERED: SODIUM POLYSTYRENE SULFONATE 15 G/60 ML BOTTLE RC ONE (07:30)
--- NOTE | 2020-04-14 07:31 | NUR ---
AIR QUALITY CONSULTANT. CALLED THE PHARMACY FOR LAYLA MICHAEL
--- NOTE | 2020-04-14 07:35 | NUR ---
TAX COMPLIANCE OFFICER. PT IS NPO FROM [id number]
--- NOTE | 2020-04-14 08:12 | NUR ---
SPOKE WITH RN REGARDING PARACENTESIS, ON HOLD FOR NOW, POTASSIUM HIGH, SHE WILL CALL ORDERING DOCTOR FOR FURTHER INSTRUCTIONS
[2020-04-14] MEDS ORDERED: LACTULOSE 10 G/15 ML UDC (PYXIS) PO PRN (09:00)
[2020-04-14] MEDS: FUROSEMIDE 40 MG/4 ML VIAL IV SCH ×3 (09:22→17:34)
[2020-04-14] MEDS: HYDROCORTISONE 2.5% CREAM 28.4 GM TUBE TP SCH ×2 (10:51→17:35)
[2020-04-14] MEDS ORDERED: ACETAMINOPHEN 325 MG TABLET PO PRN (14:00)
--- NOTE | 2020-04-14 15:04 | NUR ---
WAITING FOR MD THOMAS TO COME TO PERFORM PROCEDURE, I TEXT HIM AGAIN AT 2.30PM NO ANSWER
--- NOTE | 2020-04-14 15:46 | NUR ---
I SPOKE W MD HAYDEN NOW, STILL IN [facility] , DOING PROCEDURES, HE WILL CALL ME AROUND 6 PM FOR THE PROCEDURE AT [place].
[2020-04-14] MEDS ORDERED: BLOOD SUGAR DIAGNOSTIC 1 EACH STRIP IN SCH (17:30)
--- NOTE | 2020-04-14 19:00 | NUR ---
silviculture forester. paracentesis done, 4800 ml drained. will continue to monitor vitals.
--- NOTE | 2020-04-14 19:32 | NUR ---
END OF SHIFT NOTE: PT HAD A FAIRLY UNEVENTFUL SHIFT. PARACENTESIS JUST FINISHED, 5L REMOVED. TOTAL URINE OUTPUT FOR THE SHIFT WAS 2000ML. PT ATE SMALL AMOUNT FOR LUNCH AND DINNER. SMALL BM OF BLACK STICKY STOOL. 1 DOSE OF KAYEXALATE GIVEN SC PER MD ORDERS. 1 UNIT OF PRBC'S FINISHED ON THIS SHIFT, 1 UNIT ON HOLD PER MD ORDERS. PT CHECKED ON HOURLY AND PRN BY NURSING STAFF.
--- NOTE | 2020-04-14 20:00 | NUR ---
agriculture worker. initial assessment. received the pt rest on the bed. awake, alert. follow commands. pt on room air. sat 98%. no acute distress noted. lunchroom monitor showing a pacing. hob elevated. abdomen distended, fc patent. uirine draining. afebrile. will continue to monitor vitals.
[2020-04-14] MEDS: PANTOPRAZOLE 40 MG VIAL IV SCH (22:18)
[2020-04-15] VITALS (8 sets, daily range): BP systolic 113–139; BP diastolic 38–66
--- NOTE | 2020-04-15 | NUR ---
UNDERWATER WELDER. PT IS REMAINING STABLE, NO ACUTE DISTRESS NOTED, WILL CONTINUE TO MONITOR
[2020-04-15] MEDS: ALBUMIN 25% 25 GM in PREMIX 1 EA IV SCH ×2 (00:38→08:35)
--- NOTE | 2020-04-15 04:00 | NUR ---
SANITATION SUPERVISOR. AM CARE, ORAL CARE. BED BATH GIVEN. LINEN CHANGED, DURING SHIFT PT SLEPT WELL. AFEBRILE. VITALS STABLE, FC PATENT, URINE DRAINING. HOB ELEVATED, URN AND REPOSITION Q2H. WILL CONTINUE TO MONITOR VITALS.
[2020-04-15 05:20] LABS: BASOPHILS % (AUTO) 0.4 % (0.0-2.0); EOSINOPHILS % (AUTO) 3.3 % (0.0-6.0); HEMATOCRIT 24 % (33-45); HEMOGLOBIN 7.9 g/dL (11.5-14.8); LYMPHOCYTES # (AUTO) 0.4 /CMM (0.8-4.8); LYMPHOCYTES % (AUTO) 15.2 % (20.0-44.0); MEAN CORPUSCULAR HGB CONC 32 g/dl (31.0-36.0); MEAN CORPUSCULAR VOLUME 90 fL (82-100); MONOCYTES # (AUTO) 0.2 /CMM (0.1-1.30); MONOCYTES % (AUTO) 8.3 % (2.0-12.0); NEUTROPHILS # (AUTO) 1.9 /CMM (1.8-8.9); NEUTROPHILS % (AUTO) 72.8 % (43.0-81.0); PLATELET COUNT (AUTO) 83 /CMM (150-450); RED BLOOD CELL COUNT(AUTO) 2.72 MIL/uL (4.0-5.2); WHITE BLOOD COUNT (AUTO) 2.6 K/uL (4.3-11.0)
--- NOTE | 2020-04-15 05:24 | NUR ---
curriculum and instruction director. transfer the pt to tele room 106. vitals stable.
--- NOTE | 2020-04-15 05:30 | NUR ---
RN OPENING NOTE RECEIVED PT FROM ICU IN STABLE CONDITION.
[2020-04-15 05:35] LABS: ALBUMIN 3.7 g/dL (3.4-5.0); ALKALINE PHOSPHATASE 81 U/L (46-116); ASPARTATE AMINOTRANSFERASE 7 U/L (15-37); BILIRUBIN,TOTAL 0.9 mg/dL (0.2-1.0); CALCIUM, SERUM 8.6 mg/dL (8.5-10.1); CARBON DIOXIDE 23 mmol/L (21-32); CHLORIDE 107 mmol/L (98-107); CREATININE 1.7 mg/dL (0.6-1.3); GLUCOSE 96 mg/dL (74-106); SODIUM SERUM 139 mmol/L (136-145); TOTAL PROTEIN, SERUM 6.9 g/dL (6.4-8.2); UREA NITROGEN, BLOOD 39 mg/dL (7-18)
[2020-04-15 05:45] LABS: ALANINE AMINOTRANSFERASE < 6 U/L (12-78)
--- NOTE | 2020-04-15 05:53 | NUR ---
agricultural equipment test engineer. bed side report given to crow melgar. pt is stable
--- NOTE | 2020-04-15 07:05 | NUR ---
RN OPENING NOTE Received patient asleep in bed appears calm and relaxed. On room air tolerating well no signs of distress. Patient is AO x4 Afghan speaking but understands Upper Sorbian. Patient has L Chest wall pacemaker. Tele reading A-Pacing. Arthur catheter in place draining clear yellow urine by gravity. Has L Hand #20 flushes well and R hand #20 flushes well. Has high potassium aware that patient keeps refusing kayexalate. SP Paracentesis no co pain or discomfort. Safety measures maintained. Call light within reach. Bed locked and on lowest position. Will cont to monitor.
--- NOTE | 2020-04-15 07:16 | NUR ---
RN CLOSING NOTE REPORT GIVEN TO INCOMING SHIFT FOR HOMER, PT IS STABLE.
[2020-04-15] MEDS: BLOOD SUGAR DIAGNOSTIC 1 EACH STRIP IN SCH ×2 (07:43→12:11)
[2020-04-15] MEDS: HYDROCORTISONE 2.5% CREAM 28.4 GM TUBE TP SCH (08:34)
--- NOTE | 2020-04-15 10:00 | NUR ---
PATIENT HAD 2 LARGE BOWEL MOVEMENT IN BEDSIDE COMMODE ASSISTED BY TEMPLATE MAKER. WENT BACK TO BED NO CO SHORTNESS OF BREATH.
--- NOTE | 2020-04-15 13:37 | NUR ---
PATIENT SIGNED DISCHARGE FORM AND BELONGINGS. REMOVED MEJIA CATHETER TOLERATED WELL. WILL MONITOR FOR URINE OUTPUT. LEFT A MESSAGE TO DMITRY SALDIVAR FOR PICKUP.
--- NOTE | 2020-04-15 14:00 | NUR ---
PATIENT REFUSED TO HAVE PICTURES TAKEN FOR DISCHARGE
--- NOTE | 2020-04-15 14:39 | NUR ---
PATIENT WAS PREPARED FOR DISCHARGE. REMOVED IV TOLERATED WELL NO SIGNS OF BLEEDING. PATIENT WAS WHEELED TO THE MAIN LOBBY ACCOMPANIED BY DRIVABILITY TECHNICIAN WITH BELONGINGS AND PAPERWORK.
== END 2020-04-15 15:03 | disposition home health service (06) | DRG 306 ==
LOC: ER 15:08 → ICU 20:19 → TELE1 04-15 05:26
PROVIDERS: ADMIT Family Medicine; ATTEND Family Medicine
PROC: 30233P1 Transfusion of Nonautologous Frozen Red Cells into Peripheral Vein, Percutaneous Approach (ICD-10-PCS; principal; 2020-04-14)
PROC: 0W9G3ZZ Drainage of Peritoneal Cavity, Percutaneous Approach (ICD-10-PCS; 2020-04-14)
DX: I07.1 Rheumatic tricuspid insufficiency (principal); N17.0 Acute kidney failure with tubular necrosis; R64 Cachexia; R18.8 Other ascites; N39.0 Urinary tract infection, site not specified; I13.0 Hypertensive heart and chronic kidney disease with heart failure and stage 1 through stage 4 chronic kidney disease, or unspecified chronic kidney disease; G93.1 Anoxic brain damage, not elsewhere classified; D61.818 Other pancytopenia; I48.92 Unspecified atrial flutter; E87.5 Hyperkalemia; I25.2 Old myocardial infarction; Z86.73 Personal history of transient ischemic attack (TIA), and cerebral infarction without residual deficits; K21.9 Gastro-esophageal reflux disease without esophagitis; F09 Unspecified mental disorder due to known physiological condition; E78.5 Hyperlipidemia, unspecified; K29.70 Gastritis, unspecified, without bleeding; G62.9 Polyneuropathy, unspecified; I25.10 Atherosclerotic heart disease of native coronary artery without angina pectoris; Z95.1 Presence of aortocoronary bypass graft; Z95.0 Presence of cardiac pacemaker; I05.0 Rheumatic mitral stenosis; F03.90 Unspecified dementia, unspecified severity, without behavioral disturbance, psychotic disturbance, mood disturbance, and anxiety; I35.0 Nonrheumatic aortic (valve) stenosis; I50.9 Heart failure, unspecified; I27.20 Pulmonary hypertension, unspecified; M19.90 Unspecified osteoarthritis, unspecified site; M79.7 Fibromyalgia; G89.29 Other chronic pain; M54.5 Low back pain; M81.0 Age-related osteoporosis without current pathological fracture; E03.9 Hypothyroidism, unspecified; D50.9 Iron deficiency anemia, unspecified; E86.0 Dehydration; I95.9 Hypotension, unspecified; Z68.33 Body mass index [BMI] 33.0-33.9, adult; K74.60 Unspecified cirrhosis of liver; Z87.440 Personal history of urinary (tract) infections; R32 Unspecified urinary incontinence; N18.9 Chronic kidney disease, unspecified; K40.20 Bilateral inguinal hernia, without obstruction or gangrene, not specified as recurrent; K42.9 Umbilical hernia without obstruction or gangrene; Z91.81 History of falling; B35.1 Tinea unguium; R15.9 Full incontinence of feces; I73.9 Peripheral vascular disease, unspecified; F32.9 Major depressive disorder, single episode, unspecified; E11.22 Type 2 diabetes mellitus with diabetic chronic kidney disease; I48.91 Unspecified atrial fibrillation
CPT/HCPCS: 36415; 71045-TC; 76942-TC; 80048-TC; 80053-TC; 80076-TC; 82140-TC; 82962-TC; 83540-TC; 83605-TC; 83690-TC; 83735-TC; 83880; 84484-TC; 85025-TC; 85610-TC; 86850-TC; 87040-TC; 87081-TC; A4216; C9113; G0378; J1815; J1940; J2405; J3490; J7050; P9016-BL; P9047; U0003-CS

== ENCOUNTER 2020-05-05 09:44 | Inpatient (IN) | payer MEDICARE, OTHER ==
[~2020-05-05] VITALS: Ht 157.5 cm; Wt 76.0 kg
[~2020-05-05 09:44] MED LIST changes: -FERR325T23 PO; -PROP10TA10 PO; -ZOLP5TAB8 PO
[2020-05-05] MEDS ORDERED: IV NS 0.9% 500 ML BAG IV ONE (10:00)
[2020-05-05] MEDS ORDERED: MORPHINE SULFATE INJ 2 MG/ML DISP.SYRIN IV ONE (10:00)
[2020-05-05] MEDS ORDERED: ONDANSETRON HCL/PF 4 MG/2 ML VIAL IVP ONE (10:00)
[2020-05-05] MEDS ORDERED: FURO20TA4 PO (10:05)
[2020-05-05] MEDS ORDERED: MORPHINE SULFATE INJ 4 MG/ML DISP.SYRIN ONE (10:23)
[2020-05-05] MEDS ORDERED: ONDANSETRON HCL/PF 4 MG/2 ML VIAL ONE ×2 (10:23→14:58)
--- NOTE | 2020-05-05 10:35 | NUR ---
PT REC'D TO [facility] SPEAKS FARSI PT VOMIITTING ABD PAIN FOR ONW DAY RM KATIANA CLAY
--- NOTE | 2020-05-05 10:35 | NUR ---
LARGE BM CLEANED AND DIAPERED . IV STARTED 20G RT HAND LANS DRAWN SENT TO LAB MEDS GIVEN PER MD ORDER
[2020-05-05 10:51] LABS: BASOPHILS # (AUTO) 0.1 /CMM (0.0-0.2); BASOPHILS % (AUTO) 0.3 % (0.0-2.0); EOSINOPHILS % (AUTO) 0.2 % (0.0-6.0); HEMATOCRIT 32 % (33-45); HEMOGLOBIN 9.8 g/dL (11.5-14.8); LYMPHOCYTES # (AUTO) 0.9 /CMM (0.8-4.8); LYMPHOCYTES % (AUTO) 4.6 % (20.0-44.0); MEAN CORPUSCULAR HGB CONC 30 g/dl (31.0-36.0); MEAN CORPUSCULAR VOLUME 96 fL (82-100); MONOCYTES # (AUTO) 1.1 /CMM (0.1-1.30); MONOCYTES % (AUTO) 5.4 % (2.0-12.0); NEUTROPHILS # (AUTO) 17.6 /CMM (1.8-8.9); NEUTROPHILS % (AUTO) 89.5 % (43.0-81.0); PLATELET COUNT (AUTO) 149 /CMM (150-450); RED BLOOD CELL COUNT(AUTO) 3.38 MIL/uL (4.0-5.2); WHITE BLOOD COUNT (AUTO) 19.7 K/uL (4.3-11.0)
[2020-05-05 10:55] LABS: CARBON DIOXIDE 18 mmol/L (21-32); CHLORIDE 108 mmol/L (98-107); CREATININE 1.9 mg/dL (0.6-1.3); GLUCOSE 179 mg/dL (74-106); SODIUM SERUM 136 mmol/L (136-145); UREA NITROGEN, BLOOD 42 mg/dL (7-18)
[2020-05-05 10:57] LABS: POTASSIUM 7.5 mmol/L (3.5-5.1)
[2020-05-05 10:59] LABS: ALANINE AMINOTRANSFERASE 14 U/L (12-78); ALBUMIN 3.4 g/dL (3.4-5.0); ALKALINE PHOSPHATASE 140 U/L (46-116); ASPARTATE AMINOTRANSFERASE 24 U/L (15-37); BILIRUBIN,DIRECT 0.7 mg/dL (0.0-0.2); BILIRUBIN,TOTAL 1.4 mg/dL (0.2-1.0); LIPASE 188 U/L (73-393)
[2020-05-05] MEDS ORDERED: CALCIUM CHLORIDE 1,000 MG/10 ML DISP.SYRIN ONE (11:26)
[2020-05-05] MEDS ORDERED: SODIUM POLYSTYRENE SULFONATE 15 G/60 ML BOTTLE ONE (11:26)
[2020-05-05] MEDS ORDERED: SODIUM BICARBONATE SYR 50 MEQ/50 ML DISP.SYRIN ONE (11:26)
[2020-05-05] MEDS ORDERED: DEXTROSE 50%-WATER 50 ML DISP.SYRIN ONE (11:26)
[2020-05-05] MEDS ORDERED: INSULIN REGULAR, HUMAN 100 UNIT/ML 10 ML VIAL ONE (11:28)
[2020-05-05] MEDS ORDERED: SODIUM BICARBONATE SYR 50 MEQ/50 ML DISP.SYRIN IV ONE (11:30)
[2020-05-05] MEDS ORDERED: DEXTROSE 50%-WATER 50 ML DISP.SYRIN IV ONE (11:30)
[2020-05-05] MEDS ORDERED: SODIUM POLYSTYRENE SULFONATE 15 G/60 ML BOTTLE PO ONE (11:30)
[2020-05-05] MEDS ORDERED: INSULIN REGULAR, HUMAN 100 UNIT/ML 10 ML VIAL IV ONE (11:30)
[2020-05-05] MEDS ORDERED: CALCIUM CHLORIDE 1,000 MG/10 ML DISP.SYRIN IV ONE (11:30)
--- NOTE | 2020-05-05 11:41 | NUR ---
pt k+ is 7.0 dex 50% and insulin 10 units , sodum barcarb ca+ alll given per md order robert 30 g ud given pt on bedpan cont to monitor
--- NOTE | 2020-05-05 12:10 | NUR ---
iv restarted left hand 20g iv
--- NOTE | 2020-05-05 12:28 | NUR ---
PAGED DR. HERRERA.
[2020-05-05] MEDS ORDERED: PIPERACILLIN /TAZOBACTAM 3.375 G in IV D5W 50 ML IV ONE (12:30)
[2020-05-05] MEDS ORDERED: ALBUMIN 25% 100 ML IV ONE (12:30)
[2020-05-05] MEDS ORDERED: ALBUMIN 25% 12.5 GM/50 ML BOTTLE IV ONE (12:30)
--- NOTE | 2020-05-05 12:48 | NUR ---
UA SENT TO LAB ZOSYAlyssa GIVEN PER MD ORDER
[2020-05-05 12:57] LABS: APPEARANCE,URINE CLEAR (CLEAR); BILIRUBIN,URINE MODERATE (NEGATIVE); BLOOD, URINE MODERATE Ery/uL (NEGATIVE); COLOR,URINE DARK YELLO (YELLOW); KETONES,URINE TRACE (NEGATIVE); LEUKOCYTE ESTERASE ,URINE MODERATE (NEGATIVE); NITRITE, URINE NEGATIVE (NEGATIVE); PROTEIN,URINE >=300 mg/dl (NEGATIVE); UGLUCOSE NEGATIVE (NEGATIVE)
--- NOTE | 2020-05-05 13:07 | NUR ---
CALLED NURSING SUP FOR TELE BED.
[2020-05-05 13:17] LABS: BACTERIA,URINE Many /HPF (None Seen); SQUAMOUS EPITHELIAL CELL,UR Few /HPF (None Seen); WBC,URINE TOO NUMEROUS TO COUN /HPF (0-3)
--- NOTE | 2020-05-05 15:02 | NUR ---
PTS GRANDSON (DEBBI) CALLED, PROVIDED GRANDSON WITH UPDATE REGARDING PTS CURRENT CONDITION.
--- NOTE | 2020-05-05 15:44 | NUR ---
PT STABLE FOR TRANSFER REPORT GIVEN TO FLOOR
--- NOTE | 2020-05-05 15:45 | NUR ---
DEMURRAGE MAN NOTES RECEIVED PT FROM E.R. STAFF VIA LIDIA, PT IS AWAKE, ALERT AND VERBALLY RESPONSIVE, NO COMPLAINT OF PAIN AT THIS TIME, RESPIRATIONS NORMAL, NOTED WITH DISTENDED ABDOMEN, ASSISTED TO BED, MADE COMFORTABLE, KEPT HOB ELEVATED, ROOM SET UP ORIENTATION PROVIDED TO PT. VERBALIZED UNDERSTANDING, AWAITING ADMITTING ORDERS FROM .
[2020-05-05 16:00] VITALS: BP 111/59
[2020-05-05] MEDS ORDERED: ACETAMINOPHEN 325 MG TABLET PO PRN (18:30)
[2020-05-05] MEDS ORDERED: hydrALAZINE HCL 25 MG TABLET PO PRN (18:30)
[2020-05-05] MEDS ORDERED: NA PHOS,M-B/NA PHOS,DI-BA 1 EA ENEMA RC ONE ×2 (18:30→22:30)
--- NOTE | 2020-05-05 19:00 | NUR ---
EMERGENCY COMMUNICATIONS OFFICER NOTES PT IN BED, AWAKE, ALERT AND ORIENTED, NOT IN DISTRESS, NO COMPLAINT AT THIS TIME, ADMITTING ORDERS RECEIVED FROM DR. HERRERA, PM MEDS GIVEN, PM CARE PROVIDED, ALL NEEDS ATTENDED.
--- NOTE | 2020-05-05 19:05 | NUR ---
RECEIVED PT ON BED ASLEEP EASY TO WAKE UP TELE MONITOR READS A PACING WITH CONTROLLED AFIB 70'S PT ON O2 VIA NC AT 2L SPO2 100% SAFETY MEASURE MAINTAINED BED ON LOWEST POSITION AND LOCKED SIDE RAILS UP X2 CALL LIGHT WITHIN REACH WILL CONT TO MONITOR Addendum: 05/06/20 at 0058 by CYNTHIA NORTON RN DISTENDED AND FIRM ABDOMEN ALSO NOTED
[2020-05-05 20:00] VITALS: BP_SYST 107; BP_DIAS 46; BP_DIAS 60
[2020-05-05] MEDS ORDERED: ALBUMIN 25% 25 GM in PREMIX 1 EA IV SCH (20:00)
[2020-05-05] MEDS ORDERED: PROPRANOLOL HCL 10 MG TABLET PO SCH (21:00)
[2020-05-06] VITALS (7 sets, daily range): BP systolic 96–122; BP diastolic 38–64
[2020-05-06 06:35] LABS: BASOPHILS % (AUTO) 0.3 % (0.0-2.0); HEMATOCRIT 26 % (33-45); HEMOGLOBIN 7.8 g/dL (11.5-14.8); LYMPHOCYTES # (AUTO) 0.3 /CMM (0.8-4.8); LYMPHOCYTES % (AUTO) 6.4 % (20.0-44.0); MEAN CORPUSCULAR HGB CONC 31 g/dl (31.0-36.0); MEAN CORPUSCULAR VOLUME 95 fL (82-100); MONOCYTES # (AUTO) 0.3 /CMM (0.1-1.30); MONOCYTES % (AUTO) 6.3 % (2.0-12.0); NEUTROPHILS # (AUTO) 3.9 /CMM (1.8-8.9); WHITE BLOOD COUNT (AUTO) 4.6 K/uL (4.3-11.0)
[2020-05-06 06:53] LABS: PLATELET COUNT (AUTO) 87 /CMM (150-450)
[2020-05-06 06:58] LABS: CALCIUM, SERUM 8.9 mg/dL (8.5-10.1); CARBON DIOXIDE 17 mmol/L (21-32); CHLORIDE 111 mmol/L (98-107); CREATININE 2.4 mg/dL (0.6-1.3); GLUCOSE 133 mg/dL (74-106); MAGNESIUM 2.3 mg/dL (1.8-2.4); SODIUM SERUM 140 mmol/L (136-145); UREA NITROGEN, BLOOD 47 mg/dL (7-18)
--- NOTE | 2020-05-06 06:58 | NUR ---
PT ON BED RESTING NO SIGN AND SYMPTOMS OF RESPIRATORY DISTRESS NO COMPLAINT OF PAIN,DISTENDED ABDOMEN STILL NOTED, TELE MONITOR READS CONTROLLED AFBIB WITH A PACING, NO SIGNIFICANT CHANGES ON CONDITION NOTED ALL NEEDS ATTENDED SAFETY MEASURE MAINTAINED BED ON LOWEST POSITION AND LOCKED WILL ENDORSE TO AM SHIFT NURSE
--- NOTE | 2020-05-06 07:29 | NUR ---
SILL WORKER NOTES PATIENT RECEIVED IN BED SLEEPING, EASILY AWAKEN BY NAME AND LIGHT TOUCH. ALERT AND ORIENTED X 3, FRENCH SPEAKING. ON NASAL CANNULA, 2L WITH NO SIGNS OF RESPIRATORY DISTRESS WITH EVEN NON-LABORED BREATHING, AND NO SIGNS OF RESPIRATORY DISTRESS AT THIS TIME. ON TIRE STRIPPER, A-PACING 63. IV ACCESS INTACT AND PATENT, SKIN WARM AND DRY TO TOUCH. SAFETY PRECAUTIONS IMPLEMENTED WITH BED LOCKED, BED IN THE LOWEST POSITION, BILATERAL SIDE RAILS UP, BED ALARM ON, AND CALL LIGHT WITHIN EASY REACH OF PATIENT. WILL CONTINUE TO MONITOR PATIENT.
[2020-05-06] MEDS ORDERED: PANTOPRAZOLE 40 MG TABLET.DR PO SCH (07:30)
[2020-05-06 07:33] LABS: IRON, SERUM 14 ug/dl (50-175)
[2020-05-06 07:35] LABS: THYROID STIMULATING HORMONE 2.283 uIU/mL (0.358-3.74)
[2020-05-06 07:46] LABS: TOTAL IRON BINDING CAPACITY < 36 ug/dl (250-450)
[2020-05-06] MEDS: FOLIC ACID 1 MG TABLET PO SCH (08:23)
[2020-05-06] MEDS: LEVOTHYROXINE SODIUM 125 MCG TABLET PO SCH (08:23)
[2020-05-06] MEDS: AMLODIPINE BESYLATE 5 MG TABLET PO SCH (08:39)
[2020-05-06] MEDS ORDERED: MECLIZINE HCL 25 MG TABLET PO PRN (09:00)
[2020-05-06] MEDS ORDERED: FUROSEMIDE 20 MG TABLET PO SCH (09:00)
[2020-05-06] MEDS ORDERED: SODIUM POLYSTYRENE SULFONATE 15 G/60 ML BOTTLE RC ONE ×2 (10:00→19:30)
[2020-05-06] MEDS: ALBUMIN 25% 25 GM in PREMIX 1 EA IV SCH ×2 (11:02→17:07)
[2020-05-06] MEDS ORDERED: OCTREOTIDE 1,250 MCG in IV NS 0.9% 247.5 ML IV PRN (12:00)
[2020-05-06] MEDS ORDERED: OCTREOTIDE 50 MCG in IV NS 0.9% 50 ML IJ ONE (12:00)
[2020-05-06] MEDS: MUPIROCIN OINT 2% 22 GM TUBE TP SCH ×2 (12:26→20:19)
[2020-05-06] MEDS: HYDROCORTISONE OINT 1% 28.35 GM TUBE TP SCH ×2 (12:27→20:20)
[2020-05-06] MEDS: SOD FERRIC GLUC 125 MG in IV NS 0.9% 100 ML IV SCH (14:03)
[2020-05-06] MEDS ORDERED: IV NS 0.9% 1,000 ML IV PRN (16:00)
--- NOTE | 2020-05-06 16:20 | NUR ---
PATHOLOGY SECRETARY/TRANSCRIPTIONIST NOTES INFORMED DR. HERRERA ABOUT ROMANARELI HOLLOWAY ORDER OF NORMAL SALINE AT 75ml/hr. PER OKAY TO GIVE FLUIDS IF BLOOD PRESSURE, SBP, LESS THAN 100. WILL CONTINUE TO MONITOR PATIENT AT THIS TIME.
[2020-05-06] MEDS: MISOPROSTOL 100 MCG TABLET PO SCH ×2 (17:06→20:18)
--- NOTE | 2020-05-06 18:23 | NUR ---
CERTIFIED WELLNESS PROGRAM COORDINATOR NOTES PATIENT IN BED, RESTING COMFORTABLY, ALERT AND ORIENTED X 3, NICARAGUAN SPEAKING. PATIENT ON NASAL CANNULA 2 LITERS, WITH NO SIGNS OF RESPIRATORY DISTRESS WITH EVEN NON-LABORED BREATHING, NO SOB NOTED, AND WITH NON-PRODUCTIVE COUGH. ON EMULSION COATER, A-FIB, 99. PATIENT SKIN KEPT CLEAN WARM, DRY TOUCH, IV ACCESS INTACT AND PATENT. PATIENT PRESENTS WITH NO PAIN OR DISCOMFORT AT THIS TIME. MET ALL OF PATIENT'S NEEDS. SAFETY PRECAUTIONS IMPLEMENTED WITH BED LOCKED, BED IN THE LOWEST POSITION, BILATERAL SIDE RAILS UP, BED ALARM ON, AND CALL LIGHT WITHIN EASY REACH OF PATIENT. WILL ENDORSE PLAN OF CARE TO UPCOMING RN.
[2020-05-06 18:49] LABS: CALCIUM, SERUM 8.7 mg/dL (8.5-10.1); CARBON DIOXIDE 19 mmol/L (21-32); CHLORIDE 105 mmol/L (98-107); CREATININE 2.8 mg/dL (0.6-1.3); GLUCOSE 228 mg/dL (74-106); SODIUM SERUM 134 mmol/L (136-145); UREA NITROGEN, BLOOD 46 mg/dL (7-18)
[2020-05-06] MEDS: ONDANSETRON HCL/PF 4 MG/2 ML VIAL IV PRN (18:50)
--- NOTE | 2020-05-06 19:10 | NUR ---
residential recycle driver opening notes Received Pt from morning nurse. Pt is resting in bed comfortably. Ptb is alert and orientedX3. Pt speaks Welsh and able to make needs known. Respiration is normal in 2 L NC. No SOB. No S/S of distress noted. Tele monitor showed afib HR at 103 bpm. IV sites at L hand #20 is clean, intact and infusing well sandostatin. IV sites at R hand # 22 is clean, intact and flush well, SL. Safety precautions is maintained. Bed at low position, brakes locked, side rails upX2, HOB elevated, and call light is within reach. Will continue to monitor.
[2020-05-06 19:54] LABS: BASOPHILS % (AUTO) 0.3 % (0.0-2.0); EOSINOPHILS % (AUTO) 3.6 % (0.0-6.0); HEMATOCRIT 28 % (33-45); HEMOGLOBIN 8.4 g/dL (11.5-14.8); LYMPHOCYTES # (AUTO) 0.4 /CMM (0.8-4.8); LYMPHOCYTES % (AUTO) 8.9 % (20.0-44.0); MEAN CORPUSCULAR HGB CONC 31 g/dl (31.0-36.0); MEAN CORPUSCULAR VOLUME 96 fL (82-100); MONOCYTES # (AUTO) 0.2 /CMM (0.1-1.30); MONOCYTES % (AUTO) 6.1 % (2.0-12.0); NEUTROPHILS # (AUTO) 3.2 /CMM (1.8-8.9); NEUTROPHILS % (AUTO) 81.1 % (43.0-81.0); PLATELET COUNT (AUTO) 90 /CMM (150-450); RED BLOOD CELL COUNT(AUTO) 2.87 MIL/uL (4.0-5.2)
--- NOTE | 2020-05-06 20:00 | NUR ---
forming roll operator heavy duty notes Went down to nursing building cleaning supervisor to get elidiate.
[2020-05-06 20:18] LABS: CREATININE, URINE 152.1 MG/DL (30.0-125.0); URINE TOTAL PROTEIN 141.4 mg/dL (0-11.9)
[2020-05-06] MEDS ORDERED: SODIUM POLYSTYRENE SULFONATE 15 G/60 ML BOTTLE ONE (20:20)
[2020-05-06 20:21] LABS: APPEARANCE,URINE SL CLOUDY (CLEAR); BILIRUBIN,URINE SMALL (NEGATIVE); BLOOD, URINE MODERATE Ery/uL (NEGATIVE); COLOR,URINE YELLOW (YELLOW); KETONES,URINE TRACE (NEGATIVE); LEUKOCYTE ESTERASE ,URINE MODERATE (NEGATIVE); NITRITE, URINE NEGATIVE (NEGATIVE); PROTEIN,URINE 100 mg/dl (NEGATIVE); UGLUCOSE NEGATIVE (NEGATIVE); UROBILINOGEN,URINE 0.2 EU/dL (0.2)
--- NOTE | 2020-05-06 20:22 | NUR ---
pet caretaker notes Received kayexalate 60 g from nursing canvas goods supervisor.
[2020-05-06 20:28] LABS: BAND % (MANUAL) 1 % (0.0-5.0); EOSINOPHILS % (MANUAL) 1 % (0-4); LYMPHOCYTES % (MANUAL) 18 % (16-48); MONOCYTES % (MANUAL) 6 % (0-11.0); NEUTROPHILS % (MANUAL) 74 (42-76)
[2020-05-06 21:02] LABS: BACTERIA,URINE 4+ /HPF (None Seen); SQUAMOUS EPITHELIAL CELL,UR 0-2 /HPF (None Seen); WBC,URINE 51-80 /HPF (0-3)
[2020-05-06 21:05] LABS: EOSINOPHIL,URINE None Seen
--- NOTE | 2020-05-06 23:00 | NUR ---
machined parts quality inspector notes Pt's son named Darrion called and asked about Pt's condition. Pt is stable, afebrile. No SOB. No S/s of distress noted. Informed Pt about blood transfusion consent. Pt's son explained to Pt. Pt signed blood transfusion consent and verbalize understanding. Pt's son appreciate the info. Will continue to monitor.
[2020-05-07] VITALS (11 sets, daily range): BP systolic 103–147; BP diastolic 58–79
[2020-05-07] MEDS: OCTREOTIDE 500 MCG in IV NS 0.9% 99 ML IV PRN ×3 (00:32→21:32)
[2020-05-07] MEDS: ALBUMIN 25% 25 GM in PREMIX 1 EA IV SCH ×3 (01:45→19:00)
--- NOTE | 2020-05-07 06:38 | NUR ---
exterminator notes Received a phone call from pharmacy. Per Pharmacy stated to replace sandostatin to a new bag at 0800. Charge nurse is aware and informed.
--- NOTE | 2020-05-07 06:50 | NUR ---
speech and hearing director closing notes Pt is resting in bed comfortably. Pt is alert and orientedX3. Respiration is normal in 2 L NC. No SOB. No S/S of distress noted. Tele monitor showed afib HR at 93 bpm. VS is stable. Afebrile. Routine meds were given as ordered. IV sites at L hand #20 is clean, intact and infusing well sandostatin. IV sites at R hand # 22 is clean, intact and flush well, SL. All needs met and attended. Safety precautions is maintained. Bed at low position, brakes locked, side rails upX2, HOB elevated, and call light is within reach. Will endorse to morning nurse for HOMER.
[2020-05-07 07:13] LABS: BASOPHILS % (AUTO) 0.4 % (0.0-2.0); EOSINOPHILS % (AUTO) 4.2 % (0.0-6.0); HEMATOCRIT 24 % (33-45); HEMOGLOBIN 7.2 g/dL (11.5-14.8); LYMPHOCYTES # (AUTO) 0.4 /CMM (0.8-4.8); LYMPHOCYTES % (AUTO) 9.4 % (20.0-44.0); MEAN CORPUSCULAR HGB CONC 30 g/dl (31.0-36.0); MEAN CORPUSCULAR VOLUME 96 fL (82-100); MONOCYTES # (AUTO) 0.2 /CMM (0.1-1.30); MONOCYTES % (AUTO) 6.2 % (2.0-12.0); NEUTROPHILS # (AUTO) 3.1 /CMM (1.8-8.9); NEUTROPHILS % (AUTO) 79.8 % (43.0-81.0); PLATELET COUNT (AUTO) 74 /CMM (150-450); RED BLOOD CELL COUNT(AUTO) 2.55 MIL/uL (4.0-5.2); WHITE BLOOD COUNT (AUTO) 3.9 K/uL (4.3-11.0)
--- NOTE | 2020-05-07 07:35 | NUR ---
PROCESS ENG NOTES PATIENT RECEIVED IN BED SLEEPING, EASILY AWAKEN BY NAME AND LIGHT TOUCH. ALERT AND ORIENTED X 3, SLOVENIAN SPEAKING. ON NASAL CANNULA, 2L WITH NO SIGNS OF RESPIRATORY DISTRESS WITH EVEN NON-LABORED BREATHING, AND NO SOB NOTED. ON CRYSTALLOGRAPHER, A-FIB 80'S. IV ACCESS INTACT AND PATENT, ON RIGHT HAND CURRENTLY INFUSING SANDOSTATIN AT 50mcg/hr, AND LEFT HAND SALINE LOCK. SKIN WARM AND DRY TO TOUCH. SAFETY PRECAUTIONS IMPLEMENTED WITH BED LOCKED, BED IN THE LOWEST POSITION, BILATERAL SIDE RAILS UP, BED ALARM ON, AND CALL LIGHT WITHIN EASY REACH OF PATIENT. WILL CONTINUE TO MONITOR PATIENT.
[2020-05-07 07:44] LABS: IRON, SERUM 50 ug/dl (50-175); TOTAL IRON BINDING CAPACITY 147 ug/dl (250-450)
[2020-05-07 07:45] LABS: ALANINE AMINOTRANSFERASE 13 U/L (12-78); ALBUMIN 3.4 g/dL (3.4-5.0); ALKALINE PHOSPHATASE 71 U/L (46-116); ASPARTATE AMINOTRANSFERASE 14 U/L (15-37); BILIRUBIN,TOTAL 0.6 mg/dL (0.2-1.0); CALCIUM, SERUM 8.5 mg/dL (8.5-10.1); CARBON DIOXIDE 17 mmol/L (21-32); CHLORIDE 106 mmol/L (98-107); CREATININE 2.9 mg/dL (0.6-1.3); GLUCOSE 163 mg/dL (74-106); POTASSIUM 5.9 mmol/L (3.5-5.1); SODIUM SERUM 135 mmol/L (136-145); TOTAL PROTEIN, SERUM 6.9 g/dL (6.4-8.2); UREA NITROGEN, BLOOD 48 mg/dL (7-18)
[2020-05-07 07:53] LABS: FERRITIN 267 ng/mL (8-388)
[2020-05-07] MEDS: FOLIC ACID 1 MG TABLET PO SCH (08:09)
[2020-05-07] MEDS: LEVOTHYROXINE SODIUM 125 MCG TABLET PO SCH (08:09)
[2020-05-07] MEDS: MISOPROSTOL 100 MCG TABLET PO SCH ×4 (08:09→20:38)
[2020-05-07] MEDS: PANTOPRAZOLE 40 MG VIAL IV SCH (08:09)
[2020-05-07] MEDS: AMLODIPINE BESYLATE 5 MG TABLET PO SCH (08:10)
[2020-05-07] MEDS: HYDROCORTISONE OINT 1% 28.35 GM TUBE TP SCH ×2 (08:17→20:49)
[2020-05-07] MEDS: MUPIROCIN OINT 2% 22 GM TUBE TP SCH ×2 (08:17→20:49)
[2020-05-07] MEDS ORDERED: HYDROCORTISONE 1% CREAM 28.35 GM TUBE TP SCH (10:05)
--- NOTE | 2020-05-07 10:05 | NUR ---
FASHION INTERN NOTES CALLED DR. HERRERA, INFORMED ABOUT PATIENT'S POTASSIUM LEVEL OF 5.9, ORDERED KAYEXALATE 60g RECTALLY, INFORMED ABOUT PATIENT'S HgB 7.2 and HCT 24, ORDERED 1 UNIT PACKED RBC'S, WILL CARRY OUT ORDERS AND CONTINUE TO MONITOR PATIENT.
[2020-05-07 10:19] LABS: EOSINOPHILS % (MANUAL) 1 % (0-4); LYMPHOCYTES % (MANUAL) 11 % (16-48); MONOCYTES % (MANUAL) 8 % (0-11.0); NEUTROPHILS % (MANUAL) 80 (42-76)
--- NOTE | 2020-05-07 11:15 | NUR ---
CORRUGATOR OPERATOR NOTES PARACENTESIS DONE, 5,700mL, OUTPUT.
[2020-05-07] MEDS ORDERED: SODIUM POLYSTYRENE SULFONATE 15 G/60 ML BOTTLE RC ONE (12:30)
[2020-05-07] MEDS: SOD FERRIC GLUC 125 MG in IV NS 0.9% 100 ML IV SCH (14:51)
--- NOTE | 2020-05-07 15:35 | NUR ---
BOAT CLEANER NOTES CALLED SON, [phone], TO GET CONSENT FORM FOR EGD, INFORMED ABOUT PROCEDURE, PATIENT STATES HE WILL SPEAK TO DR HERRERA ABOUT THIS PROCEDURE AND IS REFUSING TO GIVE CONSENT VIA TELEPHONE. WILL INFORM DR. HERRERA AND CONTINUE TO MONITOR,
--- NOTE | 2020-05-07 16:30 | NUR ---
COMMISSIONER CONSERVATION OF RESOURCES NOTES PAGED DR. HERRERA TO INFORM ABOUT EGD FORM, AND THAT THE SON WILL LIKE TO SPEAK TO HIM ABOUT THE PROCEDURE, WILL AWAIT FOR DR. HERRERA.
--- NOTE | 2020-05-07 18:00 | NUR ---
EDITOR PRODUCER NOTES PATIENT STATING IV ACCESS IS HURTING AND REQUESTING TO REMOVE LINE. REMOVED IV LINE AND APPLIED PRESSURE TO SITE, AND CATHETER TIP INTACT.
--- NOTE | 2020-05-07 19:15 | NUR ---
PRINT PRESS OPERATOR NOTES PATIENT IN BED, RESTING COMFORTABLY, ALERT AND ORIENTED X 3, BRITISH SPEAKING. PATIENT ON NASAL CANNULA 2 LITERS, WITH NO SIGNS OF RESPIRATORY DISTRESS WITH EVEN NON-LABORED BREATHING, NO SOB NOTED, AND WITH NON-PRODUCTIVE COUGH. ON MARKETING PRODUCTION MANAGER, A-FIB, 65. PATIENT SKIN KEPT CLEAN WARM, DRY TOUCH, IV ACCESS INTACT AND PATENT ON LEFT HAND 20 GAUGE, INFUSING BLOOD TRANSFUSION, DENIES ANY PAIN, CHILLS, OR ITCHINESS. PATIENT PRESENTS WITH NO PAIN OR DISCOMFORT AT THIS TIME. MET ALL OF PATIENT'S NEEDS. SAFETY PRECAUTIONS IMPLEMENTED WITH BED LOCKED, BED IN THE LOWEST POSITION, BILATERAL SIDE RAILS UP, BED ALARM ON, AND CALL LIGHT WITHIN EASY REACH OF PATIENT. WILL ENDORSE PLAN OF CARE TO UPCOMING RN.
[2020-05-07] MEDS: ONDANSETRON HCL/PF 4 MG/2 ML VIAL IV PRN (20:38)
[2020-05-07] MEDS: Sodium Bicarbonate 100 MEQ in IV 1/2NS 1000 ML 1,000 ML IV PRN (21:38)
[2020-05-08] VITALS: BP 112/56
[2020-05-08] MEDS: ALBUMIN 25% 25 GM in PREMIX 1 EA IV SCH ×3 (01:32→20:56)
[2020-05-08] MEDS: ONDANSETRON HCL/PF 4 MG/2 ML VIAL IV PRN (03:35)
[2020-05-08 04:09] VITALS: BP 145/64
[2020-05-08 06:52] LABS: BASOPHILS % (AUTO) 0.2 % (0.0-2.0); EOSINOPHILS % (AUTO) 3.9 % (0.0-6.0); HEMATOCRIT 27 % (33-45); HEMOGLOBIN 8.5 g/dL (11.5-14.8); LYMPHOCYTES # (AUTO) 0.4 /CMM (0.8-4.8); LYMPHOCYTES % (AUTO) 10.5 % (20.0-44.0); MEAN CORPUSCULAR HGB CONC 31 g/dl (31.0-36.0); MEAN CORPUSCULAR VOLUME 93 fL (82-100); MONOCYTES # (AUTO) 0.3 /CMM (0.1-1.30); MONOCYTES % (AUTO) 6.8 % (2.0-12.0); NEUTROPHILS % (AUTO) 78.6 % (43.0-81.0); PLATELET COUNT (AUTO) 82 /CMM (150-450); RED BLOOD CELL COUNT(AUTO) 2.95 MIL/uL (4.0-5.2); WHITE BLOOD COUNT (AUTO) 3.9 K/uL (4.3-11.0)
[2020-05-08 07:14] LABS: ALANINE AMINOTRANSFERASE 10 U/L (12-78); ALBUMIN 3.5 g/dL (3.4-5.0); ALKALINE PHOSPHATASE 52 U/L (46-116); ASPARTATE AMINOTRANSFERASE 8 U/L (15-37); BILIRUBIN,TOTAL 1.4 mg/dL (0.2-1.0); CALCIUM, SERUM 8.3 mg/dL (8.5-10.1); CARBON DIOXIDE 19 mmol/L (21-32); CHLORIDE 107 mmol/L (98-107); CREATININE 2.9 mg/dL (0.6-1.3); GLUCOSE 164 mg/dL (74-106); POTASSIUM 5.5 mmol/L (3.5-5.1); SODIUM SERUM 137 mmol/L (136-145); TOTAL PROTEIN, SERUM 6.2 g/dL (6.4-8.2); UREA NITROGEN, BLOOD 47 mg/dL (7-18)
[2020-05-08 07:17] LABS: SERUM AMMONIA 43 umol/L (11-32)
--- NOTE | 2020-05-08 07:30 | NUR ---
FIRE DEPARTMENT BATTALION CHIEF NOTES PATIENT IN BED, RESTING COMFORTABLY SEEN WITH EYES CLOSED. PATIENT ON NASAL CANNULA 2 LITERS, WITH NO SIGNS OF RESPIRATORY DISTRESS WITH EVEN NON-LABORED BREATHING, NO SOB NOTED, ON RESIDENTIAL CARE FACILITY MANAGER, JUNCTIONAL RHYTHM. . PATIENT SKIN KEPT CLEAN WARM, DRY TOUCH, IV ACCESS INTACT AND PATENT ON LEFT WRIST # 20 GAUGE, RUNNING IVF ORDERED. SAFETY PRECAUTIONS IMPLEMENTED WITH BED LOCKED, BED IN THE LOWEST POSITION, BILATERAL SIDE RAILS UP, BED ALARM ON, AND CALL LIGHT WITHIN EASY REACH OF PATIENT. WILL ENDORSE PLAN OF CARE TO UPCOMING RN.
--- NOTE | 2020-05-08 07:30 | NUR ---
0730 Opening Noted: Report received from night RN. Patient alert, awake and oriented x3. Patient Singaporean speaking. No s/s of distress or discomfort noted, no c/o pain. VS WNL. Patient assisted with ADLs, kept clean and dry. Linens changed. Patient assisted with turning and repositioning, tolerated well. Fall precautions observed. Call light within reach.
[2020-05-08] MEDS: Sodium Bicarbonate 100 MEQ in IV 1/2NS 1000 ML 1,000 ML IV PRN ×3 (07:53→20:47)
[2020-05-08] MEDS: LEVOTHYROXINE SODIUM 125 MCG TABLET PO SCH (07:54)
--- NOTE | 2020-05-08 07:58 | NUR ---
PT REFUSING EGD. NOTIFIED MD AND OR. DR. VARGHESE IN TO SEE PATIENT INFORMED PATIENT REFUSING EGD. NO NEW ORDERS. LEFT MESSAGE FOR DR. JACINTO TO HIS CELL PHONE ABOUT SURGERY PLANNED EGD AND PT REFUSING PROCDURE. NOTIFIED OR THAT A CALL AND MESSAGE WAS LEFT TO [place] THAT PATIENT IS REFUSING EGD.
[2020-05-08] MEDS: MISOPROSTOL 100 MCG TABLET PO SCH ×4 (08:07→20:54)
[2020-05-08] MEDS: PANTOPRAZOLE 40 MG VIAL IV SCH (08:07)
[2020-05-08] MEDS: FOLIC ACID 1 MG TABLET PO SCH (08:07)
[2020-05-08] MEDS: AMLODIPINE BESYLATE 5 MG TABLET PO SCH (08:08)
[2020-05-08] MEDS: HYDROCORTISONE OINT 1% 28.35 GM TUBE TP SCH ×2 (08:08→20:54)
[2020-05-08 08:19] VITALS: BP 132/58
[2020-05-08] MEDS ORDERED: SULFAMETH/TRIMETH 800/160 MG 1 UDTAB TABLET PO SCH ×2 (09:00→12:17)
[2020-05-08] MEDS: MUPIROCIN OINT 2% 22 GM TUBE TP SCH ×2 (09:34→20:54)
[2020-05-08] MEDS ORDERED: CIPROFLOXACIN HCL 250 MG TABLET PO SCH ×2 (11:00→21:00)
[2020-05-08] MEDS: OCTREOTIDE 500 MCG in IV NS 0.9% 99 ML IV PRN ×2 (12:13→20:47)
[2020-05-08] MEDS: MEROPENEM 500 MG in IV NS 0.9% 50 ML IV SCH (13:51)
[2020-05-08] MEDS: SOD FERRIC GLUC 125 MG in IV NS 0.9% 100 ML IV SCH (14:51)
[2020-05-08 15:40] VITALS: BP 124/54
--- NOTE | 2020-05-08 18:25 | NUR ---
Closing Notes: Patient in bed alert, and awake. No c/o pain , no SOB, no s/s of distress or discomfort. Assisted with ADLs. Patient able to turn and repositioned herself. Tolerated treatment and care well. Patient continuously monitored. Needs anticipated and attended. Fall precautions observed. bed locked and in lowest position. Call light within easy reach. VS WNL.
[2020-05-08 20:33] VITALS: BP 135/58
[2020-05-09] MEDS: MEROPENEM 500 MG in IV NS 0.9% 50 ML IV SCH ×2 (01:19→13:15)
[2020-05-09] MEDS: ALBUMIN 25% 25 GM in PREMIX 1 EA IV SCH (04:08)
[2020-05-09 05:27] LABS: OCCULT BLOOD STOOL POSITIVE (NEGATIVE)
[2020-05-09 06:57] LABS: BASOPHILS % (AUTO) 0.5 % (0.0-2.0); EOSINOPHILS % (AUTO) 3.2 % (0.0-6.0); HEMATOCRIT 26 % (33-45); HEMOGLOBIN 8.1 g/dL (11.5-14.8); LYMPHOCYTES # (AUTO) 0.3 /CMM (0.8-4.8); LYMPHOCYTES % (AUTO) 11.5 % (20.0-44.0); MEAN CORPUSCULAR HGB CONC 31 g/dl (31.0-36.0); MEAN CORPUSCULAR VOLUME 94 fL (82-100); MONOCYTES # (AUTO) 0.2 /CMM (0.1-1.30); MONOCYTES % (AUTO) 7.5 % (2.0-12.0); NEUTROPHILS # (AUTO) 2.2 /CMM (1.8-8.9); NEUTROPHILS % (AUTO) 77.3 % (43.0-81.0); PLATELET COUNT (AUTO) 70 /CMM (150-450); RED BLOOD CELL COUNT(AUTO) 2.79 MIL/uL (4.0-5.2); WHITE BLOOD COUNT (AUTO) 2.9 K/uL (4.3-11.0)
[2020-05-09 07:03] LABS: ALBUMIN 4.1 g/dL (3.4-5.0); ALKALINE PHOSPHATASE 43 U/L (46-116); ASPARTATE AMINOTRANSFERASE 7 U/L (15-37); BILIRUBIN,TOTAL 0.9 mg/dL (0.2-1.0); CALCIUM, SERUM 8.3 mg/dL (8.5-10.1); CARBON DIOXIDE 20 mmol/L (21-32); CHLORIDE 109 mmol/L (98-107); CREATININE 2.9 mg/dL (0.6-1.3); GLUCOSE 183 mg/dL (74-106); SODIUM SERUM 140 mmol/L (136-145); TOTAL PROTEIN, SERUM 6.6 g/dL (6.4-8.2); UREA NITROGEN, BLOOD 47 mg/dL (7-18)
--- NOTE | 2020-05-09 07:06 | NUR ---
MS RN OPENING NOTES RECEIVED PT RESTING IN BED AT THIS TIME. AOX3. CHADIAN SPEAKING. NO SOB NOTED, NO S/S OF ANY ACUTE DISTRESS NOTED. NO C/O PAIN AT THIS TIME. RESPIRATIONS ARE EVEN AND UNLABORED WITH EQUAL RISE AND FALL IN CHEST. PT ON 2LPM O2 VIA NC. IV ACCESS NOTED IN RFA G#24 AND LEFT WRIST G#20, BOTH INTACT, PATENT AND FLUSHING WELL. ASPIRATION AND SAFETY PRECAUTIONS IN PLACE AND MAINTAINED AT ALL TIMES. BED IN LOWEST LOCKED POSITION, HOB ELEVATED, SIDE RAILS UP X 2, CALL LIGHT WITHIN REACH. WILL CONTINUE TO MONITOR
--- NOTE | 2020-05-09 07:20 | NUR ---
Closing Notes: Patient in bed seen withe eyes closed in no apparent distress. resp even a nd unlabored on 2lnc. no s/s of distress or discomfort. Assisted with ADLs. Patient able to turn and repositioned herself. pt tolerated using bsc last night with moderate assistance. Fall precautions observed. bed locked and in lowest position. Call light within easy reach. VS WNL.
[2020-05-09 07:36] LABS: ALANINE AMINOTRANSFERASE 8 U/L (12-78)
[2020-05-09] MEDS: LEVOTHYROXINE SODIUM 125 MCG TABLET PO SCH (07:37)
[2020-05-09 08:00] VITALS: BP 136/65
[2020-05-09] MEDS: MISOPROSTOL 100 MCG TABLET PO SCH ×4 (09:25→20:57)
[2020-05-09] MEDS: FOLIC ACID 1 MG TABLET PO SCH (09:25)
[2020-05-09] MEDS: AMLODIPINE BESYLATE 5 MG TABLET PO SCH (09:26)
[2020-05-09] MEDS: MUPIROCIN OINT 2% 22 GM TUBE TP SCH ×2 (09:26→20:57)
[2020-05-09] MEDS: HYDROCORTISONE OINT 1% 28.35 GM TUBE TP SCH ×2 (09:26→20:57)
[2020-05-09] MEDS: PANTOPRAZOLE 40 MG VIAL IV SCH (09:27)
[2020-05-09] MEDS: Sodium Bicarbonate 100 MEQ in IV 1/2NS 1000 ML 1,000 ML IV PRN (09:30)
[2020-05-09] MEDS: OCTREOTIDE 500 MCG in IV NS 0.9% 99 ML IV PRN (09:30)
[2020-05-09 10:00] VITALS: BP 136/65
--- NOTE | 2020-05-09 12:08 | NUR ---
RECEIVED TRANSFER REPORT FROM BHARGAVI ELLOITT. PATIENT IS AWAKE A/O X 3. WITH NO SIGNS OF DISTRESS ON 3L OF NASAL CANNULA. L CW PACEMAKER, L WRIST#20G 1/2NS + NA BICARB AT 50 ML/HR. R FA #24 SANDOSTATIN 50MCG AT 10 ML/HR. SAFETY MEASURES ARE APPLIED, BED IS LOCKED AND LOW POSITION, SIDE RAILS UP X 2. CALL LIGHT WITHIN REACH. WILL CONTINUE TO MONITOR
--- NOTE | 2020-05-09 12:14 | NUR ---
MS RN NOTES PT AWAKE IN BED AT THIS. PT REMAINED STABLE THROUGHOUT SHIFT. PT KEPT CLEAN AND DRY. ALL CARE, NEEDS, MEDICATIONS AND TREATMENT ADMINISTERED ANTICIPATED PER ORDER. REPORT GIVEN TO BHARGAVI MTZ. SAFETY PRECAUTION IN PLACE AND MAINTAINED AT ALL TIMES. BED IN LOWEST LOCKED POSITION, HOB ELEVATED, SIDE RAILS UP X 2, CALL LIGHT WITHIN REACH.
[2020-05-09 16:00] VITALS: BP 134/64
[2020-05-09] MEDS: SOD FERRIC GLUC 125 MG in IV NS 0.9% 100 ML IV SCH (16:13)
--- NOTE | 2020-05-09 18:48 | NUR ---
MS CLOSING NOTES PATIENT IS AWAKE A/O X 3. WITH NO SIGNS OF DISTRESS ON 3L OF NASAL CANNULA. L CW PACEMAKER, L WRIST#20G 1/2NS + NA BICARB AT 50 ML/HR. R FA #24 SANDOSTATIN AT 50MCG/HR. PATIENT KEPT CLEAN AND DRY. ALL NEEDS, CARE, TREATMENT AND MEDICATIONS ADMINISTERED ANTICIPATED PER ORDER. SAFETY MEASURES ARE APPLIED, BED IS LOW AND LOCKED POSITION. SIDE RAILS UP X 2 FOR SAFETY. CALL LIGHT WITHIN REACH. WILL ENDORSE TO THE NEXT PAYROLL ADMINISTRATIVE ASSISTANT.
--- NOTE | 2020-05-09 19:50 | NUR ---
MS RN NOTES RECEIVED PATIENT AWAKE A/O X 3.NO SIGNS OF DISTRESS ON 3L OF NASAL CANNULA. L CW PACEMAKER, L WRIST#20G 1/2NS + NA BICARB AT 50 ML/HR. R FA #24 SANDOSTATIN AT 50MCG/HR.SAFETY MEASURES INPLACED, ASPIRATION PRECAUTION EMPHASIZED, CALL LIGHT WITH IN EASY REACH. APPLIED, BED IS LOW AND LOCKED POSITION. SIDE RAILS UP X 2 FOR SAFETY. ALL NEEDS ANTICIPATED. WILL CONTINUE TO MONITOR ACCORDINGLY.
[2020-05-09 20:00] VITALS: BP 122/58
[2020-05-09] MEDS: ONDANSETRON HCL/PF 4 MG/2 ML VIAL IV PRN (22:04)
[2020-05-10] MEDS: MEROPENEM 500 MG in IV NS 0.9% 50 ML IV SCH ×2 (00:37→13:03)
--- NOTE | 2020-05-10 06:22 | NUR ---
MS RN NOTES ALL NEEDS ATTENDED AND MET. ABLE TO REST AND SLEPT AT INTERVALS. SAFETY MEASURES INPLACE, ASPIRATION PRECAUTION EMPHASIZED. IV ACCESS INTACT AND PATENT. DENIES ANY PAIN AT THIS TIME, CALM AND RESTING COMFORTABLY. CALL LIGHT WITH IN EASY REACH. WILL ENDORSE TO AM NURSE FOR CONTINUITY OF CARE.
[2020-05-10] MEDS: LEVOTHYROXINE SODIUM 125 MCG TABLET PO SCH (06:45)
--- NOTE | 2020-05-10 07:41 | NUR ---
MS/RN OPENING NOTES RECEIVED PATIENT ON BED AWAKE, ALERT AND ORIENTED X 3. PATIENT IN NO APPARENT RESPIRATORY DISTRESS NOTED. NO COMPLAINED OF PAIN NOTED AT THIS TIME. WILL CONTINUE TO MONITOR.
[2020-05-10 08:00] VITALS: BP 135/61
[2020-05-10] MEDS ORDERED: MECL-159 PO (08:48)
[2020-05-10] MEDS ORDERED: Folic Acid PO (08:48)
[2020-05-10] MEDS ORDERED: MUPI22OI7 TP (08:48)
[2020-05-10] MEDS ORDERED: AMLO5TAB9 PO (08:48)
[2020-05-10] MEDS ORDERED: HYDR-4076 PO (08:48)
[2020-05-10] MEDS ORDERED: MISO100T PO (08:48)
[2020-05-10] MEDS ORDERED: LEVO125T PO (08:48)
[2020-05-10] MEDS ORDERED: HYDR28.34 TP (08:48)
[2020-05-10] MEDS: FOLIC ACID 1 MG TABLET PO SCH (09:04)
[2020-05-10] MEDS: AMLODIPINE BESYLATE 5 MG TABLET PO SCH (09:04)
[2020-05-10] MEDS: PANTOPRAZOLE 40 MG VIAL IV SCH (09:04)
[2020-05-10] MEDS: MISOPROSTOL 100 MCG TABLET PO SCH ×4 (09:06→21:22)
[2020-05-10] MEDS: HYDROCORTISONE OINT 1% 28.35 GM TUBE TP SCH ×2 (09:17→21:26)
[2020-05-10] MEDS: MUPIROCIN OINT 2% 22 GM TUBE TP SCH ×2 (09:17→21:26)
[2020-05-10] MEDS: OCTREOTIDE 500 MCG in IV NS 0.9% 99 ML IV PRN ×2 (09:35→21:19)
[2020-05-10] MEDS: SOD FERRIC GLUC 125 MG in IV NS 0.9% 100 ML IV SCH (14:44)
[2020-05-10 15:55] LABS: OCCULT BLOOD STOOL NEGATIVE (NEGATIVE)
[2020-05-10 16:00] VITALS: BP 120/57
[2020-05-10] MEDS: Sodium Bicarbonate 100 MEQ in IV 1/2NS 1000 ML 1,000 ML IV PRN ×2 (16:53→20:44)
--- NOTE | 2020-05-10 19:01 | NUR ---
MS/RN CLOSING NOTES PATIENT IS ON BED, ALERT AND ORIENTED X 3. PATIENT IN NO APPARENT RESPIRATORY DISTRESS NOTED. NO COMPLAINED OF PAIN NOTED AT THIS TIME. IV ACCESS AT LEFT WRIST # 20 G SANDOSTATIN 50 MG AT 10ML/HR, RIGHT FOREARM # 24 G NS + NA BICARBONATE 50 ML/HR ON AND INFUSING WELL. SEEN AND EXAMINED BY MD WITH ORDERS MADE AND CARRIED OUT. ALL DUE MEDICATIONS WAS GIVEN. SAFETY PRECAUTIONS WAS IN PLACED. BED IN LOWEST POSITION AND LOCKED X2. CALL LIGHT WITHIN REACH. WILL ENDORSED TO SAP TRAINER FOR HOMER.
[2020-05-10 20:00] VITALS: BP 136/66
--- NOTE | 2020-05-10 20:10 | NUR ---
REGULATORY COORDINATOR: RECEIVED REPORT FROM YANETH BURK. NOTED PT'S IV ACCESS INFILTRATED, WILL RESTART NEW IV ACCESS. ALSO PER PHARMACY TO ALWAYS CHECK THE EXPIRATION OF IVF AND SANDOSTATIN. PT S/P PARACENTESIS 05/07/2020. PT ISOLATION ESBL URINE, PPE UTILIZED. ON KCI MATTRESS. BLE OFFLOADED ON PILLOWS. SAFETY PRECAUTIONS FOR FALL INITIATED, CALL LIGHT IN REACH, WILL CONTINUE MONITORING PT.
--- NOTE | 2020-05-10 22:00 | NUR ---
RN NOTES: PT RECEIVING NA BICARB IN 0.45% NS AT 50 ML/HR (LEFT WRIST G 20), AND SANDOSTATIN AT 50MCG/HR EQUIVALENT TO 10ML/HR VIA RIGHT HAND G 24 IV ACCESS.
[2020-05-10 23:03] LABS: OCCULT BLOOD STOOL NEGATIVE (NEGATIVE)
[2020-05-11] MEDS: MEROPENEM 500 MG in IV NS 0.9% 50 ML IV SCH ×2 (00:11→12:26)
[2020-05-11] MEDS: OCTREOTIDE 500 MCG in IV NS 0.9% 99 ML IV PRN ×2 (05:00→12:26)
[2020-05-11 06:28] LABS: BASOPHILS % (AUTO) 0.3 % (0.0-2.0); EOSINOPHILS % (AUTO) 1.9 % (0.0-6.0); HEMATOCRIT 30 % (33-45); LYMPHOCYTES # (AUTO) 0.6 /CMM (0.8-4.8); LYMPHOCYTES % (AUTO) 10.9 % (20.0-44.0); MEAN CORPUSCULAR HGB CONC 30 g/dl (31.0-36.0); MEAN CORPUSCULAR VOLUME 98 fL (82-100); MONOCYTES # (AUTO) 0.5 /CMM (0.1-1.30); MONOCYTES % (AUTO) 8.4 % (2.0-12.0); NEUTROPHILS # (AUTO) 4.3 /CMM (1.8-8.9); NEUTROPHILS % (AUTO) 78.5 % (43.0-81.0); PLATELET COUNT (AUTO) 79 /CMM (150-450); RED BLOOD CELL COUNT(AUTO) 3.09 MIL/uL (4.0-5.2); WHITE BLOOD COUNT (AUTO) 5.4 K/uL (4.3-11.0)
--- NOTE | 2020-05-11 06:59 | NUR ---
end of shift report: pt remains on ra, respirations even and unlabored, episode of 1 large soft bm brown in color, sent for stool ob, result came back negative. no s/s of active bleeding noted. daily weight entered in computer. pt remains afebrile, no episode of vomiting throughout the shift. both iv access remains patent and flushing well, infusing with ivf as ordered left wrist, and sandostatin on right hand iv access. remains afebrile. plan of care: dc planning,cm on board. vs remains stable, needs attended. safety precautions for fall remains engaged, call light in reach, will endorse to day rn for ciera.
[2020-05-11 07:01] LABS: ALBUMIN 3.2 g/dL (3.4-5.0); ALKALINE PHOSPHATASE 50 U/L (46-116); ASPARTATE AMINOTRANSFERASE 7 U/L (15-37); CALCIUM, SERUM 8.6 mg/dL (8.5-10.1); CARBON DIOXIDE 21 mmol/L (21-32); CHLORIDE 107 mmol/L (98-107); CREATININE 3.2 mg/dL (0.6-1.3); GLUCOSE 217 mg/dL (74-106); SODIUM SERUM 138 mmol/L (136-145); TOTAL PROTEIN, SERUM 6.3 g/dL (6.4-8.2); UREA NITROGEN, BLOOD 51 mg/dL (7-18)
[2020-05-11 07:29] LABS: ALANINE AMINOTRANSFERASE 9 U/L (12-78)
[2020-05-11 07:48] LABS: EOSINOPHILS % (MANUAL) 2 % (0-4); LYMPHOCYTES % (MANUAL) 18 % (16-48); MONOCYTES % (MANUAL) 2 % (0-11.0); NEUTROPHILS % (MANUAL) 78 (42-76)
[2020-05-11 08:00] VITALS: BP 133/72
--- NOTE | 2020-05-11 08:00 | NUR ---
MS RN OPENING NOTES Received Patient resting in bed. A/O x 3, Gabonese speaking. VS stable with no acute distress. Breathing even and unlabored on room air with no respiratory distress. Denies pain. No signs and symptoms of pain. 24g PIV on right hand intact, patent and flushing well with Sandostatin infusing at 10ml/hr. 20g PIV on left wrist intact, patent and flushing well with Sodium Bicarb infusing at 50ml/hr. Safety precautions in place. Bed locked and set to lowest position with side rails x 2 up. All needs rendered at this time. Call light within reach. Will continue to monitor.
[2020-05-11] MEDS: LEVOTHYROXINE SODIUM 125 MCG TABLET PO SCH (08:54)
[2020-05-11] MEDS: PANTOPRAZOLE 40 MG VIAL IV SCH (08:54)
[2020-05-11] MEDS: FOLIC ACID 1 MG TABLET PO SCH (08:55)
[2020-05-11] MEDS: AMLODIPINE BESYLATE 5 MG TABLET PO SCH (08:59)
[2020-05-11] MEDS: MISOPROSTOL 100 MCG TABLET PO SCH ×4 (09:00→17:23)
[2020-05-11] MEDS: MUPIROCIN OINT 2% 22 GM TUBE TP SCH (09:02)
[2020-05-11] MEDS: HYDROCORTISONE OINT 1% 28.35 GM TUBE TP SCH (09:02)
[2020-05-11] MEDS: MIDODRINE HCL (5MG) 5 MG TABLET PO SCH ×2 (12:41→17:00)
[2020-05-11] MEDS: SOD FERRIC GLUC 125 MG in IV NS 0.9% 100 ML IV SCH (13:59)
[2020-05-11 16:00] VITALS: BP 137/65
[2020-05-11 17:00] VITALS: BP 137/65
--- NOTE | 2020-05-11 18:30 | NUR ---
MS CASE AIDE NOTES Patient discharged for [facility] at this time. Patient in stable condition. VS stable with no acute distress. Breathing even and unlabored on room air with no respiratory distress. Denies pain. No signs and symptoms of pain. Skin assessment photos taken and placed in chart. Medication reconciliation and discharge orders reviewed and explained to Patient. Patient verbalized understanding. Patient will follow up with PCP at Rehab. All belongings with Patient. Patient picked up by ambulance. Report given to Neida BURK.
== END 2020-05-11 18:37 | DRG 432 ==
LOC: ER 09:50 → TELE 15:52 → MED 05-08 11:16
PROVIDERS: ADMIT Family Medicine; ATTEND Family Medicine
PROC: 30233N1 Transfusion of Nonautologous Red Blood Cells into Peripheral Vein, Percutaneous Approach (ICD-10-PCS; 2020-05-07)
PROC: 0W9G3ZZ Drainage of Peritoneal Cavity, Percutaneous Approach (ICD-10-PCS; 2020-05-07)
PROC: 0DJ08ZZ Inspection of Upper Intestinal Tract, Via Natural or Artificial Opening Endoscopic (ICD-10-PCS; principal; 2020-05-09)
DX: K74.60 Unspecified cirrhosis of liver (principal); N17.0 Acute kidney failure with tubular necrosis; I13.0 Hypertensive heart and chronic kidney disease with heart failure and stage 1 through stage 4 chronic kidney disease, or unspecified chronic kidney disease; K76.6 Portal hypertension; N39.0 Urinary tract infection, site not specified; G93.1 Anoxic brain damage, not elsewhere classified; R64 Cachexia; I48.92 Unspecified atrial flutter; R18.8 Other ascites; K92.0 Hematemesis; K92.1 Melena; E87.2 Acidosis; K86.1 Other chronic pancreatitis; E86.0 Dehydration; E87.5 Hyperkalemia; E11.22 Type 2 diabetes mellitus with diabetic chronic kidney disease; E11.51 Type 2 diabetes mellitus with diabetic peripheral angiopathy without gangrene; E78.5 Hyperlipidemia, unspecified; I25.10 Atherosclerotic heart disease of native coronary artery without angina pectoris; N18.9 Chronic kidney disease, unspecified; M81.0 Age-related osteoporosis without current pathological fracture; D63.1 Anemia in chronic kidney disease; E03.9 Hypothyroidism, unspecified; F03.90 Unspecified dementia, unspecified severity, without behavioral disturbance, psychotic disturbance, mood disturbance, and anxiety; K29.70 Gastritis, unspecified, without bleeding; Z95.0 Presence of cardiac pacemaker; Z95.1 Presence of aortocoronary bypass graft; Z86.73 Personal history of transient ischemic attack (TIA), and cerebral infarction without residual deficits; Z87.440 Personal history of urinary (tract) infections; Z91.81 History of falling; Z90.49 Acquired absence of other specified parts of digestive tract; Z96.659 Presence of unspecified artificial knee joint; Z98.890 Other specified postprocedural states; Z88.1 Allergy status to other antibiotic agents; Z79.899 Other long term (current) drug therapy; Z79.51 Long term (current) use of inhaled steroids; Z83.3 Family history of diabetes mellitus; Z82.49 Family history of ischemic heart disease and other diseases of the circulatory system; Z79.890 Hormone replacement therapy; R32 Unspecified urinary incontinence; K40.20 Bilateral inguinal hernia, without obstruction or gangrene, not specified as recurrent; K42.9 Umbilical hernia without obstruction or gangrene; K44.9 Diaphragmatic hernia without obstruction or gangrene; I50.9 Heart failure, unspecified; I07.1 Rheumatic tricuspid insufficiency; I35.0 Nonrheumatic aortic (valve) stenosis; M16.10 Unilateral primary osteoarthritis, unspecified hip; M17.10 Unilateral primary osteoarthritis, unspecified knee; R26.9 Unspecified abnormalities of gait and mobility; B35.1 Tinea unguium; I27.20 Pulmonary hypertension, unspecified; I48.91 Unspecified atrial fibrillation; R15.9 Full incontinence of feces; D50.0 Iron deficiency anemia secondary to blood loss (chronic); D63.8 Anemia in other chronic diseases classified elsewhere; I70.0 Atherosclerosis of aorta; K57.90 Diverticulosis of intestine, part unspecified, without perforation or abscess without bleeding; K64.9 Unspecified hemorrhoids; K21.00 Gastro-esophageal reflux disease with esophagitis, without bleeding; M79.7 Fibromyalgia
CPT/HCPCS: 36415; 71045-TC; 76942-TC; 80048-TC; 80053-TC; 80076-TC; 81000-TC; 82140-TC; 82272-TC; 82436-TC; 82570-TC; 82728-TC; 82962-TC; 83540-TC; 83690-TC; 83735-TC; 83935-TC; 84133-TC; 84155-TC; 84300-TC; 84443-TC; 85025-TC; 85610-TC; 86850-TC; 87070-TC; 87081-TC; 87086-TC; 87186-TC; A4216; C9113; C9803; G0378; J1815; J2185; J2270; J2354; J2405; J2543; J2916; J3490; J7030; J7050; J7060; P9016-BL; P9047

== ENCOUNTER 2020-06-11 07:00 | Inpatient (IN) | payer MEDICARE, OTHER ==
[~2020-06-11] VITALS: Ht 157.5 cm; Wt 88.0 kg
[~2020-06-11 07:00] MED LIST changes: -ACET325T53 PO; +AMLO-212 PO; -AMLO5TAB9 PO; -BUDE10.2 IH; -BUME1TAB8 PO; -BUME2TAB7 PO; -ENAL2.5T17 PO; +FURO20TA4 PO; +Folic Acid PO; +HYDR28.34 TP; -ISOS20TA8 PO; -MISO100T PO; +MISO100T2 PO; +MUPI22OI7 TP; -RANI150T8 PO; -REPA2TAB10 PO; -TIOT18CA3 IH; -ZOLP5TAB2 PO
--- NOTE | 2020-06-11 07:00 | NUR ---
DAVY FROM HOME FOR C/O SOB AND ABDOMINAL DISTENTION. PT W/ PMH OF ASCITES AND PARACENTHESIS IN THE PAST. A, OX 3. PT WAS ASSISTED TRANSFER TO BED 5 AND WAS PLACED ON A MONITOR,
--- NOTE | 2020-06-11 07:11 | NUR ---
PAGED DR HERRERA PER DR AYALA'S ORDER
--- NOTE | 2020-06-11 07:15 | NUR ---
IV INITIATED LAC 20G. LABS DRAWN FROM SITE. ETCHER ELECTROLYTIC AT BEDSIDE FOR COLLECTION. IV INTACT AND PATENT, PLACED ON SALINE LOCK
--- NOTE | 2020-06-11 07:20 | NUR ---
CALLED DR HERRERA'S CELL AND LEFT MESSAGE RE PT'S ADMISSION
[2020-06-11 07:31] LABS: BASOPHILS % (AUTO) 0.5 % (0.0-2.0); EOSINOPHILS % (AUTO) 3.2 % (0.0-6.0); HEMATOCRIT 28 % (33-45); HEMOGLOBIN 8.5 g/dL (11.5-14.8); LYMPHOCYTES # (AUTO) 0.7 /CMM (0.8-4.8); LYMPHOCYTES % (AUTO) 13.7 % (20.0-44.0); MEAN CORPUSCULAR HGB CONC 31 g/dl (31.0-36.0); MEAN CORPUSCULAR VOLUME 98 fL (82-100); MONOCYTES # (AUTO) 0.3 /CMM (0.1-1.30); MONOCYTES % (AUTO) 6.6 % (2.0-12.0); NEUTROPHILS # (AUTO) 3.7 /CMM (1.8-8.9); PLATELET COUNT (AUTO) 163 /CMM (150-450); RED BLOOD CELL COUNT(AUTO) 2.84 MIL/uL (4.0-5.2); WHITE BLOOD COUNT (AUTO) 4.9 K/uL (4.3-11.0)
[2020-06-11 07:34] LABS: CALCIUM, SERUM 8.3 mg/dL (8.5-10.1); CARBON DIOXIDE 23 mmol/L (21-32); CHLORIDE 109 mmol/L (98-107); CREATININE 1.6 mg/dL (0.6-1.3); GLUCOSE 190 mg/dL (74-106); SODIUM SERUM 139 mmol/L (136-145); UREA NITROGEN, BLOOD 36 mg/dL (7-18)
[2020-06-11 07:39] LABS: ALANINE AMINOTRANSFERASE 14 U/L (12-78); ALBUMIN 2.6 g/dL (3.4-5.0); ALKALINE PHOSPHATASE 122 U/L (46-116); ASPARTATE AMINOTRANSFERASE 17 U/L (15-37); BILIRUBIN,DIRECT 0.3 mg/dL (0.0-0.2); BILIRUBIN,TOTAL 0.4 mg/dL (0.2-1.0); LIPASE 318 U/L (73-393); TOTAL PROTEIN, SERUM 7.1 g/dL (6.4-8.2)
--- NOTE | 2020-06-11 07:57 | NUR ---
RAPID COVID SWAB DONE AND SENT TO LAB
[2020-06-11] MEDS ORDERED: DEXTROSE 50%-WATER 50 ML DISP.SYRIN IV ONE (08:00)
[2020-06-11] MEDS ORDERED: SODIUM BICARBONATE SYR 50 MEQ/50 ML DISP.SYRIN IV ONE (08:00)
[2020-06-11] MEDS ORDERED: SODIUM POLYSTYRENE SULFONATE 15 G/60 ML BOTTLE PO ONE (08:00)
[2020-06-11] MEDS ORDERED: INSULIN REGULAR, HUMAN 100 UNIT/ML 10 ML VIAL IV ONE (08:00)
[2020-06-11] MEDS ORDERED: ALBUTEROL FS 2.5 MG/3 ML VIAL.NEB NEB ONE (08:00)
[2020-06-11] MEDS ORDERED: CALCIUM CHLORIDE 1,000 MG/10 ML DISP.SYRIN IV ONE (08:00)
--- NOTE | 2020-06-11 08:02 | NUR ---
CONSENT SIGNED BY PATIENT FOR ULTRASOUND GUIDED PARACENTESIS
[2020-06-11] MEDS ORDERED: DEXTROSE 50%-WATER 50 ML DISP.SYRIN ONE (08:14)
[2020-06-11] MEDS ORDERED: SODIUM POLYSTYRENE SULFONATE 15 G/60 ML BOTTLE ONE (08:14)
[2020-06-11] MEDS ORDERED: CALCIUM CHLORIDE 1,000 MG/10 ML DISP.SYRIN ONE (08:14)
[2020-06-11] MEDS ORDERED: INSULIN REGULAR, HUMAN 100 UNIT/ML 10 ML VIAL ONE (08:14)
[2020-06-11] MEDS ORDERED: SODIUM BICARBONATE SYR 50 MEQ/50 ML DISP.SYRIN ONE (08:14)
[2020-06-11] MEDS ORDERED: BUDE10.2 IH (08:24)
[2020-06-11] MEDS ORDERED: LINA5TAB PO (08:24)
[2020-06-11] MEDS ORDERED: ATOR10TA PO (08:24)
[2020-06-11] MEDS ORDERED: ISOS20TA8 PO (08:24)
[2020-06-11] MEDS ORDERED: ENAL2.5T70 PO (08:24)
[2020-06-11] MEDS ORDERED: SPIR25TA PO (08:24)
[2020-06-11] MEDS ORDERED: TIOT18CA3 IH (08:24)
[2020-06-11] MEDS ORDERED: PROP10TA68 PO (08:24)
--- NOTE | 2020-06-11 08:27 | NUR ---
URINE SAMPLE COLLECTED VIA STRAIGHT CATHETER, SAMPLE SENT TO LAB
[2020-06-11] MEDS ORDERED: HYDROCODONE/APAP 5/325MG TABLET PO PRN (08:30)
[2020-06-11] MEDS ORDERED: INSULIN REGULAR, HUMAN 100 UNIT/ML 3 ML VIAL SQ PRN (08:30)
[2020-06-11] MEDS ORDERED: ACETAMINOPHEN 325 MG TABLET PO PRN (08:30)
[2020-06-11] MEDS ORDERED: Z GUARD REMEDY 2 OZ OINT TP PRN (08:30)
[2020-06-11] MEDS ORDERED: DEXTROSE 50%-WATER 50 ML DISP.SYRIN IV PRN (08:30)
[2020-06-11] MEDS ORDERED: MAG HYDROX/AL HYDROX/SIMETH 30 ML UDC PO PRN (08:30)
[2020-06-11] MEDS ORDERED: ONDANSETRON HCL/PF 4 MG/2 ML VIAL IVP PRN (08:30)
[2020-06-11] MEDS ORDERED: MAGNESIUM HYDROXIDE 30 ML UDC PO PRN (08:30)
[2020-06-11] MEDS ORDERED: MORPHINE SULFATE INJ 2 MG/ML DISP.SYRIN IV PRN (08:30)
[2020-06-11 08:34] LABS: SERUM AMMONIA 65 umol/L (11-32)
[2020-06-11 08:46] LABS: BILIRUBIN,URINE NEGATIVE (NEGATIVE); BLOOD, URINE TRACE-INTA Ery/uL (NEGATIVE); COLOR,URINE YELLOW (YELLOW); LEUKOCYTE ESTERASE ,URINE NEGATIVE (NEGATIVE); NITRITE, URINE NEGATIVE (NEGATIVE); PH,URINE 5.5 (5.0-8.0); PROTEIN,URINE 30 mg/dl (NEGATIVE); UGLUCOSE NEGATIVE (NEGATIVE); UROBILINOGEN,URINE 0.2 EU/dL (0.2)
[2020-06-11 08:59] LABS: B-TYPE NATRIURETIC PEPTIDE 23866 PG/ML (0-125)
[2020-06-11 09:05] LABS: BACTERIA,URINE Rare /HPF (None Seen); SQUAMOUS EPITHELIAL CELL,UR Few /HPF (None Seen); WBC,URINE 0-2 /HPF (0-3)
[2020-06-11 09:06] LABS: URINE AMORPHOUS URATE Moderate /HPF (None Seen)
[2020-06-11] MEDS ORDERED: ALBUTEROL FS 2.5 MG/3 ML VIAL.NEB ONE (09:10)
--- NOTE | 2020-06-11 09:10 | NUR ---
LAB CALLED COVID RESULT NEGATIVE (-)
[2020-06-11 09:11] LABS: THYROID STIMULATING HORMONE 13.069 uIU/mL (0.358-3.74)
--- NOTE | 2020-06-11 09:12 | NUR ---
RT AT BEDSIDE FOR BREATHING TX
--- NOTE | 2020-06-11 09:25 | NUR ---
ALEXANDRA BAIG AT BEDSIDE FOR PARACENTESIS
[2020-06-11] MEDS ORDERED: MECLIZINE HCL 25 MG TABLET PO PRN (09:30)
[2020-06-11] MEDS ORDERED: hydrALAZINE HCL 25 MG TABLET PO PRN (09:30)
--- NOTE | 2020-06-11 09:38 | NUR ---
AT BEDSIDE FOR PARACENTESIS
--- NOTE | 2020-06-11 10:26 | NUR ---
paracentesis done with output of 5.2 liters.
[2020-06-11] MEDS ORDERED: LACTULOSE 10 G/15 ML UDC (PYXIS) PO ONE (10:30)
[2020-06-11] MEDS ORDERED: LACTULOSE 10 G/15 ML UDC (PYXIS) ONE (10:52)
--- NOTE | 2020-06-11 10:57 | NUR ---
[facility] BED. 310-1
--- NOTE | 2020-06-11 11:03 | NUR ---
CALLED TELE UNIT FOR REPORT. NO NURSE ASSIGNED YET. WILL CALL IN 10MIN
--- NOTE | 2020-06-11 11:09 | NUR ---
REPORT GIVEN TO SHINE BURK OF TELE UNIT
--- NOTE | 2020-06-11 11:15 | NUR ---
DRAFTER ELECTROMECHANICAL NOTES RECEIVED ADMISSION FROM ER. PATIENT IN MEDICALLY STABLE CONDITION, ON ROOM AIR, VITAL SIGNS WITHIN NORMAL LIMITS. WILL CONTINUE TO MONITOR PATIENT.
[2020-06-11] MEDS ORDERED: BUDESONIDE INH PRN (12:00)
[2020-06-11] MEDS ORDERED: FORMOTEROL INH PRN (12:00)
[2020-06-11] MEDS: BLOOD SUGAR DIAGNOSTIC 1 EACH STRIP IN SCH ×2 (12:15→17:41)
[2020-06-11] MEDS ORDERED: ALBUMIN 25% 25 GM in PREMIX 1 EA IV SCH (12:30)
[2020-06-11] MEDS ORDERED: IPRATROPIUM NEB FS 0.5 MG/2.5 ML AMPUL.NEB NEB SCH (13:30)
[2020-06-11] MEDS: MISOPROSTOL 100 MCG TABLET PO SCH ×2 (13:31→17:42)
[2020-06-11] MEDS: ISOSORBIDE DINITRATE (20MG) 20 MG TABLET PO SCH ×2 (13:32→17:42)
--- NOTE | 2020-06-11 17:11 | NUR ---
HOUSE COORDINATOR NOTES CALLED PHARMACY TWICE TODAY REGARDING 12:30 MEDICATION ALBUMIN. PER PHARMACY IT HAS BEEN DELIVERED BUT THE MEDICATION IS NOWHERE TO BE FOUND. PHARMACY TO SUPPLY WITH NEW MEDICATION BUT STILL NOT HERE. WILL CONTINUE TO FOLLOW UP.
[2020-06-11 17:42] VITALS: BP 152/68
[2020-06-11] MEDS ORDERED: PROPRANOLOL HCL 10 MG TABLET PO SCH (21:00)
[2020-06-12] MEDS ORDERED: LEVOTHYROXINE SODIUM 125 MCG TABLET PO SCH (07:30)
[2020-06-12] MEDS ORDERED: SPIRONOLACTONE 25 MG TABLET PO SCH (09:00)
[2020-06-12] MEDS ORDERED: FUROSEMIDE 20 MG TABLET PO SCH (09:00)
[2020-06-12] MEDS ORDERED: ATORVASTATIN 10 MG TABLET PO SCH (09:00)
[2020-06-12] MEDS ORDERED: AMLODIPINE BESYLATE 5 MG TABLET PO SCH (09:00)
[2020-06-12] MEDS ORDERED: ENALAPRIL MALEATE (5 MG) 5 MG TABLET PO SCH (09:00)
== END 2020-06-11 19:15 | disposition left against medical advice (07) | DRG 432 ==
LOC: ER 07:01 → TELE 11:03
PROVIDERS: ADMIT Nurse Practitioner Acute Care; ATTEND Nurse Practitioner Acute Care
PROC: 0W9G3ZZ Drainage of Peritoneal Cavity, Percutaneous Approach (ICD-10-PCS; principal; 2020-06-11)
DX: K74.60 Unspecified cirrhosis of liver (principal); N17.0 Acute kidney failure with tubular necrosis; R18.8 Other ascites; G93.40 Encephalopathy, unspecified; E44.0 Moderate protein-calorie malnutrition; K86.1 Other chronic pancreatitis; K76.6 Portal hypertension; I48.91 Unspecified atrial fibrillation; E78.5 Hyperlipidemia, unspecified; E11.22 Type 2 diabetes mellitus with diabetic chronic kidney disease; I25.10 Atherosclerotic heart disease of native coronary artery without angina pectoris; I25.2 Old myocardial infarction; Z95.1 Presence of aortocoronary bypass graft; Z95.0 Presence of cardiac pacemaker; Z86.73 Personal history of transient ischemic attack (TIA), and cerebral infarction without residual deficits; F03.90 Unspecified dementia, unspecified severity, without behavioral disturbance, psychotic disturbance, mood disturbance, and anxiety; F29 Unspecified psychosis not due to a substance or known physiological condition; F32.9 Major depressive disorder, single episode, unspecified; I27.20 Pulmonary hypertension, unspecified; E87.5 Hyperkalemia; E03.9 Hypothyroidism, unspecified; I12.9 Hypertensive chronic kidney disease with stage 1 through stage 4 chronic kidney disease, or unspecified chronic kidney disease; N18.9 Chronic kidney disease, unspecified; Z87.440 Personal history of urinary (tract) infections; E11.42 Type 2 diabetes mellitus with diabetic polyneuropathy; Z90.49 Acquired absence of other specified parts of digestive tract; Z82.49 Family history of ischemic heart disease and other diseases of the circulatory system; Z83.3 Family history of diabetes mellitus; Z95.5 Presence of coronary angioplasty implant and graft; Z91.81 History of falling; Z79.51 Long term (current) use of inhaled steroids; Z79.899 Other long term (current) drug therapy; Z88.1 Allergy status to other antibiotic agents; I50.9 Heart failure, unspecified; D63.8 Anemia in other chronic diseases classified elsewhere; E66.9 Obesity, unspecified; Z68.35 Body mass index [BMI] 35.0-35.9, adult; K21.9 Gastro-esophageal reflux disease without esophagitis; K59.00 Constipation, unspecified; K57.90 Diverticulosis of intestine, part unspecified, without perforation or abscess without bleeding; K29.70 Gastritis, unspecified, without bleeding; M81.0 Age-related osteoporosis without current pathological fracture; M79.7 Fibromyalgia; G89.29 Other chronic pain; D64.9 Anemia, unspecified; E53.8 Deficiency of other specified B group vitamins; I08.3 Combined rheumatic disorders of mitral, aortic and tricuspid valves
CPT/HCPCS: 36415; 71045-TC; 76942-TC; 80048-TC; 80076-TC; 81001; 82140-TC; 82962-TC; 83690-TC; 83880; 84439-TC; 84443-TC; 84484-TC; 85025-TC; 85730-TC; 87081-TC; A4216; C9803; G0378; J1815; J3490; J7040; J7050; P9047

== ENCOUNTER 2020-07-21 12:22 | Inpatient (IN) | payer MEDICARE, OTHER ==
[~2020-07-21] VITALS: Ht 157.5 cm; Wt 90.8 kg
[~2020-07-21 12:22] MED LIST changes: +ATOR10TA PO; +BUDE10.2 IH; +ENAL2.5T70 PO; -FOLI0.4T2 PO; -Folic Acid PO; -HYDR28.34 TP; +ISOS20TA8 PO; -LEVO125T PO; +LINA5TAB PO; -MUPI22OI7 TP; +SPIR25TA PO; +TIOT18CA3 IH
--- NOTE | 2020-07-21 12:25 | NUR ---
frm home for abdominal pain and distension. vs checked. iv access started blood draw done sent to lab
--- NOTE | 2020-07-21 13:00 | NUR ---
pt rec;d to er via ems iv started left wrist 18g labs andua sent to lab ekg and chest xray done
[2020-07-21 13:39] LABS: BASOPHILS % (AUTO) 0.5 % (0.0-2.0); EOSINOPHILS % (AUTO) 1.5 % (0.0-6.0); HEMATOCRIT 33 % (33-45); LYMPHOCYTES # (AUTO) 0.6 /CMM (0.8-4.8); MEAN CORPUSCULAR HGB CONC 30 g/dl (31.0-36.0); MEAN CORPUSCULAR VOLUME 98 fL (82-100); MONOCYTES # (AUTO) 0.2 /CMM (0.1-1.30); MONOCYTES % (AUTO) 4.8 % (2.0-12.0); NEUTROPHILS # (AUTO) 4.2 /CMM (1.8-8.9); NEUTROPHILS % (AUTO) 82.2 % (43.0-81.0); PLATELET COUNT (AUTO) 151 /CMM (150-450); RED BLOOD CELL COUNT(AUTO) 3.39 MIL/uL (4.0-5.2); WHITE BLOOD COUNT (AUTO) 5.1 K/uL (4.3-11.0)
[2020-07-21 14:12] LABS: ALANINE AMINOTRANSFERASE 9 U/L (12-78); ALBUMIN 2.5 g/dL (3.4-5.0); ALKALINE PHOSPHATASE 125 U/L (46-116); ASPARTATE AMINOTRANSFERASE 15 U/L (15-37); BILIRUBIN,DIRECT 0.5 mg/dL (0.0-0.2); BILIRUBIN,TOTAL 0.9 mg/dL (0.2-1.0); CALCIUM, SERUM 8.9 mg/dL (8.5-10.1); CARBON DIOXIDE 21 mmol/L (21-32); CHLORIDE 108 mmol/L (98-107); CREATININE 1.6 mg/dL (0.6-1.3); GLUCOSE 176 mg/dL (74-106); LIPASE 114 U/L (73-393); SODIUM SERUM 139 mmol/L (136-145); TOTAL PROTEIN, SERUM 6.9 g/dL (6.4-8.2); UREA NITROGEN, BLOOD 30 mg/dL (7-18)
[2020-07-21 14:32] LABS: POTASSIUM 6.3 mmol/L (3.5-5.1)
[2020-07-21 14:40] LABS: BILIRUBIN,URINE NEGATIVE (NEGATIVE); COLOR,URINE YELLOW (YELLOW); LEUKOCYTE ESTERASE ,URINE NEGATIVE (NEGATIVE); NITRITE, URINE NEGATIVE (NEGATIVE); PH,URINE 5.5 (5.0-8.0); PROTEIN,URINE 100 mg/dl (NEGATIVE); UGLUCOSE NEGATIVE (NEGATIVE); UROBILINOGEN,URINE 0.2 EU/dL (0.2)
[2020-07-21] MEDS ORDERED: SODIUM BICARBONATE SYR 50 MEQ/50 ML DISP.SYRIN ONE (14:41)
[2020-07-21] MEDS ORDERED: FUROSEMIDE 20 MG/2 ML VIAL ONE (14:41)
[2020-07-21] MEDS ORDERED: CALCIUM CHLORIDE 1,000 MG/10 ML DISP.SYRIN ONE (14:42)
[2020-07-21] MEDS ORDERED: DEXTROSE 50%-WATER 50 ML DISP.SYRIN ONE (14:42)
[2020-07-21] MEDS ORDERED: INSULIN REGULAR, HUMAN 100 UNIT/ML 10 ML VIAL ONE (14:42)
[2020-07-21] MEDS ORDERED: ONDANSETRON HCL/PF 4 MG/2 ML VIAL ONE (14:51)
[2020-07-21] MEDS ORDERED: SODIUM BICARBONATE SYR 50 MEQ/50 ML DISP.SYRIN IV ONE (15:00)
[2020-07-21] MEDS ORDERED: INSULIN REGULAR, HUMAN 100 UNIT/ML 10 ML VIAL IV ONE (15:00)
[2020-07-21] MEDS ORDERED: FUROSEMIDE 40 MG/4 ML VIAL IV ONE (15:00)
[2020-07-21] MEDS ORDERED: DEXTROSE 50%-WATER 50 ML DISP.SYRIN IV ONE (15:00)
[2020-07-21] MEDS ORDERED: IV NS 0.9% 1,000 ML BAG IV ONE (15:00)
[2020-07-21] MEDS ORDERED: CALCIUM CHLORIDE 1,000 MG/10 ML DISP.SYRIN IV ONE (15:00)
[2020-07-21] MEDS ORDERED: ONDANSETRON HCL/PF - ER 4 MG/2 ML VIAL IV ONE (15:00)
--- NOTE | 2020-07-21 15:05 | NUR ---
K 6.3 MEDS GIVEN PER MD ORDER NS BOLUS 500CC NOW PT EMESIS SM ZOFRAN GIVEN
[2020-07-21 15:20] LABS: BACTERIA,URINE 2+ /HPF (None Seen); URINE AMORPHOUS URATE Many /HPF (None Seen)
--- NOTE | 2020-07-21 15:23 | NUR ---
PT TO CT.
[2020-07-21] MEDS ORDERED: SODIUM POLYSTYRENE SULFONATE 15 G/60 ML BOTTLE ONE (15:45)
[2020-07-21] MEDS: SODIUM POLYSTYRENE SULFONATE 15 G/60 ML BOTTLE PO ONE ×2 (15:47→17:07)
--- NOTE | 2020-07-21 16:07 | NUR ---
PAGED DR. CORREA.
[2020-07-21 16:23] LABS: EOSINOPHILS % (MANUAL) 4 % (0-4); LYMPHOCYTES % (MANUAL) 11 % (16-48); MONOCYTES % (MANUAL) 9 % (0-11.0); NEUTROPHILS % (MANUAL) 76 (42-76)
--- NOTE | 2020-07-21 16:25 | NUR ---
pt cleaned sm bm diaper changed vss cont to monitor
[2020-07-21] MEDS ORDERED: ZOLPIDEM TARTRATE 5 MG TABLET PO PRN (19:30)
[2020-07-21] MEDS ORDERED: HYDROCODONE/APAP 5/325MG TABLET PO PRN (19:30)
[2020-07-21] MEDS ORDERED: MAGNESIUM HYDROXIDE 30 ML UDC PO PRN (19:30)
[2020-07-21] MEDS ORDERED: ONDANSETRON HCL/PF 4 MG/2 ML VIAL IVP PRN (19:30)
[2020-07-21] MEDS ORDERED: Z GUARD REMEDY 2 OZ OINT TP PRN (19:30)
--- NOTE | 2020-07-21 19:32 | NUR ---
ASSUMED CARE. PT AAOX4, NO ACUTE DISTRESS NOTED, RESP EVEN AND UNLABORED. NO PAIN OR DISCOMFORT NOTED AT THIS TIME. PT ON CARDIAC MONITORING, CONTINUOUS POX. CALL LIGHT WITHIN REACH. WILL CONTINUE TO MONITOR PT CLOSELY.
[2020-07-21 20:01] LABS: CALCIUM, SERUM 8.8 mg/dL (8.5-10.1); CARBON DIOXIDE 22 mmol/L (21-32); CHLORIDE 110 mmol/L (98-107); CREATININE 1.6 mg/dL (0.6-1.3); GLUCOSE 94 mg/dL (74-106); POTASSIUM 5.8 mmol/L (3.5-5.1); SODIUM SERUM 140 mmol/L (136-145); UREA NITROGEN, BLOOD 30 mg/dL (7-18)
[2020-07-21] MEDS ORDERED: CEFTRIAXONE 1 G in IV D5W 50 ML IV SCH (21:00)
[2020-07-21] MEDS ORDERED: SPIRONOLACTONE 25 MG TABLET ONE (22:25)
[2020-07-21] MEDS: SPIRONOLACTONE 25 MG TABLET PO SCH (22:25)
[2020-07-21] MEDS ORDERED: FUROSEMIDE 20 MG TABLET ONE (22:31)
[2020-07-21] MEDS: FUROSEMIDE 20 MG TABLET PO SCH (22:40)
--- NOTE | 2020-07-21 22:57 | NUR ---
INFORMED BY IR RADIOLOGIST TELESALES TEAM LEADER DR. OLIVER JORDAN AND ER CHARGE NURSE BECCA AT 2044 THAT US GUIDED PARACENTESIS WILL BE DONE TOMORROW MORNING.
--- NOTE | 2020-07-21 23:21 | NUR ---
MEJIA CATH INSERTED PER PT REQUEST, LIZZETH VENTURA AWARE
[2020-07-22] MEDS ORDERED: PIPERACILLIN /TAZOBACTAM 3.375 G in IV D5W 50 ML IV SCH (00:30)
[2020-07-22] MEDS ORDERED: PIPERACILLIN /TAZOBACTAM 3.375 G VIAL IV ONE (00:40)
[2020-07-22] MEDS ORDERED: ONDANSETRON HCL/PF 4 MG/2 ML VIAL ONE (00:57)
--- NOTE | 2020-07-22 00:57 | NUR ---
NOTED PT VOMITING, MEDICATED WITH ZOFRAN 4MG IVP.
--- NOTE | 2020-07-22 01:00 | NUR ---
NOTED PT SOB WITH WHEEZING HEARD BILATERALLY ON AUSCULTATION, ZOSYN 3.37G GM INFUSION STOPPED WITH 25ML'S LEFT IN THE BAG. LIZZETH DIAZ DNP MADE AWARE WITH ORDERS RECEIVED. WILL CARRY OUT ORDERS.
[2020-07-22] MEDS ORDERED: diphenhydrAMINE HCL 50 MG/ML VIAL ONE (01:01)
--- NOTE | 2020-07-22 01:02 | NUR ---
PT MEDICATED WITH BENADRYL 25MG IVP.
--- NOTE | 2020-07-22 01:03 | NUR ---
LIZZETH DIAZ DNP AT BEDSIDE TO SARAH PT WITH ADDITIONAL ORDERS RECEIVED. WILL CARRY OUT ORDERS.
[2020-07-22] MEDS ORDERED: methylPREDNISolone SOD SUCC 125 MG/2ML VIAL ONE (01:11)
[2020-07-22] MEDS ORDERED: FAMOTIDINE/PF INJ 20 MG/2 ML VIAL IV ONE ×2 (01:11→01:30)
[2020-07-22] MEDS ORDERED: LEVOFLOXACIN 250 MG /D5W 50 ML 250 MG in PREMIX 1 EA IV SCH (01:24)
--- NOTE | 2020-07-22 01:26 | NUR ---
TELE BED: 309-9
[2020-07-22] MEDS ORDERED: methylPREDNISolone SOD SUCC 125 MG/2ML VIAL IV ONE (01:30)
[2020-07-22] MEDS ORDERED: MORPHINE SULFATE INJ 2 MG/ML DISP.SYRIN IV PRN (01:30)
--- NOTE | 2020-07-22 02:31 | NUR ---
PT RESTING QUIETLY, NO ACUTE DISTRESS NOTED, RESP EVEN AND UNLABORED. CALL LIGHT WITHIN REACH. WILL CONTINUE TO MONITOR PT CLOSELY.
--- NOTE | 2020-07-22 03:01 | NUR ---
REPORT CALLED TO TELE UTE WHITAKER. WILL TRANSPORT PT VIA ACLS PROTOCOL.
--- NOTE | 2020-07-22 03:45 | NUR ---
TELE BLACK ASH WORKER INITIAL NOTES' ADMIT PT FROM ER VIA LINDA ACCOMPANIED BY ER NURSE AND TECH. DX OF UTI. SHE'S ALERT ORIENTED X3 MOROCCAN AND GIBRALTARIAN SPEAKING. NO SIGNS OF ANY DISTRESS NOTED. SHE'S ON 02 AT 2 LITERS VIA NC. PT ALSO NOTED ABDOMEN DISTENDED BUT DENIES ANY PAIN. RE-ORIENTED WHERE SHE AT AND HOW TO USED THE CALL LIGHT SYSTEM. SINUS RHYTHM ON TELE MONITOR. ASSESSMENT DONE AND RECORDED. KEPT PT ON SEMI FOWLERS POSITION . BED ALARM SET FOR PT SAFETY PLACE CALL LIGHT AT REACH.
[2020-07-22 04:06] VITALS: BP 130/73
[2020-07-22 07:15] LABS: BASOPHILS % (AUTO) 0.1 % (0.0-2.0); EOSINOPHILS % (AUTO) 0.2 % (0.0-6.0); HEMATOCRIT 32 % (33-45); HEMOGLOBIN 9.8 g/dL (11.5-14.8); LYMPHOCYTES # (AUTO) 0.1 /CMM (0.8-4.8); LYMPHOCYTES % (AUTO) 3.4 % (20.0-44.0); MEAN CORPUSCULAR HGB CONC 30 g/dl (31.0-36.0); MEAN CORPUSCULAR VOLUME 98 fL (82-100); MONOCYTES # (AUTO) 0.1 /CMM (0.1-1.30); MONOCYTES % (AUTO) 2.5 % (2.0-12.0); NEUTROPHILS # (AUTO) 4.1 /CMM (1.8-8.9); NEUTROPHILS % (AUTO) 93.8 % (43.0-81.0); PLATELET COUNT (AUTO) 119 /CMM (150-450); RED BLOOD CELL COUNT(AUTO) 3.27 MIL/uL (4.0-5.2); WHITE BLOOD COUNT (AUTO) 4.4 K/uL (4.3-11.0)
[2020-07-22 07:25] LABS: CALCIUM, SERUM 8.8 mg/dL (8.5-10.1); CARBON DIOXIDE 20 mmol/L (21-32); CHLORIDE 110 mmol/L (98-107); CREATININE 1.8 mg/dL (0.6-1.3); GLUCOSE 144 mg/dL (74-106); MAGNESIUM 2.1 mg/dL (1.8-2.4); PHOSPHORUS 3.9 mg/dL (2.5-4.9); SODIUM SERUM 139 mmol/L (136-145); UREA NITROGEN, BLOOD 32 mg/dL (7-18)
--- NOTE | 2020-07-22 07:47 | NUR ---
TELE WATER MAIN INSTALLER HELPER CLOSING NOTES PT RESTING AT THIS TIME WITHOUT ANY ACUTE DISTRESS NOTED. STABLE SINCE SHE CAME UP. TELE STILL SINUS RHYTHM PER MONIOTR. VITAL SIGNS WITHIN NORMAL LIMIT. KEPT HER COMFORTABLE AT ALL TIMES. ENDORSE TO AM NURSE.
[2020-07-22 07:51] LABS: POTASSIUM 6.2 mmol/L (3.5-5.1)
--- NOTE | 2020-07-22 07:53 | NUR ---
OPEN NOTES PATIENT IS SLEEPING WITH NO SIGNS OF DISTRESS IN ROOM AIR. IV R WRIST #18G . ON TELE MONITOR. NO COMPLAIN OF PAIN AT THIS TIME. MEJIA CATH INTACT. CURRENTLY NPO. SAFETY MEASURES ARE APPLIED BED IS IN THE LOWEST POSITION SIDE RAILS UP X 2. CALL LIGHT WITHIN REACH WILL CONTINUE TO MONITOR.
[2020-07-22 08:00] VITALS: BP 103/59
[2020-07-22] MEDS: FUROSEMIDE 20 MG TABLET PO SCH (09:47)
[2020-07-22] MEDS: SPIRONOLACTONE 25 MG TABLET PO SCH (09:47)
[2020-07-22] MEDS: LEVOFLOXACIN 250 MG /D5W 50 ML 250 MG in PREMIX 1 EA IV SCH (10:17)
[2020-07-22] MEDS ORDERED: DEXTROSE 50%-WATER 50 ML DISP.SYRIN IVP ONE (12:00)
[2020-07-22] MEDS ORDERED: INSULIN REGULAR, HUMAN 100 UNIT/ML 10 ML VIAL IV ONE (12:00)
[2020-07-22 16:00] VITALS: BP 130/67
--- NOTE | 2020-07-22 16:40 | NUR ---
INFORMED CÉSAR AL PATIENT POTASSIUM 6.1, SERVANDO WILL BE PUTTING ORDERS. WAITING FOR ORDERS.
[2020-07-22 17:17] LABS: CALCIUM, SERUM 8.3 mg/dL (8.5-10.1); CARBON DIOXIDE 18 mmol/L (21-32); CHLORIDE 108 mmol/L (98-107); CREATININE 1.9 mg/dL (0.6-1.3); GLUCOSE 328 mg/dL (74-106); POTASSIUM 6.1 mmol/L (3.5-5.1); SODIUM SERUM 136 mmol/L (136-145); UREA NITROGEN, BLOOD 33 mg/dL (7-18)
--- NOTE | 2020-07-22 19:47 | NUR ---
CLOSING NOTES PATIENT IS A/O X2-3 WITH NO SIGNS OF DISTRESS IN ROOM AIR. IV L FA #20G . ON TELE MONITOR. NO COMPLAIN OF PAIN AT THIS TIME. MEJIA CATH INTACT. PATIENT KEPT CLEAN AND DRY. ALL NEEDS, CARE, TREATMENT, AND MEDICATIONS WERE ADMINISTERED ANTICIPATED PER ORDER. SAFETY MEASURES ARE APPLIED, BED IS IN LOW POSITION SIDE RAILS UP X 2. CALL LIGHT WITHIN REACH WILL ENDORSE TO THE PRECISION PRINTING WORKER NURSE.
[2020-07-22 20:00] VITALS: BP 110/56
[2020-07-22 23:43] LABS: BILIRUBIN,URINE NEGATIVE (NEGATIVE); COLOR,URINE YELLOW (YELLOW); LEUKOCYTE ESTERASE ,URINE NEGATIVE (NEGATIVE); NITRITE, URINE NEGATIVE (NEGATIVE); PH,URINE 5.5 (5.0-8.0); PROTEIN,URINE 30 mg/dl (NEGATIVE); UGLUCOSE NEGATIVE (NEGATIVE); UROBILINOGEN,URINE 0.2 EU/dL (0.2)
[2020-07-22 23:55] LABS: BACTERIA,URINE 3+ /HPF (None Seen); WBC,URINE 21-50 /HPF (0-3)
[2020-07-22 23:56] LABS: SQUAMOUS EPITHELIAL CELL,UR Many /HPF (None Seen); URINE AMORPHOUS URATE Many /HPF (None Seen)
[2020-07-23] VITALS: BP 139/64
[2020-07-23 00:21] LABS: EOSINOPHIL,URINE None Seen
[2020-07-23 00:24] LABS: CREATININE, URINE 83.4 MG/DL (30.0-125.0); URINE TOTAL PROTEIN 108.2 mg/dL (0-11.9)
[2020-07-23 04:00] VITALS: BP 133/66
[2020-07-23 06:29] LABS: BASOPHILS % (AUTO) 0.2 % (0.0-2.0); EOSINOPHILS % (AUTO) 0.1 % (0.0-6.0); HEMATOCRIT 29 % (33-45); HEMOGLOBIN 8.8 g/dL (11.5-14.8); LYMPHOCYTES # (AUTO) 0.2 /CMM (0.8-4.8); LYMPHOCYTES % (AUTO) 4.4 % (20.0-44.0); MEAN CORPUSCULAR HGB CONC 30 g/dl (31.0-36.0); MEAN CORPUSCULAR VOLUME 98 fL (82-100); MONOCYTES # (AUTO) 0.2 /CMM (0.1-1.30); MONOCYTES % (AUTO) 5.4 % (2.0-12.0); NEUTROPHILS # (AUTO) 3.8 /CMM (1.8-8.9); NEUTROPHILS % (AUTO) 89.9 % (43.0-81.0); PLATELET COUNT (AUTO) 108 /CMM (150-450); RED BLOOD CELL COUNT(AUTO) 2.95 MIL/uL (4.0-5.2); WHITE BLOOD COUNT (AUTO) 4.2 K/uL (4.3-11.0)
[2020-07-23 07:13] LABS: CALCIUM, SERUM 8.4 mg/dL (8.5-10.1); CARBON DIOXIDE 20 mmol/L (21-32); CHLORIDE 109 mmol/L (98-107); CREATININE 1.9 mg/dL (0.6-1.3); GLUCOSE 215 mg/dL (74-106); MAGNESIUM 2.1 mg/dL (1.8-2.4); PHOSPHORUS 4.1 mg/dL (2.5-4.9); SODIUM SERUM 138 mmol/L (136-145); UREA NITROGEN, BLOOD 39 mg/dL (7-18)
[2020-07-23 07:19] LABS: THYROID STIMULATING HORMONE 5.34 uIU/mL (0.358-3.74)
--- NOTE | 2020-07-23 07:50 | NUR ---
MS/RN Opening note Patient received from aerospace mechanic. A/O X2, confused, saturation on room air >95%. Heplock to left hand flushing well with normal saline, no signs of infiltration seen. Arthur catheter draining clear yellow colored urine, no sediments seen. Refusing to keep tele monitor attached, MD already aware. Safety measures in place, bed in low setting, side rails X3 in upright position, bed alarm switched on. Call light within reach, will continue to monitor and ensure safety.
[2020-07-23 08:00] VITALS: BP 110/54
[2020-07-23] MEDS: FUROSEMIDE 20 MG TABLET PO SCH (08:22)
[2020-07-23] MEDS: LEVOFLOXACIN 250 MG /D5W 50 ML 250 MG in PREMIX 1 EA IV SCH (08:22)
[2020-07-23 08:40] LABS: POTASSIUM 6.6 mmol/L (3.5-5.1)
--- NOTE | 2020-07-23 09:29 | NUR ---
MS/RN Orders Order given for kayexelate 30gm for potassium level of 6.6
[2020-07-23] MEDS ORDERED: SODIUM POLYSTYRENE SULFONATE 15 G/60 ML BOTTLE PO ONE (09:30)
--- NOTE | 2020-07-23 10:00 | NUR ---
MS/RN Kayexelate Kayexelate 30gm taken as ordered. Repeat labs ordered for tomorrow.
[2020-07-23 12:00] VITALS: BP 147/68
--- NOTE | 2020-07-23 13:06 | NUR ---
MS/RN S/B Sherrie Crain NP Seen by FOUNTAIN HELPER - repeat labs ordered for tomorrow.
[2020-07-23 16:00] VITALS: BP 109/54
--- NOTE | 2020-07-23 18:29 | NUR ---
MS/RN End note Patient remains in stable condition, all needs attended. Repeat potassium level ordered for 7p. Will endorse to customer quality engineer.
--- NOTE | 2020-07-23 19:40 | NUR ---
ANNIE ADEN SPEAKING ONLY UNCOOPERATIVE AT THIS TIME. REFUSED BLOOD DRAW FOR REPEAT K LEVEL.
[2020-07-23 20:00] VITALS: BP 145/70
--- NOTE | 2020-07-23 22:00 | NUR ---
TELERN AGREED TO HAVE BLOOD DRAW FOR K LEVEL. PER TRANSLATION FROM STAFF, PATIENT REFUSED TO TURN OR REPOSITION. INITAILLY WANTED TYLENOL FOR SACRAL SORENESS BUT REFUSED TO TAKE MED. TOOK AWHILE TO CONVINCE TO BE REPOSITIONED. CONTINUED MONITORING
[2020-07-24] VITALS (7 sets, daily range): BP systolic 110–146; BP diastolic 42–71
--- NOTE | 2020-07-24 02:56 | NUR ---
TELERN SLEEPING APPEARS COMFORTABLE/CLOSELY WATCHED
--- NOTE | 2020-07-24 04:29 | NUR ---
TELERN SEEN EARLIER BY CÉSAR DIAZ AWARE OF REPEAT K LEVEL 5.9, NO FURTHER ORDERS.
--- NOTE | 2020-07-24 06:40 | NUR ---
TELERN REFUSED ANYTHING ORAL. REFUSED BLOOD DRAW AT THIS TIME.
[2020-07-24 06:48] LABS: BASOPHILS % (AUTO) 0.2 % (0.0-2.0); HEMATOCRIT 29 % (33-45); HEMOGLOBIN 8.9 g/dL (11.5-14.8); LYMPHOCYTES # (AUTO) 0.4 /CMM (0.8-4.8); LYMPHOCYTES % (AUTO) 8.2 % (20.0-44.0); MEAN CORPUSCULAR HGB CONC 31 g/dl (31.0-36.0); MEAN CORPUSCULAR VOLUME 97 fL (82-100); MONOCYTES # (AUTO) 0.3 /CMM (0.1-1.30); MONOCYTES % (AUTO) 5.9 % (2.0-12.0); NEUTROPHILS # (AUTO) 3.9 /CMM (1.8-8.9); NEUTROPHILS % (AUTO) 83.7 % (43.0-81.0); PLATELET COUNT (AUTO) 105 /CMM (150-450); RED BLOOD CELL COUNT(AUTO) 2.98 MIL/uL (4.0-5.2); WHITE BLOOD COUNT (AUTO) 4.6 K/uL (4.3-11.0)
[2020-07-24 07:23] LABS: CALCIUM, SERUM 8.3 mg/dL (8.5-10.1); CARBON DIOXIDE 21 mmol/L (21-32); CHLORIDE 109 mmol/L (98-107); CREATININE 2.1 mg/dL (0.6-1.3); GLUCOSE 116 mg/dL (74-106); MAGNESIUM 2.1 mg/dL (1.8-2.4); PHOSPHORUS 3.9 mg/dL (2.5-4.9); POTASSIUM 5.5 mmol/L (3.5-5.1); SODIUM SERUM 138 mmol/L (136-145); UREA NITROGEN, BLOOD 41 mg/dL (7-18)
--- NOTE | 2020-07-24 08:00 | NUR ---
TELE/RN OPENING NOTES RECEIVED PATIENT ON BED AWAKE ALERT AND ORIENTED X 2-3. PATIENT IN NO APPARENT RESPIRATORY DISTRESS NOTED. NO COMPLAINED OF PAIN NOTED AT THIS TIME. TELE MONITOR READING IDIOVENTRICULAR RHYTHM, FAILURE TO CAPTURE BBB PACEMAKER 65 BPM. WILL CONTINUE TO MONITOR.
[2020-07-24] MEDS: LEVOFLOXACIN 250 MG /D5W 50 ML 250 MG in PREMIX 1 EA IV SCH (08:42)
[2020-07-24] MEDS: FUROSEMIDE 20 MG TABLET PO SCH (08:42)
[2020-07-24] MEDS ORDERED: MECLIZINE HCL 25 MG TABLET PO PRN (13:00)
[2020-07-24] MEDS ORDERED: ACETAMINOPHEN 325 MG TABLET PO PRN (13:00)
[2020-07-24] MEDS: MISOPROSTOL 100 MCG TABLET PO SCH ×3 (13:00→21:00)
[2020-07-24] MEDS ORDERED: SODIUM POLYSTYRENE SULFONATE 15 G/60 ML BOTTLE PO ONE (13:00)
[2020-07-24] MEDS ORDERED: Medication Not On Formulary EA (Budesonide/Formoterol Fumarate (Symbicort 160-4.5 Mcg In IH PRN (13:00)
[2020-07-24] MEDS: ISOSORBIDE DINITRATE (20MG) 20 MG TABLET PO SCH ×2 (13:26→16:35)
--- NOTE | 2020-07-24 18:35 | NUR ---
TELE/RN CLOSING NOTES PATIENT IS ON BED. ALERT AND ORIENTED X4. PATIENT IN NO APPARENT RESPIRATORY DISTRESS NOTED. NO COMPLAINED OF PAIN NOTED AT THIS TIME. IV ACCESS AT LEFT HAND #20 G PATENT AND INTACT. TELE MONITOR READING BBB IDIOVENTRICULAR RHYTHM, FAILURE TO FIRE PACEMAKER 65 BPM. SEEN AND EXAMINED BY MD WITH ORDERS MADE AND CARRIED OUT. ALL DUE MEDICATIONS WAS GIVEN. SAFETY PRECAUTIONS WAS IN IN PLACED. SIDERAILS UP X2. BED IN LOWEST POSITION AND LOCKED. CALL LIGHT WITHIN REACH. WILL ENDORSED TO FINANCIAL REPORTING DIRECTOR FOR HOMER.
--- NOTE | 2020-07-24 19:00 | NUR ---
RN NOTE Patient Received. Patient is noted in bed, awake, alert and oriented x2. Breathing even and non labored currently on room air. No signs of acute distress or shortness of breath. IV site is to L Hand 20G noted to be patent and intact. Patient continues on tele monitor and noted with BBB idioventricular rhythm, failure to fire pacemaker. Patient is noted with talley catheter noted to be draining clear yellow urine. All safety precautions implemented with bed in lowest position and locked. Call light within reach. All needs attended to promptly. Will continue plan of care as ordered.
[2020-07-24] MEDS: PROPRANOLOL HCL 10 MG TABLET PO SCH (21:44)
--- NOTE | 2020-07-24 22:00 | NUR ---
RN NOTE Patient noted with order for Misoprostol 100mcg. Medication not on unit. RN repair supervisor aware. Nursing repair supervisor aware and unable to locate medication.
[2020-07-24] MEDS: ACETAMINOPHEN 325 MG TABLET PO PRN (23:28)
--- NOTE | 2020-07-24 23:50 | NUR ---
RN NOTE Patient is noted with distended abdomen, noted with shortness of breath, placed on 2L of O2 Via NC with saturation of 95%. Patient was reposition for comfort. as requested with head of bed elevated and on patients left side. Arthur catheter is patent. Relayed information to Dr. Kirk with no new orders at the moment. Will continue to monitor.
[2020-07-25 00:35] VITALS: BP 124/75
[2020-07-25] MEDS: IPRATROPIUM NEB FS 0.5 MG/2.5 ML AMPUL.NEB IH SCH ×2 (01:30→07:35)
--- NOTE | 2020-07-25 04:30 | NUR ---
RN NOTE Patient is currently on room air tolerating well with saturation of 96%. No acute distress or shortness of breath. Will continue to monitor.
[2020-07-25 04:36] VITALS: BP 114/59
--- NOTE | 2020-07-25 06:47 | NUR ---
RN NOTE Patient is noted in bed, awake, alert and oriented x2. Breathing even and non labored currently on room air. No signs of acute distress or shortness of breath. IV site is to L Hand 20G noted to be patent and intact. Patient continues on tele monitor and noted with BBB idioventricular rhythm, failure to fire pacemaker. Patient is noted with talley catheter noted to be draining clear yellow urine. All safety precautions implemented with bed in lowest position and locked. Call light within reach. All needs attended to promptly. Will endorse to continue plan of care as ordered.
[2020-07-25 06:56] LABS: BASOPHILS % (AUTO) 0.4 % (0.0-2.0); EOSINOPHILS % (AUTO) 2.6 % (0.0-6.0); HEMATOCRIT 26 % (33-45); LYMPHOCYTES # (AUTO) 0.4 /CMM (0.8-4.8); LYMPHOCYTES % (AUTO) 10.8 % (20.0-44.0); MEAN CORPUSCULAR HGB CONC 31 g/dl (31.0-36.0); MEAN CORPUSCULAR VOLUME 97 fL (82-100); MONOCYTES # (AUTO) 0.2 /CMM (0.1-1.30); MONOCYTES % (AUTO) 6.7 % (2.0-12.0); NEUTROPHILS % (AUTO) 79.5 % (43.0-81.0); PLATELET COUNT (AUTO) 91 /CMM (150-450); RED BLOOD CELL COUNT(AUTO) 2.67 MIL/uL (4.0-5.2); WHITE BLOOD COUNT (AUTO) 3.7 K/uL (4.3-11.0)
[2020-07-25 07:06] LABS: CALCIUM, SERUM 8.1 mg/dL (8.5-10.1); CARBON DIOXIDE 24 mmol/L (21-32); CHLORIDE 110 mmol/L (98-107); GLUCOSE 117 mg/dL (74-106); MAGNESIUM 1.9 mg/dL (1.8-2.4); PHOSPHORUS 3.6 mg/dL (2.5-4.9); POTASSIUM 4.8 mmol/L (3.5-5.1); SODIUM SERUM 140 mmol/L (136-145); UREA NITROGEN, BLOOD 41 mg/dL (7-18)
[2020-07-25] MEDS ORDERED: PANTOPRAZOLE 40 MG TABLET.DR PO SCH (07:30)
--- NOTE | 2020-07-25 07:30 | NUR ---
received pt. this am alert and oriented x2.indonesian speaking.side rails up call murdock within reach.vs stable.
[2020-07-25 08:00] VITALS: BP 141/61
[2020-07-25] MEDS ORDERED: FUROSEMIDE 20 MG TABLET PO SCH (09:00)
[2020-07-25] MEDS ORDERED: SPIRONOLACTONE 25 MG TABLET PO SCH (09:00)
[2020-07-25] MEDS ORDERED: ENALAPRIL MALEATE (5 MG) 5 MG TABLET PO SCH (09:00)
[2020-07-25] MEDS ORDERED: LINAGLIPTIN 5 MG TABLET PO SCH (09:00)
[2020-07-25] MEDS ORDERED: ATORVASTATIN 10 MG TABLET PO SCH (09:00)
[2020-07-25] MEDS: ISOSORBIDE DINITRATE (20MG) 20 MG TABLET PO SCH ×4 (09:06→18:27)
[2020-07-25] MEDS: PROPRANOLOL HCL 10 MG TABLET PO SCH (09:07)
[2020-07-25] MEDS: LEVOFLOXACIN 250 MG /D5W 50 ML 250 MG in PREMIX 1 EA IV SCH (09:12)
[2020-07-25] MEDS: MISOPROSTOL 100 MCG TABLET PO SCH ×4 (10:41→18:27)
[2020-07-25] MEDS: ACETAMINOPHEN 325 MG TABLET PO PRN (10:41)
[2020-07-25 16:00] VITALS: BP 123/72
[2020-07-25] MEDS ORDERED: ACET325T53 PO (16:16)
[2020-07-25] MEDS ORDERED: MAGN400O6 PO (16:16)
[2020-07-25] MEDS ORDERED: Levofloxacin (250MG) PO (16:16)
--- NOTE | 2020-07-25 18:00 | NUR ---
PT. REFUSED DC PHOTOS.
[2020-07-25 18:35] VITALS: BP 117/84
--- NOTE | 2020-07-25 19:10 | NUR ---
tele dc'd.hep lock out. report to amb. non cdl driver.report called to facility. all papers signed.taken via amb. to facility.
[2020-07-26] MEDS ORDERED: LEVOFLOXACIN (250MG) 250 MG TABLET PO SCH (09:00)
== END 2020-07-25 20:02 | DRG 432 ==
LOC: ER 12:24 → TRANSITION 20:33 → OBSVTOIN 20:33 → TELE 07-22 01:40
PROVIDERS: ADMIT Nurse Practitioner Acute Care; ATTEND Registered Nurse
PROC: 0W9G3ZZ Drainage of Peritoneal Cavity, Percutaneous Approach (ICD-10-PCS; principal; 2020-07-21)
PROC: BW40ZZZ Ultrasonography of Abdomen (ICD-10-PCS; 2020-07-21)
DX: K74.60 Unspecified cirrhosis of liver (principal); N17.0 Acute kidney failure with tubular necrosis; I13.0 Hypertensive heart and chronic kidney disease with heart failure and stage 1 through stage 4 chronic kidney disease, or unspecified chronic kidney disease; N39.0 Urinary tract infection, site not specified; D68.59 Other primary thrombophilia; K76.6 Portal hypertension; R18.8 Other ascites; E44.0 Moderate protein-calorie malnutrition; J98.11 Atelectasis; K80.10 Calculus of gallbladder with chronic cholecystitis without obstruction; G93.40 Encephalopathy, unspecified; J90 Pleural effusion, not elsewhere classified; D63.1 Anemia in chronic kidney disease; E11.22 Type 2 diabetes mellitus with diabetic chronic kidney disease; I25.10 Atherosclerotic heart disease of native coronary artery without angina pectoris; I50.9 Heart failure, unspecified; N28.1 Cyst of kidney, acquired; N18.9 Chronic kidney disease, unspecified; I27.20 Pulmonary hypertension, unspecified; E87.5 Hyperkalemia; Z86.73 Personal history of transient ischemic attack (TIA), and cerebral infarction without residual deficits; F03.90 Unspecified dementia, unspecified severity, without behavioral disturbance, psychotic disturbance, mood disturbance, and anxiety; E03.9 Hypothyroidism, unspecified; E78.5 Hyperlipidemia, unspecified; I25.2 Old myocardial infarction; Z83.3 Family history of diabetes mellitus; I48.91 Unspecified atrial fibrillation; E11.42 Type 2 diabetes mellitus with diabetic polyneuropathy; M81.0 Age-related osteoporosis without current pathological fracture; M19.90 Unspecified osteoarthritis, unspecified site; F29 Unspecified psychosis not due to a substance or known physiological condition; E66.9 Obesity, unspecified; K42.9 Umbilical hernia without obstruction or gangrene; K57.90 Diverticulosis of intestine, part unspecified, without perforation or abscess without bleeding; K59.00 Constipation, unspecified; Z95.1 Presence of aortocoronary bypass graft; Z95.5 Presence of coronary angioplasty implant and graft; Z90.49 Acquired absence of other specified parts of digestive tract; Z87.440 Personal history of urinary (tract) infections; Z87.11 Personal history of peptic ulcer disease; Z82.49 Family history of ischemic heart disease and other diseases of the circulatory system; Z79.899 Other long term (current) drug therapy; Z79.51 Long term (current) use of inhaled steroids; Z68.35 Body mass index [BMI] 35.0-35.9, adult; Z88.1 Allergy status to other antibiotic agents; Z79.84 Long term (current) use of oral hypoglycemic drugs; Z95.0 Presence of cardiac pacemaker; H26.9 Unspecified cataract; R42 Dizziness and giddiness; I08.0 Rheumatic disorders of both mitral and aortic valves; K29.70 Gastritis, unspecified, without bleeding; K21.00 Gastro-esophageal reflux disease with esophagitis, without bleeding; E53.8 Deficiency of other specified B group vitamins; I70.8 Atherosclerosis of other arteries; M51.36 Other intervertebral disc degeneration, lumbar region; M79.7 Fibromyalgia; Z74.09 Other reduced mobility; B96.89 Other specified bacterial agents as the cause of diseases classified elsewhere
CPT/HCPCS: 36415; 71045-TC; 76942-TC; 80048-TC; 80076-TC; 81001; 82140-TC; 82570-TC; 82728-TC; 82962-TC; 83540-TC; 83605-TC; 83690-TC; 83735-TC; 84100-TC; 84132-TC; 84155-TC; 84300-TC; 84439-TC; 84443-TC; 84481; 84484-TC; 85025-TC; 85730-TC; 87081-TC; 87086-TC; A4216; C9803; G0378; J0696; J1200; J1815; J1940; J1956; J2270; J2405; J2543; J2930; J3490; J7040; J7050; J7060

== ENCOUNTER 2020-08-15 23:18 | Inpatient (IN) | payer MEDICARE, OTHER ==
[~2020-08-15] VITALS: Ht 165.1 cm; Wt 82.6 kg
[~2020-08-15 23:18] MED LIST changes: +ACET325T53 PO; -AMLO-212 PO; -ENAL2.5T70 PO; -HYDR-4076 PO; -LEVO125T8 PO; +Levofloxacin (250MG) PO; +MAGN400O6 PO
--- NOTE | 2020-08-15 23:25 | NUR ---
PT BIBPA FROM SNF C/O ABNORMAL LABS, PER RA, POTASSIUM 6.5. ALSO C/O ABDOMEN MORE DISTENDED THAN NORMAL, HX ASCITES. PT AWAKE, GERMAN SPEAKING. VITAL SIGNS STABLE. RESPIRATIONS EVEN AND UNLABORED. NO ACUTE DISTRESS NOTED AT THIS TIME. PLACED IN GOWN AND ON MONITOR, WILL CONTINUE TO MONITOR
--- NOTE | 2020-08-15 23:55 | NUR ---
IV INITIATED R HAND 20G. LABS DRAWN FROM SITE. PATHOLOGY SUPERVISOR AT BEDSIDE FOR COLLECTION. IV INTACT AND PATENT, PLACED ON SALINE LOCK
[2020-08-16] MEDS ORDERED: MORPHINE SULFATE INJ 2 MG/ML DISP.SYRIN IV ONE
[2020-08-16 00:05] LABS: BASOPHILS % (AUTO) 0.5 % (0.0-2.0); EOSINOPHILS % (AUTO) 1.4 % (0.0-6.0); HEMATOCRIT 29 % (33-45); LYMPHOCYTES # (AUTO) 0.6 /CMM (0.8-4.8); LYMPHOCYTES % (AUTO) 23.1 % (20.0-44.0); MEAN CORPUSCULAR HGB CONC 31 g/dl (31.0-36.0); MEAN CORPUSCULAR VOLUME 94 fL (82-100); MONOCYTES # (AUTO) 0.2 /CMM (0.1-1.30); NEUTROPHILS # (AUTO) 1.8 /CMM (1.8-8.9); PLATELET COUNT (AUTO) 122 /CMM (150-450); RED BLOOD CELL COUNT(AUTO) 3.11 MIL/uL (4.0-5.2); WHITE BLOOD COUNT (AUTO) 2.7 K/uL (4.3-11.0)
[2020-08-16] MEDS ORDERED: Calcium Gluconate 0.465 MEQ/ML VIAL IV ONE (00:06)
[2020-08-16] MEDS ORDERED: SODIUM BICARBONATE SYR 50 MEQ/50 ML DISP.SYRIN ONE (00:06)
[2020-08-16] MEDS ORDERED: MORPHINE SULFATE INJ 4 MG/ML DISP.SYRIN ONE (00:07)
[2020-08-16] MEDS ORDERED: ONDANSETRON HCL/PF 4 MG/2 ML VIAL ONE (00:07)
[2020-08-16 00:20] LABS: CALCIUM, SERUM 8.5 mg/dL (8.5-10.1); CARBON DIOXIDE 20 mmol/L (21-32); CHLORIDE 108 mmol/L (98-107); CREATININE 1.9 mg/dL (0.6-1.3); GLUCOSE 113 mg/dL (74-106); SODIUM SERUM 138 mmol/L (136-145); UREA NITROGEN, BLOOD 50 mg/dL (7-18)
--- NOTE | 2020-08-16 00:20 | NUR ---
COVID AND FLU SWABS COLLECTED AND SENT TO LAB
--- NOTE | 2020-08-16 00:23 | NUR ---
K 6.4
[2020-08-16 00:26] LABS: ALANINE AMINOTRANSFERASE < 6 U/L (12-78); ALBUMIN 2.3 g/dL (3.4-5.0); ALKALINE PHOSPHATASE 98 U/L (46-116); ASPARTATE AMINOTRANSFERASE 17 U/L (15-37); BILIRUBIN,DIRECT 0.3 mg/dL (0.0-0.2); BILIRUBIN,TOTAL 0.6 mg/dL (0.2-1.0); LIPASE 254 U/L (73-393); TOTAL PROTEIN, SERUM 7.3 g/dL (6.4-8.2)
[2020-08-16] MEDS ORDERED: IPRATROPIUM NEB FS 0.5 MG/2.5 ML AMPUL.NEB ONE (00:27)
[2020-08-16] MEDS ORDERED: ALBUTEROL FS 2.5 MG/3 ML VIAL.NEB ONE (00:27)
[2020-08-16 00:28] LABS: POTASSIUM 6.4 mmol/L (3.5-5.1)
[2020-08-16] MEDS ORDERED: SODIUM BICARBONATE SYR 50 MEQ/50 ML DISP.SYRIN IV ONE (00:30)
[2020-08-16] MEDS ORDERED: ALBUTEROL FS 2.5 MG/3 ML VIAL.NEB NEB ONE (00:30)
[2020-08-16] MEDS ORDERED: Calcium Gluconate 1GM/10ML 4.65 MEQ in IV D5W 50 ML IV ONE (00:30)
[2020-08-16] MEDS ORDERED: ONDANSETRON HCL/PF - ER 4 MG/2 ML VIAL IV ONE (00:30)
[2020-08-16] MEDS ORDERED: IPRATROPIUM NEB FS 0.5 MG/2.5 ML AMPUL.NEB NEB ONE (00:30)
--- NOTE | 2020-08-16 00:33 | NUR ---
RT AT BEDSIDE FOR BREATHING TREATMENT
--- NOTE | 2020-08-16 00:35 | NUR ---
RADIOLOGY AT BEDSIDE FOR CXR
--- NOTE | 2020-08-16 00:40 | NUR ---
BROUGHT BY RADIOLOGY TO CT
[2020-08-16] MEDS ORDERED: FUROSEMIDE 40 MG/4 ML VIAL ONE (00:53)
--- NOTE | 2020-08-16 00:57 | NUR ---
LAB CALLED WITH + COVID RESULT
[2020-08-16] MEDS ORDERED: FUROSEMIDE 40 MG/4 ML VIAL IV ONE (01:00)
--- NOTE | 2020-08-16 01:09 | NUR ---
URINE COLLECTED VIA MEJIA CATH AND SENT TO LAB
[2020-08-16] MEDS ORDERED: LACTULOSE 10 G/15 ML UDC (PYXIS) ONE (01:18)
[2020-08-16] MEDS ORDERED: DEXTROSE 50%-WATER 50 ML DISP.SYRIN ONE (01:18)
[2020-08-16] MEDS ORDERED: INSULIN REGULAR, HUMAN 100 UNIT/ML 10 ML VIAL ONE (01:19)
[2020-08-16] MEDS ORDERED: DEXTROSE 50%-WATER 50 ML DISP.SYRIN IVP ONE (01:30)
[2020-08-16] MEDS ORDERED: LACTULOSE 10 G/15 ML UDC (PYXIS) PO ONE (01:30)
[2020-08-16] MEDS ORDERED: INSULIN REGULAR, HUMAN 100 UNIT/ML 10 ML VIAL IV ONE (01:30)
[2020-08-16] MEDS ORDERED: LEVOFLOXACIN 500 MG /D5W 100ML 500 MG/100 ML PIGGYBACK IV ONE (02:00)
[2020-08-16] MEDS ORDERED: LEVOFLOXACIN 500 MG /D5W 100ML 100 ML IV ONE (02:12)
[2020-08-16] MEDS ORDERED: LEVOFLOXACIN 500 MG /D5W 100ML 500 MG in PREMIX 1 EA IV SCH (02:30)
[2020-08-16] MEDS ORDERED: ALBUTEROL SULFATE 8 GM HFA.AER.AD IH PRN (02:30)
--- NOTE | 2020-08-16 02:31 | NUR ---
NOTED HYPOTENSION. MD AWARE
[2020-08-16] MEDS ORDERED: ONDANSETRON HCL/PF 4 MG/2 ML VIAL IVP PRN (03:00)
[2020-08-16] MEDS ORDERED: Medication Not On Formulary EA (Budesonide/Formoterol Fumarate (Symbicort 160-4.5 Mcg In IH PRN (03:00)
[2020-08-16] MEDS ORDERED: MAGNESIUM HYDROXIDE 30 ML UDC PO PRN (03:00)
[2020-08-16 05:39] LABS: CALCIUM, SERUM 8.1 mg/dL (8.5-10.1); CARBON DIOXIDE 24 mmol/L (21-32); CHLORIDE 108 mmol/L (98-107); GLUCOSE 105 mg/dL (74-106); MAGNESIUM 1.8 mg/dL (1.8-2.4); PHOSPHORUS 3.6 mg/dL (2.5-4.9); POTASSIUM 5.9 mmol/L (3.5-5.1); SODIUM SERUM 140 mmol/L (136-145); UREA NITROGEN, BLOOD 49 mg/dL (7-18)
[2020-08-16 05:42] LABS: CREATINE KINASE, TOTAL 27 U/L (26-192)
--- NOTE | 2020-08-16 07:05 | NUR ---
PT SLEEPING COMFORTABLY IN BED, EASILY AROUSABLE. RESPIRATIONS EVEN AND UNLABORED. NO ACUTE DISTRESS NOTED AT THIS TIME. STILL ON MONITOR, WILL CONTINUE TO MONITOR
[2020-08-16] MEDS: PANTOPRAZOLE 40 MG TABLET.DR PO SCH (07:30)
--- NOTE | 2020-08-16 07:31 | NUR ---
REPORT GIVEN TO BHARGAVI HEWITT FOR HOMER
[2020-08-16 08:02] LABS: C-REACTIVE PROTEIN 5.7 mg/dL (0.0-0.9)
[2020-08-16] MEDS ORDERED: ATORVASTATIN 10 MG TABLET ONE (08:16)
[2020-08-16] MEDS ORDERED: PANTOPRAZOLE 40 MG TABLET.DR PO ONE (08:16)
[2020-08-16] MEDS ORDERED: ISOSORBIDE DINITRATE (10MG) 10 MG TABLET ONE (08:17)
[2020-08-16] MEDS ORDERED: SPIRONOLACTONE 25 MG TABLET ONE (08:17)
[2020-08-16] MEDS ORDERED: PROPRANOLOL HCL 10 MG TABLET ONE (08:17)
[2020-08-16] MEDS: ATORVASTATIN 10 MG TABLET PO SCH (08:42)
[2020-08-16] MEDS ORDERED: SPIRONOLACTONE 25 MG TABLET PO SCH (09:00)
[2020-08-16] MEDS: PROPRANOLOL HCL 10 MG TABLET PO SCH ×2 (09:00→20:47)
[2020-08-16] MEDS: ISOSORBIDE DINITRATE (20MG) 20 MG TABLET PO SCH ×3 (09:00→16:36)
--- NOTE | 2020-08-16 09:20 | NUR ---
PT ASLEEP, EASILY AWAKEN BY VERBAL STIMULI. RR EVEN & UNLABORED. NAD NOTED AT THIS TIME. WILL CONT TO MONITOR.
[2020-08-16] MEDS: MISOPROSTOL 100 MCG TABLET PO SCH ×4 (09:59→20:47)
[2020-08-16] MEDS: LINAGLIPTIN 5 MG TABLET PO SCH (09:59)
[2020-08-16] MEDS ORDERED: SODIUM POLYSTYRENE SULFONATE 15 G/60 ML BOTTLE PO ONE (10:00)
--- NOTE | 2020-08-16 10:01 | NUR ---
BED 111-1
--- NOTE | 2020-08-16 10:31 | NUR ---
PT SIGNED CONSENT FORM FOR ULTRASOUND GUIDED ABD PARACENTESIS. RUBBISH COLLECTOR AT BS AWAITING RADIOLOGIST.
[2020-08-16 12:00] VITALS: BP 129/84
[2020-08-16] MEDS ORDERED: SODIUM POLYSTYRENE SULFONATE 15 G/60 ML BOTTLE ONE (12:02)
--- NOTE | 2020-08-16 12:29 | NUR ---
REPORT GIVEN TO BHARGAVI RICHTER FOR HOMER.
[2020-08-16 12:45] VITALS: BP 129/84
--- NOTE | 2020-08-16 12:45 | NUR ---
TELE/RN ADMITTING NOTE Patient transferred safely to bed at room 111-1 via gurney.A&O x 3, Tuvaluan speaking. Denies any pain/discomfort at this time. Breathing even and non-labored on RA, no SOB noted, saturating at 100%. No cardiac distress noted, on tele monitor reading SR 64. IV accesses noted on L hand #20g, and R hand #20g, both patent and intact, and flushing well. Arthur in place, draining clear yellow urine well. Photos of skin impairments taken and placed on chart. No belongings noted. Bed locked to its lowest position, side rails x 2 up, bed alarm on. Will continue with current medical management. Addendum: 08/16/20 at 1739 by NEELAM SOTO RN CORRECTION: JUNCTIONAL RHYTHM 64
[2020-08-16 16:00] VITALS: BP 109/46
--- NOTE | 2020-08-16 16:00 | NUR ---
TELE/RN NOTE Patient's VTE score is 3, clarified Dr. Kim on whether he wants to order chem prophylaxis since patient is on misopristol for hx of gastric ulcer/GI bleed. Per MD, compression boots only. Order carried out.
--- NOTE | 2020-08-16 18:33 | NUR ---
TELE/RN CLOSING NOTE Patient awake in bed, A&O x 3. All needs met and attended to. Denies any pain/discomfort at this time. Breathing even and non-labored on RA, no SOB noted, saturating at 100%. No cardiac distress noted, on tele monitor reading junctional rhythm 65. IV accesses noted on L hand #20g, and R hand #20g, both patent and intact, and flushing well. Arthur in place, draining clear yellow urine well. Fall precautions maintained. Will endorse to police shift commander nurse.
[2020-08-16 20:00] VITALS: BP 107/46
[2020-08-17] VITALS: BP 107/46
[2020-08-17 04:00] VITALS: BP 118/47
[2020-08-17 06:41] LABS: BASOPHILS % (AUTO) 0.2 % (0.0-2.0); EOSINOPHILS % (AUTO) 1.3 % (0.0-6.0); HEMATOCRIT 25 % (33-45); HEMOGLOBIN 7.9 g/dL (11.5-14.8); LYMPHOCYTES # (AUTO) 0.5 /CMM (0.8-4.8); LYMPHOCYTES % (AUTO) 24.8 % (20.0-44.0); MEAN CORPUSCULAR HGB CONC 32 g/dl (31.0-36.0); MEAN CORPUSCULAR VOLUME 92 fL (82-100); MONOCYTES # (AUTO) 0.1 /CMM (0.1-1.30); MONOCYTES % (AUTO) 7.3 % (2.0-12.0); NEUTROPHILS # (AUTO) 1.3 /CMM (1.8-8.9); NEUTROPHILS % (AUTO) 66.4 % (43.0-81.0); PLATELET COUNT (AUTO) 96 /CMM (150-450)
[2020-08-17 07:18] LABS: CALCIUM, SERUM 7.9 mg/dL (8.5-10.1); CARBON DIOXIDE 24 mmol/L (21-32); CHLORIDE 108 mmol/L (98-107); CREATININE 1.8 mg/dL (0.6-1.3); GLUCOSE 82 mg/dL (74-106); MAGNESIUM 1.7 mg/dL (1.8-2.4); PHOSPHORUS 3.2 mg/dL (2.5-4.9); POTASSIUM 6.1 mmol/L (3.5-5.1); SODIUM SERUM 139 mmol/L (136-145)
--- NOTE | 2020-08-17 07:30 | NUR ---
SPECIALIST PHYSICIAN NOTES PT IN BED, AWAKE, ALERT, NO SIGN OF PAIN OR DISTRESS, CALL LIGHT WITHIN REACH, ASSISTED WITH NEEDS, KEPT WARM AND COMFORTABLE IN BED.
[2020-08-17 08:00] VITALS: BP_SYST 114; BP_SYST 128; BP_DIAS 60; BP_DIAS 65
[2020-08-17 08:01] LABS: UREA NITROGEN, BLOOD 44 mg/dL (7-18)
[2020-08-17] MEDS: MISOPROSTOL 100 MCG TABLET PO SCH ×4 (08:12→20:12)
[2020-08-17] MEDS: ATORVASTATIN 10 MG TABLET PO SCH (08:12)
[2020-08-17] MEDS: LINAGLIPTIN 5 MG TABLET PO SCH (08:12)
[2020-08-17] MEDS: PANTOPRAZOLE 40 MG TABLET.DR PO SCH (08:12)
[2020-08-17] MEDS: PROPRANOLOL HCL 10 MG TABLET PO SCH ×2 (08:13→20:13)
[2020-08-17] MEDS: ISOSORBIDE DINITRATE (20MG) 20 MG TABLET PO SCH ×3 (08:13→16:31)
[2020-08-17] MEDS ORDERED: LEVOFLOXACIN 500 MG /D5W 100ML 500 MG in PREMIX 1 EA IV SCH (09:00)
--- NOTE | 2020-08-17 09:00 | NUR ---
CUSTOMER ADVOCACY MANAGER NOTES PT SEEN AND EXAMINED BY DR. ALMA MD AWARE OF PT'S LATEST LAB RESULTS.
--- NOTE | 2020-08-17 10:10 | NUR ---
WOUND CARE CONSULT: REVIEWED CHART, NURSING DOCUMENTATION AND PHOTOS WHICH INDICATE AREAS OF SKIN DISCOLORATION TO FEET, LEGS AND ARMS WELL RASH TO LEFT BREASTFOLD, PRESENT ON ADMISSION. RECOMMENDATIONS MADE FOR SKIN PROTECTION. DISCUSSED WITH NURSING STAFF. MD IN AGREEMENT WITH PLAN OF CARE.
[2020-08-17] MEDS ORDERED: Z GUARD REMEDY 2 OZ OINT TP PRN (10:30)
[2020-08-17] MEDS ORDERED: Magnesium 1GM/D5W 100ML PREMIX 100 ML IV SCH (11:00)
[2020-08-17] MEDS: Z GUARD REMEDY 2 OZ OINT TP SCH (11:55)
[2020-08-17 12:00] VITALS: BP 121/52
[2020-08-17] MEDS: ACETAMINOPHEN 325 MG TABLET PO PRN ×2 (12:00→20:12)
--- NOTE | 2020-08-17 12:00 | NUR ---
BLENDING TANK HELPER NOTES NOTED IV LINES INFILTRATED/LEAKING, UNABLE TO REINSERT DUE TO PT IS MD STEFANY AWARE, ORDERED FOR MIDLINE INSERTION, NURSING STUDIO DATA ANALYST AWARE.
[2020-08-17 16:00] VITALS: BP 141/76
[2020-08-17] MEDS: CLOTRIMAZOLE 1% 15 GM TUBE TP SCH (16:01)
--- NOTE | 2020-08-17 18:27 | NUR ---
SUBWAY OPERATOR NOTES PT IN BED, RESTING, NO COMPLAINT AT THIS TIME, NO SOB, TOLERATES ROOM AIR, MIDLINE TO RIGHT UPPER ARM PLACED, TOLERATED PROCEDURE WELL, ASSISTED WITH DINNER, PM MEDS GIVEN, PM CARE PROVIDED, ALL NEEDS ATTENDED.
[2020-08-17 20:00] VITALS: BP 118/51
[2020-08-17] MEDS ORDERED: LEVOFLOXACIN 250 MG /D5W 50 ML 250 MG in PREMIX 1 EA IV SCH (21:00)
[2020-08-18] VITALS: BP 108/50
[2020-08-18 04:00] VITALS: BP 113/66
[2020-08-18 06:33] LABS: BASOPHILS % (AUTO) 0.2 % (0.0-2.0); EOSINOPHILS % (AUTO) 0.8 % (0.0-6.0); HEMATOCRIT 27 % (33-45); HEMOGLOBIN 8.5 g/dL (11.5-14.8); LYMPHOCYTES # (AUTO) 0.5 /CMM (0.8-4.8); LYMPHOCYTES % (AUTO) 21.3 % (20.0-44.0); MEAN CORPUSCULAR HGB CONC 32 g/dl (31.0-36.0); MEAN CORPUSCULAR VOLUME 92 fL (82-100); MONOCYTES # (AUTO) 0.2 /CMM (0.1-1.30); MONOCYTES % (AUTO) 7.2 % (2.0-12.0); NEUTROPHILS # (AUTO) 1.6 /CMM (1.8-8.9); NEUTROPHILS % (AUTO) 70.5 % (43.0-81.0); PLATELET COUNT (AUTO) 89 /CMM (150-450); RED BLOOD CELL COUNT(AUTO) 2.93 MIL/uL (4.0-5.2); WHITE BLOOD COUNT (AUTO) 2.3 K/uL (4.3-11.0)
[2020-08-18 07:16] LABS: CALCIUM, SERUM 7.8 mg/dL (8.5-10.1); CARBON DIOXIDE 24 mmol/L (21-32); CHLORIDE 106 mmol/L (98-107); CREATININE 1.9 mg/dL (0.6-1.3); GLUCOSE 91 mg/dL (74-106); MAGNESIUM 1.8 mg/dL (1.8-2.4); POTASSIUM 5.7 mmol/L (3.5-5.1); SODIUM SERUM 138 mmol/L (136-145); UREA NITROGEN, BLOOD 41 mg/dL (7-18)
--- NOTE | 2020-08-18 07:30 | NUR ---
RN OPENING NOTES PT IN BED A/O X1, WITH CONFUSION. CHINESE SPEAKING. RESTING, NO COMPLAINT AT THIS TIME. NOT IN ANY ACUTE DISTRESS. TOLERATES ROOM AIR, MIDLINE TO RIGHT UPPER ARM PLACED. ASSISTED WITH DINNER. BED KEPT IN LOWEST POSITION FOR SAFETY. WILL CONTINUE TO MONITOR.
[2020-08-18 08:00] VITALS: BP 116/51
[2020-08-18] MEDS: PANTOPRAZOLE 40 MG TABLET.DR PO SCH (09:30)
[2020-08-18] MEDS: ISOSORBIDE DINITRATE (20MG) 20 MG TABLET PO SCH ×3 (09:30→17:38)
[2020-08-18] MEDS: PROPRANOLOL HCL 10 MG TABLET PO SCH ×2 (09:30→20:13)
[2020-08-18] MEDS: ATORVASTATIN 10 MG TABLET PO SCH (09:31)
[2020-08-18] MEDS: MISOPROSTOL 100 MCG TABLET PO SCH ×4 (09:31→20:13)
[2020-08-18] MEDS: LINAGLIPTIN 5 MG TABLET PO SCH (09:31)
[2020-08-18] MEDS: Z GUARD REMEDY 2 OZ OINT TP SCH (09:31)
[2020-08-18] MEDS: CLOTRIMAZOLE 1% 15 GM TUBE TP SCH ×2 (09:31→17:38)
[2020-08-18] MEDS ORDERED: SODIUM POLYSTYRENE SULFONATE 15 G/60 ML BOTTLE PO ONE (10:00)
[2020-08-18 12:00] VITALS: BP 116/57
[2020-08-18 12:29] LABS: BAND % (MANUAL) 1 % (0.0-5.0); LYMPHOCYTES % (MANUAL) 20 % (16-48); MONOCYTES % (MANUAL) 3 % (0-11.0); NEUTROPHILS % (MANUAL) 76 (42-76)
[2020-08-18 16:00] VITALS: BP 116/57
--- NOTE | 2020-08-18 18:34 | NUR ---
RN CLOSING NOTES Patient awake in bed, A&O x 3. All needs met and attended to. Not inm any distress at this time. Breathing even and non-labored on RA, no SOB noted, saturating at 100%. No cardiac distress noted, on tele monitor reading junctional rhythm 65. IV accesses noted on L hand #20g, and R hand #20g, both patent and intact, and flushing well. Arthur in place, draining clear yellow urine well. Fall precautions maintained. Will endorse to next shift.
--- NOTE | 2020-08-18 19:30 | NUR ---
RECEIVED PT ON BED AWAKE NO ROOM AIR SPO2 100% NO RESPIRATORY DISTRESS NOTED NO PAIN COMPLAINED, [place] SPEAKING WITH LITTLE SRI LANKAN, ABLE TO VERBALIZED NEEDS, TEL MONITOR READS JUNCTIONAL SINUS RHYTHM 90'S HAVE FRANCISCO JAVIER MIDLINE PATENT AND FLUSHED, HAVE MEJIA CATHETER WITH YELLO URINE DRAINING VIA GRAVITY BED ON LOWEST POSITION AND LOCKED SIDE RAILS UP X2 CALL LIGHT WITHIN REACH WILL CONT TO MONITOR
[2020-08-18 20:00] VITALS: BP 121/65
[2020-08-18] MEDS: ACETAMINOPHEN 325 MG TABLET PO PRN (20:13)
[2020-08-19] VITALS: BP 92/50
[2020-08-19 04:00] VITALS: BP 106/46
--- NOTE | 2020-08-19 06:47 | NUR ---
PT ON BED ASLEEP EASY TO WAKE UP A/O X3 SPO2 98 % VIA ROOM AIR NO DISTRESS NOTED NO PAIN COMPLAINED TELE MONITOR READS V PACING HR 70S NO SIGNIFICANT CHANGES ON CONDITION NOTED ALL NEEDS ATTENDED BED ON LOWEST POSITION AND LOCKED SIDE RAILS UP X2 CALL LIGHT WITHIN REACH WILL ENDORSED TO AM SHIFT NURSE
[2020-08-19 07:44] LABS: CALCIUM, SERUM 7.7 mg/dL (8.5-10.1); CARBON DIOXIDE 25 mmol/L (21-32); CHLORIDE 105 mmol/L (98-107); GLUCOSE 108 mg/dL (74-106); MAGNESIUM 2.1 mg/dL (1.8-2.4); PHOSPHORUS 3.2 mg/dL (2.5-4.9); POTASSIUM 5.5 mmol/L (3.5-5.1); SODIUM SERUM 135 mmol/L (136-145); UREA NITROGEN, BLOOD 40 mg/dL (7-18)
--- NOTE | 2020-08-19 08:36 | NUR ---
LENS MOLD SETTER NOTES PATIENT RECEIVED FROM RN, ALERT AND ORIENTED X2-3, STATELESS SPEAKING. ON ROOM AIR AT THIS TIME, DENIES ANY SOB AND NO RESPIRATORY DISTRESS NOTED AT THIS TIME. ON UTILITY LOCATOR. MEJIA CATHETER INTACT AND IN PLACE. SAFETY PRECAUTIONS IMPLEMENTED WITH BED LOCKED, BILATERAL SIDE RAILS UP, BED ALARM ON, BED IN THE LOWEST POSITION, AND CALL LIGHT WITHIN EASY REACH WILL CONTINUE TO MONITOR PATIENT.
[2020-08-19] MEDS: ISOSORBIDE DINITRATE (20MG) 20 MG TABLET PO SCH ×3 (09:00→16:22)
[2020-08-19] MEDS: PROPRANOLOL HCL 10 MG TABLET PO SCH ×2 (09:00→20:46)
[2020-08-19] MEDS: LINAGLIPTIN 5 MG TABLET PO SCH (09:02)
[2020-08-19] MEDS: MISOPROSTOL 100 MCG TABLET PO SCH ×4 (09:02→20:27)
[2020-08-19] MEDS: PANTOPRAZOLE 40 MG TABLET.DR PO SCH (09:03)
[2020-08-19] MEDS: ATORVASTATIN 10 MG TABLET PO SCH (09:03)
[2020-08-19] MEDS: CLOTRIMAZOLE 1% 15 GM TUBE TP SCH ×2 (09:06→16:29)
[2020-08-19] MEDS: Z GUARD REMEDY 2 OZ OINT TP SCH (09:06)
[2020-08-19] MEDS ORDERED: SODIUM POLYSTYRENE SULFONATE 15 G/60 ML BOTTLE PO ONE (09:30)
[2020-08-19 09:39] VITALS: BP 120/53
[2020-08-19 12:00] VITALS: BP 123/76
[2020-08-19 16:00] VITALS: BP 123/55
[2020-08-19] MEDS: ACETAMINOPHEN 325 MG TABLET PO PRN (16:24)
--- NOTE | 2020-08-19 18:49 | NUR ---
BLOOM CONVEYOR OPERATOR NOTES PATIENT IN BED RESTING COMFORTABLY, ALERT AND ORIENTED X2-3, SAMOAN SPEAKING. ON ROOM AIR AT THIS TIME, DENIES ANY SOB AND NO RESPIRATORY DISTRESS NOTED AT THIS TIME. ON SAP BW BI DEVELOPER. MEJIA CATHETER INTACT AND IN PLACE. SKIN KEPT CLEAN, WARM AND DRY TO TOUCH. MET ALL OF PATIENT'S NEEDS. IV ACCESS INTACT AND PATENT. SAFETY PRECAUTIONS IMPLEMENTED WITH BED LOCKED, BILATERAL SIDE RAILS UP, BED ALARM ON, BED IN THE LOWEST POSITION, AND CALL LIGHT WITHIN EASY REACH. WILL ENDORSE PLAN OF CARE TO UPCOMING RN.
--- NOTE | 2020-08-19 19:30 | NUR ---
RN OPENING NOTES RECEIVED PT IN BED, A/O X 2 PANAMANIAN SPEAKING, PROJECT LEAD UTILIZED. PT ON ROOM AIR. TOLERATING WELL SATURATING >94%, NO RESP DISTRESS OR SOB. PT HX OF VPACING, PACEMAKER PRESENT. HR, 90S. IV SITE FLUSHED, PT HAS MEJIA CATH DRAINING TO GRAVITY. CLEAR WITH SEDIMENT NOTED. ISOLATION PRECAUTIONS IN PLACE. SAFETY MEASURES IN PLACE. HOB ELEVATED, SIDE RAILS UP X2, BED LOCKED IN LOWEST POSITION WITH ALARM ON. CALL LIGHT WITHIN REACH. WILL CONT TO MONITOR.
[2020-08-19 20:00] VITALS: BP 112/56
--- NOTE | 2020-08-19 20:30 | NUR ---
PT HAS TEMP, 101 COLD COMPRESS AND ICE PACKS APPLIED WILL CONT TO MONITOR
[2020-08-19] MEDS ORDERED: LEVOFLOXACIN (250MG) 250 MG TABLET PO SCH (21:00)
--- NOTE | 2020-08-19 23:00 | NUR ---
PT TEMP GOING DOWN, 100.0 WILL CONT TO MONITOR
[2020-08-20] VITALS: BP 102/52
--- NOTE | 2020-08-20 02:00 | NUR ---
NOTED PT HAS CLOUDY URINE, AND C/O OF SLIGHT PAIN/DISCOMFORT. TOLERABLE FOR NOW. INFORMED STUDENT OUTREACH COORDINATOR CÉSAR ANGELO. ORDERS CARRIED OUT FOR UA.
[2020-08-20 04:00] VITALS: BP 119/47
--- NOTE | 2020-08-20 06:40 | NUR ---
RN CLOSING NOTES NO SIGNIFICANT CHANGES. AWAITING UA RESULTS. PT IS STILL ON ROOM AIR, SATURATING >94% NO RESP DISTRESS OR SOB NOTED. BREATHING EVEN AND UNLABORED. PT IS AFEBRILE, NEEDS ATTENDED, ALL DUE MEDICATIONS GIVEN. SAFETY MEASURES IN PLACE, HOB ELEVATED SIDE RAILS UP X2, BED LOCKED IN LOWEST POSITION. CALL LIGHT WITHIN REACH. WILL ENDORSE TO AM NURSE FOR CONTINUATION OF CARE.
[2020-08-20 07:05] LABS: BASOPHILS % (AUTO) 0.2 % (0.0-2.0); EOSINOPHILS % (AUTO) 0.8 % (0.0-6.0); HEMATOCRIT 27 % (33-45); HEMOGLOBIN 8.4 g/dL (11.5-14.8); LYMPHOCYTES # (AUTO) 0.5 /CMM (0.8-4.8); MEAN CORPUSCULAR HGB CONC 32 g/dl (31.0-36.0); MEAN CORPUSCULAR VOLUME 93 fL (82-100); MONOCYTES # (AUTO) 0.2 /CMM (0.1-1.30); MONOCYTES % (AUTO) 5.9 % (2.0-12.0); NEUTROPHILS # (AUTO) 2.6 /CMM (1.8-8.9); NEUTROPHILS % (AUTO) 79.1 % (43.0-81.0); PLATELET COUNT (AUTO) 94 /CMM (150-450); RED BLOOD CELL COUNT(AUTO) 2.87 MIL/uL (4.0-5.2); WHITE BLOOD COUNT (AUTO) 3.3 K/uL (4.3-11.0)
[2020-08-20 07:36] LABS: CALCIUM, SERUM 7.8 mg/dL (8.5-10.1); CARBON DIOXIDE 24 mmol/L (21-32); CHLORIDE 105 mmol/L (98-107); CREATININE 1.9 mg/dL (0.6-1.3); GLUCOSE 88 mg/dL (74-106); MAGNESIUM 1.8 mg/dL (1.8-2.4); PHOSPHORUS 3.2 mg/dL (2.5-4.9); POTASSIUM 5.2 mmol/L (3.5-5.1); SODIUM SERUM 136 mmol/L (136-145); UREA NITROGEN, BLOOD 39 mg/dL (7-18)
[2020-08-20 08:00] VITALS: BP 157/59
--- NOTE | 2020-08-20 08:00 | NUR ---
RN Opening note Received patient in bed, awake able to responds all stimuli, Pt does no appears pain or distress. Skin is warm to touch keep clean/dry intact IV site, respiratory even and unlabored on room air O2sat 95%. Kept locked bed with elevated HOB for aspiration precaution and ensure airway and lowest bed foe safety. Call light within reach, will continue to monitor.
[2020-08-20] MEDS: PANTOPRAZOLE 40 MG TABLET.DR PO SCH (08:14)
[2020-08-20] MEDS: PROPRANOLOL HCL 10 MG TABLET PO SCH ×2 (08:35→20:58)
[2020-08-20] MEDS: ATORVASTATIN 10 MG TABLET PO SCH (08:35)
[2020-08-20] MEDS: LINAGLIPTIN 5 MG TABLET PO SCH (08:35)
[2020-08-20] MEDS: Z GUARD REMEDY 2 OZ OINT TP SCH (08:36)
[2020-08-20] MEDS: CLOTRIMAZOLE 1% 15 GM TUBE TP SCH ×2 (08:36→17:17)
[2020-08-20] MEDS: MISOPROSTOL 100 MCG TABLET PO SCH ×4 (08:36→20:57)
[2020-08-20] MEDS: ISOSORBIDE DINITRATE (20MG) 20 MG TABLET PO SCH ×3 (08:36→17:00)
[2020-08-20 08:57] LABS: COLOR,URINE YELLOW (YELLOW)
[2020-08-20 08:58] LABS: BILIRUBIN,URINE NEGATIVE (NEGATIVE); PH,URINE 5.5 (5.0-8.0); PROTEIN,URINE 100 mg/dl (NEGATIVE); UGLUCOSE NEGATIVE (NEGATIVE)
[2020-08-20 08:59] LABS: LEUKOCYTE ESTERASE ,URINE MODERATE (NEGATIVE); NITRITE, URINE POSITIVE (NEGATIVE); UROBILINOGEN,URINE 0.2 EU/dL (0.2)
[2020-08-20 09:56] LABS: WBC,URINE TOO NUMEROUS TO COUN /HPF (0-3)
[2020-08-20 09:57] LABS: BACTERIA,URINE Many /HPF (None Seen)
[2020-08-20 09:58] LABS: SQUAMOUS EPITHELIAL CELL,UR Few /HPF (None Seen)
[2020-08-20 09:59] LABS: YEAST,URINE None Seen /HPF (None Seen)
--- NOTE | 2020-08-20 18:39 | NUR ---
RN closing Patient in bed resting, does no appears distress or discomfort. Skin is warm to touch, keep clean/dry, intact midline on right upper arm. Respiratory even and unlabored on room air O2sat 92%. Kept elevated HOB for ensure air way and aspiration precaution and lowest bed for safety. Call light within reach, will endorse overnight houseperson
--- NOTE | 2020-08-20 19:40 | NUR ---
RN opening notes, Patient in bed , breathing even and unlabored, no sob/acute distress noted, o2 at >90% at this time at room air, midline on right upper arm patent and intact, aspiration precautions, all safety measures in place, f/c in place with urine tea color, cloudy and secondments noted, bed locked and lowest position, Call light within reach, will continue to monitor closely.
[2020-08-20 20:00] VITALS: BP 102/53
[2020-08-20] MEDS: ACETAMINOPHEN 325 MG TABLET PO PRN (20:56)
[2020-08-20] MEDS ORDERED: VANCOMYCIN 1 GM in IV D5W 250 ML IV SCH (22:00)
[2020-08-20] MEDS: MEROPENEM 500 MG in IV NS 0.9% 50 ML IV SCH (22:17)
[2020-08-21 04:00] VITALS: BP 112/68
[2020-08-21 06:40] LABS: BASOPHILS % (AUTO) 0.3 % (0.0-2.0); EOSINOPHILS % (AUTO) 0.9 % (0.0-6.0); HEMATOCRIT 23 % (33-45); HEMOGLOBIN 7.4 g/dL (11.5-14.8); LYMPHOCYTES # (AUTO) 0.4 /CMM (0.8-4.8); LYMPHOCYTES % (AUTO) 16.2 % (20.0-44.0); MEAN CORPUSCULAR HGB CONC 32 g/dl (31.0-36.0); MEAN CORPUSCULAR VOLUME 93 fL (82-100); MONOCYTES # (AUTO) 0.2 /CMM (0.1-1.30); MONOCYTES % (AUTO) 6.5 % (2.0-12.0); NEUTROPHILS # (AUTO) 1.9 /CMM (1.8-8.9); NEUTROPHILS % (AUTO) 76.1 % (43.0-81.0); PLATELET COUNT (AUTO) 81 /CMM (150-450); RED BLOOD CELL COUNT(AUTO) 2.48 MIL/uL (4.0-5.2); WHITE BLOOD COUNT (AUTO) 2.5 K/uL (4.3-11.0)
[2020-08-21 06:52] LABS: CALCIUM, SERUM 7.5 mg/dL (8.5-10.1); CARBON DIOXIDE 25 mmol/L (21-32); CHLORIDE 106 mmol/L (98-107); CREATININE 2.2 mg/dL (0.6-1.3); GLUCOSE 119 mg/dL (74-106); POTASSIUM 4.8 mmol/L (3.5-5.1); SODIUM SERUM 136 mmol/L (136-145); UREA NITROGEN, BLOOD 43 mg/dL (7-18)
--- NOTE | 2020-08-21 07:00 | NUR ---
RN CLOSING NOTES, Patient in bed, breathing even and unlabored, no sob/acute distress noted, on o2 at >97% at this time, patient with episodes of desaturation and placed her in o2, aspiration precautions, all safety measures in place, bed locked and lowest position, Call light within reach, will endorse cont of care to oncoming nurse.
[2020-08-21] MEDS: PANTOPRAZOLE 40 MG TABLET.DR PO SCH ×2 (07:30→09:27)
--- NOTE | 2020-08-21 07:30 | NUR ---
MATERIALS INTERN OPENING NOTES Patient is alert and oriented x2. No s/s of respiratory distress, breathing even and unlabored. Arthur cath intact and hanging to gravity with clear yellow urine. Patient did not c/o pain or discomfort. Patient is noted with right upper arm midline intact and flushing well.. On 02 3 liters with 02 saturation of 97%. Head of bed kept elevated. Bed is in lowest and locked position. Call light with in reach.
[2020-08-21 09:00] VITALS: BP 124/60
[2020-08-21] MEDS: ATORVASTATIN 10 MG TABLET PO SCH ×2 (09:00→09:27)
[2020-08-21] MEDS: MISOPROSTOL 100 MCG TABLET PO SCH ×5 (09:00→21:14)
[2020-08-21] MEDS: PROPRANOLOL HCL 10 MG TABLET PO SCH ×3 (09:00→21:14)
[2020-08-21] MEDS: LINAGLIPTIN 5 MG TABLET PO SCH ×2 (09:00→09:27)
[2020-08-21] MEDS: ISOSORBIDE DINITRATE (20MG) 20 MG TABLET PO SCH ×4 (09:00→16:02)
[2020-08-21] MEDS: MEROPENEM 500 MG in IV NS 0.9% 50 ML IV SCH ×2 (09:26→21:01)
[2020-08-21] MEDS: CLOTRIMAZOLE 1% 15 GM TUBE TP SCH ×2 (10:02→16:03)
[2020-08-21] MEDS: Z GUARD REMEDY 2 OZ OINT TP SCH (10:02)
--- NOTE | 2020-08-21 17:30 | NUR ---
Patient refused all her medications during shift except topical and IV. Patient educated regarding the risks associated but refused. Patient was agitated when scientific technical writer was offering. Informed OVEN TENDER BAGELS
--- NOTE | 2020-08-21 18:39 | NUR ---
BUSINESS OPERATIONS COORDINATOR CLOSING NOTES Patient is alert and oriented x2. No s/s of respiratory distress, breathing even and unlabored. Arthur cath intact and hanging to gravity with clear yellow urine. Patient did not c/o pain or discomfort. Patient is noted with right upper arm midline intact and flushing well.. On 02 3 liters with 02 saturation of 99%. Head of bed kept elevated. Bed is in lowest and locked position. Call light with in reach. Will endorse to next shift for HOMER.
--- NOTE | 2020-08-21 20:17 | NUR ---
RN NOTE PATIENT A/OX2, NO SOB. BREATHING EVEN AND UNLABORED. ON 3L VIA NASAL CANNULA, O2 SAT WNL. FRANCISCO JAVIER MIDLINE INTACT AND PATENT. WITH MEJIA CATH IN PLACE, DRAINING URINE TO GRAVITY. DENIES ANY PAIN, NO SIGNS OF DISCOMFORT. BED LOCKED AND IN LOWEST POSITION. SIDE RAILS UP X2. CALL LIGHT WITHIN REACH. WILL CONTINUE TO MONITOR.
[2020-08-21 21:00] VITALS: BP 111/67
--- NOTE | 2020-08-21 21:40 | NUR ---
RN NOTES, RECEIVED PATIENT FROM KHADRA BURK FOR CONTINUATION OF CARE, NO SOB/DISTRESS NOTED.
[2020-08-21] MEDS ORDERED: VANCOMYCIN 0.75 GM in IV D5W 250 ML IV SCH (22:00)
[2020-08-22 04:00] VITALS: BP 113/49
--- NOTE | 2020-08-22 06:31 | NUR ---
RN CLOSING NOTES, Patient in bed, on 3lpm via NC, 02 sat level >96%, breathing even and unlabored, no sob/acute distress noted, aspiration precautions, all safety measures in place, bed locked and lowest position, Call light within reach, afebrile during the night, will endorse cont of care to oncoming nurse.
[2020-08-22 07:29] LABS: CALCIUM, SERUM 7.7 mg/dL (8.5-10.1); CARBON DIOXIDE 26 mmol/L (21-32); CHLORIDE 106 mmol/L (98-107); GLUCOSE 106 mg/dL (74-106); POTASSIUM 4.8 mmol/L (3.5-5.1); SODIUM SERUM 137 mmol/L (136-145); UREA NITROGEN, BLOOD 44 mg/dL (7-18)
[2020-08-22] MEDS: PANTOPRAZOLE 40 MG TABLET.DR PO SCH (07:30)
--- NOTE | 2020-08-22 07:30 | NUR ---
MED-AUTO WHEEL ALIGNMENT SPECIALIST OPENING NOTES Patient in bed, sleeping at this time. No s/s of respiratory distress at this time. Breathing is even and unlabored. Currently on 3L nasal cannula. Currently on a renal standard diet. Patient has a right upper arm midline, intact and patent. Patient has a talley catheter in place, with clear yellow urine output. Head of bed kept elevated. All safety measures in place per hospital policy. Bed locked in lowest position. Call light within reach. Will continue to monitor and provide care.
[2020-08-22 09:00] VITALS: BP 118/47
[2020-08-22] MEDS: MISOPROSTOL 100 MCG TABLET PO SCH ×2 (09:00→12:10)
[2020-08-22] MEDS: PROPRANOLOL HCL 10 MG TABLET PO SCH (09:00)
[2020-08-22] MEDS: ISOSORBIDE DINITRATE (20MG) 20 MG TABLET PO SCH ×2 (09:00→12:10)
[2020-08-22] MEDS: Z GUARD REMEDY 2 OZ OINT TP SCH (09:00)
[2020-08-22] MEDS: CLOTRIMAZOLE 1% 15 GM TUBE TP SCH (09:00)
[2020-08-22] MEDS: LINAGLIPTIN 5 MG TABLET PO SCH (09:00)
[2020-08-22] MEDS: ATORVASTATIN 10 MG TABLET PO SCH (09:00)
--- NOTE | 2020-08-22 09:00 | NUR ---
PATIENT REFUSED ALL MORNING MEDICATIONS.
[2020-08-22] MEDS: MEROPENEM 500 MG in IV NS 0.9% 50 ML IV SCH (09:19)
--- NOTE | 2020-08-22 13:00 | NUR ---
PATIENT REFUSED PO MEDS AGAIN. EDUCATION PROVIDED HOWEVER PATIENT CONT TO REFUSE.
[2020-08-22] MEDS ORDERED: DEXAMETHASONE SOD PHOSPHATE 4 MG/ML VIAL IV SCH (16:00)
--- NOTE | 2020-08-22 16:17 | NUR ---
PATIENT DISCHARGED TO [facility]. PATIENT STABLE AT TIME OF DISCHARGE. MIDLINE ON RIGHT UPPER ARM IN PLACE, INTACT AND PATENT. NO REDNESS/SWELLING AT THIS TIME. ANTIBIOTIC THERAPY TO BE CONTINUED AT SNF. MEJIA CATHETER IN PLACE, DRAINING WELL. PATIENT HAS NO BELONGINGS AT HOSPITAL. PATIENT STATED HER BELONGINGS ARE AT [facility], WHERE SHE CAME FROM. REPORT GIVEN TO NEWTON PRATT. EDUCATION MATERIAL PROVIDED TO PATIENT AT TIME OF DISCHARGE.
== END 2020-08-22 17:10 | DRG 177 ==
LOC: ER 23:19 → TRANSITION 08-16 02:04 → TELE1 08-16 10:20 → MEDSG1 08-20 11:59
PROVIDERS: ADMIT Internal Medicine; ATTEND Nurse Practitioner Acute Care
PROC: 0W9G3ZZ Drainage of Peritoneal Cavity, Percutaneous Approach (ICD-10-PCS; principal; 2020-08-16)
PROC: 05H933Z Insertion of Infusion Device into Right Brachial Vein, Percutaneous Approach (ICD-10-PCS; 2020-08-18)
DX: U07.1 COVID-19 (principal); N17.0 Acute kidney failure with tubular necrosis; I50.23 Acute on chronic systolic (congestive) heart failure; J12.82 Pneumonia due to coronavirus disease 2019; J15.9 Unspecified bacterial pneumonia; I21.4 Non-ST elevation (NSTEMI) myocardial infarction; J96.01 Acute respiratory failure with hypoxia; R18.8 Other ascites; N39.0 Urinary tract infection, site not specified; D61.818 Other pancytopenia; D68.59 Other primary thrombophilia; E44.0 Moderate protein-calorie malnutrition; I13.0 Hypertensive heart and chronic kidney disease with heart failure and stage 1 through stage 4 chronic kidney disease, or unspecified chronic kidney disease; K86.1 Other chronic pancreatitis; G93.40 Encephalopathy, unspecified; K74.60 Unspecified cirrhosis of liver; N18.9 Chronic kidney disease, unspecified; E11.22 Type 2 diabetes mellitus with diabetic chronic kidney disease; D63.8 Anemia in other chronic diseases classified elsewhere; Z86.73 Personal history of transient ischemic attack (TIA), and cerebral infarction without residual deficits; E11.42 Type 2 diabetes mellitus with diabetic polyneuropathy; F03.90 Unspecified dementia, unspecified severity, without behavioral disturbance, psychotic disturbance, mood disturbance, and anxiety; F29 Unspecified psychosis not due to a substance or known physiological condition; M26.609 Unspecified temporomandibular joint disorder, unspecified side; E03.9 Hypothyroidism, unspecified; Z88.1 Allergy status to other antibiotic agents; Z95.0 Presence of cardiac pacemaker; Z95.5 Presence of coronary angioplasty implant and graft; Z95.1 Presence of aortocoronary bypass graft; Z90.49 Acquired absence of other specified parts of digestive tract; Z79.51 Long term (current) use of inhaled steroids; Z79.899 Other long term (current) drug therapy; H26.9 Unspecified cataract; M81.0 Age-related osteoporosis without current pathological fracture; M79.7 Fibromyalgia; K57.90 Diverticulosis of intestine, part unspecified, without perforation or abscess without bleeding; E78.5 Hyperlipidemia, unspecified; I25.10 Atherosclerotic heart disease of native coronary artery without angina pectoris; I25.2 Old myocardial infarction; I27.20 Pulmonary hypertension, unspecified; I08.3 Combined rheumatic disorders of mitral, aortic and tricuspid valves; K59.00 Constipation, unspecified; K21.00 Gastro-esophageal reflux disease with esophagitis, without bleeding; K64.9 Unspecified hemorrhoids; K29.70 Gastritis, unspecified, without bleeding; N97.9 Female infertility, unspecified; Z83.3 Family history of diabetes mellitus; Z82.49 Family history of ischemic heart disease and other diseases of the circulatory system; I49.9 Cardiac arrhythmia, unspecified; Z74.09 Other reduced mobility; E87.5 Hyperkalemia; B95.5 Unspecified streptococcus as the cause of diseases classified elsewhere; T50.0X5A Adverse effect of mineralocorticoids and their antagonists, initial encounter; Y92.9 Unspecified place or not applicable; Z68.30 Body mass index [BMI] 30.0-30.9, adult; E66.9 Obesity, unspecified
CPT/HCPCS: 36415; 71045-TC; 76942-TC; 80048-TC; 80076-TC; 81001; 82140-TC; 82550-TC; 82962-TC; 83615-TC; 83690-TC; 83735-TC; 83880; 84100-TC; 84484-TC; 85025-TC; 85378-TC; 85730-TC; 86140-TC; 87040-TC; 87081-TC; 87086-TC; 87186-TC; A4216; C9803; G0378; J0610; J1815; J1940; J1956; J2185; J2270; J2405; J3370; J3475; J3490; J7050; J7060; U0003

== ENCOUNTER 2020-08-29 19:08 | Inpatient (IN) | payer MEDICARE, OTHER ==
[~2020-08-29] VITALS: Ht 165.1 cm; Wt 86.2 kg
[2020-08-29] MEDS ORDERED: Calcium Gluconate 0.465 MEQ/ML VIAL IV ONE ×4 (20:22→20:30)
--- NOTE | 2020-08-29 20:32 | NUR ---
CALCIUM GLUCONATE 1GM X 1 DOSE GIVEN WITH MD AT BEDSIDE W/ PT ON MONITOR DURING COMPOUNDER FLAVORINGS. RECHECK EKG 30MIN AFTER.
[2020-08-29 20:42] LABS: BASOPHILS % (AUTO) 0.5 % (0.0-2.0); HEMATOCRIT 31 % (33-45); HEMOGLOBIN 9.3 g/dL (11.5-14.8); LYMPHOCYTES # (AUTO) 0.3 /CMM (0.8-4.8); LYMPHOCYTES % (AUTO) 4.3 % (20.0-44.0); MEAN CORPUSCULAR HGB CONC 30 g/dl (31.0-36.0); MEAN CORPUSCULAR VOLUME 96 fL (82-100); MONOCYTES # (AUTO) 0.1 /CMM (0.1-1.30); NEUTROPHILS # (AUTO) 6.2 /CMM (1.8-8.9); NEUTROPHILS % (AUTO) 93.2 % (43.0-81.0); PLATELET COUNT (AUTO) 153 /CMM (150-450); WHITE BLOOD COUNT (AUTO) 6.7 K/uL (4.3-11.0)
[2020-08-29 20:59] LABS: CARBON DIOXIDE 24 mmol/L (21-32); CHLORIDE 106 mmol/L (98-107); CREATININE 2.2 mg/dL (0.6-1.3); GLUCOSE 271 mg/dL (74-106); SODIUM SERUM 137 mmol/L (136-145); UREA NITROGEN, BLOOD 74 mg/dL (7-18)
[2020-08-29 21:05] LABS: ALANINE AMINOTRANSFERASE 12 U/L (12-78); ALBUMIN 2.1 g/dL (3.4-5.0); ALKALINE PHOSPHATASE 102 U/L (46-116); ASPARTATE AMINOTRANSFERASE 24 U/L (15-37); BILIRUBIN,DIRECT 0.5 mg/dL (0.0-0.2); LIPASE 288 U/L (73-393); TOTAL PROTEIN, SERUM 6.5 g/dL (6.4-8.2)
[2020-08-29] MEDS ORDERED: FUROSEMIDE 20 MG/2 ML VIAL IV ONE (21:30)
[2020-08-29] MEDS ORDERED: SODIUM POLYSTYRENE SULFONATE 15 G/60 ML BOTTLE PO ONE (21:30)
[2020-08-29] MEDS ORDERED: DEXTROSE 50%-WATER 50 ML DISP.SYRIN IV ONE (21:30)
[2020-08-29] MEDS ORDERED: INSULIN REGULAR, HUMAN 100 UNIT/ML 10 ML VIAL IV ONE (21:30)
[2020-08-29] MEDS ORDERED: ALBUTEROL FS 2.5 MG/3 ML VIAL.NEB NEB ONE (21:30)
[2020-08-29] MEDS ORDERED: ACETAMINOPHEN 325 MG TABLET PO PRN ×2 (22:00)
[2020-08-29] MEDS ORDERED: MAG HYDROX/AL HYDROX/SIMETH 30 ML UDC PO PRN (22:00)
[2020-08-29] MEDS ORDERED: HYDROCODONE/APAP 5/325MG TABLET PO PRN (22:00)
[2020-08-29] MEDS ORDERED: Medication Not On Formulary EA (Budesonide/Formoterol Fumarate (Symbicort 160-4.5 Mcg In IH PRN (22:00)
[2020-08-29] MEDS ORDERED: MAGNESIUM HYDROXIDE 30 ML UDC PO PRN ×2 (22:00)
[2020-08-29] MEDS ORDERED: Z GUARD REMEDY 2 OZ OINT TP PRN (22:00)
[2020-08-29] MEDS ORDERED: ONDANSETRON HCL/PF 4 MG/2 ML VIAL IVP PRN (22:00)
--- NOTE | 2020-08-29 22:27 | NUR ---
Call from Lab. rapid covid negative.
[2020-08-29] MEDS ORDERED: DEXTROSE 50%-WATER 50 ML DISP.SYRIN IV PRN (22:30)
--- NOTE | 2020-08-29 23:41 | NUR ---
REPORT RECIEVED FROM RACHEL BURK FOR HOMER. PT PLACED ON INTELLECTUAL PROPERTY LAWYER AND PULSE OX. AWAITING ORDERS.
[2020-08-30] MEDS ORDERED: ALBUTEROL FS 2.5 MG/3 ML VIAL.NEB ONE (00:10)
[2020-08-30] MEDS ORDERED: IPRATROPIUM NEB FS 0.5 MG/2.5 ML AMPUL.NEB ONE (00:11)
[2020-08-30] MEDS ORDERED: PANTOPRAZOLE 40 MG VIAL ONE ×2 (00:59→08:34)
[2020-08-30] MEDS: PANTOPRAZOLE 40 MG VIAL IV SCH ×2 (01:06→22:57)
[2020-08-30] MEDS ORDERED: ALBUTEROL FS 2.5 MG/3 ML VIAL.NEB NEB SCH (01:30)
--- NOTE | 2020-08-30 01:54 | NUR ---
PT REQUESTED FOR WATER. PROVIDED WITH WATER.
--- NOTE | 2020-08-30 02:32 | NUR ---
PT REQUESTED TO BE REPOSITIONED, PT REPOSITONED TO THE RIGHT.
--- NOTE | 2020-08-30 03:28 | NUR ---
PT PLACED IN NEW GOWN, RECONNECTED TO DIRECTOR OF RESTAURANT, AND PULSE OX. VSS.
[2020-08-30 03:56] LABS: BASOPHILS % (AUTO) 0.3 % (0.0-2.0); HEMATOCRIT 28 % (33-45); HEMOGLOBIN 8.6 g/dL (11.5-14.8); LYMPHOCYTES # (AUTO) 0.3 /CMM (0.8-4.8); LYMPHOCYTES % (AUTO) 4.4 % (20.0-44.0); MEAN CORPUSCULAR HGB CONC 31 g/dl (31.0-36.0); MEAN CORPUSCULAR VOLUME 94 fL (82-100); MONOCYTES # (AUTO) 0.2 /CMM (0.1-1.30); MONOCYTES % (AUTO) 3.2 % (2.0-12.0); NEUTROPHILS # (AUTO) 5.8 /CMM (1.8-8.9); NEUTROPHILS % (AUTO) 92.1 % (43.0-81.0); PLATELET COUNT (AUTO) 138 /CMM (150-450); WHITE BLOOD COUNT (AUTO) 6.3 K/uL (4.3-11.0)
[2020-08-30 04:12] LABS: CALCIUM, SERUM 8.8 mg/dL (8.5-10.1); CARBON DIOXIDE 25 mmol/L (21-32); CHLORIDE 107 mmol/L (98-107); CREATININE 2.3 mg/dL (0.6-1.3); GLUCOSE 240 mg/dL (74-106); MAGNESIUM 2.1 mg/dL (1.8-2.4); PHOSPHORUS 4.4 mg/dL (2.5-4.9); POTASSIUM 5.9 mmol/L (3.5-5.1); SODIUM SERUM 139 mmol/L (136-145); UREA NITROGEN, BLOOD 73 mg/dL (7-18)
[2020-08-30] MEDS: BUDESONIDE RESPULE INH 0.5 MG/2 ML AMPUL.NEB NEB SCH ×3 (07:05→15:00)
[2020-08-30] MEDS ORDERED: PANTOPRAZOLE 40 MG TABLET.DR PO SCH (07:30)
[2020-08-30] MEDS ORDERED: IPRATROPIUM NEB FS 0.5 MG/2.5 ML AMPUL.NEB HHN SCH (07:35)
--- NOTE | 2020-08-30 07:35 | NUR ---
ASSESSED PT ON BED ASLEEP BUT EASILY AROUSABLE, NOT IN RESPIRATORY DISTRESS, V/S STABLE, KEPT RESTED AND COMFORTABLE. WILL CONTINUE TO MONITOR.
[2020-08-30] MEDS: BLOOD SUGAR DIAGNOSTIC 1 EACH STRIP VI SCH ×4 (07:49→22:54)
[2020-08-30] MEDS: IPRATROPIUM BROMIDE 14 GM INHALER (or 12.9 GM) IH SCH ×3 (07:53→22:56)
[2020-08-30] MEDS: ALBUTEROL SULFATE 8 GM HFA.AER.AD IH SCH ×3 (07:53→22:56)
[2020-08-30] MEDS: INSULIN REGULAR, HUMAN 100 UNIT/ML 3 ML VIAL SQ PRN ×3 (07:54→17:35)
[2020-08-30] MEDS: MISOPROSTOL 100 MCG TABLET PO SCH ×4 (08:37→22:57)
[2020-08-30] MEDS: ISOSORBIDE DINITRATE (20MG) 20 MG TABLET PO SCH ×3 (08:42→16:34)
[2020-08-30] MEDS: FUROSEMIDE 40 MG/4 ML VIAL IV SCH (08:43)
[2020-08-30] MEDS ORDERED: ATORVASTATIN 10 MG TABLET ONE ×2 (08:45→08:46)
[2020-08-30] MEDS ORDERED: PROPRANOLOL HCL 10 MG TABLET ONE (08:46)
[2020-08-30] MEDS: ATORVASTATIN 10 MG TABLET PO SCH (08:48)
[2020-08-30] MEDS: PROPRANOLOL HCL 10 MG TABLET PO SCH ×2 (08:48→22:57)
[2020-08-30] MEDS ORDERED: SODIUM POLYSTYRENE SULFONATE 15 G/60 ML BOTTLE PO ONE (11:30)
--- NOTE | 2020-08-30 11:40 | NUR ---
SPOKED TO JANNA BRUCE PT'S SON GAVE CONSENT FOR UPPER ENDOSCOPY.
--- NOTE | 2020-08-30 11:45 | NUR ---
AT BEDSIDE FOR EVAL.
--- NOTE | 2020-08-30 12:50 | NUR ---
PT IS WHEELED TO OR FOR UPPER ENDOSCOPY.
--- NOTE | 2020-08-30 13:31 | NUR ---
BREATHING TX NOT GIVEN PT IS ON OR.
--- NOTE | 2020-08-30 13:58 | NUR ---
PT IS BACK FROM OR. PT IS AAOX3, NOT IN RESPIRATORY DISTRESS, V/S STABLE, KEPT RESTED AND COMFORTABLE. WILL CONTINUE TO MONITOR.
--- NOTE | 2020-08-30 14:16 | NUR ---
ROOM 111-1
--- NOTE | 2020-08-30 14:43 | NUR ---
REPORT GIVEN TO BHARGAVI STEWARD FOR HOMER.
[2020-08-30 15:16] VITALS: BP 105/78
--- NOTE | 2020-08-30 15:59 | NUR ---
PAID SEARCH MARKETING STRATEGIST NOTES RECEIVED PT FROM ER WITH CRISTIN SNATOS UNDER CARE OF DR MARQUEZ. PT ALERT, AWAKE BUT WITH CONFUSION. UPPER ARM MIDLINE IN PLACE AND FLUSHED WELL. VITAL SIGNS TAKEN. BODY CHECK DONE. BELONGINGS CHECKED BY WELDING MACHINE OPERATOR GAS. PT ON 4 LITERS NC. SATURATION 98%. HOSPITAL ORIENTATION DONE. KEEP BED IN LOWEST AND LOCKED POSITION. NO SOB NOTED. BOTH LEGS WITH EDEMA, KEEP ELEVATED TOLERATED. WILL CONTINUE TO MONITOR CLOSELY.
--- NOTE | 2020-08-30 18:31 | NUR ---
BUCKLE WIRE INSERTER NOTES PT IN THE BED ALERT WITH CONFUSION. 3L NC SATURATION 98% UPPER MIDLINE IN PLACE. FEED BY BULK PALLET BUILDER 100%. CALL DOCTOR LIZZETH ABOUT POTASSIUM 5.9. CALL LIGHT WAS IN REACH. BED IN LOW AND LOCKED POSITION. ALL NEEDS ATTENDED
--- NOTE | 2020-08-30 19:40 | NUR ---
TERRAZZO POLISHER HELPER OPENING NOTES PATIENT RESTING IN BED A/OX1; NOTED WITH CONFUSION. ON O2 3LPM VIA NASAL CANNULA AND TOLERATING WELL. EXTERNAL TELE DAIRY HAND READS NSR AT 66. NO C/O PAIN OR S/S OF DISTRESS AT THIS TIME. FRANCISCO JAVIER MIDLINE; PATENT AND INTACT. ALL NEEDS MET AT THIS TIME. SAFETY MEASURES IN PLACE; BED IN LOWEST LOCKED POSITION; SIDE RAILS UP X2, BED ALARM ON, CALL LIGHT WITHIN EASY REACH. WILL CONTINUE TO MONITOR.
[2020-08-30 20:00] VITALS: BP 116/51
[2020-08-30 22:00] VITALS: BP 116/51
[2020-08-30] MEDS: *INSULIN REGULAR(HUMULIN R)HUM 100 UNIT/ML VIAL SQ PRN (23:01)
[2020-08-31] VITALS: BP 118/58
--- NOTE | 2020-08-31 02:05 | NUR ---
SILVER DESIGNER NOTES PATIENT NOTED WITH POTASSIUM OF 5.9 FROM . ORDER OF KAYEXALATE 45MG PO WAS MISSED AND NOT ADMINISTERED. NOTIFIED DR. MARQUEZ. STATED TO WAIT FOR AM LAB RESULTS UNTIL FURTHER ORDERS.
[2020-08-31] MEDS: IPRATROPIUM BROMIDE 14 GM INHALER (or 12.9 GM) IH SCH ×4 (02:10→19:50)
[2020-08-31] MEDS: ALBUTEROL SULFATE 8 GM HFA.AER.AD IH SCH ×4 (02:11→19:51)
[2020-08-31 04:00] VITALS: BP 107/53
--- NOTE | 2020-08-31 05:50 | NUR ---
MOBILE UI DEVELOPER CLOSING NOTES PATIENT RESTING IN BED A/OX1; NOTED WITH CONFUSION. ON O2 3LPM VIA NASAL CANNULA AND TOLERATING WELL. EXTERNAL TELE MACHINE JOINT CUTTER READS NSR AT 65. FRANCISCO JAVIER MIDLINE; PATENT AND INTACT. ALL NEEDS MET AT THIS TIME. SAFETY MEASURES IN PLACE; BED IN LOWEST LOCKED POSITION; SIDE RAILS UP X2, BED ALARM ON, CALL LIGHT WITHIN EASY REACH. WILL CONTINUE TO MONITOR.
[2020-08-31 06:24] LABS: BASOPHILS % (AUTO) 0.2 % (0.0-2.0); EOSINOPHILS % (AUTO) 0.9 % (0.0-6.0); HEMATOCRIT 26 % (33-45); HEMOGLOBIN 8.1 g/dL (11.5-14.8); LYMPHOCYTES # (AUTO) 0.3 /CMM (0.8-4.8); LYMPHOCYTES % (AUTO) 5.4 % (20.0-44.0); MEAN CORPUSCULAR HGB CONC 31 g/dl (31.0-36.0); MEAN CORPUSCULAR VOLUME 94 fL (82-100); MONOCYTES # (AUTO) 0.2 /CMM (0.1-1.30); MONOCYTES % (AUTO) 3.7 % (2.0-12.0); NEUTROPHILS # (AUTO) 4.7 /CMM (1.8-8.9); NEUTROPHILS % (AUTO) 89.8 % (43.0-81.0); PLATELET COUNT (AUTO) 123 /CMM (150-450); RED BLOOD CELL COUNT(AUTO) 2.78 MIL/uL (4.0-5.2); WHITE BLOOD COUNT (AUTO) 5.3 K/uL (4.3-11.0)
[2020-08-31] MEDS: BLOOD SUGAR DIAGNOSTIC 1 EACH STRIP VI SCH ×4 (06:36→21:45)
[2020-08-31] MEDS: BUDESONIDE RESPULE INH 0.5 MG/2 ML AMPUL.NEB NEB SCH (07:05)
[2020-08-31 07:12] LABS: CALCIUM, SERUM 8.2 mg/dL (8.5-10.1); CARBON DIOXIDE 24 mmol/L (21-32); CHLORIDE 110 mmol/L (98-107); CREATININE 2.1 mg/dL (0.6-1.3); GLUCOSE 105 mg/dL (74-106); POTASSIUM 5.8 mmol/L (3.5-5.1); SODIUM SERUM 141 mmol/L (136-145); UREA NITROGEN, BLOOD 74 mg/dL (7-18)
--- NOTE | 2020-08-31 07:50 | NUR ---
RN OPENING NOTE PATIENT CURRENTLY IN STABLE CONDITION. VSS, PATIENT A&O x 1, PATIENT BED BOUND WITH FALL ALARM ACTIVATED. PATIENT WITH BILATERAL LE EDEMA +2, UPPER BACK SCAB, LARM BRUISE, BILATERAL GROIN AND ABDOMINAL REDNESS NOTED. PATIENT IS CURRENTLY ON 3L NC WITH NO SIGNS OF LABORED BREATHING. FRANCISCO JAVIER MIDLINE PATENT, INTACT, AND HAS NO SIGNS OF INFILTRATION. BED IS LOCKED IN LOWEST POSITION, CALL JOHN WITHIN REACH, 3 GUARD RAILS RAISED, AND ALL HOSPITAL SAFETY PRECAUTIONS ARE BEING FOLLOWED. WILL CONTINUE TO MONITOR THROUGHOUT SHIFT. END OPENING NOTE. BN
[2020-08-31 08:00] VITALS: BP 102/49
[2020-08-31] MEDS: ATORVASTATIN 10 MG TABLET PO SCH (08:06)
[2020-08-31] MEDS: MISOPROSTOL 100 MCG TABLET PO SCH ×4 (08:17→20:49)
[2020-08-31] MEDS: PROPRANOLOL HCL 10 MG TABLET PO SCH ×2 (08:19→20:49)
[2020-08-31] MEDS: ISOSORBIDE DINITRATE (20MG) 20 MG TABLET PO SCH ×3 (08:19→17:00)
[2020-08-31] MEDS: FUROSEMIDE 40 MG/4 ML VIAL IV SCH (08:19)
--- NOTE | 2020-08-31 09:00 | NUR ---
SUPERVISOR WET ROOM NOTE BP MEDICATIONS HELD DUE TO LOW BP. WILL CONTINUE TO MONITOR.
--- NOTE | 2020-08-31 09:56 | NUR ---
WOUND CARE CONSULT: REVIEWED CHART, NURSING DOCUMENTATION AND PHOTOS WHICH INDICATE SACRAL AND BACK DEEP TISSUE INJURIES, DISCOLORATIONS AND SCARRING TO LOWER LEGS, PRESENT ON ADMISSION. RECOMMEND SURGICAL CONSULT. DR MARTIN NOTIFIED OF CONSULT REQUEST. PT IS ON KALLIE ISOFLEX LOW AIRLOSS BED. RECOMMENDATIONS MADE FOR SKIN PROTECTION AND DISCUSSED WITH NURSING STAFF. MD IN AGREEMENT WITH PLAN OF CARE.
[2020-08-31] MEDS ORDERED: SODIUM POLYSTYRENE SULFONATE 15 G/60 ML BOTTLE PO ONE (11:30)
[2020-08-31 12:00] VITALS: BP 108/52
--- NOTE | 2020-08-31 12:23 | NUR ---
CABANA ATTENDANT NOTE 1300 ISOSORBIDE HELD DUE TO LOW BP. WILL CONTINUE TO MONITOR.
[2020-08-31 16:00] VITALS: BP 111/43
--- NOTE | 2020-08-31 18:50 | NUR ---
MS/RN CLOSING NOTE PATIENT A/O X1, CURRENTLY ON NC WITH NO S/S OF LABORED BREATHING, NSR ON TELE, PATIENT WITH SACRAL REDNESS WITH MEPILEX AND ZGUARD APPLIED, RUE MIDLINE IS PATIENT AND INTACT WITH NO S/S OF INFILTRATION, BED LOCKED IN LOWEST POSITION, 3 RAILS RAISED, ALL SAFETY PRECAUTIONS ARE BEING FOLLOWED. WILL INDORSE TO COIL FINISHER RN. END CLOSING NOTE. BN
--- NOTE | 2020-08-31 19:30 | NUR ---
RN OPENING NOTES: RECEIVED PT A/OX1 IN BED SLEEPING COMFORTABLY. PATIENT IN NO S/SX OF ACUTE DISTRESS AT THIS TIME. NO SOB NOTED. PATIENT'S BREATHING IS EVEN AND UNLABORED. PATIENT IS ON 3L OF OXYGEN VIA NC; TOLERATING WELL. PATIENT ON TELE MONITORING READING SINUS RHYTHM HR IS @65 AT THE TIME OF RECEIVED. PATIENT ON CCHO DIET; TOLERATES WELL. NOTED IV SITE ON R UA MIDLINE; PATENT, INTACT AND FLUSHING WELL; NO S/S OF INFECTION OR INFILTRATION. SAFETY MEASURES HAVE BEEN PROVIDED AND IMPLEMENTED. PATIENT BED ALARM IS ON. HEAD OF BED ELEVATED. BED IS LOCKED, IN LOWEST POSITION AND SIDE RAILS UP. CALL LIGHT WITHIN REACH OF THE PATIENT. APPLICABLE ISOLATION PRECAUTIONS IN PLACE. WILL CONTINUE TO MONITOR AND REASSESS FOR ANY CHANGES AND WILL CARRY OUT ANY ONGOING AND ACTIVE MD ORDER.
[2020-08-31 20:00] VITALS: BP 107/53
[2020-08-31] MEDS: *INSULIN REGULAR(HUMULIN R)HUM 100 UNIT/ML VIAL SQ PRN (21:44)
--- NOTE | 2020-08-31 23:00 | NUR ---
RN NOTES PATIENT REMAINS IN NO ACUTE RESPIRATORY DISTRESS AT THIS TIME, NO CHANGES TO CONDITION/STATUS. MARINE PHOTOGRAPHER WELL AWARE. WILL CONTINUE TO MONITOR AND REASSESS FOR ANY CHANGES THROUGHOUT THE SHIFT
[2020-08-31] MEDS: PANTOPRAZOLE 40 MG VIAL IV SCH (23:14)
[2020-09-01] VITALS: BP 110/49
[2020-09-01] MEDS: IPRATROPIUM BROMIDE 14 GM INHALER (or 12.9 GM) IH SCH ×4 (02:44→19:30)
[2020-09-01] MEDS: ALBUTEROL SULFATE 8 GM HFA.AER.AD IH SCH ×4 (02:45→19:30)
[2020-09-01 04:00] VITALS: BP 124/61
--- NOTE | 2020-09-01 06:37 | NUR ---
RN CLOSING NOTE: PATIENT REMAINS IN ROOM IN NO SIGNS OF RESPIRATORY DISTRESS, PATIENT STILL ON 3L OF O2 VIA NC;TOLERATING WELL SATURATING @ >95% SP02. SAFETY MEASURES IMPLEMENTED, BED IN LOWEST POSITION, LOCKED, SIDE RAILS UP, CALL LIGHT WITHIN REACH. ALL NEEDS AND ORDERS ADDRESSED DURING THE SHIFT. IV ACCESS MAINTAINED INTACT, SECURED AND FLUSHING WELL. ALL DUE MEDS GIVEN ORDERED & SCHEDULED ; PATIENT TOLERATED WELL. PATIENT KEPT CLEAN AND COMFORTABLE WITHIN THE SHIFT. PATIENT ENDORSED TO INCOMING SHIFT RN WITH STABLE VITAL SIGN AND FOR CONTINUITY OF CARE.
[2020-09-01 06:40] LABS: BASOPHILS % (AUTO) 0.5 % (0.0-2.0); EOSINOPHILS % (AUTO) 1.1 % (0.0-6.0); HEMATOCRIT 26 % (33-45); HEMOGLOBIN 8.2 g/dL (11.5-14.8); LYMPHOCYTES # (AUTO) 0.2 /CMM (0.8-4.8); LYMPHOCYTES % (AUTO) 5.8 % (20.0-44.0); MEAN CORPUSCULAR HGB CONC 31 g/dl (31.0-36.0); MEAN CORPUSCULAR VOLUME 94 fL (82-100); MONOCYTES # (AUTO) 0.2 /CMM (0.1-1.30); MONOCYTES % (AUTO) 3.8 % (2.0-12.0); NEUTROPHILS # (AUTO) 3.7 /CMM (1.8-8.9); NEUTROPHILS % (AUTO) 88.8 % (43.0-81.0); PLATELET COUNT (AUTO) 96 /CMM (150-450); RED BLOOD CELL COUNT(AUTO) 2.75 MIL/uL (4.0-5.2); WHITE BLOOD COUNT (AUTO) 4.1 K/uL (4.3-11.0)
[2020-09-01 07:08] LABS: CALCIUM, SERUM 7.8 mg/dL (8.5-10.1); CARBON DIOXIDE 25 mmol/L (21-32); CHLORIDE 110 mmol/L (98-107); CREATININE 2.1 mg/dL (0.6-1.3); GLUCOSE 98 mg/dL (74-106); POTASSIUM 5.5 mmol/L (3.5-5.1); SODIUM SERUM 141 mmol/L (136-145); UREA NITROGEN, BLOOD 72 mg/dL (7-18)
[2020-09-01] MEDS: BLOOD SUGAR DIAGNOSTIC 1 EACH STRIP VI SCH ×4 (07:41→21:24)
--- NOTE | 2020-09-01 07:45 | NUR ---
RN OPENING NOTE PATIENT IS IN BED WITH HOB AT SEMI FOWLERS POSITION. PATIENT IS CURRENTLY ON 3L NC WITH NO SIGNS OF LABORED BREATHING. PATIENT IS AOX1. PATIENT HAS A BACK SCAB WITH L ARM BRUISE, GROIN AND SACRAL REDNESS. FRANCISCO JAVIER MIDLINE IS PATENT, INTACT, AND HAS NO SIGNS OF INFILTRATION. BED IS LOCKED IN THE LOWEST POSITION, CALL JOHN WITHIN REACH, AND ALL HOSPITAL SAFETY PRECAUTIONS ARE BEING FOLLOWED. WILL CONTINUE TO MONITOR THROUGHOUT SHIFT.
[2020-09-01 08:00] VITALS: BP 133/109
[2020-09-01] MEDS: MISOPROSTOL 100 MCG TABLET PO SCH ×4 (09:05→21:24)
[2020-09-01] MEDS: ATORVASTATIN 10 MG TABLET PO SCH (09:06)
[2020-09-01] MEDS: PROPRANOLOL HCL 10 MG TABLET PO SCH ×2 (09:06→21:24)
[2020-09-01] MEDS: ISOSORBIDE DINITRATE (20MG) 20 MG TABLET PO SCH ×3 (09:06→16:45)
[2020-09-01] MEDS: FUROSEMIDE 40 MG/4 ML VIAL IV SCH (09:07)
[2020-09-01 09:11] LABS: LYMPHOCYTES % (MANUAL) 4 % (16-48); MONOCYTES % (MANUAL) 5 % (0-11.0); NEUTROPHILS % (MANUAL) 91 (42-76)
[2020-09-01] MEDS ORDERED: SODIUM POLYSTYRENE SULFONATE 15 G/60 ML BOTTLE PO ONE (11:00)
[2020-09-01] MEDS: *INSULIN REGULAR(HUMULIN R)HUM 100 UNIT/ML VIAL SQ PRN (12:54)
[2020-09-01] MEDS ORDERED: ETOMIDATE 2 MG/ML VIAL IV ONE (14:18)
--- NOTE | 2020-09-01 14:45 | NUR ---
RN NOTE PT REPORT TAKEN FROM BHARGAVI MIR. WILL ASSUME CARE FOR PT FROM THIS POINT FORWARD. PT IS STABLE WITH NO SIGNS OF RESP DISTRESS OR SOB, ON NC 3LPM. ALL PT SAFETY PRECAUTIONS IN PLACE. WILL CONT TO MONITOR
[2020-09-01] MEDS: BUDESONIDE RESPULE INH 0.5 MG/2 ML AMPUL.NEB NEB SCH (15:00)
--- NOTE | 2020-09-01 15:05 | NUR ---
RT BREATHING TX NOT GIVEN DUE TO COVID PROTOCOL, AEROSOL TX NOT GIVEN TO PT IN COVID UNIT THAT IS EITHER POSITIVE OR RO.
[2020-09-01 16:00] VITALS: BP 118/54
--- NOTE | 2020-09-01 18:32 | NUR ---
RN CLOSING NOTE NO CHANGES TO PT STATUS DURING SHIFT. PT ON 3LPM NC, NO SIGNS OF SOB OR RESP DISTRESS, BREATHING EVEN AND UNLABORED. ALL PT SAFETY PRECAUTIONS IN PLACE. WILL ENDORSE HOMER TO ONCOMING RN
--- NOTE | 2020-09-01 19:36 | NUR ---
MS RN OPENING NOTE Patient is a/o x1-2, portuguese speaking. Breathing even, unlabored on 3 LPM NC. No acute distress or SOB noted. IV site FRANCISCO JAVIER midline saline locked. Patent and intact. No signs of redness or infiltration. Redness noted on sacrum and right groin. Scabs noted on upper back. Bed in low position, wheels locked, side rails up x2, call light within reach.
[2020-09-01 20:04] VITALS: BP 128/59
[2020-09-01 20:05] VITALS: BP 128/59
[2020-09-01] MEDS: PANTOPRAZOLE 40 MG VIAL IV SCH (22:32)
[2020-09-02] MEDS: IPRATROPIUM BROMIDE 14 GM INHALER (or 12.9 GM) IH SCH ×3 (00:30→13:40)
[2020-09-02] MEDS: ALBUTEROL SULFATE 8 GM HFA.AER.AD IH SCH ×3 (00:30→13:41)
--- NOTE | 2020-09-02 06:05 | NUR ---
MS RN CLOSING NOTE Patient is a/o x1-2. Breathing even, unlabored on 3 LPM NC. No acute distress or SOB noted. IV site FRANCISCO JAVIER midline saline locked. Redness noted on sacrum and right groin. Kept clean and dry. Scabs noted on upper back. Patient turned and repositioned. All scheduled medications administered as ordered. All needs met. Bed in low position, wheels locked, side rails up x2, call light within reach.
[2020-09-02] MEDS: BUDESONIDE RESPULE INH 0.5 MG/2 ML AMPUL.NEB NEB SCH (06:15)
[2020-09-02] MEDS: BLOOD SUGAR DIAGNOSTIC 1 EACH STRIP VI SCH ×2 (06:39→12:34)
--- NOTE | 2020-09-02 07:50 | NUR ---
Patient is a/o x1-2, south korean speaking, sitting upright in bed eating breakfast. Respirations even, unlabored at 3 LPM NC. No acute distress nor c/o pain/discomforts noted. FRANCISCO JAVIER midline patent/intact/saline lock. Redness to sacrum/right groin/scabs noted on upper back. Bed in low position, wheels locked, side rails up x2, call light within reach.
[2020-09-02 08:00] VITALS: BP 103/46
[2020-09-02] MEDS: MISOPROSTOL 100 MCG TABLET PO SCH ×2 (08:20→13:14)
[2020-09-02 08:23] VITALS: BP 103/46
[2020-09-02] MEDS: FUROSEMIDE 40 MG/4 ML VIAL IV SCH (08:23)
[2020-09-02] MEDS: ISOSORBIDE DINITRATE (20MG) 20 MG TABLET PO SCH ×2 (08:23→13:00)
[2020-09-02] MEDS: PROPRANOLOL HCL 10 MG TABLET PO SCH (08:23)
--- NOTE | 2020-09-02 11:47 | NUR ---
Discharge report called to UTE LYONS @ [facility] @ 1958, request midline to stay intact on discharge. Granddaughter made aware of discharge status.
--- NOTE | 2020-09-02 12:33 | NUR ---
1200 blood sugar 124, no insulin given per protocol.
[2020-09-02 12:52] LABS: CALCIUM, SERUM 7.9 mg/dL (8.5-10.1); CARBON DIOXIDE 27 mmol/L (21-32); CHLORIDE 110 mmol/L (98-107); GLUCOSE 138 mg/dL (74-106); POTASSIUM 4.6 mmol/L (3.5-5.1); SODIUM SERUM 143 mmol/L (136-145); UREA NITROGEN, BLOOD 65 mg/dL (7-18)
--- NOTE | 2020-09-02 14:42 | NUR ---
Ambulance here at this time, report given, discharge pictures taken. Patient transported from facility on stretcher x 2 personnel, [id number], no acute distress.
== END 2020-09-02 15:01 | DRG 383 ==
LOC: ER 19:09 → TRANSITION 22:10 → TELE1 08-30 14:20 → MEDSG1 09-01 08:16
PROVIDERS: ADMIT Internal Medicine; ATTEND Nurse Practitioner Acute Care
PROC: 0DB68ZX Excision of Stomach, Via Natural or Artificial Opening Endoscopic, Diagnostic (ICD-10-PCS; principal; 2020-08-30)
DX: K25.9 Gastric ulcer, unspecified as acute or chronic, without hemorrhage or perforation (principal); J96.01 Acute respiratory failure with hypoxia; I50.33 Acute on chronic diastolic (congestive) heart failure; U07.1 COVID-19; I13.0 Hypertensive heart and chronic kidney disease with heart failure and stage 1 through stage 4 chronic kidney disease, or unspecified chronic kidney disease; G93.40 Encephalopathy, unspecified; D68.59 Other primary thrombophilia; R18.8 Other ascites; E44.0 Moderate protein-calorie malnutrition; K29.70 Gastritis, unspecified, without bleeding; E11.42 Type 2 diabetes mellitus with diabetic polyneuropathy; E03.9 Hypothyroidism, unspecified; E87.5 Hyperkalemia; K21.00 Gastro-esophageal reflux disease with esophagitis, without bleeding; I25.10 Atherosclerotic heart disease of native coronary artery without angina pectoris; K44.9 Diaphragmatic hernia without obstruction or gangrene; I27.20 Pulmonary hypertension, unspecified; I35.2 Nonrheumatic aortic (valve) stenosis with insufficiency; M81.0 Age-related osteoporosis without current pathological fracture; N18.9 Chronic kidney disease, unspecified; D63.8 Anemia in other chronic diseases classified elsewhere; E11.22 Type 2 diabetes mellitus with diabetic chronic kidney disease; M79.7 Fibromyalgia; Z95.1 Presence of aortocoronary bypass graft; Z90.49 Acquired absence of other specified parts of digestive tract; Z88.1 Allergy status to other antibiotic agents; Z79.84 Long term (current) use of oral hypoglycemic drugs; Z79.51 Long term (current) use of inhaled steroids; Z79.899 Other long term (current) drug therapy; Z95.0 Presence of cardiac pacemaker; K74.60 Unspecified cirrhosis of liver; I07.1 Rheumatic tricuspid insufficiency; Z68.30 Body mass index [BMI] 30.0-30.9, adult; E66.9 Obesity, unspecified; Z74.09 Other reduced mobility; F03.90 Unspecified dementia, unspecified severity, without behavioral disturbance, psychotic disturbance, mood disturbance, and anxiety; E78.5 Hyperlipidemia, unspecified; Z82.49 Family history of ischemic heart disease and other diseases of the circulatory system; Z83.3 Family history of diabetes mellitus; Z86.73 Personal history of transient ischemic attack (TIA), and cerebral infarction without residual deficits; D64.9 Anemia, unspecified
CPT/HCPCS: 36415; 71045-TC; 76700-TC; 80048-TC; 80076-TC; 82962-TC; 83690-TC; 83735-TC; 83880; 84100-TC; 84484-TC; 85025-TC; 85610-TC; 85730-TC; 87081-TC; 88305-TC; 88312-TC; 88342; 93308-TC; C9113; G0378; J0610; J1815; J1940; J2405; J3490; U0003

== ENCOUNTER 2020-09-27 19:15 | Inpatient (IN) | payer MEDICARE, OTHER ==
[~2020-09-27] VITALS: Ht 165.1 cm; Wt 87.5 kg
[~2020-09-27 19:15] MED LIST changes: -Levofloxacin (250MG) PO
[2020-09-27 21:00] LABS: CALCIUM, SERUM 8.3 mg/dL (8.5-10.1); CARBON DIOXIDE 22 mmol/L (21-32); CHLORIDE 106 mmol/L (98-107); CREATININE 3.8 mg/dL (0.6-1.3); GLUCOSE 157 mg/dL (74-106); POTASSIUM 3.7 mmol/L (3.5-5.1); SODIUM SERUM 138 mmol/L (136-145); UREA NITROGEN, BLOOD 73 mg/dL (7-18)
[2020-09-27 21:01] LABS: EOSINOPHILS % (AUTO) 1.1 % (0.0-6.0); HEMATOCRIT 29 % (33-45); HEMOGLOBIN 8.7 g/dL (11.5-14.8); LYMPHOCYTES # (AUTO) 0.5 /CMM (0.8-4.8); LYMPHOCYTES % (AUTO) 17.3 % (20.0-44.0); MEAN CORPUSCULAR HGB CONC 30 g/dl (31.0-36.0); MEAN CORPUSCULAR VOLUME 96 fL (82-100); MONOCYTES # (AUTO) 0.3 /CMM (0.1-1.30); MONOCYTES % (AUTO) 9.3 % (2.0-12.0); NEUTROPHILS # (AUTO) 2.1 /CMM (1.8-8.9); NEUTROPHILS % (AUTO) 71.3 % (43.0-81.0); PLATELET COUNT (AUTO) 93 /CMM (150-450); RED BLOOD CELL COUNT(AUTO) 3.02 MIL/uL (4.0-5.2)
[2020-09-27 21:13] LABS: ALANINE AMINOTRANSFERASE 9 U/L (12-78); ALBUMIN 2.8 g/dL (3.4-5.0); ALKALINE PHOSPHATASE 97 U/L (46-116); ASPARTATE AMINOTRANSFERASE 11 U/L (15-37); B-TYPE NATRIURETIC PEPTIDE 51199 PG/ML (0-125); BILIRUBIN,TOTAL 1.5 mg/dL (0.2-1.0); LIPASE 146 U/L (73-393); TOTAL PROTEIN, SERUM 6.4 g/dL (6.4-8.2)
[2020-09-27 22:07] LABS: EOSINOPHILS % (MANUAL) 2 % (0-4); LYMPHOCYTES % (MANUAL) 16 % (16-48); MONOCYTES % (MANUAL) 9 % (0-11.0); NEUTROPHILS % (MANUAL) 73 (42-76)
[2020-09-27] MEDS ORDERED: Z GUARD REMEDY 2 OZ OINT TP PRN (22:30)
[2020-09-27] MEDS ORDERED: TEMAZEPAM 15 MG CAPSULE PO PRN (22:30)
[2020-09-27] MEDS ORDERED: ALBUMIN 25% 12.5 GM/50 ML BOTTLE IV ONE (22:30)
[2020-09-27] MEDS ORDERED: MORPHINE SULFATE INJ 2 MG/ML DISP.SYRIN IV PRN (22:30)
[2020-09-27] MEDS ORDERED: MAGNESIUM HYDROXIDE 30 ML UDC PO PRN (22:30)
[2020-09-27] MEDS ORDERED: ACETAMINOPHEN 325 MG TABLET PO PRN (22:30)
[2020-09-27] MEDS ORDERED: MAG HYDROX/AL HYDROX/SIMETH 30 ML UDC PO PRN (22:30)
[2020-09-27 23:10] VITALS: BP 117/61
[2020-09-28 04:00] VITALS: BP 95/54
[2020-09-28 06:53] LABS: BASOPHILS % (AUTO) 0.7 % (0.0-2.0); EOSINOPHILS % (AUTO) 2.1 % (0.0-6.0); HEMATOCRIT 33 % (33-45); HEMOGLOBIN 9.6 g/dL (11.5-14.8); LYMPHOCYTES # (AUTO) 0.8 /CMM (0.8-4.8); MEAN CORPUSCULAR HGB CONC 30 g/dl (31.0-36.0); MEAN CORPUSCULAR VOLUME 100 fL (82-100); MONOCYTES # (AUTO) 0.4 /CMM (0.1-1.30); MONOCYTES % (AUTO) 8.7 % (2.0-12.0); NEUTROPHILS # (AUTO) 3.1 /CMM (1.8-8.9); NEUTROPHILS % (AUTO) 70.5 % (43.0-81.0); PLATELET COUNT (AUTO) 107 /CMM (150-450); RED BLOOD CELL COUNT(AUTO) 3.27 MIL/uL (4.0-5.2); WHITE BLOOD COUNT (AUTO) 4.4 K/uL (4.3-11.0)
[2020-09-28] MEDS: PANTOPRAZOLE 40 MG TABLET.DR PO SCH (07:30)
[2020-09-28 07:32] LABS: CALCIUM, SERUM 8.4 mg/dL (8.5-10.1); CARBON DIOXIDE 20 mmol/L (21-32); CHLORIDE 105 mmol/L (98-107); CREATININE 3.8 mg/dL (0.6-1.3); GLUCOSE 132 mg/dL (74-106); MAGNESIUM 1.8 mg/dL (1.8-2.4); POTASSIUM 3.9 mmol/L (3.5-5.1); SODIUM SERUM 138 mmol/L (136-145); UREA NITROGEN, BLOOD 74 mg/dL (7-18)
[2020-09-28] MEDS ORDERED: [UNRECOGNIZED DRUG - CODE] IV (08:09)
[2020-09-28] MEDS ORDERED: SODI10PO PO (08:09)
[2020-09-28] MEDS ORDERED: FERR325T23 PO (08:09)
[2020-09-28] MEDS ORDERED: DOCU-141 PO (08:09)
[2020-09-28] MEDS ORDERED: ASCO500C17 PO (08:09)
[2020-09-28] MEDS ORDERED: MULT-447 PO (08:09)
[2020-09-28] MEDS ORDERED: AMIN887L PO (08:09)
[2020-09-28] MEDS ORDERED: MAGN200T9 PO (08:09)
[2020-09-28] MEDS ORDERED: BISA10SU11 RC (08:09)
[2020-09-28] MEDS ORDERED: LEVO25TA7 PO (08:09)
[2020-09-28] MEDS ORDERED: CRAN425C6 PO (08:09)
[2020-09-28] MEDS ORDERED: CHOL200013 PO (08:09)
[2020-09-28] MEDS ORDERED: ZINC220C6 PO (08:09)
[2020-09-28 09:11] LABS: EOSINOPHILS % (MANUAL) 2 % (0-4); LYMPHOCYTES % (MANUAL) 19 % (16-48); MONOCYTES % (MANUAL) 8 % (0-11.0); NEUTROPHILS % (MANUAL) 71 (42-76)
[2020-09-28] MEDS: ALBUMIN 25% 25 GM in PREMIX 1 EA IV SCH ×2 (10:12→17:29)
[2020-09-28] MEDS: NYSTATIN TOP POWDER 15 GM BOTTLE TP SCH ×2 (11:28→16:22)
[2020-09-28 12:00] VITALS: BP 97/46
[2020-09-28 20:00] VITALS: BP 92/52
[2020-09-29] VITALS: BP 91/47
[2020-09-29] MEDS: ALBUMIN 25% 25 GM in PREMIX 1 EA IV SCH (02:10)
[2020-09-29 04:00] VITALS: BP 97/47
[2020-09-29 07:19] LABS: BASOPHILS % (AUTO) 1.1 % (0.0-2.0); EOSINOPHILS % (AUTO) 1.3 % (0.0-6.0); HEMATOCRIT 29 % (33-45); HEMOGLOBIN 8.7 g/dL (11.5-14.8); LYMPHOCYTES # (AUTO) 0.5 /CMM (0.8-4.8); LYMPHOCYTES % (AUTO) 16.2 % (20.0-44.0); MEAN CORPUSCULAR HGB CONC 30 g/dl (31.0-36.0); MEAN CORPUSCULAR VOLUME 96 fL (82-100); MONOCYTES # (AUTO) 0.2 /CMM (0.1-1.30); MONOCYTES % (AUTO) 8.1 % (2.0-12.0); NEUTROPHILS % (AUTO) 73.3 % (43.0-81.0); PLATELET COUNT (AUTO) 66 /CMM (150-450); RED BLOOD CELL COUNT(AUTO) 2.99 MIL/uL (4.0-5.2); WHITE BLOOD COUNT (AUTO) 2.8 K/uL (4.3-11.0)
[2020-09-29] MEDS: PANTOPRAZOLE 40 MG TABLET.DR PO SCH (07:30)
[2020-09-29 07:33] LABS: CALCIUM, SERUM 8.1 mg/dL (8.5-10.1); CARBON DIOXIDE 22 mmol/L (21-32); CHLORIDE 106 mmol/L (98-107); GLUCOSE 115 mg/dL (74-106); POTASSIUM 3.8 mmol/L (3.5-5.1); SODIUM SERUM 139 mmol/L (136-145); UREA NITROGEN, BLOOD 79 mg/dL (7-18)
[2020-09-29 08:00] VITALS: BP 110/52
[2020-09-29] MEDS: MIDODRINE HCL (5MG) 5 MG TABLET PO SCH ×3 (09:00→16:35)
[2020-09-29] MEDS ORDERED: OCTREOTIDE 50 MCG/ML AMPUL SQ SCH (09:00)
[2020-09-29] MEDS: NYSTATIN TOP POWDER 15 GM BOTTLE TP SCH ×2 (09:13→17:01)
[2020-09-29] MEDS: OCTREOTIDE 100 MCG/ML VIAL SQ SCH ×3 (10:21→17:00)
[2020-09-29 10:32] LABS: EOSINOPHILS % (MANUAL) 2 % (0-4); LYMPHOCYTES % (MANUAL) 16 % (16-48); MONOCYTES % (MANUAL) 6 % (0-11.0); NEUTROPHILS % (MANUAL) 76 (42-76)
[2020-09-29 12:00] VITALS: BP 94/46
[2020-09-29 16:00] VITALS: BP 92/46
[2020-09-29] MEDS: FOLIC ACID 1 MG TABLET PO SCH (16:00)
[2020-09-29] MEDS ORDERED: LACTULOSE 10 G/15 ML UDC (PYXIS) PO PRN (16:00)
[2020-09-29] MEDS ORDERED: DEXTROSE 50%-WATER 50 ML DISP.SYRIN IV PRN (18:30)
[2020-09-29 20:00] VITALS: BP 116/70
[2020-09-29] MEDS: BLOOD SUGAR DIAGNOSTIC 1 EACH STRIP IN SCH (22:21)
[2020-09-30] VITALS: BP 91/52
[2020-09-30 04:00] VITALS: BP 94/53
[2020-09-30 06:33] LABS: BASOPHILS % (AUTO) 0.6 % (0.0-2.0); EOSINOPHILS % (AUTO) 0.7 % (0.0-6.0); HEMATOCRIT 31 % (33-45); HEMOGLOBIN 9.4 g/dL (11.5-14.8); LYMPHOCYTES # (AUTO) 0.8 /CMM (0.8-4.8); LYMPHOCYTES % (AUTO) 20.4 % (20.0-44.0); MEAN CORPUSCULAR HGB CONC 30 g/dl (31.0-36.0); MEAN CORPUSCULAR VOLUME 98 fL (82-100); MONOCYTES # (AUTO) 0.3 /CMM (0.1-1.30); MONOCYTES % (AUTO) 7.4 % (2.0-12.0); NEUTROPHILS # (AUTO) 2.8 /CMM (1.8-8.9); NEUTROPHILS % (AUTO) 70.9 % (43.0-81.0); PLATELET COUNT (AUTO) 69 /CMM (150-450); RED BLOOD CELL COUNT(AUTO) 3.22 MIL/uL (4.0-5.2); WHITE BLOOD COUNT (AUTO) 3.9 K/uL (4.3-11.0)
[2020-09-30 07:29] LABS: ALANINE AMINOTRANSFERASE < 6 U/L (12-78); ALKALINE PHOSPHATASE 92 U/L (46-116); ASPARTATE AMINOTRANSFERASE 18 U/L (15-37); BILIRUBIN,TOTAL 1.6 mg/dL (0.2-1.0); CALCIUM, SERUM 8.7 mg/dL (8.5-10.1); CARBON DIOXIDE 19 mmol/L (21-32); CHLORIDE 104 mmol/L (98-107); CREATININE 4.3 mg/dL (0.6-1.3); GLUCOSE 113 mg/dL (74-106); PHOSPHORUS 5.7 mg/dL (2.5-4.9); POTASSIUM 4.2 mmol/L (3.5-5.1); SODIUM SERUM 138 mmol/L (136-145); TOTAL PROTEIN, SERUM 6.5 g/dL (6.4-8.2); UREA NITROGEN, BLOOD 73 mg/dL (7-18)
[2020-09-30] MEDS: PANTOPRAZOLE 40 MG TABLET.DR PO SCH (07:30)
[2020-09-30 08:00] VITALS: BP 87/47
[2020-09-30 08:48] LABS: IRON, SERUM 71 ug/dl (50-175); TOTAL IRON BINDING CAPACITY 127 ug/dl (250-450)
[2020-09-30] MEDS: MIDODRINE HCL (5MG) 5 MG TABLET PO SCH ×3 (09:00→17:44)
[2020-09-30] MEDS: NYSTATIN TOP POWDER 15 GM BOTTLE TP SCH ×2 (09:00→17:44)
[2020-09-30] MEDS: FOLIC ACID 1 MG TABLET PO SCH (09:00)
[2020-09-30] MEDS: OCTREOTIDE 100 MCG/ML VIAL SQ SCH ×3 (09:00→13:00)
[2020-09-30] MEDS: BLOOD SUGAR DIAGNOSTIC 1 EACH STRIP IN SCH ×4 (10:06→22:49)
[2020-09-30 11:11] LABS: CREATINE KINASE, TOTAL 21 U/L (26-192); FERRITIN 219 ng/mL (8-388); THYROID STIMULATING HORMONE 13.583 uIU/mL (0.358-3.74)
[2020-09-30 12:00] VITALS: BP 107/47
[2020-09-30 16:00] VITALS: BP 92/55
[2020-09-30] MEDS: OCTREOTIDE 50 MCG/ML AMPUL SQ SCH (17:00)
[2020-09-30 20:00] VITALS: BP 97/47
[2020-10-01] VITALS: BP 90/40
[2020-10-01 04:00] VITALS: BP 93/29
[2020-10-01 07:06] LABS: PTH, INTACT 89 pg/mL (15-65)
[2020-10-01 08:00] VITALS: BP 107/54
[2020-10-01 08:06] LABS: IMMUNOGLOBULIN A, SERUM 356 mg/dL (64-422); IMMUNOGLOBULIN G, SERUM 1593 mg/dL (586-1602); IMMUNOGLOBULIN M, SERUM 109 mg/dL (26-217)
[2020-10-01] MEDS: PANTOPRAZOLE 40 MG TABLET.DR PO SCH (08:08)
[2020-10-01] MEDS: FOLIC ACID 1 MG TABLET PO SCH (08:08)
[2020-10-01] MEDS: MIDODRINE HCL (5MG) 5 MG TABLET PO SCH ×3 (08:09→17:00)
[2020-10-01] MEDS: BLOOD SUGAR DIAGNOSTIC 1 EACH STRIP IN SCH ×4 (08:10→21:56)
[2020-10-01] MEDS: OCTREOTIDE 50 MCG/ML AMPUL SQ SCH ×3 (09:24→17:23)
[2020-10-01] MEDS: NYSTATIN TOP POWDER 15 GM BOTTLE TP SCH ×2 (09:24→17:24)
[2020-10-01 12:00] VITALS: BP 103/48
[2020-10-01] MEDS ORDERED: Medication Not On Formulary EA (Budesonide/Formoterol Fumarate (Symbicort 160-4.5 Mcg In IH PRN (12:00)
[2020-10-01] MEDS ORDERED: MAGNESIUM HYDROXIDE 30 ML UDC PO PRN (12:00)
[2020-10-01] MEDS ORDERED: MECLIZINE HCL 25 MG TABLET PO PRN (12:00)
[2020-10-01] MEDS ORDERED: ACETAMINOPHEN 325 MG TABLET PO PRN ×2 (12:00)
[2020-10-01] MEDS ORDERED: BISACODYL SUPP (10 MG) 10 MG/SUPP.RECT SUPP.RECT RC PRN (12:00)
[2020-10-01] MEDS: MISOPROSTOL 100 MCG TABLET PO SCH ×3 (12:34→21:00)
[2020-10-01] MEDS: ISOSORBIDE DINITRATE (20MG) 20 MG TABLET PO SCH ×2 (12:34→17:00)
[2020-10-01] MEDS ORDERED: Medication Not On Formulary EA (Cranberry Extract (Cranberry) 850 MG) PO SCH (13:00)
[2020-10-01] MEDS ORDERED: IPRATROPIUM NEB FS 0.5 MG/2.5 ML AMPUL.NEB NEB SCH (13:30)
[2020-10-01 15:37] LABS: BASOPHILS % (AUTO) 0.6 % (0.0-2.0); EOSINOPHILS % (AUTO) 0.9 % (0.0-6.0); HEMATOCRIT 31 % (33-45); LYMPHOCYTES # (AUTO) 0.7 /CMM (0.8-4.8); LYMPHOCYTES % (AUTO) 18.1 % (20.0-44.0); MEAN CORPUSCULAR HGB CONC 29 g/dl (31.0-36.0); MEAN CORPUSCULAR VOLUME 102 fL (82-100); MONOCYTES # (AUTO) 0.3 /CMM (0.1-1.30); NEUTROPHILS # (AUTO) 2.6 /CMM (1.8-8.9); NEUTROPHILS % (AUTO) 73.4 % (43.0-81.0); PLATELET COUNT (AUTO) 60 /CMM (150-450); RED BLOOD CELL COUNT(AUTO) 3.08 MIL/uL (4.0-5.2); WHITE BLOOD COUNT (AUTO) 3.6 K/uL (4.3-11.0)
[2020-10-01 15:50] LABS: ALANINE AMINOTRANSFERASE < 6 U/L (12-78); ALBUMIN 2.6 g/dL (3.4-5.0); ALKALINE PHOSPHATASE 92 U/L (46-116); ASPARTATE AMINOTRANSFERASE 12 U/L (15-37); BILIRUBIN,TOTAL 1.5 mg/dL (0.2-1.0); CALCIUM, SERUM 8.2 mg/dL (8.5-10.1); CARBON DIOXIDE 23 mmol/L (21-32); CHLORIDE 107 mmol/L (98-107); CREATININE 4.9 mg/dL (0.6-1.3); GLUCOSE 180 mg/dL (74-106); SODIUM SERUM 140 mmol/L (136-145); TOTAL PROTEIN, SERUM 5.9 g/dL (6.4-8.2); UREA NITROGEN, BLOOD 76 mg/dL (7-18)
[2020-10-01 16:00] VITALS: BP 104/64
[2020-10-01 16:03] LABS: BAND % (MANUAL) 2 % (0.0-5.0); LYMPHOCYTES % (MANUAL) 15 % (16-48); MONOCYTES % (MANUAL) 5 % (0-11.0); NEUTROPHILS % (MANUAL) 78 (42-76)
[2020-10-01] MEDS: INSULIN REGULAR, HUMAN 100 UNIT/ML 3 ML VIAL SQ PRN ×2 (18:02→21:54)
[2020-10-01 20:00] VITALS: BP 95/50
[2020-10-01] MEDS: PROPRANOLOL HCL 10 MG TABLET PO SCH (21:00)
[2020-10-01] MEDS: ATORVASTATIN 10 MG TABLET PO SCH (21:56)
[2020-10-02] VITALS: BP 91/50
[2020-10-02 04:00] VITALS: BP 94/49
[2020-10-02] MEDS: PANTOPRAZOLE 40 MG TABLET.DR PO SCH (07:30)
[2020-10-02] MEDS ORDERED: PANTOPRAZOLE 40 MG TABLET.DR PO SCH (07:30)
[2020-10-02 08:00] VITALS: BP 82/48
[2020-10-02 08:07] LABS: *SPE A/G RATIO 0.9 (0.7-1.7); *SPE ALBUMIN 2.9 g/dL (2.9-4.4); *SPE ALPHA-1-GLOBULIN 0.2 g/dL (0.0-0.4); *SPE ALPHA-2-GLOBULIN 0.5 g/dL (0.4-1.0); *SPE BETA GLOBULIN 0.7 g/dL (0.7-1.3); *SPE GLOBULIN, TOTAL 3.1 g/dL (2.2-3.9); *SPE M-SPIKE Not Observed g/dL (Not Observed); *SPEGAMMA GLOBULIN 1.6 g/dL (0.4-1.8)
[2020-10-02] MEDS: BLOOD SUGAR DIAGNOSTIC 1 EACH STRIP IN SCH ×4 (08:52→21:19)
[2020-10-02] MEDS: FLUTICASONE/VILANTEROL 1 EACH BLST.W.DEV IH SCH (08:54)
[2020-10-02] MEDS: PROPRANOLOL HCL 10 MG TABLET PO SCH ×2 (08:54→21:00)
[2020-10-02] MEDS: DOCUSATE SODIUM 100 MG CAPSULE PO SCH (08:54)
[2020-10-02] MEDS: SPIRONOLACTONE 25 MG TABLET PO SCH (08:54)
[2020-10-02] MEDS: ISOSORBIDE DINITRATE (20MG) 20 MG TABLET PO SCH ×3 (08:55→17:00)
[2020-10-02] MEDS: MIDODRINE HCL (5MG) 5 MG TABLET PO SCH ×3 (08:55→17:00)
[2020-10-02] MEDS: MAGNESIUM OXIDE 400 MG TABLET PO SCH (08:55)
[2020-10-02] MEDS: FOLIC ACID 1 MG TABLET PO SCH (08:55)
[2020-10-02] MEDS: FERROUS SULFATE (325 MG) 325 MG/TAB TABLET PO SCH (08:55)
[2020-10-02] MEDS: MISOPROSTOL 100 MCG TABLET PO SCH ×4 (08:55→20:58)
[2020-10-02] MEDS: CHOLECALCIFEROL 1,000 UNIT TABLET (VIT D3) PO SCH (08:56)
[2020-10-02] MEDS: MULTIVIT W/MINERALS 1 TAB TABLET PO SCH (08:56)
[2020-10-02] MEDS: LINAGLIPTIN 5 MG TABLET PO SCH (08:56)
[2020-10-02] MEDS: LEVOTHYROXINE SODIUM 25 MCG TABLET PO SCH (08:56)
[2020-10-02] MEDS ORDERED: Medication Not On Formulary EA (Sodium Zirconium Cyclosilicate (Lokelma) 10 GM) PO SCH (09:00)
[2020-10-02] MEDS ORDERED: TIOTROPIUM BROMIDE 6 CAP/BOX CAP.W.DEV IH SCH (09:00)
[2020-10-02] MEDS: NYSTATIN TOP POWDER 15 GM BOTTLE TP SCH ×2 (09:01→17:41)
[2020-10-02 09:07] LABS: *ANA ANTI-CENTROMERE B AB <0.2 AI (0.0-0.9); *ANA ANTI-DNA(DS) AB, QN 1 IU/mL (0-9); *ANA ANTI-JO-1 <0.2 AI (0.0-0.9); *ANA ANTICHROMATIN ANTIBODY <0.2 AI (0.0-0.9); *ANA RNP ANTIBODIES 0.4 AI (0.0-0.9); *ANA SJOGREN'S ANTI-SS-A <0.2 AI (0.0-0.9); *ANA SJOGREN'S ANTI-SS-B <0.2 AI (0.0-0.9); *ANAANTI-SCLERODERMA-70 AB <0.2 AI (0.0-0.9); *ANASMITH AB <0.2 AI (0.0-0.9)
[2020-10-02] MEDS: OCTREOTIDE 50 MCG/ML AMPUL SQ SCH ×3 (09:23→17:35)
[2020-10-02] MEDS: INSULIN REGULAR, HUMAN 100 UNIT/ML 3 ML VIAL SQ PRN (12:15)
[2020-10-02 16:00] VITALS: BP 101/44
[2020-10-02 20:10] VITALS: BP 92/45
[2020-10-02] MEDS: ATORVASTATIN 10 MG TABLET PO SCH (21:19)
[2020-10-03] MEDS: BLOOD SUGAR DIAGNOSTIC 1 EACH STRIP IN SCH ×4 (06:40→23:09)
[2020-10-03 08:00] VITALS: BP 106/49
[2020-10-03] MEDS: NYSTATIN TOP POWDER 15 GM BOTTLE TP SCH ×2 (09:00→17:00)
[2020-10-03] MEDS: FLUTICASONE/VILANTEROL 1 EACH BLST.W.DEV IH SCH (09:00)
[2020-10-03] MEDS: PROPRANOLOL HCL 10 MG TABLET PO SCH ×2 (09:00→21:18)
[2020-10-03] MEDS: INSULIN REGULAR, HUMAN 100 UNIT/ML 3 ML VIAL SQ PRN (09:26)
[2020-10-03 09:32] LABS: EOSINOPHILS % (AUTO) 0.9 % (0.0-6.0); HEMATOCRIT 34 % (33-45); HEMOGLOBIN 9.7 g/dL (11.5-14.8); LYMPHOCYTES # (AUTO) 0.6 /CMM (0.8-4.8); LYMPHOCYTES % (AUTO) 14.5 % (20.0-44.0); MEAN CORPUSCULAR HGB CONC 28 g/dl (31.0-36.0); MEAN CORPUSCULAR VOLUME 103 fL (82-100); MONOCYTES # (AUTO) 0.2 /CMM (0.1-1.30); MONOCYTES % (AUTO) 5.7 % (2.0-12.0); NEUTROPHILS # (AUTO) 3.2 /CMM (1.8-8.9); NEUTROPHILS % (AUTO) 77.9 % (43.0-81.0); PLATELET COUNT (AUTO) 55 /CMM (150-450); RED BLOOD CELL COUNT(AUTO) 3.32 MIL/uL (4.0-5.2); WHITE BLOOD COUNT (AUTO) 4.1 K/uL (4.3-11.0)
[2020-10-03] MEDS: CHOLECALCIFEROL 1,000 UNIT TABLET (VIT D3) PO SCH (10:43)
[2020-10-03] MEDS: MIDODRINE HCL (5MG) 5 MG TABLET PO SCH ×4 (10:44→18:21)
[2020-10-03] MEDS: PANTOPRAZOLE 40 MG TABLET.DR PO SCH (10:44)
[2020-10-03] MEDS: FERROUS SULFATE (325 MG) 325 MG/TAB TABLET PO SCH (10:44)
[2020-10-03] MEDS: LINAGLIPTIN 5 MG TABLET PO SCH (10:45)
[2020-10-03] MEDS: LEVOTHYROXINE SODIUM 25 MCG TABLET PO SCH (10:45)
[2020-10-03] MEDS: MISOPROSTOL 100 MCG TABLET PO SCH ×5 (10:45→21:21)
[2020-10-03] MEDS: FOLIC ACID 1 MG TABLET PO SCH (10:45)
[2020-10-03] MEDS: MULTIVIT W/MINERALS 1 TAB TABLET PO SCH (10:46)
[2020-10-03] MEDS: SPIRONOLACTONE 25 MG TABLET PO SCH (10:46)
[2020-10-03] MEDS: ISOSORBIDE DINITRATE (20MG) 20 MG TABLET PO SCH ×4 (10:46→18:21)
[2020-10-03] MEDS: DOCUSATE SODIUM 100 MG CAPSULE PO SCH (10:46)
[2020-10-03] MEDS: MAGNESIUM OXIDE 400 MG TABLET PO SCH (10:47)
[2020-10-03] MEDS: OCTREOTIDE 50 MCG/ML AMPUL SQ SCH ×3 (10:51→18:20)
[2020-10-03 11:01] LABS: CALCIUM, SERUM 8.3 mg/dL (8.5-10.1); CARBON DIOXIDE 16 mmol/L (21-32); CHLORIDE 109 mmol/L (98-107); CREATININE 5.2 mg/dL (0.6-1.3); GLUCOSE 148 mg/dL (74-106); POTASSIUM 4.4 mmol/L (3.5-5.1); SODIUM SERUM 140 mmol/L (136-145); UREA NITROGEN, BLOOD 78 mg/dL (7-18)
[2020-10-03 11:02] LABS: ALANINE AMINOTRANSFERASE 8 U/L (12-78); ALBUMIN 2.4 g/dL (3.4-5.0); ALKALINE PHOSPHATASE 86 U/L (46-116); ASPARTATE AMINOTRANSFERASE 18 U/L (15-37); BILIRUBIN,TOTAL 1.5 mg/dL (0.2-1.0); PHOSPHORUS 5.8 mg/dL (2.5-4.9)
[2020-10-03 11:03] LABS: TOTAL PROTEIN, SERUM 6.3 g/dL (6.4-8.2)
[2020-10-03 16:00] VITALS: BP 110/56
[2020-10-03 20:00] VITALS: BP 102/66
[2020-10-03] MEDS: ATORVASTATIN 10 MG TABLET PO SCH (21:18)
[2020-10-04 04:00] VITALS: BP 109/88
[2020-10-04] MEDS: BLOOD SUGAR DIAGNOSTIC 1 EACH STRIP IN SCH ×4 (08:27→23:29)
[2020-10-04] MEDS: DOCUSATE SODIUM 100 MG CAPSULE PO SCH (08:27)
[2020-10-04] MEDS: CHOLECALCIFEROL 1,000 UNIT TABLET (VIT D3) PO SCH (08:28)
[2020-10-04] MEDS: FERROUS SULFATE (325 MG) 325 MG/TAB TABLET PO SCH (08:28)
[2020-10-04] MEDS: MISOPROSTOL 100 MCG TABLET PO SCH ×4 (08:28→21:00)
[2020-10-04] MEDS: MIDODRINE HCL (5MG) 5 MG TABLET PO SCH ×3 (08:29→17:14)
[2020-10-04] MEDS: LEVOTHYROXINE SODIUM 25 MCG TABLET PO SCH (08:29)
[2020-10-04] MEDS: SPIRONOLACTONE 25 MG TABLET PO SCH (08:29)
[2020-10-04] MEDS: MULTIVIT W/MINERALS 1 TAB TABLET PO SCH (08:29)
[2020-10-04] MEDS: MAGNESIUM OXIDE 400 MG TABLET PO SCH (08:30)
[2020-10-04] MEDS: PANTOPRAZOLE 40 MG TABLET.DR PO SCH (08:30)
[2020-10-04] MEDS: FOLIC ACID 1 MG TABLET PO SCH (08:31)
[2020-10-04] MEDS: ISOSORBIDE DINITRATE (20MG) 20 MG TABLET PO SCH ×3 (08:33→17:15)
[2020-10-04] MEDS: PROPRANOLOL HCL 10 MG TABLET PO SCH ×2 (08:37→21:00)
[2020-10-04] MEDS: FLUTICASONE/VILANTEROL 1 EACH BLST.W.DEV IH SCH (08:37)
[2020-10-04] MEDS: LINAGLIPTIN 5 MG TABLET PO SCH (08:37)
[2020-10-04] MEDS: OCTREOTIDE 50 MCG/ML AMPUL SQ SCH ×3 (08:41→17:16)
[2020-10-04] MEDS: INSULIN REGULAR, HUMAN 100 UNIT/ML 3 ML VIAL SQ PRN ×3 (08:43→17:52)
[2020-10-04] MEDS: NYSTATIN TOP POWDER 15 GM BOTTLE TP SCH ×2 (09:16→17:17)
[2020-10-04] MEDS ORDERED: ALBUTEROL SULFATE INH 18 GM HFA.AER.AD IH PRN (11:30)
[2020-10-04 12:00] VITALS: BP 97/42
[2020-10-04 12:02] LABS: CALCIUM, SERUM 8.3 mg/dL (8.5-10.1); CARBON DIOXIDE 20 mmol/L (21-32); CHLORIDE 107 mmol/L (98-107); CREATININE 5.2 mg/dL (0.6-1.3); GLUCOSE 165 mg/dL (74-106); MAGNESIUM 1.9 mg/dL (1.8-2.4); PHOSPHORUS 5.6 mg/dL (2.5-4.9); POTASSIUM 4.6 mmol/L (3.5-5.1); SODIUM SERUM 141 mmol/L (136-145)
[2020-10-04 12:04] LABS: UREA NITROGEN, BLOOD 81 mg/dL (7-18)
[2020-10-04 12:05] LABS: BASOPHILS % (AUTO) 0.5 % (0.0-2.0); EOSINOPHILS % (AUTO) 0.8 % (0.0-6.0); HEMATOCRIT 31 % (33-45); LYMPHOCYTES # (AUTO) 0.5 /CMM (0.8-4.8); LYMPHOCYTES % (AUTO) 12.8 % (20.0-44.0); MEAN CORPUSCULAR HGB CONC 29 g/dl (31.0-36.0); MEAN CORPUSCULAR VOLUME 99 fL (82-100); MONOCYTES # (AUTO) 0.2 /CMM (0.1-1.30); MONOCYTES % (AUTO) 4.9 % (2.0-12.0); NEUTROPHILS # (AUTO) 2.9 /CMM (1.8-8.9); PLATELET COUNT (AUTO) 63 /CMM (150-450); RED BLOOD CELL COUNT(AUTO) 3.12 MIL/uL (4.0-5.2); WHITE BLOOD COUNT (AUTO) 3.6 K/uL (4.3-11.0)
[2020-10-04 12:38] LABS: LYMPHOCYTES % (MANUAL) 14 % (16-48); MONOCYTES % (MANUAL) 4 % (0-11.0); NEUTROPHILS % (MANUAL) 82 (42-76)
[2020-10-04 16:56] LABS: ALBUMIN 2.5 g/dL (3.4-5.0); BILIRUBIN,DIRECT 0.6 mg/dL (0.0-0.2); BILIRUBIN,TOTAL 1.4 mg/dL (0.2-1.0); TOTAL PROTEIN, SERUM 6.1 g/dL (6.4-8.2)
[2020-10-04] MEDS: ONDANSETRON HCL/PF 4 MG/2 ML VIAL IVP PRN ×2 (17:25→17:56)
[2020-10-04 20:00] VITALS: BP 102/55
[2020-10-04] MEDS: ATORVASTATIN 10 MG TABLET PO SCH (22:00)
[2020-10-05 04:00] VITALS: BP 101/52
[2020-10-05 06:34] LABS: BASOPHILS % (AUTO) 0.7 % (0.0-2.0); EOSINOPHILS % (AUTO) 0.6 % (0.0-6.0); HEMATOCRIT 29 % (33-45); LYMPHOCYTES # (AUTO) 0.8 /CMM (0.8-4.8); LYMPHOCYTES % (AUTO) 18.2 % (20.0-44.0); MEAN CORPUSCULAR HGB CONC 31 g/dl (31.0-36.0); MEAN CORPUSCULAR VOLUME 95 fL (82-100); MONOCYTES # (AUTO) 0.3 /CMM (0.1-1.30); MONOCYTES % (AUTO) 7.2 % (2.0-12.0); NEUTROPHILS # (AUTO) 3.3 /CMM (1.8-8.9); NEUTROPHILS % (AUTO) 73.3 % (43.0-81.0); PLATELET COUNT (AUTO) 70 /CMM (150-450); RED BLOOD CELL COUNT(AUTO) 3.04 MIL/uL (4.0-5.2); WHITE BLOOD COUNT (AUTO) 4.4 K/uL (4.3-11.0)
[2020-10-05 06:51] LABS: CALCIUM, SERUM 7.9 mg/dL (8.5-10.1); CARBON DIOXIDE 23 mmol/L (21-32); CHLORIDE 109 mmol/L (98-107); CREATININE 5.4 mg/dL (0.6-1.3); GLUCOSE 85 mg/dL (74-106); MAGNESIUM 1.8 mg/dL (1.8-2.4); PHOSPHORUS 5.3 mg/dL (2.5-4.9); POTASSIUM 4.5 mmol/L (3.5-5.1); SODIUM SERUM 141 mmol/L (136-145)
[2020-10-05 07:09] LABS: UREA NITROGEN, BLOOD 87 mg/dL (7-18)
[2020-10-05] MEDS: PANTOPRAZOLE 40 MG TABLET.DR PO SCH (07:30)
[2020-10-05] MEDS: BLOOD SUGAR DIAGNOSTIC 1 EACH STRIP IN SCH ×4 (07:39→22:08)
[2020-10-05] MEDS: FLUTICASONE/VILANTEROL 1 EACH BLST.W.DEV IH SCH (08:53)
[2020-10-05] MEDS: MAGNESIUM OXIDE 400 MG TABLET PO SCH (08:54)
[2020-10-05] MEDS: FOLIC ACID 1 MG TABLET PO SCH (08:54)
[2020-10-05] MEDS: DOCUSATE SODIUM 100 MG CAPSULE PO SCH (08:54)
[2020-10-05] MEDS: ISOSORBIDE DINITRATE (20MG) 20 MG TABLET PO SCH ×3 (08:54→17:00)
[2020-10-05] MEDS: PROPRANOLOL HCL 10 MG TABLET PO SCH ×2 (08:54→21:58)
[2020-10-05] MEDS: SPIRONOLACTONE 25 MG TABLET PO SCH (08:54)
[2020-10-05] MEDS: FERROUS SULFATE (325 MG) 325 MG/TAB TABLET PO SCH (08:54)
[2020-10-05] MEDS: MISOPROSTOL 100 MCG TABLET PO SCH ×4 (08:54→21:58)
[2020-10-05] MEDS: LINAGLIPTIN 5 MG TABLET PO SCH (08:55)
[2020-10-05] MEDS: LEVOTHYROXINE SODIUM 25 MCG TABLET PO SCH (08:55)
[2020-10-05] MEDS: NYSTATIN TOP POWDER 15 GM BOTTLE TP SCH ×2 (08:55→16:56)
[2020-10-05] MEDS: OCTREOTIDE 50 MCG/ML AMPUL SQ SCH ×3 (08:55→17:00)
[2020-10-05] MEDS: MULTIVIT W/MINERALS 1 TAB TABLET PO SCH (08:55)
[2020-10-05] MEDS: CHOLECALCIFEROL 1,000 UNIT TABLET (VIT D3) PO SCH (08:55)
[2020-10-05] MEDS: MIDODRINE HCL (5MG) 5 MG TABLET PO SCH ×3 (08:55→17:00)
[2020-10-05] MEDS: LACTULOSE 10 G/15 ML UDC (PYXIS) PO SCH ×4 (12:00→23:38)
[2020-10-05] MEDS: DEXAMETHASONE SOD PHOSPHATE 10 MG/ML VIAL IV SCH (12:07)
[2020-10-05 16:27] VITALS: BP 102/51
[2020-10-05] MEDS: GLUCERNA SHAKE 237 ML CAN PO SCH (16:56)
[2020-10-05 20:00] VITALS: BP 117/53
[2020-10-05] MEDS: ATORVASTATIN 10 MG TABLET PO SCH (21:58)
[2020-10-06 04:00] VITALS: BP 117/49
[2020-10-06] MEDS: LACTULOSE 10 G/15 ML UDC (PYXIS) PO SCH ×3 (05:22→17:43)
[2020-10-06] MEDS: BLOOD SUGAR DIAGNOSTIC 1 EACH STRIP IN SCH ×5 (07:30→22:27)
[2020-10-06] MEDS: PANTOPRAZOLE 40 MG TABLET.DR PO SCH (07:30)
[2020-10-06 08:00] VITALS: BP 104/54
[2020-10-06] MEDS: GLUCERNA SHAKE 237 ML CAN PO SCH ×2 (08:00→17:00)
[2020-10-06] MEDS: MAGNESIUM OXIDE 400 MG TABLET PO SCH (09:00)
[2020-10-06] MEDS: MULTIVIT W/MINERALS 1 TAB TABLET PO SCH (09:00)
[2020-10-06] MEDS: OCTREOTIDE 50 MCG/ML AMPUL SQ SCH ×3 (09:00→17:17)
[2020-10-06] MEDS: FOLIC ACID 1 MG TABLET PO SCH (09:00)
[2020-10-06] MEDS: DEXAMETHASONE SOD PHOSPHATE 10 MG/ML VIAL IV SCH (09:00)
[2020-10-06] MEDS: FLUTICASONE/VILANTEROL 1 EACH BLST.W.DEV IH SCH (09:00)
[2020-10-06] MEDS: NYSTATIN TOP POWDER 15 GM BOTTLE TP SCH ×2 (09:00→17:19)
[2020-10-06] MEDS: LINAGLIPTIN 5 MG TABLET PO SCH (09:00)
[2020-10-06] MEDS: PROPRANOLOL HCL 10 MG TABLET PO SCH ×2 (09:00→21:00)
[2020-10-06] MEDS: SPIRONOLACTONE 25 MG TABLET PO SCH (09:00)
[2020-10-06] MEDS: MIDODRINE HCL (5MG) 5 MG TABLET PO SCH ×3 (09:00→17:00)
[2020-10-06] MEDS: MISOPROSTOL 100 MCG TABLET PO SCH ×4 (09:00→21:30)
[2020-10-06] MEDS: ISOSORBIDE DINITRATE (20MG) 20 MG TABLET PO SCH ×3 (09:00→17:00)
[2020-10-06] MEDS: FERROUS SULFATE (325 MG) 325 MG/TAB TABLET PO SCH (09:00)
[2020-10-06] MEDS: CHOLECALCIFEROL 1,000 UNIT TABLET (VIT D3) PO SCH (09:00)
[2020-10-06] MEDS: DOCUSATE SODIUM 100 MG CAPSULE PO SCH (09:00)
[2020-10-06] MEDS: LEVOTHYROXINE SODIUM 25 MCG TABLET PO SCH (09:00)
[2020-10-06 09:40] LABS: CALCIUM, SERUM 8.5 mg/dL (8.5-10.1); CARBON DIOXIDE 18 mmol/L (21-32); CHLORIDE 108 mmol/L (98-107); CREATININE 5.3 mg/dL (0.6-1.3); GLUCOSE 151 mg/dL (74-106); MAGNESIUM 1.9 mg/dL (1.8-2.4); PHOSPHORUS 6.4 mg/dL (2.5-4.9); POTASSIUM 4.7 mmol/L (3.5-5.1); SODIUM SERUM 142 mmol/L (136-145)
[2020-10-06 09:43] LABS: UREA NITROGEN, BLOOD 83 mg/dL (7-18)
[2020-10-06 09:47] LABS: BASOPHILS % (AUTO) 0.2 % (0.0-2.0); HEMATOCRIT 33 % (33-45); HEMOGLOBIN 9.5 g/dL (11.5-14.8); LYMPHOCYTES # (AUTO) 0.5 /CMM (0.8-4.8); LYMPHOCYTES % (AUTO) 13.3 % (20.0-44.0); MEAN CORPUSCULAR HGB CONC 29 g/dl (31.0-36.0); MEAN CORPUSCULAR VOLUME 101 fL (82-100); MONOCYTES # (AUTO) 0.1 /CMM (0.1-1.30); MONOCYTES % (AUTO) 3.6 % (2.0-12.0); NEUTROPHILS # (AUTO) 3.4 /CMM (1.8-8.9); NEUTROPHILS % (AUTO) 82.9 % (43.0-81.0); PLATELET COUNT (AUTO) 74 /CMM (150-450); RED BLOOD CELL COUNT(AUTO) 3.27 MIL/uL (4.0-5.2); WHITE BLOOD COUNT (AUTO) 4.1 K/uL (4.3-11.0)
[2020-10-06] MEDS: INSULIN REGULAR, HUMAN 100 UNIT/ML 3 ML VIAL SQ PRN ×2 (12:59→22:29)
[2020-10-06 20:00] VITALS: BP 102/50
[2020-10-06] MEDS: ATORVASTATIN 10 MG TABLET PO SCH (21:30)
[2020-10-07] VITALS (7 sets, daily range): BP systolic 102–113; BP diastolic 51–63
[2020-10-07] MEDS: LACTULOSE 10 G/15 ML UDC (PYXIS) PO SCH ×5 (06:00→23:10)
[2020-10-07] MEDS: PANTOPRAZOLE 40 MG TABLET.DR PO SCH (07:30)
[2020-10-07] MEDS: BLOOD SUGAR DIAGNOSTIC 1 EACH STRIP IN SCH ×4 (07:49→21:26)
[2020-10-07] MEDS: INSULIN REGULAR, HUMAN 100 UNIT/ML 3 ML VIAL SQ PRN ×4 (07:50→21:29)
[2020-10-07] MEDS: GLUCERNA SHAKE 237 ML CAN PO SCH ×2 (08:12→17:24)
[2020-10-07] MEDS: NYSTATIN TOP POWDER 15 GM BOTTLE TP SCH ×2 (08:58→17:23)
[2020-10-07] MEDS: DOCUSATE SODIUM 100 MG CAPSULE PO SCH (09:00)
[2020-10-07] MEDS: MAGNESIUM OXIDE 400 MG TABLET PO SCH (09:00)
[2020-10-07] MEDS: FLUTICASONE/VILANTEROL 1 EACH BLST.W.DEV IH SCH (09:00)
[2020-10-07] MEDS: MULTIVIT W/MINERALS 1 TAB TABLET PO SCH (09:00)
[2020-10-07] MEDS: FERROUS SULFATE (325 MG) 325 MG/TAB TABLET PO SCH (09:00)
[2020-10-07] MEDS: PROPRANOLOL HCL 10 MG TABLET PO SCH ×2 (09:00→20:50)
[2020-10-07] MEDS: CHOLECALCIFEROL 1,000 UNIT TABLET (VIT D3) PO SCH (09:00)
[2020-10-07] MEDS: ISOSORBIDE DINITRATE (20MG) 20 MG TABLET PO SCH ×3 (09:00→17:23)
[2020-10-07] MEDS: OCTREOTIDE 50 MCG/ML AMPUL SQ SCH ×3 (09:03→17:23)
[2020-10-07] MEDS: DEXAMETHASONE SOD PHOSPHATE 10 MG/ML VIAL IV SCH (09:04)
[2020-10-07] MEDS: LEVOTHYROXINE SODIUM 25 MCG TABLET PO SCH (09:33)
[2020-10-07] MEDS: FOLIC ACID 1 MG TABLET PO SCH (09:33)
[2020-10-07] MEDS: SPIRONOLACTONE 25 MG TABLET PO SCH (09:33)
[2020-10-07] MEDS: MISOPROSTOL 100 MCG TABLET PO SCH ×4 (09:34→20:50)
[2020-10-07] MEDS: MIDODRINE HCL (5MG) 5 MG TABLET PO SCH ×3 (09:34→17:23)
[2020-10-07] MEDS: LINAGLIPTIN 5 MG TABLET PO SCH (09:34)
[2020-10-07 19:48] LABS: CALCIUM, SERUM 8.2 mg/dL (8.5-10.1); CARBON DIOXIDE 21 mmol/L (21-32); CHLORIDE 110 mmol/L (98-107); CREATININE 5.7 mg/dL (0.6-1.3); GLUCOSE 172 mg/dL (74-106); PHOSPHORUS 6.4 mg/dL (2.5-4.9); POTASSIUM 5.2 mmol/L (3.5-5.1); SODIUM SERUM 142 mmol/L (136-145)
[2020-10-07 19:51] LABS: UREA NITROGEN, BLOOD 89 mg/dL (7-18)
[2020-10-07] MEDS: ATORVASTATIN 10 MG TABLET PO SCH (21:09)
[2020-10-07 23:26] LABS: BASOPHILS % (AUTO) 0.3 % (0.0-2.0); HEMATOCRIT 33 % (33-45); HEMOGLOBIN 9.7 g/dL (11.5-14.8); LYMPHOCYTES # (AUTO) 0.6 /CMM (0.8-4.8); LYMPHOCYTES % (AUTO) 8.2 % (20.0-44.0); MEAN CORPUSCULAR HGB CONC 30 g/dl (31.0-36.0); MEAN CORPUSCULAR VOLUME 98 fL (82-100); MONOCYTES # (AUTO) 0.1 /CMM (0.1-1.30); MONOCYTES % (AUTO) 1.9 % (2.0-12.0); NEUTROPHILS # (AUTO) 6.9 /CMM (1.8-8.9); NEUTROPHILS % (AUTO) 89.6 % (43.0-81.0); PLATELET COUNT (AUTO) 66 /CMM (150-450); RED BLOOD CELL COUNT(AUTO) 3.37 MIL/uL (4.0-5.2); WHITE BLOOD COUNT (AUTO) 7.7 K/uL (4.3-11.0)
[2020-10-08] VITALS: BP 98/60
[2020-10-08] MEDS: LACTULOSE 10 G/15 ML UDC (PYXIS) PO SCH ×4 (06:00→23:31)
[2020-10-08] MEDS: BLOOD SUGAR DIAGNOSTIC 1 EACH STRIP IN SCH ×4 (07:30→21:40)
[2020-10-08 08:00] VITALS: BP 117/70
[2020-10-08] MEDS: GLUCERNA SHAKE 237 ML CAN PO SCH (08:34)
[2020-10-08] MEDS: LEVOTHYROXINE SODIUM 25 MCG TABLET PO SCH (09:24)
[2020-10-08] MEDS: MAGNESIUM OXIDE 400 MG TABLET PO SCH (09:24)
[2020-10-08] MEDS: CHOLECALCIFEROL 1,000 UNIT TABLET (VIT D3) PO SCH (09:24)
[2020-10-08] MEDS: LINAGLIPTIN 5 MG TABLET PO SCH (09:24)
[2020-10-08] MEDS: FERROUS SULFATE (325 MG) 325 MG/TAB TABLET PO SCH (09:25)
[2020-10-08] MEDS: MISOPROSTOL 100 MCG TABLET PO SCH ×4 (09:25→20:18)
[2020-10-08] MEDS: MIDODRINE HCL (5MG) 5 MG TABLET PO SCH ×3 (09:25→17:58)
[2020-10-08] MEDS: PANTOPRAZOLE 40 MG TABLET.DR PO SCH (09:25)
[2020-10-08] MEDS: ISOSORBIDE DINITRATE (20MG) 20 MG TABLET PO SCH ×3 (09:25→17:58)
[2020-10-08] MEDS: FOLIC ACID 1 MG TABLET PO SCH (09:26)
[2020-10-08] MEDS: DOCUSATE SODIUM 100 MG CAPSULE PO SCH (09:26)
[2020-10-08] MEDS: DEXAMETHASONE SOD PHOSPHATE 10 MG/ML VIAL IV SCH (09:26)
[2020-10-08] MEDS: SPIRONOLACTONE 25 MG TABLET PO SCH (09:26)
[2020-10-08] MEDS: PROPRANOLOL HCL 10 MG TABLET PO SCH ×2 (09:26→20:18)
[2020-10-08] MEDS: MULTIVIT W/MINERALS 1 TAB TABLET PO SCH (09:26)
[2020-10-08] MEDS: NYSTATIN TOP POWDER 15 GM BOTTLE TP SCH ×2 (09:27→17:00)
[2020-10-08] MEDS: FLUTICASONE/VILANTEROL 1 EACH BLST.W.DEV IH SCH (09:27)
[2020-10-08] MEDS: INSULIN REGULAR, HUMAN 100 UNIT/ML 3 ML VIAL SQ PRN ×4 (10:24→21:41)
[2020-10-08] MEDS: OCTREOTIDE 50 MCG/ML AMPUL SQ SCH ×3 (10:28→17:59)
[2020-10-08] MEDS ORDERED: NEPRO VAN 237 ML CAN PO PRN (11:00)
[2020-10-08 16:00] VITALS: BP 119/71
[2020-10-08 19:25] LABS: BASOPHILS % (AUTO) 0.6 % (0.0-2.0); HEMATOCRIT 32 % (33-45); HEMOGLOBIN 9.5 g/dL (11.5-14.8); LYMPHOCYTES # (AUTO) 0.4 /CMM (0.8-4.8); LYMPHOCYTES % (AUTO) 6.9 % (20.0-44.0); MEAN CORPUSCULAR HGB CONC 29 g/dl (31.0-36.0); MEAN CORPUSCULAR VOLUME 99 fL (82-100); MONOCYTES # (AUTO) 0.1 /CMM (0.1-1.30); MONOCYTES % (AUTO) 1.2 % (2.0-12.0); NEUTROPHILS # (AUTO) 5.3 /CMM (1.8-8.9); NEUTROPHILS % (AUTO) 91.3 % (43.0-81.0); PLATELET COUNT (AUTO) 66 /CMM (150-450); RED BLOOD CELL COUNT(AUTO) 3.26 MIL/uL (4.0-5.2); WHITE BLOOD COUNT (AUTO) 5.8 K/uL (4.3-11.0)
[2020-10-08 19:47] LABS: ALANINE AMINOTRANSFERASE 9 U/L (12-78); ALBUMIN 2.4 g/dL (3.4-5.0); ALKALINE PHOSPHATASE 65 U/L (46-116); ASPARTATE AMINOTRANSFERASE 12 U/L (15-37); BILIRUBIN,TOTAL 1.4 mg/dL (0.2-1.0); CALCIUM, SERUM 8.1 mg/dL (8.5-10.1); CARBON DIOXIDE 19 mmol/L (21-32); CHLORIDE 109 mmol/L (98-107); CREATININE 5.6 mg/dL (0.6-1.3); GLUCOSE 243 mg/dL (74-106); MAGNESIUM 1.8 mg/dL (1.8-2.4); PHOSPHORUS 6.2 mg/dL (2.5-4.9); SODIUM SERUM 142 mmol/L (136-145); TOTAL PROTEIN, SERUM 6.3 g/dL (6.4-8.2)
[2020-10-08 19:50] LABS: UREA NITROGEN, BLOOD 91 mg/dL (7-18)
[2020-10-08 20:23] LABS: BAND % (MANUAL) 2 % (0.0-5.0); LYMPHOCYTES % (MANUAL) 3 % (16-48); MONOCYTES % (MANUAL) 4 % (0-11.0); NEUTROPHILS % (MANUAL) 91 (42-76)
[2020-10-08] MEDS: ATORVASTATIN 10 MG TABLET PO SCH (21:08)
[2020-10-09] VITALS: BP 120/70
[2020-10-09] MEDS: LACTULOSE 10 G/15 ML UDC (PYXIS) PO SCH ×3 (05:08→17:00)
[2020-10-09 07:45] LABS: CALCIUM, SERUM 8.3 mg/dL (8.5-10.1); CARBON DIOXIDE 17 mmol/L (21-32); CHLORIDE 107 mmol/L (98-107); CREATININE 5.6 mg/dL (0.6-1.3); GLUCOSE 146 mg/dL (74-106); MAGNESIUM 2.1 mg/dL (1.8-2.4); PHOSPHORUS 6.3 mg/dL (2.5-4.9); POTASSIUM 5.2 mmol/L (3.5-5.1); SODIUM SERUM 141 mmol/L (136-145)
[2020-10-09 07:56] LABS: UREA NITROGEN, BLOOD 94 mg/dL (7-18)
[2020-10-09 08:00] VITALS: BP 135/84
[2020-10-09] MEDS: FLUTICASONE/VILANTEROL 1 EACH BLST.W.DEV IH SCH (08:44)
[2020-10-09] MEDS: BLOOD SUGAR DIAGNOSTIC 1 EACH STRIP IN SCH ×4 (08:44→22:05)
[2020-10-09] MEDS: FOLIC ACID 1 MG TABLET PO SCH (08:45)
[2020-10-09] MEDS: MIDODRINE HCL (5MG) 5 MG TABLET PO SCH ×3 (08:45→17:01)
[2020-10-09] MEDS: DOCUSATE SODIUM 100 MG CAPSULE PO SCH (08:45)
[2020-10-09] MEDS: CHOLECALCIFEROL 1,000 UNIT TABLET (VIT D3) PO SCH (08:45)
[2020-10-09] MEDS: DEXAMETHASONE SOD PHOSPHATE 10 MG/ML VIAL IV SCH (08:45)
[2020-10-09] MEDS: MULTIVIT W/MINERALS 1 TAB TABLET PO SCH (08:45)
[2020-10-09] MEDS: LEVOTHYROXINE SODIUM 25 MCG TABLET PO SCH (08:45)
[2020-10-09] MEDS: MISOPROSTOL 100 MCG TABLET PO SCH ×4 (08:45→20:52)
[2020-10-09] MEDS: SPIRONOLACTONE 25 MG TABLET PO SCH (08:46)
[2020-10-09] MEDS: LINAGLIPTIN 5 MG TABLET PO SCH (08:46)
[2020-10-09] MEDS: MAGNESIUM OXIDE 400 MG TABLET PO SCH (08:46)
[2020-10-09] MEDS: ISOSORBIDE DINITRATE (20MG) 20 MG TABLET PO SCH ×3 (08:46→17:01)
[2020-10-09] MEDS: PROPRANOLOL HCL 10 MG TABLET PO SCH ×2 (08:46→20:52)
[2020-10-09] MEDS: FERROUS SULFATE (325 MG) 325 MG/TAB TABLET PO SCH (08:46)
[2020-10-09] MEDS: OCTREOTIDE 50 MCG/ML AMPUL SQ SCH ×3 (08:47→17:02)
[2020-10-09] MEDS: NYSTATIN TOP POWDER 15 GM BOTTLE TP SCH ×2 (08:47→17:01)
[2020-10-09] MEDS: PANTOPRAZOLE 40 MG TABLET.DR PO SCH (08:51)
[2020-10-09] MEDS: INSULIN REGULAR, HUMAN 100 UNIT/ML 3 ML VIAL SQ PRN ×3 (12:27→22:13)
[2020-10-09 13:10] LABS: LYMPHOCYTES # (AUTO) 0.9 /CMM (0.8-4.8); MONOCYTES # (AUTO) 0.3 /CMM (0.1-1.30); MONOCYTES % (AUTO) 3.3 % (2.0-12.0); RED BLOOD CELL COUNT(AUTO) 3.64 MIL/uL (4.0-5.2)
[2020-10-09 13:17] LABS: BASOPHILS % (AUTO) 0.3 % (0.0-2.0); HEMATOCRIT 37 % (33-45); HEMOGLOBIN 10.6 g/dL (11.5-14.8); LYMPHOCYTES % (AUTO) 9.5 % (20.0-44.0); MEAN CORPUSCULAR HGB CONC 29 g/dl (31.0-36.0); MEAN CORPUSCULAR VOLUME 100 fL (82-100); NEUTROPHILS # (AUTO) 8.2 /CMM (1.8-8.9); NEUTROPHILS % (AUTO) 86.9 % (43.0-81.0); PLATELET COUNT (AUTO) 103 /CMM (150-450); WHITE BLOOD COUNT (AUTO) 9.4 K/uL (4.3-11.0)
[2020-10-09 16:00] VITALS: BP 108/65
[2020-10-09] MEDS: ATORVASTATIN 10 MG TABLET PO SCH (21:21)
[2020-10-10] VITALS: BP 106/60
[2020-10-10] MEDS: LACTULOSE 10 G/15 ML UDC (PYXIS) PO SCH ×4 (00:08→18:00)
[2020-10-10 07:15] LABS: ALANINE AMINOTRANSFERASE 9 U/L (12-78); ALBUMIN 2.5 g/dL (3.4-5.0); ALKALINE PHOSPHATASE 70 U/L (46-116); ASPARTATE AMINOTRANSFERASE 17 U/L (15-37); BILIRUBIN,TOTAL 2.4 mg/dL (0.2-1.0); CALCIUM, SERUM 8.1 mg/dL (8.5-10.1); CARBON DIOXIDE 18 mmol/L (21-32); CHLORIDE 105 mmol/L (98-107); GLUCOSE 131 mg/dL (74-106); MAGNESIUM 1.8 mg/dL (1.8-2.4); PHOSPHORUS 5.5 mg/dL (2.5-4.9); POTASSIUM 4.4 mmol/L (3.5-5.1); SODIUM SERUM 139 mmol/L (136-145); TOTAL PROTEIN, SERUM 6.5 g/dL (6.4-8.2); UREA NITROGEN, BLOOD 77 mg/dL (7-18)
[2020-10-10] MEDS: PANTOPRAZOLE 40 MG TABLET.DR PO SCH ×2 (07:30→09:30)
[2020-10-10 08:00] VITALS: BP 103/63
[2020-10-10] MEDS: BLOOD SUGAR DIAGNOSTIC 1 EACH STRIP IN SCH ×3 (08:07→17:34)
[2020-10-10] MEDS: PROPRANOLOL HCL 10 MG TABLET PO SCH ×2 (09:00→09:28)
[2020-10-10] MEDS: DOCUSATE SODIUM 100 MG CAPSULE PO SCH ×2 (09:00→09:29)
[2020-10-10] MEDS: LINAGLIPTIN 5 MG TABLET PO SCH ×2 (09:00→09:28)
[2020-10-10] MEDS: FLUTICASONE/VILANTEROL 1 EACH BLST.W.DEV IH SCH ×2 (09:00→09:29)
[2020-10-10] MEDS: MISOPROSTOL 100 MCG TABLET PO SCH ×4 (09:00→17:00)
[2020-10-10] MEDS: ISOSORBIDE DINITRATE (20MG) 20 MG TABLET PO SCH ×4 (09:00→17:00)
[2020-10-10] MEDS: LEVOTHYROXINE SODIUM 25 MCG TABLET PO SCH ×2 (09:00→09:27)
[2020-10-10] MEDS: MULTIVIT W/MINERALS 1 TAB TABLET PO SCH ×2 (09:00→09:26)
[2020-10-10] MEDS: CHOLECALCIFEROL 1,000 UNIT TABLET (VIT D3) PO SCH ×2 (09:00→09:26)
[2020-10-10] MEDS: FERROUS SULFATE (325 MG) 325 MG/TAB TABLET PO SCH ×2 (09:00→09:29)
[2020-10-10] MEDS: MAGNESIUM OXIDE 400 MG TABLET PO SCH ×2 (09:00→09:27)
[2020-10-10] MEDS: FOLIC ACID 1 MG TABLET PO SCH ×2 (09:00→09:28)
[2020-10-10] MEDS: OCTREOTIDE 50 MCG/ML AMPUL SQ SCH ×3 (09:00→17:00)
[2020-10-10] MEDS: SPIRONOLACTONE 25 MG TABLET PO SCH ×2 (09:00→09:28)
[2020-10-10] MEDS: MIDODRINE HCL (5MG) 5 MG TABLET PO SCH ×4 (09:00→17:00)
[2020-10-10] MEDS: DEXAMETHASONE SOD PHOSPHATE 10 MG/ML VIAL IV SCH (09:29)
[2020-10-10] MEDS: NYSTATIN TOP POWDER 15 GM BOTTLE TP SCH ×2 (09:31→17:34)
[2020-10-10] MEDS: INSULIN REGULAR, HUMAN 100 UNIT/ML 3 ML VIAL SQ PRN ×2 (09:55→17:34)
[2020-10-10 16:00] VITALS: BP_SYST 103; BP_SYST 123; BP_DIAS 63; BP_DIAS 65
[2020-10-10 20:38] VITALS: BP 123/81
== END 2020-10-10 20:45 | DRG 432 ==
LOC: ER 19:15 → TELE1 22:52 → MEDSG1 10-02 11:51
PROVIDERS: ADMIT Nurse Practitioner Acute Care
PROC: 0W9G3ZZ Drainage of Peritoneal Cavity, Percutaneous Approach (ICD-10-PCS; principal; 2020-10-01)
PROC: 5A1D70Z Performance of Urinary Filtration, Intermittent, Less than 6 Hours Per Day (ICD-10-PCS; 2020-10-08)
PROC: 06HY33Z Insertion of Infusion Device into Lower Vein, Percutaneous Approach (ICD-10-PCS; 2020-10-09)
DX: K74.60 Unspecified cirrhosis of liver (principal); U07.1 COVID-19; E43 Unspecified severe protein-calorie malnutrition; G93.41 Metabolic encephalopathy; N17.0 Acute kidney failure with tubular necrosis; K76.7 Hepatorenal syndrome; R18.8 Other ascites; D68.59 Other primary thrombophilia; I13.0 Hypertensive heart and chronic kidney disease with heart failure and stage 1 through stage 4 chronic kidney disease, or unspecified chronic kidney disease; D61.818 Other pancytopenia; K76.6 Portal hypertension; I07.1 Rheumatic tricuspid insufficiency; N18.9 Chronic kidney disease, unspecified; Z86.16 Personal history of COVID-19; Z87.01 Personal history of pneumonia (recurrent); I27.20 Pulmonary hypertension, unspecified; D63.8 Anemia in other chronic diseases classified elsewhere; K21.00 Gastro-esophageal reflux disease with esophagitis, without bleeding; E11.22 Type 2 diabetes mellitus with diabetic chronic kidney disease; E11.42 Type 2 diabetes mellitus with diabetic polyneuropathy; R42 Dizziness and giddiness; E03.9 Hypothyroidism, unspecified; E78.5 Hyperlipidemia, unspecified; I35.0 Nonrheumatic aortic (valve) stenosis; F03.90 Unspecified dementia, unspecified severity, without behavioral disturbance, psychotic disturbance, mood disturbance, and anxiety; M81.0 Age-related osteoporosis without current pathological fracture; Z95.1 Presence of aortocoronary bypass graft; I50.9 Heart failure, unspecified; I25.10 Atherosclerotic heart disease of native coronary artery without angina pectoris; K57.90 Diverticulosis of intestine, part unspecified, without perforation or abscess without bleeding; K29.70 Gastritis, unspecified, without bleeding; G89.29 Other chronic pain; M79.7 Fibromyalgia; Z90.49 Acquired absence of other specified parts of digestive tract; Z98.890 Other specified postprocedural states; Z98.61 Coronary angioplasty status; Z88.1 Allergy status to other antibiotic agents; Z79.84 Long term (current) use of oral hypoglycemic drugs; Z79.899 Other long term (current) drug therapy; L89.156 Pressure-induced deep tissue damage of sacral region; L30.4 Erythema intertrigo; Z83.3 Family history of diabetes mellitus; Z82.49 Family history of ischemic heart disease and other diseases of the circulatory system; Z86.73 Personal history of transient ischemic attack (TIA), and cerebral infarction without residual deficits; Z74.09 Other reduced mobility
CPT/HCPCS: 36415; 71045-TC; 76705-TC; 76942-TC; 80048-TC; 80053-TC; 80076-TC; 82140-TC; 82550-TC; 82728-TC; 82784; 82962-TC; 83540-TC; 83605-TC; 83690-TC; 83735-TC; 83880; 83970; 84100-TC; 84155; 84165; 84439-TC; 84443-TC; 85025-TC; 85378-TC; 85610-TC; 85730-TC; 86140-TC; 86225; 86235; 86334; 86431-TC; 86704; 86705; 86706; 86803; 87081-TC; 87340; 90935-TC; 94799-TC; A4216; C1750; C9803; G0378; J1100; J1815; J2354; J2405; J7050; P9047; U0003